=== PATIENT | female | born 1960 | race Caucasian/White ===

== ENCOUNTER 2019-07-16 14:55 | Outpatient (CLI) | payer OTHER, SELFPAY ==
[2019-07-18 17:56] LABS: Intrinsic Factor Blocking Ab Negative (Negative)
[2019-07-19 22:08] LABS: Methylmalonic Acid 240 nmol/L (87-318)
== END 2019-07-16 14:56 | disposition home or self-care (01) ==
LOC: CHSLAB 14:58
PROVIDERS: PCP Internal Medicine; Visit Provider Internal Medicine
DX: R79.0 Abnormal level of blood mineral (principal); E53.8 Deficiency of other specified B group vitamins; E83.10 Disorder of iron metabolism, unspecified; R79.89 Other specified abnormal findings of blood chemistry
CPT/HCPCS: 36415; 81256; 83921; 86340

== ENCOUNTER 2019-08-13 07:58 | Outpatient (CLI) | payer OTHER, SELFPAY ==
--- NOTE | ~2019-08-13 | US_ITS ---
US right upper quadrant INDICATION: Elevated liver enzymes PROCEDURE: Realtime right upper abdominal ultrasound. COMPARISON: No prior studies for comparison. FINDINGS: The pancreas is normal without focal mass or pancreatic ductal dilation. Liver echotexture is increased, consistent with fatty infiltration. There is normal directional flow in the portal ve in. The gallbladder is normal without stones, gallbladder wall thickening or pericholecystic fluid. Comm on bile duct measures 3 mm. No sonographic Johnson's sign. IMPRESSION: 1: Fatty infiltration of the liver. Reviewed, dictated and finalized at location A.
== END 2019-08-13 07:59 | disposition home or self-care (01) ==
PROVIDERS: PCP Internal Medicine; Visit Provider Internal Medicine
DX: R94.5 Abnormal results of liver function studies (principal)
CPT/HCPCS: 76705

== ENCOUNTER 2019-08-29 07:57 | Outpatient (RCR) | payer OTHER, SELFPAY ==
--- NOTE | 2019-08-29 08:49 | PTOPEVAL ---
Thank you for referring Camille Shultz to [facility]. Please review, sign, date and return this plan of care NILO. I agree with and certify that the following plan of care is medically necessary. Referring Physician Date Admitting Provider: Attending Provider: Yancy Guerrero MD Referring Provider: *PT Outpatient Evaluation Start: 08/29/19 08:07 Freq: Status: Active Protocol: Document 08/29/19 08:08 LUCIEN (Rec: 08/29/19 08:43 LUCIEN [id number]) Therapy Assessment Status Assessment Status Assessment Status Evaluation Outpatient Past Medical History Neurological History Hx Neurological Disorders No Significant History Cardiovascular History Hx Hypercholesterolemia Yes Hx Hypertension Yes Respiratory History Hx Other Respiratory Disorders Yes: Recent Flu A Gastrointestinal History Hx Gastrointestinal Disorders No Significant History Genitourinary History Hx Genitourinary Disorders No Significant History Musculoskeletal History Hx Musculoskeletal Disorders No Significant History Hematological History Hx Hematological Disorders No Significant History Psychosocial History Hx Anxiety Yes Pain History History of Any Previous or Ongoing No Significant History Instance of Pain Anesthesia History Hx Anesthesia Reactions No Significant History Evaluation Information Problem Diagnosis cervical radiculopathy Onset 06/17/19 Subjective Information 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 She states that pain is located at the neck and radiates into the left shoulder. She reports turning her head to the left while driving will also increase her pain. she states that she had MRI about 3 years ago which revealed disc bulging and arthritis in the neck. She states that her neck pain will wake her at night, espeically with sleeping on her side. Pt. reports that her goal for therapy is to reduce her neck pain. 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
--- NOTE | 2019-09-03 16:05 | PCPTNOTE ---
09/03/19-pt cancelled today's appointment secondary to sinus headache. -.
--- NOTE | 2019-09-30 10:14 | PTOPEVAL ---
Thank you for referring Camille Shultz to [facility].? The patient is scheduled to be seen for therapy? ____x/week for ___ weeks. Please review, sign, date and return this plan of care NILO. I agree with and certify that the following plan of care is medically necessary. Referring Physician Date Admitting Provider: Attending Provider: Yancy Guerrero MD Referring Provider: *PT Outpatient Evaluation Start: 08/29/19 08:07 Freq: Status: Active Protocol: Document 09/30/19 09:25 LUCIEN (Rec: 09/30/19 10:10 LUCIEN [id number]) Outpatient Past Medical History Neurological History Hx Neurological Disorders No Significant History Cardiovascular History Hx Hypercholesterolemia Yes Hx Hypertension Yes Respiratory History Hx Other Respiratory Disorders Yes: Recent Flu A Gastrointestinal History Hx Gastrointestinal Disorders No Significant History Genitourinary History Hx Genitourinary Disorders No Significant History Musculoskeletal History Hx Musculoskeletal Disorders No Significant History Hematological History Hx Hematological Disorders No Significant History Psychosocial History Hx Anxiety Yes Pain History History of Any Previous or Ongoing No Significant History Instance of Pain Anesthesia History Hx Anesthesia Reactions No Significant History Evaluation Information Problem Diagnosis cervical radiculopathy Onset 06/17/19 Additional Evaluation Detail NDI=12% disability Subjective Information Pt. reports pain is less Query Text:As Reported By Patient/ intense. She reports being Family more concious of her posture at this time Pain Assessment Pain Scale Pain Scale Used Numeric (1 - 10) Self Report Pain Assessment Neck Reported Pain Level 3 Lowest Pain Intensity 0 Greatest Pain Intensity 3 Pain Score Pain Score 3: Self Report Cervical and Lumbar ROM Cervical ROM Cervical Flexion (0-60) 55 Query Text:Active in Degrees Cervical Extension (0-70) 50 Query Text:Active in Degrees Cervical Lateral Flexion Right (0-50) 40 Query Text:Active in Degrees Cervical Lateral Flexion Left (0-50) 35 Query Text:Active in Degrees Cervical Rotation Right (0-90) 75 Query Text:Active in Degrees Cervical Rotation Left (0-90) 55 Query Text:Active in Degrees Upper Extremity Muscle Strength Testing General Upper Extremity Strength Gross Upper Extremity Strength Comments bilateral shoulder flexion 5/5 , right shoulder ER 4+/5, left shoulder ER 5/5, bilateral shoulder abduction 5/5,
== END 2019-09-30 10:48 | disposition home or self-care (01) ==
LOC: CHSPT 07:57
PROVIDERS: PCP Internal Medicine; Visit Provider Internal Medicine
DX: M54.12 Radiculopathy, cervical region (principal)
CPT/HCPCS: 97012; 97014; 97110; 97161; G0283

== ENCOUNTER 2019-10-18 07:02 | Outpatient (CLI) | payer OTHER, SELFPAY ==
[2019-10-18 08:38] LABS: Alanine Aminotransferase 45 U/L (14-59); Alkaline Phosphatase 60 U/L (46-116); Anion Gap 8 mmol/L (8-16); Aspartate Amino Transferase 28 U/L (15-37); Bilirubin,Total 0.6 mg/dL (0.00-1.00); Blood Urea Nitrogen 14 mg/dL (7-18); Calcium 9.5 mg/dL (8.5-10.1); Carbon Dioxide 27 mmol/L (21-32); Chloride 104 mmol/L (98-108); Estimated Glomerular Filt Rate 50; Glucose 141 mg/dL (70-99); Osmolality Calculated 290 mOsm/kg (285-295); Potassium 4.2 mmol/L (3.5-5.1); Sodium 139 mmol/L (136-145); Total Protein 7.4 g/dL (6.4-8.2)
[2019-10-18 17:16] LABS: Basophils Absolute Auto 0.03 K/mm3 (0.00-0.10); Basophils Percent Auto 0.6 % (0.0-1.0); Eosinophils Absolute Auto 0.09 K/mm3 (0.02-0.50); Eosinophils Percent Auto 1.7 % (1.0-6.0); Hematocrit 40.4 % (35.0-49.0); Hemoglobin 12.7 g/dL (12.0-15.0); Immature Granulocyte Absolute 0.02 K/mm3 (0.00-0.00); Immature Granulocyte Percent A 0.4 % (0.0-0.0); Lymphocytes Percent Auto 37.7 % (18.0-42.0); Mean Corpuscular HGB Conc 31.4 g/dL (32.0-36.0); Mean Corpuscular Hemoglobin 32.5 pg (27.0-31.0); Mean Corpuscular Volume 103.3 fL (78.0-102.0); Mean Platelet Volume 10.1 fl (9.2-11.8); Monocytes Absolute Auto 0.66 K/mm3 (0.10-0.90); Monocytes Percent Auto 12.5 % (2.0-11.0); Neutrophils Absolute Auto 2.5 K/mm3 (1.7-7.2); Neutrophils Percent Auto 47.1 % (50.0-70.0); Platelet Count Result 368 K/mm3 (150-420); Red Blood Count 3.91 M/mm3 (4.20-5.40); Red Cell Distribution Width 13.9 % (11.6-14.4); White Blood Count 5.3 K/mm3 (4.8-10.8)
[2019-10-18 17:52] LABS: Vitamin B12 338 pg/mL (193-986)
== END 2019-10-18 07:03 | disposition home or self-care (01) ==
LOC: CHSAUDIO 07:04
PROVIDERS: PCP Internal Medicine; Visit Provider Internal Medicine
DX: R94.5 Abnormal results of liver function studies (principal); D51.9 Vitamin B12 deficiency anemia, unspecified
CPT/HCPCS: 36415; 80053; 82607; 85025

== ENCOUNTER 2020-01-03 12:08 | Outpatient (CLI) | payer OTHER, SELFPAY ==
[2020-01-03 12:25] LABS: Basophils Absolute Auto 0.03 K/mm3 (0.00-0.10); Basophils Percent Auto 0.5 % (0.0-1.0); Eosinophils Absolute Auto 0.07 K/mm3 (0.02-0.50); Eosinophils Percent Auto 1.1 % (1.0-6.0); Hematocrit 39.4 % (35.0-49.0); Immature Granulocyte Absolute 0.01 K/mm3 (0.00-0.00); Immature Granulocyte Percent A 0.2 % (0.0-0.0); Lymphocytes Absolute Auto 2.27 K/mm3 (1.10-4.50); Mean Corpuscular Hemoglobin 32.1 pg (27.0-31.0); Mean Corpuscular Volume 97.3 fL (78.0-102.0); Mean Platelet Volume 9.6 fl (9.2-11.8); Monocytes Absolute Auto 0.48 K/mm3 (0.10-0.90); Monocytes Percent Auto 7.6 % (2.0-11.0); Neutrophils Absolute Auto 3.5 K/mm3 (1.7-7.2); Neutrophils Percent Auto 54.6 % (50.0-70.0); Platelet Count Result 265 K/mm3 (150-420); Red Blood Count 4.05 M/mm3 (4.20-5.40); Red Cell Distribution Width 12.9 % (11.6-14.4); White Blood Count 6.3 K/mm3 (4.8-10.8)
[2020-01-03 12:30] LABS: Add Urine Microscopic? YES; Appearance Urine Sl Cloudy (Clear); Bilirubin Urine Negative (Negative); Blood Urine Negative (Negative); Color Urine Yellow (Yellow); Glucose Urine UA Negative (Negative); Ketones Urine Negative (Negative); Leukocyte Esterase Ur 1+ (Negative); Nitrate Urine Positive (Negative); Protein Urine Negative (Negative); Specific Grav Ur 1.025 (1.010-1.020); Urobilinogen Urine 0.2 mg/dL (0.2-1.0)
[2020-01-03 12:38] LABS: Bacteria Urine 3+ /hpf; RBC Urine 0-2 /hpf (0-2); Squamous Epithelial Cell Urine Occasional /hpf (Few); WBC Urine 21-30 /hpf (0-3)
[2020-01-03 13:55] LABS: Alanine Aminotransferase 35 U/L (14-59); Albumin Level 3.7 g/dL (3.4-5.0); Alkaline Phosphatase 55 U/L (46-116); Anion Gap 7 mmol/L (8-16); Aspartate Amino Transferase 18 U/L (15-37); Bilirubin,Total 0.3 mg/dL (0.00-1.00); Blood Urea Nitrogen 16 mg/dL (7-18); Calcium 9.5 mg/dL (8.5-10.1); Carbon Dioxide 30 mmol/L (21-32); Chloride 106 mmol/L (98-108); Estimated Glomerular Filt Rate > 60; Ferritin 543 ng/mL (8-252); Free T4 Free Thyroxine 0.75 ng/dL (0.76-1.46); Glucose 132 mg/dL (70-99); Iron 72 ug/dL (50-170); Osmolality Calculated 299 mOsm/kg (285-295); Percent Iron Saturation 17 % (12-57); Potassium 4.2 mmol/L (3.5-5.1); Sodium 143 mmol/L (136-145); Thyroid Stimulating Hormone 1.42 uIU/mL (0.36-3.74); Total Protein 6.9 g/dL (6.4-8.2); Vitamin B12 376 pg/mL (193-986)
[2020-01-04 08:45] LABS: Cholesterol 184 mg/dL (0-200); HDL Direct 45 mg/dL (40-60); LDL Cholesterol Calculated 86 mg/dL (<130); Triglycerides 263 mg/dL (0-150)
[2020-01-08 12:24] LABS: Vitamin D 25 Hydroxy 41 ng/mL (30-100)
== END 2020-01-03 12:09 | disposition home or self-care (01) ==
LOC: CHSLAB 12:11
PROVIDERS: PCP Internal Medicine; Visit Provider Internal Medicine
DX: E55.9 Vitamin D deficiency, unspecified (principal); E53.8 Deficiency of other specified B group vitamins; R94.5 Abnormal results of liver function studies; I10 Essential (primary) hypertension; R73.01 Impaired fasting glucose; R79.0 Abnormal level of blood mineral
CPT/HCPCS: 36415; 80053; 80061; 81001; 82306; 82607; 82728; 83036; 83540; 83550; 84439; 84443; 84481; 85025

== ENCOUNTER 2020-02-01 09:19 | Outpatient (CLI) | payer OTHER, SELFPAY ==
[2020-02-01 09:34] LABS: Add Urine Microscopic? NO; Appearance Urine Clear (Clear); Bilirubin Urine Negative (Negative); Blood Urine Negative (Negative); Color Urine Yellow (Yellow); Glucose Urine UA Negative (Negative); Ketones Urine Negative (Negative); Leukocyte Esterase Ur Negative (Negative); Nitrate Urine Negative (Negative); Protein Urine Negative (Negative); Specific Grav Ur >= 1.030 (1.010-1.020); Urobilinogen Urine 0.2 mg/dL (0.2-1.0); pH Urine 5.5 (5.0-8.0)
== END 2020-02-01 09:20 | disposition home or self-care (01) ==
PROVIDERS: PCP Internal Medicine; Visit Provider Internal Medicine
DX: N39.0 Urinary tract infection, site not specified (principal)
CPT/HCPCS: 81003; 87086; 87088

== ENCOUNTER 2020-04-20 15:42 | Outpatient (CLI) | payer OTHER, SELFPAY ==
--- NOTE | ~2020-04-20 | XR_ITS ---
EXAMINATION: XR knee LT min 4V DATE: 04/20/2020 16:04 INDICATION: Left knee pain. TECHNIQUE: 4 views of left knee were obtained. COMPARISON: None. FINDINGS: Bone alignment is normal. No fracture. There is mild tricompartmental osteoarthritis. No kn ee joint effusion. IMPRESSION: 1. Mild left knee osteoarthritis. Reviewed, dictated and finalized at location A. [employer]PER
== END 2020-04-20 15:43 | disposition home or self-care (01) ==
PROVIDERS: PCP Internal Medicine; Visit Provider Internal Medicine
DX: M25.562 Pain in left knee (principal)
CPT/HCPCS: 73564

== ENCOUNTER 2020-05-02 06:56 | Outpatient (CLI) | payer OTHER, SELFPAY ==
--- NOTE | ~2020-05-02 | MR_ITS ---
EXAMINATION: MR knee LT wo con DATE: 05/02/2020 07:42 INDICATION: Left knee pain TECHNIQUE: Magnetic resonance imaging (MRI) of the left knee was performed without intravenous contra st. Sequences included coronal PD-weighted FSE, coronal PD-weighted FS FSE, sagittal T2-weighted FSE , sagittal PD-weighted FS FSE and axial PD weighted fat saturated FSE. COMPARISON: None. FINDINGS: Medial compartment: Complex medial meniscal tear with longitudinal horizontal component extending to the inferior articul ar surface of the posterior body and posterior horn with an secondary segments examined radial tear p live at the posterior horn. Articular cartilage is normal. Lateral compartment: Lateral meniscus is normal. Small region of partial-thickness chondral fissuring at the posterior asmita tral aspect of the lateral tibial plateau. Patellofemoral compartment: Partial-thickness chondral ulceration and deep fissuring involving at least 50% of the cartilage thic kness but without degenerative subchondral changes along the caudal third of the medial patellar face t, apical ridge and inferomedial aspect of the lateral facet. Trochlear cartilage is normal. Ligaments and tendons: Anterior and posterior cruciate ligaments are normal. The medial collateral ligament and fibular jazmin ateral ligament complex are normal. Mild distal quadriceps without discrete tear. Patellar tendon is normal. The visualized medial and lateral hamstring tendons as well as the iliotibial band are normal . Fluid: Small 2 moderate-sized left knee joint effusion. No loose osteochondral bodies identified. Osseous/other: Normal marrow signal. No fracture or pathologic marrow replacing process. IMPRESSION: 1. Complex medial meniscal tear. 2. Mild medial and lateral compartment osteoarthritis with small region of moderate grade chondral ma lacia the lateral tibial plateau and more extensive moderate grade patellar chondromalacia. 3. Mild distal quadriceps tendinopathy. 4. Small to moderate left knee joint effusion. Reviewed, dictated and finalized at location A. IMPRESSION: 1. Complex medial meniscal tear. 2. Mild medial and lateral compartment osteoarthritis with small region of mode rate grade chondral malacia the lateral tibial plateau and more extensive moder ate grade patellar chondromalacia. 3. Mild distal quadriceps tendinopathy. 4. Small to moderate left knee joint effusion.
== END 2020-05-02 06:57 | disposition home or self-care (01) ==
LOC: CHSIMG 06:59
PROVIDERS: PCP Internal Medicine; Visit Provider Internal Medicine
DX: M25.562 Pain in left knee (principal)
CPT/HCPCS: 73721

== ENCOUNTER 2020-05-12 07:58 | Outpatient (RCR) | payer OTHER, SELFPAY ==
--- NOTE | 2020-05-12 09:07 | PTOPEVAL ---
Thank you for referring Camille Shultz to [facility].? The patient is scheduled to be seen for therapy? ____x/week for ___ weeks. Please review, sign, date and return this plan of care NILO. I agree with and certify that the following plan of care is medically necessary. Referring Physician Date Admitting Provider: Attending Provider: Yancy Guerrero MD Referring Provider: *PT Outpatient Evaluation Start: 05/12/20 08:09 Freq: Status: Active Protocol: Document 05/12/20 08:05 Hetal (Rec: 05/12/20 08:55 [facility] [email or web address]) Therapy Assessment Status Assessment Status Assessment Status Evaluation Outpatient Past Medical History Neurological History Hx Neurological Disorders No Significant History Cardiovascular History Hx Hypercholesterolemia Yes Hx Hypertension Yes Respiratory History Hx Other Respiratory Disorders Yes: Recent Flu A Gastrointestinal History Hx Gastrointestinal Disorders No Significant History Genitourinary History Hx Genitourinary Disorders No Significant History Musculoskeletal History Hx Musculoskeletal Disorders No Significant History Hematological History Hx Hematological Disorders No Significant History Psychosocial History Hx Anxiety Yes Pain History History of Any Previous or Ongoing No Significant History Instance of Pain Anesthesia History Hx Anesthesia Reactions No Significant History Evaluation Information Problem Diagnosis L knee pain, meniscus tear, DJD Onset 03/16/20 Additional Evaluation Detail LEFS = 62% functionally declined Subjective Information patient reports she has been Query Text:As Reported By Patient/ having pain in the L knee for Family about 1-2 months. she reports no injury to the L knee. she reports pain is worse with getting up after sitting or lying down for an extended time. she reports it is painful going up and down stairs. she reports increased pain/pressure with standing initially. she reports she also has noticed some clicking in the patella. patient reports she is unable to kneel down the floor to get up. patient reports negative x-ray, but MRI reports DJD, chondromalcia, and a L medial meniscus te
--- NOTE | 2020-06-30 13:31 | PCPTNOTE ---
06/30/20 - patient has not been to skilled PT in over a month. as of this date, she will be DC'd due to poor attendance. all progress towards goals will be taken from her most recent evaluation/note.
== END 2020-05-19 16:21 | disposition home or self-care (01) ==
LOC: CHSPT 07:58
PROVIDERS: PCP Internal Medicine; Visit Provider Internal Medicine
DX: M25.562 Pain in left knee (principal); S83.242A Other tear of medial meniscus, current injury, left knee, initial encounter; M17.12 Unilateral primary osteoarthritis, left knee
CPT/HCPCS: 97110; 97161

== ENCOUNTER 2020-05-27 11:16 | Outpatient (CLI) | payer OTHER, SELFPAY ==
[2020-05-27 12:17] LABS: SARS-CoV-2 RNA PCR Negative (Negative)
== END 2020-05-27 11:17 | disposition home or self-care (01) ==
LOC: CHSLAB 11:19
PROVIDERS: PCP Internal Medicine; Visit Provider Internal Medicine
DX: Z20.822 Contact with and (suspected) exposure to COVID-19 (principal)
CPT/HCPCS: C9803; U0003; U0005

== ENCOUNTER 2020-07-14 11:20 | Outpatient (CLI) | payer OTHER, SELFPAY ==
[2020-07-14 11:32] LABS: Basophils Absolute Auto 0.04 K/mm3 (0.00-0.10); Basophils Percent Auto 0.4 % (0.0-1.0); Eosinophils Absolute Auto 0.14 K/mm3 (0.02-0.50); Eosinophils Percent Auto 1.6 % (1.0-6.0); Hematocrit 41.2 % (35.0-49.0); Hemoglobin 14.1 g/dL (12.0-15.0); Immature Granulocyte Absolute 0.02 K/mm3 (0.00-0.00); Immature Granulocyte Percent A 0.2 % (0.0-0.0); Lymphocytes Absolute Auto 2.91 K/mm3 (1.10-4.50); Lymphocytes Percent Auto 32.6 % (18.0-42.0); Mean Corpuscular HGB Conc 34.2 g/dL (32.0-36.0); Mean Corpuscular Hemoglobin 30.9 pg (27.0-31.0); Mean Corpuscular Volume 90.2 fL (78.0-102.0); Mean Platelet Volume 9.2 fl (9.2-11.8); Monocytes Percent Auto 7.8 % (2.0-11.0); Neutrophils Absolute Auto 5.1 K/mm3 (1.7-7.2); Neutrophils Percent Auto 57.4 % (50.0-70.0); Platelet Count Result 243 K/mm3 (150-420); Red Blood Count 4.57 M/mm3 (4.20-5.40); White Blood Count 8.9 K/mm3 (4.8-10.8)
[2020-07-14 11:35] LABS: Add Urine Microscopic? NO; Appearance Urine Clear (Clear); Bilirubin Urine Negative (Negative); Blood Urine Negative (Negative); Color Urine Yellow (Yellow); Glucose Urine UA Negative (Negative); Ketones Urine Negative (Negative); Leukocyte Esterase Ur Negative LEU/UL (Negative); Nitrate Urine Negative (Negative); Protein Urine Negative (Negative); Specific Grav Ur >= 1.030 (1.010-1.020); Urobilinogen Urine 0.2 mg/dL (0.2-1.0); pH Urine 5.5 (5.0-8.0)
[2020-07-14 11:48] LABS: Hemoglobin A1C 6.6 % (<5.7)
[2020-07-14 11:56] LABS: Creatinine Urine 104.58 mg/dL (40-278); MALB Creatinine Ratio 12.4 mg/g (0-30); Microalbumin Urine Random < 13.0 mg/L
[2020-07-14 12:48] LABS: Alanine Aminotransferase 43 U/L (14-59); Albumin Level 3.9 g/dL (3.4-5.0); Alkaline Phosphatase 101 U/L (46-116); Anion Gap 11 mmol/L (8-16); Aspartate Amino Transferase 24 U/L (15-37); Bilirubin,Total 0.5 mg/dL (0.00-1.00); Blood Urea Nitrogen 29 mg/dL (7-18); Calcium 9.2 mg/dL (8.5-10.1); Carbon Dioxide 27 mmol/L (21-32); Chloride 100 mmol/L (98-108); Cholesterol 160 mg/dL (0-200); Creatine Kinase 108 U/L (26-192); Estimated Glomerular Filt Rate > 60; Glucose 108 mg/dL (70-99); HDL Direct 47 mg/dL (40-60); LDL Cholesterol Calculated 48 mg/dL (<130); Osmolality Calculated 292 mOsm/kg (285-295); Potassium 4.2 mmol/L (3.5-5.1); Sodium 138 mmol/L (136-145); Total Protein 7.3 g/dL (6.4-8.2); Triglycerides 325 mg/dL (0-150); Vitamin B12 625 pg/mL (193-986)
[2020-07-17 11:22] LABS: Vitamin D 25 Hydroxy 40 ng/mL (30-100)
== END 2020-07-14 11:21 | disposition home or self-care (01) ==
LOC: CHSLAB 11:22
PROVIDERS: PCP Internal Medicine; Visit Provider Internal Medicine
DX: R73.01 Impaired fasting glucose (principal); E78.5 Hyperlipidemia, unspecified; I10 Essential (primary) hypertension; E53.8 Deficiency of other specified B group vitamins; E55.9 Vitamin D deficiency, unspecified
CPT/HCPCS: 36415; 80053; 80061; 81003; 82043; 82306; 82550; 82607; 83036; 85025

== ENCOUNTER 2020-09-04 10:01 | Outpatient (RCR) | payer OTHER, SELFPAY ==
--- NOTE | 2020-09-04 10:49 | PTOPEVAL ---
Thank you for referring Camille Shultz to [facility].? The patient is scheduled to be seen for therapy? ____x/week for ___ weeks. Please review, sign, date and return this plan of care NILO. I agree with and certify that the following plan of care is medically necessary. Referring Physician Date Admitting Provider: Attending Provider: Timo Ac, Referring Provider: *PT Outpatient Evaluation Start: 09/04/20 10:09 Freq: Status: Active Protocol: Document 09/04/20 10:10 [facility] (Rec: 09/04/20 10:48 [facility] [email or web address]) Therapy Assessment Status Assessment Status Assessment Status Evaluation Outpatient Past Medical History Neurological History Hx Neurological Disorders No Significant History Cardiovascular History Hx Hypercholesterolemia Yes Hx Hypertension Yes Respiratory History Hx Other Respiratory Disorders Yes: Recent Flu A Gastrointestinal History Hx Gastrointestinal Disorders No Significant History Genitourinary History Hx Genitourinary Disorders No Significant History Musculoskeletal History Hx Musculoskeletal Disorders No Significant History Hematological History Hx Hematological Disorders No Significant History Psychosocial History Hx Anxiety Yes Pain History History of Any Previous or Ongoing No Significant History Instance of Pain Anesthesia History Hx Anesthesia Reactions No Significant History Evaluation Information Problem Diagnosis s/p L knee arthroscopy Onset 09/01/20 Additional Evaluation Detail LEFS = 77% functionally declined Subjective Information patient reports she injured Query Text:As Reported By Patient/ her L knee back in march. Family she reports she just had a L knee scope for a meniscus tear and cartilage damage. she reports she has been instructed to keep her L knee alexander bandage on until tomorrow. she reports she continues to have pain with walking, standing, and increased tightness/pain waking up in the mornings. she has decreased to 1 crutch for ambulation, but uses it under her L shoulder. Prior Level of Function Comments Additional Prior Level of Function prior to surgery, patient was Comments limping on the L LE. she reports prior to march she was ambulating without any
--- NOTE | 2020-09-25 09:11 | PTOPEVAL ---
Thank you for referring Camille Shultz to [facility].? The patient is scheduled to be seen for therapy? ____x/week for ___ weeks. Please review, sign, date and return this plan of care NILO. I agree with and certify that the following plan of care is medically necessary. Referring Physician Date Admitting Provider: Attending Provider: Timo Ac, Referring Provider: *PT Outpatient Evaluation Start: 09/04/20 10:09 Freq: Status: Active Protocol: Document 09/25/20 07:55 ACR (Rec: 09/25/20 09:10 ACR [email or web address]) Therapy Assessment Status Assessment Status Assessment Status Progress Outpatient Past Medical History Neurological History Hx Neurological Disorders No Significant History Cardiovascular History Hx Hypercholesterolemia Yes Hx Hypertension Yes Respiratory History Hx Other Respiratory Disorders Yes: Recent Flu A Gastrointestinal History Hx Gastrointestinal Disorders No Significant History Genitourinary History Hx Genitourinary Disorders No Significant History Musculoskeletal History Hx Musculoskeletal Disorders No Significant History Hematological History Hx Hematological Disorders No Significant History Psychosocial History Hx Anxiety Yes Pain History History of Any Previous or Ongoing No Significant History Instance of Pain Anesthesia History Hx Anesthesia Reactions No Significant History Evaluation Information Problem Diagnosis s/p L arthroscopy Onset 09/01/20 Subjective Information Patient states that she has a Query Text:As Reported By Patient/ lot of difficulty with Family ascending and descending the stairs due to the pain and weakness. She states that she would be unable to walk a mile . Patient states she is unable to get down on the ground and then get back up because bending the knee is so painful . The patient would like to continue to continue to work on her strength and bending the knee. Patient states she Pain Assessment Timing of Pain Assessment Timing of Pain Assessment Assessment Pain Scale Pain Scale Used Numeric (1 - 10) Self Report Pain Assessment Left Knee(s) Reported Pain Level 3 Lowest Pain Intensity 1 Greatest Pain Intensity 5 Pain Score Pain Score 3: Self Report Interventions Used Interventions Used By Clinicians Activity or ADL's,Exercise Lower Extremity Range of Motion Knee Range o
--- NOTE | 2021-02-10 06:58 | PCPTNOTE ---
02/10/21 - patient has not been to skilled PT in several months. as of this date, she will be dc'd from skilled PT services and all progress towards goals will be taken from her most recent evaluation/note. LAURA
== END 2020-11-04 23:59 | disposition home or self-care (01) ==
LOC: CHSPT 10:01
PROVIDERS: Visit Provider Orthopaedic Surgery Adult Reconstructive Orthopaedic Surgery
DX: M25.562 Pain in left knee (principal); G89.29 Other chronic pain
CPT/HCPCS: 97016; 97110; 97163; 97530

== ENCOUNTER 2021-03-21 08:25 | Outpatient (CLI) | payer OTHER, SELFPAY ==
[2021-03-21 08:54] LABS: Hematocrit 44.3 % (35.0-49.0); Hemoglobin 15.2 g/dL (12.0-15.0); Mean Corpuscular HGB Conc 34.3 g/dL (32.0-36.0); Mean Corpuscular Hemoglobin 32.9 pg (27.0-31.0); Mean Corpuscular Volume 95.9 fL (78.0-102.0); Mean Platelet Volume 9.7 fl (9.2-11.8); Platelet Count Result 237 K/mm3 (150-420); Red Blood Count 4.62 M/mm3 (4.20-5.40); Red Cell Distribution Width 12.9 % (11.6-14.4); White Blood Count 5.5 K/mm3 (4.8-10.8)
[2021-03-21 08:56] LABS: Add Urine Microscopic? NO; Appearance Urine Clear (Clear); Bilirubin Urine Negative (Negative); Blood Urine Negative (Negative); Color Urine Light Yellow (Yellow); Glucose Urine UA Negative (Negative); Ketones Urine Negative (Negative); Leukocyte Esterase Ur Negative LEU/UL (Negative); Nitrate Urine Negative (Negative); Protein Urine Negative (Negative); Specific Grav Ur 1.015 (1.010-1.020); Urobilinogen Urine 0.2 mg/dL (0.2-1.0); pH Urine 5.5 (5.0-8.0)
[2021-03-21 09:01] LABS: Creatinine Urine 61.44 mg/dL (40-278); MALB Creatinine Ratio 21.1 mg/g (0-30); Microalbumin Urine Random < 13.0 mg/L
[2021-03-21 09:50] LABS: Alanine Aminotransferase 31 U/L (14-59); Alkaline Phosphatase 77 U/L (46-116); Anion Gap 10 mmol/L (8-16); Aspartate Amino Transferase 19 U/L (15-37); Bilirubin,Total 0.4 mg/dL (0.00-1.00); Blood Urea Nitrogen 20 mg/dL (7-18); Carbon Dioxide 29 mmol/L (21-32); Chloride 102 mmol/L (98-108); Cholesterol 191 mg/dL (0-200); Creatine Kinase 107 U/L (26-192); Estimated Glomerular Filt Rate > 60; Glucose 117 mg/dL (70-99); HDL Direct 53 mg/dL (40-60); LDL Cholesterol Calculated 82 mg/dL (<130); Osmolality Calculated 295 mOsm/kg (285-295); Potassium 3.7 mmol/L (3.5-5.1); Sodium 141 mmol/L (136-145); Total Protein 7.6 g/dL (6.4-8.2); Triglycerides 281 mg/dL (0-150); Vitamin B12 564 pg/mL (193-986)
== END 2021-03-21 08:26 | disposition home or self-care (01) ==
LOC: CHSLAB 08:27
PROVIDERS: PCP Internal Medicine; Visit Provider Internal Medicine
DX: E78.2 Mixed hyperlipidemia (principal); I10 Essential (primary) hypertension; E53.8 Deficiency of other specified B group vitamins; R73.01 Impaired fasting glucose
CPT/HCPCS: 36415; 80053; 80061; 81003; 82043; 82550; 82607; 83036; 85027

== ENCOUNTER 2021-09-13 15:21 | Outpatient (CLI) | payer OTHER, SELFPAY ==
[2021-09-13 15:40] LABS: Basophils Absolute Auto 0.03 K/mm3 (0.00-0.10); Basophils Percent Auto 0.4 % (0.0-1.0); Eosinophils Absolute Auto 0.12 K/mm3 (0.02-0.50); Eosinophils Percent Auto 1.8 % (1.0-6.0); Hematocrit 37.6 % (35.0-49.0); Hemoglobin 12.8 g/dL (12.0-15.0); Immature Granulocyte Absolute 0.03 K/mm3 (0.00-0.00); Immature Granulocyte Percent A 0.4 % (0.0-0.0); Lymphocytes Absolute Auto 2.31 K/mm3 (1.10-4.50); Lymphocytes Percent Auto 33.8 % (18.0-42.0); Mean Corpuscular Hemoglobin 33.6 pg (27.0-31.0); Mean Corpuscular Volume 98.7 fL (78.0-102.0); Mean Platelet Volume 9.4 fl (9.2-11.8); Monocytes Absolute Auto 0.58 K/mm3 (0.10-0.90); Monocytes Percent Auto 8.5 % (2.0-11.0); Neutrophils Absolute Auto 3.8 K/mm3 (1.7-7.2); Neutrophils Percent Auto 55.1 % (50.0-70.0); Platelet Count Result 204 K/mm3 (150-420); Red Blood Count 3.81 M/mm3 (4.20-5.40); Red Cell Distribution Width 12.8 % (11.6-14.4); White Blood Count 6.8 K/mm3 (4.8-10.8)
[2021-09-13 16:45] LABS: Alanine Aminotransferase 29 U/L (14-59); Albumin Level 3.8 g/dL (3.4-5.0); Alkaline Phosphatase 57 U/L (46-116); Anion Gap 9 mmol/L (8-16); Aspartate Amino Transferase 20 U/L (15-37); Bilirubin,Total 0.3 mg/dL (0.00-1.00); Blood Urea Nitrogen 23 mg/dL (7-18); Calcium 9.2 mg/dL (8.5-10.1); Carbon Dioxide 29 mmol/L (21-32); Chloride 104 mmol/L (98-108); Estimated Glomerular Filt Rate 57; Free T3 2.54 pg/mL (2.18-3.98); Free T4 Free Thyroxine 0.77 ng/dL (0.76-1.46); Glucose 121 mg/dL (70-99); Osmolality Calculated 298 mOsm/kg (285-295); Potassium 3.9 mmol/L (3.5-5.1); Sodium 142 mmol/L (136-145); Thyroid Stimulating Hormone 2.26 uIU/mL (0.36-3.74); Vitamin B12 1071 pg/mL (193-986)
[2021-09-13 16:47] LABS: Erythrocyte Sedimentation Rate 14 mm/hr (0-20)
[2021-09-13 16:49] LABS: CRP < 0.2 mg/dL (0.0-0.9)
[2021-09-16 13:09] LABS: Complement C3 171 mg/dL (83-193); Immunoglobulin G 924 mg/dL (600-1640)
[2021-09-20 07:28] LABS: SS-A <1.0; SS-B <1.0
== END 2021-09-13 15:22 | disposition home or self-care (01) ==
LOC: CHSLAB 15:23
PROVIDERS: PCP Internal Medicine; Visit Provider Internal Medicine
DX: G62.9 Polyneuropathy, unspecified (principal)
CPT/HCPCS: 36415; 80053; 82607; 82784; 84439; 84443; 84481; 85025; 85652; 86038; 86140; 86160; 86235

== ENCOUNTER 2021-10-13 12:32 | Outpatient (CLI) | payer OTHER, SELFPAY ==
--- NOTE | ~2021-10-13 | MM_ITS ---
EXAMINATION: MM screening rachael BI w shavon HISTORY: Screening mammogram TECHNIQUE: Craniocaudal and mediolateral oblique 3-D tomosynthesis images were obtained and synthetic 2-D images were generated. CAD analysis was submitted and interpreted. COMPARISON: No prior mammogram is available for comparison at this institution. BREAST PARENCHYMAL COMPOSITION: There are scattered areas of fibroglandular density. FINDINGS: RIGHT BREAST: There is no suspicious mass, calcification, or architectural distortion to suggest kasia gnancy. LEFT BREAST: There is a focal asymmetry in the anterior/middle third of the slightly upper breast bes t appreciated 4 cm from the nipple on the mediolateral oblique view. IMPRESSION: 1. Focal asymmetry of the left breast which may represent the patient's baseline however no compariso n is currently available. 2. Comparison with prior mammograms is necessary. BI-RADS Category 0: Incomplete: Needs comparison with prior mammograms. Reviewed, dictated and finalized at location A. IMPRESSION: 1. Focal asymmetry of the left breast which may represent the patient's baselin e however no comparison is currently available. 2. Comparison with prior mammograms is necessary. BI-RADS Category 0: Incomplete: Needs comparison with prior mammograms.
--- NOTE | ~2021-10-13 | DEXA_ITS ---
Bone Density Report Name: JULI KOO Age: 61 Sex: Female Ethnicity: White Date of : 1960 Indication: postmenopausal; screening for osteoporosis; height loss; prior fracture; hysterectomy; Referring Provider: Yancy Guerrero Study: Bone densitometry was performed. Exam Date: October 13, 2021 Accession number: [id number] Bone Density: Region BMD T-score Z-score Classification AP Spine(L1, L2, L3) 1.291 2.5 3.9 Normal Femoral Neck (Left) 0.880 0.3 1.6 Normal Total Hip (Left) 1.026 0.7 1.6 Normal Femoral Neck (Right) 0.868 0.2 1.5 Normal Total Hip (Right) 1.005 0.5 1.5 Normal Femoral Neck Mean 0.874 0.2 1.5 Normal Total Hip Mean 1.015 0.6 1.6 Normal World Health Organization criteria for BMD impression classify patients as: Normal (T-score at or above -1.0), Osteopenia (T-score between -1.0 and -2.5), or Osteoporosis (T-score at or below -2.5). 10-year Fracture Risk: FRAX not reported because: All T-scores for Spine Total, Hip Total, Femoral Neck at or above -1.0 Clinical Information Provided by Patient: Has had a low trauma fracture Has used the following medications: HRT (i.e. estrogen/hormone therapy), Vitamin D, Calcium Has the following medical conditions: Hysterectomy Patient maximum height was 67 Menopause Age: 55 Onset of menses at age 15 Number of children 2 Impression: The patient has normal bone mass. The patient has risk factors, including: previous fracture. Discussion: BONE DENSITY IS ABOVE THE MINIMUM DESIRABLE LEVEL AT ALL SKELETAL SITES TESTED. This patient?s bone mineral density is above the minimum desirable level (T-score -1.0 or better) at all sites measured. The patient should follow a healthful lifestyle (good nutrition with adequate calcium and vitamin D, and appropriate weight-bearing exercise). Follow-Up: Consider repeating this study in 5 years or sooner if there is some new clinical indication. Reported by: Dr. Antolin Alvares on 10/13/2021 1:11:00 PM. Reviewed, dictated and finalized at location A. [facility]
== END 2021-10-13 12:33 | disposition home or self-care (01) ==
LOC: CHSIMG 12:33
PROVIDERS: PCP Internal Medicine; Visit Provider Internal Medicine
DX: M81.0 Age-related osteoporosis without current pathological fracture (principal); Z12.31 Encounter for screening mammogram for malignant neoplasm of breast
CPT/HCPCS: 77063; 77067; 77080

== ENCOUNTER 2021-10-29 08:59 | Outpatient (CLI) | payer OTHER, SELFPAY ==
--- NOTE | ~2021-10-29 | MMUS_ITS ---
EXAMINATION: MM diagnostic rachael LT w shavon, US breast LT complete HISTORY: Focal asymmetry reported in anterior/middle third of slightly upper left breast on MLO scree gm view of 10/13/2021 TECHNIQUE: Additional 3-D tomosynthesis images of the left breast were performed and synthetic 2-D im ages were generated. CAD analysis was submitted and interpreted. High resolution complete left breast ultrasound including all 4 quadrants and subareolar area was performed. COMPARISON: 03/04/2016 [facility] bilateral screening mammogram 10/13/2021 bilateral screening mammogram FINDINGS: MAMMOGRAPHIC FINDINGS: No suspicious mass or architectural distortion, malignant calcification, skin thickening or retractio n or significant new or developing density is detected. ULTRASOUND: Normal-appearing left axillary lymph node. No suspicious left breast mass or shadowing is detected. IMPRESSION: 1. No mammographic evidence of malignancy 2. Routine annual mammographic screening is recommended. BI-RADS Category 1: Negative Reviewed, dictated and finalized at location A. IMPRESSION: 1. No mammographic evidence of malignancy 2. Routine annual mammographic screening is recommended. BI-RADS Category 1: Negative
== END 2021-10-29 09:00 | disposition home or self-care (01) ==
LOC: CHSIMG 09:00
PROVIDERS: PCP Internal Medicine; Visit Provider Internal Medicine
DX: R92.8 Other abnormal and inconclusive findings on diagnostic imaging of breast (principal)
CPT/HCPCS: 76641; 77061; 77065; G0279

== ENCOUNTER 2021-11-11 08:14 | Outpatient (CLI) | payer OTHER, SELFPAY ==
[2021-11-11 08:31] LABS: Basophils Absolute Auto 0.04 K/mm3 (0.00-0.10); Basophils Percent Auto 0.7 % (0.0-1.0); Eosinophils Absolute Auto 0.09 K/mm3 (0.02-0.50); Eosinophils Percent Auto 1.6 % (1.0-6.0); Hemoglobin 13.1 g/dL (12.0-15.0); Immature Granulocyte Absolute 0.01 K/mm3 (0.00-0.00); Immature Granulocyte Percent A 0.2 % (0.0-0.0); Lymphocytes Percent Auto 31.8 % (18.0-42.0); Mean Corpuscular HGB Conc 33.6 g/dL (32.0-36.0); Mean Corpuscular Hemoglobin 32.7 pg (27.0-31.0); Mean Corpuscular Volume 97.3 fL (78.0-102.0); Mean Platelet Volume 9.5 fl (9.2-11.8); Monocytes Absolute Auto 0.41 K/mm3 (0.10-0.90); Monocytes Percent Auto 7.2 % (2.0-11.0); Neutrophils Absolute Auto 3.3 K/mm3 (1.7-7.2); Neutrophils Percent Auto 58.5 % (50.0-70.0); Platelet Count Result 263 K/mm3 (150-420); Red Blood Count 4.01 M/mm3 (4.20-5.40); Red Cell Distribution Width 13.2 % (11.6-14.4); White Blood Count 5.7 K/mm3 (4.8-10.8)
[2021-11-11 08:32] LABS: Appearance Urine Clear (Clear); Bilirubin Urine Negative (Negative); Blood Urine Negative (Negative); Glucose Urine UA Negative (Negative); Ketones Urine Negative (Negative); Leukocyte Esterase Ur Trace (Negative); Nitrate Urine Positive (Negative); Protein Urine Negative (Negative); Specific Grav Ur 1.025 (1.010-1.020); Urobilinogen Urine 0.2 mg/dL (0.2-1.0)
[2021-11-11 08:38] LABS: Add Urine Microscopic? YES; Bacteria Urine 2+ /hpf; Color Urine Light Yellow (Yellow); RBC Urine None seen /hpf (0-2); Squamous Epithelial Cell Urine Rare /hpf (Few)
[2021-11-11 08:49] LABS: Hemoglobin A1C 5.8 % (<5.7)
[2021-11-11 09:16] LABS: Alanine Aminotransferase 25 U/L (14-59); Albumin Level 3.6 g/dL (3.4-5.0); Alkaline Phosphatase 65 U/L (46-116); Anion Gap 9 mmol/L (8-16); Aspartate Amino Transferase 16 U/L (15-37); Bilirubin,Total 0.6 mg/dL (0.00-1.00); Blood Urea Nitrogen 22 mg/dL (7-18); Calcium 9.4 mg/dL (8.5-10.1); Carbon Dioxide 28 mmol/L (21-32); Chloride 103 mmol/L (98-108); Cholesterol 236 mg/dL (0-200); Creatine Kinase 69 U/L (26-192); Estimated Glomerular Filt Rate > 60; Free T3 2.88 pg/mL (2.18-3.98); Free T4 Free Thyroxine 0.79 ng/dL (0.76-1.46); Glucose 127 mg/dL (70-99); HDL Direct 52 mg/dL (40-60); LDL Cholesterol Calculated 130 mg/dL (<130); Osmolality Calculated 295 mOsm/kg (285-295); Sodium 140 mmol/L (136-145); Thyroid Stimulating Hormone 2.23 uIU/mL (0.36-3.74); Total Protein 7.3 g/dL (6.4-8.2); Triglycerides 268 mg/dL (0-150); Vitamin B12 394 pg/mL (193-986)
[2021-11-13 21:46] LABS: Vitamin D 25 Hydroxy 28 ng/mL (30-100)
== END 2021-11-11 08:15 | disposition home or self-care (01) ==
LOC: CHSLAB 08:15
PROVIDERS: PCP Internal Medicine; Visit Provider Internal Medicine
DX: R73.01 Impaired fasting glucose (principal); E78.2 Mixed hyperlipidemia; G62.9 Polyneuropathy, unspecified; E55.9 Vitamin D deficiency, unspecified; I10 Essential (primary) hypertension; R00.0 Tachycardia, unspecified; E53.8 Deficiency of other specified B group vitamins
CPT/HCPCS: 36415; 80053; 80061; 81001; 82306; 82550; 82607; 83036; 84439; 84443; 84481; 85025

== ENCOUNTER 2022-03-07 09:58 | Outpatient (CLI) | payer OTHER, SELFPAY ==
--- NOTE | 2022-03-07 11:00 | NEURO_ITS ---
Impression: # Complains of difference in sensation of lower extremities. # Normal nerve conduction study. # Normal needle/EMG exam. # Clinical correlation recommended; Possibility of small fiber neuropathy and higher involvement cannot be ruled out. Motor Nerve Conduction Lower Extremities Peroneal Nerve Conduction Velocity (m/sec) Terminal Latency (msec) Response Voltage(mV) Popliteal space-Ankle Ankle Extensor Dig Brevis Popliteal space Ankle Right 43 4.5 2 2 Left 45 4.0 2 3 Tibial Nerve Conduction Velocity (m/sec) Terminal Latency (msec) Response Voltage(mV) Popliteal space-Ankle Ankle-Extensor Dig Brevis Popliteal space Ankle Right 44 4.9 4 6 Left 43 4.3 3 3 F-waves Peroneal Nerve (ms) Tibial Nerve (ms) Right 52.7 52.0 Left 51.9 53.0 Sensory Nerve Conduction Lower Extremities Sural Nerve Stimulation Terminal Latency (msec) Ankle Response Voltage (uV) Ankle Response Velocity (m/sec) Right 4.0 21 40 Left 3.4 8 47 Superficial Peroneal Nerve Stimulation Terminal Latency (msec) Ankle Response Voltage (uV) Ankle Response Velocity (m/sec) Right 3.6 13 44 Left 3.9 10 41 Left Right Muscles Examined Fibrillation Fasciculation Scarcity Voltage Duration Left Right Left Right Left Right Left Right Left Right X X Ant Tibialis X X Gastroc X X Fibularis Long X X Flex Dig Long X X Ext Dig Brev Abd Hallucis Quadriceps MTDD
== END 2022-03-07 09:59 | disposition home or self-care (01) ==
PROVIDERS: PCP Internal Medicine; Visit Provider Internal Medicine
DX: G62.9 Polyneuropathy, unspecified (principal)
CPT/HCPCS: 95886; 95910

== ENCOUNTER 2022-06-08 07:22 | Outpatient (CLI) | payer OTHER, SELFPAY ==
[2022-06-08 07:44] LABS: Appearance Urine Clear (Clear); Basophils Absolute Auto 0.05 K/mm3 (0.00-0.10); Basophils Percent Auto 0.6 % (0.0-1.0); Bilirubin Urine Negative (Negative); Blood Urine Negative (Negative); Color Urine Light Yellow (Yellow); Eosinophils Percent Auto 2.3 % (1.0-6.0); Glucose Urine UA Negative (Negative); Hematocrit 42.1 % (35.0-49.0); Hemoglobin 14.3 g/dL (12.0-15.0); Immature Granulocyte Absolute 0.02 K/mm3 (0.00-0.00); Immature Granulocyte Percent A 0.2 % (0.0-0.0); Ketones Urine Negative (Negative); Leukocyte Esterase Ur Negative LEU/UL (Negative); Lymphocytes Absolute Auto 3.32 K/mm3 (1.10-4.50); Lymphocytes Percent Auto 38.1 % (18.0-42.0); Mean Corpuscular Hemoglobin 32.2 pg (27.0-31.0); Mean Corpuscular Volume 94.8 fL (78.0-102.0); Mean Platelet Volume 9.8 fl (9.2-11.8); Monocytes Absolute Auto 0.65 K/mm3 (0.10-0.90); Monocytes Percent Auto 7.5 % (2.0-11.0); Neutrophils Absolute Auto 4.5 K/mm3 (1.7-7.2); Neutrophils Percent Auto 51.3 % (50.0-70.0); Nitrate Urine Positive (Negative); Platelet Count Result 264 K/mm3 (150-420); Protein Urine Negative (Negative); Red Blood Count 4.44 M/mm3 (4.20-5.40); Red Cell Distribution Width 13.2 % (11.6-14.4); Specific Grav Ur 1.025 (1.010-1.020); Urobilinogen Urine 0.2 mg/dL (0.2-1.0); White Blood Count 8.7 K/mm3 (4.8-10.8)
[2022-06-08 07:52] LABS: Creatinine Urine 88.34 mg/dL (40-278); MALB Creatinine Ratio 14.7 mg/g (0-30); Microalbumin Urine Random < 13.0 mg/L
[2022-06-08 07:54] LABS: Hemoglobin A1C 6.1 % (<5.7)
[2022-06-08 08:03] LABS: Add Urine Microscopic? YES
[2022-06-08 08:04] LABS: Bacteria Urine 4+ /hpf; RBC Urine 0-2 /hpf (0-2); Squamous Epithelial Cell Urine None seen /hpf (Few)
[2022-06-08 08:58] LABS: Alanine Aminotransferase 30 U/L (14-59); Albumin Level 4.1 g/dL (3.4-5.0); Alkaline Phosphatase 70 U/L (46-116); Anion Gap 10 mmol/L (8-16); Aspartate Amino Transferase 21 U/L (15-37); Bilirubin,Total 0.5 mg/dL (0.00-1.00); Blood Urea Nitrogen 22 mg/dL (7-18); Calcium 9.6 mg/dL (8.5-10.1); Carbon Dioxide 25 mmol/L (21-32); Chloride 104 mmol/L (98-108); Cholesterol 164 mg/dL (0-200); Creatine Kinase 78 U/L (26-192); Estimated Glomerular Filt Rate > 60; Glucose 128 mg/dL (70-99); HDL Direct 48 mg/dL (40-60); LDL Cholesterol Calculated 51 mg/dL (<130); Osmolality Calculated 293 mOsm/kg (285-295); Potassium 4.2 mmol/L (3.5-5.1); Sodium 139 mmol/L (136-145); Total Protein 7.7 g/dL (6.4-8.2); Triglycerides 323 mg/dL (0-150); Vitamin B12 484 pg/mL (193-986)
[2022-06-12 19:45] LABS: Vitamin D 25 Hydroxy 24 ng/mL (30-100)
== END 2022-06-08 07:23 | disposition home or self-care (01) ==
LOC: CHSLAB 07:25
PROVIDERS: PCP Internal Medicine; Visit Provider Internal Medicine
DX: R73.01 Impaired fasting glucose (principal); E78.2 Mixed hyperlipidemia; I10 Essential (primary) hypertension; N39.0 Urinary tract infection, site not specified; E55.9 Vitamin D deficiency, unspecified; E53.8 Deficiency of other specified B group vitamins; R82.90 Unspecified abnormal findings in urine
CPT/HCPCS: 36415; 80053; 80061; 81001; 82043; 82306; 82550; 82607; 83036; 85025; 87077; 87086; 87088; 87186

== ENCOUNTER 2022-08-19 13:21 | Outpatient (RCR) | payer OTHER, SELFPAY ==
[2022-08-19 12:05] VITALS: BP_SYST 65
--- NOTE | 2022-08-19 12:52 | PTOPEVAL1 ---
Assessment and note entered by JT File, PT Evaluation Information Assessment Status Evaluation Diagnosis R RTC repair Onset 05/12/22 [id number] Subjective Information patient reports she injured the R shoulder at work in late april/early may. 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 she reports she fell on the R shoulder and tried to catch her fall with the R arm/shoulder. she reports surgery to repair the torn RTC in the R shoulder was performed on 07/26/22. she reports she has a follow up with the surgeon roughly 3 weeks. she is 3 weeks and 3 days out from surgery . Reported Pain Level Pain Score 5: Self Report Assessment PT Clinical Summary mrs. cerna is a 62 yo woman who presents to skilled PT services for evaluation and treatment of R shoulder weakness, pain, decreased rom, and declined functional independence following a R RTC repair. she is a little over 3 weeks out and still restricted to PROM of the R shoulder. she is complicated by her pain levels and lack of consistent pain medication routine over the last few days increasing her mm guarding. she would benefit from continued skilled PT to achieve her objective/functional goals, return to work, and decrease pain. Plan of Care Interventions Electrical Stimulation,Hot Pack/Cold Pack,Manual Therapy,Neuro Re-education,Patient/Caregiver Educati,Therapeutic Activities,Therapeutic Exercise PT Services Indicated Yes Treatment Frequency and 3x weekly for 12 visits Duration These treatments will address the objective and functional deficits as defined above. The patient will be advanced safely and appropriately in order for the patient to progress towards his/her prior level of function. Additional exercises will be introduced and as well as a comprehensive home exercise program upon discharge, if needed, ?to ensure carryover of functional gains achieved in the clinic. This treatment plan has been reviewed and agreement upon by the patient.
--- NOTE | 2022-08-19 12:52 | OPREHPOC ---
Outpatient Therapy Plan of Care This is a Multidisciplinary Plan of Care that may contain components documented by all disciplines (PT, OT, and ST.) PT Problem 1 PT Problem #1 Knowledge Deficit PT Goal 1 Goal 1. independent and compliant with HEP to improve tolerance for continued skilled PT and exercises Target Visit 6 PT Problem 2 PT Problem #2 Impaired Range of Motion PT Goal 1 Goal 1. prom R shoulder flexion greater than 135 degrees 2. prom R shoulder ER greater than 45 degrees in scapular plane 3. patient to begin arom exercises of the R shoulder Target Visit 12 PT Problem 3 PT Problem #3 Pain PT Goal 1 Goal 1. patient to report 5/10 or less pain at worst Target Visit 12 PT Problem 4 PT Problem #4 Impaired Functional Mobil PT Goal 1 Goal 1. DC use of sling 2. sleep though the night in bed Target Visit 12
[2022-09-15 13:03] VITALS: BP_SYST 131
--- NOTE | 2022-09-15 14:42 | OPREHPOC ---
Outpatient Therapy Plan of Care This is a Multidisciplinary Plan of Care that may contain components documented by all disciplines (PT, OT, and ST.) PT Problem 1 PT Problem #1 Knowledge Deficit PT Goal 1 Goal 1. independent and compliant with HEP to improve tolerance for continued skilled PT and exercises Target Visit 6 PT Problem 2 PT Problem #2 Impaired Range of Motion PT Goal 1 Goal 1. prom R shoulder flexion greater than 135 degrees 2. prom R shoulder ER greater than 45 degrees in scapular plane 3. patient to begin arom exercises of the R shoulder Target Visit 12 Comment MET for flexion PT Problem 3 PT Problem #3 Pain PT Goal 1 Goal 1. patient to report 5/10 or less pain at worst Target Visit 12 Comment continue PT Problem 4 PT Problem #4 Impaired Functional Mobil PT Goal 1 Goal 1. DC use of sling 2. sleep though the night in bed Target Visit 12 Comment continue
--- NOTE | 2022-09-15 14:42 | PTOPEVAL1 ---
Assessment and note entered by Liliane Son DPT Evaluation Information Assessment Status Progress Diagnosis R RTC repair Onset 05/12/22 [id number] Subjective Information Patient reports she is still having pain but reports she can tell she is improving. Patient continued to be off work. She returns to MD next week. Reported Pain Level Pain Score 4: Self Report Assessment PT Clinical Summary Patient has been seen for 10 visits of skilled PT. Patient is progressing appropriately per protocol at this time. She has improved PROM and has been able to initiate AAROM as directed. She is currently off work and returns to MD next week. Patient will continue to be progressed per MD recommendations. Plan of Care Interventions Electrical Stimulation,Hot Pack/Cold Pack,Manual Therapy,Neuro Re-education,Patient/Caregiver Educati,Therapeutic Activities,Therapeutic Exercise PT Services Indicated Yes Treatment Frequency and continue with remaining 2 visits Duration These treatments will address the objective and functional deficits as defined above. The patient will be advanced safely and appropriately in order for the patient to progress towards his/her prior level of function. Additional exercises will be introduced and as well as a comprehensive home exercise program upon discharge, if needed, ?to ensure carryover of functional gains achieved in the clinic. This treatment plan has been reviewed and agreement upon by the patient.
[2022-09-19 08:14] VITALS: BP_SYST 131
--- NOTE | 2022-09-19 09:58 | OPREHPOC ---
Outpatient Therapy Plan of Care This is a Multidisciplinary Plan of Care that may contain components documented by all disciplines (PT, OT, and ST.) PT Problem 1 PT Problem #1 Knowledge Deficit PT Goal 1 Goal 1. independent and compliant with HEP to improve tolerance for continued skilled PT and exercises Target Visit 6 Progress Met PT Problem 2 PT Problem #2 Impaired Range of Motion PT Goal 1 Goal 1. AROM of R shooulder to 160 deg 2. prom R shoulder ER greater than 45 degrees in scapular plane 3. patient to begin arom exercises of the R shoulder Target Visit 24 Comment goal upgraded PT Problem 3 PT Problem #3 Pain PT Goal 1 Goal 1. patient to report 5/10 or less pain at worst Target Visit 24 Comment continue PT Problem 4 PT Problem #4 Impaired Functional Mobil PT Goal 1 Goal 1. DC use of sling 2. sleep though the night in bed Target Visit 12 Progress Met Comment continue
--- NOTE | 2022-09-19 09:58 | PTOPREEVAL ---
Assessment and note entered by Liliane Son DPT Evaluation Information Assessment Status Re-evaluation Diagnosis R RTC repair Onset 05/12/22 [id number] Subjective Information Patient reports her shoulder continues to improve. She reports she has been able to sleep in bed but has increased discomfort when she sleeps on the R side. She reports dressing is easier but has to wash her hair with one hand. Patient had to cancel her MD appointment last week due to family emergency and is scheduled for follow up on Reported Pain Level Pain Score 3: Self Report Assessment PT Clinical Summary Patient has been seen for 12 visits of skilled PT. Patient is progressing appropriately per protocol at this time. She has improved PROM and has been able to initiate AAROM as directed. She reports ability to sleep in bed all night and has improved ability to dress. She is currently off work and returns to MD next week. Patient will continue to be progressed per MD recommendations. Plan of Care Interventions Electrical Stimulation,Hot Pack/Cold Pack,Manual Therapy,Neuro Re-education,Patient/Caregiver Educati,Therapeutic Activities,Therapeutic Exercise PT Services Indicated Yes Treatment Frequency and continue 3x weekly for 12 visits as directed by MD Duration These treatments will address the objective and functional deficits as defined above. The patient will be advanced safely and appropriately in order for the patient to progress towards his/her prior level of function. Additional exercises will be introduced and as well as a comprehensive home exercise program upon discharge, if needed, ?to ensure carryover of functional gains achieved in the clinic. This treatment plan has been reviewed and agreement upon by the patient.
[2022-11-15 09:19] VITALS: BP_SYST 115
--- NOTE | 2022-11-15 10:02 | OPREHPOC ---
Outpatient Therapy Plan of Care This is a Multidisciplinary Plan of Care that may contain components documented by all disciplines (PT, OT, and ST.) PT Problem 1 PT Problem #1 Knowledge Deficit PT Goal 1 Goal 1. independent and compliant with HEP to improve tolerance for continued skilled PT and exercises Target Visit 6 Progress Met PT Problem 2 PT Problem #2 Impaired Range of Motion PT Goal 1 Goal 1. AROM of R shooulder flex to 160 degrees 2. AROM R shoulder ER to 80 degrees or better 3. AROM R shoulder IR to 65 degrees or better Target Visit 36 Progress Partially Met Comment goal upgraded PT Problem 3 PT Problem #3 Pain PT Goal 1 Goal 1. patient to report 3/10 or less pain at worst Target Visit 36 Progress Partially Met Comment goal upgraded PT Problem 4 PT Problem #4 Impaired Functional Mobil PT Goal 1 Goal 1. functional IR reach to the bra line 2. patient to safely lift 15lbs from floor to waist x30 reps with good mechanics and no pain 3. patient to safely lift 1lb overhead with the R UE x30 reps with good mechanics and no pain Target Visit 36 Progress Partially Met Comment continue PT Problem 5 PT Problem #5 Impaired Strength PT Goal 1 Goal 1. achieve 4+/5 or better R shoulder flex and abd strength 2. achieve 5/5 R elbow extension strength 3. achieve 4+/5 or better R shoulder ER strength Target Visit 36
--- NOTE | 2022-11-15 10:03 | PTOPREEVAL ---
Assessment and note entered by JT File, PT Evaluation Information Assessment Status Re-evaluation Diagnosis R RTC repair Onset 05/12/22 [id number] Subjective Information new orders limit patient to 15lbs from floor to waist lifting, and 1lb overhead lifting with the R arm. patient reports she is sore today. she reports she tried to complete some cleaning around the home last night and she has been sore since. she reports her MD suggests she continue skilled PT, and has kept her on light duty at work. Reported Pain Level Pain Score 4: Self Report Assessment PT Clinical Summary mrs. cerna presents to skilled PT services for her 24th skilled PT visit today. she has made significant progress in rom and strength of the R shoulder since her initial evaluation and along the way in skilled PT. she continues to display deficits in full R shoulder arom and strength preventing her full return to prior level work duties. she would benefit from continued skilled PT to address these strength and rom deficits to return to full duty work and quality of life. Plan of Care Interventions Electrical Stimulation,Hot Pack/Cold Pack,Manual Therapy,Neuro Re-education,Patient/Caregiver Educati,Therapeutic Activities,Therapeutic Exercise PT Services Indicated Yes Treatment Frequency and continue skilled PT 3x weekly for 12 more visits Duration These treatments will address the objective and functional deficits as defined above. The patient will be advanced safely and appropriately in order for the patient to progress towards his/her prior level of function. Additional exercises will be introduced and as well as a comprehensive home exercise program upon discharge, if needed, ?to ensure carryover of functional gains achieved in the clinic. This treatment plan has been reviewed and agreement upon by the patient.
== END 2022-11-16 18:00 | disposition still patient (30) ==
LOC: CHSPT 13:21
DX: M75.121 Complete rotator cuff tear or rupture of right shoulder, not specified as traumatic (principal)
CPT/HCPCS: 97014; 97110; 97140; 97150; 97161; G0283

== ENCOUNTER 2022-09-26 09:46 | Outpatient (CLI) | payer OTHER, SELFPAY ==
[2022-09-26 10:42] LABS: Hemoglobin A1C 5.9 % (<5.7)
[2022-09-26 12:02] LABS: Anion Gap 13 mmol/L (8-16); Blood Urea Nitrogen 17 mg/dL (7-18); Calcium 9.4 mg/dL (8.5-10.1); Carbon Dioxide 25 mmol/L (21-32); Chloride 100 mmol/L (98-108); Estimated Glomerular Filt Rate > 60; Glucose 146 mg/dL (70-99); Osmolality Calculated 290 mOsm/kg (285-295); Sodium 138 mmol/L (136-145)
== END 2022-09-26 09:47 | disposition home or self-care (01) ==
LOC: CHSLAB 09:47
PROVIDERS: PCP Internal Medicine; Visit Provider Internal Medicine
DX: E11.9 Type 2 diabetes mellitus without complications (principal)
CPT/HCPCS: 36415; 80048; 83036

== ENCOUNTER 2022-09-27 10:26 | Outpatient (CLI) | payer OTHER, SELFPAY ==
[2022-09-27 10:39] LABS: Basophils Absolute Auto 0.03 K/mm3 (0.00-0.10); Basophils Percent Auto 0.4 % (0.0-1.0); Eosinophils Percent Auto 1.3 % (1.0-6.0); Hematocrit 42.1 % (35.0-49.0); Immature Granulocyte Absolute 0.04 K/mm3 (0.00-0.00); Immature Granulocyte Percent A 0.5 % (0.0-0.0); Lymphocytes Absolute Auto 2.25 K/mm3 (1.10-4.50); Lymphocytes Percent Auto 29.8 % (18.0-42.0); Mean Corpuscular HGB Conc 33.3 g/dL (32.0-36.0); Mean Corpuscular Hemoglobin 32.5 pg (27.0-31.0); Mean Corpuscular Volume 97.7 fL (78.0-102.0); Monocytes Absolute Auto 0.72 K/mm3 (0.10-0.90); Monocytes Percent Auto 9.5 % (2.0-11.0); Neutrophils Absolute Auto 4.4 K/mm3 (1.7-7.2); Neutrophils Percent Auto 58.5 % (50.0-70.0); Platelet Count Result 211 K/mm3 (150-420); Red Blood Count 4.31 M/mm3 (4.20-5.40); Red Cell Distribution Width 14.4 % (11.6-14.4); White Blood Count 7.5 K/mm3 (4.8-10.8)
[2022-09-27 12:02] LABS: Free T3 2.52 pg/mL (2.18-3.98); Free T4 Free Thyroxine 0.75 ng/dL (0.76-1.46); Thyroid Stimulating Hormone 2.63 uIU/mL (0.36-3.74)
== END 2022-09-27 10:27 | disposition home or self-care (01) ==
PROVIDERS: PCP Internal Medicine; Visit Provider Internal Medicine
DX: G62.9 Polyneuropathy, unspecified (principal)
CPT/HCPCS: 36415; 84439; 84443; 84481; 85025

== ENCOUNTER 2022-11-15 08:03 | Outpatient (CLI) | payer OTHER, SELFPAY ==
--- NOTE | ~2022-11-15 | MM_ITS ---
EXAMINATION: MM screening rachael BI w shavon HISTORY: Screening mammogram TECHNIQUE: Craniocaudal and mediolateral oblique 3-D tomosynthesis images were obtained and synthetic 2-D images were generated. CAD analysis was submitted and interpreted. COMPARISON: 10/25/2021, 10/20/2021, 10/13/2021 BREAST PARENCHYMAL COMPOSITION: There are scattered areas of fibroglandular density. FINDINGS: There is a stable focal asymmetry of the left breast. No suspicious mass, calcification, or architectural distortion are identified in either breast to suggest malignancy. There has been no perez spicious interval change. IMPRESSION: 1. No mammographic evidence of malignancy. 2. Recommend routine screening mammography in one year. BI-RADS Category 2: Benign finding(s). Reviewed, dictated and finalized at location A.
== END 2022-11-15 08:04 | disposition home or self-care (01) ==
LOC: CHSIMG 08:04
PROVIDERS: PCP Internal Medicine; Visit Provider Internal Medicine
DX: Z12.31 Encounter for screening mammogram for malignant neoplasm of breast (principal)
CPT/HCPCS: 77063; 77067

== ENCOUNTER 2022-11-24 08:49 | Outpatient (RCR) | payer OTHER, SELFPAY ==
[2022-11-24 08:19] VITALS: BP_SYST 115
[2023-01-12 08:50] VITALS: BP_SYST 115
--- NOTE | 2023-01-12 09:48 | OPREHPOC ---
Outpatient Therapy Plan of Care This is a Multidisciplinary Plan of Care that may contain components documented by all disciplines (PT, OT, and ST.) PT Problem 1 PT Problem #1 Knowledge Deficit PT Goal 1 Goal 1. independent and compliant with HEP to improve tolerance for continued skilled PT and exercises Target Visit 6 Progress Met PT Problem 2 PT Problem #2 Impaired Range of Motion PT Goal 1 Goal 1. AROM of R shooulder flex to 160 degrees 2. AROM R shoulder ER to 80 degrees or better 3. AROM R shoulder IR to 65 degrees or better Target Visit 36 Progress Met Comment met PT Problem 3 PT Problem #3 Pain PT Goal 1 Goal 1. patient to report 3/10 or less pain at worst Target Visit 36 Progress Met Comment met PT Problem 4 PT Problem #4 Impaired Functional Mobil PT Goal 1 Goal 1. functional IR reach to the bra line 2. patient to safely lift 15lbs from floor to waist x30 reps with good mechanics and no pain 3. patient to safely lift 1lb overhead with the R UE x30 reps with good mechanics and no pain Target Visit 36 Progress Partially Met Comment goal for IR not met PT Problem 5 PT Problem #5 Impaired Strength PT Goal 1 Goal 1. achieve 4+/5 or better R shoulder flex and abd strength 2. achieve 5/5 R elbow extension strength 3. achieve 4+/5 or better R shoulder ER strength Target Visit 36 Progress Met
--- NOTE | 2023-01-12 09:48 | PTOPDC ---
Assessment and note entered by Liliane Son DPT Evaluation Information Assessment Status Re-evaluation Diagnosis R RTC repair Onset 05/12/22 [id number] Subjective Information Patient reports she returns to the MD on 01/20/23. She reports she is only having pain in the mornings after sleeping on her R side. She reports she believes she will be released at her next appointment. Reported Pain Level Pain Score 0: Self Report Assessment PT Clinical Summary Camille Shultz has been seen for 36 visits of skilled PT since undergoing R RTC repair. She met all goals during POC besides IR ROM. She is currently working light duty but returns to MD on 01/20/23. Today she was able to lift 1# overhead x 30 reps and 15# from floor to waist x 30 reps. She is independent with HEP and is appropriate for DC at this time. Plan of Care PT Services Indicated No
== END 2023-01-12 16:24 | disposition home or self-care (01) ==
LOC: CHSPT 08:49
DX: M75.121 Complete rotator cuff tear or rupture of right shoulder, not specified as traumatic (principal)
CPT/HCPCS: 97014; 97110; 97112; 97530; G0283

== ENCOUNTER 2022-12-14 22:50 | Emergency (ER) | payer OTHER, SELFPAY ==
--- NOTE | 2022-12-14 23:03 | ED.WOUNDLAC ---
HPI - Wound/Laceration General Chief Complaint: Wound/Laceration Stated Complaint: laceration Time Seen by Provider: 12/14/22 23:03 Source: patient Mode of arrival: ambulatory Limitations: no limitations History of Present Illness HPI narrative: 62-year-old female with a history of hypertension, depression status post recent right rotator cuff surgery presents to the ER with -- 2 cm laceration of left hand 1st web space. She accidentally thrust pointed can open into the 1st webspace. Profuse bleeding. No other injuries noted . The patient has intact sensation in the left thumb and the index finger. She is up-to-date on tetanus. Onset (ago): hour(s) ( 1 hour ago) Extremity Location: Left: hand Body four view annotation: 1. 2 cm laceration in the 1st webspace Place: home Patient tetanus UTD: Yes Context: accidental Associated symptoms: pain Related Data Home Medications Medication Instructions Recorded Confirmed citalopram 20 mg tablet (Celexa) 40 mg PO DAILY 02/25/19 12/14/22 atenolol 25 mg tablet (Tenormin) 25 mg PO Q12HR 12/14/22 12/14/22 lorazepam 0.5 mg tablet (Ativan) 0.5 mg PO PRN PRN Anxiety 12/14/22 12/14/22 losartan 25 mg tablet (Cozaar) 25 mg PO BID 12/14/22 12/14/22 Allergies Allergy/AdvReac Type Severity Reaction Status Date / Time No Known Allergies Allergy Verified 12/14/22 23:09 Review of Systems Review of Systems: All systems reviewed & are unremarkable except as noted in HPI and below Constitutional: Constitutional: Reports as per HPI and Reports no additional constitutional complaints Eyes: Eyes: Reports as per HPI and Reports no additional eye complaints ENT: Reports system reviewed and no additional complaints, except as documented and Reports as per HPI Cardiovascular: Cardiovascular: Reports as per HPI and Reports no additional cardiovascular complaints Respiratory: Respiratory: Reports as per HPI and Reports no additional respiratory complaints Gastrointestinal: Gastrointestinal: Reports as per HPI and Reports no additional gastrointestinal complaints Genitourinary: Genitourinary: Reports no additional female genitourinary complaints and Reports as per HPI Musculoskeletal: Musculoskeletal: Reports no additional musculoskeletal complaints and Reports as per HPI Integumentary/Breasts: Comments: 2 cm laceration in the left 1st webspace. Neurologic: Reports system reviewed and no additional complaints, except as documented and Reports as per HPI Comments: Distal neurovascular bundle is intact. Psychiatric: Psychiatric: Reports no additional psychiatric complaints and Reports as per HPI Endocrine: Endocrine: Reports no additional endocrine complaints and Reports as per HPI Hematologic/Lymphatic: Hematologic/Lymphatic: Reports no additional hematologic/lymphatic complaints and Reports as per HPI PMFSH Past Medical History Medical History Anxiety Endometriosis HTN (hypertension) Tachycardia Surgical History Surgical History History of [facility] Family History Family History Father , father at age 62 of mesothelioma Mesothelioma FH: carotid endarterectomy Hyperlipidemia Mother Congestive heart failure Acute myocardial infarction due to [place] Daughter Depression PTSD (post-traumatic stress disorder) Sibling Grand mal seizure S/P CABG x 5 Diabetes mellitus Sibling Hypertension Diabetes mellitus Sibling Diabetes mellitus Social History Social History Smoking status: Never smoker Second hand tobacco smoke exposure: Yes Alcohol intake: current Drinks per week: 1 Substance use: never Substance use type: does not use Gender identity (if verbalized by the patient): Femal
[2022-12-14 23:16] VITALS: BP 103/61; PULSE 69; RESP 18; TEMP 36.6; O2SAT 94
[2022-12-14] MEDS: HYDROcodone/acetaminophen (*CRX) 5-325 MG TABLET 1 TAB PO (23:33)
[2022-12-14] MEDS: LIDOCAINE HCL 1% LOCAL INJ 10 ML VIAL 3 ML INFILTRATE (23:45)
[2022-12-14] MEDS: CEPHALEXIN 500 MG CAPSULE PO (23:46)
== END 2022-12-14 23:52 | disposition home or self-care (01) ==
PROVIDERS: Emergency Provider Internal Medicine Critical Care Medicine; PCP Internal Medicine
DX: S61.412A Laceration without foreign body of left hand, initial encounter (principal); I10 Essential (primary) hypertension; Z79.899 Other long term (current) drug therapy; W26.8XXA Contact with other sharp object(s), not elsewhere classified, initial encounter
CPT/HCPCS: 12001; 99283; A9270

== ENCOUNTER 2023-02-02 08:32 | Outpatient (CLI) | payer OTHER, SELFPAY ==
[2023-02-02 09:11] LABS: Appearance Urine Clear (Clear); Bilirubin Urine Negative (Negative); Blood Urine Negative (Negative); Color Urine Light Yellow (Yellow); Glucose Urine UA Negative (Negative); Ketones Urine Negative (Negative); Leukocyte Esterase Ur Negative (Negative); Nitrate Urine Negative (Negative); Protein Urine Negative (Negative); Specific Grav Ur 1.025 (1.010-1.020); Urobilinogen Urine 0.2 mg/dL (0.2-1.0)
[2023-02-02 09:12] LABS: Basophils Absolute Auto 0.03 K/mm3 (0.00-0.10); Basophils Percent Auto 0.5 % (0.0-1.0); Eosinophils Absolute Auto 0.11 K/mm3 (0.02-0.50); Eosinophils Percent Auto 1.9 % (1.0-6.0); Hematocrit 38.3 % (35.0-49.0); Immature Granulocyte Absolute 0.01 K/mm3 (0.00-0.00); Immature Granulocyte Percent A 0.2 % (0.0-0.0); Lymphocytes Absolute Auto 1.92 K/mm3 (1.10-4.50); Lymphocytes Percent Auto 33.3 % (18.0-42.0); Mean Corpuscular HGB Conc 33.9 g/dL (32.0-36.0); Mean Corpuscular Hemoglobin 33.7 pg (27.0-31.0); Mean Corpuscular Volume 99.2 fL (78.0-102.0); Mean Platelet Volume 9.9 fl (9.2-11.8); Monocytes Absolute Auto 0.56 K/mm3 (0.10-0.90); Monocytes Percent Auto 9.7 % (2.0-11.0); Neutrophils Absolute Auto 3.1 K/mm3 (1.7-7.2); Neutrophils Percent Auto 54.4 % (50.0-70.0); Platelet Count Result 211 K/mm3 (150-420); Red Blood Count 3.86 M/mm3 (4.20-5.40); Red Cell Distribution Width 11.8 % (11.6-14.4); White Blood Count 5.8 K/mm3 (4.8-10.8)
[2023-02-02 09:19] LABS: Creatinine Urine 88.23 mg/dL (40-278); MALB Creatinine Ratio 14.7 mg/g (0-30); Microalbumin Urine Random < 13.0 mg/L
[2023-02-02 09:24] LABS: Hemoglobin A1C 5.8 % (<5.7)
[2023-02-02 09:44] LABS: Add Urine Microscopic? NO
[2023-02-02 10:18] LABS: Alanine Aminotransferase 26 U/L (14-59); Albumin Level 3.8 g/dL (3.4-5.0); Alkaline Phosphatase 59 U/L (46-116); Anion Gap 7 mmol/L (8-16); Aspartate Amino Transferase 17 U/L (15-37); Bilirubin,Total 0.4 mg/dL (0.00-1.00); Blood Urea Nitrogen 23 mg/dL (7-18); Calcium 9.4 mg/dL (8.5-10.1); Carbon Dioxide 30 mmol/L (21-32); Chloride 102 mmol/L (98-108); Cholesterol 175 mg/dL (0-200); Creatine Kinase 146 U/L (26-192); Estimated Glomerular Filt Rate > 60; Free T4 Free Thyroxine 0.81 ng/dL (0.76-1.46); Glucose 122 mg/dL (70-99); HDL Direct 44 mg/dL (40-60); LDL Cholesterol Calculated 62 mg/dL (<130); Osmolality Calculated 292 mOsm/kg (285-295); Potassium 3.7 mmol/L (3.5-5.1); Sodium 139 mmol/L (136-145); Thyroid Stimulating Hormone 1.62 uIU/mL (0.36-3.74); Triglycerides 344 mg/dL (0-150); Vitamin B12 291 pg/mL (193-986)
== END 2023-02-02 08:33 | disposition home or self-care (01) ==
LOC: CHSLAB 08:35
PROVIDERS: PCP Internal Medicine; Visit Provider Internal Medicine
DX: E11.9 Type 2 diabetes mellitus without complications (principal); I10 Essential (primary) hypertension; E78.2 Mixed hyperlipidemia; E53.8 Deficiency of other specified B group vitamins; G62.9 Polyneuropathy, unspecified; R00.0 Tachycardia, unspecified
CPT/HCPCS: 36415; 80053; 80061; 81003; 82043; 82550; 82607; 83036; 84439; 84443; 85025

== ENCOUNTER 2023-02-28 16:20 | Outpatient (CLI) | payer OTHER, SELFPAY ==
--- NOTE | ~2023-02-28 | XR_ITS ---
EXAMINATION: XR chest 2V DATE: 02/28/2023 16:43 INDICATION: Cough and wheezing. TECHNIQUE: Frontal and lateral views of the chest were obtained on 3 radiographs. COMPARISON: Chest 2 views 03/08/2019 FINDINGS: There is chronic mild elevation of left hemidiaphragm. No pneumonia, pleural effusion, or p neumothorax. The heart size is normal. There is an old healed right rib fracture. IMPRESSION: 1. No acute cardiopulmonary disease. Reviewed, dictated and finalized at location E. DEPARTMENT MARINE ENGINEER
[2023-02-28 16:38] LABS: Basophils Absolute Auto 0.03 K/mm3 (0.00-0.10); Basophils Percent Auto 0.5 % (0.0-1.0); Eosinophils Absolute Auto 0.19 K/mm3 (0.02-0.50); Eosinophils Percent Auto 3.1 % (1.0-6.0); Hematocrit 41.7 % (35.0-49.0); Hemoglobin 13.7 g/dL (12.0-15.0); Immature Granulocyte Absolute 0.01 K/mm3 (0.00-0.00); Immature Granulocyte Percent A 0.2 % (0.0-0.0); Lymphocytes Absolute Auto 1.78 K/mm3 (1.10-4.50); Lymphocytes Percent Auto 29.2 % (18.0-42.0); Mean Corpuscular HGB Conc 32.9 g/dL (32.0-36.0); Mean Corpuscular Hemoglobin 32.3 pg (27.0-31.0); Mean Corpuscular Volume 98.3 fL (78.0-102.0); Mean Platelet Volume 9.2 fl (9.2-11.8); Monocytes Absolute Auto 0.76 K/mm3 (0.10-0.90); Monocytes Percent Auto 12.5 % (2.0-11.0); Neutrophils Absolute Auto 3.3 K/mm3 (1.7-7.2); Neutrophils Percent Auto 54.5 % (50.0-70.0); Platelet Count Result 198 K/mm3 (150-420); Red Blood Count 4.24 M/mm3 (4.20-5.40); Red Cell Distribution Width 12.2 % (11.6-14.4); White Blood Count 6.1 K/mm3 (4.8-10.8)
[2023-02-28 16:54] LABS: Alanine Aminotransferase 30 U/L (14-59); Albumin Level 3.8 g/dL (3.4-5.0); Alkaline Phosphatase 69 U/L (46-116); Anion Gap 11 mmol/L (8-16); Aspartate Amino Transferase 20 U/L (15-37); Bilirubin,Total 0.5 mg/dL (0.00-1.00); Blood Urea Nitrogen 21 mg/dL (7-18); Calcium 8.5 mg/dL (8.5-10.1); Carbon Dioxide 26 mmol/L (21-32); Chloride 100 mmol/L (98-108); Estimated Glomerular Filt Rate 50; Glucose 103 mg/dL (70-99); Osmolality Calculated 287 mOsm/kg (285-295); Potassium 3.7 mmol/L (3.5-5.1); Sodium 137 mmol/L (136-145); Total Protein 7.4 g/dL (6.4-8.2)
[2023-02-28 17:13] LABS: Strep Group A RT-PCR NOT DETECTED (Negative)
[2023-02-28 17:14] LABS: Influenza A QL RT-PCR Negative (Negative); Influenza B QL RT-PCR Negative (Negative); RSV RNA, RT-PCR Positive (Negative); SARS-CoV-2 RNA PCR Negative (Negative)
== END 2023-02-28 16:21 | disposition home or self-care (01) ==
LOC: CHSLAB 16:22
PROVIDERS: PCP Internal Medicine; Visit Provider Internal Medicine
DX: R05.9 Cough, unspecified (principal); R06.2 Wheezing
CPT/HCPCS: 36415; 71046; 80053; 85025; 87637; 87651

== ENCOUNTER 2023-03-06 14:22 | Outpatient (CLI) | payer OTHER, SELFPAY ==
--- NOTE | ~2023-03-06 | XR_ITS ---
XR chest 2V 03/06/2023 14:38 Indication: Cough. RSV. Wheezing. Procedure: 2 view chest Comparison: No prior studies for comparison. Findings: Heart size is normal. Elevated left diaphragm. Healed right seventh rib fracture. No acute fracture. No focal air space disease, pulmonary edema, pleural effusion or suspected pneumothorax. Impression: 1: No acute cardiopulmonary disease. Reviewed, dictated and finalized at location B. FERTILITY SPECIALIST Impression: 1: No acute cardiopulmonary disease.
== END 2023-03-06 14:23 | disposition home or self-care (01) ==
LOC: CHSIMG 14:25
PROVIDERS: PCP Internal Medicine; Visit Provider Internal Medicine
DX: R05.9 Cough, unspecified (principal)
CPT/HCPCS: 71046

== ENCOUNTER 2023-03-28 11:42 | Outpatient (CLI) | payer OTHER, SELFPAY ==
[2023-03-28 12:02] LABS: Appearance Urine Clear (Clear); Bilirubin Urine Negative (Negative); Blood Urine Negative (Negative); Color Urine Yellow (Yellow); Glucose Urine UA Negative (Negative); Ketones Urine Negative (Negative); Leukocyte Esterase Ur Negative (Negative); Nitrate Urine Negative (Negative); Protein Urine Negative (Negative); Specific Grav Ur 1.015 (1.010-1.020); Urobilinogen Urine 0.2 mg/dL (0.2-1.0)
[2023-03-28 12:06] LABS: Add Urine Microscopic? NO
[2023-03-28 12:26] LABS: Anion Gap 12 mmol/L (8-16); Blood Urea Nitrogen 17 mg/dL (7-18); Calcium 8.9 mg/dL (8.5-10.1); Carbon Dioxide 26 mmol/L (21-32); Chloride 101 mmol/L (98-108); Estimated Glomerular Filt Rate 48; Glucose 169 mg/dL (70-99); Osmolality Calculated 293 mOsm/kg (285-295); Potassium 3.8 mmol/L (3.5-5.1); Sodium 139 mmol/L (136-145)
[2023-03-29 11:39] LABS: Alanine Aminotransferase 60 U/L (14-59); Albumin Level 3.3 g/dL (3.4-5.0); Alkaline Phosphatase 63 U/L (46-116); Aspartate Amino Transferase 63 U/L (15-37); Bilirubin,Total 1.5 mg/dL (0.00-1.00); Total Protein 6.5 g/dL (6.4-8.2)
== END 2023-03-28 11:43 | disposition home or self-care (01) ==
LOC: CHSLAB 11:44
PROVIDERS: PCP Internal Medicine; Visit Provider Internal Medicine
DX: I10 Essential (primary) hypertension (principal)
CPT/HCPCS: 36415; 80048; 80053; 81003

== ENCOUNTER 2023-04-13 09:15 | Outpatient (CLI) | payer OTHER, SELFPAY ==
[2023-04-13 10:07] LABS: Anion Gap 12 mmol/L (8-16); Blood Urea Nitrogen 22 mg/dL (7-18); Calcium 9.1 mg/dL (8.5-10.1); Carbon Dioxide 24 mmol/L (21-32); Chloride 103 mmol/L (98-108); Estimated Glomerular Filt Rate > 60; Glucose 138 mg/dL (70-99); Osmolality Calculated 293 mOsm/kg (285-295); Potassium 3.9 mmol/L (3.5-5.1); Sodium 139 mmol/L (136-145)
== END 2023-04-13 09:16 | disposition home or self-care (01) ==
PROVIDERS: PCP Internal Medicine; Visit Provider Internal Medicine
DX: I10 Essential (primary) hypertension (principal)
CPT/HCPCS: 36415; 80048

== ENCOUNTER 2023-04-28 08:19 | Outpatient (CLI) | payer OTHER, SELFPAY ==
[2023-04-28 08:54] LABS: Anion Gap 11 mmol/L (8-16); Blood Urea Nitrogen 16 mg/dL (7-18); Calcium 8.6 mg/dL (8.5-10.1); Carbon Dioxide 24 mmol/L (21-32); Chloride 107 mmol/L (98-108); Estimated Glomerular Filt Rate > 60; Glucose 149 mg/dL (70-99); Osmolality Calculated 298 mOsm/kg (285-295); Potassium 3.8 mmol/L (3.5-5.1); Sodium 142 mmol/L (136-145)
== END 2023-04-28 08:20 | disposition home or self-care (01) ==
LOC: CHSLAB 08:22
PROVIDERS: PCP Internal Medicine; Visit Provider Internal Medicine
DX: I10 Essential (primary) hypertension (principal)
CPT/HCPCS: 36415; 80048

== ENCOUNTER 2023-05-29 10:18 | Outpatient (CLI) | payer OTHER, SELFPAY ==
[2023-05-29 11:44] LABS: Anion Gap 14 mmol/L (4-12); Blood Urea Nitrogen 33 mg/dL (7-18); Calcium 7.9 mg/dL (8.5-10.1); Carbon Dioxide 23 mmol/L (21-32); Chloride 98 mmol/L (98-108); Estimated Glomerular Filt Rate 11; Glucose 176 mg/dL (70-99); Osmolality Calculated 291 mOsm/kg (285-295); Potassium 2.9 mmol/L (3.5-5.1); Sodium 135 mmol/L (136-145)
[2023-06-01 10:24] LABS: Vitamin B1 15 nmol/L (8-30)
== END 2023-05-29 10:19 | disposition home or self-care (01) ==
PROVIDERS: PCP Internal Medicine; Visit Provider Internal Medicine
DX: I10 Essential (primary) hypertension (principal); E51.9 Thiamine deficiency, unspecified
CPT/HCPCS: 36415; 80048; 84425

== ENCOUNTER 2023-05-29 15:23 | Emergency (ER) | payer OTHER, SELFPAY ==
[2023-05-29] VITALS (49 sets, daily range): BP systolic 91–133; BP diastolic 30–120; PULSE 67–84; RESP 14–29; TEMP 36.8–36.9; O2SAT 90–99
--- NOTE | ~2023-05-29 | XR_ITS ---
EXAMINATION: XR chest 1V portable DATE: 05/29/2023 16:28 INDICATION: Hypotension. TECHNIQUE: A single frontal view of the chest was obtained. COMPARISON: Chest 2 views 03/06/2023 FINDINGS: There is chronic mild elevation of left hemidiaphragm. There is mild atelectasis at left earnestine ng base. No pleural effusion or pneumothorax. The heart size is normal. There is an old healed right rib fracture. Again seen are changes of distal right clavicle resection. IMPRESSION: 1. Mild atelectasis at left lung base. Reviewed, dictated and finalized at location E.
--- NOTE | ~2023-05-29 | CT_ITS ---
EXAMINATION: CT abdomen pelvis wo con DATE: 05/29/2023 17:27 INDICATION: Acute kidney injury. TECHNIQUE: Computed tomography (CT) of the abdomen and pelvis was performed without intravenous contr ast. Automated exposure control and iterative reconstruction technique were employed. The dose-length product was 729.33 mGy-cm. COMPARISON: None. FINDINGS: The visualized portions of the lung bases demonstrate mild atelectasis. No pleural effusion . There is mild elevation of left hemidiaphragm. The heart size is normal. No pericardial effusion. T here are coronary artery calcifications. There is diffuse hepatic steatosis. The gallbladder is lara l. The spleen, pancreas, adrenal glands, and kidneys are normal. There is no urolithiasis. There is d iverticulosis of the colon without evidence of diverticulitis. There are no dilated loops of bowel. T he appendix is not visualized. Aortic atherosclerosis is noted. There are no pathologically enlarged lymph nodes. There is no free intraperitoneal fluid. There is mild thoracic spondylosis and severe earnestine mbar spondylosis. IMPRESSION: 1. Normal kidneys. 2. Diffuse hepatic steatosis. Reviewed, dictated and finalized at location E.
--- NOTE | ~2023-05-29 | US_ITS ---
Renal-Bladder ultrasound Clinical History: Acute renal insufficiency Technique: Real-time sonographic imaging of the kidneys and urinary bladder was performed. Findings: The right kidney measures 12.9 cm in length and the left kidney measures 13.0 cm. There is no hydronephrosis or renal calculus identified. Renal cortical echogenicity is within normal limits. No renal mass lesion is identified. The urinary bladder is moderately distended at the time of this exam. No intraluminal echoes are iden tified. No abnormal wall thickening is seen. Impression: Unremarkable ultrasound of the kidneys and urinary bladder. Reviewed, dictated and finalized at location M. Impression: Unremarkable ultrasound of the kidneys and urinary bladder.
--- NOTE | 2023-05-29 15:51 | ECG_ITS ---
SEE SCANNED COPY FOR CONFIRMED REPORT MTDD
--- NOTE | 2023-05-29 16:00 | ED.GENADULT ---
HPI - General Adult General Chief complaint: Recheck/Abnormal Lab/Rx <Ubaldo Rendon MD - Last Filed: 05/30/23 06:26> Stated complaint: altered lab values <Ubaldo Rendon MD - Last Filed: 05/30/23 06:26> Time Seen by Provider: 05/29/23 15:29 <Ubaldo Rendon MD - Last Filed: 05/30/23 06:26> History of Present Illness HPI narrative: This is a 62-year-old female sent by her primary care physician for labs. Patient has been having very labile blood pressures ranging from the 180s to 80 systolic. She has been put different blood pressure medication regimens but has just been feeling weak/dizzy for the last several months. Current regimen is Metoprolol 50mg XR and 2.5 mg indapamide in the AM and 100mg Losartan in the pm. Indapamide has been added in the last two weeks. At her regular appointment today with her primary care physician she was found to have blood pressures in the 80/50s. Her creatinine was 4.1 (BL 1.0) and potassium 2.9. patient was sent by her physician to the ED fluid resuscitation and admission. Throughout the interview patient makes multiple statements about how she she feels down. Patient states that she has been under significant stress has increased anxiety and depression lately. Stressors include her her passing away 5 years ago and not being able to work (shoulder injury last year / dizziness since march) She denies SI HI. She is on an SSRI and takes lorazepam as needed. She states that sometimes she does not eat because she feels depressed. <Ubaldo Rendon MD - Last Filed: 05/30/23 06:26> Related Data Home medications: Home Medications Medication Instructions Recorded Confirmed citalopram 20 mg tablet (Celexa) 40 mg PO DAILY 02/25/19 05/29/23 lorazepam 0.5 mg tablet (Ativan) 0.5 mg PO PRN PRN Anxiety 12/14/22 05/29/23 losartan 25 mg tablet (Cozaar) 25 mg PO BID 12/14/22 05/29/23 atorvastatin 40 mg tablet 40 mg PO DAILY 05/29/23 05/29/23 metoprolol succinate 25 mg 50 mg PO DAILY 05/29/23 05/29/23 tablet,extended release 24 hr trazodone 100 mg tablet 100 mg PO HS 05/29/23 05/29/23 <Ubaldo Rendon MD - Last Filed: 05/30/23 06:26> Allergies/adverse reactions: Allergies Allergy/AdvReac Type Severity Reaction Status Date / Time No Known Allergies Allergy Verified 05/29/23 16:32 <Ubaldo Rendon MD - Last Filed: 05/30/23 06:26> [facility] Past Medical History Medical History: Medical History Anxiety Endometriosis HTN (hypertension) Tachycardia <Ubaldo Rendon MD - Last Filed: 05/30/23 06:26> Surgical History Surgical History: Surgical History History of [facility] <Ubaldo Rendon MD - Last Filed: 05/30/23 06:26> Family History Family History: Family History Father , father at age 62 of mesothelioma Mesothelioma FH: carotid endarterectomy Hyperlipidemia Mother Congestive heart failure Acute myocardial infarction due to [place] Daughter Depression PTSD (post-traumatic stress disorder) Sibling Grand mal seizure S/P CABG x 5 Diabetes mellitus Sibling Hypertension Diabetes mellitus Sibling Diabetes mellitus <Ubaldo Rendon MD - Last Filed: 05/30/23 06:26> Social History Social History: Social History Smoking status: Never smoker Second hand tobacco smoke exposure: Yes Alcohol intake: current Drinks per week: 1 Substance use: never Substance use type: does not use Gender identity (if verbalized by the patient): Female Spiritual care concerns: Yes Agree to blood products: Yes <Ubaldo Rendon MD - Last Filed: 05/30/23 06:26> Exam Narrative: APPEARANCE: No apparent distress. Head: atraumatic. EYES: EOMI, NOSE:
[2023-05-29 16:13] LABS: Basophils Absolute Auto 0.02 K/mm3 (0.00-0.10); Basophils Percent Auto 0.4 % (0.0-1.0); Eosinophils Absolute Auto 0.01 K/mm3 (0.02-0.50); Eosinophils Percent Auto 0.2 % (1.0-6.0); Hematocrit 40.4 % (35.0-49.0); Hemoglobin 13.9 g/dL (12.0-15.0); Immature Granulocyte Absolute 0.02 K/mm3 (0.00-0.00); Immature Granulocyte Percent A 0.4 % (0.0-0.0); Lymphocytes Absolute Auto 1.11 K/mm3 (1.10-4.50); Lymphocytes Percent Auto 22.6 % (18.0-42.0); Mean Corpuscular HGB Conc 34.4 g/dL (32-36); Mean Corpuscular Volume 93.1 fL (78.0-102.0); Mean Platelet Volume 9.1 fl (9.2-11.8); Monocytes Absolute Auto 0.23 K/mm3 (0.10-0.90); Monocytes Percent Auto 4.7 % (2.0-11.0); Neutrophils Absolute Auto 3.53 K/mm3 (1.70-7.20); Neutrophils Percent Auto 71.7 % (50.0-70.0); Platelet Count Result 197 K/mm3 (150-420); Red Blood Count 4.34 M/mm3 (4.20-5.40); Red Cell Distribution Width 13.6 % (11.6-14.4); White Blood Count 4.9 K/mm3 (4.8-10.8)
[2023-05-29 16:29] LABS: Alanine Aminotransferase 358 U/L (14-59); Albumin Level 3.3 g/dL (3.4-5.0); Alkaline Phosphatase 124 U/L (46-116); Anion Gap 10 mmol/L (4-12); Aspartate Amino Transferase 432 U/L (15-37); Bilirubin,Total 2.4 mg/dL (0.00-1.00); Blood Urea Nitrogen 31 mg/dL (7-18); Calcium 7.9 mg/dL (8.5-10.1); Carbon Dioxide 30 mmol/L (21-32); Chloride 100 mmol/L (98-108); Estimated Glomerular Filt Rate 9; Glucose 163 mg/dL (70-99); Magnesium 1.3 mg/dL (1.8-2.4); Osmolality Calculated 300 mOsm/kg (285-295); Phosphorus 1.8 mg/dL (2.6-4.7); Potassium 2.8 mmol/L (3.5-5.1); Sodium 140 mmol/L (136-145)
[2023-05-29 16:32] LABS: Lactic Acid Reflex 3.1 mmol/L (0.4-2.0)
[2023-05-29 16:44] LABS: Thyroid Stimulating Hormone Reflex 3.12 u/IU/mL (0.36-3.74)
[2023-05-29 16:51] LABS: SARS-CoV-2 RNA PCR Negative (Negative)
[2023-05-29 16:53] LABS: Influenza A QL RT-PCR Negative (Negative); Influenza B QL RT-PCR Negative (Negative); RSV RNA, RT-PCR Negative (Negative)
[2023-05-29] MEDS: SODIUM CHLORIDE 0.9% IV 2,000 ML 999 ML IV CONT (16:53)
--- NOTE | 2023-05-29 17:07 | PC.NURSE ---
PT IS LYING ON STRETCHER WITH IVF INFUSING WITHOUT DIFFICULTY. PT IS REPORTING A HEADACHE, EPR NOTIFIED AND MEDICATIONS TO BE ADMINISTERED. PT IS AWAITING CT AT THIS TIME. WILL CONTINUE TO MONITOR.
[2023-05-29] MEDS: MAGNESIUM SULF 2 GM/WATER 50ML 2 GM/50 ML BAG IVPB (17:35)
[2023-05-29] MEDS: ACETAMINOPHEN 500 MG TABLET 1000 MG PO (17:37)
[2023-05-29] MEDS: POTASSIUM CHLORIDE 20 MEQ PACKET (FOR LIQUID) 40 MEQ PO (17:38)
[2023-05-29] MEDS: POTASSIUM/PHOSPHORUS/SODIUM 1.5 GM PACKET 1 PACKET PO ×2 (17:39→23:14)
[2023-05-29] MEDS: CALCIUM GLUC 2,000 MG/NS 100ML 2,000 MG/100 ML BAG 100 MG IVPB (17:42)
--- NOTE | 2023-05-29 18:00 | PC.NURSE ---
PT IS SITTING UP ON STRETCHER WITH IVF AND MEDICATIONS INFUSING ORDERED WITHOUT DIFFICULTY. PT IS AWAITING PLACEMENT AT THIS TIME. CALL PLACED TO [facility] ACCESS LINE. WILL CONTINUE TO MONITOR. VSS.
--- NOTE | 2023-05-29 19:13 | PC.NURSE ---
185- PT HAS BEEN ACCEPTED AT [facility] BY DR BOJORQUEZ. TRIAGE INFORMATION GIVEN TO ISAIAS ZAZUETA AT [facility] ACCESS LINE. CARLITA REPORTS BED WILL MOST LIKELY NOT BE AVAILABLE UNTIL TOMORROW. ERP AND PT UPDATED. PT TO BE PLACED ON A HOSPITAL BED FOR COMFORT. VSS PER MONITOR. PT AMBULATED TO RR WITHOUT DIFFICULTY. FOOD PROVIDED TO PT REQUESTED PER ERP. 1909- REPORT TO ISAIAS JACQUES, PT HAS RETURNED TO EXAM ROOM WITHOUT DIFFICULTY. PT IS AWARE OF PLAN OF CARE.
[2023-05-29 19:16] LABS: Reflex Lactic Acid Yes or No Add Lactic
[2023-05-29] MEDS: SODIUM CHLORIDE 0.9% IV 1,000 ML 250 ML IV CONT (19:22)
[2023-05-29 19:35] LABS: Appearance Urine Clear (Clear); Bilirubin Urine 1+ (Negative); Blood Urine Negative (Negative); Color Urine Yellow (Yellow); Glucose Urine UA Negative (Negative); Ketones Urine Trace (Negative); Leukocyte Esterase Ur 1+ LEU/UL (Negative); Nitrate Urine Negative (Negative); Protein Urine Trace (Negative); Urobilinogen Urine 0.2 mg/dL (0.2-1.0)
--- NOTE | 2023-05-29 19:36 | PC.NURSE ---
patient report received from ISAIAS Higgins for continuation of care for shift manager. plan for patient to be boarding all night for bed at accepting facility, [facility]. richie yap, see MAR. patient reports her headache is feeling improved and urine specimen provided by patient and taken to lab by theatre program director, who was in to draw repeat Lactate level. patient given warm turkey sandwich per request and water. patient ate cottage cheese as well as jello and moved to hospital bed in ED 3 for comfort. patient provided with warm blanket and call light within reach. patient aware of plan for transfer to [facility], pending room assignment. aware she will plan to be here likely all night with plan for repeat blood work around 0630 AM. understanding verbalized and patient agreeable.
[2023-05-29 19:41] LABS: Add Urine Microscopic? YES; Bacteria Urine Trace /hpf; RBC Urine 0-2 /hpf (0-2); Squamous Epithelial Cell Urine Rare /hpf (Few)
[2023-05-29 19:51] LABS: Lactic Acid 0.7 mmol/L (0.4-2.0)
--- NOTE | 2023-05-29 20:01 | PC.NURSE ---
patient update provided including provider request for labs to be redrawn at 2200 this evening instead of waiting until 0630 AM tomorrow. patient agreeable and verbalized understanding. NAD. denies further needs. RN monitoring. call light within reach.
--- NOTE | 2023-05-29 21:20 | PC.NURSE ---
patient resting on hospital bed. update provided. patient denies needs. nad. RN monitoring. call light within reach.
--- NOTE | 2023-05-29 22:07 | PC.NURSE ---
electric refrigerator servicer at bedside for lab draw. vss. RN monitoring. patient remains awaiting bed at transfer facility. call light within reach. patient denies further needs.
[2023-05-29 22:13] LABS: Basophils Absolute Auto 0.02 K/mm3 (0.00-0.10); Basophils Percent Auto 0.5 % (0.0-1.0); Eosinophils Absolute Auto 0.03 K/mm3 (0.02-0.50); Eosinophils Percent Auto 0.7 % (1.0-6.0); Hemoglobin 11.5 g/dL (12.0-15.0); Lymphocytes Absolute Auto 1.65 K/mm3 (1.10-4.50); Lymphocytes Percent Auto 38.5 % (18.0-42.0); Mean Corpuscular HGB Conc 33.8 g/dL (32-36); Mean Corpuscular Hemoglobin 32.3 pg (27.0-31.0); Mean Corpuscular Volume 95.5 fL (78.0-102.0); Mean Platelet Volume 9.7 fl (9.2-11.8); Monocytes Absolute Auto 0.42 K/mm3 (0.10-0.90); Monocytes Percent Auto 9.8 % (2.0-11.0); Neutrophils Absolute Auto 2.17 K/mm3 (1.70-7.20); Neutrophils Percent Auto 50.5 % (50.0-70.0); Platelet Count Result 162 K/mm3 (150-420); Red Blood Count 3.56 M/mm3 (4.20-5.40); White Blood Count 4.3 K/mm3 (4.8-10.8)
[2023-05-29 22:31] LABS: Alanine Aminotransferase 263 U/L (14-59); Albumin Level 2.6 g/dL (3.4-5.0); Alkaline Phosphatase 139 U/L (46-116); Anion Gap 9 mmol/L (4-12); Aspartate Amino Transferase 282 U/L (15-37); Bilirubin,Total 1.6 mg/dL (0.00-1.00); Blood Urea Nitrogen 33 mg/dL (7-18); Calcium 7.4 mg/dL (8.5-10.1); Carbon Dioxide 25 mmol/L (21-32); Chloride 106 mmol/L (98-108); Estimated CRCL calculation 13 ml/min; Estimated Glomerular Filt Rate 10; Glucose 164 mg/dL (70-99); Osmolality Calculated 301 mOsm/kg (285-295); Phosphorus 2.2 mg/dL (2.6-4.7); Potassium 3.3 mmol/L (3.5-5.1); Sodium 140 mmol/L (136-145); Total Protein 4.9 g/dL (6.4-8.2)
--- NOTE | 2023-05-29 23:24 | PC.NURSE ---
patient medicated per order, see MAR. patient awake and alert with VSS, requesting her nighttime medications, ERP aware and verbal orders obtained. patient denies further needs, given cottage cheese per windows migration technician. patient updated on lab values and triage information provided to Agnes with [facility] access center for bed placement update. call light within reach.
[2023-05-29] MEDS: traZODone HCL 50 MG TABLET 100 MG PO (23:41)
[2023-05-29] MEDS: LORazepam (*CRX) 0.5 MG TABLET PO (23:42)
--- NOTE | 2023-05-29 23:46 | PC.NURSE ---
patient medicated, see JULISSA. RN monitoring. IVF infusing.
[2023-05-30] VITALS (42 sets, daily range): BP systolic 107–157; BP diastolic 69–95; PULSE 66–105; RESP 11–29; TEMP 36.8–36.9; O2SAT 90–96
--- NOTE | 2023-05-30 00:26 | PC.NURSE ---
PATIENT RESTING ON HOSPITAL BED. RN MONITORING.
--- NOTE | 2023-05-30 01:19 | PC.NURSE ---
PATIENT RESTING ON HOSPITAL BED. VSS. RN MONITORING.
--- NOTE | 2023-05-30 02:42 | PC.NURSE ---
PATIENT ASLEEP. IVF INFUSING. VSS. RN MONITORING. CALL LIGHT WITHIN REACH.
--- NOTE | 2023-05-30 03:22 | PC.NURSE ---
PATIENT ASLEEP ON HOSPITAL BED. RN MONITORING.
--- NOTE | 2023-05-30 04:26 | PC.NURSE ---
PATIENT RESTING. AWAITING BED ASSIGNMENT AT TRANSFER FACILITY. CALL LIGHT WITHIN REACH.
--- NOTE | 2023-05-30 05:19 | PC.NURSE ---
PATIENT RESTING ON STRETCHER. RN MONITORING. VSS.
--- NOTE | 2023-05-30 06:37 | PC.NURSE ---
PATIENT AWAKE AT THIS TIME AND AMBULATORY TO BATHROOM WITHOUT DIFFICULTY. PATIENT DENIES NEEDS. UPDATE PROVIDED. CALL LIGHT WITHIN REACH.
--- NOTE | 2023-05-30 06:56 | PC.NURSE ---
patient reconnected to monitors, vss. Patient denies needs. awake and alert without distress. patient daughter at bedside briefly. patient report given to ISAIAS Higgins for continuation of care for day shift. patient remains awaiting bed at transfer facility.
[2023-05-30 07:33] LABS: Alanine Aminotransferase 237 U/L (14-59); Albumin Level 2.5 g/dL (3.4-5.0); Alkaline Phosphatase 129 U/L (46-116); Anion Gap 10 mmol/L (4-12); Aspartate Amino Transferase 236 U/L (15-37); Bilirubin,Total 0.8 mg/dL (0.00-1.00); Blood Urea Nitrogen 31 mg/dL (7-18); Calcium 7.3 mg/dL (8.5-10.1); Carbon Dioxide 23 mmol/L (21-32); Chloride 108 mmol/L (98-108); Estimated CRCL calculation 16 ml/min; Estimated Glomerular Filt Rate 12; Glucose 151 mg/dL (70-99); Osmolality Calculated 301 mOsm/kg (285-295); Potassium 3.1 mmol/L (3.5-5.1); Sodium 141 mmol/L (136-145); Total Protein 5.5 g/dL (6.4-8.2)
--- NOTE | 2023-05-30 07:34 | PC.NURSE ---
pt is resting on stretcher, awaiting lab results and room assignment at [facility]. Daughter had came this am and has left. pt denies any needs or complaints. will continue to monitor.
--- NOTE | 2023-05-30 08:37 | PC.NURSE ---
pt is sitting up eating breakfast at this time. pt has returned from ultrasound and to without difficulty. pt is more steady today than yesterday. pt reports she is feeling better. vss per monitor. will continue to monitor.
--- NOTE | 2023-05-30 10:04 | PC.NURSE ---
PT IS LYING ON BED WATCHING TV AT THIS TIME. PT CONTINUE TO AWAIT ROOM ASSIGNMENT FOR [facility]. [facility] CALLED FOR STATUS UPDATE AND REPORTS NO BED AVAILABLE AT THIS TIME. PT IS UPDATED ON STATUS, AND PHONE INFORMATICS SPECIALIST PROVIDED. PT HAS JUICE AND WATER AT THIS TIME. PT DENIES ANY NEEDS OR COMPLAINTS. WILL CONTINUE TO MONITOR.
[2023-05-30] MEDS: CITALOPRAM HYDROBROMIDE 20 MG TABLET 40 MG PO (10:26)
[2023-05-30] MEDS: LORazepam (*CRX) 0.5 MG TABLET PO ×2 (10:26→17:13)
[2023-05-30 10:57] LABS: Creatine Kinase 80 U/L (26-192)
[2023-05-30] MEDS: ACETAMINOPHEN 500 MG TABLET 1000 MG PO (13:46)
--- NOTE | 2023-05-30 14:13 | PC.NURSE ---
PT WAS REPORTING A HEADACHE. MEDICATION ADMINISTERED ORDERED WITHOUT DIFFICULTY. PT ALSO REQUESTS ICE CREAM, SOME WAS PROVIDED. PT DENIES ANY OTHER NEEDS OR COMPLAINTS. PT HAS BEEN AMBULATING TO WITH STEADY GAIT AND NO DIFFICULTY NOTED. WILL CONTINUE TO MONITOR.
--- NOTE | 2023-05-30 16:59 | PC.NURSE ---
PT UPDATED ON BED STATUS. PT WAS AMBULATORY DOWN BACK WARD, REPORTS SHE NEEDED TO GET OUT OF HER ROOM. PT HAS STEADY GAIT NOTED, STATES SHE IS FEELING MUCH BETTER. SPOKE WITH NENITA AT [facility], WHO REPORTS SHE IS HOPEFUL THAT PT WILL GET A BED TONIGHT, HOWEVER NONE AVAILABLE AT THIS TIME. VSS PER MONITOR. WILL CONTINUE TO MONITOR.
--- NOTE | 2023-05-30 17:16 | PC.NURSE ---
PER ERP, NO BP MEDS TO BE ADMINISTERED AT THIS TIME DUE TO HYPOTENSION UPON ARRIVAL, AND VSS AT THIS TIME. PT DENIES ANY NEEDS OR COMPLAINTS, PT COMPLETED DINNER TRAY. WILL CONTINUE TO MONITOR.
[2023-05-30 17:50] LABS: Anion Gap 8 mmol/L (4-12); Blood Urea Nitrogen 26 mg/dL (7-18); Calcium 7.9 mg/dL (8.5-10.1); Carbon Dioxide 29 mmol/L (21-32); Chloride 105 mmol/L (98-108); Estimated CRCL calculation 24 ml/min; Estimated Glomerular Filt Rate 21; Glucose 107 mg/dL (70-99); Osmolality Calculated 298 mOsm/kg (285-295); Potassium 3.4 mmol/L (3.5-5.1); Sodium 142 mmol/L (136-145)
--- NOTE | 2023-05-30 18:11 | PC.NURSE ---
ERP HAS SPOKEN WITH PT AND HAVE DECIDED PT IS STABLE TO DC HOME, TO HAVE OUTPT LABS AND FOLLOW WITH PMD TOMORROW. PT IS AWARE SHE MAY RETURN TO ER AT ANYTIME WITH ISSUES. PT IS CURRENTLY DENYING ANY COMPLAINTS. VSS, GAIT STEADY. TO DC PT HOME.
--- NOTE | 2023-06-04 12:34 | PC.NURSE ---
blood culture reviewed, no growth in 5 days.
== END 2023-05-30 18:18 | disposition home or self-care (01) ==
PROVIDERS: Emergency Medicine; Emergency Provider Student in an Organized Health Care Education/Training Program; PCP Internal Medicine
DX: N17.9 Acute kidney failure, unspecified (principal); E83.42 Hypomagnesemia; E87.6 Hypokalemia; E83.51 Hypocalcemia; E83.39 Other disorders of phosphorus metabolism; T50.915A Adverse effect of multiple unspecified drugs, medicaments and biological substances, initial encounter; F41.9 Anxiety disorder, unspecified; I10 Essential (primary) hypertension; Z20.822 Contact with and (suspected) exposure to COVID-19
CPT/HCPCS: 36415; 71045; 74176; 76775; 80048; 80053; 81001; 82550; 83605; 83735; 84100; 84443; 85025; 87040; 87086; 87637; 93005; 96361; 96365; 96367; 96368; 99284; A9270; J0613; J0696; J3475; J7030

== ENCOUNTER 2023-05-31 09:04 | Outpatient (CLI) | payer OTHER, SELFPAY ==
[2023-05-31 09:20] LABS: Basophils Absolute Auto 0.03 K/mm3 (0.00-0.10); Basophils Percent Auto 0.6 % (0.0-1.0); Eosinophils Absolute Auto 0.11 K/mm3 (0.02-0.50); Eosinophils Percent Auto 2.2 % (1.0-6.0); Hemoglobin 12.8 g/dL (12.0-15.0); Immature Granulocyte Absolute 0.01 K/mm3 (0.00-0.00); Immature Granulocyte Percent A 0.2 % (0.0-0.0); Lymphocytes Absolute Auto 2.39 K/mm3 (1.10-4.50); Lymphocytes Percent Auto 47.6 % (18.0-42.0); Mean Corpuscular HGB Conc 33.7 g/dL (32-36); Mean Corpuscular Hemoglobin 32.2 pg (27.0-31.0); Mean Corpuscular Volume 95.5 fL (78.0-102.0); Mean Platelet Volume 9.8 fl (9.2-11.8); Monocytes Absolute Auto 0.46 K/mm3 (0.10-0.90); Monocytes Percent Auto 9.2 % (2.0-11.0); Neutrophils Absolute Auto 2.02 K/mm3 (1.70-7.20); Neutrophils Percent Auto 40.2 % (50.0-70.0); Platelet Count Result 148 K/mm3 (150-420); Red Blood Count 3.98 M/mm3 (4.20-5.40); Red Cell Distribution Width 14.2 % (11.6-14.4)
[2023-05-31 10:08] LABS: Alanine Aminotransferase 199 U/L (14-59); Albumin Level 3.1 g/dL (3.4-5.0); Alkaline Phosphatase 143 U/L (46-116); Anion Gap 11 mmol/L (4-12); Aspartate Amino Transferase 134 U/L (15-37); Bilirubin,Total 0.8 mg/dL (0.00-1.00); Blood Urea Nitrogen 23 mg/dL (7-18); Calcium 8.1 mg/dL (8.5-10.1); Carbon Dioxide 25 mmol/L (21-32); Chloride 106 mmol/L (98-108); Estimated Glomerular Filt Rate 43; Glucose 151 mg/dL (70-99); Osmolality Calculated 300 mOsm/kg (285-295); Potassium 3.5 mmol/L (3.5-5.1); Sodium 142 mmol/L (136-145); Total Protein 5.9 g/dL (6.4-8.2)
== END 2023-05-31 09:05 | disposition home or self-care (01) ==
LOC: CHSLAB 09:06
PROVIDERS: PCP Internal Medicine; Visit Provider Student in an Organized Health Care Education/Training Program
DX: I10 Essential (primary) hypertension (principal)
CPT/HCPCS: 36415; 80053; 85025

== ENCOUNTER 2023-05-31 10:23 | Emergency (ER) | payer OTHER, SELFPAY ==
[2023-05-31] VITALS (26 sets, daily range): BP systolic 112–158; BP diastolic 64–108; PULSE 95–141; RESP 11–29; TEMP 36.9; O2SAT 91–96
--- NOTE | 2023-05-31 10:33 | ECG_ITS ---
SEE SCANNED COPY FOR CONFIRMED REPORT MTDD
--- NOTE | 2023-05-31 11:02 | ED.ARRPALP ---
HPI - Arrhythmia/Palpitations General Chief Complaint: Arrhythmia/Palpitations Stated Complaint: tachycardia Time Seen by Provider: 05/31/23 10:27 Source: patient Mode of arrival: ambulatory Limitations: no limitations History of Present Illness HPI narrative: 62-year-old female, smoker, alcohol use with hypertension, depression, right rotator cuff tendinitis, RSV, has been having labile hypertension requiring frequent blood pressure medication changes. She has had a history of paroxysmal tachycardia and has had Holter monitoring. She had an echo which revealed normal ejection fraction. she has had a negative stress test many years ago. She has had elevated LFTs. She has labile hypertension and has had episodes of hypotension during her blood pressure medication changes. She presented 2 days ago on 05/29/2023 for blood work which revealed acute renal failure with hypokalemia. Patient was also noted elevated LFTs. The patient received IV fluids with resolution of her renal failure. Today the patient developed -- headache -- lightheadedness and dizziness -- Anxiety She went to her primary care physician's office. An EKG done at that time revealed SVT, AFib with rapid ventricular rate. The patient was transferred to the ER for further management. Patient denied any chest pain or shortness breath. MD complaint: rapid heart beat and palpitations Onset (ago): day(s) Duration: intermittent Severity: severe Context: occurred during rest Associated symptoms: denies other symptoms Related Data Home Medications Medication Instructions Recorded Confirmed citalopram 20 mg tablet (Celexa) 40 mg PO DAILY 02/25/19 05/31/23 lorazepam 0.5 mg tablet (Ativan) 0.5 mg PO PRN PRN Anxiety 12/14/22 05/31/23 losartan 25 mg tablet (Cozaar) 25 mg PO BID 12/14/22 05/31/23 atorvastatin 40 mg tablet 40 mg PO DAILY 05/29/23 05/31/23 metoprolol succinate 25 mg 50 mg PO DAILY 05/29/23 05/31/23 tablet,extended release 24 hr trazodone 100 mg tablet 100 mg PO HS 05/29/23 05/31/23 carvedilol 12.5 mg tablet 12.5 mg PO BID 05/31/23 05/31/23 indapamide 1.25 mg tablet 1.25 mg PO DAILY 05/31/23 05/31/23 potassium chloride 10 mEq 10 meq PO DAILY 05/31/23 05/31/23 capsule,extended release Allergies Allergy/AdvReac Type Severity Reaction Status Date / Time No Known Allergies Allergy Verified 05/31/23 11:18 Review of Systems Review of Systems: All systems reviewed & are unremarkable except as noted in HPI and below Constitutional: Constitutional: Reports as per HPI, Reports no additional constitutional complaints, Reports fatigue and Reports weakness Eyes: Eyes: Reports as per HPI and Reports no additional eye complaints ENT: Reports system reviewed and no additional complaints, except as documented and Reports as per HPI Cardiovascular: Cardiovascular: Reports as per HPI and Reports no additional cardiovascular complaints Respiratory: Respiratory: Reports as per HPI and Reports no additional respiratory complaints Gastrointestinal: Gastrointestinal: Reports as per HPI and Reports no additional gastrointestinal complaints Genitourinary: Genitourinary: Reports no additional female genitourinary complaints and Reports as per HPI Musculoskeletal: Musculoskeletal: Reports no additional musculoskeletal complaints and Reports as per HPI Integumentary/Breasts: Skin/Breast: Reports system reviewed and no additional complaints, except as docu and Reports as per HPI Neurologic: Reports system reviewed and no additional complaints, except as documented and Reports as per HPI Psychiatric: Psychiatric: Reports no additional psychiatric complaints, Reports as per HPI, Reports anxiety and Reports depression Endocrine: Endocrine: Reports no additional endocrine complaints and Reports as per HPI Hematologic/Lymphatic: Hematologic/Lymphatic: Reports no additional hematologic/lymphatic complaints PMFSH Past Medical History Medical History (Reviewed 0
[2023-05-31 11:36] LABS: NT Pro B Type Natriuretic Pept 1798 pg/mL (0-125)
[2023-05-31 11:37] LABS: Troponin I 79.2 ng/L (0.00-60.4)
[2023-05-31] MEDS: ACETAMINOPHEN 325 MG TABLET 650 MG PO (11:39)
[2023-05-31] MEDS: LORazepam (*CRX) 0.5 MG TABLET PO (13:05)
[2023-05-31] MEDS: CITALOPRAM HYDROBROMIDE 20 MG TABLET 40 MG PO (13:25)
== END 2023-05-31 18:07 | disposition short-term general hospital (02) ==
PROVIDERS: Emergency Provider Internal Medicine Critical Care Medicine; PCP Internal Medicine
DX: I48.0 Paroxysmal atrial fibrillation (principal); I10 Essential (primary) hypertension; F41.9 Anxiety disorder, unspecified
CPT/HCPCS: 83880; 84484; 93005; 99285; A9270

== ENCOUNTER 2023-06-04 13:20 | Emergency (ER) | payer OTHER, SELFPAY ==
[2023-06-04] VITALS (21 sets, daily range): BP systolic 126–167; BP diastolic 73–109; PULSE 111–144; RESP 14–24; TEMP 37; O2SAT 88–94
--- NOTE | 2023-06-04 13:37 | ED.GENADULT ---
HPI - General Adult General Chief complaint: Unspecified Stated complaint: nosebleed Time Seen by Provider: 06/04/23 13:50 History of Present Illness HPI narrative: The patient is a 62-year-old woman with history of diabetes, hypertension, depression, hyperlipidemia, anxiety. She has a complex recent past medical history. She was seen on 05/29/2023, 6 days ago, due to acute kidney injury with BUN of 33 creatinine 4.6 GFR 10 , potassium 3.3, which was supplemented. Phosphorus was also supplemented since it was 2.2.. She underwent IV hydration and stayed in the ER till the next day when on 05/30/2023, she had improvement of her BUN to 26 and the creatinine to 2.4. She was due to go to [facility] but there was no bed available so she was discharged home with follow-up. She went to her primary care provider the next morning. An EKG in the office revealed new onset atrial fibrillation, paroxysmal, with rapid ventricular response. She was referred back to the ER on 05/31/2023. BUN at that time it improved to 23 and a creatinine of 1.3. Potassium was 3.5. The LFTs were elevated but they had been elevated previously, due to fatty liver. Troponin was elevated 79, high sensitivity, BNP elevated 1798. She was transported to [facility] where she was admitted. She discussed discharged from there yesterday on Xarelto once daily. Last dose taken was yesterday. Of note, in the emergency room, the EKG was sinus tachycardia not atrial fibrillation. For her rhythm control: she is NOT on amiodarone or carvedilol. She is on TOPROL XL 50mg PO QD, but has not taken a dose today as she has not been able to go to the pharmacy to fill the Rx. just prior to discharge yesterday from the hospital, she blew her nose and had some bleeding from the right nostril. She did not think much of it. The bleeding however has persisted since yesterday and has continued today. She is anxious and tearful. She states that she also has a headache and has had tarry stools from swallowing her epistaxis output. She can feel her heart rate beating fast. 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 Related Data Home Medications Medication Instructions Recorded Confirmed citalopram 20 mg tablet (Celexa) 40 mg PO DAILY 02/25/19 05/31/23 lorazepam 0.5 mg tablet (Ativan) 0.5 mg PO PRN PRN Anxiety 12/14/22 05/31/23 losartan 25 mg tablet (Cozaar) 25 mg PO BID 12/14/22 05/31/23 atorvastatin 40 mg tablet 40 mg PO DAILY 05/29/23 05/31/23 metoprolol succinate 25 mg 50 mg PO DAILY 05/29/23 05/31/23 tablet,extended release 24 hr trazodone 100 mg tablet 100 mg PO HS 05/29/23 05/31/23 carvedilol 12.5 mg tablet 12.5 mg PO BID 05/31/23 05/31/23 indapamide 1.25 mg tablet 1.25 mg PO DAILY 05/31/23 05/31/23 potassium chloride 10 mEq 10 meq PO DAILY 05/31/23 05/31/23 capsule,extended release Allergies Allergy/AdvReac Type Severity Reaction Status Date / Time No Known Allergies Allergy Verified 05/31/23 11:18 Review of Systems Review of Systems: All systems reviewed & are unremarkable except as noted in HPI and below Constitutional: Constitutional: Denies chills, Denies excessive sweating, Denies fatigue, Denies fever(s), Reports headache(s) and Denies weakness Eyes: Eyes: Denies change in vision and Denies photophobia ENT: Denies dysphagia, Denies dizziness, Reports headache(s), Denies lip swelling, Denies nasal congestion, Denies sore throat and Denies tongue swelling Comments: epistaxis right nares Cardiovascular: Cardiovascular: Denies chest pain, Denies syncope, Reports rapid heart rate and Denies dyspnea Respiratory: Respiratory: Denies cough, Denies dyspnea and Denies wheezing Gastrointestinal: Gastrointestinal: Denies abdominal pain, Denies constipation, Denies dysphagia, Denies diarrhea, Denies nausea and Denies vomiting Genitourinary: Genitourinary: Denies hematuria, Denies urinary frequency, Denies dysuria and Denies urinary urgency Musculoskel
--- NOTE | 2023-06-04 13:45 | ECG_ITS ---
SEE SCANNED COPY FOR CONFIRMED REPORT MTDD
[2023-06-04] MEDS: SODIUM CHLORIDE 0.9% IV 1,000 ML 999 ML IV CONT (14:35)
[2023-06-04] MEDS: METOPROLOL TARTRATE INJ 5 MG/5 ML VIAL IV PUSH ×3 (14:36→17:34)
[2023-06-04] MEDS: LORazepam INJ (*CRX) 2 MG/ML VIAL 0.5 MG IV PUSH (14:36)
[2023-06-04 15:19] LABS: Basophils Absolute Auto 0.01 K/mm3 (0.00-0.10); Basophils Percent Auto 0.1 % (0.0-1.0); Eosinophils Absolute Auto 0.06 K/mm3 (0.02-0.50); Eosinophils Percent Auto 0.8 % (1.0-6.0); Hematocrit 29.7 % (35.0-49.0); Hemoglobin 9.5 g/dL (12.0-15.0); Immature Granulocyte Absolute 0.04 K/mm3 (0.00-0.00); Immature Granulocyte Percent A 0.5 % (0.0-0.0); Lymphocytes Percent Auto 16.1 % (18.0-42.0); Mean Corpuscular Hemoglobin 32.5 pg (27.0-31.0); Mean Corpuscular Volume 101.7 fL (78.0-102.0); Mean Platelet Volume 10.1 fl (9.2-11.8); Monocytes Absolute Auto 0.77 K/mm3 (0.10-0.90); Monocytes Percent Auto 10.3 % (2.0-11.0); Neutrophils Absolute Auto 5.36 K/mm3 (1.70-7.20); Neutrophils Percent Auto 72.2 % (50.0-70.0); Platelet Count Result 147 K/mm3 (150-420); Red Blood Count 2.92 M/mm3 (4.20-5.40); Red Cell Distribution Width 14.5 % (11.6-14.4); White Blood Count 7.4 K/mm3 (4.8-10.8)
[2023-06-04 15:38] LABS: Alanine Aminotransferase 74 U/L (14-59); Alkaline Phosphatase 63 U/L (46-116); Anion Gap 7 mmol/L (4-12); Aspartate Amino Transferase 26 U/L (15-37); Bilirubin,Total 0.4 mg/dL (0.00-1.00); Blood Urea Nitrogen 17 mg/dL (7-18); Calcium 7.9 mg/dL (8.5-10.1); Carbon Dioxide 31 mmol/L (21-32); Chloride 104 mmol/L (98-108); Estimated CRCL calculation 64 ml/min; Estimated Glomerular Filt Rate > 60; Glucose 271 mg/dL (70-99); NT Pro B Type Natriuretic Pept 213 pg/mL (0-125); Osmolality Calculated 305 mOsm/kg (285-295); Potassium 3.7 mmol/L (3.5-5.1); Sodium 142 mmol/L (136-145); Total Protein 5.8 g/dL (6.4-8.2)
[2023-06-04 15:39] LABS: Lactic Acid Reflex 1.3 mmol/L (0.4-2.0)
--- NOTE | 2023-06-04 17:39 | PC.NURSE ---
pt was able to take a nap. ambulated to bathroom. call araiza in reach.
[2023-06-04] MEDS: METOPROLOL TARTRATE 50 MG TAB PO (17:59)
[2023-06-04] MEDS: OXYMETAZOLINE HCL 0.05% NAS 15 ML BTL (*BKC) 2 SPRAY NASAL (17:59)
== END 2023-06-04 18:10 | disposition home or self-care (01) ==
PROVIDERS: Emergency Provider Emergency Medicine
DX: R04.0 Epistaxis (principal); R00.0 Tachycardia, unspecified; I10 Essential (primary) hypertension; E11.9 Type 2 diabetes mellitus without complications; E78.5 Hyperlipidemia, unspecified
CPT/HCPCS: 30901; 36415; 80053; 83605; 83880; 84484; 85025; 93005; 96361; 96374; 96375; 96376; 99284; A9270; J2060; J7030

== ENCOUNTER 2023-06-26 13:48 | Outpatient (CLI) | payer OTHER, SELFPAY ==
--- NOTE | ~2023-06-26 | XR_ITS ---
EXAM: XR hip LT min 2V DATE: 06/26/2023 14:12 HISTORY: LEFT HIP PAIN FOR PASS 3WKS . COMPARISON: None available. FINDINGS: Normal mineralization. No fracture or dislocation. No lytic or blastic lesion. Mild left h ip joint space narrowing and subchondral sclerosis. Mild scattered enthesopathy. No erosion or perios teal change. Soft tissues within normal limits. IMPRESSION: Mild left hip osteoarthritis. Reviewed, dictated and finalized at location K.
== END 2023-06-26 13:49 | disposition home or self-care (01) ==
LOC: CHSIMG 13:49
PROVIDERS: PCP Internal Medicine; Visit Provider Internal Medicine
DX: M25.552 Pain in left hip (principal); M16.12 Unilateral primary osteoarthritis, left hip
CPT/HCPCS: 73502

== ENCOUNTER 2023-07-17 08:15 | Outpatient (CLI) | payer OTHER, SELFPAY ==
--- NOTE | ~2023-07-17 | MR_ITS ---
MRI of the left hip Clinical history: Pain Technique: Coronal T1-weighted, T2-weighted, and proton-density fat-sat images, and axial T1-weighted and proton-density fat-sat images were acquired through the pelvis. Coronal T2-weighted images and c oronal, axial, and sagittal proton-density fat-sat images were acquired through the left hip. Findings: There is no fracture or avascular necrosis of either hip. Bone marrow signals in the proxim al femora and pelvic bones are unremarkable. There is probable mild to moderate chondromalacia diffus obed involving both hip joints, left worse than right. No significant joint effusion. There is degener ative tearing of the superior to superolateral acetabular labrum on the left side. There is mild edematous change at the insertion of the left gluteus minimus and medius muscles at the greater trochanter, indicative of mild to moderate distal tendinosis. Musculature about the pelvis i s otherwise intact. No muscle atrophy evident. No tendon tear frankly evident. No bursitis or other f luid collection evident. IMPRESSION: Mild to moderate tendinosis of the insertion of the left gluteus minimus and medius muscles. Degenerative tearing of the superior to superolateral left acetabular labrum. Mild to moderate chondromalacia of both hip joints, left worse than right. Reviewed, dictated and finalized at location . IMPRESSION: Mild to moderate tendinosis of the insertion of the left gluteus minimus and me dius muscles. Degenerative tearing of the superior to superolateral left acetabular labrum. Mild to moderate chondromalacia of both hip joints, left worse than right.
== END 2023-07-17 08:16 ==
LOC: GOSHIMG 08:17
PROVIDERS: PCP Internal Medicine; Visit Provider Internal Medicine
DX: M76.02 Gluteal tendinitis, left hip (principal); S43.432A Superior glenoid labrum lesion of left shoulder, initial encounter; M94.252 Chondromalacia, left hip; M94.251 Chondromalacia, right hip; X58.XXXA Exposure to other specified factors, initial encounter
CPT/HCPCS: 73721

== ENCOUNTER 2023-07-19 11:28 | Emergency (ER) | payer OTHER, SELFPAY ==
[2023-07-19] VITALS (27 sets, daily range): BP systolic 131–155; BP diastolic 77–102; PULSE 88–157; RESP 13–27; TEMP 36.8–36.9; O2SAT 90–97
--- NOTE | ~2023-07-19 | XR_ITS ---
EXAMINATION: XR chest 1V portable DATE: 07/19/2023 12:16 INDICATION: Palpitations. TECHNIQUE: A single frontal view of the chest was obtained. COMPARISON: Chest single view 05/29/2023 FINDINGS: There is chronic mild elevation of left hemidiaphragm. No pleural effusion or pneumothorax. The heart size is normal. There is an old healed fracture of right seventh rib. IMPRESSION: 1. No acute cardiopulmonary disease. Reviewed, dictated and finalized at location A.
--- NOTE | 2023-07-19 12:05 | ECG_ITS ---
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 Measurements Intervals [place] Rate: 99 P: 0 RI: 0 QRS: 5 QRSD: 86 T: 68 QT: 377 QTc: 484 Interpretive Statements SINUS RHYTHM WITH PACS LOW QRS VOLTAGE IN PRECORDIAL LEADS [QRS DEFLECTION < 1.0 mV IN CHEST LEADS] No previous ECG available for comparison Electronically Signed On 07-19-2023 13:48:06 CDT by Rajiv Key M.D.
[2023-07-19] MEDS: SODIUM CHLORIDE 0.9% IV 1,000 ML 999 ML IV CONT (12:13)
[2023-07-19] MEDS: METOPROLOL TARTRATE INJ 5 MG/5 ML VIAL IV PUSH ×2 (12:14→13:08)
[2023-07-19] MEDS: diazePAM INJ (*CRX) 10 MG/2 ML SYRINGE 5 MG IV PUSH (12:17)
[2023-07-19 12:18] LABS: Basophils Absolute Auto 0.04 K/mm3 (0.00-0.10); Basophils Percent Auto 0.8 % (0.0-1.0); Eosinophils Absolute Auto 0.01 K/mm3 (0.02-0.50); Eosinophils Percent Auto 0.2 % (1.0-6.0); Hematocrit 39.2 % (35.0-49.0); Hemoglobin 13.5 g/dL (12.0-15.0); Immature Granulocyte Absolute 0.01 K/mm3 (0.00-0.00); Immature Granulocyte Percent A 0.2 % (0.0-0.0); Lymphocytes Absolute Auto 2.03 K/mm3 (1.10-4.50); Lymphocytes Percent Auto 40.4 % (18.0-42.0); Mean Corpuscular HGB Conc 34.4 g/dL (32-36); Mean Corpuscular Hemoglobin 31.5 pg (27.0-31.0); Mean Corpuscular Volume 91.4 fL (78.0-102.0); Mean Platelet Volume 8.9 fl (9.2-11.8); Neutrophils Absolute Auto 2.53 K/mm3 (1.70-7.20); Neutrophils Percent Auto 50.4 % (50.0-70.0); Platelet Count Result 246 K/mm3 (150-420); Red Blood Count 4.29 M/mm3 (4.20-5.40); Red Cell Distribution Width 12.6 % (11.6-14.4)
[2023-07-19 12:41] LABS: Thyroid Stimulating Hormone Reflex 1.96 u/IU/mL (0.36-3.74)
[2023-07-19 12:45] LABS: Alanine Aminotransferase 108 U/L (14-59); Albumin Level 3.6 g/dL (3.4-5.0); Alkaline Phosphatase 66 U/L (46-116); Anion Gap 14 mmol/L (4-12); Aspartate Amino Transferase 95 U/L (15-37); Bilirubin,Total 0.6 mg/dL (0.00-1.00); Blood Urea Nitrogen 22 mg/dL (7-18); Calcium 8.8 mg/dL (8.5-10.1); Carbon Dioxide 25 mmol/L (21-32); Chloride 101 mmol/L (98-108); Estimated CRCL calculation 63 ml/min; Estimated Glomerular Filt Rate > 60; Ethanol 45 mg/dL (0-6); Glucose 119 mg/dL (70-99); Lipase 18 U/L (16-77); Magnesium 1.6 mg/dL (1.8-2.4); NT Pro B Type Natriuretic Pept 138 pg/mL (0-125); Osmolality Calculated 294 mOsm/kg (285-295); Potassium 3.8 mmol/L (3.5-5.1); Sodium 140 mmol/L (136-145); Total Protein 6.8 g/dL (6.4-8.2)
[2023-07-19] MEDS: METOPROLOL SUCCINATE EXT REL 25 MG TABCR PO (13:08)
[2023-07-19 13:35] LABS: Amphetamine Screen Urine Negative (Negative); Barbiturate Screen Urine Negative (Negative); Benzodiazepines Screen Urine Negative (Negative); Cannabinoid Screen Urine Negative (Negative); Cocaine Screen Urine Negative (Negative); Methadone Screen Urine Negative (Negative); Opiate Screen Urine Negative (Negative); Phencyclidine Screen Urine Negative (Negative)
--- NOTE | 2023-07-19 13:38 | ED.GENADULT ---
HPI - General Adult General Chief complaint: Shortness of Breath/Dyspnea Stated complaint: palpitations Time Seen by Provider: 07/19/23 11:45 History of Present Illness HPI narrative: This is a 63-year-old female with history of AFib on Xarelto, alcohol use disorder and anxiety presenting for palpitations. Patient says that she was drinking throughout much the weekend. When she woke up this morning she developed palpitations and felt like her heart skipping a beat. Patient has been seen multiple times in our emergency department over the last several months for similar complaints. Last time she had AFib with [facility]VR she was transferred to [facility] where she was evaluated by Cardiology. That time she was diagnosed with AFib but also has frequent PACs and skipped beats. She has follow-up with them later this month. At the [facility] the patient feels anxious but is denying chest pain or difficulty breathing. She does continue to have palpitations. No abdominal pain nausea vomiting diarrhea or lower extremity edema. Last drink was last night. Related Data Home Medications Medication Instructions Recorded Confirmed citalopram 20 mg tablet (Celexa) 40 mg PO DAILY 02/25/19 07/19/23 lorazepam 0.5 mg tablet (Ativan) 0.5 mg PO PRN PRN Anxiety 12/14/22 07/19/23 trazodone 100 mg tablet 100 mg PO HS 05/29/23 06/12/23 potassium chloride 10 mEq 10 meq PO DAILY 05/31/23 07/19/23 capsule,extended release amlodipine 5 mg tablet 5 mg PO DAILY 06/12/23 07/19/23 atorvastatin 40 mg tablet 80 mg PO DAILY 06/12/23 07/19/23 losartan 25 mg tablet (Cozaar) 50 mg PO DAILY 06/12/23 07/19/23 metoprolol succinate 25 mg 75 mg PO DAILY 06/12/23 07/19/23 tablet,extended release 24 hr Allergies Allergy/AdvReac Type Severity Reaction Status Date / Time No Known Allergies Allergy Verified 07/19/23 11:41 [facility] Past Medical History Medical History Anxiety Endometriosis HTN (hypertension) Tachycardia Surgical History Surgical History History of [facility] Family History Family History Father , father at age 62 of mesothelioma Mesothelioma FH: carotid endarterectomy Hyperlipidemia Diabetes mellitus Hypertension Heart disease Mother Congestive heart failure Acute myocardial infarction due to [place] Hypertension Heart disease Daughter Depression PTSD (post-traumatic stress disorder) Sibling Grand mal seizure S/P CABG x 5 Diabetes mellitus Sibling Hypertension Diabetes mellitus Sibling Diabetes mellitus Social History Social History Smoking status: Current every day smoker Second hand tobacco smoke exposure: Yes Alcohol intake: current Drinks per week: 1 Substance use: never Substance use type: does not use Do You Feel Safe in your Home?: Yes Lack of Transportation: No Lack of Food: Never True Current Housing: I Have Housing Concerned About Future Housing: No Difficulty Paying Gas/Electric Bills: No Difficulty Paying for Meds: No Currently Unemployed: No Education: Associate Degree Difficulty w/ Childcare or Family Care: No Gender identity (if verbalized by the patient): Female Spiritual care concerns: Yes Agree to blood products: Yes Exam Narrative: APPEARANCE: Patient appears anxious and is and intermittently tearful Head: atraumatic. EYES: EOMI, NOSE: Atraumatic NECK: Trachea midline RESPIRATORY: No increased rate of breathing CTAB CARDIOVASCULAR: irregular, no peripheral edema ABDOMINAL: Non-distended soft nontender MUSCULOSKELETAl: No obvious deformities NEURO: Alert. Moving 4/4 extremities SKIN:: Warm, dry. Normal color PSYCHIATRIC: Normal affect Course Vital Signs Vital signs: Vital Sign
[2023-07-19 14:17] LABS: Troponin I 63.6 ng/L (0.00-60.4)
[2023-07-19] MEDS: MAGNESIUM OXIDE 400 MG TABLET PO (14:21)
== END 2023-07-19 14:30 | disposition home or self-care (01) ==
PROVIDERS: Emergency Provider Emergency Medicine; PCP Internal Medicine
DX: I47.9 Paroxysmal tachycardia, unspecified (principal); F10.10 Alcohol abuse, uncomplicated; Y90.2 Blood alcohol level of 40-59 mg/100 ml; F41.9 Anxiety disorder, unspecified; I48.0 Paroxysmal atrial fibrillation; I10 Essential (primary) hypertension; F17.210 Nicotine dependence, cigarettes, uncomplicated; Z79.01 Long term (current) use of anticoagulants; Z79.899 Other long term (current) drug therapy
CPT/HCPCS: 36415; 71045; 80053; 80307; 83690; 83735; 83880; 84100; 84443; 84484; 85025; 93005; 96361; 96374; 96375; 96376; 99284; A9270; J3360; J7030

== ENCOUNTER 2023-08-11 08:22 | Outpatient (CLI) | payer OTHER, SELFPAY ==
[2023-08-11 08:39] LABS: Basophils Absolute Auto 0.04 K/mm3 (0.00-0.10); Basophils Percent Auto 0.4 % (0.0-1.0); Eosinophils Absolute Auto 0.17 K/mm3 (0.02-0.50); Eosinophils Percent Auto 1.5 % (1.0-6.0); Hematocrit 39.4 % (35.0-49.0); Hemoglobin 13.1 g/dL (12.0-15.0); Immature Granulocyte Absolute 0.02 K/mm3 (0.00-0.00); Immature Granulocyte Percent A 0.2 % (0.0-0.0); Lymphocytes Absolute Auto 2.05 K/mm3 (1.10-4.50); Lymphocytes Percent Auto 18.5 % (18.0-42.0); Mean Corpuscular HGB Conc 33.2 g/dL (32-36); Mean Corpuscular Volume 96.3 fL (78.0-102.0); Mean Platelet Volume 9.7 fl (9.2-11.8); Monocytes Absolute Auto 0.81 K/mm3 (0.10-0.90); Monocytes Percent Auto 7.3 % (2.0-11.0); Neutrophils Percent Auto 72.1 % (50.0-70.0); Platelet Count Result 255 K/mm3 (150-420); Red Blood Count 4.09 M/mm3 (4.20-5.40); Red Cell Distribution Width 12.8 % (11.6-14.4); White Blood Count 11.1 K/mm3 (4.8-10.8)
[2023-08-11 08:40] LABS: Appearance Urine Clear (Clear); Bilirubin Urine Negative (Negative); Blood Urine Negative (Negative); Color Urine Light Yellow (Yellow); Glucose Urine UA Negative (Negative); Ketones Urine Negative (Negative); Leukocyte Esterase Ur Negative (Negative); Nitrate Urine Negative (Negative); Protein Urine Negative (Negative); Specific Grav Ur 1.015 (1.010-1.020); Urobilinogen Urine 0.2 mg/dL (0.2-1.0)
[2023-08-11 08:43] LABS: Add Urine Microscopic? NO
[2023-08-11 09:47] LABS: Alanine Aminotransferase 35 U/L (14-59); Albumin Level 3.5 g/dL (3.4-5.0); Alkaline Phosphatase 69 U/L (46-116); Anion Gap 6 mmol/L (4-12); Aspartate Amino Transferase 20 U/L (15-37); Bilirubin,Total 0.3 mg/dL (0.00-1.00); Blood Urea Nitrogen 12 mg/dL (7-18); Calcium 9.1 mg/dL (8.5-10.1); Carbon Dioxide 30 mmol/L (21-32); Chloride 103 mmol/L (98-108); Cholesterol 111 mg/dL (0-200); Creatine Kinase 66 U/L (26-192); Estimated Glomerular Filt Rate > 60; Free T4 Free Thyroxine 0.88 ng/dL (0.76-1.46); Glucose 147 mg/dL (70-99); HDL Direct 45 mg/dL (40-60); LDL Cholesterol Calculated 44 mg/dL (<130); Magnesium 1.9 mg/dL (1.8-2.4); NT Pro B Type Natriuretic Pept 149 pg/mL (0-125); Osmolality Calculated 290 mOsm/kg (285-295); Sodium 139 mmol/L (136-145); Thyroid Stimulating Hormone 1.78 uIU/mL (0.36-3.74); Total Protein 6.8 g/dL (6.4-8.2); Triglycerides 109 mg/dL (0-150); Vitamin B12 337 pg/mL (193-986)
== END 2023-08-11 08:23 | disposition home or self-care (01) ==
LOC: CHSLAB 08:24
PROVIDERS: PCP Internal Medicine; Visit Provider Internal Medicine
DX: I48.0 Paroxysmal atrial fibrillation (principal); G62.9 Polyneuropathy, unspecified; E11.9 Type 2 diabetes mellitus without complications; E78.2 Mixed hyperlipidemia
CPT/HCPCS: 36415; 80053; 80061; 81003; 82550; 82607; 83036; 83735; 83880; 84439; 84443; 85025

== ENCOUNTER 2024-04-22 09:36 | Outpatient (CLI) | payer OTHER, SELFPAY ==
[2024-04-22 10:02] LABS: Add Urine Microscopic? NO; Appearance Urine Clear (Clear); Basophils Absolute Auto 0.02 K/mm3 (0.00-0.10); Basophils Percent Auto 0.4 % (0.0-1.0); Bilirubin Urine Negative (Negative); Blood Urine Negative (Negative); Color Urine Light Yellow (Yellow); Eosinophils Absolute Auto 0.07 K/mm3 (0.02-0.50); Eosinophils Percent Auto 1.4 % (1.0-6.0); Glucose Urine UA Negative (Negative); Hemoglobin 13.9 g/dL (12.0-15.0); Immature Granulocyte Absolute 0.02 K/mm3 (0.00-0.00); Immature Granulocyte Percent A 0.4 % (0.0-0.0); Ketones Urine Negative (Negative); Leukocyte Esterase Ur Negative (Negative); Lymphocytes Absolute Auto 1.53 K/mm3 (1.10-4.50); Mean Corpuscular HGB Conc 33.1 g/dL (32-36); Mean Corpuscular Hemoglobin 31.3 pg (27.0-31.0); Mean Corpuscular Volume 94.6 fL (78.0-102.0); Mean Platelet Volume 9.5 fl (9.2-11.8); Monocytes Absolute Auto 0.47 K/mm3 (0.10-0.90); Monocytes Percent Auto 9.5 % (2.0-11.0); Neutrophils Absolute Auto 2.83 K/mm3 (1.70-7.20); Neutrophils Percent Auto 57.3 % (50.0-70.0); Nitrate Urine Negative (Negative); Platelet Count Result 299 K/mm3 (150-420); Protein Urine Negative (Negative); Red Blood Count 4.44 M/mm3 (4.20-5.40); Red Cell Distribution Width 13.7 % (11.6-14.4); Specific Grav Ur 1.025 (1.010-1.020); Urobilinogen Urine 0.2 mg/dL (0.2-1.0); White Blood Count 4.9 K/mm3 (4.8-10.8)
[2024-04-22 10:11] LABS: Hemoglobin A1C 6.3 % (<5.7)
[2024-04-22 10:37] LABS: Alanine Aminotransferase 51 U/L (14-59); Albumin Level 3.8 g/dL (3.4-5.0); Alkaline Phosphatase 67 U/L (46-116); Anion Gap 11 mmol/L (4-12); Aspartate Amino Transferase 29 U/L (15-37); Bilirubin,Total 0.4 mg/dL (0.00-1.00); Blood Urea Nitrogen 15 mg/dL (7-18); Calcium 9.2 mg/dL (8.5-10.1); Carbon Dioxide 27 mmol/L (21-32); Chloride 106 mmol/L (98-108); Cholesterol 196 mg/dL (0-200); Creatine Kinase 54 U/L (26-192); Estimated Glomerular Filt Rate > 60; Glucose 151 mg/dL (70-99); HDL Direct 53 mg/dL (40-60); LDL Cholesterol Calculated 111 mg/dL (<130); Osmolality Calculated 301 mOsm/kg (285-295); Potassium 3.7 mmol/L (3.5-5.1); Sodium 144 mmol/L (136-145); Thyroid Stimulating Hormone 2.06 uIU/mL (0.36-3.74); Triglycerides 158 mg/dL (0-150)
--- OUTSIDE RECORDS SUMMARY | 2024-04-22 10:53 | XMS_ITS | Encounter Summary ---
Author Organization [facility] Address [address] [place] [address] Phone Care Team Providers Care Supervisory Forester Name Role Phone Yancy Guerrero MD Primary Care Provider + [phone] Lupillo Reyes MD Unavailable [phone] Encounter Details Date Type Department Care Team (Latest Contact Info) Description 04/03/2023 Orders Only [facility] Wendy Choudhary, RN [address] [facility] [address] [place] [address] Social History Tobacco Use Types Packs/Day Years Used Date Smoking Tobacco: Every Day Cigarettes 0.2 2 Smokeless Tobacco: Never Comments:Two packs per week for last 2 years Alcohol Use Standard Drinks/Week Comments Yes 0 (1 standard drink = 0.6 oz pur e alcohol) socially AUDIT-C Answer Date Recorded Q1: How often do you have a drink containing alc ohol? 2-4 times a month 07/21/2022 Q2: How many drinks containi ng alcohol do you have on a typical day when you are drinking? 1 or 2 07/21/2022 Q3: How often do you have si x or more drinks on one occasion? Never 07/21/2022 Personal Safety Answer Date Recorded Have you ever been in or are you currently in a harmful physical or emotional relationship or is someone making you feel afraid or unsafe? 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 Gender Identity Not on file Sexual Orientation Not on file documented as of this encounter Plan of Treatment Not on file documented as of this encounter Procedures Procedure Name Priority Date/Time Associated Diagnosis Comments SCAN - LABS 04/03/2023 documented in this encounter Results * SCAN - LABS (04/03/2023) us Wendy Choudhary RN Final Result documented in this encounter Visit Diagnoses Not on filedocumented in this encounter Care Teams Supervisory Forester Relationship Specialty Start Date End Date Yancy Guerrero MD [address] [place] [address] PCP - General 05/22/16 Lupillo Reyes MD [address] [facility] [address] [place] [address] Consulting Physician Orthopedic Surgery 07/26/22 documented as of this encounter
--- OUTSIDE RECORDS SUMMARY | 2024-04-22 10:53 | XMS_ITS | Encounter Summary ---
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 Gender Identity Not on file Sexual Orientation Not on file documented as of this encounter Plan of Treatment Not on file documented as of this encounter Procedures Procedure Name Priority Date/Time Associated Diagnosis Comments SCAN - LABS 03/28/2023 documented in this encounter Results * SCAN - LABS (03/28/2023) us Wendy Choudhary RN Final Result documented in this encounter Visit Diagnoses Not on filedocumented in this encounter Care Teams Cable Way Operator Relationship Specialty Start Date End Date Yancy Guerrero MD [address] [place] [address] PCP - General 05/22/16 Lupillo Reyes MD [address] [facility] [address] [place] [address] Consulting Physician Orthopedic Surgery 07/26/22 documented as of this encounter
--- OUTSIDE RECORDS SUMMARY | 2024-04-22 10:53 | XMS_ITS | Clinical Summary ---
Author Organization [facility] Address [address] [place] [address] Care Team Providers Care Director Of Community Life Name Role Phone Yancy Guerrero MD Primary Care Provider [phone] Lupillo Reyes MD Unavailable [phone] Allergies No known active allergies Medications citalopram (CeleXA) 10 mg tabletIndications :Anxiety with Depression Take 4 tablets (40 mg total) by mouth every morning Active LORazepam (ATIVAN) 0.5 mg tabletIndications :anxiety Take 1 tablet (0.5 mg total) by mouth 2 (two) times a day 2 8 Active docusate sodium (COLACE) 100 mg capsuleIndication s:constipation Take 1 capsule (100 mg total) by mouth 2 (two) times a day with a glass of water 30 capsule 3 Active traZODone (DESYREL) 100 mg tablet Take 1 tablet (100 mg total) by mouth nightly Active losartan (COZAAR) 25 mg tablet Take 4 tablets (100 mg total) by mouth nightly Active rivaroxaban (XARELTO) 20 mg tabletIndications :atrial fibrillation Take 1 tablet (20 mg total) by mouth daily with dinner 30 tablet 4 Active atorvastatin (LIPITOR) 80 mg tabletIndications :hyperlipidemia Take 1 tablet (80 mg total) by mouth nightly 30 tablet 1 4 06/03/19 25 Active amLODIPine (NORVASC) 5 mg tablet Take 1 tablet (5 mg total) by mouth daily 30 tablet 1 4 06/04/19 25 Active folic acid (FOLVITE) 1 mg tablet Take 1 tablet (1 mg total) by mouth daily 30 tablet 1 4 06/04/19 25 Active thiamine (VITAMIN B1) 100 mg tablet Take 1 tablet (100 mg total) by mouth daily 30 tablet 1 4 06/04/19 25 Active metoprolol tartrate (LOPRESSOR) 50 mg immediate release tablet Take 1 tablet (50 mg total) by mouth 2 (two) times a day 180 tablet 3 4 08/02/19 25 Active Active Problems Problem Noted Date Diagnosed Date A-fib 05/31/2023 Nicotine abuse 05/31/2023 Hypomagnesemia 05/31/2023 Hypokalemia 05/31/2023 Thrombocytopenia 05/31/2023 Alcohol use 05/31/2023 Anxiety 05/31/2023 Chronic anemia 05/31/2023 HTN (hypertension) 03/21/2023 Assessment & Plan (03/23/2023 7:20 AM SWEEP MOLDER): Atenolol resumed with reasonable control Continue to hold Dyazide and losartan until outpatient follow-up HLD (hyperlipidemia) 03/21/2023 Assessment & Plan (03/22/2023 2:05 PM SWEEP MOLDER): Continue atorvastatin Transaminases have normalized. Depression with anxiety 03/21/2023 Assessment & Plan (03/23/2023 7:20 AM SWEEP MOLDER): Cont citalopram 40mg daily and lorazepam 0.5mg BID Resolved Problems Problem Noted Date Diagnosed Date Resolved Date Hypotension 03/21/2023 03/22/2023 Assessment & Plan (03/21/2023 8:09 PM SWEEP MOLDER): - Presenting with BP 80/50s in setting of reduced PO intake and ongoing BP meds - (+)orthostatics on presentation - Hold BP meds, check orthostatics in AM - Restart meds as needed Headache 03/21/2023 03/22/2023 Assessment & Plan (03/21/2023 8:10 PM SWEEP MOLDER): - Tylenol ordered; avoid NSAIDs Weakness 03/21/2023 03/23/2023 Assessment & Plan (03/22/2023 2:06 PM SWEEP MOLDER): TSH and B12 within acceptable limits. Monitor symptoms as blood pressure and renal function recover Nausea 03/21/2023 03/22/2023 Assessment & Plan (03/21/2023 8:10 PM SWEEP MOLDER): - Zofran ordered SUN (acute kidney injury) 03/21/2023 Assessment & Plan (03/23/2023 7:19 AM SWEEP MOLDER): Creatinine improved today Check renal function and electrolytes in outpatient follow-up Continue to hold Dyazide and losartan until outpatient follow-up. Abnormal transaminases 03/21/202303/22 Assessment & Plan (03/21/2023 8:11 PM SWEEP MOLDER): - Elevated in setting of recent viral infection and presumed hypovolemia - Trend in AM - if continues to be elevated consider hepatitis panel/HIV given occupation history Complete rupture of rotator cuff 07/13/2022 03/21/2023 Acute medial meniscus tear of left knee 06/25/2020 03/21/2023 Overview (06/25/2020): Added automatically from request for surgery [id number] Axillary mass, left 12/30/2016 03/21/19 24 Lipoma of forehead 11/23/2015 4 Pain in shoulder 11/12/2014 03/21/2023 Syncope 03/06/2013 03/21/2023 Encounters Date Type Department Care Team Description 04/08/2024 10:20 AM SWEEP MOLDER Office Visit [facility] Orthopaedic Surgery [address] [place] [address] [address]nd [address] [place] [address] Carlos Alberto Ayoub MD Impingement of right shoulder (Primary Dx) 03/14/2024 9:40 AM SWEEP MOLDER Office Visit [facility] Orthopaedic Surgery [address] [place] [address] 2nd [address] [place] [address] Carlos Alberto Ayoub MD Impingement of right shoulder (Primary Dx) 03/08/2024 11:30 AM SWEEP MOLDER - 03/08/2024 11:59 PM SWEEP MOLDER Hospital Encounter [facility] Radiology [address] [place] [address] Acute pain of right shoulder Discharge Disposition: Discharge to home or self care 03/08/2024 11:27 AM SWEEP MOLDER - 03/08/2024 11:59 PM SWEEP MOLDER Hospital Encounter [facility] Radiology [address] [place] [address] Acute pain of right shoulder Discharge Disposition: Discharge to home or self care 02/26/2024 1:45 PM SWEEP MOLDER Ancillary Procedure Radiology - [address] [place] [address] [address] [place] [address] Acute pain of right shoulder 02/26/2024 1:20 PM SWEEP MOLDER Office Visit [facility] Orthopaedic Surgery [address] [place] [address] 2[address] [place] [address] Carlos Alberto Ayoub MD Sprain of right shoulder, unspecified shoulder sprain type, initial encounter (Primary Dx); Acute pain of right shoulder 02/26/[address] [facility] Orthopaedic Surgery [address] [place] [address] Floor [address] [place] [address] Carlos Alberto Ayoub MD from Last 3 Months Immunizations Immunization Administration Dates Next Due Influenza, Unspecified 11/13/2022 Pfizer SARS-CoV-2 Monovalent Vaccination (12+ Yrs) PURPLE 03/13/2020,02/18/2020 Surgical History Surgery Date Site/Laterality Comments TOTAL ABDOMINAL HYSTERECTOMY W/ BILATERAL SALPINGOOPHORECTOMY PELVIC LAPAROSCOPY x2 OOPHERECTOMY ANTERIOR AND POSTERIOR VAGINAL REPAIR BLADDER SUSPENSION TVT ROTATOR CUFF REPAIR Right Medical History Medical History Date Comments Traumatic complete tear of right rotator cuff Anxiety and depression Hypertension Dyslipidemia Atrial fibrillation, controlled (HCC) Family History Medical History Relation Name Comments Arthritis Father Cancer Father Heart disease Father No Known Problems Maternal Grandmother Diabetes Mother Heart disease Mother Seizures Mother No Known Problems Paternal Grandfather No Known Problems Paternal Grandmother No Known Problems Sister Anesthesia problems Neg Hx Relation Name Status Comments Father Maternal Grandmother Mother Paternal Grandfather Paternal Grandmother Sister Social History Tobacco Use Types Packs/Day Years Used Date Smoking Tobacco: Every Day Cigarettes 0.2 2 Smokeless Tobacco: Never Tobacco Cessation:Ready to Q uit: Not Asked; Counseling Given: Not Answered Comments:Two packs per week for last 2 years Alcohol Use Standard Drinks/Week Comments Yes 0 (1 standard drink = 0.6 oz pur e alcohol) socially [employer] Answer Date Recorded In the past 12 months has e [employer], gas, oil, or water [employer] threatened to shut off services in your home? No 06/02/2023 Social Connection and Isolat ion Panel [NHANES] Answer Date Recorded In a typical week, how many times do you talk on the phone with family, friends, or neighbors? More than three times a week 06/02/2023 How often do you get togethe r with friends or relatives? More than three times a week 06/02/2023 How often do you attend [facility] or judaism services? More than 4 times per year 06/02/2023 Do you belong to any clubs o r organizations such as worship groups, unions, fraternal or athletic groups, or school groups? No 06/02/2023 How often do you attend meet ings of the clubs or organizations you belong to? Never 06/02/2023 Are you , , di vorced, , never , or living with a partner? 06/02/2023 AUDIT-C Answer Date Recorded Q1: How often do you have a drink containing alc ohol? 2-3 times a week 05/31/2023 Q2: How many drinks containi ng alcohol do you have on a typical day when you are drinking? 1 or 2 05/31/2023 Q3: How often do you have si x or more drinks on one occasion? Weekly 05/31/2023 Overall Financial Resource Strain (CARDIA) Answe r Date Recorded How hard is it for you to pa y for the very basics like food, housing, medical care, and heating? Not very hard 06/02/2023 Hunger Vital Sign Answer Date Recorded Within the past 12 months, y ou worried that your food would run out before you got the money to buy more. Never true 06/02/19 24 Within the past 12 months, t he food you bought just didn't last and you didn't have money to get more. Never true 06/02/2023 PRAPARE - Transportation Answer Date Re corded In the past 12 months, has l ack of transportation kept you from medical appointments or from getting medications? No 05/14 In the past 12 months, has l ack of transportation kept you from meetings, work, or from getting things needed for daily living? No 06/02/2023 Housing Stability Vital Sign Answer Harshad e Recorded In the last 12 months, was t here a time when you were not able to pay the mortgage or rent on time? No 06/02/2023 In the last 12 months, how many places have you lived? 1 06/02/2023 In the last 12 months, was t here a time when you did not have a steady place to sleep or slept in a senior living (including now)? No 06/02/2023 Personal Safety Answer Date Recorded Have you ever been in or are you currently in a harmful physical or emotional relationship or is someone making you feel afraid or unsafe? Denies 05/31/2023 Comments No Sex and Gender Information Value Date Recorded Sex Assigned at Not on file Legal 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 SWEEP MOLDER Gender Identity Not on file Sexual Orientation Not on file Obstetrics History Last Filed Vital Signs Vital Sign Reading Time Taken Comments Blood Pressure 127/75 08/02/2023 1:12 PM CDT Pulse 81 08/02/2023 1:12 PM CDT Temperature 36.8 C (98.2 F) 08/02/2023 1:12 PM CDT Respiratory Rate 17 06/03/2023 11:10 AM CDT Oxygen Saturation 95% 08/02/2023 1:12 PM CDT Inhaled Oxygen Concentration - - Weight 81.6 kg (180 lb) 04/08/2024 10:29 AM SWEEP MOLDER Height 167.6 cm (5' 6 ) 04/08/2024 10:29 AM SWEEP MOLDER Body Mass Index 29.05 04/08/2024 10:29 AM SWEEP MOLDER Plan of Treatment Health Maintenance Due Date Last Done Comments Depression Screening 1960 Hepatitis C Screening 1960 Hepatitis B Screening 06/22/1979 Regular Well Visit/Exam 18-64 06/22/1979 Breast Cancer Screening-Mammogram 10/30/2020 10/31/2019, 10/31/2019, 10/05/2017, Additional history exists Covid-19 Vaccine (3 - 2023-2 5 season) 2023 03/13/2020, 02/18/2020 Influenza Vaccine (#1) 2023 3, 11/13/2022, 11/18/2021, Additional history exists Pneumococcal vaccine <65 (3 of 3 - PCV20 or PCV21) 05/04/2025 05/04/2020, 01/07/2020 Colon Cancer Screening-Colonoscopy 07/19/2027 07/18/2017, 03/09/2012 DTaP/Tdap/Td Vaccine (2 - Td or Tdap) 11/12/2031 11/11/2021 Colon Cancer Screening-CT Colonography Discontinued 07/18/2017, 03/09/2012 Colon Cancer Screening-DNA Stool Discontinued 07/19/19 18, 03/09/2012 Colon Cancer Screening-FIT Discontinued 07/18/2017, Colon Cancer Screening-Sigmoidoscopy Discontinued 07/18/2017, 03/09/2012 Zoster Vaccine Completed 07/15/2020, 05/04/2020 Medical Devices Implanted Type Area Power Marketer Device Identifier Shelf Expiration Date Model / Serial / Lot [employer] Corkscrew Tigertail 5.5mm 14.7mm Drive Mechanism Vent 2 Square [id number] - [id number] Implanted:Qty: 1 on 07/26/2022 by Lupillo Reyes MD at [facility] Right: Shoulder [employer] 02/13/2024 AR-1927BCF T / / [id number] [employer] Corkscrew Tigertail 5.5mm 14.7[address] Drive Mechanism Vent 2 Square [id number] - [id number] Implanted:Qty: 1 on 07/26/2022 by Lupillo Reyes MD at [facility] Right: Shoulder [employer] 11/12/2024 AR-1927BCF T / / [id number] [employer] Swivelock C 4.75mm 19.1mm Closed Eyelet Vent Matinicus Suture [id number] - [id number] Implanted:Qty: 1 on 07/26/2022 by Lupillo Reyes MD at [facility] Right: Shoulder [employer] 02/12/2026 [id number] / / [id number] Procedures Procedure Name Priority Date/Time Associated Diagnosis Comments [place] ARTHROCENTESIS ASPIR&/INJ MAJOR JT/BURSA W/O US Routine 03/14/2024 9:40 AM SWEEP MOLDER Impingement of right shoulder MRI SHOULDER ARTHROGRAM RIGHT W CONTRAST Schedule Routine, Read Routine (OP Routine) 03/08/2024 1:16 PM SWEEP MOLDER Acute pain of right shoulder INJECTION SHOULDER RIGHT ARTHRO ONLY Schedule Routine, Read Routine (OP Routine) 03/08/2024 12:26 PM SWEEP MOLDER Acute pain of right shoulder XR SHOULDER RIGHT 2 OR MORE VIEWS Schedule Routine, Read Routine (OP Routine) 02/26/2024 1:33 PM SWEEP MOLDER Acute pain of right shoulder COLONOSCOPY 07/18/2017 9:10 AM CDT from Last 3 Months or Most Recently Relevant to Health Maintenance Results * [place] ARTHROCENTESIS ASPIR&/INJ MAJOR JT/BURSA W/O US (03/14/2024 9:40 AM SWEEP MOLDER) Narrative Carlos Alberto Ayoub MD - 03/14/2024 9:40 AM SWEEP MOLDER Carlos Alberto Ayoub MD 03/14/2024 11:03 AM Large Joint Injection: R subacromial bursa Performed by: Carlos Alberto Ayoub MD Authorized by: Carlos Alberto Ayoub MD Procedure Details: Location: Shoulder Site: R subacromial bursa Ultrasound guided: No Fluroscopic guidance: No Medications: 3 mL BUPivacaine HCl 0.5 % (5 mg/mL); 2 mL lidocaine 10 mg/mL (1 %); 12 mg betamethasone 6 mg/mL us Carlos Alberto Ayoub MD IN CLINIC/BEDSIDE ORD ERABLES Final Result * MRI Shoulder Arthrogram Right W Contrast (03/08/2024 1:16 PM SWEEP MOLDER) Anatomical Region Laterality Modality Upper Extremities Right Magnetic Reson ance 03/08/2024 3:30 PM SWEEP MOLDER Impressions 03/08/2024 5:05 PM SWEEP MOLDER Postoperative changes of prior rotator cuff repair without recurrent full-thickness, retracted tear. However, there is a large volume of injected contrast within the subacromial-subdeltoid bursa, but no intrabursal fluid is seen on the pre-MRI fluoroscopic arthrogram image. There is a thin, full-thickness, slitlike defect adjacent to the greater tuberosity tendon anchor with imbibition of injected intra-articular contrast that may serve as a conduit between the intra-articular and intrabursal space and would explain the large volume of intrabursal contrast. This may reflect normal postoperative change or sequela of recent injury. Dictated by: Kranthi Caba D.O. The radiology attending physician has personally reviewed this study, and had reviewed and/or edited this written report and agrees with it. Electronically signed by: Meliza Clemens MD Narrative 03/08/2024 5:05 PM SWEEP MOLDER EXAMINATION: 1. MR right shoulder with contrast HISTORY: History of prior rotator cuff repair in 2022 with repeat injury in December 2023 FINDINGS: Comparison radiographs 02/26/2024, MRI 06/17/2022. Injection arthrogram was performed prior to the MR, which will be dictated separately. MR examination of the right shoulder was performed with a local coil. Transverse, oblique coronal, and oblique sagittal short TR/TE and fast spin-echo images are obtained. Lastly, the arm was placed in the position of abduction and external rotation and oblique short TR/TE images were obtained. There is a type 1 acromion. The coracoacromial ligament is normal. Postoperative changes of subacromial decompression. Normal acromioclavicular joint with postoperative changes of distal clavicle excision. There is a large volume injected contrast within the subacromial-subdeltoid bursa. There is slightly increased mild fatty infiltration of the supraspinatus and infraspinatus muscles. Unchanged severe atrophy of the teres minor muscle. The subscapularis is intact. Postoperative changes of rotator cuff repair without retracted, full thickness defect of the supraspinatus or infraspinatus tendons. Slitlike T1 and T2 hyperintense signal adjacent to the greater tuberosity tendon anchor at the junctional fibers. On this arthrographic evaluation, there are postoperative changes of prior superior glenoid labrum and bicipital anchor debridement with persistent irregularity/fraying. Additionally, there is increased free margin fraying of the posterior glenoid compared to prior without discrete tear. Postoperative changes of long head biceps tenodesis. The labrum below the equator is normal. No loose bodies are identified. The bone marrow signal is normal. Procedure Note Kelley Clemens MD - 03/08/2024 EXAMINATION: 1. MR right shoulder with contrast HISTORY: History of prior rotator cuff repair in 2022 with repeat injury in December 2023 FINDINGS: Comparison radiographs 02/26/2024, MRI 06/17/2022. Injection arthrogram was performed prior to the MR, which will be dictated separately. MR examination of the right shoulder was performed with a local coil. Transverse, oblique coronal, and oblique sagittal short TR/TE and fast spin-echo images are obtained. Lastly, the arm was placed in the position of abduction and external rotation and oblique short TR/TE images were obtained. There is a type 1 acromion. The coracoacromial ligament is normal. Postoperative changes of subacromial decompression. Normal acromioclavicular joint with postoperative changes of distal clavicle excision. There is a large volume injected contrast within the subacromial-subdeltoid bursa. There is slightly increased mild fatty infiltration of the supraspinatus and infraspinatus muscles. Unchanged severe atrophy of the teres minor muscle. The subscapularis is intact. Postoperative changes of rotator cuff repair without retracted, full thickness defect of the supraspinatus or infraspinatus tendons. Slitlike T1 and T2 hyperintense signal adjacent to the greater tuberosity tendon anchor at the junctional fibers. On this arthrographic evaluation, there are postoperative changes of prior superior glenoid labrum and bicipital anchor debridement with persistent irregularity/fraying. Additionally, there is increased free margin fraying of the posterior glenoid compared to prior without discrete tear. Postoperative changes of long head biceps tenodesis. The labrum below the equator is normal. No loose bodies are identified. The bone marrow signal is normal. IMPRESSION: Postoperative changes of prior rotator cuff repair without recurrent full-thickness, retracted tear. However, there is a large volume of injected contrast within the subacromial-subdeltoid bursa, but no intrabursal fluid is seen on the pre-MRI fluoroscopic arthrogram image. There is a thin, full-thickness, slitlike defect adjacent to the greater tuberosity tendon anchor with imbibition of injected intra-articular contrast that may serve as a conduit between the intra-articular and intrabursal space and would explain the large volume of intrabursal contrast. This may reflect normal postoperative change or sequela of recent injury. Dictated by: Kranthi Caab D.O. The radiology attending physician has personally reviewed this study, and had reviewed and/or edited this written report and agrees with it. Electronically signed by: Meliza Clemens MD Carlos Alberto Ayoub MD IMG MRI PROCEDURES Fi nal Result * Injection Shoulder Right Arthro Only (03/08/2024 12:26 PM SWEEP MOLDER) Anatomical Region Laterality Modality Shoulder Right Computed Radiogr aphy 03/08/2024 1:14 PM SWEEP MOLDER Impressions 03/08/2024 1:14 PM SWEEP MOLDER 1. Right glenohumeral joint injection under fluoroscopic for MR arthrography. Electronically signed by: Min Madrigal D.O. Narrative 03/08/2024 1:14 PM SWEEP MOLDER EXAMINATION: 1. Right glenohumeral joint injection 2. Fluoroscopic guidance for needle placement HISTORY: Right shoulder pain, pre MR arthrogram TECHNIQUE: The risks, benefits and alternatives were discussed with the patient. Informed consent was obtained. Prior to beginning the procedure, [place] Protocol was performed to confirm the patient's identity and the planned procedure. The fluoroscopy time has been recorded in the electronic medical record. The patient was placed supine on the procedure table. The right glenohumeral joint was localized with fluoroscopic guidance. The skin was prepped and draped in a standard sterile fashion. Using sterile technique, a 20 mL solution was prepared consisting of 10 mL of a 1:100 dilution of Dotarem gadolinium contrast in sterile saline and 10 mL Omnipaque 300. Local anesthesia was achieved with subcutaneous injection of 1% lidocaine 3 mL. A needle was then introduced into the joint under fluoroscopic guidance. Subsequently, 10 mL of the 1:200 gadolinium contrast was injected with intermittent fluoroscopic visualization. Complication: None The patient was then transferred to the MR suite for MR arthrogram. Dr. Min Madrigal D.O., the attending radiologist, was present from the beginning to the end of the procedure. FINDINGS: Fluoroscopic images confirm intra-articular position of the needle tip with subsequent filling of the joint space. The results of the MR arthrogram are reported separately. Procedure Note Min Madrigal, - 03/08/2024 EXAMINATION: 1. Right glenohumeral joint injection 2. Fluoroscopic guidance for needle placement HISTORY: Right shoulder pain, pre MR arthrogram TECHNIQUE: The risks, benefits and alternatives were discussed with the patient. Informed consent was obtained. Prior to beginning the procedure, [place] Protocol was performed to confirm the patient's identity and the planned procedure. The fluoroscopy time has been recorded in the electronic medical record. The patient was placed supine on the procedure table. The right glenohumeral joint was localized with fluoroscopic guidance. The skin was prepped and draped in a standard sterile fashion. Using sterile technique, a 20 mL solution was prepared consisting of 10 mL of a 1:100 dilution of Dotarem gadolinium contrast in sterile saline and 10 mL Omnipaque 300. Local anesthesia was achieved with subcutaneous injection of 1% lidocaine 3 mL. A needle was then introduced into the joint under fluoroscopic guidance. Subsequently, 10 mL of the 1:200 gadolinium contrast was injected with intermittent fluoroscopic visualization. Complication: None The patient was then transferred to the MR suite for MR arthrogram. Dr. Min Madrigal D.O., the attending radiologist, was present from the beginning to the end of the procedure. FINDINGS: Fluoroscopic images confirm intra-articular position of the needle tip with subsequent filling of the joint space. The results of the MR arthrogram are reported separately. IMPRESSION: 1. Right glenohumeral joint injection under fluoroscopic for MR arthrography. Electronically signed by: Min Madrigal D.O. Carlos Alberto Ayoub MD IMG XR PROCEDURES Fin al Result * XR Shoulder Right 2+ View (02/26/2024 1:33 PM SWEEP MOLDER) Anatomical Region Laterality Modality Upper Extremities, Shoulder Right Comp uted Radiography 02/26/2024 2:28 PM SWEEP MOLDER Impressions 02/26/2024 2:28 PM SWEEP MOLDER Normal right shoulder radiographs. Electronically signed by: Jesse Stone MD Narrative 02/26/2024 2:28 PM SWEEP MOLDER EXAMINATION: XR SHOULDER RIGHT 2 OR MORE VIEWS HISTORY: Right shoulder pain FINDINGS: Comparison dated 06/17/2022. Normal alignment. No fracture or dislocation. The glenohumeral joint is normal. Mild right acromioclavicular joint widening. Procedure Note Jesse Stone MD - 02/26/2024 EXAMINATION: XR SHOULDER RIGHT 2 OR MORE VIEWS HISTORY: Right shoulder pain FINDINGS: Comparison dated 06/17/2022. Normal alignment. No fracture or dislocation. The glenohumeral joint is normal. Mild right acromioclavicular joint widening. IMPRESSION: Normal right shoulder radiographs. Electronically signed by: Jesse Stone MD Carlos Alberto Ayoub MD G XR PROCEDURES Fin al Result * COLONOSCOPY (07/18/2017 9:10 AM CDT) Anatomical Region Laterality Modality Other Narrative Procedure Note Mike Locke MD - 07/18/2017 9:10 AM CDT [facility] Patient Name: Camille Shultz Procedure Date: 07/18/2017 9:10 AM Date of : 1960 Admit Type: Outpatient Age: 57 Gender: Female Attending MD: Mike Locke MD Room: [facility] Note Status: Finalized Patient Profile: 57 WF, no family h/o colon cancer, h/o adenoma polypin 2012. Procedure: Colonoscopy Indications: High risk colon cancer surveillance: Personalhistory of colonic polyps, Last colonoscopy: February 2012 Referring MD: Yancy Guerrero MD Providers: Mike Locke MD Impression: - Diverticulosis in the sigmoid colon. - Internal hemorrhoids. - No specimens collected. Recommendation: - Continue present medications. - Repeat colonoscopy in 5 years for surveillance. Medicines: Monitored Anesthesia Care Complications: No immediate complications. Estimated Blood Loss: Estimated blood loss: none. Procedure: Pre-Anesthesia Assessment: - Prior to the procedure, a History and Physical was performed, and patient medications and allergieswere reviewed. The patient's tolerance of previous anesthesia was also reviewed. The risks and benefitsof the procedure and the sedation options and riskswere discussed with the patient. All questions were answered, and informed consent was obtained. Prior Anticoagulants: The patient has taken no previous anticoagulant or antiplatelet agents. ASA Grade Assessment: II - A patient with mild systemicdisease. After reviewing the risks and benefits, the patientwas deemed in satisfactory condition to undergo the procedure. The benefits, risks and alternatives of theprocedure and sedation were discussed and informed consent was obtained. All questions were answered. Please referto the signed informed consent document in the medical record. The scope was passed under direct vision.The Pediatric Colonoscope PCF-H190L [id number] was introduced through the anus and advanced to the the cecum, identified by appendiceal orifice andileocecal valve. The colonoscopy was performed without difficulty. The patient tolerated the procedurewell. The quality of the bowel preparation was good. Findings: The perianal and digital rectal examinations were normal. The cecum appeared normal. Overall the entire colon was withinnormal. No poylps. A few small-mouthed diverticula were found in the sigmoid colon. Internal hemorrhoids were found during retroflexion. The hemorrhoids were small. Electronically signed by Mike Locke M.D. Mike Locke MD 07/18/2017 9:48:46 AM Number of Addenda: 0 Note Initiated On: 07/18/2017 9:10 AM Procedure Code(s): --- Professional --- 16877, Colonoscopy, flexible; diagnostic, including collection of specimen(s) by brushing or washing, when performed (separateprocedure) Diagnosis Code(s): --- Professional --- Z86.010, Personal history of colonic polyps K64.8, Other hemorrhoids K57.30, Diverticulosis of large intestine without perforation orabscess without bleeding CPT copyright 2017 [employer]. All rights reserved. The codes documented in this report are preliminary and upon medical record coder reviewmay be revised to meet current compliance requirements. Recognized by the [employer] for promoting quality in endoscopy Mike Locke MD ENDOSCOPY PROCEDURES Final Result from Last 3 Months or Most Recently Relevant to Health Maintenance Insurance [facility] [id number] [place] [address] [id number] [place] [address] CMR WORKERS COMPENSATION GENERIC [facility] Advance Directives For more information, please contact: [phone] * Full Code (Latest Code Status on File) Date Activated Date Inactivated Comments 05/31/2023 7:40 PM 06/03/2023 9:50 PM * Full Code Date Activated Date Inactivated Comments 03/21/2023 8:03 PM 03/23/2023 12:55 PM * Full Code Date Activated Date Inactivated Comments 09/01/2020 7:59 AM 09/01/2020 1:49 PM * Full Code Date Activated Date Inactivated Comments 07/18/2017 8:32 AM 07/18/2017 12:39 PM Care Teams Director Of Community Life Relationship Specialty Start Date End Date Yancy Guerrero MD [address] [place] [address] PCP - General 05/22/16 Lupillo Reyes MD [address] [address] Consulting Physician Orthopedic Surgery 07/26/22
--- OUTSIDE RECORDS SUMMARY | 2024-04-22 10:53 | XMS_ITS | Clinical Summary ---
Author Organization [facility] Address [address] [facility] [place] [address] Phone Care Team Providers Care Small Parts Shaper Operator Name Role Phone Yancy Guerrero MD Primary Care Provider + Allergies No known active allergies Medications atenolol (TENORMIN) 25 mg Oral Tab Take 25 mg by mouth 2 times daily. Active cyclobenzaprine (FLEXERIL) 10 mg tablet TAKE 1 TABLET BY MOUTH 3 TIMES A DAY NEEDED 0 12/08/2016 Active LORazepam (ATIVAN) 0.5 mg tablet TAKE ONE-HALF TO ONE TABLET BY MOUTH DAILY NEEDED FOR ANXIETY 2 11/29/2016 Active traZODone (DESYREL) 50 mg tablet TAKE 1 TABLETS BY MOUTH AT BEDTIME 5 11/26/2016 Active citalopram (CeleXA) 10 mg tablet Take 10 mg by mouth daily. Active ESTRADIOL (ESTRADERM TRANSDERMAL) Apply to skin as directed. Active Active Problems Problem Noted Date Diagnosed Date Axillary mass, left 12/30/2016 Family History Medical History Relation Name Comments Hypertension Father Mesothelioma Father Other Father Diabetes Mother Heart Disease Mother Hypertension Mother Breast Cancer Neg Hx Cancer Neg Hx Ovarian Cancer Neg Hx Relation Name Status Comments Father Mother Social History Tobacco Use Types Packs/Day Years Used Date Smoking Tobacco: Never Smokeless Tobacco: Never Alcohol Use Standard Drinks/Week Comments No 0 (1 standard drink = 0.6 oz pur e alcohol) Comments Unknown Sex and Gender Information Value Date Recorded Sex Assigned at Not on file Legal Sex Female 4:27 AM INSURANCE ADMINISTRATOR Gender Identity Not on file Sexual Orientation Not on file Occupation Industry Job Start Date Job End Date Not on file Not on file Not on file Not on file Last Filed Vital Signs Vital Sign Reading Time Taken Comments Blood Pressure 132/89 12/30/2016 11:52 AM INSURANCE ADMINISTRATOR Pulse 92 12/30/2016 11:52 AM INSURANCE ADMINISTRATOR Temperature 36.9 C (98.4 F) 01/29/2009 11:30 AM INSURANCE ADMINISTRATOR Respiratory Rate 16 01/29/2009 11:30 AM INSURANCE ADMINISTRATOR Oxygen Saturation 93% 01/29/2009 11:30 AM INSURANCE ADMINISTRATOR Inhaled Oxygen Concentration - - Weight 76.7 kg (169 lb) 12/30/2016 11:52 AM INSURANCE ADMINISTRATOR Height 167.6 cm (5' 6 ) 12/30/2016 11:52 AM INSURANCE ADMINISTRATOR Body Mass Index 27.28 12/30/2016 11:52 AM INSURANCE ADMINISTRATOR Plan of Treatment Health Maintenance Due Date Last Done Comments DTAP/TDAP/TD VACCINES (1 - Tdap) 1980 CERVICAL CANCER SCREENING 06/22/1991 COLORECTAL SCREENING 2006 Colorectal Cancer Screening 2006 FIT-DNA Q 3 years 2006 FIT/FOBT Q 1 year 2006 Flex Sig/CT Colonography Q 5 years 2006 ZOSTER VACCINE (1 of 2) 06/22/2011 BREAST CANCER SCREENING 10/30/2020 10/31/19, 10/05/2017, 03/04/2016, Additional history exists INFLUENZA VACCINE (#1) 2023 RSV VACCINE (60+ or ) (1 - 1-dose 75+ series) 2036 Medical Devices Implanted Type Area Clinical Research Scientist Device Identifier Shelf Expiration Date Model / Serial / Lot Sling Monarc [id number] Implanted:Qty: 1 on 01/28/2009 at [facility] Sling Pelvis [employer] [id number] / / Procedures Procedure Name Priority Date/Time Associated Diagnosis Comments MAMMO 3D PRO SCREEN BILAT W OR WO CAD Routine 10/31/2019 10:57 AM CDT Breast cancer screening by mammogram from Last 3 Months or Most Recently Relevant to Health Maintenance Results * MAMMO SCRN BILAT 3D PRO W OR WO CAD (10/31/2019 10:57 AM CDT) Anatomical Region Laterality Modality Breast Bilateral Mammography 10/31/2019 10:5 7 AM CDT Impressions 10/31/2019 3:53 PM CDT IMPRESSION: Negative bilateral screening mammogram. Recommend routine followup. OVERALL FINAL ASSESSMENT: BI-RADS CATEGORY 1: Negative DICTATION LOCATION: [facility] Narrative 10/31/2019 3:53 PM CDT BILATERAL SCREENING DIGITAL MAMMOGRAMS WITH 3D TOMOSYNTHESIS AND CAD DATE: 10/31/2019 10:57 AM HISTORY: Annual screening study. COMPARISON: 10/05/2017, 04/10/2013. TECHNIQUE: A bilateral screening mammogram was performed. Low-dose full-field digital breast tomosynthesis examination was performed with 2D and 3D acquisitions. Examination is read in conjunction with computer aided detection. BREAST COMPOSITION: Scattered fibroglandular densities. FINDINGS: No new masses, suspicious calcifications, or areas of asymmetry or distortion are identified. The images were reviewed using the CAD system. Procedure Note Olena Christy MD - 10/31/2019 BILATERAL SCREENING DIGITAL MAMMOGRAMS WITH 3D TOMOSYNTHESIS AND CAD DATE: 10/31/2019 10:57 AM HISTORY: Annual screening study. COMPARISON: 10/05/2017, 04/10/2013. TECHNIQUE: A bilateral screening mammogram was performed. Low-dose full-field digital breast tomosynthesis examination was performed with 2D and 3D acquisitions. Examination is read in conjunction with computer aided detection. BREAST COMPOSITION: Scattered fibroglandular densities. FINDINGS: No new masses, suspicious calcifications, or areas of asymmetry or distortion are identified. The images were reviewed using the CAD system. IMPRESSION: Negative bilateral screening mammogram. Recommend routine followup. OVERALL FINAL ASSESSMENT: BI-RADS CATEGORY 1: Negative DICTATION LOCATION: [facility] Tod Dallas MD MAMMO ORDERABLES Final Result from Last 3 Months or Most Recently Relevant to Health Maintenance Insurance [employer] [id number] [place] Advance Directives For more information, please contact: [phone] * Full Code (Latest Code Status on File) Date Activated Date Inactivated Comments 01/28/2009 9:06 PM 01/29/2009 4:29 PM * Full Code Date Activated Date Inactivated Comments 01/28/2009 7:38 PM 01/28/2009 9:06 PM * Full Code Date Activated Date Inactivated Comments 01/28/2009 2:46 PM 01/28/2009 7:38 PM Care Teams Small Parts Shaper Operator Relationship Specialty Start Date End Date Yancy Guerrero MD [address] [place] [address] PCP - General Internal Medicine 09/22/14
--- OUTSIDE RECORDS SUMMARY | 2024-04-22 10:53 | XMS_ITS | Referral Summary ---
Author Organization [facility] Address [address] [place] [address] Care Team Providers Care Hospital Liaison Name Role Phone Yancy Guerrero MD Primary Care Provider Lupillo Reyes MD Unavailable [phone] Encounters Date Type Department Care Team Description 04/08/2024 10:20 AM EAR NOSE THROAT PHYSICIAN Office Visit [facility] Orthopaedic Surgery [address] [place] [address] 2nd [address] [place] [address] Carlos Alberto Ayoub MD Impingement of right shoulder (Primary Dx) 03/14/2024 9:40 AM EAR NOSE THROAT PHYSICIAN Office Visit [facility] Orthopaedic Surgery [address] [place] [address] 2nd [address] [place] [address] Carlos Alberto Ayoub MD Impingement of right shoulder (Primary Dx) 03/08/2024 11:27 AM EAR NOSE THROAT PHYSICIAN - 03/08/2024 11:59 PM EAR NOSE THROAT PHYSICIAN Hospital Encounter [facility] Radiology [address] [place] [address] Acute pain of right shoulder Discharge Disposition: Discharge to home or self care 03/08/2024 11:30 AM EAR NOSE THROAT PHYSICIAN - 03/08/2024 11:59 PM EAR NOSE THROAT PHYSICIAN Hospital Encounter [facility] Radiology [address] [place] [address] Acute pain of right shoulder Discharge Disposition: Discharge to home or self care 02/26/2024 Telephone [facility] Orthopaedic Surgery [address] [facility] 2nd [address] [place] [address] Carlos Alberto Ayoub MD 02/26/2024 1:45 PM EAR NOSE THROAT PHYSICIAN Ancillary Procedure Radiology - [address] [place] [address] [address] [place] [address] Acute pain of right shoulder 02/26/2024 1:20 PM EAR NOSE THROAT PHYSICIAN Office Visit [facility] Orthopaedic Surgery [address] [facility] 2nd Floor [address] [place] [address] Carlos Alberto Ayoub MD Sprain of right shoulder, unspecified shoulder sprain type, initial encounter (Primary Dx); Acute pain of right shoulder from Last 3 Months Allergies No known active allergies Medications citalopram [...] 03/21/2023 Assessment & Plan (03/23/2023 7:20 AM EAR NOSE THROAT PHYSICIAN): Atenolol resumed with reasonable control Continue to hold Dyazide and losartan until outpatient follow-up HLD (hyperlipidemia) 03/21/2023 Assessment & Plan (03/22/2023 2:05 PM EAR NOSE THROAT PHYSICIAN): Continue atorvastatin Transaminases have normalized. Depression with anxiety 03/21/2023 Assessment & Plan (03/23/2023 7:20 AM EAR NOSE THROAT PHYSICIAN): Cont citalopram 40mg daily and lorazepam 0.5mg BID Resolved Problems Problem Noted Date Diagnosed Date Resolved Date Hypotension 03/21/2023 03/22/2023 Assessment & Plan (03/21/2023 8:09 PM EAR NOSE THROAT PHYSICIAN): - Presenting with BP 80/50s in setting of reduced PO intake and ongoing BP meds - (+)orthostatics on presentation - Hold BP meds, check orthostatics in AM - Restart meds as needed Headache 03/21/2023 03/22/2023 Assessment & Plan (03/21/2023 8:10 PM EAR NOSE THROAT PHYSICIAN): - Tylenol ordered; avoid NSAIDs Weakness 03/21/2023 03/23/2023 Assessment & Plan (03/22/2023 2:06 PM EAR NOSE THROAT PHYSICIAN): TSH and B12 within acceptable limits. Monitor symptoms as blood pressure and renal function recover Nausea 03/21/2023 03/22/2023 Assessment & Plan (03/21/2023 8:10 PM EAR NOSE THROAT PHYSICIAN): - Zofran ordered SUN (acute kidney injury) 03/21/2023 Assessment & Plan (03/23/2023 7:19 AM EAR NOSE THROAT PHYSICIAN): Creatinine improved today Check renal function and electrolytes in outpatient follow-up Continue to hold Dyazide and losartan until outpatient follow-up. Abnormal transaminases 03/21/202303/22 Assessment & Plan (03/21/2023 8:11 PM EAR NOSE THROAT PHYSICIAN): - Elevated in setting of recent viral infection and presumed hypovolemia - Trend in AM - if continues to be elevated consider hepatitis panel/HIV given occupation history Complete rupture of rotator cuff 07/13/2022 03/21/2023 Acute medial meniscus tear of left knee 06/25/2020 03/21/2023 Overview (06/25/2020): Added automatically from request for surgery [id number] Axillary mass, left 12/30/2016 03/21/19 24 Lipoma of forehead 11/23/2015 4 Pain in shoulder 11/12/2014 03/21/2023 Syncope 03/06/2013 03/21/2023 Immunizations Immunization Administration Dates Next Due Influenza, Unspecified 11/13/2022 Pfizer SARS-CoV-2 Monovalent Vaccination (12+ Yrs) PURPLE 03/13/2020,02/18/2020 Social History Tobacco Use Types Packs/Day Years Used Date Smoking Tobacco: Every Day Cigarettes 0.2 2 Smokeless Tobacco: Never Tobacco Cessation:Ready to Q uit: Not Asked; Counseling Given: Not Answered Comments:Two packs per week for last 2 years Alcohol Use Standard Drinks/Week Comments Yes 0 (1 standard drink = 0.6 oz pur e alcohol) socially [facility] Utilities Answer Date Recorded In the past 12 months has [employer], gas, oil, or water [facility] threatened to shut off services in your [...] week 06/02/2023 How often do you attend chur ch or bahai services? More than 4 times per year 06/02/2023 Do you belong to any clubs o r organizations such as nondenominational groups, unions, fraternal or athletic groups, or [...] place to sleep or slept in a snf (including now)? No 06/02/2023 Personal Safety Answer Date Recorded Have you ever been in or are you currently in a harmful physical or emotional relationship or is someone making you feel afraid or unsafe? Denies 05/31/2023 Comments No Sex and Gender Information Value Date Recorded Sex Assigned at Not on file Legal 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 EAR NOSE THROAT PHYSICIAN Gender Identity Not on file Sexual Orientation Not on file Last Filed Vital Signs Vital Sign Reading Time Taken Comments Blood Pressure 127/75 08/02/2023 1:12 PM CDT Pulse 81 08/02/2023 1:12 PM CDT Temperature 36.8 C (98.2 F) 08/02/2023 1:12 PM CDT Respiratory Rate 17 06/03/2023 11:10 AM CDT Oxygen Saturation 95% 08/02/2023 1:12 PM CDT Inhaled Oxygen Concentration - - Weight 81.6 kg (180 lb) 04/08/2024 10:29 AM EAR NOSE THROAT PHYSICIAN Height 167.6 cm (5' 6 ) 04/08/2024 10:29 AM EAR NOSE THROAT PHYSICIAN Body Mass Index 29.05 04/08/2024 10:29 AM EAR NOSE THROAT PHYSICIAN Plan of Treatment Not on file Medical Devices Implanted Type Area Senior Storage Administrator Device Identifier Shelf Expiration Date Model / Serial / Lot [employer] Corkscrew Tigertail 5.5mm 14.7mm Drive Mechanism Vent 2 Square [id number] - [id number] Implanted:Qty: 1 on 07/26/2022 by Lupillo Reyes MD at [facility] Right: Shoulder [employer] 02/13/2024 AR-1927BCF T / / [id number] [employer] Corkscrew Tigertail 5.5mm 14.7[address] Drive Mechanism Vent 2 Square [id number] - [id number] Implanted:Qty: 1 on 07/26/2022 by Lupillo Reyes MD at [facility] Right: Shoulder [employer] 11/12/2024 AR-[id number] T / / [id number] [employer] Swivelock C 4.75mm 19.1mm Closed Eyelet Vent [place] Suture Ar-[id number] - [id number] Implanted:Qty: 1 on 07/26/2022 by Lupillo Reyes MD at [facility] Right: Shoulder [employer] 02/12/2026 [id number] / / [id number] Procedures Procedure Name Priority Date/Time Associated Diagnosis Comments [place] ARTHROCENTESIS ASPIR&/INJ MAJOR JT/BURSA W/O US Routine 03/14/2024 9:40 AM EAR NOSE THROAT PHYSICIAN Impingement of right shoulder MRI SHOULDER ARTHROGRAM RIGHT W CONTRAST Schedule Routine, Read Routine (OP Routine) 03/08/2024 1:16 PM EAR NOSE THROAT PHYSICIAN Acute pain of right shoulder INJECTION SHOULDER RIGHT ARTHRO ONLY Schedule Routine, Read Routine (OP Routine) 03/08/2024 12:26 PM EAR NOSE THROAT PHYSICIAN Acute pain of right shoulder XR SHOULDER RIGHT 2 OR MORE VIEWS Schedule Routine, Read Routine (OP Routine) 02/26/2024 1:33 PM EAR NOSE THROAT PHYSICIAN Acute pain of right shoulder COLONOSCOPY 07/18/2017 9:10 AM CDT from Last 3 Months or Most Recently Relevant to Health Maintenance Results * MN ARTHROCENTESIS ASPIR&/INJ MAJOR JT/BURSA W/O US (03/14/2024 9:40 AM EAR NOSE THROAT PHYSICIAN) Narrative Carlos Alberto Ayoub MD - 03/14/2024 9:40 AM EAR NOSE THROAT PHYSICIAN Carlos Alberto Ayoub MD 03/14/2024 11:03 AM [...] Arthrogram Right W Contrast (03/08/2024 1:16 PM EAR NOSE THROAT PHYSICIAN) Anatomical Region Laterality Modality Upper Extremities Right Magnetic Reson ance 03/08/2024 3:30 PM EAR NOSE THROAT PHYSICIAN Impressions 03/08/2024 5:05 PM EAR NOSE THROAT PHYSICIAN Postoperative changes of prior rotator cuff repair [...] and agrees with it. Electronically signed by: MD Adam Huerta 03/08/2024 5:05 PM EAR NOSE THROAT PHYSICIAN EXAMINATION: 1. MR right shoulder with contrast [...] it. Electronically signed by: Meliza Clemens MD us Carlos Alberto Ayoub MD IMG MRI PROCEDURES Fi nal Result * Injection Shoulder Right Arthro Only (03/08/2024 12:26 PM EAR NOSE THROAT PHYSICIAN) Anatomical Region Laterality Modality Shoulder Right Computed Radiogr aphy 03/08/2024 1:14 PM EAR NOSE THROAT PHYSICIAN Impressions 03/08/2024 1:14 PM EAR NOSE THROAT PHYSICIAN 1. Right glenohumeral joint injection under fluoroscopic for MR arthrography. Electronically signed by: Min Madrigal D.O. Narrative 03/08/2024 1:14 PM EAR NOSE THROAT PHYSICIAN EXAMINATION: 1. Right glenohumeral joint injection 2. Fluoroscopic guidance for needle placement HISTORY: Right shoulder pain, pre MR arthrogram TECHNIQUE: The risks, benefits and alternatives were discussed with the patient. Informed consent was obtained. Prior to beginning the procedure, Wallback Protocol was performed to confirm the patient's [...] arthrogram are reported separately. Procedure Note Min Madrigal Mae, DO - 03/08/2024 EXAMINATION: 1. Right glenohumeral joint injection 2. Fluoroscopic guidance for needle placement HISTORY: Right shoulder pain, pre MR arthrogram TECHNIQUE: The risks, benefits and alternatives were discussed with the patient. Informed consent was obtained. Prior to beginning the procedure, Wallback Protocol was performed to confirm the patient's [...] Min Madrigal D.O. Carlos Alberto Ayoub MD G XR PROCEDURES Fin al Result * XR Shoulder Right 2+ View (02/26/2024 1:33 PM EAR NOSE THROAT PHYSICIAN) Anatomical Region Laterality Modality Upper Extremities, Shoulder Right Comp uted Radiography 02/26/2024 2:28 PM EAR NOSE THROAT PHYSICIAN Impressions 02/26/2024 2:28 PM EAR NOSE THROAT PHYSICIAN Normal right shoulder radiographs. Electronically signed by: Jesse Stone MD Narrative 02/26/2024 2:28 PM EAR NOSE THROAT PHYSICIAN EXAMINATION: XR SHOULDER RIGHT 2 OR MORE [...] Jesse Stone MD Carlos Alberto Ayoub MD [facility] XR PROCEDURES Fin al Result * COLONOSCOPY (07/18/2017 9:10 AM CDT) Anatomical Region Laterality Modality Other Narrative Procedure Note Mike Locke MD - 07/18/2017 9:10 AM CDT [facility] Patient Name: Camille Shultz Procedure Date: 07/18/2017 9:10 AM Date of : 1960 Admit Type: Outpatient Age: 57 Gender: Female Attending MD: Mike Locke MD Room: [facility] Note Status: Finalized Patient Profile: [...] passed under direct vision.The Pediatric Colonoscope PCF-H190L [id number] was introduced through the anus and advanced [...] 9:10 AM Procedure Code(s): --- Professional --- 79803, Colonoscopy, flexible; diagnostic, including collection of specimen(s) by brushing or washing, when performed (separateprocedure) Diagnosis Code(s): --- Professional --- Z86.010, Personal history of colonic polyps K64.8, Other hemorrhoids K57.30, Diverticulosis of large intestine without perforation orabscess without bleeding CPT copyright 2017 [employer]. All rights reserved. The codes documented in this report are preliminary and upon firer powerhouse reviewmay be revised to meet current compliance requirements. Recognized by the [employer] for promoting quality in endoscopy Mike Locke MD ENDOSCOPY PROCEDURES Final Result from Last 3 Months or Most Recently Relevant to Health Maintenance Insurance [facility] WORKERS COMPENSATION [facility]IC [facility] Advance Directives For more information, please contact: [phone] * Full Code (Latest Code Status on File) Date Activated Date Inactivated Comments 05/31/2023 7:40 PM 06/03/2023 9:50 PM * Full Code Date Activated Date Inactivated Comments 03/21/2023 8:03 PM 03/23/2023 12:55 PM * Full Code Date Activated Date Inactivated Comments 09/01/2020 7:59 AM 09/01/2020 1:49 PM * Full Code Date Activated Date Inactivated Comments 07/18/2017 8:32 AM 07/18/2017 12:39 PM Care Teams Hospital Liaison Relationship Specialty Start Date End Date Yancy Guerrero MD [address] [place] [address] PCP - General 05/22/16 Lupillo Reyes MD [address] [place] [id number] Consulting Physician Orthopedic Surgery 07/26/22
--- OUTSIDE RECORDS SUMMARY | 2024-04-22 10:53 | XMS_ITS | Encounter Summary ---
Author Organization [facility] Address [address] [place] [address] Phone Care Team Providers Care Branch Services Manager Name Role Phone Yancy Guerrero MD Primary Care Provider + [phone] Lupillo Reyes MD Unavailable [phone] Encounter Details Date Type Department Care Team (Latest Contact Info) Description 02/28/2023 Orders Only [facility] Wendy Choudhary, RN [address] [facility] [address] [place] [address] Social History Tobacco Use Types [...] more drinks on one occasion? Never 07/21/2022 Comments No Sex and Gender Information Value Date Recorded Sex Assigned at Not on file Legal 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 SHOES HAND SEWER Gender Identity Not on file Sexual Orientation Not on file documented as of this encounter Plan of Treatment Not on file documented as of this encounter Procedures Procedure Name Priority Date/Time Associated Diagnosis Comments SCAN - RADIOLOGY/IMAGING 02/28/2023 documented in this encounter Results * SCAN - RADIOLOGY/IMAGING (02/28/2023) Anatomical Region Laterality Modality Other us Wendy Choudhary RN Final Result documented in this encounter Visit Diagnoses Not on filedocumented in this encounter Care Teams Branch Services Manager Relationship Specialty Start Date End Date Yancy Guerrero MD [address] [place] [address] PCP - General 05/22/16 Lupillo Reyes MD [address] [facility] [place] [address] [place] [address] Consulting Physician Orthopedic Surgery 07/26/22 documented as of this encounter
--- OUTSIDE RECORDS SUMMARY | 2024-04-22 10:53 | XMS_ITS | Encounter Summary ---
Author Organization [facility] Address [address] [place] [address] Phone Care Team Providers Care Record Changer Assembler Name Role Phone Yancy Guerrero MD Primary Care Provider + [phone] Lupillo Reyes MD Unavailable [phone] Encounter Details Date Type Department Care Team (Latest Contact Info) Description 04/13/2023 Orders Only [facility] Wendy Choudhary, RN [address] [facility] [address] [place] [address] Social History Tobacco Use Types [...] on file 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 Gender Identity Not on file Sexual Orientation Not on file documented as of this encounter Plan of Treatment Not on file documented as of this encounter Procedures Procedure Name Priority Date/Time Associated Diagnosis Comments SCAN - LABS 04/13/2023 documented in this encounter Results * SCAN - LABS (04/13/2023) us Wendy Choudhary RN Final Result documented in this encounter Visit Diagnoses Not on filedocumented in this encounter Care Teams Record Changer Assembler Relationship Specialty Start Date End Date Yancy Guerrero MD [address] [place] [address] PCP - General 05/22/16 Lupillo Reyes MD [address] [facility] [address] [place] [address] Consulting Physician Orthopedic Surgery 07/26/22 documented as of this encounter
--- OUTSIDE RECORDS SUMMARY | 2024-04-22 10:53 | XMS_ITS | Encounter Summary ---
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 Gender Identity Not on file Sexual Orientation Not on file documented as of this encounter Plan of Treatment Not on file documented as of this encounter Procedures Procedure Name Priority Date/Time Associated Diagnosis Comments SCAN - RADIOLOGY/IMAGING 03/06/2023 documented in this encounter Results * SCAN - RADIOLOGY/IMAGING (03/06/2023) Anatomical Region Laterality Modality Other us Wendy Choudhary RN Final Result documented in this encounter Visit Diagnoses Not on filedocumented in this encounter Care Teams Landscaping Specialist Relationship Specialty Start Date End Date Yancy Guerrero MD [address] [place] [address] PCP - General 05/22/16 Lupillo Reyes MD [address] [facility] [address] [place] [address] Consulting Physician Orthopedic Surgery 07/26/22 documented as of this encounter
--- OUTSIDE RECORDS SUMMARY | 2024-04-22 10:53 | XMS_ITS | Encounter Summary ---
Author Organization [facility] Address [address] [place] [address] Phone Care Team Providers Care Perl Developer Name Role Phone Yancy Guerrero MD Primary Care Provider + [phone] Lupillo Reyes MD Unavailable [phone] Encounter Details Date Type Department Care Team (Latest Contact Info) Description 04/28/2023 Orders Only [facility] Wendy Choudhary, RN [address] 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 Gender Identity Not on file Sexual Orientation Not on file documented as of this encounter Plan of Treatment Not on file documented as of this encounter Procedures Procedure Name Priority Date/Time Associated Diagnosis Comments SCAN - LABS 04/28/2023 documented in this encounter Results * SCAN - LABS (04/28/2023) us Wendy Choudhary RN Final Result documented in this encounter Visit Diagnoses Not on filedocumented in this encounter Care Teams Perl Developer Relationship Specialty Start Date End Date Yancy Guerrero MD [address] [place] [address] PCP - General 05/22/16 Lupillo Reyes MD [address] [facility] [address] [place] [address] Consulting Physician Orthopedic Surgery 07/26/22 documented as of this encounter
--- OUTSIDE RECORDS SUMMARY | 2024-04-22 10:53 | XMS_ITS ---
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 Every day How many cigarettes a day do you smoke? 5 or les s How soon after you wake up do you smoke your fir st cigarette? 6-30 minutes Are you interested in quitting? Ready to quit AUDIT-C (Standard) Question Answer Notes Did you have a drink contain ing alcohol in the past year? Yes Points 6 How often did you have six o r more drinks on one occasion in the past year? 2 to 4 times a month (2 points) How many drinks did you have on a typical day when you were drinking in the past year? 3 or 4 drinks (1 point) How often did you have a dri nk containing alcohol in the past year? 2 to 3 times a week (3 points) Problems Problem Type SNOMED Code ICD Code Onset Dates Problem Status W/U Status Risk Notes Problem Posttraumatic stress disorder (58036960) PTSD (post-traum atic stress disorder) (F43.10) Active confirmed Encounters Encounter Location Date Provider Diagnosis [email or web address] [address] [facility] [address] [place] [address] 02/28/2024 Arcelia Tripp Major depressive disorder, recurrent severe without psychotic features F33.2 ; Generalized anxiety disorder F41.1 ; Alcohol abuse F10.10 and PTSD (post-traumatic stress disorder) F43.10 Assessments Encounter Date Diagnosis (ICD Code) Assessment Notes Treatment Notes Treatment Clinical Notes Section Notes 02/28/2024 Major depressive disorder, recurrent severe without psychotic features (ICD-10 - F33.2) Depression Continue with weekly therapy sessions to address underlying issues. Utilize a daily shoe lay out planner incorporating affirmations and goals to foster a positive mindset. Engage in social activities and maintain connections with supportive friends and family members. Assess progress regularly and consider the introduction of medication management if deemed necessary. Alcohol Use Disorder Persist in attending AA meetings and collaborating closely with a sponsor. Emphasize the critical importance of sobriety and the avoidance of known triggers. Regularly monitor progress towards maintaining long-term sobriety. Family Conflict Set clear boundaries with brother Gilmar, communicating the need for personal space effectively. Focus on nurturing relationships with supportive family members and friends. Develop and implement healthy communication strategies to address and resolve family conflicts. Grief and Loss Encourage active engagement in the grieving process, including organizing personal belongings and considering memorial options. Find meaningful ways to honor and remember her , such as creating memory pillows. Monitor the patient's journey through grief and the adjustment to life changes post-loss. Shoulder Pain and Possible Tear Proceed with an MRI to evaluate the extent of the potential tear. Consult with an windows server specialist for a comprehensive evaluation and to outline a treatment strategy. Promote engagement in suitable physical activities and explore affordable exercise options like walking or gym memberships. Anxiety Utilize grounding techniques, such as the use of lavender incense, to mitigate stress before anticipated stressful events. Support the development of effective coping strategies for anxiety management. Continuously evaluate anxiety levels and consider the integration of medication management as necessary. Legal Issues (DUI) Attend the scheduled court appointment to address the DUI charge responsibly. Prepare a transportation plan in anticipation of a possible license suspension. Monitor the impact of legal challenges on mental health and overall well-being. Follow-up: Arrange a follow-up appointment for next Monday to review the patient's progress and continue addressing the identified issues. 02/28/2024 Generalized anxiety disorder (ICD-10 - F41.1) Depression Continue with weekly therapy sessions to address underlying issues. Utilize a daily shoe lay out planner incorporating affirmations and goals to foster a positive mindset. Engage in social activities and maintain connections with supportive friends and family members. Assess progress regularly and consider the introduction of medication management if deemed necessary. Alcohol Use Disorder Persist in attending AA meetings and collaborating closely with a sponsor. Emphasize the critical importance of sobriety and the avoidance of known triggers. Regularly monitor progress towards maintaining long-term sobriety. Family Conflict Set clear boundaries with brother Gilmar, communicating the need for personal space effectively. Focus on nurturing relationships with supportive family members and friends. Develop and implement healthy communication strategies to address and resolve family conflicts. Grief and Loss Encourage active engagement in the grieving process, including organizing personal belongings and considering memorial options. Find meaningful ways to honor and remember her , such as creating memory pillows. Monitor the patient's journey through grief and the adjustment to life changes post-loss. Shoulder Pain and Possible Tear Proceed with an MRI to evaluate the extent of the potential tear. Consult with an windows server specialist for a comprehensive evaluation and to outline a treatment strategy. Promote engagement in suitable physical activities and explore affordable exercise options like walking or gym memberships. Anxiety Utilize grounding techniques, such as the use of lavender incense, to mitigate stress before anticipated stressful events. Support the development of effective coping strategies for anxiety management. Continuously evaluate anxiety levels and consider the integration of medication management as necessary. Legal Issues (DUI) Attend the scheduled court appointment to address the DUI charge responsibly. Prepare a transportation plan in anticipation of a possible license suspension. Monitor the impact of legal challenges on mental health and overall well-being. Follow-up: Arrange a follow-up appointment for next Monday to review the patient's progress and continue addressing the identified issues. 02/28/2024 Alcohol abuse (ICD-10 - F10.10) Depression Continue with weekly therapy sessions to address underlying issues. Utilize a daily shoe lay out planner incorporating affirmations and goals to foster a positive mindset. Engage in social activities and maintain connections with supportive friends and family members. Assess progress regularly and consider the introduction of medication management if deemed necessary. Alcohol Use Disorder Persist in attending AA meetings and collaborating closely with a sponsor. Emphasize the critical importance of sobriety and the avoidance of known triggers. Regularly monitor progress towards maintaining long-term sobriety. Family Conflict Set clear boundaries with brothrobbi Schafer, communicating the need for personal space effectively. Focus on nurturing relationships with supportive family members and friends. Develop and implement healthy communication strategies to address and resolve family conflicts. Grief and Loss Encourage active engagement in the grieving process, including organizing personal belongings and considering memorial options. Find meaningful ways to honor and remember her , such as creating memory pillows. Monitor the patient's journey through grief and the adjustment to life changes post-loss. Shoulder Pain and Possible Tear Proceed with an MRI to evaluate the extent of the potential tear. Consult with an windows server specialist for a comprehensive evaluation and to outline a treatment strategy. Promote engagement in suitable physical activities and explore affordable exercise options like walking or gym memberships. Anxiety Utilize grounding techniques, such as the use of lavender incense, to mitigate stress before anticipated stressful events. Support the development of effective coping strategies for anxiety management. Continuously evaluate anxiety levels and consider the integration of medication management as necessary. Legal Issues (DUI) Attend the scheduled court appointment to address the DUI charge responsibly. Prepare a transportation plan in anticipation of a possible license suspension. Monitor the impact of legal challenges on mental health and overall well-being. Follow-up: Arrange a follow-up appointment for next Monday to review the patient's progress and continue addressing the identified issues. 02/28/2024 PTSD (post-traumatic stress disorder) (ICD-10 - F43.10) Depression Continue with weekly therapy sessions to address underlying issues. Utilize a daily shoe lay out planner incorporating affirmations and goals to foster a positive mindset. Engage in social activities and maintain connections with supportive friends and family members. Assess progress regularly and consider the introduction of medication management if deemed necessary. Alcohol Use Disorder Persist in attending AA meetings and collaborating closely with a sponsor. Emphasize the critical importance of sobriety and the avoidance of known triggers. Regularly monitor progress towards maintaining long-term sobriety. Family Conflict Set clear boundaries with brother Gilmar, communicating the need for personal space effectively. Focus on nurturing relationships with supportive family members and friends. Develop and implement healthy communication strategies to address and resolve family conflicts. Grief and Loss Encourage active engagement in the grieving process, including organizing personal belongings and considering memorial options. Find meaningful ways to honor and remember her , such as creating memory pillows. Monitor the patient's journey through grief and the adjustment to life changes post-loss. Shoulder Pain and Possible Tear Proceed with an MRI to evaluate the extent of the potential tear. Consult with an windows server specialist for a comprehensive evaluation and to outline a treatment strategy. Promote engagement in suitable physical activities and explore affordable exercise options like walking or gym memberships. Anxiety Utilize grounding techniques, such as the use of lavender incense, to mitigate stress before anticipated stressful events. Support the development of effective coping strategies for anxiety management. Continuously evaluate anxiety levels and consider the integration of medication management as necessary. Legal Issues (DUI) Attend the scheduled court appointment to address the DUI charge responsibly. Prepare a transportation plan in anticipation of a possible license suspension. Monitor the impact of legal challenges on mental health and overall well-being. Follow-up: Arrange a follow-up appointment for next Monday to review the patient's progress and continue addressing the identified issues. Plan Of Treatment Next Appt Details Follow Up: 1 Week, Reason: Progress Notes * Camille KOODOB: [birth year] (63 yo F)Acc No.[id number]:02/28/2024 Patient: Anabel KAUR Camille Hetal Provider: Ami Tripp :1960 A ge:63 Y S ex:Female Date:02/28/2024 Phone: Address:[address] [place], [place] [id number] Pcp:Yancy Guerrero MD Data: * Time Tracker: * Date Start Time End Time Duration User Type Captured By Mode Notes 02/28/2024 03:09 PM 03:59 PM 00:50:00 Therapist Roman Tripp Timer * Chief Complaints: * 1 . Follow up therapy, depression. 2. Depression screening positive. * HPI: D epression screening: PHQ-9 L ittle interest or pleasure in doing things N early every day, F eeling down, depressed, or hopeless N early every day, T rouble falling or staying asleep, or sleeping too much N early every day, F eeling tired or having little energy N early every day, P oor appetite or overeating M ore than half the days, F eeling bad about yourself or that you are a failure, or have let yourself or your family down N early every day, T rouble concentrating on things, such as reading the newspaper or watching television ever, M oving or speaking so slowly that other people could have noticed; or the opposite, being so fidgety or restless that you have been moving around a lot more than usual?Not at all, T houghts that you would be better off or of hurting yourself in some way Not at all, T otal Score 1 8, I nterpretation M oderately Severe Depression.?Intervention D epression Screening Findings P annie, F ollow-Up for Depression M [facility] treatment assessment, Patient follow-up to return when and if necessary, S uicide Risk Assessment Performed 0 02/29/2024 , A dditional Evaluation for Depression Psychiatric interview and evaluation, N dari of the standardized tool used for adult depression screening: P atient Health Questionnaire (PHQ-9). D epression Screening: LENY-7 (2018 Edition) F eeling nervous, anxious, or on edge?Nearly every day, N ot being able to stop or control worrying N early every day, W orrying too much about different things N early every day, T rouble relaxing N early every day, B eing so restless that it is hard to sit still N early every day, B ecoming easily annoyed or irritable M ore than half the days, F eeling afraid as if something awful might happen N early every day, T otal LENY-7 Score 2 0, I nterpretation of Total ( 15 and over) Severe. F unctional Status: Client presents today for psychotherapy to treat depression. Based on the session, the client appears to be making fair progress. Changes to the treatment plan are not recommended at this time. Client denies wanting to harm self or others at this time. Discussed continued treatment with client. She would like to meet again in one week. The patient reports ongoing struggles with depression, anxiety, and alcohol use. She has been attending AA meetings and has maintained sobriety for a month. She is facing a DUI court hearing tomorrow, which is causing her significant stress. 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 She has been experiencing interpersonal conflicts with her brother, which have contributed to her emotional distress. In response, she has decided to take a break from communicating with him to focus on her own well-being and recovery. The patient has been relying on her daughters and other supportive individuals in her life for emotional support. The patient describes feelings of hopelessness and a loss of interest in activities she once enjoyed. She has been struggling with self-care, including not showering for extended periods and staying in bed for weeks at a time. Her emotional state has been further affected by a history of accidents and health issues, including a potential shoulder tear, RSV, and fluctuating blood pressure. In an effort to improve her situation, the patient is working on setting goals and using a daily shoe lay out planner with affirmations to help regain a sense of control and purpose. She is planning to engage in self-care activities, such as getting a facial, massage, and spending time with her daughter. The patient is also considering returning to the gym and reconnecting with friends to help improve her mental health. * Behavioral History: P ast psychiatric Hospitalization:No. H istory of suicidal attempt?:No. * Family History: F ather: , None. M aternal Aunt: None. M aternal Uncle: None. M other: , None. M aternal Grandfather: None. M aternal Grandmother: None. B kori: Alcohol Abuse. D shannan: alive, Anxiety Disorder,PTSD,Bipolar Disorder. 4 brother(s) . 2 daughter(s) . . One brother is . * Social History: T obacco Use: T obacco Control (Standard) T obacco use: C urrent smoker, H ow often do you smoke cigarettes? E very day, H ow many cigarettes a day do you smoke? 5 or less, H ow soon after you wake up do you smoke your first cigarette? 6 -30 minutes, A re you interested in quitting? R emi to quit. D rug/Alcohol: D rugs H ave you used drugs other than those for medical reasons in the past 12 months??No. A HEIDY-C (Standard) D id you have a drink containing alcohol in the past year? Y es, H ow often did you have six or more drinks on one occasion in the past year? 2 to 4 times a month (2 points), H ow many drinks did you have on a typical day when you were drinking in the past year? 3 or 4 drinks (1 point), H ow often did you have a drink containing alcohol in the past year? 2 to 3 times a week (3 points), P oints 6 . M iscellaneous: S afety issues A re there any firearms in the house? N o. 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 * Examination: G eneral Examination: M ental Status Examination: Patient exhibited signs of depression, characterized by prolonged periods of staying in bed, neglecting personal hygiene (not showering for seven days), and expressing feelings of merely existing rather than living. The patient reported stress due to personal and familial issues but showed resilience by maintaining sobriety for a month and attending Alcoholics Anonymous meetings. Emotional distress was apparent in the patient's recounting of familial conflicts and personal losses. Physical Examination: The patient reported a potential shoulder tear, with a recent doctor's appointment in [place] on Monday, where an MRI was recommended to confirm the diagnosis. Diagnostic Test Results and Labs: An MRI was recommended for a suspected shoulder tear, as discussed during a recent doctor's visit on Monday. The patient has a significant medical history of an episode of sudden atrial fibrillation that led to hospitalization. During this event, the patient was started on Xarelto, associated with a drop in hemoglobin from 13 to 8 within 24 hours. P sychiatry: Appearance: w ell-groomed. Abnormal body movements: n one. Affect / mood: d epressed, crying. Aggression: l ow. Anger control: g ood. Attention: n ormal in conversation. Attitude: c ooperative. Homicidal ideation: n one. Suicidal ideation: n one. Memory status: n o impairment noted. Degree of awareness of surroundings: w ithin normal limits.? Delusions: n o. Hallucinations: n o. Impulse control: g ood. Insight: g ood. Intellectual functioning: n o impairment noted. Judgement: g ood. Orientation: a wake, alert and oriented x 3. Perceptual disorders: n o perceptual disorder noted. Psychomotor activity: w ithin normal range. Speech / language: n ormal rate, volume, and articulation (RVR). Thought content: a ppropriate. Thought process: i ntact. Assessment: * Assessment: 1. M susana depressive disorder, recurrent severe without psychotic features - F33.2 (Primary)? 2. G eneralized anxiety disorder - F41.1 3 . A lcohol abuse - F10.10 4 . P TSD (post-traumatic stress disorder) - F43.10 Depression Continue with weekly therapy sessions to address underlying issues. Utilize a daily shoe lay out planner incorporating affirmations and goals to foster a positive mindset. Engage in social activities and maintain connections with supportive friends and family members. Assess progress regularly and consider the introduction of medication management if deemed necessary. Alcohol Use Disorder Persist in attending AA meetings and collaborating closely with a sponsor. Emphasize the critical importance of sobriety and the avoidance of known triggers. Regularly monitor progress towards maintaining long-term sobriety. Family Conflict Set clear boundaries with brother Gilmar, communicating the need for personal space effectively. Focus on nurturing relationships with supportive family members and friends. Develop and implement healthy communication strategies to address and resolve family conflicts. Grief and Loss Encourage active engagement in the grieving process, including organizing personal belongings and considering memorial options. Find meaningful ways to honor and remember her , such as creating memory pillows. Monitor the patient's journey through grief and the adjustment to life changes post-loss. Shoulder Pain and Possible Tear Proceed with an MRI to evaluate the extent of the potential tear. Consult with an windows server specialist for a comprehensive evaluation and to outline a treatment strategy. Promote engagement in suitable physical activities and explore affordable exercise options like walking or gym memberships. Anxiety Utilize grounding techniques, such as the use of lavender incense, to mitigate stress before anticipated stressful events. Support the development of effective coping strategies for anxiety management. Continuously evaluate anxiety levels and consider the integration of medication management as necessary. Legal Issues (DUI) Attend the scheduled court appointment to address the DUI charge responsibly. Prepare a transportation plan in anticipation of a possible license suspension. Monitor the impact of legal challenges on mental health and overall well-being. Follow-up: Arrange a follow-up appointment for next Monday to review the patient's progress and continue addressing the identified issues. Plan: * Behavioral Health Treatment Plan: I mported Date:02/29/2024 03:29 PM Imported By:Arcelia Tripp Term Therapy ProgramStrengthsRelationships, such as having family or friends who support the patient.Self-awareness of weakness, barrier, and triggersProblem/Goal/Objective/InterventionGroup1: Adult Psychotherapy 5eProblem 1:Unipolar DepressionICDMajor depressive disorder, recurrent severe without psychotic featuresBehavioral DefinitionHistory of chronic or recurrent depression for which the client has taken antidepressant medication, been hospitalized, had outpatient treatment, or had a course of electroconvulsive therapy.Feelings of hopelessness, worthlessness, or inappropriate guilt.Social withdrawal.Lack of energy.Sleeplessness or hypersomnia.Diminished interest in or enjoyment of activities.Decrease or loss of appetite.Depressed or irritable mood.GoalRecognize, accept, and cope with feelings of depression. Progress Start Date Target Date Assigned To Priority Statu s 2% 2024-01-18 2024-04-17 Arcelia Tripp 0 Open Objective* Learn and implement behavioral strategies to overcome depression. Progress Start Date Target Date Assigned To Status 2% 2024-01-18 2024-04-17 Arcelia Tripp Intervention* Conduct Cognitive-Behavioral Therapy (see Cognitive Behavior Therapy by Davis; Overcoming Depressionby Ceasar et al.), beginning with helping the client learn the connection among cognition, depressive feelings, and actions. Start Date Target Date Assigned To Status 2024-01-18 2024-04-17 Arcelia Tripp * Treatment: * Procedure Codes: 9 0834 PSYCHOTHERAPY W/PATIENT 45 MINUTES, 29654 BEHAV ASSMT W/SCORE & DOCD/STAND INSTRUMENT * Follow Up: 1 Week * Billing Information: * Visit Code: * Procedure Codes: 75259 PSYCHOTHERAPY W/PATIENT 45 MINUTES. 76757 BEHAV ASSMT W/SCORE & DOCD/STAND INSTRUMENT. 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
--- OUTSIDE RECORDS SUMMARY | 2024-04-22 10:54 | XMS_ITS | Encounter Summary ---
Author Organization [facility] Address [address] [place] [address] Care Team Providers Care Trainer Name Role Phone Yancy Guerrero MD Primary Care Provider + Encounter Details Date Type Department Care Team (Latest Contact Info) Description 01/24/[address] [facility] Tod Cifuentes MD [address] [facility] [address] [place] [address] Other Screening Mammogram Social History Tobacco Use Types Packs/Day Years Used Date Smoking Tobacco: Never Assessed Comments Unknown Sex and Gender Information Value Date Recorded Sex Assigned at Not on file Legal Sex Female 4:27 AM CONSULTING SALES MANAGER Gender Identity Not on file Sexual Orientation Not on file documented as of this encounter Plan of Treatment Not on file documented as of this encounter Procedures Procedure Name Priority Date/Time Associated Diagnosis Comments MAMMO SCREEN BILAT W OR WO CAD Routine 01/24/2008 9:19 AM CONSULTING SALES MANAGER documented in this encounter Results * MAMMO DIGITAL SCREEN BILAT (01/24/2008 9:19 AM CONSULTING SALES MANAGER) Anatomical Region Laterality Modality Breast Bilateral Other 01/24/2008 9:19 AM CONSULTING SALES MANAGER Narrative 01/25/2008 7:03 PM CONSULTING SALES MANAGER [facility] [address] [place], [place] [address] Admit Date: 01/24/2008 JULI KOO Sex: F Admit Prov: TOD DALLAS Date: 1960 Primary Care Prov: PCP, UNKNOWN CMRN: [id number] [id number] [facility] Ordering Prov: TOD DALLAS Accession Number: [id number] Interpretation BILATERAL SCREENING DIGITAL MAMMOGRAMS WITH COMPUTER ASSISTED DIAGNOSIS 01/24/2008 History: Annual screening study. Comparison is made to 05/02/03. The images were reviewed using the CAD system. The breast parenchyma is heterogeneously dense. No new dominant masses, suspicious calcifications or areas of parenchymal asymmetry or distortion are identified. Impression: Stable screening mammogram Recommend routine followup Overall assessment: BIRADS category 1 - Negative Assessment BIRADS: 1-Negative Recommendation: Normal interval follow-up Dictated by: OLENA CHRISTY Electronically signed by: OLENA CHRISTY 01/25/2008 19:02 Transcribed: 01/24/2008 18:23 AMK Procedure Note Olena Christy - 01/25/2008 [id number] [place], [place] [address] Admit Date: 01/24/2008 HANANEJULI Sex: F Admit Prov: TOD DALLAS Date: 1960 Primary Care Prov: PCP, UNKNOWN CMRN: [id number] [facility] [id number] [facility] Ordering Prov: TOD DALLAS Interpretation BILATERAL SCREENING DIGITAL MAMMOGRAMS WITH COMPUTER ASSISTEDDIAGNOSIS 01/24/2008 History: Annual screening study. Comparison is made to 05/02/03. The images were reviewed using theCAD system. The breast parenchyma is heterogeneously dense. No newdominant masses, suspicious calcifications or areas of parenchymal asymmetryor distortion are identified. Impression: Stable screening mammogram Recommend routine followup Overall assessment: BIRADS category 1 - Negative Assessment BIRADS: 1-Negative Recommendation: Normal interval follow-up Dictated by: OLENA CHRISTY Electronically signed by: OLENA CHRISTY 01/25/2008 19:02 Transcribed: 01/24/2008 18:23 AMK Tod Dallas MD MAMMO ORDERABLES Final Result documented in this encounter Visit Diagnoses Diagnosis Other screening mammogram documented in this encounter Care Teams Trainer Relationship Specialty Start Date End Date Yancy Guerrero MD [address] [place] [address] PCP - General Internal Medicine 09/22/14 documented as of this encounter
--- OUTSIDE RECORDS SUMMARY | 2024-04-22 10:54 | XMS_ITS | Encounter Summary ---
Author Organization [facility] Address [address] [place] [address] Care Team Providers Care Olap Developer Name Role Phone Yancy Guerrero MD Primary Care Provider + Encounter Details Date Type Department Care Team (Latest Contact Info) Description 03/10/2006 Outpatient Historical HIS [facility] SRIDHAR Velázquez, [place] [address] [facility] [address] [place] [address] Lump or Mass in Breast (Primary Dx) Social History Tobacco Use Types Packs/Day Years Used Date Smoking Tobacco: Never Assessed Comments Unknown Sex and Gender Information Value Date Recorded Sex Assigned at Not on file Legal Sex Female 4:27 AM ATTORNEY AT LAW Gender Identity Not on file Sexual Orientation Not on file documented as of this encounter Plan of Treatment Not on file documented as of this encounter Visit Diagnoses Diagnosis Lump or mass in breast- Primary documented in this encounter Care Teams Olap Developer Relationship Specialty Start Date End Date Yancy Guerrero MD [address] [place] [address] PCP - General Internal Medicine 09/22/14 documented as of this encounter
--- OUTSIDE RECORDS SUMMARY | 2024-04-22 10:54 | XMS_ITS | Encounter Summary ---
Author Organization [facility] Address [address] [place] [address] Care Team Providers Care Folder Machine Adjuster Name Role Phone Yancy Guerrero MD Primary Care Provider + Encounter Details Date Type Department Care Team (Latest Contact Info) Description 05/02/2003 Outpatient Historical HIS [facility] Tod Cifuentes MD [address] [facility] [address] [place] [address] SCREENING MAMM-MAILG NEOPL-OTHER (Primary Dx) Social History Tobacco Use Types Packs/Day Years Used Date Smoking Tobacco: Never Assessed Comments Unknown Sex and Gender Information Value Date Recorded Sex Assigned at Not on file Legal Sex Female 4:27 AM RETRIEVAL SPECIALIST Gender Identity Not on file Sexual Orientation Not on file documented as of this encounter Plan of Treatment Not on file documented as of this encounter Visit Diagnoses Diagnosis Other screening mammogram- Primary documented in this encounter Care Teams Folder Machine Adjuster Relationship Specialty Start Date End Date Yancy Guerrero MD [address] [place] [address] PCP - General Internal Medicine 09/22/14 documented as of this encounter
--- OUTSIDE RECORDS SUMMARY | 2024-04-22 10:54 | XMS_ITS | CONTINUITY OF CARE DOCUMENT ---
Author Name emerald corbin Address Unknown Organization [facility] Address [address] [place] [address] [address] [place] [address] Phone [phone] Care Team Providers Care Web Merchant Name Role Phone Prabhu ROSARIO, Tha Unavailable INSURANCE PROVIDERS Payer name Policy type / Coverage type [place] red constitution party ID [facility] [facility] [employer] insurance [employer] [id number]
--- OUTSIDE RECORDS SUMMARY | 2024-04-22 10:54 | XMS_ITS | Encounter Summary ---
Author Organization [facility] Address [address] [place] [address] Care Team Providers Care Energy Manager Name Role Phone Yancy Guerrero MD Primary Care Provider + Encounter Details Date Type Department Care Team (Latest Contact Info) Description 05/10/2004 Outpatient Historical HIS [facility] Tod Cifuentes MD [address] [facility] [address] [place] [address] SCREENING MAMM-MAILG NEOPL-OTHER (Primary Dx) Social History Tobacco Use Types Packs/Day Years Used Date Smoking Tobacco: Never Assessed Comments Unknown Sex and Gender Information Value Date Recorded Sex Assigned at Not on file Legal Sex Female 4:27 AM OIL PUMP STATION OPERATOR 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
--- OUTSIDE RECORDS SUMMARY | 2024-04-22 10:54 | XMS_ITS | Encounter Summary ---
Author Organization [facility] Address [address] [place] [address] Phone Care Team Providers Care Bronc Breaker Name Role Phone Yancy Guerrero MD Primary Care Provider + [phone] Lupillo Reyes MD Unavailable [phone] Encounter Details Date Type Department Care Team (Latest Contact Info) Description 04/10/2013 Orders Only [facility] Wenyd Choudhary RN [address] [facility] [address] [place] [address] Social History Tobacco Use Types Packs/Day Years Used Date Smoking Tobacco: Never Assessed Comments Unknown Sex and Gender Information Value Date Recorded Sex Assigned at Not on file Legal 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 CHILD CARE ASSISTANT Gender Identity Not on file Sexual Orientation Not on file documented as of this encounter Plan of Treatment Not on file documented as of this encounter Procedures Procedure Name Priority Date/Time Associated Diagnosis Comments CARDIOLOGY DOCUMENT SCAN 04/10/2013 documented in this encounter Results * Cardiology Document Scan (04/10/2013) Anatomical Region Laterality Modality Other us Wendy Choudhary RN CV CARDIAC SERVICES P ROCEDURES Final Result documented in this encounter Visit Diagnoses Not on filedocumented in this encounter Additional Health Concerns Infection Onset Date Last Indicated Resolved Time COVID19 05/14/2019 05/14/2019 05/15/2019 11:2 1 AM CDT COVID: Suspected 12/06/2019 12/06/2019 12/20/2019 3:05 AM CHILD CARE ASSISTANT COVID: Suspected 01/14/2021 01/14/2021 01/14/2021 9:43 PM CHILD CARE ASSISTANT COVID: Suspected 01/17/2021 01/17/2021 01/18/2021 5:33 AM CHILD CARE ASSISTANT COVID: Suspected 08/06/2021 08/06/2021 08/07/2021 3:05 AM CDT COVID: Suspected 08/06/2021 08/06/2021 08/07/2021 3:18 AM CDT COVID19 08/06/2021 08/06/2021 08/16/2021 3:05 AM CDT COVID: Recovered Comment:Added based on recent COVID infection. 08/16/2021 08/16/2021 12/14/2021 3:05 AM C DT COVID: Suspected 09/23/2021 09/23/2021 09/23/2021 10:56 PM CDT COVID: Suspected 09/29/2021 09/29/2021 09/29/2021 10:32 PM CDT COVID: Suspected 12/24/2021 12/25/2021 12/25/2021 3:05 AM CHILD CARE ASSISTANT COVID: Suspected 12/25/2021 12/25/2021 12/26/2021 3:05 AM CHILD CARE ASSISTANT COVID: Suspected 12/25/2021 12/25/2021 12/26/2021 3:49 PM CHILD CARE ASSISTANT documented as of this encounter Care Teams Bronc Breaker Relationship Specialty Start Date End Date Yancy Guerrero MD [address] [place] [address] PCP - General 05/22/16 Lupillo Reyes MD [address] [address] Consulting Physician Orthopedic Surgery 07/26/22 documented as of this encounter
--- OUTSIDE RECORDS SUMMARY | 2024-04-22 10:54 | XMS_ITS ---
Author Organization [facility] Address [address] [facility] [address] [place] [address] Care Team Providers Care Template Maker Name Role Phone Cesar ROSARIO, Yancy Primary Care Provider Arcelia Mullins [phone] Social History Sex Assigned At : Social History Observation Description Sex Assigned At Female Encounters Encounter Location Date Provider Diagnosis [facility], [address] [facility] [address] [place] [address] 03/06/2024 Arcelia Tripp Plan Of Treatment No Information Progress Notes * Camille KOODOB: [birth year] (63 yo F)Acc No.[id number]:03/06/2024 Patient: Anabel BARRCamille CROW Provider: Ami Tripp :1960 A ge:63 Y S ex:Female Date:03/06/2024 Phone: Address:[address] [place], [place] [id number] Pcp:Yancy Guerrero MD Data: * Chief Complaints: * Assessment: Plan: * Treatment: * Billing Information: * Visit Code: * Procedure Codes: * Electronic signature of Roman Tripp LCPC on 04/22/2024 at 10:53 AM CDT Sign off status: Pending Signatures: No Ad Hoc Signature Added * Provider: Ami Tripp Date: 0 03/06/2024 Generated for Veronika tovar/Dipika/eTransminderjit on: 0 04/22/2024 10:53 AM CDT
--- OUTSIDE RECORDS SUMMARY | 2024-04-22 10:54 | XMS_ITS ---
Author Organization [facility] Address [address] [place] [address] [address] [facility] [address] [place] [address] Care Team Providers Care Ruffling Machine Operator Name Role Phone Yancy Guerrero MD Primary Care Provider Arcelia Mullins [phone] REASON FOR VISIT Cancel appt Social History Sex Assigned At : Social History Observation Description Sex Assigned At Female Encounters Encounter Location Date Provider Diagnosis [address] [address] 03/06/2024 Arcelia Tripp Plan Of Treatment No Information Progress Notes * Camille KOODOB: [birth year] (63 yo F)Acc No.[id number]:03/06/2024 Patient: Prachi MARTINEZbandar Fong :1960 A ge:63 Y S ex:Female Phone: Address:[address] [place] [address], [address] * true * Date: Generated for Kristoferi guy/Dipika/eTransmitting on: 0 04/22/2024 10:53 AM CDT
--- OUTSIDE RECORDS SUMMARY | 2024-04-22 10:54 | XMS_ITS | Encounter Summary ---
Author Organization [facility] Address [address] [place] [address] Care Team Providers Care Motorboat Mechanic Helper Name Role Phone Yancy Guerrero MD Primary Care Provider + Encounter Details Date Type Department Care Team (Latest Contact Info) Description 05/26/2005 Outpatient Historical HIS [facility] Tod Cifuentes MD [address] [facility] [address] [place] [address] Other Screening Mammogram (Primary Dx) Social History Tobacco Use Types Packs/Day Years Used Date Smoking Tobacco: Never Assessed Comments Unknown Sex and Gender Information Value Date Recorded Sex Assigned at Not on file Legal Sex Female 4:27 AM BUSINESS ATTORNEY Gender Identity Not on file Sexual Orientation Not on file documented as of this encounter Plan of Treatment Not on file documented as of this encounter Visit Diagnoses Diagnosis Other screening mammogram- Primary documented in this encounter Care Teams Motorboat Mechanic Helper Relationship Specialty Start Date End Date Yancy Guerrero MD [address] [place] [address] PCP - General Internal Medicine 09/22/14 documented as of this encounter
--- OUTSIDE RECORDS SUMMARY | 2024-04-22 10:54 | XMS_ITS | Encounter Summary ---
Author Organization [facility] Address [address] [place] [address] Phone Care Team Providers Care Mapping Specialist Name Role Phone Yancy Guerrero MD Primary Care Provider + [phone] Lupillo Reyes MD Unavailable [phone] Encounter Details Date Type Department Care Team (Latest Contact Info) Description 11/25/2010 Orders Only [facility] Wendy Choudhary, ISAIAS [address] [facility] [address] [place] [address] Social History Tobacco Use Types Packs/Day Years Used Date Smoking Tobacco: Never Assessed Comments Unknown Sex and Gender Information Value Date Recorded Sex Assigned at Not on file Legal 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 OCCUPATIONAL HEALTH COORDINATOR Gender Identity Not on file Sexual Orientation Not on file documented as of this encounter Plan of Treatment Not on file documented as of this encounter Procedures Procedure Name Priority Date/Time Associated Diagnosis Comments CARDIOLOGY DOCUMENT SCAN 11/25/2010 documented in this encounter Results * Cardiology Document Scan (11/25/2010) Anatomical Region Laterality Modality Other us Wendy hCoudhary RN CV CARDIAC SERVICES P ROCEDURES Final Result documented in this encounter Visit Diagnoses Not on filedocumented in this encounter Additional Health Concerns Infection Onset Date Last Indicated Resolved Time COVID19 05/14/2019 05/14/2019 05/15/2019 11:2 1 AM CDT COVID: Suspected 12/06/2019 12/06/2019 12/20/2019 3:05 AM OCCUPATIONAL HEALTH COORDINATOR COVID: Suspected 01/14/2021 01/14/2021 01/14/2021 9:43 PM OCCUPATIONAL HEALTH COORDINATOR COVID: Suspected 01/17/2021 01/17/2021 01/18/2021 5:33 AM OCCUPATIONAL HEALTH COORDINATOR COVID: Suspected 08/06/2021 08/06/2021 08/07/2021 3:05 AM CDT COVID: Suspected 08/06/2021 08/06/2021 08/07/2021 3:18 AM CDT COVID19 08/06/2021 08/06/2021 08/16/2021 3:05 AM CDT COVID: Recovered Comment:Added based on recent COVID infection. 08/16/2021 08/16/2021 12/14/2021 3:05 AM C DT COVID: Suspected 09/23/2021 09/23/2021 09/23/2021 10:56 PM CDT COVID: Suspected 09/29/2021 09/29/2021 09/29/2021 10:32 PM CDT COVID: Suspected 12/24/2021 12/25/2021 12/25/2021 3:05 AM OCCUPATIONAL HEALTH COORDINATOR COVID: Suspected 12/25/2021 12/25/2021 12/26/2021 3:05 AM OCCUPATIONAL HEALTH COORDINATOR COVID: Suspected 12/25/2021 12/25/2021 12/26/2021 3:49 PM OCCUPATIONAL HEALTH COORDINATOR documented as of this encounter Care Teams Mapping Specialist Relationship Specialty Start Date End Date Yancy Guerrero MD [address] [place] [address] PCP - General 05/22/16 Lupillo Reyes MD [address] [address] Consulting Physician Orthopedic Surgery 07/26/22 documented as of this encounter
--- OUTSIDE RECORDS SUMMARY | 2024-04-22 10:54 | XMS_ITS | Continuity of Care Document ---
Author Organization [facility] Address [address] [facility] [address] [place] [address] Phone Care Team Providers Care Rooms Director Name Role Phone Lupillo Reyes MD Unavailable [...] Date Provider Providers Copied on Encounter [facility], [address], [id number], [place] [phone] [facility] No Information [address] [address], [place], [place], [id number] , [place]. tel: [phone] [facility], [address], [id number], [place] tel:[phone] [facility] No Information 4 [address]. [address], [id number] , [place]. tel: [phone] Office/outpat ient visit,est, [facility], [address], [id number], [place] [phone] Rt Shoulder (chief complaint) Complete rotatr-cuff tear/ruptr of r shoulder, not trauma 4 [address]. [address], [id number] , [place]. tel: [phone] Office/outpat ient visit,est, [facility], [address], [id number], [place] tel:[phone] Right shoulder (chief complaint) Complete rotatr-cuff tear/ruptr of r shoulder, not trauma 3 [address]. [address] [facility] [address], [place], [place], [id number] , [place]. tel: [phone] Office/outpat ient visit,est, [facility], [address], [id number], [place] tel:[phone] Follow up (chief complaint) Complete rotatr-cuff tear/ruptr of r shoulder, not trauma 3 [address]. [address] [facility], [address] [address], [place], [place], [id number] , [place]. tel: [phone] Office/outpat ient visit,est, [facility], [address] [address], [place], [place], [id number], [place] tel:[phone] [facility] Post op check up (chief complaint) Complete rotatr-cuff tear/ruptr of r shoulder, not trauma 3 [address]. [address] [facility], [address] [address], [place], [place], [id number] , [place]. tel: [phone] [facility], [address] [place] [address], [id number], [place] tel:[phone] [facility] Right shoulder (chief complaint) Complete rotatr-cuff tear/ruptr of r shoulder, not trauma 3 [address]. [address] [facility], [address] [address], [place], [place], [id number] , [place]. tel: [phone] [facility], [address], [id number], [place] tel:[phone] [facility] Right shoulder (chief complaint) Complete rotatr-cuff tear/ruptr of r shoulder, not trauma 3 [address]. [address] [facility], [address], [id number] , [place]. tel: [phone] [facility], [address] [place] [address], [id number], [place] tel:[phone] [facility] No Information 3 [address]. [address] [facility], [address] [address], [place], [place], [id number] , [place]. tel: [phone] [facility], [address] [place] [address], [id number], [place] tel:[phone] [facility] Complete rotatr-cuff tear/ruptr of r shoulder, not trauma 3 [address]. [address] [facility], [place], [place], [id number] , [place]. tel:[phone] Office consultation, moderate [facility], [address] [facility], [place], [place], [id number], [place] tel:[phone] [facility] Right shoulder muscle tear/pain (chief complaint) Complete rotatr-cuff tear/ruptr of r shoulder, not trauma 3 Eric Lupillo. [address] [facility], [address], [place], [place], [id number] , [place]. [phone] Referring Provider: Lupillo Mueller, [address] [facility] [address], [place], [address] . tel:[phone] Family History Family Member Type Diagnosis Age [...] type Covered constitution party ID Authoriza tion(s) [facility] Workers Compensation Adm WC [id number] Social History Type Description Quantity Date [...]
--- OUTSIDE RECORDS SUMMARY | 2024-04-22 10:54 | XMS_ITS | Patient Health Record ---
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 [id number] Camille Hendricks Self - patient is the insured Medical (General) History Medical History History ICD Code Past Psychiatric History: Anxiety Disord er,PTSD,Major Depressive Episode abdominal aortic aneurysm: No atrial fibrillation: Yes chronic fatigue syndrome: No essential tremor: No hyperlipidemia: Yes hypertension: Yes Parkinson's disease: No restless leg syndrome: No stroke: No subdural hematoma: No type 1 diabetes mellitus: No type 2 diabetes mellitus: No vitamin B12 deficiency: No
[2024-04-22 11:17] LABS: Vitamin B12 424 pg/mL (193-986)
[2024-04-23 11:08] LABS: Vitamin D 25 Hydroxy 24 ng/mL (30-100)
[2024-04-25 21:34] LABS: Vitamin B1 15 nmol/L (8-30)
== END 2024-04-22 09:37 | disposition home or self-care (01) ==
LOC: CHSLAB 09:38
PROVIDERS: PCP Internal Medicine; Visit Provider Internal Medicine
DX: E53.8 Deficiency of other specified B group vitamins (principal); E78.2 Mixed hyperlipidemia; I10 Essential (primary) hypertension; I48.0 Paroxysmal atrial fibrillation; G62.9 Polyneuropathy, unspecified; E11.9 Type 2 diabetes mellitus without complications
CPT/HCPCS: 36415; 80053; 80061; 81003; 82306; 82550; 82607; 83036; 84425; 84439; 84443; 85025

== ENCOUNTER 2024-05-16 10:52 | Outpatient (CLI) | payer OTHER, SELFPAY ==
--- NOTE | ~2024-05-16 | XR_ITS ---
CHEST RADIOGRAPH, PA AND LATERAL CLINICAL HISTORY: cough/chills/RLL crept . COMPARISON: 07/19/2023 TECHNIQUE: PA and lateral views of the chest. FINDINGS The cardiomediastinal silhouette is unremarkable. The lungs are clear. Prior fracture deformity within the posterior lateral right ribs, unchanged from prior IMPRESSION: No focal infiltrate or effusion. Reviewed, dictated and finalized at location A.
[2024-05-16 11:06] LABS: Hematocrit 40.2 % (35.0-49.0); Hemoglobin 13.6 g/dL (12.0-15.0); Mean Corpuscular HGB Conc 33.8 g/dL (32-36); Mean Corpuscular Hemoglobin 31.9 pg (27.0-31.0); Mean Corpuscular Volume 94.1 fL (78.0-102.0); Mean Platelet Volume 9.2 fl (9.2-11.8); Platelet Count Result 252 K/mm3 (150-420); Red Blood Count 4.27 M/mm3 (4.20-5.40); Red Cell Distribution Width 14.1 % (11.6-14.4); White Blood Count 4.9 K/mm3 (4.8-10.8)
--- OUTSIDE RECORDS SUMMARY | 2024-05-16 11:48 | XMS_ITS | Encounter Summary ---
Author Organization [facility] Address [address] [place] [address] Phone Care Team Providers Care Wheelchair Van Operator First Responder Name Role Phone Yancy Guerrero MD Primary Care Provider + [phone] Lupillo Reyes MD Unavailable [phone] Encounter Details Date Type Department Care Team (Latest Contact Info) Description 03/28/2023 Orders Only [facility] Wendy Choudhary, RN 6[address] [facility] [address] [place] [address] Social History Tobacco Use Types [...] on file 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
--- OUTSIDE RECORDS SUMMARY | 2024-05-16 11:48 | XMS_ITS | Encounter Summary ---
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
--- OUTSIDE RECORDS SUMMARY | 2024-05-16 11:48 | XMS_ITS | Clinical Summary ---
Author Organization [facility] Address [address] [place] [address] Care Team Providers Care Mobile Mechanic Name Role Phone Yancy Guerrero MD Primary Care Provider + [phone] Lupillo Reyes MD Unavailable [phone] Allergies No known active allergies Medications citalopram [...] 03/21/2023 Assessment & Plan (03/23/2023 7:20 AM CITY TREASURER): Atenolol resumed with reasonable control Continue to hold Dyazide and losartan until outpatient follow-up HLD (hyperlipidemia) 03/21/2023 Assessment & Plan (03/22/2023 2:05 PM CITY TREASURER): Continue atorvastatin Transaminases have normalized. Depression with anxiety 03/21/2023 Assessment & Plan (03/23/2023 7:20 AM CITY TREASURER): Cont citalopram 40mg daily and lorazepam 0.5mg BID Resolved Problems Problem Noted Date Diagnosed Date Resolved Date Hypotension 03/21/2023 03/22/2023 Assessment & Plan (03/21/2023 8:09 PM CITY TREASURER): - Presenting with BP 80/50s in setting of reduced PO intake and ongoing BP meds - (+)orthostatics on presentation - Hold BP meds, check orthostatics in AM - Restart meds as needed Headache 03/21/2023 03/22/2023 Assessment & Plan (03/21/2023 8:10 PM CITY TREASURER): - Tylenol ordered; avoid NSAIDs Weakness 03/21/2023 03/23/2023 Assessment & Plan (03/22/2023 2:06 PM CITY TREASURER): TSH and B12 within acceptable limits. Monitor symptoms as blood pressure and renal function recover Nausea 03/21/2023 03/22/2023 Assessment & Plan (03/21/2023 8:10 PM CITY TREASURER): - Zofran ordered SUN (acute kidney injury) 03/21/2023 Assessment & Plan (03/23/2023 7:19 AM CITY TREASURER): Creatinine improved today Check renal function and electrolytes in outpatient follow-up Continue to hold Dyazide and losartan until outpatient follow-up. Abnormal transaminases 03/21/202303/22 Assessment & Plan (03/21/2023 8:11 PM CITY TREASURER): - Elevated in setting of recent viral infection and presumed hypovolemia - Trend in AM - if continues to be elevated consider hepatitis panel/HIV given occupation history Complete rupture of rotator cuff 07/13/2022 03/21/2023 Acute medial meniscus tear of left knee 06/25/2020 03/21/2023 Overview (06/25/2020): Added automatically from request for surgery [id number] Axillary mass, left 12/30/2016 03/21/19 24 Lipoma of forehead 11/23/2015 4 Pain in shoulder 11/12/2014 03/21/2023 Syncope 03/06/2013 03/21/2023 Encounters Date Type Department Care Team Description 04/08/2024 10:20 AM CITY TREASURER Office Visit [facility] Orthopaedic Surgery [address] [place] [address] [address]nd [address] [place] [address] Carlos Alberto Ayoub MD Impingement of right shoulder (Primary Dx) 03/14/2024 9:40 AM CITY TREASURER Office Visit [facility] Orthopaedic Surgery [address] [place] [address] 2[address] [place] [address] Carlos Alberto Ayoub MD Impingement of right shoulder (Primary Dx) 03/08/2024 11:30 AM CITY TREASURER - 03/08/2024 11:59 PM CITY TREASURER Hospital [facility]counter [facility] [address] [place] [address] Acute pain of right shoulder Discharge Disposition: Discharge to home or self care 03/08/2024 11:27 AM CITY TREASURER - 03/08/2024 11:59 PM CITY TREASURER Hospital Encounter [facility] [address] [place] [address] Acute pain of right shoulder Discharge Disposition: Discharge to home or self care 02/26/2024 1:45 PM CITY TREASURER Ancillary Procedure Radiology - [address] [place] [address] [address] [place] [address] Acute pain of right shoulder 02/26/2024 1:20 PM CITY TREASURER Office Visit [facility] Orthopaedic Surgery [address] [place] [address] 2[address] [place] [address] Carlos Alberto Ayoub MD Sprain of right shoulder, unspecified shoulder sprain type, initial encounter (Primary Dx); Acute pain of right shoulder 02/26/2024 Telephone [facility] Orthopaedic Surgery [address] [place] [address] Floor [address] [place] [address] Carlos Alberto Ayoub MD from Last 3 [...] = 0.6 oz pur e alcohol) socially [employer] Answer Date Recorded In the past 12 months has e [employer], gas, oil, or water [employer] threatened to shut off services in your [...] week 06/02/2023 How often do you attend [facility] or yarsanism services? More than 4 times per year 06/02/2023 Do you belong to any clubs o r organizations such as roman catholic groups, unions, fraternal or athletic groups, or [...] place to sleep or slept in a custodial (including now)? No 06/02/2023 Personal Safety Answer Date Recorded Have you ever been in or are you currently in a harmful physical or emotional relationship or is someone making you feel afraid or unsafe? Denies 05/31/2023 Comments No Sex and Gender Information Value Date Recorded Sex Assigned at Not on file Legal 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 CITY TREASURER Gender Identity Not on file Sexual Orientation [...] 81.6 kg (180 lb) 04/08/2024 10:29 AM CITY TREASURER Height 167.6 cm (5' 6 ) 04/08/2024 10:29 AM CITY TREASURER Body Mass Index 29.05 04/08/2024 10:29 AM CITY TREASURER Plan of Treatment Health Maintenance Due Date [...] 07/15/2020, 05/04/2020 Medical Devices Implanted Type Area Textile Machine Maintenance Mechanic Device Identifier Shelf Expiration Date Model / Serial / Lot [employer] Corkscrew Tigertail 5.5mm 14.[address] Mechanism Vent 2 Square [id number] - [id number] Implanted:Qty: 1 on 07/26/2022 by Lupillo Reyes MD at [facility] Right: Shoulder [employer] 02/13/2024 [id number] T / / [id number] [employer] Corkscrew Tigertail 5.5[address] 14[address] Mechanism Vent 2 Square [id number] - [id number] Implanted:Qty: 1 on 07/26/2022 by Lupillo Reyes MD at [facility] Right: Shoulder [employer] 11/12/2024 [id number] T / / [id number] [employer] Swivelock C 4.75mm 19.1mm Closed Eyelet Vent Plymouth Suture Ar-[id number] - [id number] Implanted:Qty: 1 on 07/26/2022 by Lupillo Reyes MD at [facility] Right: Shoulder [employer] 02/12/2026 [id number] / / [id number] Procedures Procedure Name Priority Date/Time Associated Diagnosis Comments [place] ARTHROCENTESIS ASPIR&/INJ MAJOR JT/BURSA W/O US Routine 03/14/2024 9:40 AM CITY TREASURER Impingement of right shoulder MRI SHOULDER ARTHROGRAM RIGHT W CONTRAST Schedule Routine, Read Routine (OP Routine) 03/08/2024 1:16 PM CITY TREASURER Acute pain of right shoulder INJECTION SHOULDER RIGHT ARTHRO ONLY Schedule Routine, Read Routine (OP Routine) 03/08/2024 12:26 PM CITY TREASURER Acute pain of right shoulder XR SHOULDER RIGHT 2 OR MORE VIEWS Schedule Routine, Read Routine (OP Routine) 02/26/2024 1:33 PM CITY TREASURER Acute pain of right shoulder COLONOSCOPY 07/18/2017 9:10 AM CDT from Last 3 Months or Most Recently Relevant to Health Maintenance Results * [place] ARTHROCENTESIS ASPIR&/INJ MAJOR JT/BURSA W/O US (03/14/2024 9:40 AM CITY TREASURER) Narrative Carlos Alberto Ayoub MD - 03/14/2024 9:40 AM CITY TREASURER Carlos Alberto Ayoub MD 03/14/2024 11:03 AM [...] Arthrogram Right W Contrast (03/08/2024 1:16 PM CITY TREASURER) Anatomical Region Laterality Modality Upper Extremities Right Magnetic Reson ance 03/08/2024 3:30 PM CITY TREASURER Impressions 03/08/2024 5:05 PM CITY TREASURER Postoperative changes of prior rotator cuff repair [...] Meliza Clemens MD Narrative 03/08/2024 5:05 PM CITY TREASURER EXAMINATION: 1. MR right shoulder with contrast [...] Shoulder Right Arthro Only (03/08/2024 12:26 PM CITY TREASURER) Anatomical Region Laterality Modality Shoulder Right Computed Radiogr aphy 03/08/2024 1:14 PM CITY TREASURER Impressions 03/08/2024 1:14 PM CITY TREASURER 1. Right glenohumeral joint injection under fluoroscopic for MR arthrography. Electronically signed by: Min Madrigal D.O. Narrative 03/08/2024 1:14 PM CITY TREASURER EXAMINATION: 1. Right glenohumeral joint injection 2. Fluoroscopic guidance for needle placement HISTORY: Right shoulder pain, pre MR arthrogram TECHNIQUE: The risks, benefits and alternatives were discussed with the patient. Informed consent was obtained. Prior to beginning the procedure, Capron Protocol was performed to confirm the patient's [...] was obtained. Prior to beginning the procedure, Capron Protocol was performed to confirm the patient's [...] Shoulder Right 2+ View (02/26/2024 1:33 PM CITY TREASURER) Anatomical Region Laterality Modality Upper Extremities, Shoulder Right Comp uted Radiography 02/26/2024 2:28 PM CITY TREASURER Impressions 02/26/2024 2:28 PM CITY TREASURER Normal right shoulder radiographs. Electronically signed by: Jesse Stone MD Narrative 02/26/2024 2:28 PM CITY TREASURER EXAMINATION: XR SHOULDER RIGHT 2 OR MORE [...] Locke MD - 07/18/2017 9:10 AM CDT [facility] Patient Name: Camille Shultz Procedure Date: 07/18/2017 9:10 AM Date of : 1960 Admit Type: Outpatient Age: 57 Gender: Female Attending MD: Mike Locke MD Room: [facility] ENDOSCOPY CAPSULE Note Status: Finalized Patient Profile: [...] passed under direct vision.The Pediatric Colonoscope [id number]-[id number] was introduced through the anus and advanced [...] 9:10 AM Procedure Code(s): --- Professional --- 59032, Colonoscopy, flexible; diagnostic, including collection of specimen(s) by brushing or washing, when performed (separateprocedure) Diagnosis Code(s): --- Professional --- Z86.010, Personal history of colonic polyps K64.8, Other hemorrhoids K57.30, Diverticulosis of large intestine without perforation orabscess without bleeding CPT copyright 2017 [employer]. All rights reserved. The codes documented in this report are preliminary and upon global sales executive reviewmay be revised to meet current compliance requirements. Recognized by the [employer] for promoting quality in endoscopy Mike Locke MD ENDOSCOPY PROCEDURES Final Result from Last 3 Months or Most Recently Relevant to Health Maintenance Insurance [facility] [id number] [place] [address] [id number] [place] [address] CMR WORKERS COMPENSATION GENERIC [facility] Advance Directives For more information, please contact: [phone] * Full Code (Latest Code Status on File) Date Activated Date Inactivated Comments 05/31/2023 7:40 PM 06/03/2023 9:50 PM * Full Code Date Activated Date Inactivated Comments 03/21/2023 8:03 PM 03/23/2023 12:55 PM * Full Code Date Activated Date Inactivated Comments 09/01/2020 7:59 AM 09/01/2020 1:49 PM * Full Code Date Activated Date Inactivated Comments 07/18/2017 8:32 AM 07/18/2017 12:39 PM Care Teams Mobile Mechanic Relationship Specialty Start Date End Date Yancy Guerrero MD [address] [place] [address] PCP - General 05/22/16 Lupillo Reyes MD [address] [address] Consulting Physician Orthopedic Surgery 07/26/22
--- OUTSIDE RECORDS SUMMARY | 2024-05-16 11:48 | XMS_ITS | Encounter Summary ---
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
--- OUTSIDE RECORDS SUMMARY | 2024-05-16 11:48 | XMS_ITS | Encounter Summary ---
Author Organization [facility] Address [address] [place] [address] Phone Care Team Providers Care Heat Treat Worker Name Role Phone Yancy Guerrero MD Primary Care Provider + [phone] Lupillo Reyes MD Unavailable [phone] Encounter Details Date Type Department Care Team (Latest Contact Info) Description 04/13/2023 Orders Only [facility] Wendy Choudhary, RN 15[address] [facility] [address] [place] [address] Social History Tobacco Use Types [...] on file 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
--- OUTSIDE RECORDS SUMMARY | 2024-05-16 11:48 | XMS_ITS | Encounter Summary ---
Author Organization 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 100 [place] [address] Consulting Physician Orthopedic Surgery 07/26/22 documented as of this encounter
--- OUTSIDE RECORDS SUMMARY | 2024-05-16 11:48 | XMS_ITS | Encounter Summary ---
Author Organization [facility] Address [address] [place] [address] Phone Care Team Providers Care Bait Packer Name Role Phone Yancy Guerrero MD Primary Care Provider + [phone] Lupillo Reyes MD Unavailable [phone] Encounter Details Date Type Department Care Team (Latest Contact Info) Description 04/03/2023 Orders Only [facility] Wendy Choudhary, RN [address] [facility] [address] [place] [address] Social History Tobacco Use Types [...] on file Legal 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
--- OUTSIDE RECORDS SUMMARY | 2024-05-16 11:49 | XMS_ITS ---
Author Organization [facility] Address [address] [place] [address] [address] Care Team Providers Care Tool Designer Apprentice Name Role Phone Yancy Guerrero MD Primary Care Provider Arcelia Mullins [phone] REASON FOR VISIT Cancel appt Social History Sex Assigned At : Social History Observation Description Sex Assigned At Female Encounters Encounter Location Date Provider Diagnosis [address] [address] 03/06/2024 Arcelia Tripp Plan Of Treatment No Information Progress Notes * Camille KOODOB: [birth year] (63 yo F)Acc No.[id number]:03/06/2024 Patient: Prachi MARTINEZbandar Fong :1960 A ge:63 Y S ex:Female Phone: Address:[address] [place] [address], [address] * true * Date: Generated for Kristoferi guy/Dipika/eTransmitting on: 0 05/16/2024 11:49 AM CDT
--- OUTSIDE RECORDS SUMMARY | 2024-05-16 11:49 | XMS_ITS | Encounter Summary ---
Author Organization [facility] Address 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
--- OUTSIDE RECORDS SUMMARY | 2024-05-16 11:49 | XMS_ITS | Encounter Summary ---
Author Organization [facility] Address [address] [place] [address] Care Team Providers Care Airport Skilled Maintenance Supervisor Name Role Phone Yancy Guerrero MD Primary Care Provider + Encounter Details Date Type Department Care Team (Latest Contact Info) Description 01/24/2008 Outpatient Historical HIS [facility] Tod Cifuentes MD [address] [facility] [address] [place] [address] Other Screening Mammogram Social History Tobacco Use Types Packs/Day Years Used Date Smoking Tobacco: Never Assessed Comments Unknown Sex and Gender Information Value Date Recorded Sex Assigned at Not on file Legal Sex Female 4:27 AM SUPERVISOR GATE SERVICES Gender Identity Not on file Sexual Orientation Not on file documented as of this encounter Plan of Treatment Not on file documented as of this encounter Procedures Procedure Name Priority Date/Time Associated Diagnosis Comments MAMMO SCREEN BILAT W OR WO CAD Routine 01/24/2008 9:19 AM SUPERVISOR GATE SERVICES documented in this encounter Results * MAMMO DIGITAL SCREEN BILAT (01/24/2008 9:19 AM SUPERVISOR GATE SERVICES) Anatomical Region Laterality Modality Breast Bilateral Other 01/24/2008 9:19 AM SUPERVISOR GATE SERVICES Narrative 01/25/2008 7:03 PM SUPERVISOR GATE SERVICES [facility] [address] [place], [place] [address] Admit Date: 01/24/2008 JULI KOO Sex: F Admit Prov: TOD DALLAS Date: 1960 Primary Care Prov: PCP, UNKNOWN CMRN: [id number] [id number] IM[facility] SERVICES Ordering Prov: TOD DALLAS Accession Number: [id number] Interpretation BILATERAL SCREENING DIGITAL MAMMOGRAMS WITH COMPUTER [...] AMK Procedure Note Olena Christy - 01/25/2008 [place] [place], [place] [address] Admit Date: 01/24/2008 HANANEJULI Sex: F Admit Prov: TOD DALLAS Date: 1960 Primary Care Prov: PCP, UNKNOWN CMRN: [id number] [id number] IMAGING SERVICES Ordering Prov: TOD DALLAS Interpretation [...] mammogram documented in this encounter Care Teams Airport Skilled Maintenance Supervisor Relationship Specialty Start Date End Date Yancy Guerrero MD [address] [place] [address] PCP - General Internal Medicine 09/22/14 documented as of this encounter
--- OUTSIDE RECORDS SUMMARY | 2024-05-16 11:49 | XMS_ITS | Referral Summary ---
Author Organization [facility] Address [address] [place] [address] Care Team Providers Care Real Estate Clerk Name Role Phone Yancy Guerrero MD Primary Care Provider [phone] Lupillo Reyes MD Unavailable [phone] Encounters Date Type Department Care Team Description 04/08/2024 10:20 AM CDL BULK DRIVER Office Visit [facility] Orthopaedic Surgery [address] [place] [address] 2nd [address] [place] [address] Carlos Alberto Ayoub MD Impingement of right shoulder (Primary Dx) 03/14/2024 9:40 AM CDL BULK DRIVER Office Visit [facility] Orthopaedic Surgery [address] [place] [address] 2nd Floor [address] [place] [address] Carlos Alberto Ayoub MD Impingement of right shoulder (Primary Dx) 03/08/2024 11:27 AM CDL BULK DRIVER - 03/08/2024 11:59 PM CDL BULK DRIVER Hospital Encounter [facility] Radiology [address] [place] [address] Acute pain of right shoulder Discharge Disposition: Discharge to home or self care 03/08/2024 11:30 AM CDL BULK DRIVER - 03/08/2024 11:59 PM CDL BULK DRIVER Hospital Encounter [facility] Radiology [address] [place] [address] Acute pain of right shoulder Discharge Disposition: Discharge to home or self care 02/26/2024 Telephone [facility] Orthopaedic Surgery [address] [facility] 2nd [address] [place] [address] Carlos Alberto Ayoub MD 02/26/2024 1:45 PM CDL BULK DRIVER Ancillary Procedure Radiology - [address] [place] [address] [address] [place]me[place] [address] Acute pain of right shoulder 02/26/2024 1:20 PM CDL BULK DRIVER Office Visit [facility] Orthopaedic Surgery [address] [facility] 2nd Floor [address] [place] [address] Carlos Alberto Ayoub MD Sprain of right [...] 03/21/2023 Assessment & Plan (03/23/2023 7:20 AM CDL BULK DRIVER): Atenolol resumed with reasonable control Continue to hold Dyazide and losartan until outpatient follow-up HLD (hyperlipidemia) 03/21/2023 Assessment & Plan (03/22/2023 2:05 PM CDL BULK DRIVER): Continue atorvastatin Transaminases have normalized. Depression with anxiety 03/21/2023 Assessment & Plan (03/23/2023 7:20 AM CDL BULK DRIVER): Cont citalopram 40mg daily and lorazepam 0.5mg BID Resolved Problems Problem Noted Date Diagnosed Date Resolved Date Hypotension 03/21/2023 03/22/2023 Assessment & Plan (03/21/2023 8:09 PM CDL BULK DRIVER): - Presenting with BP 80/50s in setting of reduced PO intake and ongoing BP meds - (+)orthostatics on presentation - Hold BP meds, check orthostatics in AM - Restart meds as needed Headache 03/21/2023 03/22/2023 Assessment & Plan (03/21/2023 8:10 PM CDL BULK DRIVER): - Tylenol ordered; avoid NSAIDs Weakness 03/21/2023 03/23/2023 Assessment & Plan (03/22/2023 2:06 PM CDL BULK DRIVER): TSH and B12 within acceptable limits. Monitor symptoms as blood pressure and renal function recover Nausea 03/21/2023 03/22/2023 Assessment & Plan (03/21/2023 8:10 PM CDL BULK DRIVER): - Zofran ordered SUN (acute kidney injury) 03/21/2023 Assessment & Plan (03/23/2023 7:19 AM CDL BULK DRIVER): Creatinine improved today Check renal function and electrolytes in outpatient follow-up Continue to hold Dyazide and losartan until outpatient follow-up. Abnormal transaminases 03/21/202303/22 Assessment & Plan (03/21/2023 8:11 PM CDL BULK DRIVER): - Elevated in setting of recent viral infection and presumed hypovolemia - Trend in AM - if continues to be elevated consider hepatitis panel/HIV given occupation history Complete rupture of rotator cuff 07/13/2022 03/21/2023 Acute medial meniscus tear of left knee 06/25/2020 03/21/2023 Overview (06/25/2020): Added automatically from request for surgery [id number] Axillary mass, left 12/30/2016 03/21/19 24 Lipoma [...] = 0.6 oz pur e alcohol) socially [facility] Utilities Answer Date Recorded In the past 12 months has [employer], gas, oil, or water [employer] threatened to shut off services in your [...] often do you attend chur ch or adventist services? More than 4 times per year 06/02/2023 Do you belong to any clubs o r organizations such as sikh groups, unions, fraternal or athletic groups, or [...] on file Legal 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 CDL BULK DRIVER Gender Identity Not on file Sexual Orientation [...] 81.6 kg (180 lb) 04/08/2024 10:29 AM CDL BULK DRIVER Height 167.6 cm (5' 6 ) 04/08/2024 10:29 AM CDL BULK DRIVER Body Mass Index 29.05 04/08/2024 10:29 AM CDL BULK DRIVER Plan of Treatment Not on file Medical Devices Implanted Type Area Motorboat Operator Device Identifier Shelf Expiration Date Model / Serial / Lot [employer] Corkscrew Tigertail 5.5mm 14.7mm Drive Mechanism Vent 2 Square [id number] - [id number] Implanted:Qty: 1 on 07/26/2022 by Lupillo Reyes MD at [facility] Right: Shoulder [employer] 02/13/2024 AR-1927BCF T / / [id number] [employer] Corkscrew Tigertail 5.5mm 14.7mm Drive Mechanism Vent 2 Square [id number] - [id number] Implanted:Qty: 1 on 07/26/2022 by Lupillo Reyes MD at [facility] Right: Shoulder [employer] 11/12/2024 AR-1927BCF T / / [id number] [employer] Swivelock C 4.75mm 19.1mm Closed Eyelet Vent Loda Suture Ar-2324bcc - [id number] Implanted:Qty: 1 on 07/26/2022 by Lupillo Reyes MD at [facility] Right: Shoulder [employer] 02/12/2026 AR-[id number] / / [id number] Procedures Procedure Name Priority Date/Time Associated Diagnosis Comments AK ARTHROCENTESIS ASPIR&/INJ MAJOR JT/BURSA W/O US Routine 03/14/2024 9:40 AM CDL BULK DRIVER Impingement of right shoulder MRI SHOULDER ARTHROGRAM RIGHT W CONTRAST Schedule Routine, Read Routine (OP Routine) 03/08/2024 1:16 PM CDL BULK DRIVER Acute pain of right shoulder INJECTION SHOULDER RIGHT ARTHRO ONLY Schedule Routine, Read Routine (OP Routine) 03/08/2024 12:26 PM CDL BULK DRIVER Acute pain of right shoulder XR SHOULDER RIGHT 2 OR MORE VIEWS Schedule Routine, Read Routine (OP Routine) 02/26/2024 1:33 PM CDL BULK DRIVER Acute pain of right shoulder COLONOSCOPY 07/18/2017 9:10 AM CDT from Last 3 Months or Most Recently Relevant to Health Maintenance Results * AK ARTHROCENTESIS ASPIR&/INJ MAJOR JT/BURSA W/O US (03/14/2024 9:40 AM CDL BULK DRIVER) Narrative Carlos Alberto Ayoub MD - 03/14/2024 9:40 AM CDL BULK DRIVER Carlos Alberto Ayoub MD 03/14/2024 11:03 AM [...] Arthrogram Right W Contrast (03/08/2024 1:16 PM CDL BULK DRIVER) Anatomical Region Laterality Modality Upper Extremities Right Magnetic Reson ance 03/08/2024 3:30 PM CDL BULK DRIVER Impressions 03/08/2024 5:05 PM CDL BULK DRIVER Postoperative changes of prior rotator cuff repair [...] by: MD Adam Huerta 03/08/2024 5:05 PM CDL BULK DRIVER EXAMINATION: 1. MR right shoulder with contrast [...] Shoulder Right Arthro Only (03/08/2024 12:26 PM CDL BULK DRIVER) Anatomical Region Laterality Modality Shoulder Right Computed Radiogr aphy 03/08/2024 1:14 PM CDL BULK DRIVER Impressions 03/08/2024 1:14 PM CDL BULK DRIVER 1. Right glenohumeral joint injection under fluoroscopic for MR arthrography. Electronically signed by: Min Madrigal D.O. Narrative 03/08/2024 1:14 PM CDL BULK DRIVER EXAMINATION: 1. Right glenohumeral joint injection 2. Fluoroscopic guidance for needle placement HISTORY: Right shoulder pain, pre MR arthrogram TECHNIQUE: The risks, benefits and alternatives were discussed with the patient. Informed consent was obtained. Prior to beginning the procedure, Peyton Protocol was performed to confirm the patient's [...] was obtained. Prior to beginning the procedure, Peyton Protocol was performed to confirm the patient's [...] Shoulder Right 2+ View (02/26/2024 1:33 PM CDL BULK DRIVER) Anatomical Region Laterality Modality Upper Extremities, Shoulder Right Comp uted Radiography 02/26/2024 2:28 PM CDL BULK DRIVER Impressions 02/26/2024 2:28 PM CDL BULK DRIVER Normal right shoulder radiographs. Electronically signed by: Jesse Stone MD Narrative 02/26/2024 2:28 PM CDL BULK DRIVER EXAMINATION: XR SHOULDER RIGHT 2 OR MORE [...] Jesse Stone MD Carlos Alberto Ayoub MD [facility] XR PROCEDURES Fin al Result * COLONOSCOPY (07/18/2017 9:10 AM CDT) Anatomical Region Laterality Modality Other Narrative Procedure Note Mike Locke MD - 07/18/2017 9:[address] [facility] Patient Name: Camille Shultz Procedure Date: 07/18/2017 9:10 AM Date of : 1960 Admit Type: Outpatient Age: 57 Gender: Female Attending MD: Mike Locke MD Room: [facility] ENDOSCOPY CAPSULE Note Status: Finalized Patient Profile: [...] passed under direct vision.The Pediatric Colonoscope PCF-H190L [id number] was introduced through the anus and advanced [...] 9:10 AM Procedure Code(s): --- Professional --- 02378, Colonoscopy, flexible; diagnostic, including collection of specimen(s) by brushing or washing, when performed (separateprocedure) Diagnosis Code(s): --- Professional --- Z86.010, Personal history of colonic polyps K64.8, Other hemorrhoids K57.30, Diverticulosis of large intestine without perforation orabscess without bleeding CPT copyright 2017 [employer]. All rights reserved. The codes documented in this report are preliminary and upon air conditioning specialist reviewmay be revised to meet current compliance requirements. Recognized by the [place] [employer] for promoting quality in endoscopy Mike Locke MD ENDOSCOPY PROCEDURES Final Result from Last 3 Months or Most Recently Relevant to Health Maintenance Insurance [facility] CMR [facility] WORKERS COMPENSATION GENERIC [facility] Advance Directives For more information, please contact: [phone] * Full Code (Latest Code Status on File) Date Activated Date Inactivated Comments 05/31/2023 7:40 PM 06/03/2023 9:50 PM * Full Code Date Activated Date Inactivated Comments 03/21/2023 8:03 PM 03/23/2023 12:55 PM * Full Code Date Activated Date Inactivated Comments 09/01/2020 7:59 AM 09/01/2020 1:49 PM * Full Code Date Activated Date Inactivated Comments 07/18/2017 8:32 AM 07/18/2017 12:39 PM Care Teams Real Estate Clerk Relationship Specialty Start Date End Date Yancy Guerrero MD [address] [place] [address] PCP - General 05/22/16 Lupillo Reyes MD [address] [place] [address] Consulting Physician Orthopedic Surgery 07/26/22
--- OUTSIDE RECORDS SUMMARY | 2024-05-16 11:49 | XMS_ITS | Encounter Summary ---
Author Organization [facility] Address [address] [place] [address] Phone Care Team Providers Care Waterway Traffic Checker Name Role Phone Yancy Guerrero MD Primary Care Provider + [phone] Lupillo Reyes MD Unavailable [phone] Encounter Details Date Type Department Care Team (Latest Contact Info) Description 11/25/2010 Orders Only [facility] Wendy Choudhary, ISAIAS [address] [facility] [address] [place] [address] Social History Tobacco Use Types Packs/Day Years Used Date Smoking Tobacco: Never Assessed Comments Unknown Sex and Gender Information Value Date Recorded Sex Assigned at Not on file Legal 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 SENIOR SALES REPRESENTATIVE Gender Identity Not on file Sexual Orientation [...] COVID: Suspected 12/06/2019 12/06/2019 12/20/2019 3:05 AM SENIOR SALES REPRESENTATIVE COVID: Suspected 01/14/2021 01/14/2021 01/14/2021 9:43 PM SENIOR SALES REPRESENTATIVE COVID: Suspected 01/17/2021 01/17/2021 01/18/2021 5:33 AM SENIOR SALES REPRESENTATIVE COVID: Suspected 08/06/2021 08/06/2021 08/07/2021 3:05 AM CDT COVID: Suspected 08/06/2021 08/06/2021 08/07/2021 3:18 AM CDT COVID19 08/06/2021 08/06/2021 08/16/2021 3:05 AM CDT COVID: Recovered Comment:Added based on recent COVID infection. 08/16/2021 08/16/2021 12/14/2021 3:05 AM C DT COVID: Suspected 09/23/2021 09/23/2021 09/23/2021 10:56 PM CDT COVID: Suspected 09/29/2021 09/29/2021 09/29/2021 10:32 PM CDT COVID: Suspected 12/24/2021 12/25/2021 12/25/2021 3:05 AM SENIOR SALES REPRESENTATIVE COVID: Suspected 12/25/2021 12/25/2021 12/26/2021 3:05 AM SENIOR SALES REPRESENTATIVE COVID: Suspected 12/25/2021 12/25/2021 12/26/2021 3:49 PM SENIOR SALES REPRESENTATIVE documented as of this encounter Care Teams Waterway Traffic Checker Relationship Specialty Start Date End Date Yancy Guerrero MD [address] [place] [address] PCP - General 05/22/16 Lupillo Reyes MD [address] [address] Consulting Physician Orthopedic Surgery 07/26/22 documented as of this encounter
--- OUTSIDE RECORDS SUMMARY | 2024-05-16 11:49 | XMS_ITS | Encounter Summary ---
Author Organization [facility] Address [address] [place] [address] Care Team Providers Care Customer Service Analyst Name Role Phone Yancy Guerrero MD Primary Care Provider + Encounter Details Date Type Department Care Team (Latest Contact Info) Description 05/02/2003 Outpatient Historical [facility] Tod Cifuentes MD [address] [facility] [address] [place] [address] SCREENING MAMM-MAILG NEOPL-OTHER (Primary Dx) Social History Tobacco Use Types Packs/Day Years Used Date Smoking Tobacco: Never Assessed Comments Unknown Sex and Gender Information Value Date Recorded Sex Assigned at Not on file Legal Sex Female 4:27 AM DIRECTOR OF LEADERSHIP DEVELOPMENT Gender Identity Not on file Sexual Orientation Not on file documented as of this encounter Plan of Treatment Not on file documented as of this encounter Visit Diagnoses Diagnosis Other screening mammogram- Primary documented in this encounter Care Teams Customer Service Analyst Relationship Specialty Start Date End Date Yancy Guerrero MD [address] [place] [address] PCP - General Internal Medicine 09/22/14 documented as of this encounter
--- OUTSIDE RECORDS SUMMARY | 2024-05-16 11:49 | XMS_ITS ---
Author Organization [facility] Address [address] [facility] [address] [place] [address] Care Team Providers Care Fry Cook Name Role Phone Yancy Guerrero MD Primary Care Provider Arcelia Mullins [phone] REASON FOR VISIT Follow up therapy, depression, [...] Status Risk Notes Problem Posttraumatic stress disorder (29149006) PTSD (post-traum atic stress disorder) (F43.10) Active confirmed Encounters Encounter Location Date Provider Diagnosis [facility] [address] [facility] [address] [place] [address] 02/28/2024 Arcelia Tripp Major depressive disorder, recurrent [...] to address underlying issues. Utilize a daily neighborhood planner incorporating affirmations and goals to foster [...] of the potential tear. Consult with an plant specialist for a comprehensive evaluation and to [...] to address underlying issues. Utilize a daily neighborhood planner incorporating affirmations and goals to foster [...] of the potential tear. Consult with an plant specialist for a comprehensive evaluation and to [...] to address underlying issues. Utilize a daily neighborhood planner incorporating affirmations and goals to foster [...] of the potential tear. Consult with an plant specialist for a comprehensive evaluation and to [...] to address underlying issues. Utilize a daily neighborhood planner incorporating affirmations and goals to foster [...] of the potential tear. 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 Utilize a daily neighborhood planner incorporating affirmations and goals to foster [...] of the potential tear. Consult with an plant specialist for a comprehensive evaluation and to [...] Codes: 9 0834 PSYCHOTHERAPY W/PATIENT 45 MINUTES, 80058 BEHAV ASSMT W/SCORE & DOCD/STAND INSTRUMENT * Follow Up: 1 Week * Billing Information: * Visit Code: * Procedure Codes: 67313 PSYCHOTHERAPY W/PATIENT 45 MINUTES. 85284 BEHAV ASSMT W/SCORE & DOCD/STAND INSTRUMENT. * CAL RECORD SPECIALIST Sign off status: Completed Signatures: No Ad Hoc Signature Added true * Provider: Ami Tripp Date: 0 02/28/2024 Generated for Veronika tovar/Dipika/Lindsey on: 0 05/16/2024 11:48 AM CDT
--- OUTSIDE RECORDS SUMMARY | 2024-05-16 11:49 | XMS_ITS | Continuity of Care Document ---
Author Organization [facility] Address [address] [place] [address] Phone Care Team Providers Care Safety Security Officer Name Role Phone Lupillo Reyes MD Unavailable [...] Date Provider Providers Copied on Encounter [facility], [address], [id number], [place] [phone] [facility] No Information [address] [place] [address], [place], [place], [id number] , [place]. tel: [phone] [facility], [address], [id number], [place] tel:[phone] [facility] No Information 4 [address]. [address], [id number] , [place]. tel: [phone] Office/outpat ient visit,est, [facility], [address], [id number], [place] [phone] Rt Shoulder (chief complaint) Complete rotatr-cuff tear/ruptr of r shoulder, not trauma 4 [address]. [address], [id number] , [place]. tel: [phone] Office/outpat ient visit,est, [facility], [address], [id number], [place] tel:[phone] Right shoulder (chief complaint) Complete rotatr-cuff tear/ruptr of r shoulder, not trauma 3 [address]. [address] [facility] [place] [address] [address], [place], [place], [id number] , [place]. tel: [phone] Office/outpat ient visit,est, [facility], [address], [id number], [place] tel:[phone] Follow up (chief complaint) Complete rotatr-cuff tear/ruptr of r shoulder, not trauma 3 [address]. [address] [facility], [place] [address] [address], [place], [place], [id number] , [place]. tel: [phone] Office/outpat ient visit,est, [facility], [address] [place] [address], [place], [place], [id number], [place] tel:[phone] [facility] Post op check up (chief complaint) Complete rotatr-cuff tear/ruptr of r shoulder, not trauma 3 [address]. [address] [facility], [place] [address] [address], [place], [place], [id number] , [place]. tel: [phone] [facility], [address] [place] [address], [id number], [place] tel:[phone] [facility] Right shoulder (chief complaint) Complete rotatr-cuff tear/ruptr of r shoulder, not trauma 3 [address]. [address] [facility], [place] [address] [address], [place], [place], [id number] , [place]. tel: [phone] [facility], [address], [id number], [place] tel:[phone] [facility] Right shoulder (chief complaint) Complete rotatr-cuff tear/ruptr of r shoulder, not trauma 3 [address]. [address] [facility], [address], [id number] , [place]. tel: [phone] [facility], [address] [place] [address], [id number], [place] tel:[phone] [facility] No Information [address]. [address] [facility], [place] [address], [place], [place], [id number] , [place]. tel: [phone] [facility], [address] [place] [address], [id number], [place] tel:[phone] [facility] Complete rotatr-cuff tear/ruptr of r shoulder, not trauma 3 [address]. [address] [facility], [address], [place], [place], [id number] , [place]. tel:[phone] Office consultation, moderate MDM [facility], [address] [facility], [place], [place], [id number], [place] tel:[phone] [facility] Right shoulder muscle tear/pain (chief complaint) Complete rotatr-cuff tear/ruptr of r shoulder, not trauma 3 Eric Lupillo. [address] [facility], [address], [place], [place], [id number] , [place]. [phone] Referring Provider: Lupillo Mueller, [address] [facility] [address], [place], [address] . tel:[phone] Family History Family Member Type Diagnosis Age At Onset Father Problem (finding) Hypertension Mother Problem (finding) Hypertension Mother Problem (finding) Diabetes Father Problem (finding) Cancer, unknown Father Problem (finding) Other Immunizations Vaccine Date Status Comments influenza, injectable, quadr ivalent, (3 years or older) administered Source: Other Provid er Pneumo (2 yrs or older)(PPV) administered Source: Other Provider Payers Payer name Insurance type Covered alliance party ID Authoriza tion(s) [facility] Workers Compensation Adm WC [id number] Social History Type Description Quantity Date [...]
--- OUTSIDE RECORDS SUMMARY | 2024-05-16 11:49 | XMS_ITS | Encounter Summary ---
Author Organization [facility] Address [address] [place] [address] Phone Care Team Providers Care Roll Sheeting Cutter Name Role Phone Yancy Guerrero MD Primary Care Provider + [phone] Lupillo Reyes MD Unavailable [phone] Encounter Details Date Type Department Care Team (Latest Contact Info) Description 04/10/2013 Orders Only [facility] Wendy Choudhary RN [address] [facility] [address] [place] [address] Social History Tobacco Use Types Packs/Day Years Used Date Smoking Tobacco: Never Assessed Comments Unknown Sex and Gender Information Value Date Recorded Sex Assigned at Not on file Legal 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 ENTRY LEVEL ADMINISTRATIVE ASSISTANT Gender Identity Not on file Sexual [...] COVID: Suspected 12/06/2019 12/06/2019 12/20/2019 3:05 AM ENTRY LEVEL ADMINISTRATIVE ASSISTANT COVID: Suspected 01/14/2021 01/14/2021 01/14/2021 9:43 PM ENTRY LEVEL ADMINISTRATIVE ASSISTANT COVID: Suspected 01/17/2021 01/17/2021 01/18/2021 5:33 AM ENTRY LEVEL ADMINISTRATIVE ASSISTANT COVID: Suspected 08/06/2021 08/06/2021 08/07/2021 3:05 AM CDT COVID: Suspected 08/06/2021 08/06/2021 08/07/2021 3:18 AM CDT COVID19 08/06/2021 08/06/2021 08/16/2021 3:05 AM CDT COVID: Recovered Comment:Added based on recent COVID infection. 08/16/2021 08/16/2021 12/14/2021 3:05 AM C DT COVID: Suspected 09/23/2021 09/23/2021 09/23/2021 10:56 PM CDT COVID: Suspected 09/29/2021 09/29/2021 09/29/2021 10:32 PM CDT COVID: Suspected 12/24/2021 12/25/2021 12/25/2021 3:05 AM ENTRY LEVEL ADMINISTRATIVE ASSISTANT COVID: Suspected 12/25/2021 12/25/2021 12/26/2021 3:05 AM ENTRY LEVEL ADMINISTRATIVE ASSISTANT COVID: Suspected 12/25/2021 12/25/2021 12/26/2021 3:49 PM ENTRY LEVEL ADMINISTRATIVE ASSISTANT documented as of this encounter Care Teams Roll Sheeting Cutter Relationship Specialty Start Date End Date Yancy Guerrero MD [address] [place] [address] PCP - General 05/22/16 Lupillo Reyes MD [address] [address] Consulting Physician Orthopedic Surgery 07/26/22 documented as of this encounter
--- OUTSIDE RECORDS SUMMARY | 2024-05-16 11:49 | XMS_ITS | Patient Health Record ---
Author Organization [facility] [employer] Address [address] [facility] [address] [place] [address] Care Team Providers Care Data Processing Consultant Name Role Phone Ynacy Guerrero MD Primary Care Provider Arcelia Mullins Unavailable [phone] Reason For Referral No Information Social History [...] Severe recurrent major depression without psychotic features (27199065) Major depressive disorder, recurrent severe without psychotic features (F33.2) Active confirmed Problem Generalized anxiety disorder (95589990) Generalized anxiety disorder (F41.1) Active confirmed Problem Posttraumatic stress disorder (61286501) PTSD (post-traumatic stress disorder) (F43.10) Active confirmed Problem Alcohol abuse (14985264) Alcohol abuse (F10.10) Active confirmed Encounters Encounter Location Date Provider Diagnosis [facility] [address] [place] [address] [place] [address] 01/18/2024 Arcelia Qasim Major depressive disorder, recurrent severe without psychotic features F33.2 ; Generalized anxiety disorder F41.1 and Alcohol abuse F10.10 [facility] [address] [facility] [address] [place] [address] 01/23/2024 Arcelia Tripp Major depressive disorder, recurrent severe without psychotic features F33.2 ; Generalized anxiety disorder F41.1 ; Alcohol abuse F10.10 and PTSD (post-traumatic stress disorder) F43.10 [employer] [facility], Walk[facility] [address] [facility] [address] [place] [address] 02/02/2024 Arcelia Tripp [employer] [facility], [facility] [address] [place] [place] [address] 02/28/2024 Arcelia Tripp Major depressive disorder, recurrent severe without psychotic features F33.2 ; Generalized anxiety disorder F41.1 ; Alcohol abuse F10.10 and PTSD (post-traumatic stress disorder) F43.10 [employer] [facility] [address] [facility] [address] [place] [address] 02/13/2024 Arcelia Tripp [facility] [employer] [facility] [address] [facility] [address] [place] [address] 02/26/2024 Arcelia Tripp [facility] [employer] [facility] [address] [facility] [address] [place] [address] 03/06/2024 Arcelia Tripp Assessments Encounter Date Diagnosis (ICD Code) Assessment Notes Treatment Notes Treatment Clinical Notes Section Notes 01/18/2024 Major depressive disorder, recurrent severe without psychotic features (ICD-10 - F33.2) Marital Status: Living Arrangement: lives alone Children: 2 daughters Support System: daughters Highest Level of Education: completed college 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 History: Denied Legal History: DUI, 04/26/22 Family History of MH/RADHAMES: alcohol, anxiety, PTSD, bipolar Physical Medical Conditions: hypertension, afib, elevated lipids Spiritual Beliefs: Rastafari Suicidal Ideation/Self Harm: Denied Homicidal Ideation: Denied [...] weekly support group meetings, like AA or [employer], to sustain sobriety and develop a support [...] Level of Education: completed college 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 and [employer], for additional support. 2. Family-related Stress - [...] of local support groups, including [employer] and [employer], for additional support. 2. Family-related Stress - [...] to address underlying issues. Utilize a daily meeting planner incorporating affirmations and goals to foster [...] of the potential tear. Consult with an military technology specialist for a comprehensive evaluation and to [...] to address underlying issues. Utilize a daily meeting planner incorporating affirmations and goals to foster [...] of the potential tear. Consult with an military technology specialist for a comprehensive evaluation and to [...] a list of local support groups, including [employer] and [employer], for additional support. 2. Family-related Stress - [...] to address underlying issues. Utilize a daily meeting planner incorporating affirmations and goals to foster [...] of the potential tear. 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 and [employer], for additional support. 2. Family-related Stress - [...] to address underlying issues. Utilize a daily meeting planner incorporating affirmations and goals to foster [...] of the potential tear. Consult with an military technology specialist for a comprehensive evaluation and to [...] Insured Coverage Start Date Coverage End Date [facility] [address] [place] [address] [phone] [id number] Camille Hendricks Self - patient is the [...]
--- OUTSIDE RECORDS SUMMARY | 2024-05-16 11:49 | XMS_ITS | Encounter Summary ---
Author Organization [facility] Address [address] [place] [address] Care Team Providers Care Insurance Checker Name Role Phone Yancy Guerrero MD Primary Care Provider + Encounter Details Date Type Department Care Team (Latest Contact Info) Description 03/10/2006 Outpatient Historical HIS [facility] SRIDHAR Velázquez, [place] [address] [facility] [address] [place] [address] Lump or Mass in Breast (Primary Dx) Social History Tobacco Use Types Packs/Day Years Used Date Smoking Tobacco: Never Assessed Comments Unknown Sex and Gender Information Value Date Recorded Sex Assigned at Not on file 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
--- OUTSIDE RECORDS SUMMARY | 2024-05-16 11:49 | XMS_ITS | Encounter Summary ---
Author Organization [facility] Address [address] [place] [address] Care Team Providers Care News Clerk Name Role Phone Yancy Guerrero MD Primary Care Provider + Encounter Details Date Type Department Care Team (Latest Contact Info) Description 05/26/2005 Outpatient Historical HIS [facility] Tod Cifuentes MD [address] [facility] [address] [place] [address] Other Screening Mammogram (Primary Dx) Social History Tobacco Use Types Packs/Day Years Used Date Smoking Tobacco: Never Assessed Comments Unknown Sex and Gender Information Value Date Recorded Sex Assigned at Not on file Legal 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
--- OUTSIDE RECORDS SUMMARY | 2024-05-16 11:49 | XMS_ITS | Clinical Summary ---
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 Gender Identity Not on file Sexual Orientation Not on file Occupation Industry Job Start Date Job End Date Not on file Not on file Not on file Not on file Last Filed Vital Signs Vital Sign Reading Time Taken Comments Blood Pressure 132/89 12/30/2016 11:52 AM NOXIOUS WEEDS AND PEST INSPECTOR Pulse 92 12/30/2016 11:52 AM NOXIOUS WEEDS AND PEST INSPECTOR Temperature 36.9 C (98.4 F) 01/29/2009 11:30 AM NOXIOUS WEEDS AND PEST INSPECTOR Respiratory Rate 16 01/29/2009 11:30 AM NOXIOUS WEEDS AND PEST INSPECTOR Oxygen Saturation 93% 01/29/2009 11:30 AM NOXIOUS WEEDS AND PEST INSPECTOR Inhaled Oxygen Concentration - - Weight 76.7 kg (169 lb) 12/30/2016 11:52 AM NOXIOUS WEEDS AND PEST INSPECTOR Height 167.6 cm (5' 6 ) 12/30/2016 11:52 AM NOXIOUS WEEDS AND PEST INSPECTOR Body Mass Index 27.28 12/30/2016 11:52 AM NOXIOUS WEEDS AND PEST INSPECTOR Plan of Treatment Health Maintenance Due Date Last Done Comments DTAP/TDAP/TD VACCINES (1 - Tdap) 1980 PAP SMEAR 06/22/1991 COLORECTAL SCREENING 2006 Colorectal Cancer Screening 2006 FIT-DNA Q 3 years 2006 FIT/FOBT Q 1 year 2006 Flex Sig/CT Colonography Q 5 years 2006 ZOSTER VACCINE (1 of 2) 06/22/2011 BREAST CANCER SCREENING 10/30/2020 10/31/19, 10/05/2017, 03/04/2016, Additional history exists INFLUENZA VACCINE (#1) 2023 RSV VACCINE (60+ or ) (1 - 1-dose 75+ series) 2036 Medical Devices Implanted Type Area Interlocking Machine Operator Device Identifier Shelf Expiration Date Model / Serial / Lot Sling [employer]arc [id number] Implanted:Qty: 1 on 01/28/2009 at [facility] Sling Pelvis AMS AM [employer] [id number] / / Procedures Procedure Name Priority Date/Time Associated Diagnosis Comments MAMMO 3D PRO SCREEN BILAT W OR WO CAD Routine 10/31/2019 10:57 AM CDT Breast cancer screening by mammogram from Last 3 Months or Most Recently Relevant to Health Maintenance Results * MAMMO SCRN BILAT 3D POR W OR WO CAD (10/31/2019 10:57 AM CDT) Anatomical Region Laterality Modality Breast Bilateral Mammography 10/31/2019 10:5 7 AM CDT Impressions 10/31/2019 3:53 PM CDT IMPRESSION: Negative bilateral screening mammogram. Recommend routine followup. OVERALL FINAL ASSESSMENT: BI-RADS CATEGORY 1: Negative DICTATION LOCATION: [facility] Narrative 10/31/2019 3:53 PM CDT BILATERAL SCREENING [...] ASSESSMENT: BI-RADS CATEGORY 1: Negative DICTATION LOCATION: [facility] Tod Dallas MD MAMMO ORDERABLES Final Result from Last 3 Months or Most Recently Relevant to Health Maintenance Insurance [employer] [id number] POS II Advance Directives For more information, please contact: [phone] * Full Code (Latest Code Status on File) Date Activated Date Inactivated Comments 01/28/2009 9:06 PM 01/29/2009 4:29 PM * Full Code Date Activated Date Inactivated Comments 01/28/2009 7:38 PM 01/28/2009 9:06 PM * Full Code Date Activated Date Inactivated Comments 01/28/2009 2:46 PM 01/28/2009 7:38 PM Care Teams Mountain Bike Guide Relationship Specialty Start Date End Date Yancy Guerrero MD [address] [place] [address] PCP - General Internal Medicine 09/22/14
--- OUTSIDE RECORDS SUMMARY | 2024-05-16 11:49 | XMS_ITS ---
Author Organization [facility] Address [address] [facility] [address] [place] [address] Care Team Providers Care Residential Sales Name Role Phone Cesar ROSARIO, Yancy Primary Care Provider Arcelia Mullins [phone] Social History Sex Assigned At : Social History Observation Description Sex Assigned At Female Encounters Encounter Location Date Provider Diagnosis [facility], Walk[facility] [address] [facility] [address] [place] [address] 03/06/2024 Arcelia Tripp Plan Of Treatment No Information Progress Notes * Camille KOODOB: [birth year] (63 yo F)Acc No.[id number]:03/06/2024 Patient: Anabel BARRCamille CROW Provider: Ami Tripp :1960 A ge:63 Y S ex:Female Date:03/06/2024 Phone: Address:[address] [place], [place] [address] Pcp:Yancy Guerrero MD Data: * Chief Complaints: * Assessment: Plan: * Treatment: * Billing Information: * Visit Code: * Procedure Codes: * Electronic signature of Roman Tripp LCPC on 05/16/2024 at 11:48 AM CDT Sign off status: Pending Signatures: No Ad Hoc Signature Added * Provider: Ami Tripp Date: 03/06/2024 Generated for Veronika tovar/Dipika/eTransminderjit on: 0 05/16/2024 11:48 AM CDT
--- OUTSIDE RECORDS SUMMARY | 2024-05-16 11:49 | XMS_ITS | CONTINUITY OF CARE DOCUMENT ---
Author Name emerald corbin Address Unknown Organization [facility] Address [address] [place] [address] [address] [place] [address] Phone [phone] Care Team Providers Care Advertising Layout Worker Name Role Phone Prabhu ROSARIO, Tha Unavailable INSURANCE PROVIDERS Payer name Policy type / Coverage type [employer] red alliance party ID [facility] [employer] insurance [id number]
== END 2024-05-16 10:53 | disposition home or self-care (01) ==
LOC: CHSLAB 10:54
PROVIDERS: PCP Internal Medicine; Visit Provider Internal Medicine
DX: R05.9 Cough, unspecified (principal); R68.83 Chills (without fever)
CPT/HCPCS: 36415; 71046; 85027

== ENCOUNTER 2024-06-20 17:06 | Emergency (ER) | payer OTHER, SELFPAY ==
[2024-06-20] VITALS (36 sets, daily range): BP systolic 81–128; BP diastolic 47–79; PULSE 72–116; RESP 16–40; TEMP 36.2–37.3; O2SAT 86–99
--- NOTE | ~2024-06-20 | CT_ITS ---
CLINICAL INDICATION: Bilateral flank pain and hypotension COMPARISON: None. TECHNIQUE: Multiple contiguous axial images of the abdomen and pelvis were performed without the admi nistration of intravenous contrast The dose-length product (DLP) was 507.56 mGy-cm. Automated exposure control and iterative reconstruction technique were employed. FINDINGS/OBSERVATIONS: Visualized lower thorax: Bibasilar atelectasis, left greater than right. The heart is enlarged, without pericardial effusion. Liver: The liver demonstrates homogeneous attenuation and is enlarged measuring 21 cm in longitudinal dimens ion. Gallbladder and biliary system: The gallbladder is only minimally distended, and otherwise unremarkable. Pancreas: Limited evaluation of the pancreas secondary to the lack of intravenous contrast. Spleen: The spleen demonstrates homogeneous attenuation and is not enlarged. Kidneys: Global enlargement of the bilateral kidneys, right greater than left. Right-sided hydroureteronephrosis extending to the proximal/mid right ureter where an 8 mm calculus i s present. No left-sided hydronephrosis or hydroureter. Adrenal glands: Unremarkable. Gastrointestinal tract: Colonic diverticulosis without surrounding inflammatory change. Appendix: The appendix is not definitively visualized. However, no pericecal inflammatory change is identified suggest the presence of acute appendicitis. Vasculature: Calcified atherosclerotic disease. Lymph nodes: Limited evaluation without intravenous contrast. Pelvic structures: The bladder is only minimally distended, and otherwise unremarkable. The uterus is either atrophic or surgically absent. Body wall and musculoskeletal: Small fat-containing umbilical hernia. Age-appropriate degenerative disease within the lumbosacral spine. IMPRESSION: Global enlargement of the bilateral kidneys, right greater than left. Right-sided hydroureteronephrosis secondary to an 8 mm calculus within the mid right ureter Hepatomegaly. Reviewed, dictated and finalized at location A.
--- NOTE | ~2024-06-20 | CT_ITS ---
History: Altered mental status PROCEDURE: CT head without contrast. COMPARISON: None TECHNIQUE: Axial imaging of the head performed from the skull base to the vertex without IV contrast. Sagittal a nd coronal reformations obtained. DLP: 605 mGy-cm FINDINGS: The ventricles are normal in size, shape and position. There is no mass, mass effect or midline shift. There is no abnormal extra-axial fluid collection or intracranial hemorrhage. Visualized paranasal sinuses are clear. The mastoid air cells are well aerated. No acute displaced fractures within the overlying cranium. Impression: No acute intracranial hemorrhage or suspicious mass effect. Reviewed, dictated and finalized at location A. Impression: No acute intracranial hemorrhage or suspicious mass effect.
--- NOTE | ~2024-06-20 | XR_ITS ---
CHEST RADIOGRAPH CLINICAL HISTORY: dyspnea, AMS . COMPARISON: 05/16/2024 TECHNIQUE: Single portable view of the chest. FINDINGS Elevation of the left hemidiaphragm with adjacent compressive atelectasis. The remainder of the cardiomediastinal silhouette is otherwise unremarkable. The remainder of the lungs are clear. IMPRESSION: Elevation of the left hemidiaphragm with adjacent compressive atelectasis. The remainder of the lungs are clear. Reviewed, dictated and finalized at location A.
--- OUTSIDE RECORDS SUMMARY | 2024-06-20 17:08 | XMS_ITS | Encounter Summary ---
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
--- OUTSIDE RECORDS SUMMARY | 2024-06-20 17:08 | XMS_ITS | Encounter Summary ---
Author Organization [facility] Address [address] [place] [address] Phone Care Team Providers Care Review Manager Name Role Phone Yancy Guerrero MD Primary Care Provider + [phone] Lupillo Reyes MD Unavailable [phone] Encounter Details Date Type Department Care Team (Latest Contact Info) Description 03/28/2023 Orders Only [facility] Wendy Choudhary, RN [address] [facility] [address] [place] [address] Social History Tobacco Use Types [...] on file Legal 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 RN OBGYN Gender Identity Not on file Sexual Orientation [...] on filedocumented in this encounter Care Teams Review Manager Relationship Specialty Start Date End Date Yancy Gurerero MD [address] [place] [address] PCP - General 05/22/16 Lupillo Reyes MD [address] [facility] [address] [place] [address] Consulting Physician Orthopedic Surgery 07/26/22 documented as of this encounter
--- OUTSIDE RECORDS SUMMARY | 2024-06-20 17:08 | XMS_ITS | Clinical Summary ---
Author Organization [facility] Address [address] [place] [address] Care Team Providers Care Haulpak Driver Name Role Phone Yancy Guerrero MD Primary Care Provider + [phone] Lupillo Reyes MD Unavailable [phone] Allergies No known active allergies Medications citalopram [...] by mouth nightly 30 tablet 1 4 Active amLODIPine (NORVASC) 5 mg tablet Take 1 tablet (5 mg total) by mouth daily 30 tablet 1 4 Active folic acid (FOLVITE) 1 mg tablet Take 1 tablet (1 mg total) by mouth daily 30 tablet 1 4 Active metoprolol tartrate (LOPRESSOR) 50 mg immediate release tablet Take 1 tablet (50 mg total) by mouth 2 (two) times a day 180 tablet 3 4 08/02/19 25 Active thiamine (VITAMIN B1) 100 mg tablet Take 1 tablet (100 mg total) by mouth daily 30 tablet 1 4 06/04/19 25 Active Problems Problem Noted Date Diagnosed Date A-fib 05/31/2023 Nicotine abuse 05/31/2023 Hypomagnesemia 05/31/2023 Hypokalemia 05/31/2023 Thrombocytopenia 05/31/2023 Alcohol use 05/31/2023 Anxiety 05/31/2023 Chronic anemia 05/31/2023 HTN (hypertension) 03/21/2023 Assessment & Plan (03/23/2023 7:20 AM FENCE MAKING MACHINE OPERATOR): Atenolol resumed with reasonable control Continue to hold Dyazide and losartan until outpatient follow-up HLD (hyperlipidemia) 03/21/2023 Assessment & Plan (03/22/2023 2:05 PM FENCE MAKING MACHINE OPERATOR): Continue atorvastatin Transaminases have normalized. Depression with anxiety 03/21/2023 Assessment & Plan (03/23/2023 7:20 AM FENCE MAKING MACHINE OPERATOR): Cont citalopram 40mg daily and lorazepam 0.5mg BID Resolved Problems Problem Noted Date Diagnosed Date Resolved Date Hypotension 03/21/2023 03/22/2023 Assessment & Plan (03/21/2023 8:09 PM FENCE MAKING MACHINE OPERATOR): - Presenting with BP 80/50s in setting of reduced PO intake and ongoing BP meds - (+)orthostatics on presentation - Hold BP meds, check orthostatics in AM - Restart meds as needed Headache 03/21/2023 03/22/2023 Assessment & Plan (03/21/2023 8:10 PM FENCE MAKING MACHINE OPERATOR): - Tylenol ordered; avoid NSAIDs Weakness 03/21/2023 03/23/2023 Assessment & Plan (03/22/2023 2:06 PM FENCE MAKING MACHINE OPERATOR): TSH and B12 within acceptable limits. Monitor symptoms as blood pressure and renal function recover Nausea 03/21/2023 03/22/2023 Assessment & Plan (03/21/2023 8:10 PM FENCE MAKING MACHINE OPERATOR): - Zofran ordered SUN (acute kidney injury) 03/21/2023 Assessment & Plan (03/23/2023 7:19 AM FENCE MAKING MACHINE OPERATOR): Creatinine improved today Check renal function and electrolytes in outpatient follow-up Continue to hold Dyazide and losartan until outpatient follow-up. Abnormal transaminases 03/21/202303/22 Assessment & Plan (03/21/2023 8:11 PM FENCE MAKING MACHINE OPERATOR): - Elevated in setting of recent viral infection and presumed hypovolemia - Trend in AM - if continues to be elevated consider hepatitis panel/HIV given occupation history Complete rupture of rotator cuff 07/13/2022 03/21/2023 Acute medial meniscus tear of left knee 06/25/2020 03/21/2023 Overview (06/25/2020): Added automatically from request for surgery [id number] Axillary mass, left 12/30/2016 03/21/19 24 Lipoma of forehead 11/23/2015 4 Pain in shoulder 11/12/2014 03/21/2023 Syncope 03/06/2013 03/21/2023 Encounters Date Type Department Care Team Description 06/17/2024 Telephone [facility] Orthopaedic Surgery [address] [place] [address] 2nd Floor [address] [place] [address] Cheryl Trujillo RN WC Intake Form 06/04/2024 Telephone [facility] Orthopaedic Surgery [address] [place] [address] 2nd Floor [address] [place] [address] Cheryl Trujillo RN 04/08/2024 10:20 AM FENCE MAKING MACHINE OPERATOR Office Visit [facility] Orthopaedic Surgery [address] [facility] 2[address] Floor [address] [place] [address] Carlos Alberto Ayoub MD Impingement of right shoulder (Primary Dx) from Last 3 Months Immunizations Immunization Administration [...] = 0.6 oz pur e alcohol) socially [employer] Utilities Answer Date Recorded In the past 12 months has [employer], gas, oil, or water [employer] threatened to shut off services in your [...] 06/02/2023 How often do you attend chur or catholic services? More than 4 times per year 06/02/2023 Do you belong to any clubs o r organizations such as yazidi groups, unions, fraternal or athletic groups, or [...] place to sleep or slept in a prison (including now)? No 06/02/2023 Personal Safety Answer Date Recorded Have you ever been in or are you currently in a harmful physical or emotional relationship or is someone making you feel afraid or unsafe? Denies 05/31/2023 Comments No Sex and Gender Information Value Date Recorded Sex Assigned at Not on file Legal 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 FENCE MAKING MACHINE OPERATOR Gender Identity Not on file Sexual [...] 81.6 kg (180 lb) 04/08/2024 10:29 AM FENCE MAKING MACHINE OPERATOR Height 167.6 cm (5' 6 ) 04/08/2024 10:29 AM FENCE MAKING MACHINE OPERATOR Body Mass Index 29.05 04/08/2024 10:29 AM FENCE MAKING MACHINE OPERATOR Plan of Treatment Health Maintenance Due Date Last Done Comments Depression Screening 1960 Hepatitis C Screening 1960 Hepatitis B Screening 06/22/1979 Regular Well Visit/Exam 18-64 06/22/1979 Breast Cancer Screening-Mammogram 10/30/2020 10/31/2019, 10/31/2019, 10/05/2017, Additional history exists Covid-19 Vaccine (3 - 2023-2 5 season) 2023 03/13/2020, 02/18/2020 Influenza Vaccine (Season Ended) 2024 01/09/2023, 11/13/2022, 11/18/2021, Additional history exists Pneumococcal vaccine [...] 07/15/2020, 05/04/2020 Medical Devices Implanted Type Area Deputy Jailer Device Identifier Shelf Expiration Date Model / Serial / Lot [employer] Corkscrew Tigertail 5.5mm 14.7mm Drive Mechanism Vent 2 Square Ar-1927bcft - [id number] Implanted:Qty: 1 on 07/26/2022 by Lupillo Reyes MD at [facility] Right: Shoulder [employer] 02/13/2024 AR-1927BCF T / / [id number] [employer] Corkscrew Tigertail 5.5mm 14.7[address] Drive Mechanism Vent 2 Square Ar-1927bcft - [id number] Implanted:Qty: 1 on 07/26/2022 by Lupillo Reyes MD at [facility] Right: Shoulder [employer] 11/12/2024 AR-1927BCF T / / [id number] [employer] Swivelock C 4.75mm 19.1mm Closed Eyelet Vent [place] Suture Ar-2324bcc - [id number] Implanted:Qty: 1 on 07/26/2022 by Lupillo Reyes MD at [facility] Right: Shoulder [employer] 02/12/2026 AR-2324BCC / / [id number] Procedures Procedure Name Priority Date/Time Associated Diagnosis Comments COLONOSCOPY 07/18/2017 9:10 AM CDT from Last 3 Months or Most Recently Relevant to Health Maintenance Results * COLONOSCOPY (07/18/2017 9:10 AM CDT) Anatomical Region Laterality Modality Other Narrative Procedure Note Mike Locke MD - 07/18/2017 9:10 AM CDT [facility] Patient Name: Camille Shultz Procedure Date: 07/18/2017 9:10 AM Date of : 1960 Admit Type: Outpatient Age: 57 Gender: Female Attending MD: Mike Locke MD Room: [facility] ENDOSCOPY CAPSULE Note Status: Finalized Patient Profile: [...] passed under direct vision.The Pediatric Colonoscope PCF-H190L [id number] was introduced through the anus and advanced [...] 9:10 AM Procedure Code(s): --- Professional --- 18494, Colonoscopy, flexible; diagnostic, including collection of specimen(s) by brushing or washing, when performed (separateprocedure) Diagnosis Code(s): --- Professional --- Z86.010, Personal history of colonic polyps K64.8, Other hemorrhoids K57.30, Diverticulosis of large intestine without perforation orabscess without bleeding CPT copyright 2017 [employer]. All rights reserved. The codes documented in this report are preliminary and upon labor economics professor reviewmay be revised to meet current compliance requirements. Recognized by the [place] [employer] Gastrointestinal [employer] for promoting quality in endoscopy Mike Locke MD ENDOSCOPY PROCEDURES Final Result from Last 3 Months or Most Recently Relevant to Health Maintenance Insurance [facility] [id number] [place] [address] [facility] WORKERS COMPENSATION GENERIC Member Subscriber Plan / Payer (Ef fective 2022-Present) Name:Camille Shultz Relation to Subscriber:Self Name:Camille Shultz Payer ID:[id number] Group ID:Not on file Type:WORKERS COMPENSATION Address: [place] [id number] [facility] Advance Directives For more information, please contact: [phone] * Full Code (Latest Code Status on File) Date Activated Date Inactivated Comments 05/31/2023 7:40 PM 06/03/2023 9:50 PM * Full Code Date Activated Date Inactivated Comments 03/21/2023 8:03 PM 03/23/2023 12:55 PM * Full Code Date Activated Date Inactivated Comments 09/01/2020 7:59 AM 09/01/2020 1:49 PM * Full Code Date Activated Date Inactivated Comments 07/18/2017 8:32 AM 07/18/2017 12:39 PM Care Teams Haulpak Driver Relationship Specialty Start Date End Date Yancy Guerrero MD [address] [place] [address] PCP - General 05/22/16 Lupillo Reyes MD [address] [address] Consulting Physician Orthopedic Surgery 07/26/22
--- OUTSIDE RECORDS SUMMARY | 2024-06-20 17:08 | XMS_ITS | Encounter Summary ---
Author Organization [facility] Address [address] [place] [address] Phone Care Team Providers Care Coffee Taster Name Role Phone Yancy Guerrero MD Primary Care Provider + [phone] Lupillo Reyes MD Unavailable [phone] Encounter Details Date Type Department Care Team (Latest Contact Info) Description 04/13/2023 Orders Only [facility] Wendy Choudhary, RN [address] [facility] [address] [place] [address] Social History Tobacco Use Types [...] on file Legal 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 WAGON WASHER Gender Identity Not on file Sexual Orientation [...] on filedocumented in this encounter Care Teams Coffee Taster Relationship Specialty Start Date End Date Yancy Guerrero MD [address] [place] [address] PCP - General 05/22/16 Lupillo Reyes MD [address] [facility] [address] [place] [address] Consulting Physician Orthopedic Surgery 07/26/22 documented as of this encounter
--- OUTSIDE RECORDS SUMMARY | 2024-06-20 17:08 | XMS_ITS | Referral Summary ---
Author Organization [facility] Address [address] [place] [address] Care Team Providers Care Assembler Insulator Name Role Phone Yancy Guerrero MD Primary Care Provider [phone] Lupillo Reyes MD Unavailable [phone] Encounters Date Type Department Care Team Description 06/17/[address] [facility] Orthopaedic Surgery [address] [place] [address] Floor [address] [place] [phone] Cheryl Trujillo RN Intake Form 06/04/[address] [facility] Orthopaedic Surgery [address] [place] [address] Floor [address] [place] [phone] Cheryl Trujillo RN 04/08/2024 10:20 AM INVENTORY CONTROLLER Office Visit [facility] Orthopaedic Surgery [address] [place] [address] Floor [address] [place] [phone] Carlos Alberto Ayoub MD Impingement of right shoulder (Primary Dx) from Last 3 Months Allergies No known [...] 03/21/2023 Assessment & Plan (03/23/2023 7:20 AM INVENTORY CONTROLLER): Atenolol resumed with reasonable control Continue to hold Dyazide and losartan until outpatient follow-up HLD (hyperlipidemia) 03/21/2023 Assessment & Plan (03/22/2023 2:05 PM INVENTORY CONTROLLER): Continue atorvastatin Transaminases have normalized. Depression with anxiety 03/21/2023 Assessment & Plan (03/23/2023 7:20 AM INVENTORY CONTROLLER): Cont citalopram 40mg daily and lorazepam 0.5mg BID Resolved Problems Problem Noted Date Diagnosed Date Resolved Date Hypotension 03/21/2023 03/22/2023 Assessment & Plan (03/21/2023 8:09 PM INVENTORY CONTROLLER): - Presenting with BP 80/50s in setting of reduced PO intake and ongoing BP meds - (+)orthostatics on presentation - Hold BP meds, check orthostatics in AM - Restart meds as needed Headache 03/21/2023 03/22/2023 Assessment & Plan (03/21/2023 8:10 PM INVENTORY CONTROLLER): - Tylenol ordered; avoid NSAIDs Weakness 03/21/2023 03/23/2023 Assessment & Plan (03/22/2023 2:06 PM INVENTORY CONTROLLER): TSH and B12 within acceptable limits. Monitor symptoms as blood pressure and renal function recover Nausea 03/21/2023 03/22/2023 Assessment & Plan (03/21/2023 8:10 PM INVENTORY CONTROLLER): - Zofran ordered SUN (acute kidney injury) 03/21/2023 Assessment & Plan (03/23/2023 7:19 AM INVENTORY CONTROLLER): Creatinine improved today Check renal function and electrolytes in outpatient follow-up Continue to hold Dyazide and losartan until outpatient follow-up. Abnormal transaminases 03/21/202303/22 Assessment & Plan (03/21/2023 8:11 PM INVENTORY CONTROLLER): - Elevated in setting of recent viral infection and presumed hypovolemia - Trend in AM - if continues to be elevated consider hepatitis panel/HIV given occupation history Complete rupture of rotator cuff 07/13/2022 03/21/2023 Acute medial meniscus tear of left knee 06/25/2020 03/21/2023 Overview (06/25/2020): Added automatically from request for surgery [id number] Axillary mass, left 12/30/2016 03/21/19 24 Lipoma [...] drink = 0.6 oz pur e alcohol) [employer] Answer Date Recorded In the past 12 months has [employer], gas, oil, or water [employer] threatened to shut off services in your [...] often do you attend chur ch or voodoo services? More than 4 times per year 06/02/2023 Do you belong to any clubs o r organizations such as zoroastrian groups, unions, fraternal or athletic groups, or [...] place to sleep or slept in a care home (including now)? No 06/02/2023 Personal Safety Answer Date Recorded Have you ever been in or are you currently in a harmful physical or emotional relationship or is someone making you feel afraid or unsafe? Denies 05/31/2023 Comments No Sex and Gender Information Value Date Recorded Sex Assigned at Not on file Legal 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 INVENTORY CONTROLLER Gender Identity Not on file Sexual Orientation [...] 81.6 kg (180 lb) 04/08/2024 10:29 AM INVENTORY CONTROLLER Height 167.6 cm (5' 6 ) 04/08/2024 10:29 AM INVENTORY CONTROLLER Body Mass Index 29.05 04/08/2024 10:29 AM INVENTORY CONTROLLER Plan of Treatment Not on file Medical Devices Implanted Type Area Temporary Office Assistant Device Identifier Shelf Expiration Date Model / Serial / Lot [employer] Corkscrew Tigertail 5.5mm 14.[address] Mechanism Vent 2 Square Ar-1927bcft - [id number] Implanted:Qty: 1 on 07/26/2022 by Lupillo Reyes MD at [facility] Right: Shoulder [employer] 02/13/2024 AR-1927BCF T / / [id number] [employer] Corkscrew Tigertail 5.5mm 14.7[address] Drive Mechanism Vent 2 Square Ar-1927bcft - [id number] Implanted:Qty: 1 on 07/26/2022 by Lupillo Reyes MD at [facility] Right: Shoulder [employer] 11/12/2024 AR-1927BCF T / / [id number] [employer] Swivelock C 4.75mm 19.1mm Closed Eyelet Vent [place] Suture Ar-2324bcc - [id number] Implanted:Qty: 1 on 07/26/2022 by Lupillo Reyes MD at [facility] Right: Shoulder [employer] 02/12/2026 AR-2324BCC / / [id number] Procedures Procedure Name Priority Date/Time Associated Diagnosis Comments COLONOSCOPY 07/18/2017 9:10 AM CDT from Last 3 Months or Most Recently Relevant to Health Maintenance Results * COLONOSCOPY (07/18/2017 9:10 AM CDT) Anatomical Region Laterality Modality Other Narrative Procedure Note Mike Locke MD - 07/18/2017 9:10 AM CDT [facility] Patient Name: Camille Shultz Procedure Date: 07/18/2017 9:10 AM Date of : 1960 Admit Type: Outpatient Age: 57 Gender: Female Attending MD: Mike Locke MD Room: [facility] ENDOSCOPY CAPSULE Note Status: Finalized Patient Profile: [...] passed under direct vision.The Pediatric Colonoscope PCF-H190L [id number] was introduced through the anus and advanced [...] 9:10 AM Procedure Code(s): --- Professional --- 25968, Colonoscopy, flexible; diagnostic, including collection of specimen(s) by brushing or washing, when performed (separateprocedure) Diagnosis Code(s): --- Professional --- Z86.010, Personal history of colonic polyps K64.8, Other hemorrhoids K57.30, Diverticulosis of large intestine without perforation orabscess without bleeding CPT copyright 2017 [employer]. All rights reserved. The codes documented in this report are preliminary and upon hand molder reviewmay be revised to meet current compliance requirements. Recognized by the [employer] Gastrointestinal [employer] for promoting quality in endoscopy Mike Locke MD ENDOSCOPY PROCEDURES Final Result from Last 3 Months or Most Recently Relevant to Health Maintenance Insurance [facility] C[facility] WORKERS COMPENSATION GENERIC Member Subscriber Plan / Payer (Ef fective 2022-Present) Name:Camille Shultz Relation to Subscriber:Self Name:Camille Shultz Payer ID:[id number] Group ID:Not on file Type:WORKERS COMPENSATION Address: [place] [id number] [facility] Advance Directives For more information, please contact: [phone] * Full Code (Latest Code Status on File) Date Activated Date Inactivated Comments 05/31/2023 7:40 PM 06/03/2023 9:50 PM * Full Code Date Activated Date Inactivated Comments 03/21/2023 8:03 PM 03/23/2023 12:55 PM * Full Code Date Activated Date Inactivated Comments 09/01/2020 7:59 AM 09/01/2020 1:49 PM * Full Code Date Activated Date Inactivated Comments 07/18/2017 8:32 AM 07/18/2017 12:39 PM Care Teams Assembler Insulator Relationship Specialty Start Date End Date Yancy Guerrero MD [address] [place] [address] PCP - General 05/22/16 Lupillo Reyes MD [address] [address] Consulting Physician Orthopedic Surgery 07/26/22
--- OUTSIDE RECORDS SUMMARY | 2024-06-20 17:08 | XMS_ITS | Encounter Summary ---
Author Organization [facility] Address [address] [place] [address] Phone Care Team Providers Care Spar Cap Beveler Name Role Phone Yancy Guerrero MD Primary Care Provider + [phone] Lupillo Reyes MD Unavailable [phone] Encounter Details Date Type Department Care Team (Latest Contact Info) Description 02/28/2023 Orders Only [facility] Wendy Choudhary, RN [address] [facility] [address] [place] [address] Social History Tobacco Use Types [...] on file Legal 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 PHOTOGRAPHER'S ASSISTANT Gender Identity Not on file Sexual [...] on filedocumented in this encounter Care Teams Spar Cap Beveler Relationship Specialty Start Date End Date Yancy Guerrero MD [address] [place] [address] PCP - General 05/22/16 Lupillo Reyes MD [address] [facility] [address] [place] [address] Consulting Physician Orthopedic Surgery 07/26/22 documented as of this encounter
--- OUTSIDE RECORDS SUMMARY | 2024-06-20 17:08 | XMS_ITS | Encounter Summary ---
Author Organization [facility] Address [address] [place] [address] Phone Care Team Providers Care Flame Cutting Machine Operator Name Role Phone Yancy Guerrero MD Primary Care Provider + [phone] Lupillo Reyes MD Unavailable [phone] Encounter Details Date Type Department Care Team (Latest Contact Info) Description 03/06/2023 Orders Only [facility] Wenyd Choudhary, RN [address] [facility] [address] [place] [address] Social History Tobacco Use Types [...] on file Legal 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 NEWSPAPER PHOTO EDITOR Gender Identity Not on file Sexual Orientation [...] on filedocumented in this encounter Care Teams Flame Cutting Machine Operator Relationship Specialty Start Date End Date Yancy Guerrero MD [address] [place] [address] PCP - General 05/22/16 Lupillo Reyes MD [address] [facility] [address] [place] [address] Consulting Physician Orthopedic Surgery 07/26/22 documented as of this encounter
--- OUTSIDE RECORDS SUMMARY | 2024-06-20 17:08 | XMS_ITS | Encounter Summary ---
Author Organization [facility] Address [address] [place] [address] Phone Care Team Providers Care Sales Support Administrator Name Role Phone Yancy Guerrero MD Primary Care Provider + [phone] Lupillo Reyes MD Unavailable [phone] Encounter Details Date Type Department Care Team (Latest Contact Info) Description 04/28/2023 Orders Only [facility] Wendy Choudhary, RN [address] [facility] [address] [place] [address] Social History Tobacco Use Types [...] on file Legal 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 BLACK ASH WORKER Gender Identity Not on file Sexual Orientation [...] on filedocumented in this encounter Care Teams Sales Support Administrator Relationship Specialty Start Date End Date Yancy Guerrero MD [address] [place] [address] PCP - General 05/22/16 Lupillo Reyes MD [address] [facility] [address] [place] [address] Consulting Physician Orthopedic Surgery 07/26/22 documented as of this encounter
--- OUTSIDE RECORDS SUMMARY | 2024-06-20 17:08 | XMS_ITS | Clinical Summary ---
Author Organization [facility] Address [address] [place] [address] Phone Care Team Providers Care Regional Company Truck Driver Name Role Phone Yancy Guerrero MD [...] on file Legal Sex Female 4:27 AM CHISEL TRIMMER Gender Identity Not on file Sexual Orientation Not on file Occupation Industry Job Start Date Job End Date Not on file Not on file Not on file Not on file Last Filed Vital Signs Vital Sign Reading Time Taken Comments Blood Pressure 132/89 12/30/2016 11:52 AM CHISEL TRIMMER Pulse 92 12/30/2016 11:52 AM CHISEL TRIMMER Temperature 36.9 C (98.4 F) 01/29/2009 11:30 AM CHISEL TRIMMER Respiratory Rate 16 01/29/2009 11:30 AM CHISEL TRIMMER Oxygen Saturation 93% 01/29/2009 11:30 AM CHISEL TRIMMER Inhaled Oxygen Concentration - - Weight 76.7 kg (169 lb) 12/30/2016 11:52 AM CHISEL TRIMMER Height 167.6 cm (5' 6 ) 12/30/2016 11:52 AM CHISEL TRIMMER Body Mass Index 27.28 12/30/2016 11:52 AM CHISEL TRIMMER Plan of Treatment Health Maintenance Due Date Last Done Comments DTAP/TDAP/TD VACCINES (1 - Tdap) 1980 COLORECTAL SCREENING 2006 Colorectal Cancer Screening 2006 FIT-DNA Q 3 years 2006 FIT/FOBT Q 1 year 2006 Flex Sig/CT Colonography Q 5 years 2006 ZOSTER VACCINE (1 of 2) 06/22/2011 BREAST CANCER SCREENING 10/30/2020 10/31/19, 10/05/2017, 03/04/2016, Additional history exists INFLUENZA VACCINE (#1) 2023 RSV VACCINE (60+ or ) (1 - 1-dose 75+ series) 2036 Medical Devices Implanted Type Area Certified Coder Device Identifier Shelf Expiration Date Model / Serial / Lot Sling Monarc [id number] Implanted:Qty: 1 on 01/28/2009 at [facility] Sling Pelvis [facility] [employer] [id number] / / Procedures Procedure Name Priority Date/Time [...] ASSESSMENT: BI-RADS CATEGORY 1: Negative DICTATION LOCATION: [facility] Narrative 10/31/2019 3:53 PM CDT BILATERAL [...] ASSESSMENT: BI-RADS CATEGORY 1: Negative DICTATION LOCATION: [facility] Tod [place] MD MAMMO ORDERABLES Final Result from Last 3 Months or Most Recently Relevant to Health Maintenance [place] [address] [address] [place] [address] POS II Advance Directives For more information, please contact: [phone] * Full Code (Latest Code Status on File) Date Activated Date Inactivated Comments 01/28/2009 9:06 PM 01/29/2009 4:29 PM * Full Code Date Activated Date Inactivated Comments 01/28/2009 7:38 PM 01/28/2009 9:06 PM * Full Code Date Activated Date Inactivated Comments 01/28/2009 2:46 PM 01/28/2009 7:38 PM Care Teams Regional Company Truck Driver Relationship Specialty Start Date End Date Yancy Guerrero MD [address] [place] [phone] PCP - General Internal Medicine 09/22/14
--- OUTSIDE RECORDS SUMMARY | 2024-06-20 17:09 | XMS_ITS | Continuity of Care Document ---
Author Organization [facility] Address [address] [place] [address] Phone Care Team Providers Care Glazier Metal Furniture Name Role Phone Lupillo Reyes MD Unavailable [...] Date Provider Providers Copied on Encounter [facility], [address], [id number], [place] [phone] [facility] No Information 4 Eric Wesley. [address] [address], [place], [place], [id number] , [place]. tel: [phone] [facility], [address], [id number], [place] tel:[phone] [facility] No Information 4 Eric Wesley. [address], [id number] , [place]. tel: [phone] Office/outpat ient visit,est, [facility], [address], [id number], [place] [phone] Rt Shoulder (chief complaint) Complete rotatr-cuff tear/ruptr of r shoulder, not trauma 4 Eric Wesley. [address], [id number] , [place]. tel: [phone] Office/outpat ient visit,est, [facility], [address], [id number], [place] tel:[phone] Right shoulder (chief complaint) Complete rotatr-cuff tear/ruptr of r shoulder, not trauma 3 Eric Wesley. [address] [facility] [address], [place], [place], [id number] , [place]. tel: [phone] Office/outpat ient visit,est, [facility], [address], [id number], [place] tel:[phone] Follow up (chief complaint) Complete rotatr-cuff tear/ruptr of r shoulder, not trauma 3 Eric Wesley. [address] [facility] [address], [place], [place], [id number] , [place]. tel: [phone] Office/outpat ient visit,est, mod [facility], [address] [address], [place], [place], [id number], [place] tel:[phone] [facility] [employer] Post op check up (chief complaint) Complete rotatr-cuff tear/ruptr of r shoulder, not trauma 3 Eric Wesley. [address] [facility] [address], [place], [place], [id number] , [place]. tel: [phone] [facility], [address] [place] [address], [id number], [place] tel:[phone] [facility] [employer] Right shoulder (chief complaint) Complete rotatr-cuff tear/ruptr of r shoulder, not trauma 3 Eric Wesley. [address] [facility] [address], [place], [place], [id number] , [place]. tel: [phone] [facility], [address], [id number], [place] tel:[phone] [facility] [employer] Right shoulder (chief complaint) Complete rotatr-cuff tear/ruptr of r shoulder, not trauma 3 Eric Wesley. [address] [facility], [address], [id number] , [place]. tel: [phone] [facility], [address] [place] [address], [id number], [place] tel:[phone] [facility] No Information 3 Eric Wesley. [address] [facility], [address] [address], [place], [place], [id number] , [place]. tel: [phone] [facility], [address] [place] [address], [id number], [place] tel:[phone] [facility] Complete rotatr-cuff tear/ruptr of r shoulder, not trauma 3 Eric Wesley. [address] [facility], [place], [place], [id number] , [place]. tel:[phone] Office consultation, moderate MDM [facility], [address] [facility] [address], [place], [place], [id number], [place] tel:[phone] [facility] Right shoulder muscle tear/pain (chief complaint) Complete rotatr-cuff tear/ruptr of r shoulder, not trauma 3 Erci Lupillo. [address] [facility], [address], [place], [place], [id number] , [place]. [phone] Referring Provider: Lupillo Mueller, [address] [facility] [address], [place], [address] . tel:[phone] Family History Family Member Type Diagnosis Age At Onset Father Problem (finding) Hypertension Mother Problem (finding) Hypertension Mother Problem (finding) Diabetes Father Problem (finding) Cancer, unknown Father Problem (finding) Other Immunizations Vaccine Date Status Comments influenza, injectable, quadr ivalent, (3 years or older) administered Source: Other Provid er Pneumo (2 yrs or older)(PPV) administered Source: Other Provider Payers Payer name Insurance type Covered republican ID Authoriza tion(s) [facility] Workers Compensation Adm WC [id number] Social History Type Description Quantity Date [...]
--- OUTSIDE RECORDS SUMMARY | 2024-06-20 17:09 | XMS_ITS | Encounter Summary ---
Author Organization [facility] Address [address] [place] [address] Care Team Providers Care Electrical Designer Drafter Name Role Phone Yancy Guerrero MD Primary Care Provider + Encounter Details Date Type Department Care Team (Latest Contact Info) Description 05/10/2004 Outpatient Historical HIS [facility] [place], Tod Lauren MD [address] [facility] [address] [place] [address] SCREENING MAMM-MAILG NEOPL-OTHER (Primary Dx) Social History Tobacco Use Types Packs/Day Years Used Date Smoking Tobacco: Never Assessed Comments Unknown Sex and Gender Information Value Date Recorded Sex Assigned at Not on file Legal Sex Female 4:27 AM RETAIL SALES LEAD Gender Identity Not on file Sexual Orientation Not on file documented as of this encounter Plan of Treatment Not on file documented as of this encounter Visit Diagnoses Diagnosis Other screening mammogram- Primary documented in this encounter Care Teams Electrical Designer Drafter Relationship Specialty Start Date End Date Yancy Guerrero MD [address] [place] [address] PCP - General Internal Medicine 09/22/14 documented as of this encounter
--- OUTSIDE RECORDS SUMMARY | 2024-06-20 17:09 | XMS_ITS | Encounter Summary ---
Author Organization [facility] Address [address] [place] [address] Care Team Providers Care Script Supervisor Name Role Phone Yancy Guerrero MD Primary Care Provider + Encounter Details Date Type Department Care Team (Latest Contact Info) Description 05/26/2005 Outpatient Historical HIS [facility] [place], Tod Lauren MD [address] [facility] [address] [place] [address] Other Screening Mammogram (Primary Dx) Social History Tobacco Use Types Packs/Day Years Used Date Smoking Tobacco: Never Assessed Comments Unknown Sex and Gender Information Value Date Recorded Sex Assigned at Not on file Legal Sex Female 4:27 AM SLAG DUMPER Gender Identity Not on file Sexual Orientation Not on file documented as of this encounter Plan of Treatment Not on file documented as of this encounter Visit Diagnoses Diagnosis Other screening mammogram- Primary documented in this encounter Care Teams Script Supervisor Relationship Specialty Start Date End Date Yancy Guerrero MD [address] [place] [address] PCP - General Internal Medicine 09/22/14 documented as of this encounter
--- OUTSIDE RECORDS SUMMARY | 2024-06-20 17:09 | XMS_ITS | Patient Health Record ---
Author Organization [facility] Address [address] [facility] [address] [place] [address] Care Team Providers Care Pilot Control Operator Helper Name Role Phone Yancy Guerrero MD Primary Care Provider Arcelia Mullins Unavailable [phone] Reason For Referral No Information Social History [...] Severe recurrent major depression without psychotic features (71794703) Major depressive disorder, recurrent severe without psychotic features (F33.2) Active confirmed Problem Generalized anxiety disorder (41956969) Generalized anxiety disorder (F41.1) Active confirmed Problem Posttraumatic stress disorder (80497874) PTSD (post-traumatic stress disorder) (F43.10) Active confirmed Problem Alcohol abuse (82313664) Alcohol abuse (F10.10) Active confirmed Encounters Encounter Location Date Provider Diagnosis [facility] [address] [place] [address] 01/18/2024 Arcelia Qasim Major depressive disorder, recurrent severe without psychotic features F33.2 ; Generalized anxiety disorder F41.1 and Alcohol abuse F10.10 [facility] [address] [facility] [address] [place] [address] 01/23/2024 Arcelia Tripp Major depressive disorder, recurrent severe without psychotic features F33.2 ; Generalized anxiety disorder F41.1 ; Alcohol abuse F10.10 and PTSD (post-traumatic stress disorder) F43.10 [employer] [facility], Walk[facility] [address] [facility] [address] [place] [address] 02/02/2024 Arcelia Tripp [employer] [facility], [facility] [address] [place] [address] 02/28/2024 Arcelia Tripp Major depressive disorder, recurrent severe without psychotic features F33.2 ; Generalized anxiety disorder F41.1 ; Alcohol abuse F10.10 and PTSD (post-traumatic stress disorder) F43.10 [employer] [facility] [address] [facility] [address] [place] [address] 02/13/2024 Arcelia Tripp [facility] [employer] [facility] [address] [facility] [address] [place] [address] 02/26/2024 Arcelia Tripp [facility] [employer] [facility] [address] [facility] [address] [place] [address] 03/06/2024 Arcelia Tripp Assessments Encounter Date Diagnosis (ICD Code) Assessment Notes Treatment Notes Treatment Clinical Notes Section Notes 01/18/2024 Major depressive disorder, recurrent severe without psychotic features (ICD-10 - F33.2) Marital Status: Living Arrangement: lives alone Children: 2 daughters Support System: daughters Highest Level of Education: completed college 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 History: Denied Legal History: DUI, 04/26/22 Family History of MH/RADHAMES: alcohol, anxiety, PTSD, bipolar Physical Medical Conditions: hypertension, afib, elevated lipids Spiritual Beliefs: Catholic Suicidal Ideation/Self Harm: Denied Homicidal Ideation: Denied [...] weekly support group meetings, like AA or [employer], to sustain sobriety and develop a support [...] Level of Education: completed college 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 2. Family-related Stress - [...] of local support groups, including [employer] and [employer], for additional support. 2. Family-related Stress - [...] to address underlying issues. Utilize a daily logistics planner incorporating affirmations and goals to foster [...] of the potential tear. Consult with an shipping and receiving specialist for a comprehensive evaluation and to [...] to address underlying issues. Utilize a daily logistics planner incorporating affirmations and goals to foster [...] of the potential tear. Consult with an shipping and receiving specialist for a comprehensive evaluation and to [...] a list of local support groups, including [employer] and [employer], for additional support. 2. Family-related Stress - [...] to address underlying issues. Utilize a daily logistics planner incorporating affirmations and goals to foster [...] of the potential tear. 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 2. Family-related Stress - [...] to address underlying issues. Utilize a daily logistics planner incorporating affirmations and goals to foster [...] of the potential tear. Consult with an shipping and receiving specialist for a comprehensive evaluation and to [...] Insured Coverage Start Date Coverage End Date [facility] [id number] [place] [address] [phone] [id number] Camille Hendricks Self - patient is the [...]
--- OUTSIDE RECORDS SUMMARY | 2024-06-20 17:09 | XMS_ITS | Encounter Summary ---
Author Organization [facility] Address [address] [place] [address] Phone Care Team Providers Care Skirt Panel Assembler Name Role Phone Yancy Guerrero MD Primary Care Provider + [phone] Lupillo Reyes MD Unavailable [phone] Encounter Details Date Type Department Care Team (Latest Contact Info) Description 04/10/2013 Orders Only [facility] Wendy Choudhary RN [address] [facility] [address] [place] [address] Social History Tobacco Use Types Packs/Day Years Used Date Smoking Tobacco: Never Assessed Comments Unknown Sex and Gender Information Value Date Recorded Sex Assigned at Not on file Legal 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 PILLOWCASE MAKER Gender Identity Not on file Sexual Orientation [...] COVID: Suspected 12/06/2019 12/06/2019 12/20/2019 3:05 AM PILLOWCASE MAKER COVID: Suspected 01/14/2021 01/14/2021 01/14/2021 9:43 PM PILLOWCASE MAKER COVID: Suspected 01/17/2021 01/17/2021 01/18/2021 5:33 AM PILLOWCASE MAKER COVID: Suspected 08/06/2021 08/06/2021 08/07/2021 3:05 AM CDT COVID: Suspected 08/06/2021 08/06/2021 08/07/2021 3:18 AM CDT COVID19 08/06/2021 08/06/2021 08/16/2021 3:05 AM CDT COVID: Recovered Comment:Added based on recent COVID infection. 08/16/2021 08/16/2021 12/14/2021 3:05 AM C DT COVID: Suspected 09/23/2021 09/23/2021 09/23/2021 10:56 PM CDT COVID: Suspected 09/29/2021 09/29/2021 09/29/2021 10:32 PM CDT COVID: Suspected 12/24/2021 12/25/2021 12/25/2021 3:05 AM PILLOWCASE MAKER COVID: Suspected 12/25/2021 12/25/2021 12/26/2021 3:05 AM PILLOWCASE MAKER COVID: Suspected 12/25/2021 12/25/2021 12/26/2021 3:49 PM PILLOWCASE MAKER documented as of this encounter Care Teams Skirt Panel Assembler Relationship Specialty Start Date End Date Yancy Guerrero MD [address] [place] [address] PCP - General 05/22/16 Lupillo Reyes MD [address] [address] Consulting Physician Orthopedic Surgery 07/26/22 documented as of this encounter
--- OUTSIDE RECORDS SUMMARY | 2024-06-20 17:09 | XMS_ITS | Encounter Summary ---
Author Organization [facility] Address [address] [place] [address] Phone Care Team Providers Care Hvac/R Instructor Name Role Phone Yancy Guerrero MD Primary Care Provider + [phone] Lupillo Reyes MD Unavailable [phone] Encounter Details Date Type Department Care Team (Latest Contact Info) Description 11/25/2010 Orders Only [facility] Wendy Choudhary, ISAIAS [address] [facility] [address] [place] [address] Social History Tobacco Use Types Packs/Day Years Used Date Smoking Tobacco: Never Assessed Comments Unknown Sex and Gender Information Value Date Recorded Sex Assigned at Not on file Legal 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 HAY SORTER Gender Identity Not on file Sexual Orientation [...] COVID: Suspected 12/06/2019 12/06/2019 12/20/2019 3:05 AM HAY SORTER COVID: Suspected 01/14/2021 01/14/2021 01/14/2021 9:43 PM HAY SORTER COVID: Suspected 01/17/2021 01/17/2021 01/18/2021 5:33 AM HAY SORTER COVID: Suspected 08/06/2021 08/06/2021 08/07/2021 3:05 AM CDT COVID: Suspected 08/06/2021 08/06/2021 08/07/2021 3:18 AM CDT COVID19 08/06/2021 08/06/2021 08/16/2021 3:05 AM CDT COVID: Recovered Comment:Added based on recent COVID infection. 08/16/2021 08/16/2021 12/14/2021 3:05 AM C DT COVID: Suspected 09/23/2021 09/23/2021 09/23/2021 10:56 PM CDT COVID: Suspected 09/29/2021 09/29/2021 09/29/2021 10:32 PM CDT COVID: Suspected 12/24/2021 12/25/2021 12/25/2021 3:05 AM HAY SORTER COVID: Suspected 12/25/2021 12/25/2021 12/26/2021 3:05 AM HAY SORTER COVID: Suspected 12/25/2021 12/25/2021 12/26/2021 3:49 PM HAY SORTER documented as of this encounter Care Teams Hvac/R Instructor Relationship Specialty Start Date End Date Yancy Guerrero MD [address] [place] [address] PCP - General 05/22/16 Lupillo Reyes MD [address] [address] Consulting Physician Orthopedic Surgery 07/26/22 documented as of this encounter
--- OUTSIDE RECORDS SUMMARY | 2024-06-20 17:09 | XMS_ITS ---
Author Organization [facility] [employer] [facility] Address [address] [facility] [address] [place] [address] Care Team Providers Care Hydroelectric Component Machinist Name Role Phone Cesar ROSARIO, Yancy Primary Care Provider Arcelia Mullins [phone] Social History Sex Assigned At : Social History Observation Description Sex Assigned At Female Encounters Encounter Location Date Provider Diagnosis [facility], Walk[facility] [address] [facility] [address] [place] [address] 03/06/2024 Arcelia Tripp Plan Of Treatment No Information Progress Notes * Camille KOODOB: [birth year] (63 yo F)Acc No.[id number]:03/06/2024 Patient: Anabel BARRCamille CROW Provider: Ami Tripp :1960 A ge:63 Y S ex:Female Date:03/06/2024 Phone: Address:[address] [place], [place] [id number] Pcp:Yancy Guerrero MD Data: * Chief Complaints: * Assessment: Plan: * Treatment: * Billing Information: * Visit Code: * Procedure Codes: * Electronic signature of Roman Tripp LCPC on 06/20/2024 at 05:08 PM CDT Sign off status: Pending Signatures: No Ad Hoc Signature Added * Provider: Ami Tripp Date: 03/06/2024 Generated for Veronika tovar/Dipika/eTlizett on: 0 06/20/2024 05:08 PM CDT
--- OUTSIDE RECORDS SUMMARY | 2024-06-20 17:09 | XMS_ITS | Encounter Summary ---
Author Organization [facility] Address [address] [place] [address] Care Team Providers Care Chief Ophthalmic Technician Name Role Phone Yancy Guerrero MD Primary Care Provider + Encounter Details Date Type Department Care Team (Latest Contact Info) Description 05/02/2003 Outpatient Historical HIS [facility] [place], Tod Lauren MD [address] [facility] [address] [place] [address] SCREENING MAMM-MAILG NEOPL-OTHER (Primary Dx) Social History Tobacco Use Types Packs/Day Years Used Date Smoking Tobacco: Never Assessed Comments Unknown Sex and Gender Information Value Date Recorded Sex Assigned at Not on file Legal Sex Female 4:27 AM COILER OPERATOR Gender Identity Not on file Sexual Orientation Not on file documented as of this encounter Plan of Treatment Not on file documented as of this encounter Visit Diagnoses Diagnosis Other screening mammogram- Primary documented in this encounter Care Teams Chief Ophthalmic Technician Relationship Specialty Start Date End Date Yancy Guerrero MD [address] [place] [address] PCP - General Internal Medicine 09/22/14 documented as of this encounter
--- OUTSIDE RECORDS SUMMARY | 2024-06-20 17:09 | XMS_ITS | Encounter Summary ---
Author Organization [facility] Address [address] [place] [address] Care Team Providers Care Line Haul Truck Driver Name Role Phone Yancy Guerrero MD Primary Care Provider + Encounter Details Date Type Department Care Team (Latest Contact Info) Description 01/24/2008 Outpatient Historical HIS [facility] Tod Cifuentes MD [address] [facility] [address] [place] [address] Other Screening Mammogram Social History Tobacco Use Types Packs/Day Years Used Date Smoking Tobacco: Never Assessed Comments Unknown Sex and Gender Information Value Date Recorded Sex Assigned at Not on file Legal Sex Female 4:27 AM FUEL YARD OPERATOR Gender Identity Not on file Sexual Orientation Not on file documented as of this encounter Plan of Treatment Not on file documented as of this encounter Procedures Procedure Name Priority Date/Time Associated Diagnosis Comments MAMMO SCREEN BILAT W OR WO CAD Routine 01/24/2008 9:19 AM FUEL YARD OPERATOR documented in this encounter Results * MAMMO DIGITAL SCREEN BILAT (01/24/2008 9:19 AM FUEL YARD OPERATOR) Anatomical Region Laterality Modality Breast Bilateral Other 01/24/2008 9:19 AM FUEL YARD OPERATOR Narrative 01/25/2008 7:03 PM FUEL YARD OPERATOR [facility] [address] [place], [place] [address] Admit Date: 01/24/2008 JULI KOO Sex: F Admit Prov: TOD DALLAS Date: 1960 Primary Care Prov: PCP, UNKNOWN CMRN: [id number] Room: MATTEO SSN: [id number] IMAGING SERVICES Ordering Prov: TOD DALLAS Accession Number: [id number] Interpretation BILATERAL SCREENING DIGITAL MAMMOGRAMS WITH COMPUTER [...] AMK Procedure Note Olena Christy - 01/25/2008 [address] [place], [place] [address] Admit Date: 01/24/2008 JULI KOO Sex: F Admit Prov: TOD DALLAS Date: 1960 Primary Care Prov: PCP, UNKNOWN CMRN: [id number] Room: [facility] SSN: [id number] IMAGING SERVICES Ordering Prov: TOD DALLAS Interpretation [...] mammogram documented in this encounter Care Teams Line Haul Truck Driver Relationship Specialty Start Date End Date Yancy Guerrero MD [address] [place] [address] PCP - General Internal Medicine 09/22/14 documented as of this encounter
--- OUTSIDE RECORDS SUMMARY | 2024-06-20 17:09 | XMS_ITS | Encounter Summary ---
Author Organization [facility] Address [address] [place] [address] Care Team Providers Care Director Regulatory Agency Name Role Phone Yancy Guerrero MD Primary Care Provider + Encounter Details Date Type Department Care Team (Latest Contact Info) Description 03/10/2006 Outpatient Historical HIS [facility] SRIDHAR Velázquez, [place] [address] [address] [facility] [address] [place] [address] Lump or Mass in Breast (Primary Dx) Social History Tobacco Use Types Packs/Day Years Used Date Smoking Tobacco: Never Assessed Comments Unknown Sex and Gender Information Value Date Recorded Sex Assigned at Not on file Legal Sex Female 4:27 AM COMPLIANCE PROGRAM MANAGER Gender Identity Not on file Sexual Orientation Not on file documented as of this encounter Plan of Treatment Not on file documented as of this encounter Visit Diagnoses Diagnosis Lump or mass in breast- Primary documented in this encounter Care Teams Director Regulatory Agency Relationship Specialty Start Date End Date Yancy Guerrero MD [address] [place] [phone] PCP - General Internal Medicine 09/22/14 documented as of this encounter
[2024-06-20 17:23] LABS: Glucose Point of Care 177 mg/dl (65-105)
--- NOTE | 2024-06-20 17:31 | ECG_ITS ---
Test Date: 2024-06-20 17:51:45 Measurements Intervals [place] Rate: 103 P: 27 [place]: 158 QRS: -27 QRSD: 86 T: 49 QT: 334 QTc: 438 Interpretive Statements SINUS TACHYCARDIA WITH OCCASIONAL SUPRAVENTRICULAR PREMATURE COMPLEXES BORDERLINE LEFT AXIS DEVIATION [QRS AXIS < -20] VOLTAGE CRITERIA FOR LVH [MEETS CRITERIA IN ONE OF: R(aVL), S(V1), R(V5), R(V5/V6)+S(V1)] NONSPECIFIC T-WAVE ABNORMALITY Compared to ECG 07/19/2023 11:39:14 Left ventricular hypertrophy now present Electronically Signed On 06-21-2024 12:01:34 CDT by Rajiv Key M.D.
[2024-06-20] MEDS: SODIUM CHLORIDE 0.9% IV 1,000 ML 999 ML IV CONT ×4 (17:44→20:50)
--- OUTSIDE RECORDS SUMMARY | 2024-06-20 17:44 | XMS_ITS | Encounter Summary ---
Author Organization [facility] Address [address] [place] [address] Care Team Providers Care Factory Hand Name Role Phone Yancy Guerrero MD Primary Care Provider + Encounter Details Date Type Department Care Team (Latest Contact Info) Description 05/10/2004 Outpatient Historical HIS [facility] SRIDHAR [place], Tod Lauren MD [address] [facility] [address] [place] [address] SCREENING MAMM-MAILG NEOPL-OTHER (Primary Dx) Social History Tobacco Use Types Packs/Day Years Used Date Smoking Tobacco: Never Assessed Comments Unknown Sex and Gender Information Value Date Recorded Sex Assigned at Not on file Legal Sex Female 4:27 AM QA CONSULTANT Gender Identity Not on file Sexual Orientation Not on file documented as of this encounter Plan of Treatment Not on file documented as of this encounter Visit Diagnoses Diagnosis Other screening mammogram- Primary documented in this encounter Care Teams Factory Hand Relationship Specialty Start Date End Date Yancy Guerrero MD [address] [place] [address] PCP - General Internal Medicine 09/22/14 documented as of this encounter
--- OUTSIDE RECORDS SUMMARY | 2024-06-20 17:44 | XMS_ITS | Encounter Summary ---
Author Organization [facility] Address [address] [place] [address] Care Team Providers Care Gas Pumping Station Supervisor Name Role Phone Yancy Guerrero MD Primary Care Provider + Encounter Details Date Type Department Care Team (Latest Contact Info) Description 03/10/2006 Outpatient Historical HIS [facility] SRIDHAR Velázquez, [place] [address] [facility] [address] [place] [address] Lump or Mass in Breast (Primary Dx) Social History Tobacco Use Types Packs/Day Years Used Date Smoking Tobacco: Never Assessed Comments Unknown Sex and Gender Information Value Date Recorded Sex Assigned at Not on file Legal Sex Female 4:27 AM TONGUER Gender Identity Not on file Sexual Orientation Not on file documented as of this encounter Plan of Treatment Not on file documented as of this encounter Visit Diagnoses Diagnosis Lump or mass in breast- Primary documented in this encounter Care Teams Gas Pumping Station Supervisor Relationship Specialty Start Date End Date Yancy Guerrero MD [address] [place] [phone] PCP - General Internal Medicine 09/22/14 documented as of this encounter
--- OUTSIDE RECORDS SUMMARY | 2024-06-20 17:44 | XMS_ITS | Encounter Summary ---
Author Organization [facility] Address [address] [place] [address] Phone Care Team Providers Care Production Support Engineer Name Role Phone Yancy Guerrero MD Primary Care Provider + [phone] Lupillo Reyes MD Unavailable [phone] Encounter Details Date Type Department Care Team (Latest Contact Info) Description 03/28/2023 Orders Only [facility] Wendy Choudhary, RN [address] [facility] [address] [place] [address] Social History Tobacco Use Types [...] on file Legal 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 CUSTOMER SERVICE ADVOCATE Gender Identity Not on file Sexual Orientation [...] on filedocumented in this encounter Care Teams Production Support Engineer Relationship Specialty Start Date End Date Yancy Guerrero MD [address] [place] [address] PCP - General 05/22/16 Lupillo Reyes MD [address] [facility] [address] [place] [address] Consulting Physician Orthopedic Surgery 07/26/22 documented as of this encounter
--- OUTSIDE RECORDS SUMMARY | 2024-06-20 17:44 | XMS_ITS | Encounter Summary ---
Author Organization [facility] Address [address] [place] [address] Care Team Providers Care Dependency Counselor Name Role Phone Yancy Guerrero MD Primary Care Provider + Encounter Details Date Type Department Care Team (Latest Contact Info) Description 01/24/2008 Outpatient Historical HIS [facility] Tod Cifuentes MD [address] [email or web address] [address] [place] [address] Other Screening Mammogram Social History Tobacco Use Types Packs/Day Years Used Date Smoking Tobacco: Never Assessed Comments Unknown Sex and Gender Information Value Date Recorded Sex Assigned at Not on file Legal Sex Female 4:27 AM MEDICAL CASH POSTER Gender Identity Not on file Sexual Orientation Not on file documented as of this encounter Plan of Treatment Not on file documented as of this encounter Procedures Procedure Name Priority Date/Time Associated Diagnosis Comments MAMMO SCREEN BILAT W OR WO CAD Routine 01/24/2008 9:19 AM MEDICAL CASH POSTER documented in this encounter Results * MAMMO DIGITAL SCREEN BILAT (01/24/2008 9:19 AM MEDICAL CASH POSTER) Anatomical Region Laterality Modality Breast Bilateral Other 01/24/2008 9:19 AM MEDICAL CASH POSTER Narrative 01/25/2008 7:03 PM MEDICAL CASH POSTER [facility] [address] [place], [place] [address] Admit Date: 01/24/2008 JULI KOO Sex: F Admit Prov: TOD DALLAS Date: 1960 Primary Care Prov: PCP, UNKNOWN CMRN: [id number] Room: MATTEO SSN: [id number] IMAGING SERVICES Ordering Prov: TOD DALLAS Accession Number: [id number] Interpretation BILATERAL SCREENING DIGITAL MAMMOGRAMS WITH COMPUTER [...] AMK Procedure Note Olena Christy - 01/25/2008 [facility] [address] [place], [place] [address] Admit Date: 01/24/2008 JULI KOO Sex: F Admit Prov: TOD DALLAS Date: 1960 Primary Care Prov: PCP, UNKNOWN CMRN: [id number] [facility] [id number] IMAGING SERVICES Ordering Prov: TOD DALLAS Interpretation [...] mammogram documented in this encounter Care Teams Dependency Counselor Relationship Specialty Start Date End Date Yancy Guerrero MD [address] [place] [address] PCP - General Internal Medicine 09/22/14 documented as of this encounter
--- OUTSIDE RECORDS SUMMARY | 2024-06-20 17:44 | XMS_ITS | Continuity of Care Document ---
Author Organization [facility] Address [address] [facility] [place] [address] Phone Care Team Providers Care Controller Instructor Name Role Phone Lupillo Reyes MD Unavailable [...] Date Provider Providers Copied on Encounter [facility], [address], [id number], [place] [phone] [facility] No Information [address]. [address] [address], [place], [place], [id number] , [place]. tel: [phone] [facility], [address], [id number], [place] tel:[phone] [facility] No Information 4 [address]. [address], [id number] , [place]. tel: [phone] Office/outpat ient visit[place]est, [facility], [address], [id number], [place] [phone] Rt Shoulder (chief complaint) Complete rotatr-cuff tear/ruptr of r shoulder, not trauma 4 [address]. [address], [id number] , [place]. tel: [phone] Office/outpat ient visit,est, [facility], [address], [id number], [place] tel:[phone] Right shoulder (chief complaint) Complete rotatr-cuff tear/ruptr of r shoulder, not trauma 3 [address]. [address] [facility], [address] [address], [place], [place], [id number] , [place]. tel: [phone] Office/outpat ient visit,est, [facility], [address], [id number], [place] tel:[phone] Photos Follow up (chief complaint) Complete rotatr-cuff tear/ruptr of r shoulder, not trauma 3 [address]. [address] [facility], [address] [address], [place], [place], [id number] , [place]. tel: [phone] Office/outpat ient visit,est, mod [facility], [address] [address], [place], [place], [id number], [place] tel:[phone] [facility] [employer] Post op check up (chief complaint) Complete rotatr-cuff tear/ruptr of r shoulder, not trauma 3 [address]. [address] [facility], [address] [address], [place], [place], [id number] , [place]. tel: [phone] [facility], [address] [place] [address], [id number], [place] tel:[phone] [facility] [employer] [facility] [employer] Right shoulder (chief complaint) Complete rotatr-cuff tear/ruptr of r shoulder, not trauma 3 [address]. [address] [facility], [address] [address], [place], [place], [id number] , [place]. tel: [phone] [facility], [address], [id number], [place] tel:[phone] [facility] [employer] Right shoulder (chief complaint) Complete rotatr-cuff tear/ruptr of r shoulder, not trauma 3 [address]. [address] [facility], [address], [id number] , [place]. tel: [phone] [facility], [address] [place] [address], [id number], [place] tel:[phone] [facility] No Information 3 [address]. [address] [facility], [address] [address], [place], [place], [id number] , [place]. tel: [phone] [facility], [address] [place] [address], [id number], [place] tel:[phone] [facility] Complete rotatr-cuff tear/ruptr of r shoulder, not trauma 3 [address]. [address] [facility], [address], [place], [place], [id number] , [place]. tel:[phone] Office consultation, moderate MDM [facility], [address] [facility] [address], [place], [place], [id number], [place] tel:[phone] [facility] Right shoulder muscle tear/pain (chief complaint) Complete rotatr-cuff tear/ruptr of r shoulder, not trauma 3 Eric Lupillo. [address] [facility], [address], [place], [place], [id number] , [place]. [phone] Referring Provider: Lupillo Mueller, [address] [facility] [address], [place], [address] . tel:[phone] Family History Family Member Type Diagnosis Age [...] type Covered constitution party ID Authoriza tion(s) [facility] Workers Compensation Adm WC [id number] Social History Type Description Quantity Date [...]
--- OUTSIDE RECORDS SUMMARY | 2024-06-20 17:44 | XMS_ITS | Encounter Summary ---
Author Organization [facility] Address [address] [place] [address] Phone Care Team Providers Care Flavorings Compounder Name Role Phone Yancy Guerrero MD Primary Care Provider + [phone] Lupillo Reyes MD Unavailable [phone] Encounter Details Date Type Department Care Team (Latest Contact Info) Description 04/13/2023 Orders Only [facility] Wendy Choudhary, RN [address] 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 [address] [place] [address] Consulting Physician Orthopedic Surgery 07/26/22 documented as of this encounter
--- OUTSIDE RECORDS SUMMARY | 2024-06-20 17:44 | XMS_ITS | Encounter Summary ---
Author Organization [facility] Address [address] [place] [address] Care Team Providers Care Squeegee Finisher Name Role Phone Yancy Guerrero MD Primary Care Provider + Encounter Details Date Type Department Care Team (Latest Contact Info) Description 05/26/2005 Outpatient Historical HIS [facility] SRIDHAR [place], Tod Lauren MD [address] [facility] [address] [place] [address] Other Screening Mammogram (Primary Dx) Social History Tobacco Use Types Packs/Day Years Used Date Smoking Tobacco: Never Assessed Comments Unknown Sex and Gender Information Value Date Recorded Sex Assigned at Not on file Legal Sex Female 4:27 AM CLAIMS COORDINATOR Gender Identity Not on file Sexual Orientation Not on file documented as of this encounter Plan of Treatment Not on file documented as of this encounter Visit Diagnoses Diagnosis Other screening mammogram- Primary documented in this encounter Care Teams Squeegee Finisher Relationship Specialty Start Date End Date Yancy Guerrero MD [address] [place] [address] PCP - General Internal Medicine 09/22/14 documented as of this encounter
--- OUTSIDE RECORDS SUMMARY | 2024-06-20 17:44 | XMS_ITS | Clinical Summary ---
Author Organization [facility] Address [address] [place] [address] Care Team Providers Care Repertoire Manager Name Role Phone Yancy Guerrero MD Primary Care Provider + [phone] Lupillo Reyes MD Unavailable [phone] Allergies No known active allergies Medications citalopram [...] 03/21/2023 Assessment & Plan (03/23/2023 7:20 AM POLYMER TESTER): Atenolol resumed with reasonable control Continue to hold Dyazide and losartan until outpatient follow-up HLD (hyperlipidemia) 03/21/2023 Assessment & Plan (03/22/2023 2:05 PM POLYMER TESTER): Continue atorvastatin Transaminases have normalized. Depression with anxiety 03/21/2023 Assessment & Plan (03/23/2023 7:20 AM POLYMER TESTER): Cont citalopram 40mg daily and lorazepam 0.5mg BID Resolved Problems Problem Noted Date Diagnosed Date Resolved Date Hypotension 03/21/2023 03/22/2023 Assessment & Plan (03/21/2023 8:09 PM POLYMER TESTER): - Presenting with BP 80/50s in setting of reduced PO intake and ongoing BP meds - (+)orthostatics on presentation - Hold BP meds, check orthostatics in AM - Restart meds as needed Headache 03/21/2023 03/22/2023 Assessment & Plan (03/21/2023 8:10 PM POLYMER TESTER): - Tylenol ordered; avoid NSAIDs Weakness 03/21/2023 03/23/2023 Assessment & Plan (03/22/2023 2:06 PM POLYMER TESTER): TSH and B12 within acceptable limits. Monitor symptoms as blood pressure and renal function recover Nausea 03/21/2023 03/22/2023 Assessment & Plan (03/21/2023 8:10 PM POLYMER TESTER): - Zofran ordered SUN (acute kidney injury) 03/21/2023 Assessment & Plan (03/23/2023 7:19 AM POLYMER TESTER): Creatinine improved today Check renal function and electrolytes in outpatient follow-up Continue to hold Dyazide and losartan until outpatient follow-up. Abnormal transaminases 03/21/202303/22 Assessment & Plan (03/21/2023 8:11 PM POLYMER TESTER): - Elevated in setting of recent viral infection and presumed hypovolemia - Trend in AM - if continues to be elevated consider hepatitis panel/HIV given occupation history Complete rupture of rotator cuff 07/13/2022 03/21/2023 Acute medial meniscus tear of left knee 06/25/2020 03/21/2023 Overview (06/25/2020): Added automatically from request for surgery [id number] Axillary mass, left 12/30/2016 03/21/19 24 Lipoma of forehead 11/23/2015 4 Pain in shoulder 11/12/2014 03/21/2023 Syncope 03/06/2013 03/21/2023 Encounters Date Type Department Care Team Description 06/17/2024 Telephone [facility] [address] [place] [address] [address] [place] [address] Cheryl Trujillo RN WC Intake Form 06/04/2024 Telephone [facility] [address] [place] [address] [address] [place] [address] Cheryl Trujillo RN 04/08/2024 10:20 AM POLYMER TESTER Office Visit [facility] [address] [facility] 2[address] [place] [address] Carlos Alberto Ayoub MD Impingement [...] = 0.6 oz pur e alcohol) socially [employer] Utilities Answer Date Recorded In the past 12 months has [employer], gas, oil, or water [employer] threatened to shut off services in your [...] How often do you attend chur or nondenominational services? More than 4 times per year 06/02/2023 Do you belong to any clubs o r organizations such as anabaptist groups, unions, fraternal or athletic groups, or [...] place to sleep or slept in a halfway (including now)? No 06/02/2023 Personal Safety Answer Date Recorded Have you ever been in or are you currently in a harmful physical or emotional relationship or is someone making you feel afraid or unsafe? Denies 05/31/2023 Comments No Sex and Gender Information Value Date Recorded Sex Assigned at Not on file Legal 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 POLYMER TESTER Gender Identity Not on file Sexual Orientation [...] 81.6 kg (180 lb) 04/08/2024 10:29 AM POLYMER TESTER Height 167.6 cm (5' 6 ) 04/08/2024 10:29 AM POLYMER TESTER Body Mass Index 29.05 04/08/2024 10:29 AM POLYMER TESTER Plan of Treatment Health Maintenance Due Date [...] 07/15/2020, 05/04/2020 Medical Devices Implanted Type Area Line O Scribe Operator Device Identifier Shelf Expiration Date Model / Serial / Lot [employer] Corkscrew Tigertail 5.5mm 14.[address] Mechanism Vent 2 Square [id number] - [id number] Implanted:Qty: 1 on 07/26/2022 by Lupillo Reyes MD at [facility] Right: Shoulder [employer] 02/13/2024 AR-1927BCF T / / [id number] [employer] Corkscrew Tigertail 5.5mm 14[address] Mechanism Vent 2 Square [id number] - [id number] Implanted:Qty: 1 on 07/26/2022 by Lupillo Reyes MD at [facility] Right: Shoulder [employer] 11/12/2024 AR-1927BCF T / / [id number] [employer] Swivelock C 4.75mm 19.1mm Closed Eyelet Vent [employer] Suture Ar-[id number] - [id number] Implanted:Qty: 1 on 07/26/2022 by Lupillo Reyes MD at [facility] Right: Shoulder [employer] 02/12/2026 [id number] / / [id number] Procedures Procedure Name Priority Date/Time Associated Diagnosis [...] Female Attending MD: Mike Locke MD Room: [facility] ENDOSCOPY CAPSULE Note Status: Finalized Patient [...] passed under direct vision.The Pediatric Colonoscope [id number]-[id number] was introduced through the anus and advanced [...] 9:10 AM Procedure Code(s): --- Professional --- 36128, Colonoscopy, flexible; diagnostic, including collection of specimen(s) by brushing or washing, when performed (separateprocedure) Diagnosis Code(s): --- Professional --- Z86.010, Personal history of colonic polyps K64.8, Other hemorrhoids K57.30, Diverticulosis of large intestine without perforation orabscess without bleeding CPT copyright 2017 [employer]. All rights reserved. The codes documented in this report are preliminary and upon payment rep reviewmay be revised to meet current compliance requirements. Recognized by the [employer] Society for [employer]intestinal [employer] for promoting quality in endoscopy Mike Locke MD ENDOSCOPY PROCEDURES Final Result from Last 3 Months or Most Recently Relevant to Health Maintenance Insurance [facility] [id number] [place] [address] [facility] WORKERS COMPENSATION GENERIC Member Subscriber Plan / Payer (Ef fective 2022-Present) Name:Camille Shultz Relation to Subscriber:Self Name:Camille Shultz Payer ID:[id number] Group ID:Not on file Type:WORKERS COMPENSATION Address: [place] [id number] [facility] Advance Directives For more information, please contact: [phone] * Full Code (Latest Code Status on File) Date Activated Date Inactivated Comments 05/31/2023 7:40 PM 06/03/2023 9:50 PM * Full Code Date Activated Date Inactivated Comments 03/21/2023 8:03 PM 03/23/2023 12:55 PM * Full Code Date Activated Date Inactivated Comments 09/01/2020 7:59 AM 09/01/2020 1:49 PM * Full Code Date Activated Date Inactivated Comments 07/18/2017 8:32 AM 07/18/2017 12:39 PM Care Teams Repertoire Manager Relationship Specialty Start Date End Date Yancy Guerrero MD [address] [place] [address] PCP - General 05/22/16 Lupillo Reyes MD [address] [address] Consulting Physician Orthopedic Surgery 07/26/22
--- OUTSIDE RECORDS SUMMARY | 2024-06-20 17:44 | XMS_ITS | Encounter Summary ---
Author Organization [facility] Address [address] [place] [address] Phone Care Team Providers Care Steam Press Operator Name Role Phone Yancy Guerrero MD Primary Care Provider + [phone] Lupillo Reyes MD Unavailable Encounter Details Date Type Department Care Team (Latest Contact Info) Description 11/25/2010 Orders Only [facility] Wendy Choudhary, ISAIAS [address] [facility] [address] [place] [address] Social History Tobacco Use Types Packs/Day Years Used Date Smoking Tobacco: Never Assessed Comments Unknown Sex and Gender Information Value Date Recorded Sex Assigned at Not on file Legal 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 LINEWORKER Gender Identity Not on file Sexual Orientation [...] COVID: Suspected 12/06/2019 12/06/2019 12/20/2019 3:05 AM LINEWORKER COVID: Suspected 01/14/2021 01/14/2021 01/14/2021 9:43 PM LINEWORKER COVID: Suspected 01/17/2021 01/17/2021 01/18/2021 5:33 AM LINEWORKER COVID: Suspected 08/06/2021 08/06/2021 08/07/2021 3:05 AM CDT COVID: Suspected 08/06/2021 08/06/2021 08/07/2021 3:18 AM CDT COVID19 08/06/2021 08/06/2021 08/16/2021 3:05 AM CDT COVID: Recovered Comment:Added based on recent COVID infection. 08/16/2021 08/16/2021 12/14/2021 3:05 AM C DT COVID: Suspected 09/23/2021 09/23/2021 09/23/2021 10:56 PM CDT COVID: Suspected 09/29/2021 09/29/2021 09/29/2021 10:32 PM CDT COVID: Suspected 12/24/2021 12/25/2021 12/25/2021 3:05 AM LINEWORKER COVID: Suspected 12/25/2021 12/25/2021 12/26/2021 3:05 AM LINEWORKER COVID: Suspected 12/25/2021 12/25/2021 12/26/2021 3:49 PM LINEWORKER documented as of this encounter Care Teams Steam Press Operator Relationship Specialty Start Date End Date Yancy Guerrero MD [address] [place] [address] PCP - General 05/22/16 Lupillo Reyes MD [address] [address] Consulting Physician Orthopedic Surgery 07/26/22 documented as of this encounter
--- OUTSIDE RECORDS SUMMARY | 2024-06-20 17:44 | XMS_ITS | Encounter Summary ---
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
--- OUTSIDE RECORDS SUMMARY | 2024-06-20 17:44 | XMS_ITS | Encounter Summary ---
Author Organization [facility] Address [address] [place] [address] Phone Care Team Providers Care Smoke Control Supervisor Name Role Phone Yancy Guerrero MD Primary Care Provider + [phone] Lupillo Reyes MD Unavailable [phone] Encounter Details Date Type Department Care Team (Latest Contact Info) Description 03/06/2023 Orders Only [facility] Wendy Choudhary, RN [address] [facility] [address] [place] [address] Social History Tobacco Use Types [...] on file Legal 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
--- OUTSIDE RECORDS SUMMARY | 2024-06-20 17:44 | XMS_ITS | CONTINUITY OF CARE DOCUMENT ---
Author Name emerald corbin Address Unknown Organization [facility] Address [address] [place] [address] [address] [place] [address] Phone [phone] Care Team Providers Care Jordan Worker Name Role Phone Prabhu ROSARIO, Tha Unavailable INSURANCE PROVIDERS Payer name Policy type / Coverage type Mcdonald red constitution party ID LES[facility] [employer] insurance [employer] [id number]
--- OUTSIDE RECORDS SUMMARY | 2024-06-20 17:44 | XMS_ITS | Referral Summary ---
Author Organization [facility] Address [address] [place] [address] Care Team Providers Care Supervisor Shearing Name Role Phone Yancy Guerrero MD Primary Care Provider [phone] Lupillo Reyes MD Unavailable [phone] Encounters Date Type Department Care Team Description 06/17/2024 Telephone [facility] Orthopaedic Surgery [address] [place] [address] Floor [address] [place] [address] Cheryl Trujillo RN Intake Form 06/04/2024 Telephone [facility] Orthopaedic Surgery [address] [place] [address] [address] [place] [address] Cheryl Trujillo RN 04/08/2024 10:20 AM HIGH SCHOOL AUTO REPAIR TEACHER Office Visit [facility] Orthopaedic Surgery [address] [place] [address] [address] [place] [phone] Carlos Alberto Ayoub MD Impingement of right [...] 03/21/2023 Assessment & Plan (03/23/2023 7:20 AM HIGH SCHOOL AUTO REPAIR TEACHER): Atenolol resumed with reasonable control Continue to hold Dyazide and losartan until outpatient follow-up HLD (hyperlipidemia) 03/21/2023 Assessment & Plan (03/22/2023 2:05 PM HIGH SCHOOL AUTO REPAIR TEACHER): Continue atorvastatin Transaminases have normalized. Depression with anxiety 03/21/2023 Assessment & Plan (03/23/2023 7:20 AM HIGH SCHOOL AUTO REPAIR TEACHER): Cont citalopram 40mg daily and lorazepam 0.5mg BID Resolved Problems Problem Noted Date Diagnosed Date Resolved Date Hypotension 03/21/2023 03/22/2023 Assessment & Plan (03/21/2023 8:09 PM HIGH SCHOOL AUTO REPAIR TEACHER): - Presenting with BP 80/50s in setting of reduced PO intake and ongoing BP meds - (+)orthostatics on presentation - Hold BP meds, check orthostatics in AM - Restart meds as needed Headache 03/21/2023 03/22/2023 Assessment & Plan (03/21/2023 8:10 PM HIGH SCHOOL AUTO REPAIR TEACHER): - Tylenol ordered; avoid NSAIDs Weakness 03/21/2023 03/23/2023 Assessment & Plan (03/22/2023 2:06 PM HIGH SCHOOL AUTO REPAIR TEACHER): TSH and B12 within acceptable limits. Monitor symptoms as blood pressure and renal function recover Nausea 03/21/2023 03/22/2023 Assessment & Plan (03/21/2023 8:10 PM HIGH SCHOOL AUTO REPAIR TEACHER): - Zofran ordered SUN (acute kidney injury) 03/21/2023 Assessment & Plan (03/23/2023 7:19 AM HIGH SCHOOL AUTO REPAIR TEACHER): Creatinine improved today Check renal function and electrolytes in outpatient follow-up Continue to hold Dyazide and losartan until outpatient follow-up. Abnormal transaminases 03/21/202303/22 Assessment & Plan (03/21/2023 8:11 PM HIGH SCHOOL AUTO REPAIR TEACHER): - Elevated in setting of recent viral infection and presumed hypovolemia - Trend in AM - if continues to be elevated consider hepatitis panel/HIV given occupation history Complete rupture of rotator cuff 07/13/2022 03/21/2023 Acute medial meniscus tear of left knee 06/25/2020 03/21/2023 Overview (06/25/2020): Added automatically from request for surgery [id number] Axillary mass, left 12/30/2016 03/21/19 24 Lipoma [...] drink = 0.6 oz pur e alcohol) [employer] Answer Date Recorded In the past 12 months has [employer], gas, oil, or water [employer] threatened to shut off services in your [...] often do you attend chur ch or quaker services? More than 4 times per year 06/02/2023 Do you belong to any clubs o r organizations such as lutheran groups, unions, fraternal or athletic groups, or [...] place to sleep or slept in a correction (including now)? No 06/02/2023 Personal Safety Answer Date Recorded Have you ever been in or are you currently in a harmful physical or emotional relationship or is someone making you feel afraid or unsafe? Denies 05/31/2023 Comments No Sex and Gender Information Value Date Recorded Sex Assigned at Not on file Legal 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 HIGH SCHOOL AUTO REPAIR TEACHER Gender Identity Not on file Sexual [...] 81.6 kg (180 lb) 04/08/2024 10:29 AM HIGH SCHOOL AUTO REPAIR TEACHER Height 167.6 cm (5' 6 ) 04/08/2024 10:29 AM HIGH SCHOOL AUTO REPAIR TEACHER Body Mass Index 29.05 04/08/2024 10:29 AM HIGH SCHOOL AUTO REPAIR TEACHER Plan of Treatment Not on file Medical Devices Implanted Type Area Vending Machine Servicer Device Identifier Shelf Expiration Date Model / Serial / Lot [employer] Corkscrew Tigertail 5.5mm 14[address] Mechanism Vent 2 Square [id number] - [id number] Implanted:Qty: 1 on 07/26/2022 by Lupillo Reyes MD at [facility] Right: Shoulder [employer] 02/13/2024 [id number] T / / [id number] [employer] Corkscrew Tigertail 5.5mm 14[address] Mechanism Vent 2 Square [id number] - [id number] Implanted:Qty: 1 on 07/26/2022 by Lupillo Reyes MD at [facility] Right: Shoulder [employer] 11/12/2024 AR-[id number] T / / [id number] [employer] Swivelock C 4.75mm 19.1mm Closed Eyelet Vent [place] Suture Ar-[id number] - [id number] Implanted:Qty: 1 on 07/26/2022 by Lupillo Reyes MD at [facility] Right: Shoulder [employer] 02/12/2026 [id number] / / [id number] Procedures Procedure Name Priority Date/Time Associated Diagnosis Comments COLONOSCOPY 07/18/2017 9:10 AM CDT from Last 3 Months or Most Recently Relevant to Health Maintenance Results * COLONOSCOPY (07/18/2017 9:10 AM CDT) Anatomical Region Laterality Modality Other Narrative Procedure Note Mike Locke MD - 07/18/2017 9:[address] [facility] Patient Name: Camille Shultz Procedure Date: 07/18/2017 9:10 AM Date of : 1960 Admit Type: Outpatient Age: 57 Gender: Female Attending MD: Mike Locke MD Room: [facility] ENDOSCOPY CAPSULE Note Status: Finalized Patient [...] passed under direct vision.The Pediatric Colonoscope [id number]-[id number] was introduced through the anus and advanced [...] 9:10 AM Procedure Code(s): --- Professional --- 65515, Colonoscopy, flexible; diagnostic, including collection of specimen(s) by brushing or washing, when performed (separateprocedure) Diagnosis Code(s): --- Professional --- Z86.010, Personal history of colonic polyps K64.8, Other hemorrhoids K57.30, Diverticulosis of large intestine without perforation orabscess without bleeding CPT copyright 2017 [employer]. All rights reserved. The codes documented in this report are preliminary and upon remote coders reviewmay be revised to meet current compliance requirements. Recognized by the [employer] for promoting quality in endoscopy Mike Locke MD ENDOSCOPY PROCEDURES Final Result from Last 3 Months or Most Recently Relevant to Health Maintenance Insurance [facility] CMR [facility] CMR [facility] CMR WORKERS COMPENSATION GENERIC Member Subscriber Plan / Payer (Ef fective 2022-Present) Name:Camille Shultz Relation to Subscriber:Self Name:Camille Shultz Payer ID:[id number] Group ID:Not on file Type:WORKERS COMPENSATION Address: [place] [id number] [facility] Advance Directives For more information, please contact: [phone] * Full Code (Latest Code Status on File) Date Activated Date Inactivated Comments 05/31/2023 7:40 PM 06/03/2023 9:50 PM * Full Code Date Activated Date Inactivated Comments 03/21/2023 8:03 PM 03/23/2023 12:55 PM * Full Code Date Activated Date Inactivated Comments 09/01/2020 7:59 AM 09/01/2020 1:49 PM * Full Code Date Activated Date Inactivated Comments 07/18/2017 8:32 AM 07/18/2017 12:39 PM Care Teams Supervisor Shearing Relationship Specialty Start Date End Date Yancy Guerrero MD [address] [place] [address] PCP - General 05/22/16 Lupillo Reyes MD [address] [address] Consulting Physician Orthopedic Surgery 07/26/22
--- OUTSIDE RECORDS SUMMARY | 2024-06-20 17:44 | XMS_ITS | Clinical Summary ---
Author Organization [facility] Address [address] [place] [address] Phone Care Team Providers Care Senior Chemical Engineer Name Role Phone Yancy Guerrero MD [...] on file Legal Sex Female 4:27 AM BOAT BUFFER PLASTIC Gender Identity Not on file Sexual Orientation Not on file Occupation Industry Job Start Date Job End Date Not on file Not on file Not on file Not on file Last Filed Vital Signs Vital Sign Reading Time Taken Comments Blood Pressure 132/89 12/30/2016 11:52 AM BOAT BUFFER PLASTIC Pulse 92 12/30/2016 11:52 AM BOAT BUFFER PLASTIC Temperature 36.9 C (98.4 F) 01/29/2009 11:30 AM BOAT BUFFER PLASTIC Respiratory Rate 16 01/29/2009 11:30 AM BOAT BUFFER PLASTIC Oxygen Saturation 93% 01/29/2009 11:30 AM BOAT BUFFER PLASTIC Inhaled Oxygen Concentration - - Weight 76.7 kg (169 lb) 12/30/2016 11:52 AM BOAT BUFFER PLASTIC Height 167.6 cm (5' 6 ) 12/30/2016 11:52 AM BOAT BUFFER PLASTIC Body Mass Index 27.28 12/30/2016 11:52 AM BOAT BUFFER PLASTIC Plan of Treatment Health Maintenance Due Date [...] series) 2036 Medical Devices Implanted Type Area Communications Marketing Intern Device Identifier Shelf Expiration Date Model / Serial / Lot Sling Monarc [id number] Implanted:Qty: 1 on 01/28/[address] [facility] Sling Pelvis [facility] [employer] [id number] / / Procedures Procedure Name Priority Date/Time [...] ASSESSMENT: BI-RADS CATEGORY 1: Negative DICTATION LOCATION: [facility] Narrative 10/31/2019 3:53 PM CDT BILATERAL [...] ASSESSMENT: BI-RADS CATEGORY 1: Negative DICTATION LOCATION: [facility] Tod [place] MD MAMMO ORDERABLES Final Result from Last 3 Months or Most Recently Relevant to Health Maintenance [place] [id number] [place] Advance Directives For more information, please contact: [phone] * Full Code (Latest Code Status on File) Date Activated Date Inactivated Comments 01/28/2009 9:06 PM 01/29/2009 4:29 PM * Full Code Date Activated Date Inactivated Comments 01/28/2009 7:38 PM 01/28/2009 9:06 PM * Full Code Date Activated Date Inactivated Comments 01/28/2009 2:46 PM 01/28/2009 7:38 PM Care Teams Senior Chemical Engineer Relationship Specialty Start Date End Date Yancy Guerrero MD [address] [place] [phone] PCP - General Internal Medicine 09/22/14
--- OUTSIDE RECORDS SUMMARY | 2024-06-20 17:44 | XMS_ITS | Encounter Summary ---
Author Organization [facility] Address [address] [place] [address] Phone Care Team Providers Care Private Household Worker Name Role Phone Yancy Guerrero MD Primary Care Provider + [phone] Lupillo Reyes MD Unavailable [phone] Encounter Details Date Type Department Care Team (Latest Contact Info) Description 04/28/2023 Orders Only [facility] Wendy Choudhary, RN [address] [facility] [address] [place] [address] Social History Tobacco Use Types [...] on file Legal 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 DIRECTOR CHECK Gender Identity Not on file Sexual Orientation [...] on filedocumented in this encounter Care Teams Private Household Worker Relationship Specialty Start Date End Date Yancy Guerrero MD [address] [place] [address] PCP - General 05/22/16 Lupillo Reyes MD [address] [facility] [address] [place] [address] Consulting Physician Orthopedic Surgery 07/26/22 documented as of this encounter
--- OUTSIDE RECORDS SUMMARY | 2024-06-20 17:44 | XMS_ITS | Encounter Summary ---
Author Organization [facility] Address [address] [place] [address] Phone Care Team Providers Care Records Specialist Name Role Phone Yancy Guerrero MD Primary Care Provider + [phone] Lupillo Reyes MD Unavailable [phone] Encounter Details Date Type Department Care Team (Latest Contact Info) Description 04/10/2013 Orders Only [facility] Wendy Choudhary RN [address] [facility] [address] [place] [address] Social History Tobacco Use Types Packs/Day Years Used Date Smoking Tobacco: Never Assessed Comments Unknown Sex and Gender Information Value Date Recorded Sex Assigned at Not on file Legal 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 BI CONSULTANT Gender Identity Not on file Sexual Orientation Not on file documented as of this encounter Plan of Treatment Not on file documented as of this encounter Procedures Procedure Name Priority Date/Time Associated Diagnosis Comments CARDIOLOGY DOCUMENT SCAN 04/10/2013 documented in this encounter Results * Cardiology Document Scan (04/10/2013) Anatomical Region Laterality Modality Other us eWndy Choudhary RN CV CARDIAC SERVICES P ROCEDURES Final Result documented in this encounter Visit Diagnoses Not on filedocumented in this encounter Additional Health Concerns Infection Onset Date Last Indicated Resolved Time COVID19 05/14/2019 05/14/2019 05/15/2019 11:2 1 AM CDT COVID: Suspected 12/06/2019 12/06/2019 12/20/2019 3:05 AM BI CONSULTANT COVID: Suspected 01/14/2021 01/14/2021 01/14/2021 9:43 PM BI CONSULTANT COVID: Suspected 01/17/2021 01/17/2021 01/18/2021 5:33 AM BI CONSULTANT COVID: Suspected 08/06/2021 08/06/2021 08/07/2021 3:05 AM CDT COVID: Suspected 08/06/2021 08/06/2021 08/07/2021 3:18 AM CDT COVID19 08/06/2021 08/06/2021 08/16/2021 3:05 AM CDT COVID: Recovered Comment:Added based on recent COVID infection. 08/16/2021 08/16/2021 12/14/2021 3:05 AM C DT COVID: Suspected 09/23/2021 09/23/2021 09/23/2021 10:56 PM CDT COVID: Suspected 09/29/2021 09/29/2021 09/29/2021 10:32 PM CDT COVID: Suspected 12/24/2021 12/25/2021 12/25/2021 3:05 AM BI CONSULTANT COVID: Suspected 12/25/2021 12/25/2021 12/26/2021 3:05 AM BI CONSULTANT COVID: Suspected 12/25/2021 12/25/2021 12/26/2021 3:49 PM BI CONSULTANT documented as of this encounter Care Teams Records Specialist Relationship Specialty Start Date End Date Yancy Guerrero MD [address] [place] [address] PCP - General 05/22/16 Lupillo Reyes MD [address] [address] Consulting Physician Orthopedic Surgery 07/26/22 documented as of this encounter
--- OUTSIDE RECORDS SUMMARY | 2024-06-20 17:44 | XMS_ITS | Encounter Summary ---
Author Organization [facility] Address [address] [place] [address] Phone Care Team Providers Care Marriage Counselor Name Role Phone Yancy Guerrero MD Primary Care Provider + [phone] Lupillo Reyes MD Unavailable [phone] Encounter Details Date Type Department Care Team (Latest Contact Info) Description 04/03/2023 Orders Only [facility] Wendy Choudhary, RN [address] [facility] [address] [place] [address] Social History Tobacco Use Types [...] on file Legal 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 ESTIMATOR PRINTING Gender Identity Not on file Sexual Orientation [...] on filedocumented in this encounter Care Teams Marriage Counselor Relationship Specialty Start Date End Date Yancy Guerrero MD [address] [place] [address] PCP - General 05/22/16 Lupillo Reyes MD [address] [facility] [address] [place] [address] Consulting Physician Orthopedic Surgery 07/26/22 documented as of this encounter
--- OUTSIDE RECORDS SUMMARY | 2024-06-20 17:44 | XMS_ITS | Encounter Summary ---
Author Organization [facility] Address [address] [place] [address] Care Team Providers Care Stoker Installation Mechanic Name Role Phone Yancy Guerrero MD Primary Care Provider + Encounter Details Date Type Department Care Team (Latest Contact Info) Description 05/02/2003 Outpatient Historical HIS [facility] SRID[facility]AR [place], Tod Lauren MD [address] [facility] [address] [place] [phone] SCREENING MAMM-MAILG NEOPL-OTHER (Primary Dx) Social History Tobacco Use Types Packs/Day Years Used Date Smoking Tobacco: Never Assessed Comments Unknown Sex and Gender Information Value Date Recorded Sex Assigned at Not on file Legal Sex Female 4:27 AM ROUSTABOUT HAND Gender Identity Not on file Sexual Orientation Not on file documented as of this encounter Plan of Treatment Not on file documented as of this encounter Visit Diagnoses Diagnosis Other screening mammogram- Primary documented in this encounter Care Teams Stoker Installation Mechanic Relationship Specialty Start Date End Date Yancy Guerrero MD [address] [place] [address] PCP - General Internal Medicine 09/22/14 documented as of this encounter
[2024-06-20 17:51] LABS: Basophils Absolute Auto 0.04 K/mm3 (0.00-0.10); Basophils Percent Auto 0.3 % (0.0-1.0); Eosinophils Absolute Auto 0.03 K/mm3 (0.02-0.50); Eosinophils Percent Auto 0.2 % (1.0-6.0); Hematocrit 38.8 % (35.0-49.0); Immature Granulocyte Absolute 0.09 K/mm3 (0.00-0.00); Immature Granulocyte Percent A 0.7 % (0.0-0.0); Lymphocytes Absolute Auto 1.15 K/mm3 (1.10-4.50); Lymphocytes Percent Auto 9.2 % (18.0-42.0); Mean Corpuscular HGB Conc 33.5 g/dL (32-36); Mean Corpuscular Hemoglobin 31.4 pg (27.0-31.0); Mean Corpuscular Volume 93.7 fL (78.0-102.0); Mean Platelet Volume 9.6 fl (9.2-11.8); Monocytes Absolute Auto 0.83 K/mm3 (0.10-0.90); Monocytes Percent Auto 6.7 % (2.0-11.0); Neutrophils Absolute Auto 10.31 K/mm3 (1.70-7.20); Neutrophils Percent Auto 82.9 % (50.0-70.0); Nucleated Red Blood Cells Absolute Auto 0.03 K/mm3 (0.00-0.00); Nucleated Red Blood Cells Perc 0.2 % (0-0.0); Platelet Count Result 183 K/mm3 (150-420); Red Blood Count 4.14 M/mm3 (4.20-5.40); Red Cell Distribution Width 13.4 % (11.6-14.4); White Blood Count 12.5 K/mm3 (4.8-10.8)
--- NOTE | 2024-06-20 18:01 | PC.NURSE ---
tech placed pt on bedpan for urine specimen. pt unable to urinate at this time
[2024-06-20 18:06] LABS: Partial Thromboplastin Time 34.4 Sec (23.9-30.70); Prothrombin Time 10.6 Seconds (9.50-12.1)
[2024-06-20 18:08] LABS: Alanine Aminotransferase 24 U/L (6-35); Albumin Level 3.7 g/dL (3.5-5.1); Alkaline Phosphatase 70 U/L (38-126); Anion Gap 10 mmol/L (4-12); Aspartate Amino Transferase 36 U/L (14-36); Blood Urea Nitrogen 21 mg/dL (7-17); CRP > 9.0 mg/dL (<1.0); Calcium 8.2 mg/dL (8.4-10.2); Carbon Dioxide 23 mmol/L (22-30); Chloride 100 mmol/L (98-107); Estimated CRCL calculation 29 ml/min; Estimated Glomerular Filt Rate 27; Glucose 148 mg/dL (65-110); Osmolality Calculated 282 mOsm/kg (285-295); Potassium 2.9 mmol/L (3.4-5.0); Sodium 133 mmol/L (137-145); Total Protein 6.8 g/dL (6.3-8.2)
[2024-06-20 18:10] LABS: Lactic Acid Reflex 1.7 mmol/L (0.4-2.0)
[2024-06-20] MEDS: KCL 20 MEQ/SW 100 ML 100 ML 50 MEQ IVPB (18:18)
[2024-06-20 18:20] LABS: Ammonia < 9 umol/L (9-30); Ethanol < 10 mg/dL (<10)
[2024-06-20 18:28] LABS: Influenza A QL RT-PCR Negative (Negative); Influenza B QL RT-PCR Negative (Negative); RSV RNA, RT-PCR Negative (Negative); SARS-CoV-2 RNA PCR Negative (Negative)
[2024-06-20 19:33] LABS: Add Urine Microscopic? YES; Appearance Urine Clear (Clear); Bilirubin Urine 1+ (Negative); Blood Urine 2+ (Negative); Color Urine Yellow (Yellow); Glucose Urine UA Negative (Negative); Ketones Urine 1+ (Negative); Leukocyte Esterase Ur 1+ LEU/UL (Negative); Nitrate Urine Negative (Negative); Protein Urine 3+ (Negative); Specific Grav Ur 1.025 (1.010-1.020); pH Urine 5.5 (5.0-8.0)
[2024-06-20 19:45] LABS: Bacteria Urine 3+ /hpf; RBC Urine >75 /hpf (0-2); Squamous Epithelial Cell Urine None seen /hpf (Few); WBC Urine >75 /hpf (0-3)
[2024-06-20 19:47] LABS: Amphetamine Screen Urine Negative (Negative); Barbiturate Screen Urine Negative (Negative); Benzodiazepines Screen Urine Negative (Negative); Cannabinoid Screen Urine Negative (Negative); Cocaine Screen Urine Negative (Negative); Methadone Screen Urine Negative (Negative); Opiate Screen Urine Negative (Negative); Phencyclidine Screen Urine Negative (Negative)
--- NOTE | 2024-06-20 19:52 | ED_ITS ---
HPI - Altered Mental Status General Chief Complaint: Abdominal Pain Stated Complaint: urogenital female Time Seen by Provider: 06/20/24 17:11 Source: patient and family Mode of arrival: wheelchair Limitations: physical limitation History of Present Illness HPI narrative: this is a 63-year-old female with a history of AFib hypertension alcohol abuse history of depression presents to the ER with 5 day history of dysuria with some fever and chills with no nausea vomiting there is some mild flank pain advised side with no hematuria no chest pain or shortness of breath. MD complaint: altered mental status Onset (ago): day(s) Timing confirmed by: family member Severity: moderate Consistency of symptoms: constant Context: alcohol abuse Associated symptoms: other ( dysuria) Related Data Home Medications ?Medication ?Instructions ?Recorded ?Confirmed ?Last Taken ?Type citalopram 20 mg tablet (Celexa) 40 mg PO DAILY 02/25/19 07/19/23 Unknown History lorazepam 0.5 mg tablet (Ativan) 0.5 mg PO PRN PRN Anxiety 12/14/22 07/19/23 Unknown History trazodone 100 mg tablet 100 mg PO HS 05/29/23 06/12/23 Unknown History potassium chloride 10 mEq 10 meq PO DAILY 05/31/23 07/19/23 Unknown History capsule,extended release amlodipine 5 mg tablet 5 mg PO DAILY 06/12/23 07/19/23 Unknown History atorvastatin 40 mg tablet 80 mg PO DAILY 06/12/23 07/19/23 Unknown History losartan 25 mg tablet (Cozaar) 50 mg PO DAILY 06/12/23 07/19/23 Unknown History metoprolol succinate 25 mg 75 mg PO DAILY 06/12/23 07/19/23 Unknown History tablet,extended release 24 hr Allergies Allergy/AdvReac Type Severity Reaction Status Date / Time No Known Allergies Allergy Verified 06/20/24 17:18 Review of Systems 2 Review of Systems: All systems reviewed & are unremarkable except as noted in HPI and below PMFSH Past Medical History Medical History Endometriosis Anxiety Tachycardia HTN (hypertension) Surgical History Surgical History History of LAVH Family History Family History Father , father at age 62 of mesothelioma Mesothelioma FH: carotid endarterectomy Hyperlipidemia Diabetes mellitus Hypertension Heart disease Mother Congestive heart failure Acute myocardial infarction due to NE Hypertension Heart disease Daughter Depression PTSD (post-traumatic stress disorder) Sibling Grand mal seizure S/P CABG x 5 Diabetes mellitus Sibling Hypertension Diabetes mellitus Sibling Diabetes mellitus Social History Social History Smoking status: Current every day smoker Second hand tobacco smoke exposure: Yes Alcohol intake: current Drinks per week: 1 Substance use: never Substance use type: does not use Do You Feel Safe in your Home?: Yes Lack of Transportation: No Lack of Food: Never True Current Housing: I Have Housing Concerned About Future Housing: No Difficulty Paying Gas/Electric Bills: No Difficulty Paying for Meds: No Currently Unemployed: No Education: Associate Degree Difficulty w/ Childcare or Family Care: No Gender identity (if verbalized by the patient): Female Spiritual care concerns: Yes Agree to blood products: Yes Exam 2 Const: General: healthy appearing and ill appearing Nutritional Appearance: well nourished Limitations: no limitations and altered mental status Eyes: Conjunctivae: conjunctivae normal Neck: Neck: normal visual inspection, no lymphadenopathy and no meningeal signs Chest: Chest palpation & inspection: normal inspection of the chest Resp: Effort & Inspection: normal respiratory effort Auscultation: clear to auscultation bilaterally Cardio: Rate: regular rate Rhythm: regular rhythm GI: GI Palp: Yes Soft to palpation : General: Yes CVA tenderness Urinary Catheter: Urinary Catheter: patent and draining and urine cloudy Back/Spine/Pelvis: Back: CVA tenderness Skin: General skin exam: normal color Neuro: General: patient oriented x3, moves all extremities, no meningeal signs, no focal motor deficits and CN's II-XI intact bilaterally Extrem: General: normal to inspection and no clubbing, cyanosis or edema Psych: Affect: Anxious affect present Course Course Emergency Course: Patient with some dysuria and had a urinalysis performed which was positive for UTI, patient is hypotensive and has received 3L normal saline, white count is 12.3 with a CRP of greater than 9 lactic acid is normal. Patient has a potassium level of 2.9 and replaced with the K rider, with acute renal insufficiency with a creatinine of 1.88. Patient had a CT scan of the abdomen which does show a 8mm mid right ureter stone with hydroureteronephrosis. Patient started on Levaquin IV. Spoke to Urology at [facility] and accepted patient for ER to ER transfer, spoke to Dr. Collins in the emergency department upon his hospital that accepted the patient for transfer. Vital Signs Vital signs: Vital Signs Temperature 36.2 C L 06/20/24 17:10 Pulse Rate 100 06/20/24 17:10 Respiratory Rate 18 06/20/24 17:10 Blood Pressure 95/52 L 06/20/24 17:10 Pulse Oximetry 92 06/20/24 17:10 Oxygen Delivery Room Air 06/20/24 17:10 Temperature 37.2 C 06/20/24 19:01 Pulse Rate 85 06/20/24 19:01 Respiratory Rate 22 H 06/20/24 19:01 Blood Pressure 128/69 06/20/24 19:01 Pulse Oximetry 90 06/20/24 19:01 Oxygen Delivery Nasal Cannula 06/20/24 18:54 Oxygen Flow Rate 2 06/20/24 18:54 MDM - Altered Mental Status Lab Data 06/20/24 17:46 06/20/24 17:46 Labs: Lab Results 06/20/24 06/20/24 06/20/24 Range/Units 17:21 17:40 17:46 WBC 12.5 H (4.8-10.8) K/mm3 RBC 4.14 L (4.20-5.40) M/mm3 Hgb 13.0 (12.0-15.0) g/dL Hct 38.8 (35.0-49.0) % MCV 93.7 (78.0-102.0) fL MCH 31.4 H (27.0-31.0) pg MCHC 33.5 (32-36) g/dL RDW 13.4 (11.6-14.4) % Plt Count 183 (150-420) K/mm3 MPV 9.6 (9.2-11.8) fl Immature Gran % (Auto) 0.7 H (0.0-0.0) % Neut % (Auto) 82.9 H (50.0-70.0) % Lymph % (Auto) 9.2 L (18.0-42.0) % [place] % (Auto) 6.7 (2.0-11.0) % Eos % (Auto) 0.2 L (1.0-6.0) % Baso % (Auto) 0.3 (0.0-1.0) % Lymph # (Auto) 1.15 (1.10-4.50) K/mm3 [place] # (Auto) 0.83 (0.10-0.90) K/mm3 Eos # (Auto) 0.03 (0.02-0.50) K/mm3 Baso # (Auto) 0.04 (0.00-0.10) K/mm3 Abs Immat Gran (auto) 0.09 H (0.00-0.00) K/mm3 Absolute Neuts (auto) 10.31 H (1.70-7.20) K/mm3 Absolute Nucleated RBC 0.03 H (0.00-0.00) K/mm3 Nucleated RBC % 0.2 H (0-0.0) % PT 10.6 (9.50-12.1) Seconds INR 1.0 APTT 34.4 H (23.9-30.70) Sec Sodium 133 L (137-145) mmol/L Potassium 2.9 L (3.4-5.0) mmol/L Chloride 100 (98-107) mmol/L Carbon Dioxide 23 (22-30) mmol/L Anion Gap 10 (4-12) mmol/L BUN 21 H (7-17) mg/dL Creatinine 1.88 H (0.7-1.0) mg/dL Estim Creat Clear Calc 29 ml/min Estimated GFR 27 L (59 - ) Glucose 148 H (65-110) mg/dL POC Capillary Glucose 177 H (65-105) mg/dl Calculated Osmolality 282 L (285-295) mOsm/kg Lactic Acid 1.7 (0.4-2.0) mmol/L Calcium 8.2 L (8.4-10.2) mg/dL Total Bilirubin 1.0 (0.2-1.3) mg/dL AST 36 (14-36) U/L ALT 24 (6-35) U/L Alkaline Phosphatase 70 (38-126) U/L Ammonia < 9 L (9-30) umol/L C-Reactive Protein > 9.0 H (<1.0) mg/dL Total Protein 6.8 (6.3-8.2) g/dL Albumin 3.7 (3.5-5.1) g/dL Urine Color (Yellow) Urine Appearance (Clear) Urine pH (5.0-8.0) Ur Specific [place] (1.010-1.020) Urine Protein (Negative) Urine Glucose (UA) (Negative) Urine Ketones (Negative) Ur Blood (Man) (Negative) Urine Nitrate (Negative) Urine Bilirubin (Negative) Urine Urobilinogen (0.2-1.0) mg/dL Leukocyte Esterase Rfl (Negative) HALEY/UL Urine RBC (0-2) /hpf Urine WBC (0-3) /hpf Ur Squamous Epith Cells (Few) /hpf Urine Bacteria (None) /hpf Urine Opiates Screen Urine Methadone Screen Ur Barbiturates Screen Ur Phencyclidine Scrn Ur Amphetamine Screen U Benzodiazepines Scrn Urine Cocaine Screen U Cannabinoids Screen Ethyl Alcohol < 10 (<10) mg/dL Influenza A (RT-PCR) Negative (Negative) Influenza B (RT-PCR) Negative (Negative) RSV (RT-PCR) Negative (Negative) SARS-CoV-2 RNA (RT-PCR) Negative (Negative) 06/20/24 Range/Units 19:05 WBC (4.8-10.8) K/mm3 RBC (4.20-5.40) M/mm3 Hgb (12.0-15.0) g/dL Hct (35.0-49.0) % MCV (78.0-102.0) fL MCH (27.0-31.0) pg MCHC (32-36) g/dL RDW (11.6-14.4) % Plt Count (150-420) K/mm3 MPV (9.2-11.8) fl Immature Gran % (Auto) (0.0-0.0) % Neut % (Auto) (50.0-70.0) % Lymph % (Auto) (18.0-42.0) % [place] % (Auto) (2.0-11.0) % Eos % (Auto) (1.0-6.0) % Baso % (Auto) (0.0-1.0) % Lymph # (Auto) (1.10-4.50) K/mm3 [place] # (Auto) (0.10-0.90) K/mm3 Eos # (Auto) (0.02-0.50) K/mm3 Baso # (Auto) (0.00-0.10) K/mm3 Abs Immat Gran (auto) (0.00-0.00) K/mm3 Absolute Neuts (auto) (1.70-7.20) K/mm3 Absolute Nucleated RBC (0.00-0.00) K/mm3 Nucleated RBC % (0-0.0) % PT (9.50-12.1) Seconds INR APTT (23.9-30.70) Sec Sodium (137-145) mmol/L Potassium (3.4-5.0) mmol/L Chloride (98-107) mmol/L Carbon Dioxide (22-30) mmol/L Anion Gap (4-12) mmol/L BUN (7-17) mg/dL Creatinine (0.7-1.0) mg/dL Estim Creat Clear Calc ml/min Estimated GFR (59 - ) Glucose (65-110) mg/dL POC Capillary Glucose (65-105) mg/dl Calculated Osmolality (285-295) mOsm/kg Lactic Acid (0.4-2.0) mmol/L Calcium (8.4-10.2) mg/dL Total Bilirubin (0.2-1.3) mg/dL AST (14-36) U/L ALT (6-35) U/L Alkaline Phosphatase (38-126) U/L Ammonia (9-30) umol/L C-Reactive Protein (<1.0) mg/dL Total Protein (6.3-8.2) g/dL Albumin (3.5-5.1) g/dL Urine Color Yellow (Yellow) Urine Appearance Clear (Clear) Urine pH 5.5 (5.0-8.0) Ur Specific [place] 1.025 H (1.010-1.020) Urine Protein 3+ H (Negative) Urine Glucose (UA) Negative (Negative) Urine Ketones 1+ H (Negative) Ur Blood (Man) 2+ H (Negative) Urine Nitrate Negative (Negative) Urine Bilirubin 1+ H (Negative) Urine Urobilinogen 1.0 (0.2-1.0) mg/dL Leukocyte Esterase Rfl 1+ H (Negative) HALEY/UL Urine RBC >75 H (0-2) /hpf Urine WBC >75 H (0-3) /hpf Ur Squamous Epith Cells None seen (Few) /hpf Urine Bacteria 3+ H (None) /hpf Urine Opiates Screen Pending Urine Methadone Screen Pending Ur Barbiturates Screen Pending Ur Phencyclidine Scrn Pending Ur Amphetamine Screen Pending U Benzodiazepines Scrn Pending Urine Cocaine Screen Pending U Cannabinoids Screen Pending Ethyl Alcohol (<10) mg/dL Influenza A (RT-PCR) (Negative) Influenza B (RT-PCR) (Negative) RSV (RT-PCR) (Negative) SARS-CoV-2 RNA (RT-PCR) (Negative) Discharge Plan Discharge Clinical Impression: Right ureteral calculus UTI (urinary tract infection) Qualifiers: Urinary tract infection type: site unspecified Hematuria presence: without hematuria Qualified Code(s): N39.0 - Urinary tract infection, site not specified Sepsis Qualifiers: Sepsis type: sepsis due to unspecified organism Sepsis acute organ dysfunction status: unspecified Qualified Code(s): A41.9 - Sepsis, unspecified organism Patient Disposition: Acute Care Hospital Condition: Stable Patient Language: Gibralt[place] Prescriptions: No Action citalopram [Celexa] 20 mg tablet 40 mg PO DAILY lorazepam [Ativan] 0.5 mg tablet 0.5 mg PO PRN PRN (Reason: Anxiety) losartan [Cozaar] 25 mg tablet 50 mg PO DAILY trazodone 100 mg tablet 100 mg PO HS atorvastatin 40 mg tablet 80 mg PO DAILY metoprolol succinate 25 mg tablet extended release 24 hr 75 mg PO DAILY potassium chloride 10 mEq capsule, extended release 10 meq PO DAILY amlodipine 5 mg tablet 5 mg PO DAILY Follow-up/Referrals: Yancy Guerrero MD [Primary Care Provider] - Time of Disposition: 20:34
[2024-06-20] MEDS: levoFLOXacin 500 MG/D5W 100 ML 500 MG/100 ML BAG 100 MG IVPB (20:06)
--- NOTE | 2024-06-20 20:30 | PC.NURSE ---
Pt given sips of water and assisted to BSC, she reports feeling a little more steady and VSS at this time. Pt has been accepteed at [facility] for nils.
--- NOTE | 2024-06-20 20:39 | PC.NURSE ---
Paperwork signed for transfer. Pt will go to [facility], pt and daughter updated on POC.
[2024-06-20 21:03] LABS: Magnesium 1.4 mg/dL (1.8-2.4)
--- NOTE | 2024-06-23 12:57 | PC.NURSE ---
Culture reprot faxed to [facility], patient is in room [id number]; Fax number [phone]
== END 2024-06-20 21:19 | disposition short-term general hospital (02) ==
PROVIDERS: Emergency Provider Emergency Medicine; PCP Internal Medicine
DX: N20.1 Calculus of ureter (principal); N39.0 Urinary tract infection, site not specified; A41.9 Sepsis, unspecified organism; I48.91 Unspecified atrial fibrillation; I10 Essential (primary) hypertension; F17.200 Nicotine dependence, unspecified, uncomplicated; Z20.822 Contact with and (suspected) exposure to COVID-19; Z79.899 Other long term (current) drug therapy
CPT/HCPCS: 36415; 70450; 71045; 74176; 80053; 80307; 81001; 82077; 82140; 82948; 83605; 83735; 85025; 85610; 85730; 86140; 87040; 87086; 87186; 87637; 93005; 96361; 96365; 96366; 96368; 99285; J1956; J3480; J7030

== ENCOUNTER 2024-06-27 10:21 | Outpatient (NON) | payer OTHER, SELFPAY ==
--- OUTSIDE RECORDS SUMMARY | 2024-06-27 10:28 | XMS_ITS | Clinical Summary ---
Author Organization [facility] Address [address] [place] [address] Care Team Providers Care Meat Pumper Name Role Phone Yancy Guerrero MD Primary Care Provider + [phone] Lupillo Reyes MD Unavailable [phone] Allergies No known active allergies Medications citalopram (CeleXA) 10 mg tabletIndication s:Anxiety with Depression Take 4 tablets (40 mg total) by mouth every morning Active LORazepam (ATIVAN) 0.5 mg tabletIndication s:anxiety Take 1 tablet (0.5 mg total) by mouth 2 (two) times a day 2 05/14/19 18 Active docusate sodium (COLACE) 100 mg capsuleIndicatio ns:constipation Take 1 capsule (100 mg total) by mouth 2 (two) times a day with a glass of water 30 capsule 07/27/19 23 Active traZODone (DESYREL) 100 mg tablet Take 1 tablet (100 mg total) by mouth nightly Active losartan (COZAAR) 25 mg tablet Take 4 tablets (100 mg total) by mouth nightly Active rivaroxaban (XARELTO) 20 mg tabletIndication s:atrial fibrillation Take 1 tablet (20 mg total) by mouth daily with dinner 30 tablet 06/02/19 24 Active atorvastatin (LIPITOR) 80 mg tabletIndication s:hyperlipidemia Take 1 tablet (80 mg total) by mouth nightly 30 tablet 1 06/03/19 24 Active amLODIPine (NORVASC) 5 mg tablet Take 1 tablet (5 mg total) by mouth daily 30 tablet 1 06/04/19 24 Active folic acid (FOLVITE) 1 mg tablet Take 1 tablet (1 mg total) by mouth daily 30 tablet 1 06/04/19 24 Active acetaminophen 500 mg capsule Take 2 capsules (1,000 mg total) by mouth every 6 (six) hours as needed for fever 30 tablet 06/27/19 25 Active oxyCODONE (ROXICODONE) 5 mg immediate release tabletIndication s:Pain Take 1 tablet (5 mg total) by mouth every 4 (four) hours as needed for pain 7 tablet 06/27/19 25 Active polyethylene glycol (MIRALAX) 17 gram/dose bulk powder Take 17 g by mouth daily 510 g 06/27/19 25 025 Active metoprolol XL (TOPROL-XL) 25 mg extended release tablet Take 0.5 tablets (12.5 mg total) by mouth daily 15 tablet 3 06/28/19 25 025 Active ertapenem (INVanz) 1 gram injection Infuse 10 mL (1,000 mg total) IV daily for 5 minutes for 4 days at 120 mL/hr 06/27/19 25 025 Active thiamine (VITAMIN B1) 100 mg tablet Take 1 tablet (100 mg total) by mouth daily 30 tablet 1 06/04/19 24 025 metoprolol tartrate (LOPRESSOR) 50 mg immediate release tablet Take 1 tablet (50 mg total) by mouth 2 (two) times a day 180 tablet 3 08/02/19 24 025 Discontinued(St op Taking at Discharge) ertapenem (INVanz) 1 gram injection Infuse 10 mL (1,000 mg total) IV daily for 5 minutes for 4 days at 120 mL/hr 40 mL 06/27/19 25 025 Discontinued Active Problems Problem Noted Date Diagnosed Date Pyelonephritis of right kidney 06/24/2024 Overview (06/24/2024): 64 y.o. female with pmh anxiety/depression, AF (Xarelto), HTN, HLD [place] [facility] [place]. Had Right ureterolithiasis with right sided pyelonephritis. ID being consulted for antibiotic recommendations. Assessment & Plan (06/24/2024 5:32 PM CDT): Images from the original note were not included. Bcx on 06/20 were positive for E coli in 1/2 sets with the following unusual susceptibility pattern: S/p Cystoscopy, with stone extraction and Right ureteral stent placement on 06/21 , patient is feeling better after that. As per op noted there was significant purulent debris noted coming out from the right ureteral orifice. Urine culture sent from bladder growing < 100, 000 organisms.Called the microlab if they can find the predominant bacteria on the culture. She is doing good despite receiving antibiotics the E coli was non susceptible do. Her blood cultures on 06/20/2024 were negative and source control has been addressed by the urological procedure. Today on Unasyn, which on the susc shows that its senstive but given the resistance pattern we strongly feel that she switched to Ertapenem 1g q24hrs days for a total course of 10 days from the procedure with EOT on 06/30/2024. ID will sign off , please call us for any questions Sepsis without acute organ d ysfunction, due to unspecified organism 2024 Kidney stone 06/20/2024 A-fib 05/31/2023 Nicotine abuse 05/31/2023 Hypomagnesemia 05/31/2023 Hypokalemia 05/31/2023 Thrombocytopenia 05/31/2023 Alcohol use 05/31/2023 Anxiety 05/31/2023 Chronic anemia 05/31/2023 HTN (hypertension) 03/21/2023 Assessment & Plan (03/23/2023 7:20 AM LAMINATING PRESS OPERATOR): Atenolol resumed with reasonable control Continue to hold Dyazide and losartan until outpatient follow-up HLD (hyperlipidemia) 03/21/2023 Assessment & Plan (03/22/2023 2:05 PM LAMINATING PRESS OPERATOR): Continue atorvastatin Transaminases have normalized. Depression with anxiety 03/21/2023 Assessment & Plan (03/23/2023 7:20 AM LAMINATING PRESS OPERATOR): Cont citalopram 40mg daily and lorazepam 0.5mg BID Resolved Problems Problem Noted Date Diagnosed Date Resolved Date Hypotension 03/21/2023 03/22/2023 Assessment & Plan (03/21/2023 8:09 PM LAMINATING PRESS OPERATOR): - Presenting with BP 80/50s in setting of reduced PO intake and ongoing BP meds - (+)orthostatics on presentation - Hold BP meds, check orthostatics in AM - Restart meds as needed Headache 03/21/2023 03/22/2023 Assessment & Plan (03/21/2023 8:10 PM LAMINATING PRESS OPERATOR): - Tylenol ordered; avoid NSAIDs Weakness 03/21/2023 03/23/2023 Assessment & Plan (03/22/2023 2:06 PM LAMINATING PRESS OPERATOR): TSH and B12 within acceptable limits. Monitor symptoms as blood pressure and renal function recover Nausea 03/21/2023 03/22/2023 Assessment & Plan (03/21/2023 8:10 PM LAMINATING PRESS OPERATOR): - Zofran ordered SUN (acute kidney injury) 03/21/2023 Assessment & Plan (03/23/2023 7:19 AM LAMINATING PRESS OPERATOR): Creatinine improved today Check renal function and electrolytes in outpatient follow-up Continue to hold Dyazide and losartan until outpatient follow-up. Abnormal transaminases 03/21/202303/22 Assessment & Plan (03/21/2023 8:11 PM LAMINATING PRESS OPERATOR): - Elevated in setting of recent viral infection and presumed hypovolemia - Trend in AM - if continues to be elevated consider hepatitis panel/HIV given occupation history Complete rupture of rotator cuff 07/13/2022 03/21/2023 Acute medial meniscus tear of left knee 06/25/2020 03/21/2023 Overview (06/25/2020): Added automatically from request for surgery [id number] Axillary mass, left 12/30/2016 03/21/19 24 Lipoma of forehead 11/23/2015 Pain in shoulder 11/12/2014 03/21/2023 Syncope 03/06/2013 03/21/2023 Encounters Date Type Department Care Team Description 06/27/2024 Telephone [facility] Case Management [address] [place] [address] Dulce Maria Benites RN 06/26/[address] [facility] Home Care Services [address] [place] [address] Laurie Tierney, [facility] 06/24/2024 Telephone [facility] Cardiology [address] 8th [place] [address] [place] [address] Pat Calvo 06/24/2024 Documentation [facility] Urology [address] [place] [address] Chelsea Haywood MD 2024 2:38 PM CDT Anesthesia Event [facility] Operating Room [address] [place] [address] Jyothi Roque MD Jablonski, Melody A., NP 2024 2:02 PM CDT - 2024 3:07 PM CDT Surgery [facility] Operating Room [address] [place] [address] Chelsea Haywood MD CYSTOSCOPY PLACEMENT URETERAL STENT 06/20/2024 10:10 PM CDT - 06/26/2024 6:14 PM CDT Hospital Encounter [facility] 1 [place] [address] Carlos Palomares MD Baiocco, Joseph, MD Mendelsohn, Marc, MD Sepsis without acute organ dysfunction, due to unspecified organism (HCC) (Primary Dx); Kidney stone; Bradycardia; Pyelonephritis of right kidney Discharge Disposition: Discharge to home, home health skilled care 06/20/2024 Hospital Encounter [facility] ADMIT [address] [place] [address] 06/17/2024 Telephone [facility] Orthopaedic Surgery [address] 2[address] [place] [address] Cheryl Trujillo RN WC Intake Form 06/04/2024 Telephone [facility] Orthopaedic Surgery [address] [place] [address] 2nd [address] [place] [address] Cheryl Trujillo RN 04/08/2024 10:20 AM LAMINATING PRESS OPERATOR Office Visit [facility] Orthopaedic Surgery [address] [place] [address] Floor [address] [place] [address] Carlos Alberto Ayoub MD Impingement of right [...] = 0.6 oz pur e alcohol) socially [email or web address] Utilities Answer Date Recorded In the past 12 months has [employer], gas, oil, or water [employer] threatened to shut off services in your [...] often do you attend chur ch or sikhism services? More than 4 times per year 06/02/2023 Do you belong to any clubs o r organizations such as mormon groups, unions, fraternal or athletic groups, or [...] place to sleep or slept in a longterm (including now)? No 06/02/2023 Personal Safety Answer Date Recorded Have you ever been in or are you currently in a harmful physical or emotional relationship or is someone making you feel afraid or unsafe? 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 LAMINATING PRESS OPERATOR Gender Identity Not on file Sexual Orientation Not on file Obstetrics History Last Filed Vital Signs Vital Sign Reading Time Taken Comments Blood Pressure 152/78 06/26/2024 4:15 PM CDT Pulse 61 06/26/2024 4:15 PM CDT Temperature 36.6 C (97.9 F) 06/26/2024 4:15 PM CDT Respiratory Rate 16 06/26/2024 4:15 PM CDT Oxygen Saturation 90% 06/26/2024 4:15 PM CDT Inhaled Oxygen Concentration - - Weight 91.4 kg (201 lb 8 oz) 2024 4:30 PM CDT Height 165.1 cm (5' 5 ) 2024 6:00 AM CDT Body Mass Index 33.53 2024 6:00 AM CDT Plan of Treatment Health Maintenance Due Date Last Done Comments Depression Screening 1960 Hepatitis B Screening 06/22/1979 Regular [...] 07/18/2017, 03/09/2012 Zoster Vaccine Completed 07/15/2020, 05/04/2020 Hepatitis C Screening Completed 2024 Medical Devices Implanted Type Area Calender Worker Helper Device Identifier Shelf Expiration Date Model / Serial / Lot [employer] Universa 6fr 24cm Radiopaque Graduate Firm Monofilament Tether [id number] - [id number] Implanted:Qty: 1 on 2024 by Chelsea Haywood MD at [facility] Stent Right: Ureter [employer] [id number] 12/28/2026 [id number] / / [id number] [employer] Corkscrew Tigertail 5.5mm 14.7mm Drive Mechanism Vent 2 Square [id number] - [id number] Implanted:Qty: 1 on 07/26/2022 by Lupillo Reyes MD at [facility] Right: Shoulder [employer] 02/13/2024 AR-1927B CFT / / [id number] [employer] Corkscrew Tigertail 5.5mm 14.7mm Drive Mechanism Vent 2 Square [id number] - [id number] Implanted:Qty: 1 on 07/26/2022 by Lupillo Reyes MD at [facility] Right: Shoulder [employer] 11/12/2024 AR-1927B CFT / / [id number] [employer] Swivelock C 4.75mm 19.1mm Closed Eyelet Vent Abbott Suture Ar-[id number] - [id number] Implanted:Qty: 1 on 07/26/2022 by Lupillo Reyes MD at [facility] Right: Shoulder [employer] 02/12/2026 AR-2324B CC / / [id number] Procedures Procedure Name Priority Date/Time Associated Diagnosis Comments EGFR Timed 06/25/2024 8:45 PM CDT CBC WITHOUT DIFFERENTIAL Timed 06/25/2024 8:45 PM CDT BASIC METABOLIC PANEL Timed 06/25/2024 8:45 PM CDT MAGNESIUM Timed 06/25/2024 8:45 PM CDT PHOSPHORUS Timed 06/25/2024 8:45 PM CDT EGFR Timed 06/24/2024 9:08 PM CDT CBC WITHOUT DIFFERENTIAL Timed 06/24/2024 9:08 PM CDT BASIC METABOLIC PANEL Timed 06/24/2024 9:08 PM CDT MAGNESIUM Timed 06/24/2024 9:08 PM CDT PHOSPHORUS Timed 06/24/2024 9:08 PM CDT TRANSTHORACIC ECHO (TTE) COMPLETE W DOPPLER/CF W CONTRAST Routine 06/24/2024 2:47 PM CDT EGFR Timed 06/23/2024 9:45 PM CDT CBC WITHOUT DIFFERENTIAL Timed 06/23/2024 9:45 PM CDT BASIC METABOLIC PANEL Timed 06/23/2024 9:45 PM CDT MAGNESIUM Timed 06/23/2024 9:45 PM CDT PHOSPHORUS Timed 06/23/2024 9:45 PM CDT CRITICAL CARE Routine 06/23/2024 9:12 AM CDT Kidney stone Bradycardia EGFR Routine 06/22/2024 7:55 PM CDT PHOSPHORUS Routine 06/22/2024 7:55 PM CDT MAGNESIUM Routine 06/22/2024 7:55 PM CDT BASIC METABOLIC PANEL Routine 06/22/2024 7:55 PM CDT CBC WITHOUT DIFFERENTIAL Routine 06/22/2024 7:55 PM CDT CRITICAL CARE Routine 06/22/2024 6:39 PM CDT Sepsis without acute organ dysfunction, due to unspecified organism (HCC) CRITICAL CARE Routine 06/22/2024 9:48 AM CDT Sepsis without acute organ dysfunction, due to unspecified organism (HCC) Kidney stone Bradycardia VANCOMYCIN LEVEL TROUGH Timed 06/22/2024 5:01 AM CDT ECG 12-LEAD STAT 2024 10:48 PM CDT POC BLOOD GAS AND CHEMISTRIES, ARTERIAL Routine 2024 9:59 PM CDT XR ABDOMEN AP 1 VIEW ED Urgent/IP Urgent 2024 6:40 PM CDT XR CHEST 1 VIEW ED Urgent/IP Urgent 2024 5:08 PM CDT RPR Routine 2024 5:02 PM CDT HEPATITIS C ANTIBODY Routine 2024 5:02 PM CDT HEPATITIS B SURFACE ANTIGEN Routine 2024 5:02 PM CDT HIV 1/2 ANTIBODY PLUS P24 ANTIGEN Routine 2024 5:02 PM CDT EGFR STAT 2024 5:00 PM CDT CBC WITHOUT DIFFERENTIAL STAT 2024 5:00 PM CDT BLOOD GAS, ARTERIAL STAT 2024 5 :00 PM CDT LACTATE STAT 2024 5:00 PM CDT CALCIUM, IONIZED STAT 2024 5:00 PM CDT PHOSPHORUS STAT 2024 5:00 PM CDT MAGNESIUM STAT 2024 5:00 PM CDT BASIC METABOLIC PANEL STAT 2024 5:00 PM CDT ECG 12-LEAD STAT 2024 4:29 PM CDT POC BLOOD GAS AND CHEMISTRIES, ARTERIAL Routine 2024 3:47 PM CDT FL FLUOROSCOPY < 1 HOUR IP Routine 2024 3:20 PM CDT URINE CULTURE Routine 2024 3:20 PM CDT PYELOGRAM - RETROGRADE 2024 2:43 PM CDT Kidney stone Case Notes Poc; Elian [phone] CYSTOSCOPY PLACEMENT URETERAL STENT 2024 2:43 PM CDT Kidney stone Case Notes Poc; Elian [phone] EGFR STAT 2024 1:07 PM CDT LACTATE STAT 2024 1:07 PM CDT BASIC METABOLIC PANEL STAT 2024 1:07 PM CDT CBC WITHOUT DIFFERENTIAL STAT 2024 1:07 PM CDT URINE CULTURE STAT 2024 8:45 AM CDT URINALYSIS, MICROSCOPIC ONLY STAT 2024 8:32 AM CDT URINALYSIS AND REFLEX TO MICROSCOPIC STAT 2024 8:32 AM CDT US KIDNEY COMPLETE ED 2024 12 :33 AM CDT B CHECK SAMPLE STAT 06/20/2024 11:13 PM CDT XR CHEST 1 VIEW ED 06/20/2024 11:[address] BODY OUTSIDE CONSULT Routine 06/20/2024 10:[address] OUTSIDE REFERENCE Routine 06/20/2024 10:49 PM CDT ECG 12-LEAD STAT 06/20/2024 10:46 PM CDT SEPSIS LACTATE WITH REFLEX STAT 06/20/2024 10:38 PM CDT POCT GLUCOSE DEVICE Routine 06/20/2024 1 0:27 PM CDT EGFR STAT 06/20/2024 10:24 PM CDT DIFFERENTIAL AUTO STAT 06/20/2024 10: 24 PM CDT TYPE AND SCREEN STAT 06/20/2024 10:24 PM CDT APTT STAT 06/20/2024 10:24 PM CDT PROTIME-INR STAT 06/20/2024 10:24 PM CDT CBC WITH AUTO DIFFERENTIAL STAT 06/20/2024 10:24 PM CDT BASIC METABOLIC PANEL STAT 06/20/2024 10:24 PM CDT RESPIRATORY PATHOGEN PANEL STAT 06/20/2024 10:24 PM CDT BLOOD CULTURE STAT 06/20/2024 10:24 PM CDT BLOOD CULTURE STAT 06/20/2024 10:24 PM CDT COLONOSCOPY 07/18/2017 9:10 AM CDT from Last 3 Months or Most Recently Relevant to Health Maintenance Results * eGFR (06/25/2024 8:45 PM CDT) eGFR >90 >=60 mL/min/1. 73 m2 Comment: Interpretive Data Reference Interval Normal >/= 90 mL/min/1.73m2 Mildly decreased* 60 - 89 mL/min/1.73m2 Mildly to moderately decreased 45 - 59 mL/min/1.73m2 Moderately to severely decreased 30 - 44 mL/min/1.73m2 Severely decreased 15 - 29 mL/min/1.73m2 Kidney Failure < 15 mL/min/1.73m2 *Relative to young adult level Estimated glomerular filtration rate is determined by the 2020 CKD-EPI equation recommended by the National Kidney Foundation (A Unifying Approach to GFR Estimation: Recommendations of the NKF-ASK Task Force on Reassessing the Inclusion of Race in Diagnosing Kidney Disease, JASN 2020). The CKD-EPI equation should not be used for patients with unstable renal function and has not been validated in children and those over 70. Current interpretive data was last reviewed 2020. Blood 06/25/2024 8:45 PM CDT 06/25/2024 9:43 PM CDT us Braeden Alcantar MD LAB BLOOD ORDERABLES Final Res ult [facility] Department of Laboratories [place], [place] [id number] * (ABNORMAL) CBC without differential (06/25/2024 8:45 PM CDT) WBC 7.87 3.80 - 9.90 K/cumm Hgb 11.0(L) 11.9 - 15.5 g/dL [facility] Hct 32.9(L) 35.6 - 45.5 % [facility] Plt 385 150 - 400 K/cumm [facility] MPV 10.6 9.1 - 12.3 fL [facility] RBC 3.50(L) 3.90 - 5.20 M/cumm [facility] MCV 94.0 81.3 - 96.4 fL [facility] MCH 31.4 27.1 - 33.3 pg [facility] MCHC 33.4 32.3 - 35.7 g/dL [facility] RDW CV 14.4 11.1 - 14.9 % [facility] RDW SD 49.4(H) 35.7 - 48.1 fL [facility] NRBC abs 0.00 0.00 - 0.01 K/cumm [facility] Blood 06/25/2024 8:45 PM CDT 06/25/2024 9:59 PM CDT Braeden Alcantar MD LAB BLOOD ORDERABLES Final Res ult [facility] Department [place] [address] * Phosphorus (06/25/2024 8:45 PM CDT) Pathologist [facility] Phosphorus, pl 2.8 2.3 - 4.5 mg/dL Blood 06/25/2024 8:45 PM CDT 06/25/2024 9:43 PM CDT Braeden Alcantar MD LAB BLOOD ORDERABLES Final Res ult [facility] [place] [address] * Magnesium (06/25/2024 8:45 PM CDT) Pathologist [facility] Magnesium 2.0 1.4 - 2.5 mg/dL Blood 06/25/2024 8:45 PM CDT 06/25/2024 9:43 PM CDT Braeden Alcantar MD LAB BLOOD ORDERABLES Final Res ult [facility] Department [place] [address] * Basic metabolic panel (06/25/2024 8:45 PM CDT) Sodium 139 135 - 145 mmol/L Potassium, pl 3.7 3.3 - 4.9 mmol/L [facility] Chloride 101 97 - 110 mmol/L [facility] CO2 30 22 - 32 mmol/L [facility] Anion gap 8 2 - 15 mmol/L [facility] BUN 11 6 - 25 mg/dL [facility] Creatinine 0.73 0.60 - 1.10 mg/dL [facility] Glucose 137 70 - 199 mg/dL [facility] Comment: Interpretive Data Fasting glucose >/= 126 mg/dl is diagnostic for diabetes. Fasting is defined as no caloric intake for at least 8 hours. Fasting glucose between 100 mg/dl to 125 mg/dl is diagnostic of prediabetes. In a lisa [id number]|2024-06-27 10:29:00|2024-06-27 10:28:00|XMS_ITS|GISELLE SCOTT|External Medical Summaries|[id number]|" Referral Summary Created on: June 27, 2024 Camille Shultz : 1960 Sex: Female Author Organization [facility] Address [address] [place] [address] Care Team Providers Care Meat Pumper Name Role Phone Yancy Guerrero MD Primary Care Provider + [phone] Lupillo Reyes MD Unavailable Encounters Date Type Department Care Team Description 06/27/2024 Telephone [facility] Case Management [address] [place] [address] Dulce Maria Benites RN 06/26/[address] [facility] Home Care Services [address] [place] [address] Laurie Tierney, [facility] 06/20/2024 10:10 PM CDT - 06/26/2024 6:14 PM CDT Hospital Encounter [facility] 1 [place] [address] Carlos Palomares MD Baiocco, Joseph, MD Mendelsohn, Marc, MD Sepsis without acute organ dysfunction, due to unspecified organism (HCC) (Primary Dx); Kidney stone; Bradycardia; Pyelonephritis of right kidney Discharge Disposition: Discharge to home, home health skilled care 06/24/2024 Telephone [facility] Cardiology [address] 8th [place] [address] [place] [address] Pat Calvo 06/24/2024 Documentation [facility] Urology [address] [place] [address] Chelsea Haywood MD 2024 2:38 PM CDT Anesthesia Event [facility] Operating Room 1 [place] [phone] Jyothi Roque MD Jablonski, Melody A., NP 2024 2:02 PM CDT - 2024 3:07 PM CDT Surgery [facility] Operating Room 1 [place] [address] Chelsea Haywood MD CYSTOSCOPY PLACEMENT URETERAL STENT 06/20/2024 Hospital Encounter [facility] ADMIT 1 [place] [address] 06/17/2024 Telephone [facility] Orthopaedic Surgery [address] 2nd Floor [address] [place] [address] Cheryl Trujillo RN Intake Form 06/04/2024 Telephone [facility] Orthopaedic Surgery [address] [place] [address] 2nd Floor [address] [place] [address] Cheryl Trujillo RN 04/08/2024 10:20 AM LAMINATING PRESS OPERATOR Office Visit [facility] Orthopaedic Surgery [address] [place] [address] Floor [address] [place] [address] Carlos Alberto Ayoub MD Impingement of right shoulder (Primary Dx) from Last 3 Months Allergies No known active allergies Medications citalopram (CeleXA) 10 mg tabletIndication s:Anxiety with Depression Take 4 tablets (40 mg total) by mouth every morning Active LORazepam (ATIVAN) 0.5 mg tabletIndication s:anxiety Take 1 tablet (0.5 mg total) by mouth 2 (two) times a day 2 05/14/19 18 Active docusate sodium (COLACE) 100 mg capsuleIndicatio ns:constipation Take 1 capsule (100 mg total) by mouth 2 (two) times a day with a glass of water 30 capsule 07/27/19 23 Active traZODone (DESYREL) 100 mg tablet Take 1 tablet (100 mg total) by mouth nightly Active losartan (COZAAR) 25 mg tablet Take 4 tablets (100 mg total) by mouth nightly Active rivaroxaban (XARELTO) 20 mg tabletIndication s:atrial fibrillation Take 1 tablet (20 mg total) by mouth daily with dinner 30 tablet 06/02/19 24 Active atorvastatin (LIPITOR) 80 mg tabletIndication s:hyperlipidemia Take 1 tablet (80 mg total) by mouth nightly 30 tablet 1 06/03/19 24 Active amLODIPine (NORVASC) 5 mg tablet Take 1 tablet (5 mg total) by mouth daily 30 tablet 1 06/04/19 24 Active folic acid (FOLVITE) 1 mg tablet Take 1 tablet (1 mg total) by mouth daily 30 tablet 1 06/04/19 24 Active acetaminophen 500 mg capsule Take 2 capsules (1,000 mg total) by mouth every 6 (six) hours as needed for fever 30 tablet 06/27/19 25 Active oxyCODONE (ROXICODONE) 5 mg immediate release tabletIndication s:Pain Take 1 tablet (5 mg total) by mouth every 4 (four) hours as needed for pain 7 tablet 06/27/19 25 Active polyethylene glycol (MIRALAX) 17 gram/dose bulk powder Take 17 g by mouth daily 510 g 06/27/19 25 025 Active metoprolol XL (TOPROL-XL) 25 mg extended release tablet Take 0.5 tablets (12.5 mg total) by mouth daily 15 tablet 3 06/28/19 25 025 Active ertapenem (INVanz) 1 gram injection Infuse 10 mL (1,000 mg total) IV daily for 5 minutes for 4 days at 120 mL/hr 06/27/19 25 025 Active thiamine (VITAMIN B1) 100 mg tablet Take 1 tablet (100 mg total) by mouth daily 30 tablet 1 06/04/19 24 025 metoprolol tartrate (LOPRESSOR) 50 mg immediate release tablet Take 1 tablet (50 mg total) by mouth 2 (two) times a day 180 tablet 3 08/02/19 24 025 Discontinued(St op Taking at Discharge) ertapenem (INVanz) 1 gram injection Infuse 10 mL (1,000 mg total) IV daily for 5 minutes for 4 days at 120 mL/hr 40 mL 06/27/19 25 025 Discontinued Active Problems Problem Noted Date Diagnosed Date Pyelonephritis of right kidney 06/24/2024 Overview (06/24/2024): 64 y.o. female with pmh anxiety/depression, AF (Xarelto), HTN, HLD [place] [facility] [place]. Had Right ureterolithiasis with right sided pyelonephritis. ID being consulted for antibiotic recommendations. Assessment & Plan (06/24/2024 5:32 PM CDT): Images from the original note were not included. Bcx on 06/20 were positive for E coli in 1/2 sets with the following unusual susceptibility pattern: S/p Cystoscopy, with stone extraction and Right ureteral stent placement on 06/21 , patient is feeling better after that. As per op noted there was significant purulent debris noted coming out from the right ureteral orifice. Urine culture sent from bladder growing < 100, 000 organisms.Called the microlab if they can find the predominant bacteria on the culture. She is doing good despite receiving antibiotics the E coli was non susceptible do. Her blood cultures on 06/20/2024 were negative and source control has been addressed by the urological procedure. Today on Unasyn, which on the susc shows that its senstive but given the resistance pattern we strongly feel that she switched to Ertapenem 1g q24hrs days for a total course of 10 days from the procedure with EOT on 06/30/2024. ID will sign off , please call us for any questions Sepsis without acute organ d ysfunction, due to unspecified organism 2024 Kidney stone 06/20/2024 A-fib 05/31/2023 Nicotine abuse 05/31/2023 Hypomagnesemia 05/31/2023 Hypokalemia 05/31/2023 Thrombocytopenia 05/31/2023 Alcohol use 05/31/2023 Anxiety 05/31/2023 Chronic anemia 05/31/2023 HTN (hypertension) 03/21/2023 Assessment & Plan (03/23/2023 7:20 AM LAMINATING PRESS OPERATOR): Atenolol resumed with reasonable control Continue to hold Dyazide and losartan until outpatient follow-up HLD (hyperlipidemia) 03/21/2023 Assessment & Plan (03/22/2023 2:05 PM LAMINATING PRESS OPERATOR): Continue atorvastatin Transaminases have normalized. Depression with anxiety 03/21/2023 Assessment & Plan (03/23/2023 7:20 AM LAMINATING PRESS OPERATOR): Cont citalopram 40mg daily and lorazepam 0.5mg BID Resolved Problems Problem Noted Date Diagnosed Date Resolved Date Hypotension 03/21/2023 03/22/2023 Assessment & Plan (03/21/2023 8:09 PM LAMINATING PRESS OPERATOR): - Presenting with BP 80/50s in setting of reduced PO intake and ongoing BP meds - (+)orthostatics on presentation - Hold BP meds, check orthostatics in AM - Restart meds as needed Headache 03/21/2023 03/22/2023 Assessment & Plan (03/21/2023 8:10 PM LAMINATING PRESS OPERATOR): - Tylenol ordered; avoid NSAIDs Weakness 03/21/2023 03/23/2023 Assessment & Plan (03/22/2023 2:06 PM LAMINATING PRESS OPERATOR): TSH and B12 within acceptable limits. Monitor symptoms as blood pressure and renal function recover Nausea 03/21/2023 03/22/2023 Assessment & Plan (03/21/2023 8:10 PM LAMINATING PRESS OPERATOR): - Zofran ordered SUN (acute kidney injury) 03/21/2023 Assessment & Plan (03/23/2023 7:19 AM LAMINATING PRESS OPERATOR): Creatinine improved today Check renal function and electrolytes in outpatient follow-up Continue to hold Dyazide and losartan until outpatient follow-up. Abnormal transaminases 03/21/202303/22 Assessment & Plan (03/21/2023 8:11 PM LAMINATING PRESS OPERATOR): - Elevated in setting of recent viral infection and presumed hypovolemia - Trend in AM - if continues to be elevated consider hepatitis panel/HIV given occupation history Complete rupture of rotator cuff 07/13/2022 03/21/2023 Acute medial meniscus tear of left knee 06/25/2020 03/21/2023 Overview (06/25/2020): Added automatically from request for surgery [id number] Axillary mass, left 12/30/2016 03/21/19 24 Lipoma [...] = 0.6 oz pur e alcohol) socially [facility] Utilities Answer Date Recorded In the past 12 months has e electric, gas, oil, or water company threatened to shut off services in your [...] often do you attend chur ch or sikhism services? More than 4 times per year 06/02/2023 Do you belong to any clubs o r organizations such as mormon groups, unions, fraternal or athletic groups, or [...] place to sleep or slept in a longterm (including now)? No 06/02/2023 Personal Safety Answer Date Recorded Have you ever been in or are you currently in a harmful physical or emotional relationship or is someone making you feel afraid or unsafe? 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 LAMINATING PRESS OPERATOR Gender Identity Not on file Sexual Orientation Not on file Last Filed Vital Signs Vital Sign Reading Time Taken Comments Blood Pressure 152/78 06/26/2024 4:15 PM CDT Pulse 61 06/26/2024 4:15 PM CDT Temperature 36.6 C (97.9 F) 06/26/2024 4:15 PM CDT Respiratory Rate 16 06/26/2024 4:15 PM CDT Oxygen Saturation 90% 06/26/2024 4:15 PM CDT Inhaled Oxygen Concentration - - Weight 91.4 kg (201 lb 8 oz) 2024 4:30 PM CDT Height 165.1 cm (5' 5 ) 2024 6:00 AM CDT Body Mass Index 33.53 2024 6:00 AM CDT Plan of Treatment Not on file Medical Devices Implanted Type Area Calender Worker Helper Device Identifier Shelf Expiration Date Model / Serial / Lot [employer] Universa 6fr 24cm Radiopaque Graduate Firm Monofilament Tether [id number] - [id number] Implanted:Qty: 1 on 2024 by Chelsea Haywood MD at [facility] Stent Right: Ureter [employer] [id number] 12/28/2026 [id number] / / [id number] [employer] Corkscrew Tigertail 5.5mm 14.7[address] Drive Mechanism Vent 2 Square [id number] - [id number] Implanted:Qty: 1 on 07/26/2022 by Lupillo Reyes MD at [facility] Right: Shoulder [employer] 02/13/2024 AR-[id number] CFT / / [id number] [employer] Corkscrew Tigertail 5.5mm 14.[address] Mechanism Vent 2 Square [id number] - [id number] Implanted:Qty: 1 on 07/26/2022 by Lupillo Reyes MD at [facility] Right: Shoulder [employer] 11/12/2024 AR-1927B CFT / / [id number] [employer] Swivelock C 4.75mm 19.1mm Closed Eyelet Vent Abbott Suture Ar-[id number] - [id number] Implanted:Qty: 1 on 07/26/2022 by Lupillo Reyes MD at [facility] Right: Shoulder [employer] 02/12/2026 AR-[id number] CC / / [id number] Procedures Procedure Name Priority Date/Time Associated Diagnosis Comments EGFR Timed 06/25/2024 8:45 PM CDT CBC WITHOUT DIFFERENTIAL Timed 06/25/2024 8:45 PM CDT BASIC METABOLIC PANEL Timed 06/25/2024 8:45 PM CDT MAGNESIUM Timed 06/25/2024 8:45 PM CDT PHOSPHORUS Timed 06/25/2024 8:45 PM CDT EGFR Timed 06/24/2024 9:08 PM CDT CBC WITHOUT DIFFERENTIAL Timed 06/24/2024 9:08 PM CDT BASIC METABOLIC PANEL Timed 06/24/2024 9:08 PM CDT MAGNESIUM Timed 06/24/2024 9:08 PM CDT PHOSPHORUS Timed 06/24/2024 9:08 PM CDT TRANSTHORACIC ECHO (TTE) COMPLETE W DOPPLER/CF W CONTRAST Routine 06/24/2024 2:47 PM CDT EGFR Timed 06/23/2024 9:45 PM CDT CBC WITHOUT DIFFERENTIAL Timed 06/23/2024 9:45 PM CDT BASIC METABOLIC PANEL Timed 06/23/2024 9:45 PM CDT MAGNESIUM Timed 06/23/2024 9:45 PM CDT PHOSPHORUS Timed 06/23/2024 9:45 PM CDT CRITICAL CARE Routine 06/23/2024 9:12 AM CDT Kidney stone Bradycardia EGFR Routine 06/22/2024 7:55 PM CDT PHOSPHORUS Routine 06/22/2024 7:55 PM CDT MAGNESIUM Routine 06/22/2024 7:55 PM CDT BASIC METABOLIC PANEL Routine 06/22/2024 7:55 PM CDT CBC WITHOUT DIFFERENTIAL Routine 06/22/2024 7:55 PM CDT CRITICAL CARE Routine 06/22/2024 6:39 PM CDT Sepsis without acute organ dysfunction, due to unspecified organism (HCC) CRITICAL CARE Routine 06/22/2024 9:48 AM CDT Sepsis without acute organ dysfunction, due to unspecified organism (HCC) Kidney stone Bradycardia VANCOMYCIN LEVEL TROUGH Timed 06/22/2024 5:01 AM CDT ECG 12-LEAD STAT 2024 10:48 PM CDT POC BLOOD GAS AND CHEMISTRIES, ARTERIAL Routine 2024 9:59 PM CDT XR ABDOMEN AP 1 VIEW ED Urgent/IP Urgent 2024 6:40 PM CDT XR CHEST 1 VIEW ED Urgent/IP Urgent 2024 5:08 PM CDT RPR Routine 2024 5:02 PM CDT HEPATITIS C ANTIBODY Routine 2024 5:02 PM CDT HEPATITIS B SURFACE ANTIGEN Routine 2024 5:02 PM CDT HIV 1/2 ANTIBODY PLUS P24 ANTIGEN Routine 2024 5:02 PM CDT EGFR STAT 2024 5:00 PM CDT CBC WITHOUT DIFFERENTIAL STAT 2024 5:00 PM CDT BLOOD GAS, ARTERIAL STAT 2024 5 :00 PM CDT LACTATE STAT 2024 5:00 PM CDT CALCIUM, IONIZED STAT 2024 5:00 PM CDT PHOSPHORUS STAT 2024 5:00 PM CDT MAGNESIUM STAT 2024 5:00 PM CDT BASIC METABOLIC PANEL STAT 2024 5:00 PM CDT ECG 12-LEAD STAT 2024 4:29 PM CDT POC BLOOD GAS AND CHEMISTRIES, ARTERIAL Routine 2024 3:47 PM CDT FL FLUOROSCOPY < 1 HOUR IP Routine 2024 3:20 PM CDT URINE CULTURE Routine 2024 3:20 PM CDT PYELOGRAM - RETROGRADE 2024 2:43 PM CDT Kidney stone Case Notes Poc; Elian [phone] CYSTOSCOPY PLACEMENT URETERAL STENT 2024 2:43 PM CDT Kidney stone Case Notes Poc; Elian [phone] EGFR STAT 2024 1:07 PM CDT LACTATE STAT 2024 1:07 PM CDT BASIC METABOLIC PANEL STAT 2024 1:07 PM CDT CBC WITHOUT DIFFERENTIAL STAT 2024 1:07 PM CDT URINE CULTURE STAT 2024 8:45 AM CDT URINALYSIS, MICROSCOPIC ONLY STAT 2024 8:32 AM CDT URINALYSIS AND REFLEX TO MICROSCOPIC STAT 2024 8:32 AM CDT US KIDNEY COMPLETE ED 2024 12 :33 AM CDT B CHECK SAMPLE STAT 06/20/2024 11:13 PM CDT XR CHEST 1 VIEW ED 06/20/2024 11:[address] BODY OUTSIDE CONSULT Routine 06/20/2024 10:[address] OUTSIDE REFERENCE Routine 06/20/2024 10:49 PM CDT ECG 12-LEAD STAT 06/20/2024 10:46 PM CDT SEPSIS LACTATE WITH REFLEX STAT 06/20/2024 10:38 PM CDT POCT GLUCOSE DEVICE Routine 06/20/2024 1 0:27 PM CDT EGFR STAT 06/20/2024 10:24 PM CDT DIFFERENTIAL AUTO STAT 06/20/2024 10: 24 PM CDT TYPE AND SCREEN STAT 06/20/2024 10:24 PM CDT APTT STAT 06/20/2024 10:24 PM CDT PROTIME-INR STAT 06/20/2024 10:24 PM CDT CBC WITH AUTO DIFFERENTIAL STAT 06/20/2024 10:24 PM CDT BASIC METABOLIC PANEL STAT 06/20/2024 10:24 PM CDT RESPIRATORY PATHOGEN PANEL STAT 06/20/2024 10:24 PM CDT BLOOD CULTURE STAT 06/20/2024 10:24 PM CDT BLOOD CULTURE STAT 06/20/2024 10:24 PM CDT COLONOSCOPY 07/18/2017 9:10 AM CDT from Last 3 Months or Most Recently Relevant to Health Maintenance Results * eGFR (06/25/2024 8:45 PM CDT) [facility] eGFR >90 >=60 mL/min/1. 73 m2 Comment: Interpretive Data Reference Interval Normal >/= 90 mL/min/1.73m2 Mildly decreased* 60 - 89 mL/min/1.73m2 Mildly to moderately decreased 45 - 59 mL/min/1.73m2 Moderately to severely decreased 30 - 44 mL/min/1.73m2 Severely decreased 15 - 29 mL/min/1.73m2 Kidney Failure < 15 mL/min/1.73m2 *Relative to young adult level Estimated glomerular filtration rate is determined by the 2020 CKD-EPI equation recommended by the National Kidney Foundation (A Unifying Approach to GFR Estimation: Recommendations of the NKF-ASK Task Force on Reassessing the Inclusion of Race in Diagnosing Kidney Disease, JASN 202). The CKD-EPI equation should not be used for patients with unstable renal function and has not been validated in children and those over 70. Current interpretive data was last reviewed 2020. Blood 06/25/2024 8:45 PM CDT 06/25/2024 9:43 PM CDT us Braeden Alcantar MD LAB BLOOD ORDERABLES Final Res ult [facility] Department [place] [address] * (ABNORMAL) CBC without differential (06/25/2024 8:45 PM CDT) WBC 7.87 3.80 - 9.90 K/cumm Hgb 11.0(L) 11.9 - 15.5 g/dL [facility] Hct 32.9(L) 35.6 - 45.5 % [facility] Plt 385 150 - 400 K/cumm [facility] MPV 10.6 9.1 - 12.3 fL [facility] RBC 3.50(L) 3.90 - 5.20 M/cumm [facility] MCV 94.0 81.3 - 96.4 fL [facility] MCH 31.4 27.1 - 33.3 pg [facility] MCHC 33.4 32.3 - 35.7 g/dL [facility] RDW CV 14.4 11.1 - 14.9 % [facility] RDW SD 49.4(H) 35.7 - 48.1 fL [facility] NRBC abs 0.00 0.00 - 0.01 K/cumm [facility] Blood 06/25/2024 8:45 PM CDT 06/25/2024 9:59 PM CDT Braeden Alcantar MD LAB BLOOD ORDERABLES Final Res ult Performing Organization Address [facility] Co de Phone Number [facility] [place] [address] * Phosphorus (06/25/2024 8:45 PM CDT) Pathologist [facility] Phosphorus, pl 2.8 2.3 - 4.5 mg/dL Blood 06/25/2024 8:45 PM CDT 06/25/2024 9:43 PM CDT Braeden Alcantar MD LAB BLOOD ORDERABLES Final Res ult Performing Organization Address [facility] Co de Phone Number [facility] [place] [address] * Magnesium (06/25/2024 8:45 PM CDT) [facility] Magnesium 2.0 1.4 - 2.5 mg/dL Blood 06/25/2024 8:45 PM CDT 06/25/2024 9:43 PM CDT Braeden Alcantar MD LAB BLOOD ORDERABLES Final Res ult Performing Organization Address [facility] Co de Phone Number [facility] [place] [address] * Basic metabolic panel (06/25/2024 8:45 PM CDT) Pathologist [facility] Sodium 139 135 - 145 mmol/L Potassium, pl 3.7 3.3 - 4.9 mmol/L [facility] Chloride 101 97 - 110 mmol/L [facility] CO2 30 22 - 32 mmol/L [facility] Anion gap 8 2 - 15 mmol/L [facility] BUN 11 6 - 25 mg/dL [facility] Creatinine 0.73 0.60 - 1.10 mg/dL [facility] Glucose 137 70 - 199 mg/dL [facility] Comment: Interpretive Data Fasting glucose >/= 126 mg/dl is diagnostic for diabetes. Fasting is defined as no caloric intake for at least 8 hours. Fasting glucose between 100 mg/dl to 125 mg/dl is diagnostic of prediabetes. In a patient with classic symptoms of hyperglycemia or hyperglycemic crisis, a random glucose >/= 200 mg/dl is diagnostic for diabetes. In the absence of unequivocal hyperglycemia, results should be confirmed by repeat testing. The classification and Diagnosis of Diabetes Diabetes Care 2021; 46: S19-S40. Current interpretive data was last revised 2022. Calcium 9.2 8.5 - 10.3 mg/dL [facility] Blood 06/25/2024 8:45 PM CDT 06/25/2024 9:43 PM CDT us Braeden Alcantar MD LAB BLOOD ORDERABLES Final Res ult [facility] Department [place] [address] * eGFR (06/24/2024 9:08 PM CDT) eGFR >90 >=60 mL/min/1. 73 m2 Comment: Interpretive Data Reference Interval Normal >/= 90 mL/min/1.73m2 Mildly decreased* 60 - 89 mL/min/1.73m2 Mildly to moderately decreased 45 - 59 mL/min/1.73m2 Moderately to severely decreased 30 - 44 mL/min/1.73m2 Severely decreased 15 - 29 mL/min/1.73m2 Kidney Failure < 15 mL/min/1.73m2 *Relative to young adult level Estimated glomerular filtration rate is determined by the 2020 CKD-EPI equation recommended by the National Kidney Foundation (A Unifying Approach to GFR Estimation: Recommendations of the NKF-ASK Task Force on Reassessing the Inclusion of Race in Diagnosing Kidney Disease, JASN 2020). The CKD-EPI equation should not be used for patients with unstable renal function and has not been validated in children and those over 70. Current interpretive data was last reviewed 2020. Blood 06/24/2024 9:08 PM CDT 06/24/2024 9:47 PM CDT us Braeden Alcantar MD LAB BLOOD ORDERABLES Final Res ult [facility] Department [place] [address] * (ABNORMAL) CBC without different
--- OUTSIDE RECORDS SUMMARY | 2024-06-27 10:28 | XMS_ITS | Encounter Summary ---
Author Organization [facility] [employer] [facility] Address [address] [place] [address] Phone Care Team Providers Care Chip Drier Name Role Phone Yancy Guerrero MD Primary Care Provider + [phone] Lupillo Reyes MD Unavailable [phone] Encounter Details Date Type Department Care Team (Latest Contact Info) Description 02/28/2023 Orders Only [facility] Wendy Choudhary, ISAIAS [address] [facility] [address] [place], [place] [id number] Social History Tobacco Use Types Packs/Day Years [...] on file Legal 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 Gender Identity Not on file Sexual Orientation Not on file documented as of this encounter Plan of Treatment Not on file documented as of this encounter Procedures Procedure Name Priority Date/Time Associated Diagnosis Comments SCAN - RADIOLOGY/IMAGING 02/28/2023 documented in this encounter Results * SCAN - RADIOLOGY/IMAGING (02/28/2023) Anatomical Region Laterality Modality Other Wendy Choudhary RN Final Result documented in this encounter Visit Diagnoses Not on filedocumented in this encounter Additional Health Concerns Infection Onset Date Last Indicated Resolved Time 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
--- OUTSIDE RECORDS SUMMARY | 2024-06-27 10:28 | XMS_ITS | Encounter Summary ---
Author Organization [facility] [employer] [facility] Address [address] [place] [address] Phone Care Team Providers Care Life Skills Coordinator Volunteer Name Role Phone Yancy Guerrero MD Primary Care Provider + [phone] Lupillo Reyes MD Unavailable [phone] Encounter Details Date Type Department Care Team (Latest Contact Info) Description 04/13/2023 Orders Only [facility] Wendy Choudhary, ISAIAS [address] [facility] [address] [place], [place] [id number] Social History Tobacco Use Types Packs/Day Years [...] on file 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 Gender Identity Not on file Sexual Orientation Not on file documented as of this encounter Plan of Treatment Not on file documented as of this encounter Procedures Procedure Name Priority Date/Time Associated Diagnosis Comments SCAN - LABS 04/13/2023 documented in this encounter Results * SCAN - LABS (04/13/2023) Wendy Choudhary RN Final Result documented in this encounter Visit Diagnoses Not on filedocumented in this encounter Additional Health Concerns Infection Onset Date Last Indicated Resolved Time 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
--- OUTSIDE RECORDS SUMMARY | 2024-06-27 10:28 | XMS_ITS | Encounter Summary ---
Author Organization [facility] [employer] [facility] Address [address] [place] [address] Phone Care Team Providers Care Parts Counter Sales Person Name Role Phone Yancy Guerrero MD Primary Care Provider + [phone] Lupillo Reyes MD Unavailable [phone] Encounter Details Date Type Department Care Team (Latest Contact Info) Description 03/28/2023 Orders Only [facility] Wendy Choudhary, ISAIAS [address] [facility] [address] [place], [place] [id number] Social History Tobacco Use Types Packs/Day Years [...] on file 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 Gender Identity Not on file Sexual Orientation Not on file documented as of this encounter Plan of Treatment Not on file documented as of this encounter Procedures Procedure Name Priority Date/Time Associated Diagnosis Comments SCAN - LABS 03/28/2023 documented in this encounter Results * SCAN - LABS (03/28/2023) Wendy Choudhary RN Final Result documented in this encounter Visit Diagnoses Not on filedocumented in this encounter Additional Health Concerns Infection Onset Date Last Indicated Resolved Time 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
--- OUTSIDE RECORDS SUMMARY | 2024-06-27 10:28 | XMS_ITS | Encounter Summary ---
Author Organization [facility] [email or web address] [facility] Address [address] [place] [address] Phone Care Team Providers Care Camp Assistant Name Role Phone Yancy Guerrero MD Primary Care Provider + [phone] Lupillo Reyes MD Unavailable [phone] Encounter Details Date Type Department Care Team (Latest Contact Info) Description 04/03/2023 Orders Only [facility] Wendy Choudhary, ISAIAS [address] [facility] [address] [place], [place] [id number] Social History Tobacco Use Types Packs/Day Years [...] on file 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 Gender Identity Not on file Sexual Orientation Not on file documented as of this encounter Plan of Treatment Not on file documented as of this encounter Procedures Procedure Name Priority Date/Time Associated Diagnosis Comments SCAN - LABS 04/03/2023 documented in this encounter Results * SCAN - LABS (04/03/2023) Wendy Choudhary RN Final Result documented in this encounter Visit Diagnoses Not on filedocumented in this encounter Additional Health Concerns Infection Onset Date Last Indicated Resolved Time 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
--- OUTSIDE RECORDS SUMMARY | 2024-06-27 10:28 | XMS_ITS | Encounter Summary ---
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 Gender Identity Not on file Sexual Orientation Not on file documented as of this encounter Plan of Treatment Not on file documented as of this encounter Procedures Procedure Name Priority Date/Time Associated Diagnosis Comments SCAN - RADIOLOGY/IMAGING 03/06/2023 documented in this encounter Results * SCAN - RADIOLOGY/IMAGING (03/06/2023) Anatomical Region Laterality Modality Other Wendy Choudhary RN Final Result documented in this encounter Visit Diagnoses Not on filedocumented in this encounter Additional Health Concerns Infection Onset Date Last Indicated Resolved Time 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
--- OUTSIDE RECORDS SUMMARY | 2024-06-27 10:28 | XMS_ITS | Encounter Summary ---
Author Organization [facility] Address [address] [place] [address] Phone Care Team Providers Care Booking Agent Name Role Phone Yancy Guerrero MD Primary Care Provider + [phone] Lupillo Reyes MD Unavailable [phone] Encounter Details Date Type Department Care Team (Latest Contact Info) Description 04/28/2023 Orders Only [facility] Wendy Choudhary, ISAIAS [address] [facility] [address] [place], [place] [id number] Social History Tobacco Use Types Packs/Day Years [...] on file Legal 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 Gender Identity Not on file Sexual Orientation Not on file documented as of this encounter Plan of Treatment Not on file documented as of this encounter Procedures Procedure Name Priority Date/Time Associated Diagnosis Comments SCAN - LABS 04/28/2023 documented in this encounter Results * SCAN - LABS (04/28/2023) Wendy Choudhary RN Final Result documented in this encounter Visit Diagnoses Not on filedocumented in this encounter Additional Health Concerns Infection Onset Date Last Indicated Resolved Time 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
--- OUTSIDE RECORDS SUMMARY | 2024-06-27 10:29 | XMS_ITS | Encounter Summary ---
Author Organization [facility] [employer] [facility] Address [address] [place] [address] Phone Care Team Providers Care Smooth Stucco Resurfacer Name Role Phone Yancy Guerrero MD Primary Care Provider + [phone] Lupillo Reyes MD Unavailable [phone] Encounter Details Date Type Department Care Team (Late st Contact Info) Description 06/24/[address] [facility] [address] [facility] Medical Office [address] [place] [address] Chelsea Haywood MD [address] [facility] [address] [place], [place] [id number] Social History Tobacco Use Types Packs/Day Years Used Date Smoking Tobacco: Every Day Cigarettes 0.2 2 Smokeless Tobacco: Never Comments:Two packs per week for last 2 years Alcohol Use Standard Drinks/Week Comments Yes 0 (1 standard drink = 0.6 oz pur e alcohol) socially [facility] Utilities Answer Date Recorded In the past 12 months has [employer], gas, oil, or water company threatened [...] often do you attend chur ch or anglican services? 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 Infectious Diseases Infectious Diseases OPAT Sign Off Note General Information OPAT Program: [facility] ID Team: Gen LEON 2 Responsible ID Provider: Nancy Antibiotic Indication: Bloodstream infection (BSI), UTI/ Antibiotics start date: 06/21/24 Antibiotics start date reason: right ureteral Stent placement Firm stop: Yes Antibiotics anticipated stop date: 06/30/24 Pathogens: E coli Recommended Clinic Follow-up: At the end of therapy/Within 1-2 weeks of discharge Antimicrobials Antimicrobials A-L: Ertapenem Antimicrobial Routes Ertapenem Route: Infusion Parenteral Antimicrobials Ertapenem Dose: 1 g Ertapenem Frequency: Every 24 hours Ertapenem Start Date: 06/21/24 Ertapenem End Date: 06/30/24 Labs Labs - Weekly Labs: CBC with diff and platelet, CMP Fax Labs To: [facility] ([phone]) Call For a Change in Clinical Status, Critical/Abnormal Results, or Order Verification: [facility] ([phone]) OPAT Summary of Consult Summary of Consult: 64 y.o. female with pmh anxiety/depression, AF (Xarelto), HTN, HLD transferred from [facility] for higher level of care. Had Right ureterolithiasis with right sided pyelonephritis. ID being consulted for antibiotic recommendations. Bcx on 06/20 were positive for E coli in 1/2 sets with the following unusual susceptibility pattern: Amp-Sul-S, Cefepime-R, Ceftazidime -S, Cipro-R, Sam-S, Imi-S, Pip-tazo-S, Bactrim-R S/p Cystoscopy, with stone extraction and Right ureteral stent placement on 06/21 , patient feeling better after that. As per op [...] has been addressed by the urological procedure. We recommended Ertapenem 1g q24hrs days for a total course of 10 days from the procedure with EOT on 06/30/2024. She will follow up at the ID clinic in 2 weeks. 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
--- OUTSIDE RECORDS SUMMARY | 2024-06-27 10:29 | XMS_ITS | Encounter Summary ---
Author Organization [facility] Healthcare Address [address] [place] [address] Care Team Providers Care Stadium Attendant Name Role Phone Yancy Guerrero MD Primary Care Provider + [phone] Lupillo Reyes MD Unavailable [phone] Encounter Details Date Type Department Care Team (Late st Contact Info) Description 06/26/2024 Orders Only [facility] Home Care Services [address] [facility] [address] [place] [address] Laurie Tierney, [facility]ly [facility] Social History Tobacco Use Types Packs/Day Years Used Date Smoking Tobacco: Every Day Cigarettes 0.2 2 Smokeless Tobacco: Never Comments:Two packs per week for last 2 years Alcohol Use Standard Drinks/Week Comments Yes 0 (1 standard drink = 0.6 oz pur e alcohol) socially [facility] Utilities Answer Date Recorded In the past 12 months has [employer], gas, oil, or water [employer] threatened to shut off services in your [...] week 06/02/2023 How often do you attend [facility] or worship services? More than 4 times per year 06/02/2023 Do you belong to any clubs o r organizations such as sikhism groups, unions, fraternal or athletic groups, or [...] to sleep or slept in a senior care (including now)? No 06/02/2023 Personal Safety Answer Date Recorded Have you ever been in or are you currently in a harmful physical or emotional relationship or is someone making you feel afraid or unsafe? 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 Gender Identity Not on file Sexual Orientation Not on file documented as of this encounter Plan of Treatment Not on file documented as of this encounter Visit Diagnoses Not on filedocumented in this encounter Orders Nursing Count Last Ordered Date First Orde red Date MISCELLENEOUS ORDER 1 06/26/2024 documented in this encounter Additional Health Concerns Infection Onset Date Last Indicated Resolved Time MDR gram neg/ESBL 2024 2024 documented as of this encounter Care Teams Stadium Attendant Relationship Specialty Start Date End Date Yancy Guerrero MD [address] [place] [address] PCP - General 05/22/16 Lupillo Reyes MD [address] [address] Consulting Physician Orthopedic Surgery 07/26/22 documented as of this encounter
--- OUTSIDE RECORDS SUMMARY | 2024-06-27 10:29 | XMS_ITS | Patient Health Record ---
Author Organization [facility] Address [address] [facility] [address] [place] [address] Care Team Providers Care Electrical Panel Builder Name Role Phone Yancy Guerrero MD Primary Care Provider UnavailArcelia Gonzalez Unavailable [phone] Reason For Referral No Information Social History [...] Problem Status W/U Status Risk Notes Problem Major depressive disorder, recurrent severe without psychotic features (F33.2) Active confirmed Problem Generalized anxiety disorder (79184504) Generalized anxiety disorder (F41.1) Active confirmed Problem Posttraumatic stress disorder (26385372) PTSD (post-traumatic stress disorder) (F43.10) Active confirmed Problem Alcohol abuse (25337214) Alcohol abuse (F10.10) Active confirmed Encounters Encounter Location Date Provider Diagnosis [facility] [address] [place] [address] 01/18/2024 Arcelia Tripp Major depressive disorder, recurrent severe without psychotic features F33.2 ; Generalized anxiety disorder F41.1 and Alcohol abuse F10.10 [facility] [address] [place] [address] 01/23/2024 Arcelia Tripp Major depressive disorder, recurrent severe without psychotic features F33.2 ; Generalized anxiety disorder F41.1 ; Alcohol abuse F10.10 and PTSD (post-traumatic stress disorder) F43.10 [facility] [address] [place] [address] 02/02/2024 Arcelia Tripp [place] [facility], Walk[facility] [address] [place] [address] 02/28/2024 Arcelia Tripp Major depressive disorder, recurrent severe without psychotic features F33.2 ; Generalized anxiety disorder F41.1 ; Alcohol abuse F10.10 and PTSD (post-traumatic stress disorder) F43.10 [facility] [address] [place] [address] 02/13/2024 Arcelia Tripp [facility] [address] [place] [address] 02/26/2024 Arcelia Tripp [facility] [email or web address] [facility] [address] [place] [address] 03/06/2024 Arcelia Tripp Assessments Encounter Date Diagnosis (ICD Code) Assessment Notes Treatment Notes Treatment Clinical Notes Section Notes 01/18/2024 Major depressive disorder, recurrent severe without psychotic features (ICD-10 - F33.2) Marital Status: Living Arrangement: lives alone Children: 2 daughters Support System: daughters Highest Level of Education: completed college 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: Denied Legal History: DUI, 04/26/22 Family History of MH/RADHAMES: alcohol, anxiety, PTSD, bipolar Physical Medical Conditions: hypertension, afib, elevated lipids Spiritual Beliefs: Synagogue Suicidal Ideation/Self Harm: Denied Homicidal Ideation: Denied [...] weekly support group meetings, like AA or [employer], to sustain sobriety and develop a support [...] Level of Education: completed college 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 2. Family-related Stress - [...] - Offer information on support groups like Al-Anovirginie and Adult Children of Alcoholics and Dysfunctional [...] of local support groups, including [employer] and [employer], for additional support. 2. Family-related Stress - [...] to address underlying issues. Utilize a daily corporate event planner incorporating affirmations and goals to foster [...] of the potential tear. Consult with an pc support specialist for a comprehensive evaluation and to [...] to address underlying issues. Utilize a daily corporate event planner incorporating affirmations and goals to foster [...] of the potential tear. Consult with an pc support specialist for a comprehensive evaluation and to [...] of local support groups, including [employer] and [employer], for additional support. 2. Family-related Stress - [...] to address underlying issues. Utilize a daily corporate event planner incorporating affirmations and goals to foster [...] of the potential tear. 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 2. Family-related Stress - [...] - Offer information on support groups like JensenAnovirginie and Adult Children of Alcoholics and Dysfunctional [...] to address underlying issues. Utilize a daily corporate event planner incorporating affirmations and goals to foster [...] of the potential tear. Consult with an pc support specialist for a comprehensive evaluation and to [...] Insured Coverage Start Date Coverage End Date [facility] [address] [place] [address] [phone] [id number] Camille Hendricks Self - patient is the [...]
--- OUTSIDE RECORDS SUMMARY | 2024-06-27 10:29 | XMS_ITS ---
Author Organization [facility] Address [address] [facility] [address] [place] [address] Care Team Providers Care Marine Engineering Consultant Name Role Phone Cesar ROSARIO, Yancy Primary Care Provider Arcelia Mullins [phone] Social History Sex Assigned At : Social History Observation Description Sex Assigned At Female Encounters Encounter Location Date Provider Diagnosis [facility], [facility] [address] [facility] [address] [place] [address] 03/06/2024 Arcelia Tripp Plan Of Treatment No Information Progress Notes * Camille KOODOB: [birth year] (64 yo F)Acc No.[id number]:03/06/2024 Patient: Anabel BARRCamille CROW Provider: Ami Tripp :1960 A ge:63 Y S ex:Female Date:03/06/2024 Phone: Address:[address] [place], [place] [id number] Pcp:Yancy Guerrero MD Data: * Chief Complaints: * Assessment: Plan: * Treatment: * Billing Information: * Visit Code: * Procedure Codes: * Electronic signature of Roman Tripp LCPC on 06/27/2024 at 10:28 AM CDT Sign off status: Pending Signatures: No Ad Hoc Signature Added * Provider: Ami Tripp Date: 03/06/2024 Generated for Veronika tovar/Dipika/eTransminderjit on: 0 06/27/2024 10:28 AM CDT
--- OUTSIDE RECORDS SUMMARY | 2024-06-27 10:29 | XMS_ITS | Continuity of Care Document ---
Author Organization [facility] Address [address] [facility] [address] [place] [address] Phone Care Team Providers Care Bible Worker Name Role Phone Lupillo Reyes MD Unavailable [...] Date Provider Providers Copied on Encounter [facility], [address], [id number], [place] [phone] [facility] No Information 4 Eric [address]. [address] [address], [place], [place], [id number] , [place]. tel: [phone] [facility], [address], [id number], [place] tel:[phone] [facility] No Information 4 Eric Wesley. [address], [id number] , [place]. tel: [phone] Office/outpat ient visit,est, [facility], [address], [id number], [place] [phone] Rt Shoulder (chief complaint) Complete rotatr-cuff tear/ruptr of r shoulder, not trauma 4 Eric Wesley. [address], [id number] , [place]. tel: [phone] Office/outpat ient visit,est, [facility] [place] [facility], [address], [id number], [place] tel:[phone] Right shoulder (chief complaint) Complete rotatr-cuff tear/ruptr of r shoulder, not trauma 3 Eric Wesley. [address] [facility], [address] [address], [place], [place], [id number] , [place]. tel: [phone] Office/outpat ient visit,est, [facility] [place] [facility], [address], [id number], [place] tel:[phone] Follow up (chief complaint) Complete rotatr-cuff tear/ruptr of r shoulder, not trauma 3 Eric Wesley. [address] [facility], [place] [address], [place], [place], [id number] , [place]. tel: [phone] Office/outpat ient visit,est, [facility], [address] [address], [place], [place], [id number], [place] tel:[phone] [facility] Post op check up (chief complaint) Complete rotatr-cuff tear/ruptr of r shoulder, not trauma 3 Eric Wesley. [address] [facility], [place] [address], [place], [place], [id number] , [place]. tel: [phone] [facility], [address] [place] [address], [id number], [place] tel:[phone] [facility] Right shoulder (chief complaint) Complete rotatr-cuff tear/ruptr of r shoulder, not trauma 3 Eric Wesley. [address] [facility], [place] [address], [place], [place], [id number] , [place]. tel: [phone] [facility], [address], [id number], [place] tel:[phone] [facility] Right shoulder (chief complaint) Complete rotatr-cuff tear/ruptr of r shoulder, not trauma 3 Eric Wesley. [address] [facility], [address], [id number] , [place]. tel: [phone] [facility], [address] [place] [address], [id number], [place] tel:[phone] [facility] No Information 3 Eric Wesley. [address] [facility], [address] [address], [place], [place], [id number] , [place]. tel: [phone] [facility], [address] [place] [address], [id number], [place] tel:[phone] [facility] Complete rotatr-cuff tear/ruptr of r shoulder, not trauma 3 Eric Wesley. [address] [facility], [address], [place], [place], [id number] , [place]. tel:[phone] Office consultation, moderate MDM [facility], [address] [facility], [place], [place], [id number], [place] tel:[phone] [facility] Right shoulder muscle tear/pain (chief complaint) Complete rotatr-cuff tear/ruptr of r shoulder, not trauma 3 Eric Lupillo. [address] [facility], [address], [place], [place], [id number] , [place]. [phone] Referring Provider: Lupillo Mueller, [address] [facility] [address], [place], [address] . tel:[phone] Family History Family Member Type Diagnosis Age [...] type Covered alliance party ID Authoriza tion(s) [facility] Workers Compensation Adm WC [id number] Social History Type Description Quantity Date [...]
--- OUTSIDE RECORDS SUMMARY | 2024-06-27 10:29 | XMS_ITS | Encounter Summary ---
Author Organization [facility] Address [address] [place] [address] Care Team Providers Care French Polisher Name Role Phone Yancy Guerrero MD Primary Care Provider + [phone] Lupillo Reyes MD Unavailable [phone] Encounter Details Date Type Department Care Team (Late st Contact Info) Description 06/20/2024 Hospital Encounter [facility] [address] [place] [address] Social History Tobacco Use Types Packs/Day Years Used Date Smoking Tobacco: Every Day Cigarettes 0.2 2 Smokeless Tobacco: Never Comments:Two packs per week for last 2 years Alcohol Use Standard Drinks/Week Comments Yes 0 (1 standard drink = 0.6 oz pur e alcohol) socially [facility] Utilities Answer Date Recorded In the past 12 months has [employer], gas, oil, or water company threatened to [...] any clubs o r organizations such as restorationism groups, unions, fraternal or athletic groups, or [...] on file 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 Gender Identity Not on file Sexual Orientation Not on file documented as of this encounter Plan of Treatment Not on file documented as of this encounter Visit Diagnoses Not on filedocumented in this encounter Additional Health Concerns Infection Onset Date Last Indicated Resolved Time MDR gram neg/ESBL 2024 2024 documented as of this encounter Care Teams French Polisher Relationship Specialty Start Date End Date Yancy Guerrero MD [address] [place] [address] PCP - General 05/22/16 Lupillo Reyes MD [address] [place] [address] Consulting Physician Orthopedic Surgery 07/26/22 documented as of this encounter
--- OUTSIDE RECORDS SUMMARY | 2024-06-27 10:29 | XMS_ITS | Encounter Summary ---
Author Organization [facility] Address [address] [place] [address] Care Team Providers Care Deli Associate Name Role Phone Yancy Guerrero MD Primary Care Provider + [phone] Lupillo Reyes MD Unavailable Encounter Details Date Type Department Care Team (Late st Contact Info) Description 06/27/2024 Telephone [facility] [address] [place] [id number] Dulce Maria Benites RN Social History Tobacco Use Types Packs/Day Years Used Date Smoking Tobacco: Every Day Cigarettes 0.2 2 Smokeless Tobacco: Never Comments:Two packs per week for last 2 years Alcohol Use Standard Drinks/Week Comments Yes 0 (1 standard drink = 0.6 oz pur e alcohol) socially [facility] Utilities Answer Date Recorded In the past 12 months has [employer], gas, oil, or water [employer] threatened to shut off services in your [...] How often do you attend chur or synagogue services? More than 4 times per year 06/02/2023 Do you belong to any clubs o r organizations such as sabianism groups, unions, fraternal or athletic groups, or [...] place to sleep or slept in a alf (including now)? No 06/02/2023 Personal Safety Answer Date Recorded Have you ever been in or are you currently in a harmful physical or emotional relationship or is someone making you feel afraid or unsafe? 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 Lucya call to [facility] spoke with Dulce Maria to inquire how they obtained orders since they had not been established as accepting provider to see the patient. Dulce Maria stated their nurse obtained orders from the patient discharge information with nurse visit and they will manage home healthservices. Informed Dulce Maria another agency had already accepted but they will cancel since [facility] in place. 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
--- OUTSIDE RECORDS SUMMARY | 2024-06-27 10:29 | XMS_ITS | Clinical Summary ---
Author Organization [facility] Address [address] [facility] [place] [address] Phone Care Team Providers Care Cosmetic Dentist Name Role Phone Yancy Guerrero MD Primary [...] on file Legal Sex Female 4:27 AM SHEET METAL SHOP SUPERVISOR Gender Identity Not on file Sexual Orientation Not on file Occupation Industry Job Start Date Job End Date Not on file Not on file Not on file Not on file Last Filed Vital Signs Vital Sign Reading Time Taken Comments Blood Pressure 132/89 12/30/2016 11:52 AM SHEET METAL SHOP SUPERVISOR Pulse 92 12/30/2016 11:52 AM SHEET METAL SHOP SUPERVISOR Temperature 36.9 C (98.4 F) 01/29/2009 11:30 AM SHEET METAL SHOP SUPERVISOR Respiratory Rate 16 01/29/2009 11:30 AM SHEET METAL SHOP SUPERVISOR Oxygen Saturation 93% 01/29/2009 11:30 AM SHEET METAL SHOP SUPERVISOR Inhaled Oxygen Concentration - - Weight 76.7 kg (169 lb) 12/30/2016 11:52 AM SHEET METAL SHOP SUPERVISOR Height 167.6 cm (5' 6 ) 12/30/2016 11:52 AM SHEET METAL SHOP SUPERVISOR Body Mass Index 27.28 12/30/2016 11:52 AM SHEET METAL SHOP SUPERVISOR Plan of Treatment Health Maintenance Due Date [...] series) 2036 Medical Devices Implanted Type Area Leadership Development Instructor Device Identifier Shelf Expiration Date Model / Serial / Lot Sling Monarc [id number] Implanted:Qty: 1 on 01/28/2009 at [facility] Sling Pelvis [facility] [employer] [id number] / / Procedures Procedure Name Priority Date/Time [...] ASSESSMENT: BI-RADS CATEGORY 1: Negative DICTATION LOCATION: [facility] Narrative 10/31/2019 3:53 PM CDT BILATERAL SCREENING [...] ASSESSMENT: BI-RADS CATEGORY 1: Negative DICTATION LOCATION: [facility] Tod Dallas MD MAMMO ORDERABLES Final Result from Last 3 Months or Most Recently Relevant to Health Maintenance Insurance [place] [id number] POS II Advance Directives For more information, please contact: [phone] * Full Code (Latest Code Status on File) Date Activated Date Inactivated Comments 01/28/2009 9:06 PM 01/29/2009 4:29 PM * Full Code Date Activated Date Inactivated Comments 01/28/2009 7:38 PM 01/28/2009 9:06 PM * Full Code Date Activated Date Inactivated Comments 01/28/2009 2:46 PM 01/28/2009 7:38 PM Care Teams Cosmetic Dentist Relationship Specialty Start Date End Date Yancy Guerrero MD [address] [place] [phone] PCP - General Internal Medicine 09/22/14
--- OUTSIDE RECORDS SUMMARY | 2024-06-27 10:30 | XMS_ITS | Encounter Summary ---
Author Organization [facility] [employer] [facility] Address [address] [place] [address] Phone Care Team Providers Care Territory Manager General Sales Name Role Phone Yancy Guerrero MD Primary Care Provider + [phone] Lupillo Reyes MD Unavailable [phone] Encounter Details Date Type Department Care Team (Latest Contact Info) Description 04/10/2013 Orders Only [facility] Wendy Choudhary RN [address] 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 08/16/2021 08/16/2021 12/14/2021 3:05 AM C DT COVID: Suspected 09/23/2021 09/23/2021 09/23/2021 10:56 PM CDT COVID: Suspected 09/29/2021 09/29/2021 09/29/2021 10:32 PM CDT COVID: Suspected 12/24/2021 12/25/2021 12/25/2021 3:05 AM DIVERSIFIED CROPS II FARMWORKER COVID: Suspected 12/25/2021 12/25/2021 12/26/2021 3:05 AM DIVERSIFIED CROPS II FARMWORKER COVID: Suspected 12/25/2021 12/25/2021 12/26/2021 3:49 PM DIVERSIFIED CROPS II FARMWORKER MDR gram neg/ESBL 2024 2024 documented as of this encounter Care Teams Territory Manager General Sales Relationship Specialty Start Date End Date Yancy Guerrero MD [address] [place] [address] PCP - General 05/22/16 Lupillo Reyes MD [address] [facility] [address] [place] [address] Consulting Physician Orthopedic Surgery 07/26/22 documented as of this encounter
--- OUTSIDE RECORDS SUMMARY | 2024-06-27 10:30 | XMS_ITS | Encounter Summary ---
Author Organization [facility] [employer] [facility] Address [address] [place] [address] Phone Care Team Providers Care Counselor/Art Therapist Name Role Phone Yancy Guerrero MD Primary Care Provider + [phone] Lupillo Reyes MD Unavailable [phone] Encounter Details Date Type Department Care Team (Latest Contact Info) Description 11/25/2010 Orders Only [facility] Wendy Choudhary, ISAIAS [address] [facility] [address] [place], [place] [id number] Social History Tobacco Use Types Packs/Day Years Used Date Smoking Tobacco: Never Assessed Comments Unknown Sex and Gender Information Value Date Recorded Sex Assigned at Not on file Legal 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 SPINNER FRAME Gender Identity Not on file Sexual Orientation [...] COVID: Suspected 12/06/2019 12/06/2019 12/20/2019 3:05 AM SPINNER FRAME COVID: Suspected 01/14/2021 01/14/2021 01/14/2021 9:43 PM SPINNER FRAME COVID: Suspected 01/17/2021 01/17/2021 01/18/2021 5:33 AM SPINNER FRAME COVID: Suspected 08/06/2021 08/06/2021 08/07/2021 3:05 AM CDT COVID: Suspected 08/06/2021 08/06/2021 08/07/2021 3:18 AM CDT COVID19 08/06/2021 08/06/2021 08/16/2021 3:05 AM CDT COVID: Recovered Comment:Added based on recent COVID infection. 08/16/2021 08/16/2021 12/14/2021 3:05 AM C DT COVID: Suspected 09/23/2021 09/23/2021 09/23/2021 10:56 PM CDT COVID: Suspected 09/29/2021 09/29/2021 09/29/2021 10:32 PM CDT COVID: Suspected 12/24/2021 12/25/2021 12/25/2021 3:05 AM SPINNER FRAME COVID: Suspected 12/25/2021 12/25/2021 12/26/2021 3:05 AM SPINNER FRAME COVID: Suspected 12/25/2021 12/25/2021 12/26/2021 3:49 PM SPINNER FRAME MDR gram neg/ESBL 2024 2024 documented as of this encounter Care Teams Counselor/Art Therapist Relationship Specialty Start Date End Date Yancy Guerrero MD [address] [place] [address] PCP - General 05/22/16 Lupillo Reyes MD [address] [facility] [address] [place] [address] Consulting Physician Orthopedic Surgery 07/26/22 documented as of this encounter
--- OUTSIDE RECORDS SUMMARY | 2024-06-27 10:30 | XMS_ITS | Encounter Summary ---
Author Organization [facility] Address [address] [place] [address] Care Team Providers Care Community Service Manager Name Role Phone Yancy Guerrero MD Primary Care Provider + Encounter Details Date Type Department Care Team (Latest Contact Info) Description 03/10/[address] 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
--- OUTSIDE RECORDS SUMMARY | 2024-06-27 10:30 | XMS_ITS | Clinical Summary ---
Author Organization [facility] Address [facility] [place] [address] Care Team Providers Care Greenskeeper Supervisor Name Role Phone Yancy Guerrero MD Primary Care Provider [phone] Encounters Date Type Department Care Team Description 06/26/2024 Scan [facility] [place] Scheduling [address] [place] [address] Scanned, [facility] from Last 3 Months Social History Tobacco Use Types Packs/Day Years Used Date Smoking Tobacco: Never Assessed Comments Unknown Sex and Gender Information Value Date Recorded Sex Assigned at Female 06/26/2024 10:06 AM CDT Legal Sex Female 6:43 PM CDT Gender Identity Female 06/26/2024 10:06 AM CDT Sexual Orientation Not on file Plan of Treatment Health Maintenance Due Date Last Done Comments Cervical Cancer Screening Pa p Smear (Age 30 to 64) Every 3 Years 1961 Colorectal Cancer Screening Colonoscopy (10 Years) 1961 Annual Physical 1964 Hepatitis C 06/22/1979 DTaP, Tdap and Td Vaccines ( 1 - Tdap) 1980 Cervical Cancer Screening Pa p with HPV Testing (Age 30 to 64) Every 5 Years 06/22/1991 Cervical Cancer Screening with HPV 06/22/1991 Mammogram Screening 2001 Pneumococcal Vaccine: 50+ Ye ars (1 of 1 - PCV) 06/22/2011 Zoster Vaccines (1 of 2) 06/22/2011 COVID-19 Vaccine (2023-2 5 season) 2023 RSV Immunization or 60+ Years (1 - 1-dose 75+ series) 2036 Meningococcal B Vaccine Aged Out No l onger eligible based on patient's age to complete this topic Meningococcal Vaccine Aged Out No laina bud eligible based on patient's age to complete this topic RSV Immunizations Under 20 Months Aged Out No longer eligible based on patient's age to complete this topic Insurance [employer] Care Teams Greenskeeper Supervisor Relationship Specialty Start Date End Date Yancy Guerrero MD [address] [place] [address] PCP - General INTERNAL MEDICINE 06/26/24
--- OUTSIDE RECORDS SUMMARY | 2024-06-27 10:30 | XMS_ITS | Encounter Summary ---
Author Organization [facility] Address [address] [place] [address] Care Team Providers Care Machine Stitcher Name Role Phone Yancy Guerrero MD Primary Care Provider + Encounter Details Date Type Department Care Team (Latest Contact Info) Description 01/24/2008 Outpatient Historical HIS [facility] Tod Cifuentes, [address] [facility] [address] [place] [address] Other Screening Mammogram Social History Tobacco Use Types Packs/Day Years Used Date Smoking Tobacco: Never Assessed Comments Unknown Sex and Gender Information Value Date Recorded Sex Assigned at Not on file Legal Sex Female 4:27 AM INNOVATION ANALYST Gender Identity Not on file Sexual Orientation Not on file documented as of this encounter Plan of Treatment Not on file documented as of this encounter Procedures Procedure Name Priority Date/Time Associated Diagnosis Comments MAMMO SCREEN BILAT W OR WO CAD Routine 01/24/2008 9:19 AM INNOVATION ANALYST documented in this encounter Results * MAMMO DIGITAL SCREEN BILAT (01/24/2008 9:19 AM INNOVATION ANALYST) Anatomical Region Laterality Modality Breast Bilateral Other 01/24/2008 9:19 AM INNOVATION ANALYST Narrative 01/25/2008 7:03 PM INNOVATION ANALYST [facility] [address] [place], [place] [address] Admit Date: 01/24/2008 JULI KOO Sex: F Admit Prov: TOD DALLAS Date: 1960 Primary Care Prov: PCP, UNKNOWN CMRN: [id number] Room: [facility] SSN: [id number] IMAGING SERVICES Ordering Prov: TOD DALLAS Accession Number: [id number] Interpretation BILATERAL SCREENING DIGITAL MAMMOGRAMS WITH COMPUTER [...] [facility] Procedure Note Olena Christy - 01/25/2008 [id number] [place], [place] [address] Admit Date: 01/24/2008 HANANEJULI Sex: F Admit Prov: TOD DALLAS Date: 1960 Primary Care Prov: PCP, UNKNOWN CMRN: [id number] [facility] [id number] IMAGING SERVICES Ordering Prov: TOD DALLAS Interpretation [...] mammogram documented in this encounter Care Teams Machine Stitcher Relationship Specialty Start Date End Date Yancy Guerrero MD [address] [place] [phone] PCP - General Internal Medicine 09/22/14 documented as of this encounter
--- OUTSIDE RECORDS SUMMARY | 2024-06-27 10:30 | XMS_ITS | Encounter Summary ---
Author Organization [facility] Address [address] [place] [address] Phone Care Team Providers Care Cooperative Manager Name Role Phone Yancy Guerrero MD Primary Care Provider + [phone] Lupillo Reyes MD Unavailable [phone] Encounter Details Date Type Department Care Team (Late st Contact Info) Description 06/24/2024 Telephone [facility] [address] [facility] [address] [place] [address] [place] [address] Pat Calvo Social History Tobacco Use Types Packs/Day Years Used Date Smoking Tobacco: Every Day Cigarettes 0.2 2 Smokeless Tobacco: Never Comments:Two packs per week for last 2 years Alcohol Use Standard Drinks/Week Comments Yes 0 (1 standard drink = 0.6 oz pur e alcohol) socially [facility] Utilities Answer Date Recorded In the past 12 months has [employer], gas, oil, or water [employer] threatened to shut off services in your [...] week 06/02/2023 How often do you attend [facility] or religion services? More than 4 times per year 06/02/2023 Do you belong to any clubs o r organizations such as jehovah's witness groups, unions, fraternal or athletic groups, or [...] place to sleep or slept in a detention (including now)? No 06/02/2023 Personal Safety Answer Date Recorded Have you ever been in or are you currently in a harmful physical or emotional relationship or is someone making you feel afraid or unsafe? 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 no TYPE OF CONSULT: general CALLER'S NAME: Rosalinda CALLER'S PAGER: [phone] PATIENT'S NAME: Camille Shultz : 1960 CAMPUS: [place] PATIENT'S LOCATION: [facility] REASON FOR CONSULT: Management of Bradycardia ATTENDING PHYSICIAN: Dr. 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
--- OUTSIDE RECORDS SUMMARY | 2024-06-27 10:30 | XMS_ITS | Encounter Summary ---
Author Organization [facility] Healthcare Address [address] [place] [address] Care Team Providers Care Advisory Application Developer Name Role Phone Yancy Guerrero MD Primary Care Provider + [phone] Lupillo Reyes MD Unavailable [phone] Reason for Referral * Home Health (Routine) - Pending Review Specialty Diagnoses / Procedures Referred By Conttammie t Referred To Contact Home Health Services / Home Health and Hospice Diagnoses Sepsis without acute organ dysfunction, due to unspecified organism (HCC) Braeden Alcantar MD [address] [facility] [address] Phone: tel: fax: [facility] Services [address] [place] [address] [address] [place] [address] Phone: tel: fax: Referral ID Status Reason Start Date Expiration Date Visits Requested Visits Authorized [id number] Pending Review Specialty Services Required 06/24/2024 07/24/2025 1 1 Question Answer AMBREFHHSERV Home Health and Infusion Primary disciplines requested: [facility] IV Catheter Maintenance IV Catheter Types: PICC Line Number of Lumens: 1 IV Catheter Flush Care Instructions: Evaluate and manage the IV catheter to maintain patency IV Catheter Dressing Change Instructions: Evaluate, manage, and change the dressing weekly Infusion Services IV Catheter Maintenance (Infusion), Infusion Therapy Infusion Therapy: Antibiotic Therapy How many antibiotic therapies: 1 ABX Medication 1: ertapenem ABX Dose 1: 1g ABX Route 1: IV ABX Frequency 1: every 24 hours ABX Therapy Duration 1: 10 days, end date on 06/30 Physician to follow patient's care (the person listed here will be responsible for signing ongoing orders): Other Comment: Dr. Alcantar Requested Start of Care Date: 24-48 hours I certify that, based on my findings, the following services are medically necessary skilled home health services: IV Catheter Maintenance I certify that, based on my findings, the following services are medically necessary skilled home infusion services: IV Catheter Maintenance (Infusion) I attest that I or another qualified licensed provider saw the patient 90 days prior to or 30 days post admission and this face to face encounter meets the necessary Home Health requirements. The face to face encounter occurred on (date): 06/24/2024 The encounter with the patient was in whole, or in part, for the following medical condition, which is the primary reason for home health care. (List medical condition): positive blood cultures with pyleonephritis Clinical findings that support the need for home care: Medical condition requiring skilled assessment/education I certify that my clinical findings support patient's homebound status. Homebound criteria met because: Other Comment: infusion * Consultation (Routine) - Pending Review Specialty Diagnoses / Procedures Referred By Cinthia bailey Referred To Contact Infectious Diseases Diagnoses Pyelonephritis of right kidney Braeden Alcantar MD [address] [facility] [place] [address] Phone: tel: fax: [facility] (All Locations) Referral ID Status Reason Start Date Expiration Date Visits Requested Visits Authorized [id number] Pending Review Specialty Services Required SLAUGHTER IP to OP Coverage Verification Completed 5 07/24/2025 1 1 Question Answer Please select the performing region: [facility] (All Locations) [167] # of visits: 1 Reason for Visit * Reason Comments Female Dysuria Fever * Auth/Cert (Routine) Specialty Diagnoses / Procedures Referred By Cinthia bailey Referred To Contact Diagnoses Kidney stone Sepsis without acute organ dysfunction, due to unspecified organism (HCC) uti, kidney stone with hydronephrosis Procedures NA Referral ID Status Reason Start Date Expiration Date Visits Re quested Visits Authorized [id number] 1 1 Encounter Details Date Type Department Care Team (Latest Contact Info) Description 06/20/2024 10:10 PM CDT - 06/26/2024 6:14 PM CDT Hospital Encounter [facility] [place] [address] Carlos Palomares MD [address] [place] [address] Braeden Alcantar MD [address] [facility] [place] [address] Kvng Mendenhall MD [address] [place] [address] Sepsis without acute organ dysfunction, due to unspecified organism (HCC) (Primary Dx); Kidney stone; Bradycardia; Pyelonephritis of right kidney Discharge Disposition: Discharge to home, home health skilled care Social History Tobacco Use Types Packs/Day Years Used Date Smoking Tobacco: Every Day Cigarettes 0.2 2 Smokeless Tobacco: Never Comments:Two packs per week for last 2 years Alcohol Use Standard Drinks/Week Comments Yes 0 (1 standard drink = 0.6 oz pur e alcohol) socially Respectance Utilities Answer Date Recorded In the past 12 months has [employer], [employer], oil, or water [employer] threatened to shut off services in your [...] week 06/02/2023 How often do you attend [facility] or evangelical services? 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 Gender Identity Not on file Sexual Orientation Not on file documented as of this encounter Last Filed Vital Signs Vital Sign Reading [...] Mass Index 33.53 2024 6:00 AM CDT documented in this encounter Discharge Summaries * She Muhammad MD - 06/26/2024 9:39 AM CDT Inpatient Discharge Summary BRIEF OVERVIEW Admitting Provider: Kvng Mendenhall MD Discharge Provider: Braeden Alcantar MD Primary Care Physician at Discharge: Yancy Guerrero MD [phone] Admission Date: 06/20/2024 Discharge Date: 06/26/2024 Admission Location: [facility] Problems/Diagnoses: Principal Problem: Sepsis without acute organ dysfunction, due to unspecified organism (HCC) Active Problems: Kidney stone Pyelonephritis of right kidney Resolved Problems: No resolved hospital problems. Debility, reduced mobility. Per PT or OT. DETAILS OF HOSPITAL STAY Presenting Problem/History of Present Illness: Camille is an 63 y.o. female with PMHx afib on xarelto, HTN,HLD who presented with hypotension, reported fevers, and mild confusion.Reportedly had UTI symptoms 1 week ago (unconfirmed UTI, no UA/UCx obtained at the time), which she took azo for and her symptoms resolved. Then she reported 4 days ago, her dysuria returned and she started feeling sick and slept for 3 days . She was brought to the ED by her daughter, and transferred from OSH, currently requiring 4 L of fluids. OSH CT scan showed a 8mm R ureteral stone, without hydronephrosis bilaterally Denies chills, nausea, vomiting. Denies hematuria, dysuria, and uncontrolled pain. She currently reports no pain at all, including flank pain. Denies any prior nephrolithiasis, and has never required stone surgery in the past. Hospital Course: Camille Shultz presented from OSH with 8 mm R ureteral stone. She underwent a R ureteral stent placement on 06/21/24 by Julius Haywood MD, The hospital course is as follows: 06/20: patient was admitted from the ED. Planned for OR the next day. 06/21: Patient was febrile to 101.5 F. Tachycardic, presenting with rigors. She had increased oxygen requirements as well (O2 sat 89-90 on 2L NC increased to 4L). WBC 7.7, Lactate 0.8. Patient was taken to the operating room for right stent placement. Please refer to the operative note for further details. She became hypotensive immediately postop requiring pressors. Patient was admitted to the SICU intubated/sedated. 06/21: She was extubated overnight and taken off of pressors. 06/22: Patient was bradycardic to the 30s in SICU. Cardiology was consulted due to bradycardia and history of vagal events + afib. ECHO was ordered. Antibiotics were discontinued. 06/23: Patient transferred back to the floor. OSH blood culture was positive for GNB, patient was started back on cefepime. 06/24: OSH blood culture results came back as ecoli resistant to ceftriaxone and cefepime. Cultures were susceptible to unasyn. ID was consulted regarding the positive blood cultures. Patient was transitioned to ertapenem for 10 days (end date 06/30) per ID recommendations. Cards recommended startingback on metoprolol 12.5mg for afib. ECHO was done and resulted with LVEF of 55-60%. Normal L and R ventricular size. Martins was removed and and pt voided without difficulty. 06/25: PICC line was placed for home infusion. 06/26: [facility] home infusion approved. Pain controlled with multimodal agents. Tolerating a regular dietwell. Ambulating at baseline. Pain controlled on oral agents. The patient was deemed to be medically stable for discharge from the hospital on 06/26/24 and was in agreement with the plan to discharge home. Urine culture sent during hospitalization, results are growing ecoli. The patient will followup in 2-3 weeks for definitive stone treatment. The urology office will call the patient to schedule the procedure. Strict return precautions were provided and good understanding was confirmed. Active Issues Requiring Follow-up: Definitive stone treatment Test Results Pending at Discharge: Operative Procedures Performed: Procedure(s): CYSTOSCOPY PLACEMENT URETERAL STENT PYELOGRAM - RETROGRADE Other Procedures: Pertinent Test Results: Discharge Details Physical Exam at Discharge: Discharge Condition: good Pulse: 61 Resp: 16 BP: 148/87 Temp: 36.6 Â°C (97.9 Â°F) Weight: 91.4 kg (201 lb 8 oz) Pertinent Exam Findings at Discharge: PHYSICAL EXAMINATION: VITAL SIGNS: Weight - 91.4 kg (201 lb 8 oz) pounds, Blood pressure - 148/87, Heart rate - 61 bpm, Temperature - 36.6 Â°C (97.9 Â°F) (Oral) Â°F. GENERAL: Alert and oriented x 3 in no apparent distress. HEENT: PERRLA, EOMI. CHEST: Effort normal No respiratory distress. HEART: Regular rate and rhythm. ABDOMEN: Soft, nontender, nondistended No rebound or guarding. EXTREMITIES: Warm and well perfused. SKIN: Skin is warm and dry. Discharge Disposition: Patient will be discharged to:home with home health Code Status at Discharge: full Discharge Instructions: See AVS Other Instructions Ambulatory referral to Home Health Service Line: Home Health and Infusion Primary disciplines requested: [facility]: IV Catheter Maintenance IV Catheter Types: PICC Line Number of Lumens: 1 IV Catheter Flush Care Instructions: Evaluate and manage the IV catheter to maintain patency IV Catheter Dressing Change Instructions: Evaluate, manage, and change the dressing weekly Infusion Services: IV Catheter Maintenance (Infusion) Infusion Therapy Infusion Therapy: Antibiotic Therapy How many antibiotic therapies: 1 ABX Medication 1: ertapenem ABX Dose 1: 1g ABX Route 1: IV ABX Frequency 1: every 24 hours ABX Therapy Duration 1: 10 days Physician to follow patient's care (the person listed here will be responsible for signing ongoing orders): PCP Requested Start of Care Date: 24-48 hours I certify that, based on my findings, the following services are medically necessary skilled home health services: IV Catheter Maintenance I certify that, based on my findings, the following services are medically necessary skilled home infusion services: IV Catheter Maintenance (Infusion) I attest that I or another qualified licensed provider saw the patient 90 days prior to or 30 days post admission and this face to face encounter meets the necessary Home Health requirements. The face to face encounter occurred on (date): 06/24/2024 The encounter with the patient was in whole, or in part, for the following medical condition, whichis the primary reason for home health care. (List medical condition): positive blood cultures with pyleonephritis Clinical findings that support the need for home care: Medical condition requiring skilled assessment/education I certify that my clinical findings support patient's homebound status. Homebound criteria met because: Other Comment: infusion Compiled List of Chemical Dependency Resources: [facility]/Surrounding Areas: General Counseling Agencies: [facility] is able to provide free counseling services to those unable to pay and charges $10-$15 for those who are willing/able to pay. [address] [address]) - Hours: 8:00am-8:00pm Monday through Monday, 9:00am-3:00pm Monday [facility] [place] [address] [place] [address]) (www.[facility] H[facility]ITAL[facility].Xpresso) Hours: 8:00am-5:00pm Monday through Monday [facility] ([facility]) - Warren De Eboni - [facility] ([facility]) - [facility] [place] - [facility] - [facility] - [facility] - [facility] ([facility]) - AWARE (women/domestic violence) - [place] (men/domestic violence) - Care and Counseling - Psych Care Counseling - , option 2 [facility] - Congregational Services - Gnosticism Charities - [facility] Family Services - Detox programs (Medicaid) [facility] [address] [place] [address] Hospital-based, uvmpe-bt-zwrj-day acute withdrawal management, provided at [facility], for adults who are in impending or the early stage of withdrawal from alcohol and/or opioids. For information on how to be admitted and/or to determine bed availability, call the [facility] nurse behavioral health care at [phone]. Medical Detox Stabilization at [facility] [address] [place] [address] M-F 9a-4pm Call to determine availability/eligibility Preferred [facility] [address] [facility] [address] M-F arrive by 8am for walk-in; no guarantee of available bed Inpatient Programs (Medicaid) [facility] - WOMEN ONLY Address: [address] [place] [address] [address]102 Website: [email or web address]/contact Program details: 21-60 day residential treatment, outpatient treatment, halfway plus care to offer housing vouchers, health services and care for children. Day care may be provided for outpatient treatment participants if child is under 5 years old. Information: Intakes are M-F from 9-3, except holidays. You do not need to make an appointment. Women; & Women; CSTAR (Comprehensive Substance Abuse Treatment and Rehabilitation Program) Hours: 8:00am-3:00pm Monday through Monday [facility] - MEN ONLY Address: [address] [place] [address] Hours: 8:00am-6:00pm Monday through Monday [facility] Address: [address] [place] [address] Program details: Offers short term residential treatment, family education, therapy and support, case management services to address housing, medical, employment and other needs, and offers outpatient relapse prevention services. Information: If you are in the hospital, ask your nephrology social worker to complete and fax referral. Otherwise, contact their number to complete assessment. 3-day detox, Up to 30-day inpatient program - 's, Men's & Women's Programs MAT treatment (not Methadone) Hours: 9:00am-5:00pm Monday, Monday and , 10:00am-6:00pm Monday, Monday and Monday [facility] Address: [address] [place] [address]; Program details: 7 day detox, 4 week residential program, outpatient services (4 groups/day for 5 days a week) (3 groups a day for up to 5 days/week), MAT. Only patients under 21 are eligible for their inpatient program. Copayment for residential substance use treatment is $350 up front for two weeks residential treatment, $700 for four weeks. Instructions: Walk in through ED to get assessment, same day admissions. Hours: 05/09 [facility] Address: [address] [place] [address]. [place], [place] Program details: Residential Substance abuse treatment for LGBTQ+. Walk-in or call for availability Information: Residential Substance abuse treatment for LGBTQ+ [facility]) Address: [address] [place] [address] & [address] [place] [address] Program details: Programs in 4 states and offers detox, outpatient, and residential treatment. Theyalso offer preventative services for families in [place] and [place]. Information: If you are in the hospital and wish for a referral, ask your nephrology social worker to completea referral. Otherwise, contact their number to complete assessment. Adult residential, 18 and olderMAT Treatment program, day care on-site. Inpatient Programs (Private Insurance) [facility], various locations; no Medicaid/Medicaid Website: https://www.[employer].Xpresso/ Program details: Various locations that offer detox, residential, partial hospitalization, intensive outpatient, outpatient, virtual, and aftercare programs [facility] Information: 8 treatment facilities Program details: Offers various locations that can be inpatient from 5-90 days. Detox 5-7 days, andinpatient/residential programs that are between 30-90 days. offer a full continuum of care with Detox, Residential, Partial Hospitalization, Intensive Outpatient, Outpatient, and Telehealth. Includesa and couple/family specific programs. Admissions can assist with determining the right level of care. [facility] Information: Detox to after care, 24 hour admissions and 7 day programming and family resources. [place], [place] Website: [facility] annistonSociagram.com Program details: Detox (5-7 days), residential, intensive outpatient, and family wellness program. [facility] Address: [address]. [place], [place] Information: 28 day residential program Program details: Offers detox, partial hospitalization, outpatient, transitional housing, and continuum of care. [facility] Address: [facility] [address], [place] [address] ; Website: FathomDB Program details: detox, intensive outpatient, outpatient, partial hospitalization, virtual, mental health, medication assisted treatment, sober/transitional housing, and family counseling. Website: FathomDB Outpatient Only [facility] (dual-diagnosis): [facility] - Medication-Assisted Treatment (MAT) (case management, Suboxone and Vivitrol without insurance): [facility] (residential assistance): [phone] [facility]: [facility]: [facility]: [facility]: [facility]): [facility]: ([phone] for Suboxone program) [facility] ([facility]) [address] [facility]. [place],?[place]?[address] Primary care, dental care, mental health care, substance use counseling [facility] [email or web address]://[email or web address] lt[facility] [email or web address]/ [facility] [address] [facility] [address] [place] [address] Detox and outpatient treatment [facility] [address] [place] [address] Detox and outpatient treatment [employer]. www.[email or web address].org [address] [place] [address] Adult C-STAR - comprehensive substance use treatment and rehabilitation program [employer] www.[employer] Bk@[place] [employer].Xpresso 12-step principled group counseling to support specific to traumas faced in [facility] www.pine prairiefoundation.org [address] [place] [address] Outpatient treatment [facility] www.[email or web address] [address] [place] [address] Sliding scale fee [facility] [address] [place] [address] Walk-In through [facility] located at above address Monday through Monday: 9am-11am & 1pm-3pm 12 step groups for women on M, W, F from 9am-12pm 12 step groups for men on M, W 9am-12pm [facility] [address] [place] [address] Detox, C-STAR, 's and men's programs [facility] www.[email or web address] [address] [place] [address] Din[facility] [place] Program Website: https://www.Admittedly.net/practice/izolx-prbwginpx-bptfsyrrix-iuykogells-cydusw-knva wood/ [address] [facility] [place] [address] Program Details: Outpatient treatment and aftercare, medication management, codependency counseling, group therapy. [facility] Website: https://www.[facility].org/Medical-Services/Xnwctk-Hmoeom-Vgwvajtbp-Treat ment/Treatment-Programs [address] [place] [address] Program details: Intensive outpatient treatment including psycho education and group therapy. For intake, call [phone]. [facility] Medical Stabilization [facility] [address] [place] [address] Program details: Non-residential; medical stability MAT- Suboxone, Vivitrol, Subutex [facility] (offers detox, residential, virtual intensive outpatient for veterans only) Hernando Crawley (detox) [address] [place] [address] Carlos Eduardo Salas (residential) [address] [place] [address] Contact correspondence specialist Jomar at [phone] to determine service connection, what your benefits cover, & what services might be available to you Methadone Clinics [facility] [address] [place] [address] Hours: 5:00am-3:00pm Monday through Monday, Closed Monday and Monday. [address] [facility] [address] [place] [address] [place] [employer] [address] [place] [address] [facility] (Veterans only) [facility] [place] [address] [facility]. Sober Living/Recovery Houses- it is important to note that Sober Living Houses typically require private payment & insurance does not often cover these services. Feel free to contact any house/location to determine their specific requirements. [facility] [address] [place] [address] Contact Darci Rob at [phone] to determine availability/if their services can meet your needs. [facility] is a 12-step based home, with expectations of shared chores/attending meetings, etc. [facility] requires a $340 security deposit & $175 weekly rent. [facility] [address] [place] [address] Men & women [facility] [phone] www.[facility] behavioral health servicesEachNet Esperanza [place] is an affordable sober community for women wanting to pursue recovery in a supportive living environment. Thu [place] [phone] A supportive environment in which people recovering from drug and/or alcohol addiction can learn tolive responsibly through sponsorship and the principles of recovery. A resident at each house is responsible for collecting rent and making deposits. Minimum requirement: 30 days clean and sober [facility] [phone] [facility] [phone] For males only with at least ten days of sobriety from alcohol & all non- prescribed drugs and/or coming from residential treatment. Must be able to pay rent and processing fee. [facility] program provides safe substance free living for people recovering from alcoholism and/or other drug dependence. Rent varies by house and is paid on weekly, biweekly or monthly basis.The following is the general online link as well as a list of local [facility] in the [facility]. Contact any house individually to determine availability. www.RECCY.org [place] - Men [address] [place] [address] [place] - Men [address] [place] [address] Naveed - Men [address] [place] [address] Viry Brilliante - Men [address] [place] [address] [place] - Men [address] [place] [address] [place] - Men 3542 [place] [address] [place] - Men 2017 [place] [address] [place] - Men 7127 [place] [address] [place] - Women 3633 [place] [address] [facility] - Men 3655 [place] [address] [place] - Women 2715 [place] [address] [place] - Men 8741 [place] [address] [place] - Men 720 [place] [address] [facility] Inpatient Programs (Medicaid) [employer], [employer]. Address: [address] [place] [address] Program details: residential and outpatient. Offers supportive services, case management, vocational support, group/individual counseling. Information: Must call to complete intake. [facility] Address: [address] [place] [address] ext. [phone] Program details: brief interventions available for 4-8 weeks, co-occurring mental health services, outpatient treatment (MAT, Individual, family and co- dependent counseling, group counseling, group education, peer support, person- centered integrated care), and residential treatment. Instructions: You may call the intake line with the hospital nephrology social worker or after you discharge. Walk-ins accepted with proof of identity (i.e. drivers license) and proof of residence. [facility] Address: [address] [place] [address] Program details: Residential treatment, detox, SATOP, crisis stabilization, and outpatient treatment Information: Accepting [place] residents. Complete an intake by calling the line. [facility] Address: [address], [place] [address] Website: Med.ly Program details: Detox, residential, intensive outpatient, outpatient, MAT, family care, and Care. Does NOT take Medicaid. Outpatient Only: [place] [address] [place] [address]; Instructions: Call to schedule an intake appointment. [facility] Intensive [facility] Program [address] [place] [address] [place] [address] Program details: Adolescent & adult outpatient treatment and group therapy for anxiety, depression, non-suicidal behaviors, and co-occurring substance use. [facility]: Inpatient Programs (Medicaid) [facility] [place] (MALE ONLY) [place] (MALE ONLY) Address: [address] [place] [address] Ysabel Hay (FEMALE ONLY) Address: [address], [place] [address] Website: [email or web address] Program details: Residential treatment services, peer support, MAT, CSTAR. Instructions: Call to complete their assessment. [facility] Address: [address] [place] [address] - Has other locations Program details: Outpatient and residential treatment, transitional housing Information: Must call to complete intake and be placed on waiting list [facility] Address: [address] [place] [address] Program details: Residential treatment, outpatient treatment, support groups/counseling interventions Information: There is an online application that needs to be submitted. If you are in the hospital,ask your nephrology social worker to complete this. Otherwise, contact their number to complete assessment. [place]: Inpatient Programs (Medicaid) [facility] Address: [address] [place] [address] (multiple locations) Program details: Detox, outpatient, residential, counseling services, SATOP [facility] Address: [address] [facility], in [place], [place] Program details: Women and Children. Women 18 years of age and older along with their children can receive residential, transitional, and/ or Outpatient services through the facility. Individuals areassessed and a treatment program designed to meet their needs. [facility] Address: [address] [facility] in [place], [place]. Program details: social detoxification, level I residential treatment, level I day treatment, intensive outpatient treatment and outpatient supported recovery treatment services and The Substance Awareness Traffic Offender Program (SATOP). Inpatient Programs (Private Insurance) [facility] (Men only) Address: [address] [place] [address] Website: www.Crystal IS Program details: long-term, residential, samira-based program that ministers to men with drug, alcohol and other addictions, as well as life controlling issues. We are part of a worldwide network of ministries which include about 200 centers around the world. We typically have between 130-140 students or more who are with us for 10 months at a time, completing upwards of 330 men per year. [facility]'s program consists of three main parts: spiritual, academic and vocational. Instructions: Complete the online application available at https://Crystal IS/application/ or call the main line. [facility]: Inpatient Programs (Medicaid) [facility] Adress: [address] [place] [address] Program Detail: Detox, partial hospitalization, intensive outpatient, individual counseling, familysupport, MAT, and continuing care. This facility is in the [facility] Network, offering additional resources and options for treatment if not available at this location. [facility] Address: [address] [place] [address] [place] [facility] Address: [address] [place] [address] [place] Social Setting Detox location (open 05/09): [facility], [address] [place] [address] Program Details: Outpatient, residential, social setting detox, co-occurring disorder support, and individual counseling [facility] ([facility]) Address: [address] [place] [address] Program details: Programs in [facility] and offers detox, outpatient, and residential treatment. Theyals offer preventative services for families in [place] and [place]. Information: If you are in the hospital and wish for a referral, ask your nephrology social worker to completea referral. Otherwise, contact their number to complete assessment. Adult residential, 18 and olderMAT Treatment program, day care on-site. Inpatient Programs (Private Insurance) [facility] Address: [address] [place] [address] [place] [address] & [address], [place] [address] Website: www.La Ruche qui dit Ouiusa.org Program details: Samira based residential housing. Offers GED and transportation. Two women's housesand two men's houses. $360 deposit due at beginning of treatment. After the first week, there is a weekly program fee of $160. Instructions: Complete the application form available on their website. If you wish to compelte this while inpatient, request your nephrology social worker to provide a hard copy. Applications completed while in the hospital may be faxed to [facility] by your nephrology social worker. [facility] Address: [address] [place] [address] Residential Address: [address] [place], [place] www.AmpIdea Program details: detox, inpatient, and residential treatment [facility] - Men's only Address: [address] [place] [address] Website: [email or web address] Program details: Inpatient treatment, 12-step model, MAT, trauma support services, family therapy. Usually 30-90 day stay Instructions: Call the phone number for an intake or complete the online form. Outpatient Only [facility] ([facility]) Program details: Dual diagnosis, Residential, CSTAR, outpatient MAT treatment- Suboxone, Vivtrol, management/education, parenting education. Accepts Medicaid. [place] Address & Phone: [address], [place] [address]. Phone: ; [phone] [place] Address & Phone: [address] [place] [address], [place] Address & Phone: [address] [place] [address], Out of State/[place] Options: [facility] Address: Serves 7 states ([place], [place], [place], [place], [place], [place], [place]). JASON Mackay [address] [place], [place] [address] Program details: Subacute medical detox, 24-hour nursing care, Individual and group counseling, Medication-assisted treatment (MAT), Milieu therapy, Family Care, Undercar Specialist services, 12-step recovery program, Intensive Outpatient Therapy (IOP) (MWF, 6-9PM, six week program), Family Care, Assessments,Continuing care, Group Therapy, one hour per week, [facility] Program details: They can refer you to various inpatient programs, including those out of state. They also provide opportunities for flight school in addition to chemical dependency support. Information: Call and complete assessment. They will refer you to other programs that have availability [facility] [phone]; [phone]) Various locations in [facility] [phone]; [phone] Various locations [facility] [phone] [facility] pul[facility] [address] [place] [address] [facility] [address] [place] [address] Â· [facility] (accepts [place] Medicaid for residential substance abuse treatment) [facility] [address] [place] [address] [facility]- [phone] [address] [place] [address] [facility] Outpatient- [phone]; [address] [address] Online Resources: Due to the need for social distancing to reduce the spread of COVID-19, many people are unable to attend in-person support group meetings. ?For those in recovery, continuing to stay connected to social support groups can be very important. ?Below are resources to connect to online support communities. ?Social distancing does not mean social isolation. ? ? 12Steps.org (https://d.TeliAppstep.org/shc-mfv-udjb/) - Listing of online 12-step meetings (for all different topics) on various platforms Al-Anon Electronic Meetings (al-anon.org/nq-akua-khgrhwmj/electronic-meetings) - Forum and recoverychat room for loved ones that features voice chat, Skype, and text chat meetings connecting people from around the world who have experienced addiction from a loved one Adult Children of Alcoholics (adultchildren.org/quick- search/?audiobt=Click+Here) - Phone and online meetings Alcoholics Anonymous (https://aastl.org/meetings/) - This link will direct to you current AA meetings occurring in the [facility] area, including virtual/online options. Partnership to End Addiction (https://drugfree.org/bplbpojx-brrtmckj-pkgbgj/) Online support community for parents and caregivers Families Anonymous Virtual Meetings (https://Switchfly.org/meetings/meeting-directories/) -Online meetings for parents, grandparents, siblings, spouses, significant others, and other family members and friends of those with a current, suspected, or former drug problem. In the Rooms - [facility] Recovery Community (https://www.Power2SME/livemeetings/list) - 130 weekly online meetings (12- step, non-12-step, wellness, mental health) Life Ring Recovery (lifering.org/online-meetings) -?Listing of online meetings My Recovery (OpenAgent.com.au/online-meeting) -?Online 12-step meetings Narcotics Anonymous (na.org/meetingsearch) - Many online NA meetings Refuge Recovery Online Meetings (https://refugerecoverymeetings.org/meetings?tsml-day=any) - Listing of daily online meetings SMART Recovery (https://meetings.smartrecLailaihuiy.org/meetings/) - Forums, tools, and discussions across many topics, including -specific (non 12-step) SAMHSA Virtual Recovery Resources (https://www.samhsa.gov/find-support) - Resources that can be used to virtually support recovery from mental and/or substance use disorders--also provides resources to help local recovery programs create virtual meetings WEconnect and OneAssist Consumer Solutions Recovery (Vanna's Vanity/memw-genlic-qtncaqw-meetings) -Four daily all-recovery meetings worldwide, open-format and available to anyone in or seeking recovery Hotlines: Alcoholics Anonymous www.aastl.org [address] [place] [address] [facility] AA: [phone] [facility] AA: [phone] Behavioral Health Response www.rstl.org Confidential telephone counseling for mental health crises. Behavioral Health Response (BHR) is a professionally staffed crisis response service. R provides expert behavioral health, crisis response, and outreach services, 24 hours a day, seven days a week to agencies and companies worldwide. Cocaine Anonymous www.Autonomic Technologies.Lendsquare KUTO (Kids Under Twenty-One) Crisis Helpline - 2-257-313-MECHELLE (2618), youth- staffed every day czkhh3mj SUPERVISOR INSPECTION ROOM The DEEDEETO Crisis Helpline is a confidential telephone hotline available to any youth who may be in need of assistance, referral information or crisis services. The PartyWithMeTO Helpline is one of a handful of[facility] staffed exclusively by youth volunteers. Life Crisis Services - 871-624-XXSE (7028) Life Crisis Services is one of the nation's oldest suicide prevention and crisis hotlines. LCS operates 24 hours a day, 7 days a week, 365 days a year. Narcotics Anonymous www.showmerQuadro Dynamicsna.org [facility] NA: 430.341.9744 National Roby on Mental Illness ([facility]) - 822.393.4664 National Bellamy on Alcoholism and Drug Abuse www.ncada-stl.org Al-anon (support for loved ones): 636.273.6874 Recovering Couples Anon: National Suicide Prevention Hotline - 2-829-223-TALK (0326) A free, 24-hour hotline available to anyone in suicidal crisis or emotional distress. Your call will be routed to the nearest crisis center to you. National Hopeline Network - 6-449-WLQHTGP NON-12-Step Support Groups: Self-Management and Recovery Training (SMART; evidence-based therapies): 851.650.3188 and online (www.KloudCatch.org) Recovery Speedy (Shawn & mindfulness focus): Online (www.KloudCatch.org) Substance Abuse and Mental Health Services Administration ([facility]) www.[facility].gov/ 05/09 Treatment referral Helpline: (385) 222-FMTO (3158) [place] substance use treatment facility adoption counselor: http://findtreatment.[facility]era.gov/ [facility] [address] [place] [address] Recovery services, daily AA/NA meetings, free classes, peer specialists, referrals, assistance withdisability, housing and other needs Teen Counseling Hotline - 619-276-ZHVT (0870) Discharge Medications: Current Medications TAKE these medications acetaminophen 500 mg capsule Take 2 capsules (1,000 mg total) by mouth every 6 (six) hours as needed for fever amLODIPine 5 mg tablet Take 1 tablet (5 mg total) by mouth daily Commonly known as: NORVASC atorvastatin 80 mg tablet Take 1 tablet (80 mg total) by mouth nightly For: excessive fat in the blood Commonly known as: LIPITOR citalopram 10 mg tablet Take 4 tablets (40 mg total) by mouth every morning For: anxiousness associated with depression Commonly known as: CeleXA docusate sodium 100 mg capsule Take 1 capsule (100 mg total) by mouth 2 (two) times a day with a glass of water For: constipation Commonly known as: COLACE ertapenem 1 gram injection Infuse 10 mL (1,000 mg total) IV daily for 5 minutes for 4 days at 120 mL/hr Commonly known as: INVanz folic acid 1 mg tablet Take 1 tablet (1 mg total) by mouth daily Commonly known as: FOLVITE LORazepam 0.5 mg tablet Take 1 tablet (0.5 mg total) by mouth 2 (two) times a day For: anxious Commonly known as: ATIVAN losartan 25 mg tablet Take 4 tablets (100 mg total) by mouth nightly Commonly known as: COZAAR metoprolol XL 25 mg extended release tablet Take 0.5 tablets (12.5 mg total) by mouth daily Commonly known as: TOPROL-XL Start taking on: June 27, 2024 oxyCODONE 5 mg immediate release tablet Take 1 tablet (5 mg total) by mouth every 4 (four) hours as needed for pain For: pain Commonly known as: ROXICODONE polyethylene glycol 17 gram/dose bulk powder Take 17 g by mouth daily Commonly known as: MIRALAX rivaroxaban 20 mg tablet Take 1 tablet (20 mg total) by mouth daily with dinner For: atrial fibrillation Commonly known as: XARELTO traZODone 100 mg tablet Take 1 tablet (100 mg total) by mouth nightly Commonly known as: DESYREL Outpatient Follow-Up: Future Appointments Date Time Provider Department Center 07/16/2024 10:00 AM Emely Mora, WINDOW DRAPER ID TABEX [address] Inf Dis Contact Information for Follow-ups [facility] (All Locations) Next Steps: Follow up Questions: Please select the performing region: [facility] (All Locations) # of visits: 1 Referral Status: Pending Authorization [facility] Home Care Services Specialty: Home Health and Hospice [address] [place] [phone] Next Steps: Follow up Questions: Service Line: Home Health and Infusion Primary disciplines requested: Retirement Home Health Services: IV Catheter Maintenance IV Catheter Types: PICC Line Number of Lumens: 1 IV Catheter Flush Care Instructions: Evaluate and manage the IV catheter to maintain patency IV Catheter Dressing Change Instructions: Evaluate, manage, and change the dressing weekly Infusion Services: IV Catheter Maintenance (Infusion) Infusion Therapy Infusion Therapy: Antibiotic Therapy How many antibiotic therapies: 1 ABX Medication 1: ertapenem ABX Dose 1: 1g ABX Route 1: IV ABX Frequency 1: every 24 hours ABX Therapy Duration 1: 10 days Physician to follow patient's care (the person listed here will be responsible for signing ongoing orders): PCP Requested Start of Care Date: 24-48 hours I certify that, based on my findings, the following services are medically necessary skilled home health services: IV Catheter Maintenance I certify that, based on my findings, the following services are medically necessary skilled home infusion services: IV Catheter Maintenance (Infusion) I attest that I or another qualified licensed provider saw the patient 90 days prior to or 30 days post admission and this face to face encounter meets the necessary Home Health requirements. The face to face encounter occurred on (date): 06/24/2024 The encounter with the patient was in whole, or in part, for the following medical condition, whichis the primary reason for home health care. (List medical condition): positive blood cultures with pyleonephritis Clinical findings that support the need for home care: Medical condition requiring skilled assessment/education I certify that my clinical findings support patient's homebound status. Homebound criteria met because: Other Comment: infusion Referral Status: Pending Authorization Cosigned by Angélica Key MD at 06/26/2024 6:02 PM CDT Associated attestation - Angélica Key MD - 06/26/2024 6:02 PM CDT I have seen and examined the patient on 06/26/24. I agree with the findings and plan of care as documented in the resident's/fellow's note. Home with ertapenem. Angélica Key MD documented in this encounter Discharge Instructions * Discharge Instructions* She Muhammad MD - 2024 9:23 AM CDT Images from the original note were not included. DISCHARGE INSTRUCTIONS FOR URETERAL STENT PLACEMENT General Postsurgical Instructions: You may feel mildly dizzy, weak, and drowsy for as long as 24 hours after receiving anesthesia. This can be expected. If you've had manipulation of your urinary tract (kidney, ureter, bladder, prostate, or urethra), some blood in the urine is expected and should improve over the next few days. DO NOT (for the first 24 hours after surgery or while on narcotic pain medicines): DO NOT drive a car, ride a bicycle, or take public transportation. DO NOT participate in physical activities, operate machinery, or make legal decisions. DO NOT drink alcohol or take tranquilizers. DO NOT sign important papers or make important decisions. Activity: DO NOT lift more than 10 pounds (4.5 kilograms) or perform activities like pushing and pulling for 4 weeks. DO NOT engage in activities that may risk injury to your surgical site. Remember heavy strenuous lifting may cause some blood in your urine, this should stop within 24 hours. Call if you see clots in your urine or are unable to urinate DO NOT drive or operate machinery if you are taking narcotic pain medicine. You may take showers or baths. Wound Care: Apply ice packs on incision to relieve discomfort and pain as needed. DO NOT change bandages/dressings for 1 day. Wash hands well before changing your bandage. DO NOT take bath, swimming or submerge your surgical site under water for 2 weeks. May shower 1 day after surgery. Remove your bandages during or just before shower. Cleanse your incision thoroughly but gently with mild soap and water. Pat dry with a clean, dry cloth. Keep your incision clean and dry. No additional bandages are needed on your incision after 3 days unless you are having drainage or for comfort. You have quick dry glue applied as dressing, it will flake-off usually in 7-10 days. DO NOT smoke. It impairs wound healing and is overall bad for your health. You had a ureteral stent placed today during your procedure. It is NOT permanent. It must be removed or exchanged within 3 months. Medications: You may take hxqo-gbc-cuygznv stool softener to prevent constipation. Take all medications as directed. Please see discharge medication reconciliation form for specific instructions regarding blood-thinning medications [e.g., aspirin, warfarin (Coumadin), clopidogrel (Plavix)] if applicable. Sometimes ureteral stents may cause your bladder to spasm, this may feel painful, or like a constant urge to urinate or you may leak urine. You will be sent home with a medications to help prevent bladder spasms in case any of these symptoms develop. Diet: Resume your diet prior to surgery. Seek immediate medical care or contact your caregiver if: You experience a severe headache, persistent dizziness, light-headedness, or visual disturbances. Your surgical site pain is unrelieved by medications. Your incision opens, separates, drains pus or foul smelling discharge, or excessively bleeds. There is redness, swelling, worsening pain, or signs of infection around your surgical site. You have a fever of 101Â° F (38.5Â° C) or above. You experience persistent numbness, tingling, weakness. You experience a rash, hives, or other allergic reaction. You experience difficulty breathing. You develop a cough with sputum production. You experience chest pain. You experience persistent nausea or vomiting. You are unnable to tolerate food or drink. You experience severe constipation that is not relieved by adjusting diet or increasing fluid intake. In an emergency, call 911 or go to an Emergency Department at a nearby hospital. It is important to bring a complete, current list of your medications to any medical appointments or hospitalizations. Make sure you understand these instructions and that you will get help right away if you are not doing well or your condition worsens. Please follow up in 2-3 weeks for stone treatment. The urology office will call you to schedule your appointment. If you do not hear from them in 2-3 business days, please call to schedule your appointm [id number]|2024-06-27 10:30:00|2024-06-27 10:29:00|XMS_ITS|GISELLE DHILLONJACQUELYN|External Medical Summaries|[id number]|" Encounter Summary Created on: June 27, 2024 Camille Shultz : 1960 Sex: Female Author Organization [facility] Address Community [facility] [place] [address] Care Team Providers Care Advisory Application Developer Name Role Phone Yancy Guerrero MD Primary Care Provider [phone] Encounter Details Date Type Department Care Team (Late st Contact Info) Description 06/26/2024 Scan [facility] Home Care/Hospice [facility] [address] [facility] [address] [place] [id number] Scanned, [facility] Social History Tobacco Use Types Packs/Day Years Used Date Smoking Tobacco: Never Assessed Comments Unknown Sex and Gender Information Value Date Recorded Sex Assigned at Female 06/26/2024 10:06 AM CDT Legal Sex Female 6:43 PM CDT Gender Identity Female 06/26/2024 10:06 AM CDT Sexual Orientation Not on file documented as of this encounter Plan of Treatment Not on file documented as of this encounter Visit Diagnoses Not on filedocumented in this encounter Care Teams Advisory Application Developer Relationship Specialty Start Date End Date Yancy Guerrero MD [address] [place] [address] PCP - General INTERNAL MEDICINE 06/26/24 documented as of this encounter "
[2024-06-27 10:31] LABS: Basophils Absolute Auto 0.03 K/mm3 (0.00-0.10); Basophils Percent Auto 0.4 % (0.0-1.0); Eosinophils Absolute Auto 0.14 K/mm3 (0.02-0.50); Eosinophils Percent Auto 1.9 % (1.0-6.0); Hematocrit 37.1 % (35.0-49.0); Immature Granulocyte Absolute 0.09 K/mm3 (0.00-0.00); Immature Granulocyte Percent A 1.2 % (0.0-0.0); Lymphocytes Absolute Auto 2.32 K/mm3 (1.10-4.50); Lymphocytes Percent Auto 31.9 % (18.0-42.0); Mean Corpuscular HGB Conc 32.3 g/dL (32-36); Mean Corpuscular Hemoglobin 31.3 pg (27.0-31.0); Mean Corpuscular Volume 96.6 fL (78.0-102.0); Mean Platelet Volume 9.9 fl (9.2-11.8); Monocytes Absolute Auto 0.76 K/mm3 (0.10-0.90); Monocytes Percent Auto 10.5 % (2.0-11.0); Neutrophils Absolute Auto 3.93 K/mm3 (1.70-7.20); Neutrophils Percent Auto 54.1 % (50.0-70.0); Platelet Count Result 478 K/mm3 (150-420); Red Blood Count 3.84 M/mm3 (4.20-5.40); Red Cell Distribution Width 14.5 % (11.6-14.4); White Blood Count 7.3 K/mm3 (4.8-10.8)
--- OUTSIDE RECORDS SUMMARY | 2024-06-27 10:31 | XMS_ITS | Encounter Summary ---
Author Organization [facility] Address [address] [place] [address] Care Team Providers Care Ibm Bpm Architect Name Role Phone Yancy Guerrero MD Primary Care Provider + Encounter Details Date Type Department Care Team (Latest Contact Info) Description 05/02/2003 Outpatient Historical HIS [facility] Tod Cifuentes MD [address] [facility] [address] [place] [address] SCREENING MAMM-MAILG NEOPL-OTHER (Primary Dx) Social History Tobacco Use Types Packs/Day Years Used Date Smoking Tobacco: Never Assessed Comments Unknown Sex and Gender Information Value Date Recorded Sex Assigned at Not on file Legal Sex Female 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
--- OUTSIDE RECORDS SUMMARY | 2024-06-27 10:31 | XMS_ITS | Encounter Summary ---
Author Organization [facility] Address [address] [place] [address] Care Team Providers Care Environmental Monitoring Specialist Name Role Phone Yancy Guerrero MD Primary Care Provider + Encounter Details Date Type Department Care Team (Latest Contact Info) Description 05/26/2005 Outpatient Historical HIS [facility] Tod Cifuentes MD [address] 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
--- OUTSIDE RECORDS SUMMARY | 2024-06-27 10:31 | XMS_ITS | Encounter Summary ---
Author Organization [facility] Address 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
[2024-06-27 10:46] LABS: Alanine Aminotransferase 32 U/L (6-35); Albumin Level 3.7 g/dL (3.5-5.1); Alkaline Phosphatase 70 U/L (38-126); Anion Gap 5 mmol/L (4-12); Aspartate Amino Transferase 47 U/L (14-36); Bilirubin,Total 0.4 mg/dL (0.2-1.3); Blood Urea Nitrogen 11 mg/dL (7-17); Calcium 9.2 mg/dL (8.4-10.2); Carbon Dioxide 32 mmol/L (22-30); Chloride 103 mmol/L (98-107); Estimated Glomerular Filt Rate > 60; Glucose 126 mg/dL (65-110); Osmolality Calculated 291 mOsm/kg (285-295); Sodium 140 mmol/L (137-145); Total Protein 6.9 g/dL (6.3-8.2)
== END 2024-06-27 10:22 | disposition home or self-care (01) ==
LOC: CHSLAB 10:23
PROVIDERS: PCP Internal Medicine; Visit Provider Internal Medicine
DX: A41.9 Sepsis, unspecified organism (principal)
CPT/HCPCS: 36415; 80053; 85025

== ENCOUNTER 2024-07-01 10:03 | Outpatient (NON) | payer OTHER, SELFPAY ==
[2024-07-01 10:11] LABS: Basophils Absolute Auto 0.03 K/mm3 (0.00-0.10); Basophils Percent Auto 0.5 % (0.0-1.0); Eosinophils Absolute Auto 0.07 K/mm3 (0.02-0.50); Eosinophils Percent Auto 1.1 % (1.0-6.0); Hematocrit 40.7 % (35.0-49.0); Hemoglobin 13.3 g/dL (12.0-15.0); Immature Granulocyte Absolute 0.02 K/mm3 (0.00-0.00); Immature Granulocyte Percent A 0.3 % (0.0-0.0); Lymphocytes Absolute Auto 2.04 K/mm3 (1.10-4.50); Lymphocytes Percent Auto 32.5 % (18.0-42.0); Mean Corpuscular HGB Conc 32.7 g/dL (32-36); Mean Corpuscular Hemoglobin 31.2 pg (27.0-31.0); Mean Corpuscular Volume 95.5 fL (78.0-102.0); Mean Platelet Volume 9.4 fl (9.2-11.8); Monocytes Absolute Auto 0.47 K/mm3 (0.10-0.90); Monocytes Percent Auto 7.5 % (2.0-11.0); Neutrophils Absolute Auto 3.65 K/mm3 (1.70-7.20); Neutrophils Percent Auto 58.1 % (50.0-70.0); Platelet Count Result 460 K/mm3 (150-420); Red Blood Count 4.26 M/mm3 (4.20-5.40); White Blood Count 6.3 K/mm3 (4.8-10.8)
--- OUTSIDE RECORDS SUMMARY | 2024-07-01 10:39 | XMS_ITS | Encounter Summary ---
Author Organization [facility] [employer] [facility] Address [address] [place] [address] Phone Care Team Providers Care Lane Attendant Name Role Phone Yancy Guerrero MD Primary Care Provider + [phone] Lupillo Reyes MD Unavailable [phone] Encounter Details Date Type Department Care Team (Latest Contact Info) Description 03/28/2023 Orders Only [facility] Wendy Choudhary, ISAIAS [address] [facility] [address] [place], [place] [id number] Social History Tobacco Use Types Packs/Day Years [...] on file 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
--- OUTSIDE RECORDS SUMMARY | 2024-07-01 10:39 | XMS_ITS | Encounter Summary ---
Author Organization [facility] Address [address] [place] [address] Phone Care Team Providers Care Representative Personal Service Name Role Phone Yancy Guerrero MD Primary Care Provider + [phone] Lupillo Reyes MD Unavailable [phone] Encounter Details Date Type Department Care Team (Late st Contact Info) Description 07/01/2024 Orders Only [facility] Urology [address] [facility] [address] [place] [address] Chelsea Haywood MD [address] [facility] [address] [place], [place] [id number] Urinary tract infection without hematuria, site unspecified (Primary Dx) Social History Tobacco Use Types Packs/Day Years Used Date Smoking Tobacco: Every Day Cigarettes 0.2 2 Smokeless Tobacco: Never Comments:Two packs per week for last 2 years Alcohol Use Standard Drinks/Week Comments Yes 0 (1 standard drink = 0.6 oz pur e alcohol) socially [facility] Utilities Answer Date Recorded In the past 12 months has [employer], gas, oil, or water [employer] threatened to shut off services in your [...] often do you attend chur ch or faith services? More than 4 times per year 06/02/2023 Do you belong to any clubs o r organizations such as scientologist groups, unions, fraternal or athletic groups, or [...] place to sleep or slept in a residential (including now)? No 06/02/2023 Personal Safety Answer Date Recorded Have you ever been in or are you currently in a harmful physical or emotional relationship or is someone making you feel afraid or unsafe? 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 Gender Identity Not on file Sexual Orientation Not on file documented as of this encounter Ordered Prescriptions Prescription Sig Dispense Quantity Refills Last Filled Start Date End Date nitrofurantoin monohydrate (MACROBID) 100 mg capsuleIndications :Urinary tract infection without hematuria, site unspecified Take 1 capsule (100 mg total) by mouth 2 (two) times a day for 5 days 10 capsule 07/01/2024 documented in this encounter Plan of Treatment Not on file documented as of this encounter Visit Diagnoses Diagnosis Urinary tract infection without hematuria, site unspecified- Primary documented in this encounter Additional Health Concerns Infection Onset Date Last Indicated Resolved Time 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
--- OUTSIDE RECORDS SUMMARY | 2024-07-01 10:39 | XMS_ITS | Encounter Summary ---
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
--- OUTSIDE RECORDS SUMMARY | 2024-07-01 10:39 | XMS_ITS | Encounter Summary ---
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
--- OUTSIDE RECORDS SUMMARY | 2024-07-01 10:39 | XMS_ITS | Encounter Summary ---
Author Organization [facility] [employer] 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
--- OUTSIDE RECORDS SUMMARY | 2024-07-01 10:39 | XMS_ITS | Encounter Summary ---
Author Organization [facility] [employer] [facility] Address [address] [place] [address] Phone Care Team Providers Care Matching Machine Operator Name Role Phone Yancy Guerrero MD Primary Care Provider + [phone] Lupillo Reyes MD Unavailable [phone] Encounter Details Date Type Department Care Team (Late st Contact Info) Description 06/28/2024 Results Follow-[facility] ([facility] - [facility] Urology [address] [facility] 11th [place] [address] [place] [address] Chelsea Haywood MD [address] [facility] [address] [place] [address] Urine culture Urine, bladder Social History Tobacco Use Types Packs/Day Years Used Date Smoking Tobacco: Every Day Cigarettes 0.2 2 Smokeless Tobacco: Never Comments:Two packs per week for last 2 years Alcohol Use Standard Drinks/Week Comments Yes 0 (1 standard drink = 0.6 oz pur e alcohol) socially AHC Utilities Answer Date Recorded In the past 12 months has [employer], gas, oil, or water [employer] threatened to shut off services in your [...] often do you attend chur ch or church services? More than 4 times per year 06/02/2023 Do you belong to any clubs o r organizations such as zoroastrianism groups, unions, fraternal or athletic groups, or [...] place to sleep or slept in a long-term (including now)? No 06/02/2023 Personal Safety Answer Date Recorded Have you ever been in or are you currently in a harmful physical or emotional relationship or is someone making you feel afraid or unsafe? 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
--- OUTSIDE RECORDS SUMMARY | 2024-07-01 10:39 | XMS_ITS | Encounter Summary ---
Author Organization [facility] of [facility] Address [address] [place] [address] Phone Care Team Providers Care Lehr Stripper Name Role Phone Yancy Guerrero MD Primary Care Provider + [phone] Lupillo Reyes MD Unavailable [phone] Encounter Details Date Type Department Care Team (Latest Contact Info) Description 04/28/2023 Orders Only [facility] Wendy Choudhary, ISAIAS [address] [facility] [address] [place], [place] [phone] Social History Tobacco Use Types Packs/Day Years [...] file 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
--- OUTSIDE RECORDS SUMMARY | 2024-07-01 10:39 | XMS_ITS | Encounter Summary ---
Author Organization 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
--- OUTSIDE RECORDS SUMMARY | 2024-07-01 10:40 | XMS_ITS | Clinical Summary ---
Author Organization [facility] Address Critical access hospital[address] [place] [address] Care Team Providers Care Insurance Underwriter Name Role Phone Yancy Guerrero MD Primary Care Provider [phone] Encounters Date Type Department Care Team Description 06/26/2024 Scan [facility] Home Care/Hospice [place] Scheduling [address] [place] [address] Scanned, [facility] Hospital from Last 3 Months Social [...] complete this topic Insurance [employer] Care Teams Insurance Underwriter Relationship Specialty Start Date End Date Yancy Guerrero MD [address] [place] [address] PCP - General INTERNAL MEDICINE 06/26/24
--- OUTSIDE RECORDS SUMMARY | 2024-07-01 10:40 | XMS_ITS | Encounter Summary ---
Author Organization [facility] [employer] [facility] Address [address] [place] [address] Phone Care Team Providers Care Hospitality Services Manager Name Role Phone Yancy Guerrero MD Primary Care Provider + [phone] Lupillo Reyes MD Unavailable [phone] Encounter Details Date Type Department Care Team (Latest Contact Info) Description 04/10/2013 Orders Only [facility] Wendy Choudhary RN [address] [facility] [address] [place], [place] [phone] Social History Tobacco Use Types Packs/Day Years Used Date Smoking Tobacco: Never Assessed Comments Unknown Sex and Gender Information Value Date Recorded Sex Assigned at Not on file 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 08/16/2021 08/16/2021 12/14/2021 3:05 AM C DT COVID: Suspected 09/23/2021 09/23/2021 09/23/2021 10:56 PM CDT COVID: Suspected 09/29/2021 09/29/2021 09/29/2021 10:32 PM CDT COVID: Suspected 12/24/2021 12/25/2021 12/25/2021 3:05 AM NOXIOUS WEEDS AND PEST INSPECTOR COVID: Suspected 12/25/2021 12/25/2021 12/26/2021 3:05 AM NOXIOUS WEEDS AND PEST INSPECTOR COVID: Suspected 12/25/2021 12/25/2021 12/26/2021 3:49 PM NOXIOUS WEEDS AND PEST INSPECTOR MDR gram neg/ESBL 2024 2024 documented as of this encounter Care Teams Hospitality Services Manager Relationship Specialty Start Date End Date Yancy Guerrero MD [address] [place] [address] PCP - General 05/22/16 Lupillo Reyes MD [address] [facility] [address] [place] [address] Consulting Physician Orthopedic Surgery 07/26/22 documented as of this encounter
--- OUTSIDE RECORDS SUMMARY | 2024-07-01 10:40 | XMS_ITS | Encounter Summary ---
Author Organization [facility] Address [address] [place] [address] Care Team Providers Care Test And Research Reactor Operator Name Role Phone Yancy Guerrero MD Primary Care Provider + Encounter Details Date Type Department Care Team (Latest Contact Info) Description 03/10/2006 Outpatient Historical HIS [facility] SRIDHAR Velázquez, [place] [address] [facility] [address] [place] [address] Lump or Mass in Breast (Primary Dx) Social History Tobacco Use Types Packs/Day Years Used Date Smoking Tobacco: Never Assessed Comments Unknown Sex and Gender Information Value Date Recorded Sex Assigned at Not on file 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
--- OUTSIDE RECORDS SUMMARY | 2024-07-01 10:40 | XMS_ITS | Patient Health Record ---
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 confirmed Problem Generalized anxiety disorder (94380637) Generalized anxiety disorder (F41.1) Active confirmed Problem Posttraumatic stress disorder (19948554) PTSD (post-traumatic stress disorder) (F43.10) Active confirmed Problem Alcohol abuse (90365789) Alcohol abuse (F10.10) Active confirmed Encounters Encounter Location Date Provider Diagnosis [facility] [address] [place] [address] 01/18/2024 Arcelia Qasim Major depressive disorder, recurrent severe without psychotic features F33.2 ; Generalized anxiety disorder F41.1 and Alcohol abuse F10.10 [facility] [address] [facility] [address] [place] [address] 01/23/2024 Arcelia Tripp Major depressive disorder, recurrent severe without psychotic features F33.2 ; Generalized anxiety disorder F41.1 ; Alcohol abuse F10.10 and PTSD (post-traumatic stress disorder) F43.[address] [facility], Walkin [address] [facility] [address] [place] [address] 02/02/[address] [facility], Walkin [address] [place] [address] 02/28/2024 Arcelia Tripp Major depressive disorder, recurrent severe without psychotic features F33.2 ; Generalized anxiety disorder F41.1 ; Alcohol abuse F10.10 and PTSD (post-traumatic stress disorder) F43.[address] [facility] [address] [facility] [address] [place] [address] 02/13/2024 Arcelia Tripp [facility] [employer] [facility] [address] [facility] [address] [place] [address] 02/26/2024 Arcelia Tripp [facility] [employer] 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 Legal History: DUI, 04/26/22 Family History of MH/RADHAMES: alcohol, anxiety, PTSD, bipolar Physical Medical Conditions: hypertension, afib, elevated lipids Spiritual Beliefs: Latter-Day Suicidal Ideation/Self Harm: Denied Homicidal Ideation: Denied [...] weekly support group meetings, like AA or [employer], to sustain sobriety and develop a support [...] Level of Education: completed college 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 2. Family-related Stress - [...] of local support groups, including [employer] and [employer], for additional support. 2. Family-related Stress - [...] to address underlying issues. Utilize a daily materials planner incorporating affirmations and goals to foster [...] of the potential tear. Consult with an corrosion control specialist for a comprehensive evaluation and to [...] to address underlying issues. Utilize a daily materials planner incorporating affirmations and goals to foster [...] of the potential tear. Consult with an corrosion control specialist for a comprehensive evaluation and to [...] a list of local support groups, including [employer] and [employer], for additional support. 2. Family-related Stress - [...] to address underlying issues. Utilize a daily materials planner incorporating affirmations and goals to foster [...] of the potential tear. 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 2. Family-related Stress - [...] to address underlying issues. Utilize a daily materials planner incorporating affirmations and goals to foster [...] of the potential tear. Consult with an corrosion control specialist for a comprehensive evaluation and to [...] Insured Coverage Start Date Coverage End Date [employer] [id number] [place] [address] [phone] [id number] Camille Hendricks Self - patient is the [...]
--- OUTSIDE RECORDS SUMMARY | 2024-07-01 10:40 | XMS_ITS | Encounter Summary ---
Author Organization [facility] Address [address] [place] [address] Care Team Providers Care Training Consultant Name Role Phone Yancy Guerrero MD Primary Care Provider + [phone] Lupillo Reyes MD Unavailable [phone] Encounter Details Date Type Department Care Team (Late st Contact Info) Description 06/20/2024 Hospital Encounter [facility] ADMIT [address] [place] [address] Social History Tobacco Use Types Packs/Day Years Used Date Smoking Tobacco: Every Day Cigarettes 0.2 2 Smokeless Tobacco: Never Comments:Two packs per week for last 2 years Alcohol Use Standard Drinks/Week Comments Yes 0 (1 standard drink = 0.6 oz pur e alcohol) socially [facility] Utilities Answer Date Recorded In the past 12 months has [employer], gas, oil, or water company threatened to [...] often do you attend chur ch or mosque services? 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
--- OUTSIDE RECORDS SUMMARY | 2024-07-01 10:40 | XMS_ITS | Encounter Summary ---
Author Organization [facility] Address [address] [place] [address] Phone Care Team Providers Care Slurry Man Name Role Phone Yancy Guerrero MD Primary Care Provider + [phone] Lupillo Reyes MD Unavailable [phone] Encounter Details Date Type Department Care Team (Late st Contact Info) Description 06/24/2024 Documentation [facility] Urology [address] [facility] [address] [place] [address] Chelsea Haywood MD [address] [place], [place] [id number] Social History Tobacco Use Types Packs/Day Years Used Date Smoking Tobacco: Every Day Cigarettes 0.2 2 Smokeless Tobacco: Never Comments:Two packs per week for last 2 years Alcohol Use Standard Drinks/Week Comments Yes 0 (1 standard drink = 0.6 oz pur e alcohol) socially [facility] Utilities Answer Date Recorded In the past 12 months has [employer] electric, gas, oil, or water company threatened [...] often do you attend chur ch or scientology services? More than 4 times per year 06/02/2023 Do you belong to any clubs o r organizations such as spiritism groups, unions, fraternal or athletic groups, or [...] place to sleep or slept in a half-way (including now)? No 06/02/2023 Personal Safety Answer Date Recorded Have you ever been in or are you currently in a harmful physical or emotional relationship or is someone making you feel afraid or unsafe? 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 female with pmh anxiety/depression, AF (Xarelto), HTN, HLD transferred from [facility] for higher level of care. Had Right [...] documented as of this encounter Care Teams Slurry Man Relationship Specialty Start Date End Date Yancy Guerrero MD [address] [place] [address] PCP - General 05/22/16 Lupillo Reyes MD [address] [facility] [address] [place] [address] Consulting Physician Orthopedic Surgery 07/26/22 documented as of this encounter
--- OUTSIDE RECORDS SUMMARY | 2024-07-01 10:40 | XMS_ITS | Continuity of Care Document ---
Author Organization [facility] Address [address] [facility] [facility] [address] [place] [address] Phone Care Team Providers Care Housekeeping Assistant Name Role Phone Lupillo Reyes MD Unavailable [...] Date Provider Providers Copied on Encounter [facility], [address], [id number], [place] [phone] [facility] No Information 4 Eric Wesley. [address] [address], [place], [place], [id number] , [place]. tel: [phone] [facility], [address], [id number], [place] tel:[phone] [facility] No Information 4 Eric Wesley. [address], [id number] , [place]. tel: [phone] Office/outpat ient visit,est, [facility], [address], [id number], [place] [phone] Rt Shoulder (chief complaint) Complete rotatr-cuff tear/ruptr of r shoulder, not trauma 4 Eric Wesley. [address], [id number] , [place]. tel: [phone] Office/outpat ient visit,est, [facility], [address], [id number], [place] tel:[phone] Right shoulder (chief complaint) Complete rotatr-cuff tear/ruptr of r shoulder, not trauma 3 Eric Wesley. [address] [facility] [address], [place], [place], [id number] , [place]. tel: [phone] Office/outpat ient visit,est, [facility], [address], [id number], [place] tel:[phone] Follow up (chief complaint) Complete rotatr-cuff tear/ruptr of r shoulder, not trauma 3 Eric Wesley. [address] [facility], [address] [address], [place], [place], [id number] , [place]. tel: [phone] Office/outpat ient visit,est, [facility], [address] [address], [place], [place], [id number], [place] tel:[phone] [facility] Post op check up (chief complaint) Complete rotatr-cuff tear/ruptr of r shoulder, not trauma 3 Eric Wesley. [address] [facility], [address] [address], [place], [place], [id number] , [place]. tel: [phone] [facility], [address] [place] [address], [id number], [place] tel:[phone] [facility] Right shoulder (chief complaint) Complete rotatr-cuff tear/ruptr of r shoulder, not trauma 3 Eric Wesley. [address] [facility], [address] [address], [place], [place], [id number] , [place]. tel: [phone] [facility], [address], [id number], [place] tel:[phone] [facility] Right shoulder (chief complaint) Complete rotatr-cuff tear/ruptr of r shoulder, not trauma 3 Eric Wesley. [address] [facility], [address], [id number] , [place]. tel: [phone] [facility], [address] [place] [address], [id number], [place] tel:[phone] [facility] No Information 3 Eric Wesley. [address] [facility], [address] [address], [place], [place], [id number] , [place]. tel: [phone] [facility], [address] [place] [address], [id number], [place] tel:[phone] [facility] Complete rotatr-cuff tear/ruptr of r shoulder, not trauma 3 Eric Wesley. [address] [facility], [place], [place], [id number] , [place]. tel:[phone] Office consultation, moderate MDM [facility], [address], [place], [place], [id number], [place] tel:[phone] [facility] Right shoulder muscle tear/pain (chief complaint) Complete rotatr-cuff tear/ruptr of r shoulder, not trauma 3 Eric Lupillo. [address] [facility], [address], [place], [place], [id number] , [place]. [phone] Referring Provider: Lupillo Mueller, [address] [facility] [address], [place], [address] . tel:[phone] Family History Family Member Type Diagnosis Age At Onset Father Problem (finding) Hypertension Mother Problem (finding) Hypertension Mother Problem (finding) Diabetes Father Problem (finding) Cancer, unknown Father Problem (finding) Other Immunizations Vaccine Date Status Comments influenza, injectable, quadr ivalent, (3 years or older) administered Source: Other Provid er Pneumo (2 yrs or older)(PPV) administered Source: Other Provider Payers Payer name Insurance type Covered libertarian ID Authoriza tion(s) [facility] Workers Compensation Adm WC [id number] Social History Type Description Quantity Date [...]
--- OUTSIDE RECORDS SUMMARY | 2024-07-01 10:40 | XMS_ITS ---
Author Organization [facility] [employer] [facility] Address [address] [facility] [address] [place] [address] Care Team Providers Care It Programmer Analyst Name Role Phone Cesar ROSARIO, Yancy Primary Care Provider Arcelia Mullins [phone] Social History Sex Assigned At : Social History Observation Description Sex Assigned At Female Encounters Encounter Location Date Provider Diagnosis [facility], Walkin [address] [facility] [address] [place] [address] 03/06/2024 Arcelia Tripp Plan Of Treatment No Information Progress Notes * Camille KOODOB: [birth year] (64 yo F)Acc No.[id number]:03/06/2024 Patient: Anabel BARRCamille CROW Provider: Ami Tripp :1960 A ge:63 Y S ex:Female Date:03/06/2024 Phone: Address:[address] [place], [place] [address] Pcp:Yancy Guerrero MD Data: * Chief Complaints: * Assessment: Plan: * Treatment: * Billing Information: * Visit Code: * Procedure Codes: * Electronic signature of Roman Tripp LCPC on 07/01/2024 at 10:39 AM CDT Sign off status: Pending Signatures: No Ad Hoc Signature Added * Provider: Ami Tripp Date: 03/06/2024 Generated for Veronika tovar/Dipika/eTransminderjit on: 0 07/01/2024 10:39 AM CDT
--- OUTSIDE RECORDS SUMMARY | 2024-07-01 10:40 | XMS_ITS | Clinical Summary ---
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 Gender Identity Not on file Sexual Orientation Not on file Occupation Industry Job Start Date Job End Date Not on file Not on file Not on file Not on file Last Filed Vital Signs Vital Sign Reading Time Taken Comments Blood Pressure 132/89 12/30/2016 11:52 AM STITCH BONDER MACHINE OPERATOR HELPER Pulse 92 12/30/2016 11:52 AM STITCH BONDER MACHINE OPERATOR HELPER Temperature 36.9 C (98.4 F) 01/29/2009 11:30 AM STITCH BONDER MACHINE OPERATOR HELPER Respiratory Rate 16 01/29/2009 11:30 AM STITCH BONDER MACHINE OPERATOR HELPER Oxygen Saturation 93% 01/29/2009 11:30 AM STITCH BONDER MACHINE OPERATOR HELPER Inhaled Oxygen Concentration - - Weight 76.7 kg (169 lb) 12/30/2016 11:52 AM STITCH BONDER MACHINE OPERATOR HELPER Height 167.6 cm (5' 6 ) 12/30/2016 11:52 AM STITCH BONDER MACHINE OPERATOR HELPER Body Mass Index 27.28 12/30/2016 11:52 AM STITCH BONDER MACHINE OPERATOR HELPER Plan of Treatment Health Maintenance Due Date [...] series) 2036 Medical Devices Implanted Type Area Medical Office Receptionist Assistant Device Identifier Shelf Expiration Date Model / Serial / Lot Sling Monarc [id number] Implanted:Qty: 1 on 01/28/2009 at [facility] Sling Pelvis [facility] [employer] [id number] / / Procedures Procedure Name Priority Date/Time [...] ASSESSMENT: BI-RADS CATEGORY 1: Negative DICTATION LOCATION: [facility] Narrative 10/31/2019 3:53 PM CDT BILATERAL [...] ASSESSMENT: BI-RADS CATEGORY 1: Negative DICTATION LOCATION: [facility] Tod Dallas MD MAMMO ORDERABLES Final Result from Last 3 Months or Most Recently Relevant to Health Maintenance Insurance [employer] [id number] POS II Advance Directives For more information, please contact: [phone] * Full Code (Latest Code Status on File) Date Activated Date Inactivated Comments 01/28/2009 9:06 PM 01/29/2009 4:29 PM * Full Code Date Activated Date Inactivated Comments 01/28/2009 7:38 PM 01/28/2009 9:06 PM * Full Code Date Activated Date Inactivated Comments 01/28/2009 2:46 PM 01/28/2009 7:38 PM Care Teams Goodwill Representative Relationship Specialty Start Date End Date Yancy Guerrero MD [address] [place] [phone] PCP - General Internal Medicine 09/22/14
--- OUTSIDE RECORDS SUMMARY | 2024-07-01 10:40 | XMS_ITS | Encounter Summary ---
Author Organization [facility] Address [address] [place] [address] Care Team Providers Care Pool Table Operator Name Role Phone Yancy Guerrero MD Primary Care Provider + Encounter Details Date Type Department Care Team (Latest Contact Info) Description 05/26/2005 Outpatient Historical [facility] Tod Cifuentes MD [address] [facility] [address] [place] [address] Other Screening Mammogram (Primary Dx) Social History Tobacco Use Types Packs/Day Years Used Date Smoking Tobacco: Never Assessed Comments Unknown Sex and Gender Information Value Date Recorded Sex Assigned at Not on file Legal Sex Female 4:27 AM GRAPHICS INTERN Gender Identity Not on file Sexual Orientation Not on file documented as of this encounter Plan of Treatment Not on file documented as of this encounter Visit Diagnoses Diagnosis Other screening mammogram- Primary documented in this encounter Care Teams Pool Table Operator Relationship Specialty Start Date End Date Yancy Guerrero MD [address] [place] [address] PCP - General Internal Medicine 09/22/14 documented as of this encounter
--- OUTSIDE RECORDS SUMMARY | 2024-07-01 10:40 | XMS_ITS | Encounter Summary ---
Author Organization [facility] Address [facility] [place] [address] Care Team Providers Care Manager Poker Name Role Phone Yancy Guerrero MD Primary Care Provider [phone] Encounter Details Date Type Department Care Team (Late st Contact Info) Description 06/26/2024 Scan [facility] [place] Scheduling [address], [facility] [address] [place] [id number] Scanned, [facility] Social History Tobacco Use [...] on filedocumented in this encounter Care Teams Manager Poker Relationship Specialty Start Date End Date Yancy Guerrero MD [address] [place] [address] PCP - General INTERNAL MEDICINE 06/26/24 documented as of this encounter
--- OUTSIDE RECORDS SUMMARY | 2024-07-01 10:40 | XMS_ITS | Encounter Summary ---
Author Organization [facility] Address [address] [place] [address] Phone Care Team Providers Care Siderographist Name Role Phone Yancy Guerrero MD Primary Care Provider + [phone] Lupillo Reyes MD Unavailable Encounter Details Date Type Department Care Team (Latest Contact Info) Description 11/25/2010 Orders Only [facility] Wendy Choudhary, ISAIAS [address] [facility] [address] [place], [place] [id number] Social History Tobacco Use Types Packs/Day Years Used Date Smoking Tobacco: Never Assessed Comments Unknown Sex and Gender Information Value Date Recorded Sex Assigned at Not on file Legal 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 BROADLOOM WEAVER Gender Identity Not on file Sexual Orientation [...] COVID: Suspected 12/06/2019 12/06/2019 12/20/2019 3:05 AM BROADLOOM WEAVER COVID: Suspected 01/14/2021 01/14/2021 01/14/2021 9:43 PM BROADLOOM WEAVER COVID: Suspected 01/17/2021 01/17/2021 01/18/2021 5:33 AM BROADLOOM WEAVER COVID: Suspected 08/06/2021 08/06/2021 08/07/2021 3:05 AM CDT COVID: Suspected 08/06/2021 08/06/2021 08/07/2021 3:18 AM CDT COVID19 08/06/2021 08/06/2021 08/16/2021 3:05 AM CDT COVID: Recovered Comment:Added based on recent COVID infection. 08/16/2021 08/16/2021 12/14/2021 3:05 AM C DT COVID: Suspected 09/23/2021 09/23/2021 09/23/2021 10:56 PM CDT COVID: Suspected 09/29/2021 09/29/2021 09/29/2021 10:32 PM CDT COVID: Suspected 12/24/2021 12/25/2021 12/25/2021 3:05 AM BROADLOOM WEAVER COVID: Suspected 12/25/2021 12/25/2021 12/26/2021 3:05 AM BROADLOOM WEAVER COVID: Suspected 12/25/2021 12/25/2021 12/26/2021 3:49 PM BROADLOOM WEAVER MDR gram neg/ESBL 2024 2024 documented as of this encounter Care Teams Siderographist Relationship Specialty Start Date End Date Yancy Guerrero MD [address] [place] [address] PCP - General 05/22/16 Lupillo Reyes MD [address] [facility] [address] [place] [address] Consulting Physician Orthopedic Surgery 07/26/22 documented as of this encounter
--- OUTSIDE RECORDS SUMMARY | 2024-07-01 10:40 | XMS_ITS | Referral Summary ---
Author Organization [facility] Address [address] [place] [address] Care Team Providers Care Sonography Technician Name Role Phone Yancy Guerrero MD Primary Care Provider [phone] Lupillo Reyes MD Unavailable [phone] Encounters Date Type Department Care Team Description 07/01/2024 Orders Only [facility] Urology [address] [facility] [address] [facility] Office Building [address] [place] [address] Chelsea Haywood MD Urinary tract infection without hematuria, site unspecified (Primary Dx) 06/28/2024 Results Follow-Up [facility] Urology [address] [facility] 11th [place] [address] [place] [address] Chelsea Haywood MD Urine culture Urine, bladder 06/28/2024 [facility]phone [facility] - [facility] Urology [address] [facility] 11th [place] [address] [place] [address] Erica Moore B.A. 06/27/2024 Telephone [facility] Case Management 1 [place] [address] Dulce Maria Benites RN 06/26/2024 Orders Only [facility] Home Care Services [address] [place] [address] [address] [place] [address] Laurie Tierney Chizuko, [facility] 06/20/2024 10:10 PM CDT - 06/26/2024 6:14 PM CDT Hospital Encounter [facility] [address] [place] [address] Carlos Palomares MD Baiocco, Joseph, MD Mendelsohn, Marc, MD Sepsis without acute organ dysfunction, due to unspecified organism (HCC) (Primary Dx); Kidney stone; Bradycardia; Pyelonephritis of right kidney Discharge Disposition: Discharge to home, home health skilled care 06/24/2024 Telephone [facility] Cardiology [facility] Advanced Medicine 8th [place] [address] [place] [address] Pat Calvo 06/24/2024 Documentation [facility] Urology [address] [facility] Medical Office Building 4 [address] [place] [address] Chelsea Haywood MD 2024 2:38 PM CDT Anesthesia Event [facility] Operating Room 1 [place] [address] Jyothi Roque MD Jablonski, Melody A., NP 2024 2:02 PM CDT - 2024 3:07 PM CDT Surgery [facility] Operating Room 1 [place] [address] Chelsea Haywood MD CYSTOSCOPY PLACEMENT URETERAL STENT 06/20/2024 Hospital Encounter [facility] ADMIT [address] [place] [address] 06/17/2024 Telephone [facility] Orthopaedic Surgery [address] [place] [address] 2nd Floor [address] [place] [address] Cheryl Trujillo RN WC Intake Form 06/04/2024 Telephone [facility] Orthopaedic Surgery [address] [place] [address] 2nd Floor [address] [place] [address] Cheryl Trujillo RN 04/08/2024 10:20 AM CONSTRUCTION INSPECTOR Office Visit [facility] Orthopaedic Surgery [address] [place] [address] Floor [address] [place] [address] Carlos Alberto Ayoub MD Impingement of right [...] 15 tablet 3 06/28/19 25 025 Active nitrofurantoin monohydrate (MACROBID) 100 mg capsuleIndicatio ns:Urinary tract infection without hematuria, site unspecified Take 1 capsule (100 mg total) by mouth 2 (two) times a day for 5 days 10 capsule 07/02/19 25 025 Active thiamine (VITAMIN B1) 100 [...] mL/hr 40 mL 06/27/19 25 025 Discontinued ertapenem (INVanz) 1 gram injection Infuse 10 mL (1,000 mg total) IV daily for 5 minutes for 4 days at 120 mL/hr 06/27/19 25 025 Active Problems Problem Noted Date Diagnosed Date Pyelonephritis of right kidney 06/24/2024 Overview (06/24/2024): 64 y.o. female with pmh anxiety/depression, AF (Xarelto), HTN, HLD transferred from [facility] for higher level of care. Had Right [...] 03/21/2023 Assessment & Plan (03/23/2023 7:20 AM CONSTRUCTION INSPECTOR): Atenolol resumed with reasonable control Continue to hold Dyazide and losartan until outpatient follow-up HLD (hyperlipidemia) 03/21/2023 Assessment & Plan (03/22/2023 2:05 PM CONSTRUCTION INSPECTOR): Continue atorvastatin Transaminases have normalized. Depression with anxiety 03/21/2023 Assessment & Plan (03/23/2023 7:20 AM CONSTRUCTION INSPECTOR): Cont citalopram 40mg daily and lorazepam 0.5mg BID Resolved Problems Problem Noted Date Diagnosed Date Resolved Date Hypotension 03/21/2023 03/22/2023 Assessment & Plan (03/21/2023 8:09 PM CONSTRUCTION INSPECTOR): - Presenting with BP 80/50s in setting of reduced PO intake and ongoing BP meds - (+)orthostatics on presentation - Hold BP meds, check orthostatics in AM - Restart meds as needed Headache 03/21/2023 03/22/2023 Assessment & Plan (03/21/2023 8:10 PM CONSTRUCTION INSPECTOR): - Tylenol ordered; avoid NSAIDs Weakness 03/21/2023 03/23/2023 Assessment & Plan (03/22/2023 2:06 PM CONSTRUCTION INSPECTOR): TSH and B12 within acceptable limits. Monitor symptoms as blood pressure and renal function recover Nausea 03/21/2023 03/22/2023 Assessment & Plan (03/21/2023 8:10 PM CONSTRUCTION INSPECTOR): - Zofran ordered SUN (acute kidney injury) 03/21/2023 Assessment & Plan (03/23/2023 7:19 AM CONSTRUCTION INSPECTOR): Creatinine improved today Check renal function and electrolytes in outpatient follow-up Continue to hold Dyazide and losartan until outpatient follow-up. Abnormal transaminases 03/21/202303/22 Assessment & Plan (03/21/2023 8:11 PM CONSTRUCTION INSPECTOR): - Elevated in setting of recent viral infection and presumed hypovolemia - Trend in AM - if continues to be elevated consider hepatitis panel/HIV given occupation history Complete rupture of rotator cuff 07/13/2022 03/21/2023 Acute medial meniscus tear of left knee 06/25/2020 03/21/2023 Overview (06/25/2020): Added automatically from request for surgery [id number] Axillary mass, left 12/30/2016 03/21/19 24 Lipoma [...] Recorded In the past 12 months has th e electric, gas, oil, or water company [...] often do you attend chur ch or protestant services? More than 4 times per year 06/02/2023 Do you belong to any clubs o r organizations such as christian groups, unions, fraternal or athletic groups, or [...] on file Legal 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 CONSTRUCTION INSPECTOR Gender Identity Not on file Sexual [...] on file Medical Devices Implanted Type Area Pet Care Attendant Device Identifier Shelf Expiration Date Model / Serial / Lot [employer] Universa 6fr 24cm Radiopaque Graduate Firm Monofilament Tether [id number] - [id number] Implanted:Qty: 1 on 2024 by Chelsea Haywood MD at [facility] Stent Right: Ureter [employer] [id number] 12/28/2026 [id number] / / [id number] [employer] Corkscrew Tigertail 5.5mm 14.7mm Drive Mechanism Vent 2 Square [id number] - [id number] Implanted:Qty: 1 on 07/26/2022 by Lupillo Reyes MD at [facility] Right: Shoulder [employer] 02/13/2024 AR-1927B CFT / / [id number] [employer] Corkscrew Tigertail 5.5mm 14.7[address] Drive Mechanism Vent 2 Square [id number] - [id number] Implanted:Qty: 1 on 07/26/2022 by Lupillo Reyes MD at [facility] Right: Shoulder [employer] 11/12/2024 AR-1927B CFT / / [id number] [employer] Swivelock C 4.75mm 19.1mm Closed Eyelet Vent [place] Suture Ar-2324bcc - [id number] Implanted:Qty: 1 on 07/26/2022 by Lupillo Reyes MD at [facility] Right: Shoulder [employer] 02/12/2026 AR-2324B CC / / [id number] Procedures Procedure Name Priority Date/Time Associated Diagnosis [...] CDT Kidney stone Case Notes Poc; Elian [phone] CYSTOSCOPY PLACEMENT URETERAL STENT 2024 2:43 PM CDT Kidney stone Case Notes Poc; Elian [phone] EGFR STAT 2024 1:07 PM CDT LACTATE [...] MD LAB BLOOD ORDERABLES Final Res ult [facility] One [facility] Department [place] [address] * (ABNORMAL) CBC without differential (06/25/2024 8:45 PM CDT) WBC 7.87 3.80 - 9.90 K/cumm Hgb 11.0(L) 11.9 - 15.5 g/dL [facility] Hct 32.9(L) 35.6 - 45.5 % [facility] Plt 385 150 - 400 K/cumm [facility] MPV 10.6 9.1 - 12.3 fL [facility] RBC 3.50(L) 3.90 - 5.20 M/cumm [facility] MCV 94.0 81.3 - 96.4 fL [facility] MCH 31.4 27.1 - 33.3 pg [facility] MCHC 33.4 32.3 - 35.7 g/dL [facility] RDW CV 14.4 11.1 - 14.9 % [facility] RDW SD 49.4(H) 35.7 - 48.1 fL [facility] NRBC abs 0.00 0.00 - 0.01 K/cumm [facility] Blood 06/25/2024 8:45 PM CDT 06/25/2024 9:59 PM CDT Braeden Alcantar MD LAB BLOOD ORDERABLES Final Res ult Performing Organization Address City/[facility]/ZIP Co de Phone Number [facility] [place] [address] * Phosphorus (06/25/2024 8:45 PM CDT) Pathologist [facility] Phosphorus, pl 2.8 2.3 - 4.5 mg/dL Blood 06/25/2024 8:45 PM CDT 06/25/2024 9:43 PM CDT Braeden Alcantar MD LAB BLOOD ORDERABLES Final Res ult Performing Organization Address [facility] Co de Phone Number [facility] [place] [address] * Magnesium (06/25/2024 8:45 PM CDT) [facility] Magnesium 2.0 1.4 - 2.5 mg/dL Blood 06/25/2024 8:45 PM CDT 06/25/2024 9:43 PM CDT Braeden Alcantar MD LAB BLOOD ORDERABLES Final Res ult Performing Organization Address City/[facility] Co de Phone Number [facility] [place] [address] * Basic metabolic panel (06/25/2024 8:45 PM CDT) Pathologist [facility] Sodium 139 135 - 145 mmol/L Potassium, pl 3.7 3.3 - 4.9 mmol/L [facility] Chloride 101 97 - 110 mmol/L [facility] CO2 30 22 - 32 mmol/L [facility] Anion gap 8 2 - 15 mmol/L [facility] BUN 11 6 - 25 mg/dL [facility] Creatinine 0.73 0.60 - 1.10 mg/dL [facility] Glucose 137 70 - 199 mg/dL [facility] Comment: Interpretive Data Fasting glucose >/= 126 [...] classification and Diagnosis of Diabetes Diabetes Care 202; 46: S19-S40. Current interpretive data was last revised 2022. Calcium 9.2 8.5 - 10.3 mg/dL [facility] Blood 06/25/2024 8:45 PM CDT 06/25/2024 9:43 PM CDT us Braeden Alcantar MD LAB BLOOD ORDERABLES Final Res ult [facility] One [facility] Department [place] [address] * eGFR (06/24/2024 9:08 PM CDT) eGFR [...] 9:08 PM CDT 06/24/2024 9:47 PM CDT Braeden Alcantar MD LAB BLOOD ORDERABLES Final Res ult [facility] Department [place] [address] * (ABNORMAL) CBC without differential (06/24/2024 9:08 PM CDT) WBC 8.12 3.80 - 9.90 K/cumm Hgb 10.9(L) 11.9 - 15.5 g/dL [facility] Hct 31.5(L) 35.6 - 45.5 % [facility] Plt 291 150 - 400 K/cumm [facility] MPV 11.0 9.1 - 12.3 fL [facility] RBC 3.43(L) 3.90 - 5.20 M/cumm [facility] MCV 91.8 81.3 - 96.4 fL [facility] MCH 31.8 27.1 - 33.3 pg [facility] MCHC 34.6 32.3 - 35.7 g/dL [facility] RDW CV 14.1 11.1 - 14.9 % [facility] RDW SD 47.6 35.7 - 48.1 fL [facility] NRBC abs 0.00 0.00 - 0.01 K/cumm [facility] Blood 06/24/2024 9:08 PM CDT 06/24/2024 10:07 PM CDT Braeden Alcantar MD LAB BLOOD ORDERABLES Final Res ult [facility] Department [place] [address] * Phosphorus (06/24/2024 9:08 PM CDT) Phosphorus, pl 2.9 2.3 - 4.5 mg/dL Blood 06/24/2024 9:08 PM CDT 06/24/2024 9:47 PM CDT Braeden Alcantar MD LAB BLOOD ORDERABLES Final Res ult Performing Organization Address City/State/[facility] Co de Phone Number [facility] [place] [address] * Magnesium (06/24/2024 9:08 PM CDT) Pathologist [facility] Magnesium 1.8 1.4 - 2.5 mg/dL Blood 06/24/2024 9:08 PM CDT 06/24/2024 9:47 PM CDT Braeden Alcantar MD LAB BLOOD ORDERABLES Final Res ult Performing Organization Address [facility] de Phone Number [facility] [place] [address] * Basic metabolic panel (06/24/2024 9:08 PM CDT) [facility] Sodium 141 135 - 145 mmol/L Potassium, pl 3.6 3.3 - 4.9 mmol/L [facility] Chloride 103 97 - 110 mmol/L [facility] CO2 30 22 - 32 mmol/L [facility] Anion gap 8 2 - 15 mmol/L [facility] BUN 8 6 - 25 mg/dL [facility] Creatinine 0.67 0.60 - 1.10 mg/dL [facility] Glucose 155 70 - 199 mg/dL [facility] Comment: Interpretive Data Fasting glucose >/= 126 [...] classification and Diagnosis of Diabetes Diabetes Care 202; 46: S19-S40. Current interpretive data was last revised 2022. Calcium 8.8 8.5 - 10.3 mg/dL [facility] Blood 06/24/2024 9:08 PM CDT 06/24/2024 9:47 PM CDT us Braeden Alcantar MD LAB BLOOD ORDERABLES Final Res ult [facility] Department [place] [address] * TRANSTHORACIC ECHO (TTE) COMPLETE W DOPPLER/CF W CONTRAST (06/24/2024 2:47 PM CDT) Estimated EF 55-60 % CONS SCIMAGE EF Mod BP 68 % CONS SCIMAGE Anatomical Region Laterality Modality Ultrasound 06/24/2024 1:39 PM CDT Narrative 06/24/2024 3:12 PM CDT [facility] [place] [address] Transthoracic Echocardiographic Report Patient Name: JULI KOO J : 1960 (64y ) Gender: F Study Date: 06/24/2024 01:39:40 PM Ht(Inch): 65 Wt(Lb): 201.06 BSA: 2.05 Vice President Global Advertising Sales: Renita Rosado RDCS Location: [id number] Order Provider: DONNY CARRANZA BMI: 33.45 BP: 123 / 58 Ref Provider: DONNY CARRANZA - PROCEDURES: Echocardiographic Report: Transthoracic complete echo with strain imaging and contrast, 2D, spectral and tissue Doppler, color flow Doppler, M-mode. Contrast: Contrast Enhancement was Employed: Due to suboptimal image quality with inadequate visualization of at least 2 of 16 LV wall segments in any view after initial imaging. Perflutren contrast was administered using the volume necessary to obtain adequate images. 0.6 ml Optison Administered, (2.4 ml wasted). Technically difficult study due to: Poor acoustic windows. INDICATIONS: compare wall motion to prior study, Atrial fibrillation, Atrial flutter, and new onset Bradycardia. CONCLUSIONS: 1. Normal left ventricular size based on volume index. Normal left ventricular systolic function. The Ejection Fraction is visually estimated to be 55-60 %. The average global longitudinal strain is abnormal. 2. Normal right ventricular size. Normal right ventricular systolic function. 3. Mildly dilated left atrium. 4. Mild mitral annular calcification. Mild mitral valve regurgitation. 5. No aortic valve stenosis. 6. Mild tricuspid regurgitation. The Estimated RVSP is : 30-35 mmHg. 7. Small pericardial effusion. 8. Normal aortic root size at sinuses of Valsalva. Normal aortic root size when indexed. ATTESTATION: I have personally reviewed and interpreted this study without fellow or resident. - DISCLAIMER: The study images and the final report will be retained in the patient chart by the Echo Laboratory for the legally required time period. This chart constitutes the legal record of any testing performed. FINDINGS: Left Ventricle: Normal left ventricular size based on volume index. Concentric LV hypertrophy. Normal left ventricular systolic function. The Ejection Fraction is visually estimated to be 55-60 %. The average global longitudinal strain is abnormal. The LV global strain is: -14.6 %. Right Ventricle: Normal right ventricular size. Normal right ventricular systolic function. Left Atrium: Mildly dilated left atrium. Right Atrium: The right atrium is normal in size. Mitral Valve: Mild mitral annular calcification. Mild mitral valve regurgitation. Aortic Valve: Mildly thickened aortic valve leaflets. No aortic valve stenosis. The mean transaortic gradient is 3 mmHg. The aortic valve area by the continuity equation (using VTI) is 2.87 cm2. Aortic valve dimensionless index is 0.91. Tricuspid Valve: Mildly thickened tricuspid valve. Mild tricuspid regurgitation. The Estimated RVSP is : 30-35 mmHg. Pulmonic Valve: Mild pulmonic regurgitation. Pericardium: Small pericardial effusion. Aorta: Normal aortic root size at sinuses of Valsalva. Normal aortic root size when indexed. MEASUREMENTS: 2D/MM Value Range Doppler Value Range LVIDd 2D 4.81 cm [ 3.80 - 5.20 ] AV Peak Shaheen 1.2 m/s [ 1.0 - 1.7 ] LVIDs 2D 3.18 cm [ 2.20 - 3.50 ] AV Peak PG 5.76 mmHg IVSd 2D 1.18 cm [ 0.60 - 0.90 ] AV Mean PG 3 mmHg LVPWd 2D 1.16 cm [ 0.60 - 0.90 ] AV VTI 28.0 cm LV Thickness Ratio 1.0 LVOT Peak Shaheen 1.1 m/s [ 0.7 - 1.1 ] LV FS 2D 33.96 % [ 27.00 - 45.00 ] LVOT Peak PG 4.84 mmHg LV Mass 2D 215.69 g LVOT Mean PG 2 mmHg LV Mass Index 2D 105.21 g/m2 LVOT VTI 25.6 cm RWT 0.48 LVOT Diam 2.00 cm EDV Mod BP 104.48 ml [ 46.00 - 106.00 ] TAHIR VTI 2.87 cm2 LV EDV Index 50.97 ml/m2 LVOT/AV VTI 0.91 - Dimensionless index (DVI) ESV Mod BP 32.96 ml [ 14.00 - 42.00 ] MV E Peak Shaheen 1.0 m/s [ 0.6 - 1.3 ] EF Mod BP 68 % [ 54 - 74 ] MV A Peak Shaheen 0.8 m/s [ 1.0 - 1.2 ] Visually Estimated EF 55-60 % MV E/A 1.2 ratio [ 0.8 - 1.5 ] LV GLS -14.6 % [ -25.0 - -18.0 ] MV Decel Time 194.80 msec [ 104.00 - 258.00 ] LA Length 4C 5.71 cm Med E` Shaheen 9.8 cm/sec [ 8.0 - 25.0 ] LA Length 2C 6.10 cm Lat E` Shaheen 8.8 cm/sec [ 10.0 - 25.0 ] LA Volume BP 56.57 ml Average E/E` 10.75 LA Volume Index 27.60 ml/m2 [ 16.00 - 34.00 ] TR Peak Shaheen 2.4 m/s [ 1.0 - 2.8 ] TAPSE 2.84 cm [ 1.71 - 5.00 ] TR Peak PG 23.0 mmHg AoR Diam 2D 3.18 cm [ 2.70 - 3.70 ] PV Peak Shaheen 1.0 m/s [ 0.4 - 0.8 ] Ao Root Index 1.55 cm/m2 [ 1.00 - 2.00 ] PV Peak PG 4.00 mmHg Electronically Signed By: Slava Carrion M.D. 06/24/2024 3:11:26 PM CDT Procedure Note Slava Carrion MD PhD - 06/24/2024 [facility] Cardiac [place] [address] Transthoracic Echocardiographic Report Patient Name: JULI KOO J : 1960 (64y ) Gender: F Study Date: 06/24/2024 01:39:40 PM Ht(Inch): 65 Wt(Lb): 201.06 BSA: 2.05 Vice President Global Advertising Sales: Renita Rosado RDCS Location: [id number] Order Provider:DONNY CARRANZA BMI: 33.45 BP: 123 / 58 Ref Provider: DONNY CARRANZA - PROCEDURES: Echocardiographic Report: Transthoracic complete echo with strain imagingand contrast, 2D, spectral and tissue Doppler, color flow Doppler, M-mode. Contrast: Contrast Enhancement was Employed: Due to suboptimal imagequality with inadequate visualization of at least 2 of 16 LV wall segments in any viewafter initial imaging. Perflutren contrast was administered using the volume necessaryto obtain adequate images. 0.6 ml Optison Administered, (2.4 ml wasted). Technically difficult study due to: Poor acoustic windows. INDICATIONS: compare wall motion to prior study, Atrial fibrillation, Atrial flutter,and new onset Bradycardia. CONCLUSIONS: 1. Normal left ventricular size based on volume index. Normal leftventricular systolic function. The Ejection Fraction is visually estimated to be 55-60 %. Theaverage global longitudinal strain is abnormal. 2. Normal right ventricular size. Normal right ventricular systolicfunction. 3. Mildly dilated left atrium. 4. Mild mitral annular calcification. Mild mitral valve regurgitation. 5. No aortic valve stenosis. 6. Mild tricuspid regurgitation. The Estimated RVSP is : 30-35 mmHg. 7. Small pericardial effusion. 8. Normal aortic root size at sinuses of Valsalva. Normal aortic root sizewhen indexed. ATTESTATION: I have personally reviewed and interpreted this study without fellow orresident. - DISCLAIMER: The study images and the final report will be retained in the patientchart by the Echo Laboratory for the legally required time period. This chart constitutesthe legal record of any testing performed. FINDINGS: Left Ventricle: Normal left ventricular size based on volume index.Concentric LV hypertrophy. Normal left ventricular systolic function. The EjectionFraction is visually estimated to be 55-60 %. The average global longitudinal strain isabnormal. The LV global strain is: -14.6 %. Right Ventricle: Normal right ventricular size. Normal right ventricularsystolic function. Left Atrium: Mildly dilated left atrium. Right Atrium: The right atrium is normal in size. Mitral Valve: Mild mitral annular calcification. Mild mitral valveregurgitation. Aortic Valve: Mildly thickened aortic valve leaflets. No aortic valvestenosis. The mean transaortic gradient is 3 mmHg. The aortic valve area by the continuityequation (using VTI) is 2.87 cm2. Aortic valve dimensionless index is 0.91. Tricuspid Valve: Mildly thickened tricuspid valve. Mild tricuspidregurgitation. The Estimated RVSP is : 30-35 mmHg. Pulmonic Valve: Mild pulmonic regurgitation. Pericardium: Small pericardial effusion. Aorta: Normal aortic root size at sinuses of Valsalva. Normal aortic rootsize when indexed. MEASUREMENTS: 2D/MM Value Range DopplerValue Range LVIDd 2D 4.81 cm [ 3.80 - 5.20 ] AV Peak Vel1.2 m/s [ 1.0 - 1.7 ] LVIDs 2D 3.18 cm [ 2.20 - 3.50 ] AV Peak PG5.76 mmHg IVSd 2D 1.18 cm [ 0.60 - 0.90 ] AV Mean PG3 mmHg LVPWd 2D 1.16 cm [ 0.60 - 0.90 ] AV VTI28.0 cm LV Thickness Ratio 1.0 LVOT PeakVel 1.1 m/s [ 0.7 - 1.1 ] LV FS 2D 33.96 % [ 27.00 - 45.00 ] LVOT Peak PG4.84 mmHg LV Mass 2D 215.69 g LVOT Mean PG2 mmHg LV Mass Index 2D 105.21 g/m2 LVOT VTI25.6 cm RWT 0.48 LVOT Diam2.00 cm EDV Mod BP 104.48 ml [ 46.00 - 106.00 ] TAHIR VTI2.87 cm2 LV EDV Index 50.97 ml/m2 LVOT/AV VTI0.91 - Dimensionless index (DVI) ESV Mod BP 32.96 ml [ 14.00 - 42.00 ] MV E PeakVel 1.0 m/s [ 0.6 - 1.3 ] EF Mod BP 68 % [ 54 - 74 ] MV A PeakVel 0.8 m/s [ 1.0 - 1.2 ] Visually Estimated EF 55-60 % MV E/A1.2 ratio [ 0.8 - 1.5 ] LV GLS -14.6 % [ -25.0 - -18.0 ] MV DecelTime 194.80 msec [ 104.00 - 258.00 ] LA Length 4C 5.71 cm Med E` Vel9.8 cm/sec [ 8.0 - 25.0 ] LA Length 2C 6.10 cm Lat E` Vel8.8 cm/sec [ 10.0 - 25.0 ] LA Volume BP 56.57 ml Average E/E`10.75 LA Volume Index 27.60 ml/m2 [ 16.00 - 34.00 ] TR Peak Vel2.4 m/s [ 1.0 - 2.8 ] TAPSE 2.84 cm [ 1.71 - 5.00 ] TR Peak PG23.0 mmHg AoR Diam 2D 3.18 cm [ 2.70 - 3.70 ] PV Peak Vel1.0 m/s [ 0.4 - 0.8 ] Ao Root Index 1.55 cm/m2 [ 1.00 - 2.00 ] PV Peak PG4.00 mmHg Electronically Signed By: Slava Carrion M.D. 06/24/2024 3:11:26 PM CDT us Donny Carranza NP CV ECHO PROCEDURES Fin al Result * eGFR (06/23/2024 9:45 PM CDT) eGFR 80 >=60 mL/min/1. 73 m2 Comment: Interpretive Data [...] interpretive data was last reviewed 2020. Blood 06/23/2024 9:45 PM CDT 06/23/2024 10:22 PM CDT us Braeden Alcantar MD LAB BLOOD ORDERABLES Final Res ult [facility] Department [place] [address] * (ABNORMAL) CBC without differential (06/23/2024 9:45 PM CDT) [facility] WBC 7.48 3.80 - 9.90 K/cumm Hgb 10.6(L) 11.9 - 15.5 g/dL [facility] Hct 30.7(L) 35.6 - 45.5 % [facility] Plt 223 150 - 400 K/cumm [facility] MPV 10.9 9.1 - 12.3 fL [facility] RBC 3.32(L) 3.90 - 5.20 M/cumm [facility] MCV 92.5 81.3 - 96.4 fL [facility] MCH 31.9 27.1 - 33.3 pg [facility] MCHC 34.5 32.3 - 35.7 g/dL [facility] RDW CV 14.1 11.1 - 14.9 % [facility] RDW SD 47.7 35.7 - 48.1 fL [facility] NRBC abs 0.00 0.00 - 0.01 K/cumm [facility] Blood 06/23/2024 9:45 PM CDT 06/23/2024 10:21 PM CDT Braeden Alcantar MD LAB BLOOD ORDERABLES Final Res ult Performing Organization Address City/[facility]/ZIP Co de Phone Number [facility] [place] [address] * Phosphorus (06/23/2024 9:45 PM CDT) [facility] Phosphorus, pl 2.9 2.3 - 4.5 mg/dL Blood 06/23/2024 9:45 PM CDT 06/23/2024 10:22 PM CDT Braeden Alcantar MD LAB BLOOD ORDERABLES Final Res ult [facility] [place] [address] * Magnesium (06/23/2024 9:45 PM CDT) Pathologist [facility] Magnesium 1.5 1.4 - 2.5 mg/dL Blood 06/23/2024 9:45 PM CDT 06/23/2024 10:22 PM CDT Braeden Alcantar MD LAB BLOOD ORDERABLES Final Res ult Performing Organization Address City/[facility] Co de Phone Number [facility] Department [place] [address] * (ABNORMAL) Basic metabolic panel (06/23/2024 9:45 PM CDT) [facility] Sodium 138 135 - 145 mmol/L Potassium, pl 2.8(L) 3.3 - 4.9 mmol/L [facility] Chloride 105 97 - 110 mmol/L [facility] CO2 25 22 - 32 mmol/L [facility] Anion gap 8 2 - 15 mmol/L [facility] BUN 8 6 - 25 mg/dL [facility] Creatinine 0.82 0.60 - 1.10 mg/dL [facility] Glucose 91 70 - 199 mg/dL [facility] Comment: Interpretive Data Fasting glucose >/= 126 [...] interpretive data was last revised 2022. Calcium 8.4(L) 8.5 - 10.3 mg/dL [facility] Blood 06/23/2024 9:45 PM CDT 06/23/2024 10:22 PM CDT Braeden Alcantar MD LAB BLOOD ORDERABLES Final Res ult [facility] [place] [address] * Critical Care (06/23/2024 9:12 AM CDT) Narrative Kecia Troy MD - 06/23/2024 9:12 AM CDT Kecia Troy MD 06/23/2024 4:13 PM Critical Care Performed by: Donny Carranza NP Authorized by: Donny Carranza NP CRITICAL CARE: Team: [place] Shift: AM Level of Billing: Subsequent Hospital Visit Level 3 My time spent with this patient was 55 minutes: Critical Provider Statement: I have seen and examined the patient on this day of service. I have reviewed and confirmed the history, physical exam, laboratory, and radiographic data as documented in the ICU note. I have reviewed and discussed my treatment plan with the patient's team and other medical/inside solar sales consultant staff. This time was in addition to and separate from care provided by other practitioners on this day of service. I spent time reviewing and interpreting data from bedside monitors, laboratory results, and imaging, I spent time discussing the management of this critically ill patient with consultants and the medical staff and I spent time documenting in the medical record us Donny Carranza FIELD OPERATIONS COORDINATOR IN CLINIC/BEDSIDE JOSE MARR Final Result * eGFR (06/22/2024 7:55 PM CDT) eGFR 80 >=60 mL/min/1. 73 m2 Comment: Interpretive Data [...] interpretive data was last reviewed 2020. Blood 06/22/2024 7:55 PM CDT 06/22/2024 8:52 PM CDT Braeden Alcantar MD LAB BLOOD ORDERABLES Final Res ult [facility] [place] [address] * (ABNORMAL) CBC without differential (06/22/2024 7:55 PM CDT) WBC 7.81 3.80 - 9.90 K/cumm Hgb 11.1(L) 11.9 - 15.5 g/dL [facility] Hct 33.1(L) 35.6 - 45.5 % [facility] Plt 180 150 - 400 K/cumm [facility] MPV 11.1 9.1 - 12.3 fL [facility] RBC 3.51(L) 3.90 - 5.20 M/cumm [facility] MCV 94.3 81.3 - 96.4 fL [facility] MCH 31.6 27.1 - 33.3 pg [facility] MCHC 33.5 32.3 - 35.7 g/dL [facility] RDW CV 14.3 11.1 - 14.9 % [facility] RDW SD 48.6(H) 35.7 - 48.1 fL [facility] NRBC abs 0.00 0.00 - 0.01 K/cumm [facility] Blood 06/22/2024 7:55 PM CDT 06/22/2024 9:23 PM CDT Braeden Alcantar MD LAB BLOOD ORDERABLES Final Res ult [facility] Department [place] [address] * (ABNORMAL) Phosphorus (06/22/2024 7:55 PM CDT) Pathologist [facility] Phosphorus, pl 2.2(L) 2.3 - 4.5 mg/dL Blood 06/22/2024 7:55 PM CDT 06/22/2024 8:52 PM CDT Braeden Alcantar MD LAB BLOOD ORDERABLES Final Res ult Performing Organization Address [facility] Co de Phone Number [facility] Department [place] [address] * Magnesium (06/22/2024 7:55 PM CDT) [facility] Magnesium 2.1 1.4 - 2.5 mg/dL Blood 06/22/2024 7:55 PM CDT 06/22/2024 8:52 PM CDT Braeden Alcantar MD LAB BLOOD ORDERABLES Final Res ult Performing Organization Address City/[facility] Co de Phone Number [facility] [place] [address] * (ABNORMAL) Basic metabolic panel (06/22/2024 7:55 PM CDT) [facility] Sodium 136 135 - 145 mmol/L Potassium, pl 4.1 3.3 - 4.9 mmol/L [facility] Chloride 106 97 - 110 mmol/L [facility] CO2 20(L) 22 - 32 mmol/L [facility] Anion gap 10 2 - 15 mmol/L [facility] BUN 15 6 - 25 mg/dL [facility] Creatinine 0.82 0.60 - 1.10 mg/dL [facility] Glucose 146 70 - 199 mg/dL [facility] Comment: Interpretive Data Fasting glucose >/= 126 [...] interpretive data was last revised 2022. Calcium 8.7 8.5 - 10.3 mg/dL [facility] Blood 06/22/2024 7:55 PM CDT 06/22/2024 8:52 PM CDT us Braeden Alcantar MD LAB BLOOD ORDERABLES Final Res ult [facility] [place] [address] * Critical Care (06/22/2024 6:39 PM CDT) Narrative Benjy Godinez MD PhD - 06/22/2024 6:39 PM CDT Benjy Godinez MD PhD 06/23/2024 9:03 PM Critical Care Performed by: Asmita Sarabia NP Authorized by: Asmita Sarabia NP CRITICAL CARE: Team: NORTH Shift: PM Level of Billing: Subsequent Hospital Visit Level 3 My time spent with this patient was 75 minutes: Critical Provider Statement: I have seen and examined the patient on this day of service. I have reviewed and confirmed the history, physical exam, laboratory, and radiographic data as documented in the ICU note. I have reviewed and discussed my treatment plan with the patient's team and other medical/inside solar sales consultant staff. This time was in addition to and separate from care provided by other practitioners on this day of service. I spent time reviewing and interpreting data from bedside monitors, laboratory results, and imaging and I spent time documenting in the medical record us Asmita Sarabia FIELD OPERATIONS COORDINATOR IN CLINIC/BEDSIDE O RDERABLES Final Result * Critical Care (06/22/2024 9:48 AM CDT) Narrative Kecia Troy MD - 06/22/2024 9:48 AM CDT Kecia Troy MD 06/23/2024 4:13 PM Critical Care Performed by: Donny Carranza NP Authorized by: Donny Carranza NP CRITICAL CARE: Team: KEN Shift: AM Level of Billing: Subsequent Hospital Visit Level 3 My time spent with this patient was 65 minutes: Critical Provider Statement: I have seen and examined the patient on this day of service. I have reviewed and confirmed the history, physical exam, laboratory, and radiographic data as documented in the ICU note. I have reviewed and discussed my treatment plan with the patient's team and other medical/inside solar sales consultant staff. This time was in addition to and separate from care provided by other practitioners on this day of service. I spent time reviewing and interpreting data from bedside monitors, laboratory results, and imaging, I spent time discussing the management of this critically ill patient with consultants and the medical staff and I spent time documenting in the medical record us Donny Carranza FIELD OPERATIONS COORDINATOR IN CLINIC/BEDSIDE JOSE MARR Final Result * (ABNORMAL) Vancomycin level trough Draw prior to giving vancomycin dose (06/22/2024 5:01 AM CDT) [facility] Vancomycin trough 6.8(L) 10.0 - 20.0 mcg/mL Blood 06/22/2024 5:01 AM CDT 06/22/2024 5:14 AM CDT Narrative [facility] - 06/22/2024 6:29 AM CDT Draw prior to giving vancomycin dose us Lyla Jenkins FIELD OPERATIONS COORDINATOR LAB BLOOD ORDERABLES Final Res ult [facility] Department [place] [address] * ECG 12 lead (2024 10:48 PM CDT) [facility] Ventricular Rate EKG/Min 56 BPM [facility] Atrial Rate 56 BPM [facility] OR-Interval (MSEC) 148 ms [facility] QRS-Interval (MSEC) 84 ms [facility] QT-Interval (MSEC) 530 ms [facility] QTc 511 ms [facility] P [place] 42 degrees [facility] R [place] -13 degrees [facility] T [place] 23 degrees [facility] Diagnosis Sinus bradycardia Prolonged QT Abnormal ECG Confirmed by Trenton ROSARIO, [facility] ([id number]) on 06/24/2024 6:54:15 PM [facility] 2024 10:4 8 PM CDT 06/24/2024 6:54 PM CDT us Braeden Alcantar MD ECG ORDERABLES Final Result [facility] * (ABNORMAL) POC Blood Gas and Chemistries, Arterial - (2024 9:59 PM CDT) pH, Art POC 7.34(L) 7.35 - 7.45 pCO2, Art POC 33(L) 35 - 45 mmHg [facility] pO2, Art POC 83 83 - 108 mmHg [facility] Na, POC 135 135 - 145 mmol/L [facility] K POC 3.7 3.3 - 4.9 mmol/L [facility] Comment: Interpretive Data Not all point of care methods assess for hemolysis. Confirm with instrument and retest K+ if not consistent with clinical signs and symptoms. Current Interpretive Data was last revised on 2023. Cl, POC 109 97 - 110 mmol/L [facility] Ionized Ca, POC 5.02 4.50 - 5.10 mg/dL [facility] Glucose, POC 155 70 - 199 mg/dL [facility] Lactate, POC 0.6(L) 0.7 - 2.0 mmol/L [facility] SO2 (chay) arterial 98(H) 90 - 95 % [facility] Base excess, POC -7.1 mmol/L [facility] HCO3, Art POC 18(L) 20 - 30 mmol/L [facility] Hct, POC 32.0(L) 36.3 - 45.3 % [facility] Total Hb, POC 10.6(L) 11.9 - 15.5 g/dL [facility] Blood 2024 9:59 PM CDT 2024 9:59 PM CDT Braeden Alcantar MD LAB POCT ORDERABLES - DEVICE F inal Result [facility] [place] [address] * XR Abdomen Ap 1 Vw (2024 6:40 PM CDT) Anatomical Region Laterality Modality Body, Abdomen N/A Computed Radiogr aphy 06/22/2024 9:27 AM CDT Impressions 06/22/2024 12:17 PM CDT Gastric tube tip and side-port projects over the gastric body with atypical appearance likely due to elevation of the left hemidiaphragm better seen on prior CT. Partially imaged right ureteral stent. Dictated by: Gray Woodall M.D. The radiology attending physician has personally reviewed this study, and had reviewed and/or edited this written report and agrees with it. Electronically signed by: Kevyn Herrera M.D. Narrative 06/22/2024 12:17 PM CDT EXAMINATION: Abdomen, one view. HISTORY: Check tube placement. COMPARISON: CT abdomen pelvis dated 06/20/2024 Procedure Note Kevyn Herrera MD - 06/22/2024 EXAMINATION: Abdomen, one view. HISTORY: Check tube placement. COMPARISON: CT abdomen pelvis dated 06/20/2024 IMPRESSION: Gastric tube tip and side-port projects over the gastric body with atypical appearance likely due to elevation of the left hemidiaphragm better seen on prior CT. Partially imaged right ureteral stent. Dictated by: Gray Woodall M.D. The radiology attending physician has personally reviewed this study, and had reviewed and/or edited this written report and agrees with it. Electronically signed by: Kevyn Herrera M.D. [facility] IMG XR PROCEDURES Final Result * X-ray chest 1 view (Portable) (2024 5:08 PM CDT) Anatomical Region Laterality Modality Body, Chest N/A Computed Radiogr aphy 2024 5:51 PM CDT Impressions 2024 5:51 PM CDT The current study is compared with the prior radiograph dated 06/20/2024. An endotracheal tube is approximately 3 centimeters above the giuliano. The heart and mediastinal contours are stable.. There is a small left effusion and probably a small right effusion There is no pneumothorax.. There is new left lower lobe consolidation and volume loss likely on the basis of mucous plugging. Mild. Infrahilar interstitial opacity seen compatible with edema. There are numerous old right rib fracture. Electronically signed by: Rose Stephen M.D. Narrative 2024 5:51 PM CDT EXAMINATION: 1 view chest radiograph Procedure Note Rose Stephen MD - 2024 EXAMINATION: 1 view chest radiograph IMPRESSION: The current study is compared with the prior radiograph dated 06/20/2024. An endotracheal tube is approximately 3 centimeters above the giuliano. The heart and mediastinal contours are stable.. There is a small left effusion and probably a small right effusion There is no pneumothorax.. There is new left lower lobe consolidation and volume loss likely on the basis of mucous plugging. Mild. Infrahilar interstitial opacity seen compatible with edema. There are numerous old right rib fracture. Electronically signed by: Rose Stephen M.D. Braeden Alcantar MD IMG XR PROCEDURES Final Result * HIV 1/2 Antibody plus p24 Antigen Blood (2024 5:02 PM CDT) HIV 1/2 ab + p24 ag Nonreactive Nonreactive Comment:Nonreactive for HIV- 1 antigen and HIV-1/HIV-2 antibodies. No laboratory evidence of HIV infection. If acute HIV infection is suspected, consider testing for HIV-1 RNA. Current interpretive data was last revised on 21. Blood 2024 5:02 PM CDT 2024 5:30 PM CDT us [facility] LAB MICROBIOLOGY - GENER AL ORDERABLES Final Result Performing Organization Address [facility] de Phone Number [facility] [address] * Hepatitis C antibody Blood (2024 5:02 PM CDT) Hep C Ab Nonreactive Nonreactive Comment:Antibodies to HCV no t detected. Does NOT exclude the possibility of recent exposure to HCV. Current interpretive data was last revised on 21 Blood 2024 5:02 PM CDT 2024 5:30 PM CDT us [facility] LAB MICROBIOLOGY - GENER AL ORDERABLES Final Result Performing Organization Address [facility] [place] [address] * RPR Blood (2024 5:02 PM CDT) RPR Nonreactive Nonreactive Blood 2024 5:02 PM CDT 2024 5:30 PM CDT us [facility] LAB MICROBIOLOGY - GENER AL ORDERABLES Final Result Performing Organization Address [facility] de Phone Number [facility] [place] [address] * Hepatitis B Surface Antigen Blood (2024 5:02 PM CDT) HepBsAg Nonreactive Nonreactive Blood 2024 5:02 PM CDT 2024 5:30 PM CDT [facility] LAB MICROBIOLOGY - GENER AL ORDERABLES Final Result Performing Organization Address [facility] de Phone Number [facility] [place] [address] * Lactate (2024 5:00 PM CDT) Lactate 0.7 0.7 - 2.0 mmol/L Blood 2024 5:00 PM CDT 2024 5:31 PM CDT Braeden Alcantar MD LAB BLOOD ORDERABLES [place] [address] * (ABNORMAL) eGFR (2024 5:00 PM CDT) eGFR 55(L) >=60 mL/min/1. 73 m2 Comment: Interpretive Data [...] interpretive data was last reviewed 2020. Blood 2024 5:00 PM CDT 2024 5:37 PM CDT Braeden Alcantar MD LAB BLOOD ORDERABLES Final Res ult [facility] Department [place] [address] * (ABNORMAL) Calcium, ionized (2024 5:00 PM CDT) [facility] Calcium, Ionized 4.43(L) 4.50 - 5.10 mg/dL Blood 2024 5:00 PM CDT 2024 5:37 PM CDT Braeden Alcantar MD LAB BLOOD ORDERABLES Final Res ult [facility] One [facility] [place] [address] * (ABNORMAL) CBC without differential (2024 5:00 PM CDT) [facility] WBC 7.37 3.80 - 9.90 K/cumm Hgb 10.2(L) 11.9 - 15.5 g/dL [facility] Hct 29.8(L) 35.6 - 45.5 % [facility] Plt 152 150 - 400 K/cumm [facility] MPV 10.9 9.1 - 12.3 fL [facility] RBC 3.20(L) 3.90 - 5.20 M/cumm [facility] MCV 93.1 81.3 - 96.4 fL [facility] MCH 31.9 27.1 - 33.3 pg [facility] MCHC 34.2 32.3 - 35.7 g/dL [facility] RDW CV 14.2 11.1 - 14.9 % [facility] RDW SD 49.1(H) 35.7 - 48.1 fL [facility] NRBC abs 0.00 0.00 - 0.01 K/cumm [facility] Blood 2024 5:00 PM CDT 2024 5:30 PM CDT rBaeden Alcantar MD LAB BLOOD ORDERABLES Final Res ult [facility] [place] [address] * Phosphorus (2024 5:00 PM CDT) Pathologist [facility] Phosphorus, pl 2.6 2.3 - 4.5 mg/dL Blood 2024 5:00 PM CDT 2024 5:37 PM CDT Braeden Alcantar MD LAB BLOOD ORDERABLES Final Res ult Performing Organization Address [facility] Co de Phone Number [facility] [place] [address] * Magnesium (2024 5:00 PM CDT) [facility] Magnesium 1.7 1.4 - 2.5 mg/dL Blood 2024 5:00 PM CDT 2024 5:37 PM CDT Braeden Alcantar MD LAB BLOOD ORDERABLES Final Res ult Performing Organization Address [facility] Co de Phone Number [facility] [place] [address] * (ABNORMAL) Blood gas, arterial (2024 5:00 PM CDT) [facility] pH, Art 7.36 7.35 - 7.45 PCO2, Arterial 34(L) 35 - 45 mmHg [facility] PO2, Arterial 125(H) 83 - 108 mmHg [facility] HCO3 Art (Calculated) 20 20 - 30 mmol/L [facility] BE, art -6 mmol/L [facility] Comment: Interpretive Data No Reference Range Established Current Interpretive Data was last revised on 2017 O2 Sat Art (Measured) 98(H) 90 - 95 % [facility] Blood 2024 5:00 PM CDT 2024 5:22 PM CDT Braeden Alcantar MD LAB BLOOD ORDERABLES Final Res ult [facility] Department [place] [address] * (ABNORMAL) Basic metabolic panel (2024 5:00 PM CDT) Pathologist [facility] Sodium 142 135 - 145 mmol/L Potassium, pl 3.1(L) 3.3 - 4.9 mmol/L [facility] Chloride 107 97 - 110 mmol/L [facility] CO2 23 22 - 32 mmol/L [facility] Anion gap 12 2 - 15 mmol/L [facility] BUN 15 6 - 25 mg/dL [facility] Creatinine 1.12(H) 0.60 - 1.10 mg/dL [facility] Glucose 126 70 - 199 mg/dL [facility] Comment: Interpretive Data Fasting glucose >/= 126 [...] classification and Diagnosis of Diabetes Diabetes Care 202; 46: S19-S40. Current interpretive data was last revised 2022. Calcium 8.1(L) 8.5 - 10.3 mg/dL [facility] Blood 2024 5:00 PM CDT 2024 5:37 PM CDT Braeden Alcantar MD LAB BLOOD ORDERABLES Final Res ult Performing Organization Address City/[facility]/ZIP Co de Phone Number [facility] [place] [address] * ECG 12 lead (2024 4:29 PM CDT) Pathologist [facility] Ventricular Rate EKG/Min 63 BPM [facility] Atrial Rate 63 BPM [facility] OR-Interval (MSEC) 144 ms [facility] QRS-Interval (MSEC) 86 ms [facility] QT-Interval (MSEC) 498 ms [facility] QTc 509 ms [facility] P [place] 17 degrees [facility] R [place] -22 degrees [facility] T [place] 12 degrees [facility] Diagnosis Normal sinus rhythm Minimal voltage criteria for LVH, may be normal variant Prolonged QT Abnormal ECG Confirmed by [facility] ROSARIO [facility] ([id number]) on 06/24/2024 6:57:56 PM [facility] 2024 4:29 PM CDT 06/24/2024 6:57 PM CDT us Braeden Alcantar MD ECG ORDERABLES Final Result [facility] * (ABNORMAL) POC Blood Gas and Chemistries, Arterial - (2024 3:47 PM CDT) [facility] pH, Art POC 7.42 7.35 - 7.45 pCO2, Art POC 31(L) 35 - 45 mmHg [facility] pO2, Art POC 158(H) 83 - 108 mmHg [facility] Na, POC 139 135 - 145 mmol/L [facility] K POC 2.9(L) 3.3 - 4.9 mmol/L [facility] Comment: Interpretive Data Not all point of care methods assess for hemolysis. Confirm with instrument and retest K+ if not consistent with clinical signs and symptoms. Current Interpretive Data was last revised on 2023. Cl, POC 112(H) 97 - 110 mmol/L [facility] Ionized Ca, POC 4.44(L) 4.50 - 5.10 mg/dL [facility] Glucose, POC 116 70 - 199 mg/dL [facility] Lactate, POC 1.2 0.7 - 2.0 mmol/L [facility] SO2 (chay) arterial 100(H) 90 - 95 % [facility] Base excess, POC -3.6 mmol/L [facility] HCO3, Art POC 20 20 - 30 mmol/L [facility] Hct, POC 31.0(L) 36.3 - 45.3 % [facility] Total Hb, POC 10.3(L) 11.9 - 15.5 g/dL [facility] Blood 2024 3:47 PM CDT 2024 3:47 PM CDT Braeden Alcantar MD LAB POCT ORDERABLES - DEVICE F inal Result Performing Organization Address City/[facility]/ZIP Co de Phone Number [facility] One [facility] [place] [address] * [place] Fluoroscopy < 1 Hour (2024 3:20 PM CDT) Narrative [facility] - 2024 3:20 PM CDT The images from this study are not interpreted by Radiology. Please refer to the physician's procedure / OR operative note. Chelsea Haywood MD IMG FLUOROSCOPY PROCEDURES Fin al Result Performing Organization Address [facility] Co de Phone Number [email or web address] * (ABNORMAL) Urine culture Urine, bladder (2024 3:20 PM CDT) Report Amended Report - Complete: Less than 100,000 colonies/mL Escherichia coli[1] The susceptibility pattern of this Escherichia coli indicates the possible production of an extended spectrum beta lactamase (ESBL). Patients infected with ESBL-producing organisms require contact isolation precautions. For therapeutic options for this organism, please contact infectious diseases. (1) Gram Negative Bacilli was initially reported as (clinically insignificant growth. (.) Organism ESCHERICHIA COLI [facility] Urine, bladder 2024 3: 20 PM CDT 2024 5:31 PM CDT Narrative [facility] - 06/27/2024 10:28 AM CDT URINE CULTURE Indications for Culture:->Urology patient Testing performed by [facility] Microbiology Laboratory ([phone]) Organism Antibiotic Method Susceptibility Escherichia coli Ampicillin INTERPRETATION Resistant Escherichia coli Cefazolin INTERPRETATION Resistant Escherichia coli Nitrofurantoin INTERPRETATION Susceptible Escherichia coli Gentamicin INTERPRETATION Susceptible Escherichia coli Trimethoprim with Sulfamethoxazole INTERPRETATION Resistant Escherichia coli Meropenem INTERPRETATION Susceptible Escherichia coli Cefepime INTERPRETATION Susceptible Dose-dependent Escherichia coli Ciprofloxacin INTERPRETATION Resistant Escherichia coli Ceftazidime INTERPRETATION Susceptible Escherichia coli Ceftriaxone INTERPRETATION Resistant Escherichia coli Cephalexin INTERPRETATION Resistant Escherichia coli Cefuroxime-axetil INTERPRETATION Resistant Escherichia coli Cefdinir INTERPRETATION Resistant Escherichia coli Amikacin INTERPRETATION Susceptible Escherichia coli Aztreonam INTERPRETATION Susceptible Escherichia coli Imipenem INTERPRETATION Susceptible Escherichia coli Ertapenem INTERPRETATION Susceptible Escherichia coli Minocycline INTERPRETATION Susceptible Escherichia coli Tobramycin INTERPRETATION Susceptible Escherichia coli Levofloxacin INTERPRETATION Resistant Escherichia coli Doxycycline INTERPRETATION Resistant Escherichia coli Fosfomycin INTERPRETATION Susceptible Chelsea Haywood MD LAB MICROBIOLOGY - GENERAL ORD ERABLES Edited Result - Final Performing Organization Address [facility]/ZIP Co de Phone Number [facility] Department [place] [address] * Lactate (2024 1:07 PM CDT) Pathologist [facility] Lactate 0.8 0.7 - 2.0 mmol/L Blood 2024 1:07 PM CDT 2024 1:40 PM CDT us Lyla Jenkins NP LAB BLOOD ORDERABLES Final Res ult Performing Organization Address [facility] de Phone Number [facility] Department [place] [address] * (ABNORMAL) eGFR (2024 1:07 PM CDT) Pathologist [facility] eGFR 50(L) >=60 mL/min/1. 73 m2 Comment: Interpretive Data [...] interpretive data was last reviewed 2020. Blood 2024 1:07 PM CDT 2024 2:06 PM CDT us Lyla Jenkins NP LAB BLOOD ORDERABLES Final Res ult [facility] Department [place] [address] * (ABNORMAL) CBC without differential (2024 1:07 PM CDT) WBC 7.70 3.80 - 9.90 K/cumm Hgb 10.6(L) 11.9 - 15.5 g/dL [facility] Hct 30.6(L) 35.6 - 45.5 % [facility] Plt 161 150 - 400 K/cumm [facility] MPV 11.0 9.1 - 12.3 fL [facility] RBC 3.31(L) 3.90 - 5.20 M/cumm [facility] MCV 92.4 81.3 - 96.4 fL [facility] MCH 32.0 27.1 - 33.3 pg [facility] MCHC 34.6 32.3 - 35.7 g/dL [facility] RDW CV 14.3 11.1 - 14.9 % [facility] RDW SD 49.0(H) 35.7 - 48.1 fL [facility] NRBC abs 0.00 0.00 - 0.01 K/cumm [facility] Blood 2024 1:07 PM CDT 2024 2:06 PM CDT us Lyla Jenkins NP LAB BLOOD ORDERABLES Final Res ult [facility] [place] [address] * (ABNORMAL) Basic metabolic panel (2024 1:07 PM CDT) Sodium 139 135 - 145 mmol/L Potassium, pl 3.3 3.3 - 4.9 mmol/L [facility] Chloride 108 97 - 110 mmol/L [facility] CO2 21(L) 22 - 32 mmol/L [facility] Anion gap 10 2 - 15 mmol/L [facility] BUN 16 6 - 25 mg/dL [facility] Creatinine 1.21(H) 0.60 - 1.10 mg/dL [facility] Glucose 100 70 - 199 mg/dL [facility] Comment: Interpretive Data Fasting glucose >/= 126 [...] interpretive data was last revised 2022. Calcium 7.8(L) 8.5 - 10.3 mg/dL [facility] Blood 2024 1:07 PM CDT 2024 2:06 PM CDT us Lyla Jenkins FIELD OPERATIONS COORDINATOR LAB BLOOD ORDERABLES Final Res ult [facility] Department [place] [address] * Urine culture Urine, clean voided (2024 8:45 AM CDT) Report Final Report: Less than 100,000 colonies/mL (clinically insignificant growth based on current clinical standards) Organism (CLINICALLY INSIGNIFICANT GROWTH [facility] Urine, clean voided 2024 8:45 AM CDT 2024 9:43 AM CDT Narrative [facility] - 06/22/2024 12:09 PM CDT Indications for Culture:->Recent positive UA Testing performed by [facility] Microbiology Laboratory ([phone]) us Braeden Alcantar MD LAB MICROBIOLOGY - GENERAL ORD ERABLES Final Result [facility] Department [place] [address] * (ABNORMAL) Urinalysis reflex to microscopic (2024 8:32 AM CDT) Color, ur Yellow Yellow Clarity, ur Turbid(A) Clear [facility] Specific gravity, ur 1.017 1.003 - 1.030 [facility] pH, urine 6.0 [facility] Comment: Interpretive Data U rine pH is affected by diet, medications, systemic acid-base disturbances, and renal tubular function. pH may affect urinary stone formation. For example, urine pH below 6.0 may help reduce the tendency for calcium phosphate stones and pH greater than 6.0 may reduce the tendency for uric acid stone formation. Source: [facility] Current Interpretive Data was last revised on 2017 Protein, ur ql 2+(A) Negative [facility] Glucose, ur ql Negative Negative [facility] Ketones, ur 1+(A) Negative [facility] Bilirubin, ur Negative Negative [facility] Blood, ur 1+(A) Negative [facility] Urobilinogen, ur <2.0 <2.0 mg/dL [facility] Nitrite, ur Positive(A) Negative [facility] Leukocyte esterase, ur 3+(A) Negative [facility] UA reflex comment Reflex to microscopic UA will be performed. [facility] Urine 2024 8:32 AM CDT 2024 9:19 AM CDT Braeden Alcantar MD LAB URINE ORDERABLES Final Res ult Performing Organization Address [facility] Co de Phone Number [facility] [place] [address] * (ABNORMAL) Urinalysis, microscopic only (2024 8:32 AM CDT) WBC, ur >50(A) 0 - 5 /HPF RBC, ur 6-10(A) 0 - 2 /HPF [facility] Epithelial cells, squamous, ur 1-5 0 - 5 /HPF [facility] Bacteria, ur 4+(A) [facility] Urine 2024 8:32 AM CDT 2024 9:19 AM CDT Braeden Alcantar MD LAB URINE ORDERABLES Final Res ult Performing Organization Address [facility] de Phone Number [facility] [place] [address] * US Kidney Complete (2024 12:33 AM CDT) Anatomical Region Laterality Modality Kidney N/A Ultrasound 2024 1:11 AM CDT Impressions 2024 6:17 AM CDT Area of concern on prior CT is obscured by bowel gas. Normal kidneys without evidence of renal stones and no hydronephrosis. Dictated by: Bhupinder Pearl MD The radiology attending physician has personally reviewed this study, and had reviewed and/or edited this written report and agrees with it. Electronically signed by: Yojana Perez M.D. Narrative 2024 6:17 AM CDT EXAMINATION: COMPLETE RENAL SONOGRAM HISTORY: Evaluate hydronephrosis COMPARISON: Same day CT FINDINGS: Kidneys: The echogenicity of both kidneys is normal. The kidneys are normal in size. The right kidney measures 12.4 cm in length, and the left, 12.6 cm in length. There is no hydronephrosis in either kidney. There are no renal calculi visualized. Bladder: The urinary bladder is normal. Bilateral ureteral jets are visualized. Evaluation of the area of concern on prior CT is limited by bowel gas. No distended ureter visualized. Procedure Note Yojana Perez MD - 2024 EXAMINATION: COMPLETE RENAL SONOGRAM HISTORY: Evaluate hydronephrosis COMPARISON: Same day CT FINDINGS: Kidneys: The echogenicity of both kidneys is normal. The kidneys are normal in size. The right kidney measures 12.4 cm in length, and the left, 12.6 cm in length. There is no hydronephrosis in either kidney. There are no renal calculi visualized. Bladder: The urinary bladder is normal. Bilateral ureteral jets are visualized. Evaluation of the area of concern on prior CT is limited by bowel gas. No distended ureter visualized. IMPRESSION: Area of concern on prior CT is obscured by bowel gas. Normal kidneys without evidence of renal stones and no hydronephrosis. Dictated by: Bhupinder Pearl MD The radiology attending physician has personally reviewed this study, and had reviewed and/or edited this written report and agrees with it. Electronically signed by: Yojana Perez M.D. Miko Edwards MD IMG US PROCEDURES Final Result * Check Sample (06/20/2024 11:13 PM CDT) ABO Rh A Negative [facility] OTHER 06/20/2024 11:1 3 PM CDT 06/20/2024 11:45 PM CDT us Carlos Palomares MD LAB BLOOD ORDERABLES Shanell l Result [facility] Department [place] [address] [facility] * XR Chest 1 Vw Portable (06/20/2024 11:07 PM CDT) Anatomical Region Laterality Modality Body, Chest N/A Computed Radiogr aphy 06/20/2024 11:5 0 PM CDT Impressions 2024 8:[address] dated 06/20/2024. Mild pulmonary edema. Small lung volume with atelectasis. Left the lower lobe partial lung collapse. No pleural effusion or pneumothorax. No consolidation. Apparent widening of mediastinum likely represent a combination of rotation and vascular crowding. CT can be obtained if there is a clinical concern for aortic pathology. Otherwise stable cardiomediastinal silhouette. Dictated by: Bhupinder Pearl MD The radiology attending physician has personally reviewed this study, and had reviewed and/or edited this written report and agrees with it. Electronically signed by: Braeden Lyle M.D. Narrative 2024 8:52 AM CDT EXAMINATION: 1 view chest radiograph Procedure Note Braeden Lyle MD PhD - 2024 EXAMINATION: 1 view chest radiograph IMPRESSION: Comparison CT dated 06/20/2024. Mild pulmonary edema. Small lung volume with atelectasis. Left the lower lobe partial lung collapse. No pleural effusion or pneumothorax. No consolidation. Apparent widening of mediastinum likely represent a combination of rotation and vascular crowding. CT can be obtained if there is a clinical concern for aortic pathology. Otherwise stable cardiomediastinal silhouette. Dictated by: Bhupinder Pearl MD The radiology attending physician has personally reviewed this study, and had reviewed and/or edited this written report and agrees with it. Electronically signed by: Braeden Lyle M.D. Miko Edwards MD IMG XR PROCEDURES Final Result * CT Body Outside Consult (06/20/2024 10:51 PM CDT) Anatomical Region Laterality Modality Body N/A Computed Tomogra phy 2024 12:5 6 AM CDT Impressions 2024 8:52 AM CDT 1. No hydronephrosis. The ureters appear nondistended and therefore difficult to track. 2. Soft tissue density with calcification along the tract of the right ureter and the gonadal vein in the absence of proximal dilation could represent infected nonobstructive stone in the appropriate clinical context. 3. Nonspecific findings of enlarged right kidney with mild surrounding stranding. Correlate with urinalysis and physical exam for pyelonephritis. The findings, conclusions and recommendations within this report do not replace the initial findings, conclusions and recommendations made at the facility where the study was performed based upon the imaging and clinical condition at that time. Comparison with the prior report and clinical history is necessary. The provided images may or may not represent the [place] source data set and thus may contain changes that may lower the accuracy of this second-opinion interpretation. Dictated by: Bhupinder Pearl MD The radiology attending physician has personally reviewed this study, and had reviewed and/or edited this written report and agrees with it. Electronically signed by: Braeden Lyle M.D. Narrative 2024 8:52 AM CDT EXAMINATION: RADIOLOGY CONSULTATION ON OUTSIDE IMAGING STUDY STUDY INITIALLY PERFORMED: 06/20/2024 at [facility]. TYPE OF STUDY: Multiple CT images of the abdomen and pelvis without contrast are provided at the time of this interpretation. CONTRAST ROUTE: No contrast was administered. The protocol was adequate to address the clinical question. The outside final report was not available at the time of this second opinion interpretation. TYPE OF CONSULTATION: Consult on outside imaging study with images submitted through Outside Image Sharing [facility] DATE OF CONSULTATION: 2024 12:29 AM HISTORY: Evaluate kidney stone. COMPARISON: None available. FINDINGS: Bibasilar atelectasis. Borderline heart size. No pericardial effusion. No abnormality within the liver, spleen, pancreas, adrenal glands. Gallbladder within normal limit. The right kidney appears mildly larger than the left kidney. There are bilateral perirenal stranding which is nonspecific. No hydronephrosis. The ureters appear non-dilated and has a result difficult to track due to peristalsis. Urinary bladder is nondistended. There is area of soft tissue density with hyperdense focus in the medial right lower quadrant along the course of right ureter and gonadal vein. Urinary bladder is nondistended. No pelvic lymphadenopathy. Uterus is absent. No suspicious adnexal mass. Aorta is normal in course with atherosclerosis. No retroperitoneal lymphadenopathy. Scattered reactive lymph nodes. No bowel obstruction. No pneumoperitoneum, free fluid or drainable fluid collection. Diverticulosis without diverticulitis. No right lower quadrant stranding. Symmetrical muscle bulk. No acute or suspicious osseous lesion. Procedure Note Braeden Lyle MD PhD - 2024 EXAMINATION: RADIOLOGY CONSULTATION ON OUTSIDE IMAGING STUDY STUDY INITIALLY PERFORMED: 06/20/2024 at [facility]. TYPE OF STUDY: Multiple CT images of the abdomen and pelvis without contrast are provided at the time of this interpretation. CONTRAST ROUTE: No contrast was administered. The protocol was adequate to address the clinical question. The outside final report was not available at the time of this second opinion interpretation. TYPE OF CONSULTATION: Consult on outside imaging study with images submitted through Outside Image [facility]aring [facility] DATE OF CONSULTATION: 2024 12:29 AM HISTORY: Evaluate kidney stone. COMPARISON: None available. FINDINGS: Bibasilar atelectasis. Borderline heart size. No pericardial effusion. No abnormality within the liver, spleen, pancreas, adrenal glands. Gallbladder within normal limit. The right kidney appears mildly larger than the left kidney. There are bilateral perirenal stranding which is nonspecific. No hydronephrosis. The ureters appear non-dilated and has a result difficult to track due to peristalsis. Urinary bladder is nondistended. There is area of soft tissue density with hyperdense focus in the medial right lower quadrant along the course of right ureter and gonadal vein. Urinary bladder is nondistended. No pelvic lymphadenopathy. Uterus is absent. No suspicious adnexal mass. Aorta is normal in course with atherosclerosis. No retroperitoneal lymphadenopathy. Scattered reactive lymph nodes. No bowel obstruction. No pneumoperitoneum, free fluid or drainable fluid collection. Diverticulosis without diverticulitis. No right lower quadrant stranding. Symmetrical muscle bulk. No acute or suspicious osseous lesion. IMPRESSION: 1. No hydronephrosis. The ureters appear nondistended and therefore difficult to track. 2. Soft tissue density with calcification along the tract of the right ureter and the gonadal vein in the absence of proximal dilation could represent infected nonobstructive stone in the appropriate clinical context. 3. Nonspecific findings of enlarged right kidney with mild surrounding stranding. Correlate with urinalysis and physical exam for pyelonephritis. The findings, conclusions and recommendations within this report do not replace the initial findings, conclusions and recommendations made at the facility where the study was performed based upon the imaging and clinical condition at that time. Comparison with the prior report and clinical history is necessary. The provided images may or may not represent the [place] source data set and thus may contain changes that may lower the accuracy of this second-opinion interpretation. Dictated by: Bhupinder Pearl MD The radiology attending physician has personally reviewed this study, and had reviewed and/or edited this written report and agrees with it. Electronically signed by: Braeden Lyle M.D. Marc Grijalva MD IMG CT PROCEDURES Final Result * Neuro CT Outside Reference (06/20/2024 10:49 PM CDT) Impressions [facility] - 06/20/2024 10:49 PM CDT These images are for Reference purposes only and have not been reviewed by [facility] Radiology. There will be no report generated by a [facility] Radiologist. Narrative RAD_PACS_[facility] - 06/20/2024 10:49 PM CDT EXAMINATION: Images For Reference Purposes Only Marc Grijalva MD IMG CT PROCEDURES Final Result [facility] * ECG 12-LEAD (06/20/2024 10:46 PM CDT) Narrative [facility] - 06/20/2024 10:46 PM CDT Carlos Palomares MD 06/20/2024 10:47 PM ECG 12 lead Date/Time: 06/20/2024 10:46 PM Performed by: Carlos Palomares MD Authorized by: Miko Edwards MD Comments: Normal sinus rhythm, rate of 72, normal axis, prolonged QT interval, inferior Q-waves old as of 08/02/2023, no convincing evidence of acute ischemia. Procedure Note Carlos Palomares MD - 06/20/2024 10:46 PM CDT Procedure ECG 12 lead Date/Time: 06/20/2024 10:46 PM Performed by: Carlos Palomares MD Authorized by: Miko Edwards MD Comments: Normal sinus rhythm, rate of 72, normal axis, prolonged QT interval,inferior Q- waves old as of 08/02/2023, no convincing evidence of acuteischemia. Carlos Palomares MD 06/20/24 [id number] Miko Edwards MD ECG ORDERABLES Final R esult Performing Organization Address [facility] Co de Phone Number [facility] * Sepsis Lactate w/ Reflex (06/20/2024 10:38 PM CDT) [facility] Sepsis Lactate 1.1 0.7 - 2.0 mmol/L Blood 06/20/2024 10:3 8 PM CDT 06/20/2024 10:42 PM CDT Carlos Palomares MD LAB BLOOD ORDERABLES Shanell l Result Performing Organization Address [facility] de Phone Number [facility] [place] [address] * POCT glucose (06/20/2024 10:27 PM CDT) [facility] Glucose, POC 162 70 - 199 mg/dL Blood 06/20/2024 10:2 7 PM CDT 06/20/2024 10:27 PM CDT Carlos Palomares MD LAB POCT ORDERABLES - DEV ICE Final Result Performing Organization Address [facility] de Phone Number [facility] [place] [address] * (ABNORMAL) eGFR (06/20/2024 10:24 PM CDT) [facility] eGFR 37(L) >=60 mL/min/1. 73 m2 Comment: Interpretive Data [...] interpretive data was last reviewed 2020. Blood 06/20/2024 10:2 4 PM CDT 06/20/2024 10:35 PM CDT Miko Edwards MD LAB BLOOD ORDERABLES nal Result [facility] One [facility] [place] [address] * (ABNORMAL) Differential, auto (06/20/2024 10:24 PM CDT) Neutrophil abs 8.00(H) 1.50 - 6.50 K/cumm Imm gran abs 0.12(H) 0.00 - 0.10 K/cumm [facility] Lymphocyte abs 1.11 0.80 - 3.30 K/cumm [facility] Monocyte abs 1.06(H) 0.20 - 0.80 K/cumm [facility] Eosinophil abs 0.00 0.00 - 0.50 K/cumm [facility] Basophil abs 0.04 0.00 - 0.10 K/cumm [facility] Neutrophil pct 77.4 % [facility] Comment: Interpretive Data Percent cell count reference ranges are not reported, since discordance with absolute values may lead to misinterpretation of CBC data. Current Interpretive Data was last revised on 2017. Imm gran pct 1.2 % [facility] Comment: Interpretive Data Percent cell count reference ranges are not reported, since discordance with absolute values may lead to misinterpretation of CBC data. Current Interpretive Data was last revised on 2017. Lymphocyte pct 10.7 % [facility] Comment: Interpretive Data Percent cell count reference ranges are not reported, since discordance with absolute values may lead to misinterpretation of CBC data. Current Interpretive Data was last revised on 2017. Monocyte pct 10.3 % [facility] Comment: Interpretive Data Percent cell count reference ranges are not reported, since discordance with absolute values may lead to misinterpretation of CBC data. Current Interpretive Data was last revised on 2017. Eosinophil pct 0.0 % [facility] Comment: Interpretive Data Percent cell count reference ranges are not reported, since discordance with absolute values may lead to misinterpretation of CBC data. Current Interpretive Data was last revised on 2017. Basophil pct 0.4 % [facility] Comment: Interpretive Data Percent cell count reference ranges are not reported, since discordance with absolute values may lead to misinterpretation of CBC data. Current Interpretive Data was last revised on 2017. Blood 06/20/2024 10:2 4 PM CDT 06/20/2024 10:35 PM CDT Miko Edwards MD LAB BLOOD ORDERABLES Fi nal Result [facility] [place] [address] * Respiratory pathogen panel Nasopharyngeal (06/20/2024 10:24 PM CDT) Pathologist [facility] Influenza A RNA Not Detected Not Detected Influenza B RNA Not Detected Not Detected [facility] RSV RNA Not Detected Not Detected [facility] COVID-19 RNA Not Detected Not Detected [facility] Coronavirus 229E RNA Not Detected Not Detected [facility] Coronavirus HKU1 RNA Not Detected Not Detected [facility] Coronavirus NL63 RNA Not Detected Not Detected [facility] Coronavirus OC43 RNA Not Detected Not Detected [facility] Adenovirus DNA Not Detected Not Detected [facility] Metapneumovirus RNA Not Detected Not Detected [facility] Rhinovirus/Enterov irus RNA Not Detected Not Detected [facility] Parainfluenza 1 RNA Not Detected Not Detected [facility] Parainfluenza 2 RNA Not Detected Not Detected [facility] Parainfluenza 3 RNA Not Detected Not Detected [facility] Parainfluenza 4 RNA Not Detected Not Detected [facility] B. pertussis DNA Not Detected Not Detected [facility] B. parapertussis DNA Not Detected Not Detected [facility] C. pneumoniae DNA Not Detected Not Detected [facility] M. pneumoniae DNA Not Detected Not Detected [facility] Nasopharyngeal 06/20/2024 10 :24 PM CDT 06/20/2024 10:40 PM CDT Narrative [facility] - 06/20/2024 11:35 PM CDT Is the Patient experiencing symptoms consistent with COVID?->No Surveillance testing for transplant patient?->No Interpretive Data The [employer] FilmArray Respiratory Panel (RP2.1) assay is a multiplexed real-time PCR based nucleic acid test capable of simultaneous qualitative detection and identification of multiple respiratory viral and bacterial nucleic acids, including SARS Coronavirus 2 (the causative agent of COVID-19). The following bacteria, viruses and virus subtypes can be identified using the [employer]Array RP2.1 assay: Bordetella pertussis, Bordetella parapertussis, Chlamydia pneumoniae, Mycoplasma pneumoniae, Adenovirus, SARS Coronavirus 2, seasonal coronaviruses (Coronavirus HKU1, Coronavirus NL63, Coronavirus 229E, and Coronavirus OC43), Influenza A, Influenza A subtype H1, Influenza A subtype H3, Influenza A subtype 2009 H1, Influenza B, Metapneumovirus, Parainfluenza 1, Parainfluenza 2, Parainfluenza 3, Parainfluenza 4, RSV, Rhinovirus/Enterovirus. Due to the genetic similarity between human Rhinovirus and Enterovirus, the FilmArray RP2.1 assay cannot reliably differentiate them. Coronavirus OC43 may cross-react with some isolates of Coronavirus HKU1. A dual positive result may be due to cross-reactivity or may indicate a co- infection. The detection and identification of specific viral and bacterial nucleic acids from individuals exhibiting signs and symptoms of a respiratory infection aids in the diagnosis of respiratory infection if used in conjunction with other clinical and epidemiological information. The results of this test should not be used as the sole basis for diagnosis, treatment, or other management decisions. Negative results in the setting of a respiratory illness may be due to infection with pathogens that are not detected by this test. Positive results do not rule out infection/co-infection with other organisms. The agent(s) detected by the FilmArray RP2.1 may not be the definite cause of disease. Additional testing (lab, imaging, etc.) may be necessary when evaluating a patient with possible respiratory tract infection. The FilmArray RP2.1 assay has FDA clearance for testing of FIELD OPERATIONS COORDINATOR swabs. The performance of additional specimen types has been assessed by the performing laboratory. The performance characteristics of this assay have been determined by [facility] Molecular Infectious Disease Laboratory. Current interpretive data was last revised on 21. Miko Edwards MD LAB MICROBIOLOGY - [facility] ORDERABLES Final Result [facility] One [facility] Department [place] [address] * (ABNORMAL) CBC with auto differential (06/20/2024 10:24 PM CDT) WBC 10.33(H) 3.80 - 9.90 K/cumm Hgb 10.6(L) 11.9 - 15.5 g/dL [facility] Hct 31.6(L) 35.6 - 45.5 % [facility] Plt 167 150 - 400 K/cumm [facility] MPV 10.3 9.1 - 12.3 fL [facility] RBC 3.37(L) 3.90 - 5.20 M/cumm [facility] MCV 93.8 81.3 - 96.4 fL [facility] MCH 31.5 27.1 - 33.3 pg [facility] MCHC 33.5 32.3 - 35.7 g/dL [facility] RDW CV 14.0 11.1 - 14.9 % [facility] RDW SD 47.5 35.7 - 48.1 fL [facility] NRBC abs 0.02(H) 0.00 - 0.01 K/cumm [facility] Blood 06/20/2024 10:2 4 PM CDT 06/20/2024 10:35 PM CDT Miko Edwards MD LAB BLOOD ORDERABLES Fi nal Result [facility] [place] [address] * Blood culture Blood Peripheral (06/20/2024 10:24 PM CDT) Report Final Report: No growth Blood (Peripheral) 06/20/2024 10:24 PM CDT 06/20/2024 10:37 PM CDT Narrative [facility] - 06/25/2024 7:01 AM CDT From a different site than #1. Draw Blood cultures before administration of Antibiotics Collection->Peripheral 1. Blood cultures are incubated for 4 days on a continuously monitored blood culture system. The first report of a negative culture is issued within 24 hours of receipt of the specimen in the laboratory. 2. Positive culture results are reported as soon as they are detected. 3. The most important factor for detection of microbes in the setting of bloodstream infection is the volume of blood submitted for culture. Failure to collect an optimal blood volume can result in false negative blood cultures. 4. For pediatric patients, the recommended blood volume to collect follows a weight based strategy. See the electronic test catalog for collection instructions. 5. For positive blood cultures, a rapid molecular test may be performed for organism identification using the seun ePlex blood culture identification panel for gram positive (BCID-GP) and gram negative (BCID-GN) organisms. This nucleic acid amplification test detects microbial DNA in positive blood culture broth. This assay has been cleared by the [place] Food and Drug Administration and its performance characteristics have been verified by the [facility] Microbiology Laboratory. For questions about this culture, contact the Microbiology Laboratory at [phone]. Interpretive data was last revised on 23. Miko Edwards MD LAB MICROBIOLOGY - [facility] ORDERABLES Final Result [facility] Eileen [facility] [place] [address] * Blood culture Blood Peripheral (06/20/2024 10:24 PM CDT) Report Final Report: No growth Blood (Peripheral) 06/20/2024 10:24 PM CDT 06/20/2024 10:38 PM CDT Adam [facility] - 06/25/2024 7:01 AM CDT Draw Blood cultures before administration of Antibiotics Collection->Peripheral 1. Blood cultures are incubated for 4 days on a continuously monitored blood culture system. The first report of a negative culture is issued within 24 hours of receipt of the specimen in the laboratory. 2. Positive culture results are reported as soon as they are detected. 3. The most important factor for detection of microbes in the setting of bloodstream infection is the volume of blood submitted for culture. Failure to collect an optimal blood volume can result in false negative blood cultures. 4. For pediatric patients, the recommended blood volume to collect follows a weight based strategy. See the electronic test catalog for collection instructions. 5. For positive blood cultures, a rapid molecular test may be performed for organism identification using the seun ePlex blood culture identification panel for gram positive (BCID-GP) and gram negative (BCID-GN) organisms. This nucleic acid amplification test detects microbial DNA in positive blood culture broth. This assay has been cleared by the [place] Food and Drug Administration and its performance characteristics have been verified by the [facility] Microbiology Laboratory. For questions about this culture, contact the Microbiology Laboratory at [phone]. Interpretive data was last revised on 23. Miko Edwards MD LAB MICROBIOLOGY - GENE [facility] ORDERABLES Final Result [facility] Eileen [facility] Department [place] [address] * aPTT (06/20/2024 10:24 PM CDT) aPTT 28 28 - 38 sec Comment: Interpretive Data Heparin therapeutic range: 66.0 - 100.0 seconds. Range based on correlation with therapeutic heparin activity range of 0.3 - 0.7 Units/mL. Current interpretive data was last revised on 2022. Blood 06/20/2024 10:2 4 PM CDT 06/20/2024 10:38 PM CDT Miko Edwards MD LAB BLOOD ORDERABLES Fi nal Result Performing Organization Address [facility] Co de Phone Number [facility] [place] [address] * (ABNORMAL) Protime-INR (06/20/2024 10:24 PM CDT) PT 13.5(H) 9.7 - 13.0 sec INR 1.24(H) 0.90 - 1.20 [facility] Comment: Interpretive data Oral anticoagulant therapeutic ranges: Venous thromboembolism prophylaxis or treatment: 2.0-3.0 CARDIOLOGY Standard range: 2.0-3.0 High-intensity range: 2.5-3.5 Refer to indication-specific guidelines for appropriate target ranges for prosthetic heart valve replacement. Current interpretive data was last revised on 2019. Blood 06/20/2024 10:2 4 PM CDT 06/20/2024 10:38 PM CDT Miko Edwards MD LAB BLOOD ORDERABLES Fi nal Result Performing Organization Address [facility] Co de Phone Number [facility] [place] [address] * Type and screen (06/20/2024 10:24 PM CDT) ABO Rh A Negative Jeanette, indirect Negative [facility] Blood 06/20/2024 10:2 4 PM CDT 06/20/2024 10:42 PM CDT Narrative [facility] - 06/20/2024 11:43 PM CDT Has the patient had Daratumumab or Isatuximab in the past 6 months?->Unknown Miko Edwards MD LAB BLOOD BANK TEST ORD ERABLES Final Result Performing Organization Address City/[facility]/ZIP Co de Phone Number [facility] Department [place] [address] * (ABNORMAL) Basic metabolic panel (06/20/2024 10:24 PM CDT) [facility] Sodium 138 135 - 145 mmol/L Potassium, pl 3.3 3.3 - 4.9 mmol/L [facility] Chloride 106 97 - 110 mmol/L [facility] CO2 22 22 - 32 mmol/L [facility] Anion gap 10 2 - 15 mmol/L [facility] BUN 19 6 - 25 mg/dL [facility] Creatinine 1.56(H) 0.60 - 1.10 mg/dL [facility] Glucose 134 70 - 199 mg/dL [facility] Comment: Interpretive Data Fasting glucose >/= 126 [...] interpretive data was last revised 2022. Calcium 7.2(L) 8.5 - 10.3 mg/dL [facility] Blood 06/20/2024 10:2 4 PM CDT 06/20/2024 10:35 PM CDT Miko Edwards MD LAB BLOOD ORDERABLES Fi nal Result Performing Organization Address [facility]/ZIP Co de Phone Number [facility] [place] [address] * COLONOSCOPY (07/18/2017 9:10 AM CDT) Anatomical Region Laterality Modality Other Narrative Procedure Note Mike Locke MD - 07/18/2017 9:10 AM CDT [facility] Patient Name: Juli Koo Procedure Date: 07/18/2017 9:10 AM Date of : 1960 Admit Type: Outpatient Age: 57 Gender: Female Attending MD: Mike Locke MD Room: [facility] CAPSULE Note Status: Finalized Patient [...] passed under direct vision.The Pediatric Colonoscope [id number] was introduced through the anus and advanced [...] 9:10 AM Procedure Code(s): --- Professional --- 83533, Colonoscopy, flexible; diagnostic, including collection of specimen(s) by brushing or washing, when performed (separateprocedure) Diagnosis Code(s): --- Professional --- Z86.010, Personal history of colonic polyps K64.8, Other hemorrhoids K57.30, Diverticulosis of large intestine without perforation orabscess without bleeding CPT copyright 2017 [employer]. All rights reserved. The codes documented in this report are preliminary and upon remittance clerk reviewmay be revised to meet current compliance requirements. 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 Insurance [facility] Advance Directives For more information, please contact: [phone] * Full Code (Latest Code Status on File) Date Activated Date Inactivated Comments 2024 3:43 AM 06/26/2024 10:15 PM * Full Code Date Activated Date Inactivated Comments 05/31/2023 7:40 PM 06/03/2023 9:50 PM * Full Code Date Activated Date Inactivated Comments 03/21/2023 8:03 PM 03/23/2023 12:55 PM * Full Code Date Activated Date Inactivated Comments 09/01/2020 7:59 AM 09/01/2020 1:49 PM * Full Code Date Activated Date Inactivated Comments 07/18/2017 8:32 AM 07/18/2017 12:39 PM Care Teams Sonography Technician Relationship Specialty Start Date End Date Yancy Guerrero MD [address] [place] [address] PCP - General 05/22/16 Lupillo Reyes MD [address] [address] Consulting Physician Orthopedic Surgery 07/26/22
--- OUTSIDE RECORDS SUMMARY | 2024-07-01 10:40 | XMS_ITS | Encounter Summary ---
Author Organization [facility] Address [address] [place] [address] Care Team Providers Care Medical Office Coordinator Name Role Phone Yancy Guerrero MD Primary Care Provider + Encounter Details Date Type Department Care Team (Latest Contact Info) Description 01/24/2008 Outpatient Historical HIS [facility] Tod Cifuentes, [address] [facility] [address] [place] [address] Other Screening Mammogram Social History Tobacco Use Types Packs/Day Years Used Date Smoking Tobacco: Never Assessed Comments Unknown Sex and Gender Information Value Date Recorded Sex Assigned at Not on file Legal Sex Female 4:27 AM MEDICARE SPECIALIST Gender Identity Not on file Sexual Orientation Not on file documented as of this encounter Plan of Treatment Not on file documented as of this encounter Procedures Procedure Name Priority Date/Time Associated Diagnosis Comments MAMMO SCREEN BILAT W OR WO CAD Routine 01/24/2008 9:19 AM MEDICARE SPECIALIST documented in this encounter Results * MAMMO DIGITAL SCREEN BILAT (01/24/2008 9:19 AM MEDICARE SPECIALIST) Anatomical Region Laterality Modality Breast Bilateral Other 01/24/2008 9:19 AM MEDICARE SPECIALIST Narrative 01/25/2008 7:03 PM MEDICARE SPECIALIST [facility] [address] [place], [place] [address] Admit Date: 01/24/2008 JULI KOO Sex: F Admit Prov: TOD DALLAS Date: 1960 Primary Care Prov: PCP, UNKNOWN CMRN: [id number] Room: [facility] SSN: [id number] IMAGING SERVICES Ordering Prov: TOD DALLAS Accession Number: [id number] Interpretation BILATERAL SCREENING DIGITAL MAMMOGRAMS WITH COMPUTER [...] [facility]K Procedure Note Olena Christy - 01/25/2008 [address] [place], [place] [address] Admit Date: 01/24/2008 HANANEJULI Sex: F Admit Prov: TOD DALLAS Date: 1960 Primary Care Prov: PCP, UNKNOWN CMRN: [id number] [id number] Ordering Prov: TOD DALLAS Interpretation [...] mammogram documented in this encounter Care Teams Medical Office Coordinator Relationship Specialty Start Date End Date Yancy Guerrero MD [address] [place] [phone] PCP - General Internal Medicine 09/22/14 documented as of this encounter
--- OUTSIDE RECORDS SUMMARY | 2024-07-01 10:40 | XMS_ITS | Encounter Summary ---
Author Organization [facility] Address [address] [place] [address] Care Team Providers Care Architecture Instructor Name Role Phone Yancy Guerrero MD Primary Care Provider + Encounter Details Date Type Department Care Team (Latest Contact Info) Description 05/02/2003 Outpatient Historical HIS [facility] Tod Cifuentes MD [address] 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
--- OUTSIDE RECORDS SUMMARY | 2024-07-01 10:40 | XMS_ITS | Clinical Summary ---
Author Organization [facility] Address [address] [place] [address] Care Team Providers Care Mandate Retail Service Merchandiser Name Role Phone Yancy Guerrero MD Primary Care Provider + [phone] Lupillo Reyes MD Unavailable [phone] Allergies No known active allergies Medications citalopram [...] anxiety/depression, AF (Xarelto), HTN, HLD transferred from [facility] for higher level of care. Had Right [...] 03/21/2023 Assessment & Plan (03/23/2023 7:20 AM MERCHANDISE MANAGER): Atenolol resumed with reasonable control Continue to hold Dyazide and losartan until outpatient follow-up HLD (hyperlipidemia) 03/21/2023 Assessment & Plan (03/22/2023 2:05 PM MERCHANDISE MANAGER): Continue atorvastatin Transaminases have normalized. Depression with anxiety 03/21/2023 Assessment & Plan (03/23/2023 7:20 AM MERCHANDISE MANAGER): Cont citalopram 40mg daily and lorazepam 0.5mg BID Resolved Problems Problem Noted Date Diagnosed Date Resolved Date Hypotension 03/21/2023 03/22/2023 Assessment & Plan (03/21/2023 8:09 PM MERCHANDISE MANAGER): - Presenting with BP 80/50s in setting of reduced PO intake and ongoing BP meds - (+)orthostatics on presentation - Hold BP meds, check orthostatics in AM - Restart meds as needed Headache 03/21/2023 03/22/2023 Assessment & Plan (03/21/2023 8:10 PM MERCHANDISE MANAGER): - Tylenol ordered; avoid NSAIDs Weakness 03/21/2023 03/23/2023 Assessment & Plan (03/22/2023 2:06 PM MERCHANDISE MANAGER): TSH and B12 within acceptable limits. Monitor symptoms as blood pressure and renal function recover Nausea 03/21/2023 03/22/2023 Assessment & Plan (03/21/2023 8:10 PM MERCHANDISE MANAGER): - Zofran ordered SUN (acute kidney injury) 03/21/2023 Assessment & Plan (03/23/2023 7:19 AM MERCHANDISE MANAGER): Creatinine improved today Check renal function and electrolytes in outpatient follow-up Continue to hold Dyazide and losartan until outpatient follow-up. Abnormal transaminases 03/21/202303/22 Assessment & Plan (03/21/2023 8:11 PM MERCHANDISE MANAGER): - Elevated in setting of recent viral infection and presumed hypovolemia - Trend in AM - if continues to be elevated consider hepatitis panel/HIV given occupation history Complete rupture of rotator cuff 07/13/2022 03/21/2023 Acute medial meniscus tear of left knee 06/25/2020 03/21/2023 Overview (06/25/2020): Added automatically from request for surgery [id number] Axillary mass, left 12/30/2016 03/21/19 24 Lipoma of forehead 11/23/2015 Pain in shoulder 11/12/2014 03/21/2023 Syncope 03/06/2013 03/21/2023 Encounters Date Type Department Care Team Description 07/01/2024 Orders Only [facility] Urology [address] [place] [phone] Chelsea Haywood MD Urinary tract infection without hematuria, site unspecified (Primary Dx) 06/28/2024 Results Follow-Up [facility] Urology [address] [place] [address] [place] [address] Chelsea Haywood MD Urine culture Urine, bladder 06/28/2024 Telephone [facility] Urology [address] [place] [address] [place] [address] Erica Moore B.A. 06/27/2024 Telephone [facility] Case Management [address] [place] [address] Dulce Maria Benites RN 06/26/2024 Orders Only [facility] Home Care Services [address] [place] [address] Laurie Tierney [facility] 06/24/2024 Telephone [facility] Cardiology [address] 8th [place] [address] [place] [address] Pat Calvo 06/24/2024 Documentation [facility] Urology [address] [place] [phone] Chelsea Haywood MD 2024 2:38 PM CDT Anesthesia Event [facility] Operating Room [address] [place] [address] Jyothi Roque MD Jablonski, Melody A., NP 2024 2:02 PM CDT - 2024 3:07 PM CDT Surgery [facility] Operating Room [address] [place] [address] Chelsea Haywood MD CYSTOSCOPY PLACEMENT URETERAL STENT 06/20/2024 10:10 PM CDT - 06/26/2024 6:14 PM CDT Hospital Encounter [facility] [address] [place] [phone] Carlos Palomares MD Baiocco, Joseph, MD Mendelsohn, Marc, MD Sepsis without acute organ dysfunction, due to unspecified organism (HCC) (Primary Dx); Kidney stone; Bradycardia; Pyelonephritis of right kidney Discharge Disposition: Discharge to home, home health skilled care 06/20/2024 Hospital Encounter [facility] ADMIT [address] [place] [address] 06/17/2024 Telephone [facility] Orthopaedic Surgery [address] [place] [address] Floor [address] [place] [phone] Cheryl Trujillo RN Intake Form 06/04/[address] [place] [phone] Cheryl Trujillo RN 04/08/2024 10:20 AM MERCHANDISE MANAGER Office Visit [facility] Orthopaedic Surgery [address] [place] [address] Floor [address] [place] [phone] Carlos Alberto Ayoub MD Impingement of right [...] drink = 0.6 oz pur e alcohol) [employer] Answer Date Recorded In the past 12 [...] week 06/02/2023 How often do you attend [facility] ch or amish services? More than 4 times per year 06/02/2023 Do you belong to any clubs o r organizations such as jainism groups, unions, fraternal or athletic groups, or [...] on file Legal 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 MERCHANDISE MANAGER Gender Identity Not on file Sexual [...] Completed 2024 Medical Devices Implanted Type Area Student Life Coordinator Device Identifier Shelf Expiration Date Model / Serial / Lot [employer] Universa 6fr 24cm Radiopaque Graduate Firm Monofilament Tether [id number] - [id number] Implanted:Qty: 1 on 2024 by Chelsea Haywood MD at [facility] Stent Right: Ureter [employer] [id number] 12/28/2026 [id number] / / [id number] [employer] Corkscrew Tigertail 5.5mm 14[address] Mechanism Vent 2 Square [id number] - [id number] Implanted:Qty: 1 on 07/26/2022 by Lupillo Reyes MD at [facility] Right: Shoulder [employer] 02/13/2024 AR-[id number] CFT / / [id number] [employer] Corkscrew Tigertail 5.5mm 14.7[address] Mechanism Vent 2 Square [id number] - [id number] Implanted:Qty: 1 on 07/26/2022 by Lupillo Reyes MD at [facility] Right: Shoulder [employer] 11/12/2024 AR-1927B CFT / / [id number] [employer] Swivelock C 4.75mm 19.1mm Closed Eyelet Vent Stover Suture Ar-[id number] - [id number] Implanted:Qty: 1 on 07/26/2022 by Lupillo Reyes MD at [facility] Right: Shoulder [employer] 02/12/2026 AR-[id number] CC / / [id number] Procedures Procedure Name Priority Date/Time Associated Diagnosis [...] CDT Kidney stone Case Notes Poc; Elian [phone] CYSTOSCOPY PLACEMENT URETERAL STENT 2024 2:43 PM CDT Kidney stone Case Notes Poc; Elian [phone] EGFR STAT 2024 1:07 PM CDT LACTATE [...] BLOOD ORDERABLES Final Res ult [facility] [place] [address] * (ABNORMAL) CBC without differential (06/25/2024 8:45 PM CDT) WBC 7.87 3.80 - 9.90 K/cumm Hgb 11.0(L) 11.9 - 15.5 g/dL [facility] Hct 32.9(L) 35.6 - 45.5 % [facility] Plt 385 150 - 400 K/cumm [facility] MPV 10.6 9.1 - 12.3 fL [facility] RBC 3.50(L) 3.90 - 5.20 M/cumm [facility] MCV 94.0 81.3 - 96.4 fL [facility] MCH 31.4 27.1 - 33.3 pg [facility] MCHC 33.4 32.3 - 35.7 g/dL [facility] RDW CV 14.4 11.1 - 14.9 % [facility] RDW SD 49.4(H) 35.7 - 48.1 fL [facility] NRBC abs 0.00 0.00 - 0.01 K/cumm [facility] Blood 06/25/2024 8:45 PM CDT 06/25/2024 9:59 PM CDT us Braeden Alcantar MD LAB BLOOD ORDERABLES Final Res ult [facility] [place] [address] * Phosphorus (06/25/2024 8:45 PM CDT) [facility] Phosphorus, pl 2.8 2.3 - 4.5 mg/dL Blood 06/25/2024 8:45 PM CDT 06/25/2024 9:43 PM CDT Braeden Alcantar MD LAB BLOOD ORDERABLES Final Res ult Performing Organization Address [facility] Co de Phone Number [facility] [place] [address] * Magnesium (06/25/2024 8:45 PM CDT) [facility] Magnesium 2.0 1.4 - 2.5 mg/dL Blood 06/25/2024 8:45 PM CDT 06/25/2024 9:43 PM CDT Braeden Alcantar MD LAB BLOOD ORDERABLES Final Res ult Performing Organization Address [facility] Co de Phone Number [facility] [place] [address] * Basic metabolic panel (06/25/2024 8:45 PM CDT) [facility] Sodium 139 135 - 145 mmol/L Potassium, pl 3.7 3.3 - 4.9 mmol/L [facility] Chloride 101 97 - 110 mmol/L [facility] CO2 30 22 - 32 mmol/L [facility] Anion gap 8 2 - 15 mmol/L [facility] BUN 11 6 - 25 mg/dL [facility] Creatinine 0.73 0.60 - 1.10 mg/dL [facility] Glucose 137 70 - 199 mg/dL [facility] Comment: Interpretive Data Fasting glucose >/= 126 [...] 2022. Calcium 9.2 8.5 - 10.3 mg/dL [facility] Blood 06/25/2024 8:45 PM CDT 06/25/2024 9:43 PM CDT us Braeden Alcantar MD LAB BLOOD ORDERABLES Final Res ult [facility] Department [place] [address] * eGFR (06/24/2024 9:08 PM CDT) eGFR [...] ORDERABLES Final Res ult Performing Organization Address [facility] de Phone Number [facility] Department [place] [address] * (ABNORMAL) CBC without differential (06/24/2024 9:08 PM CDT) WBC 8.12 3.80 - 9.90 K/cumm Hgb 10.9(L) 11.9 - 15.5 g/dL [facility] Hct 31.5(L) 35.6 - 45.5 % [facility] Plt 291 150 - 400 K/cumm [facility] MPV 11.0 9.1 - 12.3 fL [facility] RBC 3.43(L) 3.90 - 5.20 M/cumm [facility] MCV 91.8 81.3 - 96.4 fL [facility] MCH 31.8 27.1 - 33.3 pg [facility] MCHC 34.6 32.3 - 35.7 g/dL [facility] RDW CV 14.1 11.1 - 14.9 % [facility] RDW SD 47.6 35.7 - 48.1 fL [facility] NRBC abs 0.00 0.00 - 0.01 K/cumm [facility] Blood 06/24/2024 9:08 PM CDT 06/24/2024 10:07 PM CDT us Braeden Alcantar MD LAB BLOOD ORDERABLES Final Res ult Performing Organization Address City/[facility] Co de Phone Number [facility] Department [place] [address] * Phosphorus (06/24/2024 9:08 PM CDT) Pathologist [facility] Phosphorus, pl 2.9 2.3 - 4.5 mg/dL Blood 06/24/2024 9:08 PM CDT 06/24/2024 9:47 PM CDT Braeden Alcantar MD LAB BLOOD ORDERABLES Final Res ult [facility] One [facility] Department [place] [address] * Magnesium (06/24/2024 9:08 PM CDT) Pathologist [facility] Magnesium 1.8 1.4 - 2.5 mg/dL Blood 06/24/2024 9:08 PM CDT 06/24/2024 9:47 PM CDT Braeden Alcantar MD LAB BLOOD ORDERABLES Final Res ult Performing Organization Address [facility] Co de Phone Number [facility] Department [place] [address] * Basic metabolic panel (06/24/2024 9:08 PM CDT) [facility] Sodium 141 135 - 145 mmol/L Potassium, pl 3.6 3.3 - 4.9 mmol/L [facility] Chloride 103 97 - 110 mmol/L [facility] CO2 30 22 - 32 mmol/L [facility] Anion gap 8 2 - 15 mmol/L [facility] BUN 8 6 - 25 mg/dL [facility] Creatinine 0.67 0.60 - 1.10 mg/dL [facility] Glucose 155 70 - 199 mg/dL [facility] Comment: Interpretive Data Fasting glucose >/= 126 [...] 2022. Calcium 8.8 8.5 - 10.3 mg/dL [facility] Blood 06/24/2024 9:08 PM CDT 06/24/2024 9:47 PM CDT us Braeden Alcantar MD LAB BLOOD ORDERABLES Final Res ult [facility] One [facility] [place] [address] * TRANSTHORACIC ECHO (TTE) COMPLETE W DOPPLER/CF W CONTRAST (06/24/2024 2:47 PM CDT) Estimated EF 55-60 % CONS SCIMAGE EF Mod BP 68 % CONS SCIMAGE Anatomical Region Laterality Modality Ultrasound 06/24/2024 1:39 PM CDT Narrative 06/24/2024 3:12 PM CDT [facility] [place] [address] Transthoracic Echocardiographic Report Patient Name: JULI KOO J : 1960 (64y ) Gender: F Study Date: 06/24/2024 01:39:40 PM Ht(Inch): 65 Wt(Lb): 201.06 BSA: 2.05 Employment Coordinator: Renita Rosado JABARI Location: [id number] Order Provider: DONNY CARRANZA BMI: 33.45 BP: [...] Note Slava Carrion MD PhD - 06/24/2024 [facility] [place] [address] Transthoracic Echocardiographic Report Patient Name: JULI KOO J : 1960 (64y ) Gender: F Study Date: 06/24/2024 01:39:40 PM Ht(Inch): 65 Wt(Lb): 201.06 BSA: 2.05 Employment Coordinator: Renita Rosado RDCS Location: [id number] Order Provider:DONNY CARRANZA BMI: 33.45 BP: 123 [...] LAB BLOOD ORDERABLES Final Res ult [facility] One [facility] Department [place] [address] * (ABNORMAL) CBC without differential (06/23/2024 9:45 PM CDT) WBC 7.48 3.80 - 9.90 K/cumm Hgb 10.6(L) 11.9 - 15.5 g/dL [facility] Hct 30.7(L) 35.6 - 45.5 % [facility] Plt 223 150 - 400 K/cumm [facility] MPV 10.9 9.1 - 12.3 fL [facility] RBC 3.32(L) 3.90 - 5.20 M/cumm [facility] MCV 92.5 81.3 - 96.4 fL [facility] MCH 31.9 27.1 - 33.3 pg [facility] MCHC 34.5 32.3 - 35.7 g/dL [facility] RDW CV 14.1 11.1 - 14.9 % [facility] RDW SD 47.7 35.7 - 48.1 fL [facility] NRBC abs 0.00 0.00 - 0.01 K/cumm [facility] Blood 06/23/2024 9:45 PM CDT 06/23/2024 10:21 PM CDT Braeden Alcantar MD LAB BLOOD ORDERABLES Final Res ult [facility] [place] [address] * Phosphorus (06/23/2024 9:45 PM CDT) Phosphorus, pl 2.9 2.3 - 4.5 mg/dL Blood 06/23/2024 9:45 PM CDT 06/23/2024 10:22 PM CDT Braeden Alcantar MD LAB BLOOD ORDERABLES Final Res ult [facility] [place] [address] * Magnesium (06/23/2024 9:45 PM CDT) Magnesium 1.5 1.4 - 2.5 mg/dL Blood 06/23/2024 9:45 PM CDT 06/23/2024 10:22 PM CDT Braeden Alcantar MD LAB BLOOD ORDERABLES Final Res ult [facility] Department [place] [address] * (ABNORMAL) Basic metabolic panel (06/23/2024 9:45 PM CDT) [facility] Sodium 138 135 - 145 mmol/L Potassium, pl 2.8(L) 3.3 - 4.9 mmol/L [facility] Chloride 105 97 - 110 mmol/L [facility] CO2 25 22 - 32 mmol/L [facility] Anion gap 8 2 - 15 mmol/L [facility] BUN 8 6 - 25 mg/dL [facility] Creatinine 0.82 0.60 - 1.10 mg/dL [facility] Glucose 91 70 - 199 mg/dL [facility] Comment: Interpretive Data Fasting glucose >/= 126 [...] 2022. Calcium 8.4(L) 8.5 - 10.3 mg/dL [facility] Blood 06/23/2024 9:45 PM CDT 06/23/2024 10:22 PM CDT Braeden Alcantar MD LAB BLOOD ORDERABLES Final Res ult Performing Organization Address [facility]/ZIP Co de Phone Number [facility] [place] [address] * Critical Care (06/23/2024 9:12 AM CDT) Narrative Kecia Troy MD - 06/23/2024 9:12 AM CDT Kecia Troy MD 06/23/2024 4:13 PM Critical Care Performed by: Donny Carranza NP Authorized by: Donny Carranza NP CRITICAL CARE: Team: ALVARADO Shift: AM Level of Billing: Subsequent Hospital [...] plan with the patient's team and other medical/agricultural consultant staff. This time was in addition to and separate from care provided by other practitioners on this day of service. I spent time reviewing and interpreting data from bedside monitors, laboratory results, and imaging, I spent time discussing the management of this critically ill patient with consultants and the medical staff and I spent time documenting in the medical record Donny Carranza NP IN CLINIC/BEDSIDE JOSE MARR Final Result * [...] ORDERABLES Final Res ult Performing Organization Address [facility]/ZIP Co de Phone Number [facility] [place] [address] * (ABNORMAL) CBC without differential (06/22/2024 7:55 PM CDT) WBC 7.81 3.80 - 9.90 K/cumm Hgb 11.1(L) 11.9 - 15.5 g/dL [facility] Hct 33.1(L) 35.6 - 45.5 % [facility] Plt 180 150 - 400 K/cumm [facility] MPV 11.1 9.1 - 12.3 fL [facility] RBC 3.51(L) 3.90 - 5.20 M/cumm [facility] MCV 94.3 81.3 - 96.4 fL [facility] MCH 31.6 27.1 - 33.3 pg [facility] MCHC 33.5 32.3 - 35.7 g/dL [facility] RDW CV 14.3 11.1 - 14.9 % [facility] RDW SD 48.6(H) 35.7 - 48.1 fL [facility] NRBC abs 0.00 0.00 - 0.01 K/cumm [facility] Blood 06/22/2024 7:55 PM CDT 06/22/2024 9:23 PM CDT us Braeden Alcantar MD LAB BLOOD ORDERABLES Final Res ult Performing Organization Address City/[facility]/ZIP Co de Phone Number [facility] [place] [address] * (ABNORMAL) Phosphorus (06/22/2024 7:55 PM CDT) Phosphorus, pl 2.2(L) 2.3 - 4.5 mg/dL Blood 06/22/2024 7:55 PM CDT 06/22/2024 8:52 PM CDT us Braeden Alcantar MD LAB BLOOD ORDERABLES Final Res ult Performing Organization Address [facility] Co de Phone Number [facility] [place] [address] * Magnesium (06/22/2024 7:55 PM CDT) Pathologist [facility] Magnesium 2.1 1.4 - 2.5 mg/dL Blood 06/22/2024 7:55 PM CDT 06/22/2024 8:52 PM CDT Braeden Alcantar MD LAB BLOOD ORDERABLES Final Res ult Performing Organization Address [facility] de Phone Number [facility] [address] * (ABNORMAL) Basic metabolic panel (06/22/2024 7:55 PM CDT) Pathologist [facility] Sodium 136 135 - 145 mmol/L Potassium, pl 4.1 3.3 - 4.9 mmol/L [facility] Chloride 106 97 - 110 mmol/L [facility] CO2 20(L) 22 - 32 mmol/L [facility] Anion gap 10 2 - 15 mmol/L [facility] BUN 15 6 - 25 mg/dL [facility] Creatinine 0.82 0.60 - 1.10 mg/dL [facility] Glucose 146 70 - 199 mg/dL [facility] Comment: Interpretive Data Fasting glucose >/= 126 [...] 2022. Calcium 8.7 8.5 - 10.3 mg/dL [facility] Blood 06/22/2024 7:55 PM CDT 06/22/2024 8:52 PM CDT us Braeden Alcantar MD LAB BLOOD ORDERABLES Final Res ult [facility] [place] [address] * Critical Care (06/22/2024 6:39 PM CDT) [...] plan with the patient's team and other medical/agricultural consultant staff. This time was in addition to and separate from care provided by other practitioners on this day of service. I spent time reviewing and interpreting data from bedside monitors, laboratory results, and imaging and I spent time documenting in the medical record us Asmita Sarabia CRANE FOLLOWER IN CLINIC/BEDSIDE O RDERABLES Final Result * Critical Care (06/22/2024 9:48 AM CDT) Narrative Kecia Troy MD - 06/22/2024 9:48 AM CDT Kecia Troy MD 06/23/2024 4:13 PM Critical Care Performed by: Donny Carranza NP Authorized by: Donny Carranza NP CRITICAL CARE: Team: NORTH Shift: AM Level of Billing: Subsequent Hospital [...] plan with the patient's team and other medical/agricultural consultant staff. This time was in addition [...] in the medical record us Donny Carranza CRANE FOLLOWER IN CLINIC/BEDSIDE JOSE MARR Final Result * (ABNORMAL) Vancomycin level trough Draw prior to giving vancomycin dose (06/22/2024 5:01 AM CDT) [facility] Vancomycin trough 6.8(L) 10.0 - 20.0 mcg/mL Blood 06/22/2024 5:01 AM CDT 06/22/2024 5:14 AM CDT Narrative [facility] - 06/22/2024 6:29 AM CDT Draw prior to giving vancomycin dose us Lyla Jenkins CRANE [employer]LLOWER LAB BLOOD ORDERABLES Final Res ult [facility] One [facility] [place] [address] * ECG 12 lead (2024 10:48 PM CDT) Pathologist [facility] Ventricular Rate EKG/Min 56 BPM [facility] Atrial Rate 56 BPM [facility] AL-Interval (MSEC) 148 ms [facility] QRS-Interval (MSEC) 84 ms [facility] QT-Interval (MSEC) 530 ms [facility] QTc 511 ms [facility] P Lorton 42 degrees [facility] R Lorton -13 degrees [facility] T Lorton 23 degrees [facility] Diagnosis Sinus bradycardia Prolonged QT Abnormal ECG Confirmed by Abdelrahman Chowdhury MD ([id number]) on 06/24/2024 6:54:15 PM [facility] 2024 10:4 8 PM CDT 06/24/2024 6:54 PM CDT Braeden Alcantar MD ECG ORDERABLES Final Result Performing Organization Address City/[facility]/ZIP Co de Phone Number [facility] * (ABNORMAL) POC Blood Gas and Chemistries, Arterial - (2024 9:59 PM CDT) pH, Art POC 7.34(L) 7.35 - 7.45 pCO2, Art POC 33(L) 35 - 45 mmHg [facility] pO2, Art POC 83 83 - 108 mmHg [facility] Na, POC 135 135 - 145 mmol/L [facility] K POC 3.7 3.3 - 4.9 mmol/L [facility] Comment: Interpretive Data Not all point of care methods assess for hemolysis. Confirm with instrument and retest K+ if not consistent with clinical signs and symptoms. Current Interpretive Data was last revised on 2023. Cl, POC 109 97 - 110 mmol/L [facility] Ionized Ca, POC 5.02 4.50 - 5.10 mg/dL [facility] Glucose, POC 155 70 - 199 mg/dL [facility] Lactate, POC 0.6(L) 0.7 - 2.0 mmol/L [facility] SO2 (chay) arterial 98(H) 90 - 95 % [facility] Base excess, POC -7.1 mmol/L [facility] HCO3, Art POC 18(L) 20 - 30 mmol/L [facility] Hct, POC 32.0(L) 36.3 - 45.3 % [facility] Total Hb, POC 10.6(L) 11.9 - 15.5 g/dL [facility] Blood 2024 9:59 PM CDT 2024 9:59 PM CDT Braeden Alcantar MD LAB POCT ORDERABLES - DEVICE F inal Result [facility] One [facility] [place] [address] * XR Abdomen Ap 1 Vw (2024 [...] it. Electronically signed by: Kevyn Herrera M.D. us [facility] XR PROCEDURES Final Result * X-ray chest [...] PM CDT [facility] [place] [place] [facility] AL ORDERABLES Final Result [facility] [place] [address] * Hepatitis C antibody Blood (2024 5:02 PM CDT) Pathologist [facility] [place] Hep C Ab Nonreactive Nonreactive Comment:Antibodies to HCV no t detected. Does NOT exclude the possibility of recent exposure to HCV. Current interpretive data was last revised on 21 Blood 2024 5:02 PM CDT 2024 5:30 PM CDT Devon CENTENO LAB MICROBIOLOGY - GENER [place] [address] * RPR Blood (2024 5:02 PM CDT) [facility] RPR Nonreactive Nonreactive Blood 2024 5:02 PM CDT 2024 5:30 PM CDT us Devon CENT[facility] LAB MICROBIOLOGY - GENER AL ORDERABLES Final Result Performing Organization Address City/[facility]/ZIP Co de Phone Number [facility] [place] [address] * Hepatitis B Surface Antigen Blood (2024 5:02 PM CDT) Pathologist [facility] [place] HepBsAg Nonreactive Nonreactive Blood 2024 5:02 PM CDT 2024 5:30 PM CDT Devon [facility] LAB MICROBIOLOGY - GENER AL ORDERABLES Final Result Performing Organization Address City/[facility] Co de Phone Number [facility] [place] [address] * Lactate (2024 5:00 PM CDT) Lactate 0.7 0.7 - 2.0 mmol/L Blood 2024 5:00 PM CDT 2024 5:31 PM CDT Braeden Alcantar MD LAB BLOOD ORDERABLES Final Res ult Performing Organization Address City/[facility]/ZIP Co de Phone Number [facility] Department [place] [address] * (ABNORMAL) eGFR (2024 5:00 PM CDT) [...] LAB BLOOD ORDERABLES Final Res ult [facility] Department [place] [address] * (ABNORMAL) Calcium, ionized (2024 5:00 PM CDT) Calcium, Ionized 4.43(L) 4.50 - 5.10 mg/dL Blood 2024 5:00 PM CDT 2024 5:37 PM CDT Braeden Alcantar MD LAB BLOOD ORDERABLES Final Res ult Performing Organization Address City/[facility]/ZIP Co de Phone Number [facility] [place] [address] * (ABNORMAL) CBC without differential (2024 5:00 PM CDT) [facility] WBC 7.37 3.80 - 9.90 K/cumm Hgb 10.2(L) 11.9 - 15.5 g/dL [facility] Hct 29.8(L) 35.6 - 45.5 % [facility] Plt 152 150 - 400 K/cumm [facility] MPV 10.9 9.1 - 12.3 fL [facility] RBC 3.20(L) 3.90 - 5.20 M/cumm [facility] MCV 93.1 81.3 - 96.4 fL [facility] MCH 31.9 27.1 - 33.3 pg [facility] MCHC 34.2 32.3 - 35.7 g/dL [facility] RDW CV 14.2 11.1 - 14.9 % [facility] RDW SD 49.1(H) 35.7 - 48.1 fL [facility] NRBC abs 0.00 0.00 - 0.01 K/cumm [facility] Blood 2024 5:00 PM CDT 2024 5:30 PM CDT Braeden Alcantar MD LAB BLOOD ORDERABLES Final Res ult [facility] [place] [address] * Phosphorus (2024 5:00 PM CDT) Phosphorus, pl 2.6 2.3 - 4.5 mg/dL Blood 2024 5:00 PM CDT 2024 5:37 PM CDT Braeden Alcantar MD LAB BLOOD ORDERABLES Final Res ult Performing Organization Address [facility] de Phone Number [facility] Department [place] [address] * Magnesium (2024 5:00 PM CDT) Pathologist [facility] [place] Magnesium 1.7 1.4 - 2.5 mg/dL Blood 2024 5:00 PM CDT 2024 5:37 PM CDT Braeden Alcantar MD LAB BLOOD ORDERABLES Final Res ult Performing Organization Address [facility] Phone Number [facility] [place] [address] * (ABNORMAL) Blood gas, arterial (2024 5:00 PM CDT) Pathologist [facility] [place] pH, Art 7.36 7.35 - 7.45 PCO2, Arterial 34(L) 35 - 45 mmHg [facility] PO2, Arterial 125(H) 83 - 108 mmHg [facility] HCO3 Art (Calculated) 20 20 - 30 mmol/L [facility] BE, art -6 mmol/L [facility] Comment: Interpretive Data No Reference Range Established Current Interpretive Data was last revised on 2017 O2 Sat Art (Measured) 98(H) 90 - 95 % [facility] Blood 2024 5:00 PM CDT 2024 5:22 PM CDT Braeden Alcantar MD LAB BLOOD ORDERABLES Final Res ult Performing Organization Address [facility]/ZIP Co de Phone Number [facility] Department [place] [address] * (ABNORMAL) Basic metabolic panel (2024 5:00 PM CDT) [facility] Sodium 142 135 - 145 mmol/L Potassium, pl 3.1(L) 3.3 - 4.9 mmol/L [facility] Chloride 107 97 - 110 mmol/L [facility] CO2 23 22 - 32 mmol/L [facility] Anion gap 12 2 - 15 mmol/L [facility] BUN 15 6 - 25 mg/dL [facility] Creatinine 1.12(H) 0.60 - 1.10 mg/dL [facility] Glucose 126 70 - 199 mg/dL [facility] Comment: Interpretive Data Fasting glucose >/= 126 [...] 2022. Calcium 8.1(L) 8.5 - 10.3 mg/dL [facility] Blood 2024 5:00 PM CDT 2024 5:37 PM CDT us Braeden Alcantar MD LAB BLOOD ORDERABLES Final Res ult [facility] Department [place] [address] * ECG 12 lead (2024 4:29 PM CDT) [facility] Signature Ventricular Rate EKG/Min 63 BPM [facility] Atrial Rate 63 BPM [facility] AL-Interval (MSEC) 144 ms [facility] QRS-Interval (MSEC) 86 ms [facility] QT-Interval (MSEC) 498 ms [facility] QTc 509 ms [facility] P Lorton 17 degrees [facility] R [place] -22 degrees [facility] T Lorton 12 degrees [facility] Diagnosis Normal sinus rhythm Minimal voltage criteria for LVH, may be normal variant Prolonged QT Abnormal ECG Confirmed by Trenton ROSARIO [facility] ([id number]) on 06/24/2024 6:57:56 PM [facility] 2024 4:29 PM CDT 06/24/2024 6:57 PM CDT us Braeden Alcantar MD ECG ORDERABLES Final Result [facility] * (ABNORMAL) POC Blood Gas and Chemistries, Arterial - (2024 3:47 PM CDT) pH, Art POC 7.42 7.35 - 7.45 pCO2, Art POC 31(L) 35 - 45 mmHg [facility] pO2, Art POC 158(H) 83 - 108 mmHg [facility] Na, POC 139 135 - 145 mmol/L [facility] K POC 2.9(L) 3.3 - 4.9 mmol/L [facility] Comment: Interpretive Data Not all point of care methods assess for hemolysis. Confirm with instrument and retest K+ if not consistent with clinical signs and symptoms. Current Interpretive Data was last revised on 2023. Cl, POC 112(H) 97 - 110 mmol/L [facility] Ionized Ca, POC 4.44(L) 4.50 - 5.10 mg/dL [facility] Glucose, POC 116 70 - 199 mg/dL [facility] Lactate, POC 1.2 0.7 - 2.0 mmol/L [facility] SO2 (chay) arterial 100(H) 90 - 95 % [facility] Base excess, POC -3.6 mmol/L [facility] HCO3, Art POC 20 20 - 30 mmol/L [facility] Hct, POC 31.0(L) 36.3 - 45.3 % [facility] Total Hb, POC 10.3(L) 11.9 - 15.5 g/dL [facility] Blood 2024 3:47 PM CDT 2024 3:47 PM CDT Braeden Alcantar MD LAB POCT ORDERABLES - DEVICE F inal Result [facility] Department [place] [address] * FL Fluoroscopy < 1 Hour (2024 3:20 PM CDT) Narrative [facility] - 2024 3:20 PM CDT The images from this study are not interpreted by Radiology. Please refer to the physician's procedure / OR operative note. Chelsea Haywood MD IMG FLUOROSCOPY PROCEDURES Fin al Result Performing Organization Address [facility] Co de Phone Number [facility] * (ABNORMAL) Urine culture Urine, bladder (2024 [...] (clinically insignificant growth. (.) Organism ESCHERICHIA COLI [facility] Urine, bladder 2024 3: 20 PM CDT 2024 5:31 PM CDT Narrative [facility] - 06/27/2024 10:28 AM CDT URINE CULTURE Indications for Culture:->Urology patient Testing performed by [facility] ([phone]) Organism Antibiotic Method Susceptibility Escherichia coli Ampicillin [...] INTERPRETATION Resistant Escherichia coli Fosfomycin INTERPRETATION Susceptible us Chelsea Haywood MD LAB MICROBIOLOGY - GENERAL ORD ERABLES Edited Result - Final [facility] Department [place] [address] * Lactate (2024 1:07 PM CDT) Lactate 0.8 0.7 - 2.0 mmol/L Blood 2024 1:07 PM CDT 2024 1:40 PM CDT us Lyla Jenkins NP LAB BLOOD ORDERABLES Final Res ult Performing Organization Address [facility] Co de Phone Number [facility] [place] [address] * (ABNORMAL) eGFR (2024 1:07 PM CDT) eGFR 50(L) >=60 mL/min/1. 73 m2 Comment: [...] 1:07 PM CDT 2024 2:06 PM CDT Lyla Jenkins CRANE [facility]LLOWER LAB BLOOD ORDERABLES Final Res ult Performing Organization Address City/[facility]/ZIP Co de Phone Number [facility] Department [place] [address] * (ABNORMAL) CBC without differential (2024 1:07 PM CDT) WBC 7.70 3.80 - 9.90 K/cumm Hgb 10.6(L) 11.9 - 15.5 g/dL [facility] Hct 30.6(L) 35.6 - 45.5 % [facility] Plt 161 150 - 400 K/cumm [facility] MPV 11.0 9.1 - 12.3 fL [facility] RBC 3.31(L) 3.90 - 5.20 M/cumm [facility] MCV 92.4 81.3 - 96.4 fL [facility] MCH 32.0 27.1 - 33.3 pg [facility] MCHC 34.6 32.3 - 35.7 g/dL [facility] RDW CV 14.3 11.1 - 14.9 % [facility] RDW SD 49.0(H) 35.7 - 48.1 fL [facility] NRBC abs 0.00 0.00 - 0.01 K/cumm [facility] Blood 2024 1:07 PM CDT 2024 2:06 PM CDT Lyla Jenkins NP LAB BLOOD ORDERABLES Final Res ult Performing Organization Address City/[facility]/ZIP Co de Phone Number [facility] Department [place] [address] * (ABNORMAL) Basic metabolic panel (2024 1:07 PM CDT) Sodium 139 135 - 145 mmol/L Potassium, pl 3.3 3.3 - 4.9 mmol/L [facility] Chloride 108 97 - 110 mmol/L [facility] CO2 21(L) 22 - 32 mmol/L [facility] Anion gap 10 2 - 15 mmol/L [facility] BUN 16 6 - 25 mg/dL [facility] Creatinine 1.21(H) 0.60 - 1.10 mg/dL [facility] Glucose 100 70 - 199 mg/dL [facility] Comment: Interpretive Data Fasting glucose >/= 126 [...] 2022. Calcium 7.8(L) 8.5 - 10.3 mg/dL [facility] Blood 2024 1:07 PM CDT 2024 2:06 PM CDT us Lyla Jenkins [facility] LAB BLOOD ORDERABLES Final Res ult [facility] Department [place] [address] * Urine culture Urine, clean voided (2024 8:45 AM CDT) Report Final Report: Less than 100,000 colonies/mL (clinically insignificant growth based on current clinical standards) Organism (CLINICALLY INSIGNIFICANT GROWTH [facility] Urine, clean voided 2024 8:45 AM CDT 2024 9:43 AM CDT Narrative [facility] - 06/22/2024 12:09 PM CDT Indications for Culture:->Recent positive UA Testing performed by [facility] ([phone]) Braeden Alcantar MD LAB MICROBIOLOGY - GENERAL ORD ERABLES Final Result Performing Organization Address [facility] Co de Phone Number [facility] One [facility] Department [place] [address] * (ABNORMAL) Urinalysis reflex to microscopic (2024 8:32 AM CDT) Color, ur Yellow Yellow Clarity, ur Turbid(A) Clear [facility] Specific gravity, ur 1.017 1.003 - 1.030 [facility] pH, urine 6.0 [facility] Comment: Interpretive Data U rine pH is affected by diet, medications, systemic acid-base disturbances, and renal tubular function. pH may affect urinary stone formation. For example, urine pH below 6.0 may help reduce the tendency for calcium phosphate stones and pH greater than 6.0 may reduce the tendency for uric acid stone formation. Source: [facility] Current Interpretive Data was last revised on 2017 Protein, ur ql 2+(A) Negative [facility] Glucose, ur ql Negative Negative [facility] Ketones, ur 1+(A) Negative [facility] Bilirubin, ur Negative Negative [facility] Blood, ur 1+(A) Negative [facility] Urobilinogen, ur <2.0 <2.0 mg/dL [facility] Nitrite, ur Positive(A) Negative [facility] Leukocyte esterase, ur 3+(A) Negative [facility] UA reflex comment Reflex to microscopic UA will be performed. [facility] Urine 2024 8:32 AM CDT 2024 9:19 AM CDT Braeden Alcantar MD LAB URINE ORDERABLES Final Res ult Performing Organization Address [facility]/State/ZIP Co de Phone Number [facility] Department [place] [address] * (ABNORMAL) Urinalysis, microscopic only (2024 8:32 AM CDT) WBC, ur >50(A) 0 - 5 /HPF RBC, ur 6-10(A) 0 - 2 /HPF [facility] Epithelial cells, squamous, ur 1-5 0 - 5 /HPF [facility] Bacteria, ur 4+(A) [facility] Urine 2024 8:32 AM CDT 2024 9:19 AM CDT us Braeden Alcantar MD LAB URINE ORDERABLES Final Res ult Performing Organization Address City/State/[facility] Co de Phone Number [facility] [place] [address] * US Kidney Complete (2024 12:33 AM [...] it. Electronically signed by: Yojana Perez M.D. us Miko Edwards MD IMG US PROCEDURES Final Result * Check Sample (06/20/2024 11:13 PM CDT) ABO Rh A Negative [facility] HCLL OTHER 06/20/2024 11:1 3 PM CDT 06/20/2024 11:45 PM CDT us Carlos Palomares MD LAB BLOOD ORDERABLES Shanell l Result [facility] [place] [address] [facility] * XR Chest 1 Vw Portable (06/20/2024 [...] images may or may not represent the [place] source data set and thus may contain [...] IMAGING STUDY STUDY INITIALLY PERFORMED: 06/20/2024 at [facility]. TYPE OF STUDY: Multiple CT images of [...] IMAGING STUDY STUDY INITIALLY PERFORMED: 06/20/2024 at [facility]. TYPE OF STUDY: Multiple CT images of [...] images may or may not represent the [place] source data set and thus may contain [...] Outside Reference (06/20/2024 10:49 PM CDT) Impressions [facility] - 06/20/2024 10:49 PM CDT These images are for Reference purposes only and have not been reviewed by [facility] Radiology. There will be no report generated by a [facility] Radiologist. Narrative [facility] - 06/20/2024 10:49 PM CDT EXAMINATION: Images [...] evidence of acuteischemia. Carlos Palomares MD 06/20/24 2248 Miko Edwards MD ECG ORDERABLES Final R esult Performing Organization Address City/[facility]/ZIP Co de Phone Number [facility] * Sepsis Lactate w/ Reflex (06/20/2024 10:38 PM CDT) [facility] Sepsis Lactate 1.1 0.7 - 2.0 mmol/L Blood 06/20/2024 10:3 8 PM CDT 06/20/2024 10:42 PM CDT Carlos Palomares MD LAB BLOOD ORDERABLES Shanell l Result Performing Organization Address [facility] de Phone Number [facility] Department [place] [address] * POCT glucose (06/20/2024 10:27 PM CDT) [facility] Glucose, POC 162 70 - 199 mg/dL Blood 06/20/2024 10:2 7 PM CDT 06/20/2024 10:27 PM CDT Carlos Palomares MD LAB POCT ORDERABLES - DEV ICE Final Result Performing Organization Address [facility] de Phone Number [facility] Department [place] [address] * (ABNORMAL) eGFR (06/20/2024 10:24 PM CDT) [facility] eGFR 37(L) >=60 mL/min/1. 73 m2 Comment: [...] MD LAB BLOOD ORDERABLES Fi nal Result [facility] One [facility] Department [place] [address] * (ABNORMAL) Differential, auto (06/20/2024 10:24 PM CDT) Neutrophil abs 8.00(H) 1.50 - 6.50 K/cumm Imm gran abs 0.12(H) 0.00 - 0.10 K/cumm [facility] Lymphocyte abs 1.11 0.80 - 3.30 K/cumm [facility] Monocyte abs 1.06(H) 0.20 - 0.80 K/cumm [facility] Eosinophil abs 0.00 0.00 - 0.50 K/cumm [facility] Basophil abs 0.04 0.00 - 0.10 K/cumm [facility] Neutrophil pct 77.4 % [facility] Comment: Interpretive Data Percent cell count reference ranges are not reported, since discordance with absolute values may lead to misinterpretation of CBC data. Current Interpretive Data was last revised on 2017. Imm gran pct 1.2 % [facility] Comment: Interpretive Data Percent cell count reference ranges are not reported, since discordance with absolute values may lead to misinterpretation of CBC data. Current Interpretive Data was last revised on 2017. Lymphocyte pct 10.7 % [facility] Comment: Interpretive Data Percent cell count reference ranges are not reported, since discordance with absolute values may lead to misinterpretation of CBC data. Current Interpretive Data was last revised on 2017. Monocyte pct 10.3 % [facility] Comment: Interpretive Data Percent cell count reference ranges are not reported, since discordance with absolute values may lead to misinterpretation of CBC data. Current Interpretive Data was last revised on 2017. Eosinophil pct 0.0 % [facility] Comment: Interpretive Data Percent cell count reference ranges are not reported, since discordance with absolute values may lead to misinterpretation of CBC data. Current Interpretive Data was last revised on 2017. Basophil pct 0.4 % [facility] Comment: Interpretive Data Percent cell count reference ranges are not reported, since discordance with absolute values may lead to misinterpretation of CBC data. Current Interpretive Data was last revised on 2017. Blood 06/20/2024 10:2 4 PM CDT 06/20/2024 10:35 PM CDT Miko Edwards MD LAB BLOOD ORDERABLES Fi nal Result [facility] One [facility] Department [place] [address] * Respiratory pathogen panel Nasopharyngeal (06/20/2024 10:24 PM CDT) Pathologist [facility] [place] Influenza A RNA Not Detected Not Detected Influenza B RNA Not Detected Not Detected [facility] RSV RNA Not Detected Not Detected [facility] COVID-19 RNA Not Detected Not Detected [facility] Coronavirus 229E RNA Not Detected Not Detected [facility] Coronavirus HKU1 RNA Not Detected Not Detected [facility] Coronavirus NL63 RNA Not Detected Not Detected [facility] Coronavirus OC43 RNA Not Detected Not Detected [facility] Adenovirus DNA Not Detected Not Detected [facility] Metapneumovirus RNA Not Detected Not Detected [facility] Rhinovirus/Enterov irus RNA Not Detected Not Detected [facility] Parainfluenza 1 RNA Not Detected Not Detected [facility] Parainfluenza 2 RNA Not Detected Not Detected [facility] Parainfluenza 3 RNA Not Detected Not Detected [facility] Parainfluenza 4 RNA Not Detected Not Detected [facility] B. pertussis DNA Not Detected Not Detected [facility] B. parapertussis DNA Not Detected Not Detected [facility] C. pneumoniae DNA Not Detected Not Detected [facility] M. pneumoniae DNA Not Detected Not Detected [facility] Nasopharyngeal 06/20/2024 10 :24 PM CDT 06/20/2024 10:40 PM CDT Narrative [facility] - 06/20/2024 11:35 PM CDT Is the Patient experiencing symptoms consistent with COVID?->No Surveillance testing for transplant patient?->No Interpretive Data The [employer] FilmArray Respiratory Panel (RP2.1) assay is a [...] assay has FDA clearance for testing of CRANE FOLLOWER swabs. The performance of additional specimen types has been assessed by the performing laboratory. The performance characteristics of this assay have been determined by [facility] Infectious Disease [facility]. Current interpretive data was last revised on 21. Miko Edwards MD LAB MICROBIOLOGY - [facility] ORDERABLES Final Result [facility] One [facility] Department [place] [address] * (ABNORMAL) CBC with auto differential (06/20/2024 10:24 PM CDT) Pathologist [facility] [place] WBC 10.33(H) 3.80 - 9.90 K/cumm Hgb 10.6(L) 11.9 - 15.5 g/dL [facility] Hct 31.6(L) 35.6 - 45.5 % [facility] Plt 167 150 - 400 K/cumm [facility] MPV 10.3 9.1 - 12.3 fL [facility] RBC 3.37(L) 3.90 - 5.20 M/cumm [facility] MCV 93.8 81.3 - 96.4 fL [facility] MCH 31.5 27.1 - 33.3 pg [facility] MCHC 33.5 32.3 - 35.7 g/dL [facility] RDW CV 14.0 11.1 - 14.9 % [facility] RDW SD 47.5 35.7 - 48.1 fL [facility] NRBC abs 0.02(H) 0.00 - 0.01 K/cumm [facility] Blood 06/20/2024 10:2 4 PM CDT 06/20/2024 10:35 PM CDT Miko Edwards MD LAB BLOOD ORDERABLES Fi nal Result [facility] [place] [address] * Blood culture Blood Peripheral (06/20/2024 10:24 PM CDT) Report Final Report: No growth Blood (Peripheral) 06/20/2024 10:24 PM CDT 06/20/2024 10:37 PM CDT Narrative [facility] - 06/25/2024 7:01 AM CDT From a [...] performance characteristics have been verified by the [facility]biology [facility]. For questions about this culture, contact the Microbiology Laboratory at [phone]. Interpretive data was last revised on 23. Miko Edwards MD LAB MICROBIOLOGY - GENE RAL ORDERABLES Final Result Performing Organization Address City/[facility]/ZIP Co de Phone Number [facility] Eileen [facility] [place] [address] * Blood culture Blood Peripheral (06/20/2024 10:24 PM CDT) Report Final Report: No growth Blood (Peripheral) 06/20/2024 10:24 PM CDT 06/20/2024 10:38 PM CDT Narrative [facility] - 06/25/2024 7:01 AM CDT Draw Blood [...] performance characteristics have been verified by the [facility] Microbiology Laboratory. For questions about this culture, contact the Microbiology Laboratory at [phone]. Interpretive data was last revised on 23. Miko Edwards MD LAB MICROBIOLOGY - [facility] ORDERABLES Final Result ALMA ARVIZU [facility] [place] [address] * aPTT (06/20/2024 10:24 PM CDT) aPTT 28 28 - 38 sec Comment: Interpretive Data Heparin therapeutic range: 66.0 - 100.0 seconds. Range based on correlation with therapeutic heparin activity range of 0.3 - 0.7 Units/mL. Current interpretive data was last revised on 2022. Blood 06/20/2024 10:2 4 PM CDT 06/20/2024 10:38 PM CDT Result [facility] Miko Edwards MD LAB BLOOD ORDERABLES Fi nal Result Performing Organization Address [facility] de Phone Number [facility] [place] [address] * (ABNORMAL) Protime-INR (06/20/2024 10:24 PM CDT) PT 13.5(H) 9.7 - 13.0 sec INR 1.24(H) 0.90 - 1.20 [facility] Comment: Interpretive data Oral anticoagulant therapeutic ranges: Venous thromboembolism prophylaxis or treatment: 2.0-3.0 CARDIOLOGY Standard range: 2.0-3.0 High-intensity range: 2.5-3.5 Refer to indication-specific guidelines for appropriate target ranges for prosthetic heart valve replacement. Current interpretive data was last revised on 2019. Blood 06/20/2024 10:2 4 PM CDT 06/20/2024 10:38 PM CDT Result [facility] Miko Edwards MD LAB BLOOD ORDERABLES Fi nal Result Performing Organization Address [facility] de Phone Number [facility] Department [place] [address] * Type and screen (06/20/2024 10:24 PM CDT) ABO Rh A Negative Jeanette, indirect Negative [facility] Blood 06/20/2024 10:2 4 PM CDT 06/20/2024 10:42 PM CDT Narrative [facility] - 06/20/2024 11:43 PM CDT Has the patient had Daratumumab or Isatuximab in the past 6 months?->Unknown Miko Edwards MD LAB BLOOD BANK TEST ORD ERABLES Final Result [facility] [place] [address] * (ABNORMAL) Basic metabolic panel (06/20/2024 10:24 PM CDT) Sodium 138 135 - 145 mmol/L Potassium, pl 3.3 3.3 - 4.9 mmol/L [facility] Chloride 106 97 - 110 mmol/L [facility] CO2 22 22 - 32 mmol/L [facility] Anion gap 10 2 - 15 mmol/L [facility] BUN 19 6 - 25 mg/dL [facility] Creatinine 1.56(H) 0.60 - 1.10 mg/dL [facility] Glucose 134 70 - 199 mg/dL [facility] Comment: Interpretive Data Fasting glucose >/= 126 [...] 2022. Calcium 7.2(L) 8.5 - 10.3 mg/dL [facility] Blood 06/20/2024 10:2 4 PM CDT 06/20/2024 10:35 PM CDT Miko Edwards MD LAB BLOOD ORDERABLES Fi nal Result [facility] [place] [address] * COLONOSCOPY (07/18/2017 9:10 AM CDT) Anatomical Region Laterality Modality Other Narrative Procedure Note Mike Locke MD - 07/18/2017 9:10 AM CDT [facility] Patient Name: Juli Koo Procedure Date: 07/18/2017 9:10 AM Date of : 1960 Admit Type: Outpatient Age: 57 Gender: Female Attending MD: Mike Locke MD Room: [facility] ENDOSCOPY CAPSULE Note Status: Finalized Patient Profile: [...] passed under direct vision.The Pediatric Colonoscope PCF-H190L [id number] was introduced through the anus and advanced [...] 9:10 AM Procedure Code(s): --- Professional --- 27008, Colonoscopy, flexible; diagnostic, including collection of specimen(s) by brushing or washing, when performed (separateprocedure) Diagnosis Code(s): --- Professional --- Z86.010, Personal history of colonic polyps K64.8, Other hemorrhoids K57.30, Diverticulosis of large intestine without perforation orabscess without bleeding CPT copyright 2017 [employer]. All rights reserved. The codes documented in this report are preliminary and upon field clinical engineer reviewmay be revised to meet current compliance requirements. 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 Insurance [facility] WORKERS COMPENSATION [facility] Advance Directives For more information, please contact: [phone] * Full Code (Latest Code Status on [...] 8:32 AM 07/18/2017 12:39 PM Care Teams Mandate Retail Service Merchandiser Relationship Specialty Start Date End Date Yancy Guerrero MD [address] [place], [place] [id number] PCP - General 05/22/16 Lupillo Reyes MD [address] [facility] [address] [place] [address] Consulting Physician Orthopedic Surgery 07/26/22
--- OUTSIDE RECORDS SUMMARY | 2024-07-01 10:40 | XMS_ITS | Encounter Summary ---
Author Organization [facility] Address [address] [place] [address] Care Team Providers Care Caddie Supervisor Name Role Phone Yancy Guerrero MD Primary Care Provider + Encounter Details Date Type Department Care Team (Latest Contact Info) Description 05/10/2004 Outpatient Historical HIS 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
--- OUTSIDE RECORDS SUMMARY | 2024-07-01 10:40 | XMS_ITS | Encounter Summary ---
Author Organization [facility] Address [address] [place] [address] Phone Care Team Providers Care Skills Auditor Name Role Phone Yancy Guerrero MD Primary Care Provider + [phone] Lupillo Reyes MD Unavailable [phone] Encounter Details Date Type Department Care Team (Late st Contact Info) Description 06/24/2024 Telephone [facility] Cardiology [address] [facility] Advanced Medicine 8th [place] [address] [place] [address] Pat Calvo Social History Tobacco Use Types Packs/Day Years Used Date Smoking Tobacco: Every Day Cigarettes 0.2 2 Smokeless Tobacco: Never Comments:Two packs per week for last 2 years Alcohol Use Standard Drinks/Week Comments Yes 0 (1 standard drink = 0.6 oz pur e alcohol) socially [facility] Utilities Answer Date Recorded In the past 12 months has [employer], gas, oil, or water [employer] threatened to shut off services in your [...] week 06/02/2023 How often do you attend [facility] or jewish services? 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
[2024-07-01 11:06] LABS: Alanine Aminotransferase 41 U/L (14-59); Albumin Level 3.2 g/dL (3.4-5.0); Alkaline Phosphatase 77 U/L (46-116); Anion Gap 12 mmol/L (4-12); Aspartate Amino Transferase 41 U/L (15-37); Bilirubin,Total 0.4 mg/dL (0.00-1.00); Blood Urea Nitrogen 4 mg/dL (7-18); Calcium 10.1 mg/dL (8.5-10.1); Carbon Dioxide 28 mmol/L (21-32); Chloride 101 mmol/L (98-108); Estimated Glomerular Filt Rate > 60; Glucose 134 mg/dL (70-99); Osmolality Calculated 290 mOsm/kg (285-295); Potassium 3.7 mmol/L (3.5-5.1); Sodium 141 mmol/L (136-145); Total Protein 7.6 g/dL (6.4-8.2)
== END 2024-07-01 10:04 | disposition home or self-care (01) ==
LOC: CHSLAB 10:05
PROVIDERS: PCP Internal Medicine; Visit Provider Internal Medicine
DX: A41.9 Sepsis, unspecified organism (principal); Z79.899 Other long term (current) drug therapy
CPT/HCPCS: 36415; 80053; 85025

== ENCOUNTER 2024-07-12 20:52 | Observation (INO) | payer OTHER, SELFPAY ==
[2024-07-12] VITALS (12 sets, daily range): BP systolic 89–105; BP diastolic 46–72; PULSE 74–86; RESP 18–20; TEMP 36.8; O2SAT 87–93; BMI 27.5
--- NOTE | ~2024-07-12 | XR_ITS ---
XR chest 1V portable Ordering provider: Charles Ramirez MD History: 64 years Female with . sepsis . Comparison: June 20, 2024 FINDINGS: MEDIASTINUM: The cardiac silhouette is not enlarged. LUNGS: No infiltrates, effusions or pneumothorax. Elevation of the left hemidiaphragm. OTHER: No free air under the diaphragm. Degenerative changes of the spine. IMPRESSION: No acute cardiopulmonary pathology. Reviewed, dictated and finalized at location A.
--- NOTE | ~2024-07-12 | CT_ITS ---
CT brain wo con Ordering provider: Charles Ramirez MD History: 64 years Female with . ams,LETHARGIC,ETOH,CONFUSION,?SEPSIS . Comparison: June 21, 2019 5V Technique: CT of the head without contrast. Radiation reduction technique utilized. The dose-length p roduct was 605.33 mGy-cm. FINDINGS: BRAIN PARENCHYMA AND CSF SPACES: Mild leukoaraiosis and diffuse cortical atrophy. Mild atheromatous d isease. No midline shift, mass effect or hemorrhage. The brain parenchyma and CSF spaces are otherwi se normal. VISUALIZED PARANASAL SINUSES: Well aerated. MASTOIDS: Well aerated. BONES: The bones appear intact. SOFT TISSUES: Visualized nasopharynx is normal. Superficial soft tissues are normal. IMPRESSION: No acute intracranial findings. Reviewed, dictated and finalized at location A.
--- OUTSIDE RECORDS SUMMARY | 2024-07-12 20:54 | XMS_ITS | Encounter Summary ---
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 Gender Identity Not on file Sexual Orientation Not on file documented as of this encounter Plan of Treatment Upcoming Encounters Date Type Department Care Team (Late st Contact Info) Description 07/19/2024 12:00 PM CDT Hospital Encounter [facility] Operating Room [address] [place] [address] Rob Kline MD [address] [place] [address] 07/19/2024 12:00 PM CDT Anesthesia Event [facility] Operating Room [address] [place] [address] Nabila Martinez NP [address] [place] [address] [place] [address] 07/19/2024 12:00 PM CDT - 07/19/2024 1:00 PM CDT Surgery [facility] Operating Room [address] [place] [address] Rob Kline MD [address] [facility] [place] [address] URETEROSCOPY Scheduled Procedures Name Priority Associated Diagnoses Date/Ti me URETEROSCOPY Right kidney stone 07/19/2024 12:00 PM CDT CYSTOSCOPY PLACEMENT URETERA L STENT Right kidney stone 07/19/2024 12:00 PM CDT REMOVAL URETERAL STONE Right kidney stone 07/19/2024 12:00 PM CDT documented as of this encounter Procedures Procedure [...] documented as of this encounter Care Teams Welt Insole Channeler Relationship Specialty Start Date End Date Yancy Guerrero MD [address] [place] [address] PCP - General 05/22/16 Lupillo Reyes MD [address] [address] Consulting Physician Orthopedic Surgery 07/26/22 documented as of this encounter
--- OUTSIDE RECORDS SUMMARY | 2024-07-12 20:54 | XMS_ITS | Encounter Summary ---
Author Organization [facility] [employer] [facility] Address [address] [place] [address] Phone Care Team Providers Care Acid Plant Helper Name Role Phone Yancy Guerrero MD Primary Care Provider + [phone] Lupillo Reyes MD Unavailable [phone] Encounter Details Date Type Department Care Team (Late st Contact Info) Description 06/28/2024 Results Follow-Up [facility] ([facility] - [facility] Urology [address] [facility] Advanced Medicine 11th [place] [address] [place] [address] Chelsea Haywood MD [address] [facility] [address] [place] [address] Urine culture Urine, bladder Social History Tobacco Use Types Packs/Day Years Used Date Smoking Tobacco: Every Day Cigarettes 0.2 2 Smokeless Tobacco: Never Comments:Two packs per week for last 2 years Alcohol Use Standard Drinks/Week Comments Yes 0 (1 standard drink = 0.6 oz pur e alcohol) socially [facility] Utilities Answer Date Recorded In the past 12 months has [employer], gas, oil, or water [employer] threatened to shut off services in your [...] often do you attend chur ch or yarsanism services? More than 4 times per year 06/02/2023 Do you belong to any clubs o r organizations such as religion groups, unions, fraternal or athletic groups, or [...] place to sleep or slept in a [place] [facility] [place] facility (including now)? No 06/02/2023 Personal Safety Answer Date Recorded Have you ever been in or are you currently in a harmful physical or emotional relationship or is someone making you feel afraid or unsafe? 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 Gender Identity Not on file Sexual Orientation Not on file documented as of this encounter Plan of Treatment Upcoming Encounters Date Type Department Care Team (Late st Contact Info) Description 07/19/2024 12:00 PM CDT Hospital Encounter [facility] Operating Room [address] [place] [address] Rob Kline MD [address] [facility] [place] [address] 07/19/2024 12:00 PM CDT Anesthesia Event [facility] Operating Room [address] [place] [address] Nabila Martinez, YENI [address] [place] [address] [place] [address] 07/19/2024 12:00 PM CDT - 07/19/2024 1:00 PM CDT Surgery [facility] Operating Room [address] [place] [address] Rob Kline MD [address] [facility] [place] [address] URETEROSCOPY Scheduled Procedures Name Priority Associated Diagnoses Date/Ti me URETEROSCOPY Right kidney stone 07/19/2024 12:00 PM CDT CYSTOSCOPY PLACEMENT URETERA L STENT Right kidney stone 07/19/2024 12:00 PM CDT REMOVAL URETERAL STONE Right kidney stone 07/19/2024 12:00 PM CDT documented as of this encounter Visit Diagnoses Not on filedocumented in this encounter Additional Health Concerns Infection Onset Date Last Indicated Resolved Time MDR gram neg/ESBL 2024 2024 documented as of this encounter Care Teams Acid Plant Helper Relationship Specialty Start Date End Date Yancy Guerrero MD [address] [place] [address] PCP - General 05/22/16 Lupillo Reyes MD [address] [address] Consulting Physician Orthopedic Surgery 07/26/22 documented as of this encounter
--- OUTSIDE RECORDS SUMMARY | 2024-07-12 20:54 | XMS_ITS | Encounter Summary ---
Author Organization [facility] [employer] [facility] Address [address] [place] [address] Phone Care Team Providers Care Catalyst Operator Name Role Phone Yancy Guerrero MD Primary Care Provider + [phone] Lupillo Reyes MD Unavailable [phone] Encounter Details Date Type Department Care Team (Latest Contact Info) Description 04/13/2023 Orders Only [facility] Wendy Choudhary, ISAIAS [address] 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 Gender Identity Not on file Sexual Orientation Not on file documented as of this encounter Plan of Treatment Upcoming Encounters Date Type Department Care Team (Late st Contact Info) Description 07/19/2024 12:00 PM CDT Hospital Encounter [facility] Operating Room [address] [place] [address] Rbo Kline MD [address] [place] [address] 07/19/2024 12:00 PM CDT Anesthesia Event [facility] Operating Room [address] [place] [address] Nabila Martinez NP [address] [place] [address] [place] [address] 07/19/2024 12:00 PM CDT - 07/19/2024 1:00 PM CDT Surgery [facility] Operating Room [address] [place] [address] Rob Kline MD [address] [facility] [place] [place] [address] URETEROSCOPY Scheduled Procedures Name Priority Associated Diagnoses [...] documented as of this encounter Care Teams Catalyst Operator Relationship Specialty Start Date End Date Yancy Guerrero MD [address] [place] [address] PCP - General 05/22/16 Lupillo Reyes MD [address] [address] Consulting Physician Orthopedic Surgery 07/26/22 documented as of this encounter
--- OUTSIDE RECORDS SUMMARY | 2024-07-12 20:54 | XMS_ITS | Encounter Summary ---
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 Gender Identity Not on file Sexual Orientation Not on file documented as of this encounter Plan of Treatment Upcoming Encounters Date Type Department Care Team (Late st Contact Info) Description 07/19/2024 12:00 PM CDT Hospital Encounter [facility] Operating Room [address] [place] [address] Rob Kline MD [address] [place] [address] 07/19/2024 12:00 PM CDT Anesthesia Event [facility] Operating Room [address] [place] [address] Nabila Martinez NP [address] [place] [address] [place] [address] 07/19/2024 12:00 PM CDT - 07/19/2024 1:00 PM CDT Surgery [facility] Operating Room [address] [place] [address] Rob Kline MD [address] [facility] [place] [address] URETEROSCOPY Scheduled Procedures Name Priority Associated Diagnoses [...] documented as of this encounter Care Teams Supervisor Press Room Relationship Specialty Start Date End Date Yancy Guerrero MD [address] [place] [address] PCP - General 05/22/16 Lupillo Reyes MD [address] [address] Consulting Physician Orthopedic Surgery 07/26/22 documented as of this encounter
--- OUTSIDE RECORDS SUMMARY | 2024-07-12 20:54 | XMS_ITS | Encounter Summary ---
Author Organization [facility] [employer] [facility] Address [address] [place] [address] Phone Care Team Providers Care Senior Php Software Developer Name Role Phone Yancy Guerrero MD Primary Care Provider + [phone] Lupillo Reyes MD Unavailable [phone] Encounter Details Date Type Department Care Team (Latest Contact Info) Description 03/06/2023 Orders Only [facility] Wendy Choudhary, ISAIAS [address] [facility] [address] [place], [place] [phone] Social History Tobacco Use Types Packs/Day Years [...] on file Legal 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 REGISTERED MIDWIFE Gender Identity Not on file Sexual Orientation Not on file documented as of this encounter Plan of Treatment Upcoming Encounters Date Type Department Care Team (Late st Contact Info) Description 07/19/2024 12:00 PM CDT Hospital Encounter [facility] Operating Room [address] [place] [address] Rob Kline MD [address] [place] [address] 07/19/2024 12:00 PM CDT Anesthesia Event [facility] Operating Room [address] [place] [address] Nabila Martinez, YENI [address] [place] [address] [place] [address] 07/19/2024 12:00 PM CDT - 07/19/2024 1:00 PM CDT Surgery [facility] Operating Room [address] [place] [address] Rob Kline MD [address] [facility] [place] [address] URETEROSCOPY Scheduled Procedures Name Priority Associated Diagnoses [...] documented as of this encounter Care Teams Senior Php Software Developer Relationship Specialty Start Date End Date Yancy Guerrero MD [address] [place] [address] PCP - General 05/22/16 Lupillo Reyes MD [address] [address] Consulting Physician Orthopedic Surgery 07/26/22 documented as of this encounter
--- OUTSIDE RECORDS SUMMARY | 2024-07-12 20:54 | XMS_ITS | Encounter Summary ---
Author Organization 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 Gender Identity Not on file Sexual Orientation Not on file documented as of this encounter Plan of Treatment Upcoming Encounters Date Type Department Care Team (Late st Contact Info) Description 07/19/2024 12:00 PM CDT Hospital Encounter [facility] Operating Room [address] [place] [address] Rob Kline MD [address] [place] [address] 07/19/2024 12:00 PM CDT Anesthesia Event [facility] Operating Room [address] [place] [address] Nabila Martinez, YENI [address] [place] [address] [place] [address] 07/19/2024 12:00 PM CDT - 07/19/2024 1:00 PM CDT Surgery [facility] Operating Room [address] [place] [address] Rob Kline MD [address] [facility] [place] [address] URETEROSCOPY Scheduled Procedures Name Priority Associated Diagnoses [...] documented as of this encounter Care Teams Prosthetics Lab Technician Relationship Specialty Start Date End Date Yancy Guerrero MD [address] [place] [address] PCP - General 05/22/16 Lupillo Reyes MD [address] [address] Consulting Physician Orthopedic Surgery 07/26/22 documented as of this encounter
--- OUTSIDE RECORDS SUMMARY | 2024-07-12 20:54 | XMS_ITS | Encounter Summary ---
Author Organization [facility] [employer] of [facility] Address [address] [place] [address] Phone Care Team Providers Care Chainstitch Felled Seam Operator Name Role Phone Yancy Guerrero MD Primary Care Provider + [phone] Lupillo Reyes MD Unavailable [phone] Encounter Details Date Type Department Care Team (Latest Contact Info) Description 04/28/2023 Orders Only [facility] Wendy Choudhary, ISAIAS [address] [facility] [address] [place], [place] [id number] Social History Tobacco Use Types Packs/Day Years [...] on file Legal 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 Gender Identity Not on file Sexual Orientation Not on file documented as of this encounter Plan of Treatment Upcoming Encounters Date Type Department Care Team (Late st Contact Info) Description 07/19/2024 12:00 PM CDT Hospital Encounter [facility] Operating Room [address] [place] [address] Rob Kline MD [address] [place] [address] 07/19/2024 12:00 PM CDT Anesthesia Event [facility] Operating Room [address] [place] [address] Nabila Martinez NP [address] [place] [address] [place] [address] 07/19/2024 12:00 PM CDT - 07/19/2024 1:00 PM CDT Surgery [facility] Operating Room [address] [place] [address] Rob Kline MD [address] [facility] [place] [address] URETEROSCOPY Scheduled Procedures Name Priority Associated Diagnoses [...] documented as of this encounter Care Teams Chainstitch Felled Seam Operator Relationship Specialty Start Date End Date Yancy Guerrero MD [address] [place] [address] PCP - General 05/22/16 Lupillo Reyes MD [address] [address] Consulting Physician Orthopedic Surgery 07/26/22 documented as of this encounter
--- OUTSIDE RECORDS SUMMARY | 2024-07-12 20:55 | XMS_ITS | CONTINUITY OF CARE DOCUMENT ---
Author Name emerald corbin Address Unknown Organization [facility] Office Address [address] [place] [address] [address] [place] [address] Phone [phone] Care Team Providers Care Supervisor Crack Off Name Role Phone Prabhu ROSARIO, Tha Unavailable INSURANCE PROVIDERS Payer name Policy type / Coverage type [place] red libertarian ID [facility] [employer] insurance [id number]
--- OUTSIDE RECORDS SUMMARY | 2024-07-12 20:55 | XMS_ITS | Patient Health Record ---
Author Organization 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 confirmed Problem Generalized anxiety disorder (38306449) Generalized anxiety disorder (F41.1) Active confirmed Problem Posttraumatic stress disorder (27526096) PTSD (post-traumatic stress disorder) (F43.10) Active confirmed Problem Alcohol abuse (20466085) Alcohol abuse (F10.10) Active confirmed Encounters Encounter Location Date Provider Diagnosis [facility], [facility] [address] [place] [address] 01/18/2024 Arcelia Qasim Major depressive disorder, recurrent severe without psychotic features F33.2 ; Generalized anxiety disorder F41.1 and Alcohol abuse F10.10 [facility], [facility] [address] [facility] [address] [place] [address] 01/23/2024 Arcelia Tripp Major depressive disorder, recurrent severe without psychotic features F33.2 ; Generalized anxiety disorder F41.1 ; Alcohol abuse F10.10 and PTSD (post-traumatic stress disorder) F43.[address] [facility], Walkin [address] [facility] [address] [place] [address] 02/02/[address] [facility], [facility] [address] [place] [address] 02/28/2024 Arcelia Tripp Major depressive disorder, recurrent severe without psychotic features F33.2 ; Generalized anxiety disorder F41.1 ; Alcohol abuse F10.10 and PTSD (post-traumatic stress disorder) F43.[address] [facility] [address] [facility] [address] [place] [address] 02/13/[address] [facility] [employer] [facility] [address] [facility] [address] [place] [address] 02/26/[address] [facility] [employer] 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 History: Denied Legal History: DUI, 04/26/22 Family History of MH/RADHAMES: alcohol, anxiety, PTSD, bipolar Physical Medical Conditions: hypertension, afib, elevated lipids Spiritual Beliefs: Presybeterian Suicidal Ideation/Self Harm: Denied Homicidal Ideation: Denied [...] weekly support group meetings, like AA or [employer], to sustain sobriety and develop a support [...] Level of Education: completed college 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 2. Family-related Stress - [...] of local support groups, including [employer] and [employer], for additional support. 2. Family-related Stress - [...] to address underlying issues. Utilize a daily master planner incorporating affirmations and goals to foster [...] of the potential tear. Consult with an environmental services specialist for a comprehensive evaluation and to [...] to address underlying issues. Utilize a daily master planner incorporating affirmations and goals to foster [...] of the potential tear. Consult with an environmental services specialist for a comprehensive evaluation and to [...] a list of local support groups, including [employer] and [employer], for additional support. 2. Family-related Stress - [...] to address underlying issues. Utilize a daily master planner incorporating affirmations and goals to foster [...] of the potential tear. 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 2. Family-related Stress - [...] to address underlying issues. Utilize a daily master planner incorporating affirmations and goals to foster [...] of the potential tear. Consult with an environmental services specialist for a comprehensive evaluation and to [...] Insured Coverage Start Date Coverage End Date [facility] [address] [place] [address] [phone] [id number] Camille Hendricks Self - patient is the [...]
--- OUTSIDE RECORDS SUMMARY | 2024-07-12 20:55 | XMS_ITS | Encounter Summary ---
Author Organization [facility] [employer] of [facility] Address [address] [facility] [address] [place] [address] Phone Care Team Providers Care Sand Car Worker Name Role Phone Yancy Guerrero MD Primary Care Provider + [phone] Lupillo Reyes MD Unavailable [phone] Encounter Details Date Type Department Care Team (Latest Contact Info) Description 11/25/2010 Orders Only [facility] Wendy Choudhary, ISAIAS [address] [facility] [address] [place], [place] [id number] Social History Tobacco Use Types Packs/Day Years Used Date Smoking Tobacco: Never Assessed Comments Unknown Sex and Gender Information Value Date Recorded Sex Assigned at Not on file Legal 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 EYEGLASS INSPECTOR Gender Identity Not on file Sexual Orientation Not on file documented as of this encounter Plan of Treatment Upcoming Encounters Date Type Department Care Team (Late st Contact Info) Description 07/19/2024 12:00 PM CDT Hospital Encounter [facility] Operating Room [address] [place] [address] Rob Kline MD [address] [facility] [place] [address] 07/19/2024 12:00 PM CDT Anesthesia Event [facility] Operating Room [address] [place] [address] Nabila Martinez NP [address] [place] [address] [place] [address] 07/19/2024 12:00 PM CDT - 07/19/2024 1:00 PM CDT Surgery [facility] Operating Room [address] [place] [address] Rob Kline MD [address] [place] [address] URETEROSCOPY Scheduled Procedures Name Priority Associated Diagnoses [...] Scan (11/25/2010) Anatomical Region Laterality Modality Other Wendy Choudhary RN [facility] CARDIAC SERVICES P ROCEDURES Final Result documented in this encounter Visit Diagnoses Not on filedocumented in this encounter Additional Health Concerns Infection Onset Date Last Indicated Resolved Time COVID19 05/14/2019 05/14/2019 05/15/2019 11:2 1 AM CDT COVID: Suspected 12/06/2019 12/06/2019 12/20/2019 3:05 AM EYEGLASS INSPECTOR COVID: Suspected 01/14/2021 01/14/2021 01/14/2021 9:43 PM EYEGLASS INSPECTOR COVID: Suspected 01/17/2021 01/17/2021 01/18/2021 5:33 AM EYEGLASS INSPECTOR COVID: Suspected 08/06/2021 08/06/2021 08/07/2021 3:05 AM CDT COVID: Suspected 08/06/2021 08/06/2021 08/07/2021 3:18 AM CDT COVID19 08/06/2021 08/06/2021 08/16/2021 3:05 AM CDT COVID: Recovered Comment:Added based on recent COVID infection. 08/16/2021 08/16/2021 12/14/2021 3:05 AM C DT COVID: Suspected 09/23/2021 09/23/2021 09/23/2021 10:56 PM CDT COVID: Suspected 09/29/2021 09/29/2021 09/29/2021 10:32 PM CDT COVID: Suspected 12/24/2021 12/25/2021 12/25/2021 3:05 AM EYEGLASS INSPECTOR COVID: Suspected 12/25/2021 12/25/2021 12/26/2021 3:05 AM EYEGLASS INSPECTOR COVID: Suspected 12/25/2021 12/25/2021 12/26/2021 3:49 PM EYEGLASS INSPECTOR MDR gram neg/ESBL 2024 2024 documented as of this encounter Care Teams Sand Car Worker Relationship Specialty Start Date End Date Yancy Guerrero MD [address] [place] [address] PCP - General 05/22/16 Lupillo Reyes MD [address] [address] Consulting Physician Orthopedic Surgery 07/26/22 documented as of this encounter
--- OUTSIDE RECORDS SUMMARY | 2024-07-12 20:55 | XMS_ITS | Encounter Summary ---
Author Organization [facility] Address [address] [place] [address] Care Team Providers Care Flat Bed Knitter Name Role Phone Yancy Guerrero MD Primary Care Provider + Encounter Details Date Type Department Care Team (Latest Contact Info) Description 01/24/2008 Outpatient Historical [facility] Tod Cifuentes, [address] [facility] [address] [place] [address] Other Screening Mammogram Social History Tobacco Use Types Packs/Day Years Used Date Smoking Tobacco: Never Assessed Comments Unknown Sex and Gender Information Value Date Recorded Sex Assigned at Not on file Legal Sex Female 4:27 AM APPLICATIONS SYSTEMS ENGINEER Gender Identity Not on file Sexual Orientation Not on file documented as of this encounter Plan of Treatment Not on file documented as of this encounter Procedures Procedure Name Priority Date/Time Associated Diagnosis Comments MAMMO SCREEN BILAT W OR WO CAD Routine 01/24/2008 9:19 AM APPLICATIONS SYSTEMS ENGINEER documented in this encounter Results * MAMMO DIGITAL SCREEN BILAT (01/24/2008 9:19 AM APPLICATIONS SYSTEMS ENGINEER) Anatomical Region Laterality Modality Breast Bilateral Other 01/24/2008 9:19 AM APPLICATIONS SYSTEMS ENGINEER Narrative 01/25/2008 7:03 PM APPLICATIONS SYSTEMS ENGINEER [facility] [address] [place], [place] [address] Admit Date: 01/24/2008 JULI KOO Sex: F Admit Prov: TOD DALLAS Date: 1960 Primary Care Prov: PCP, UNKNOWN CMRN: [id number] Room: [facility] SSN: [id number] IMAGING SERVICES Ordering Prov: TOD DALLAS Accession Number: [id number] Interpretation BILATERAL SCREENING DIGITAL MAMMOGRAMS WITH COMPUTER [...] AMK Procedure Note Olena Christy - 01/25/2008 [id number] [place], [place] [address] Admit Date: 01/24/2008 HANANEJULI Sex: F Admit Prov: TOD DALLAS Date: 1960 Primary Care Prov: PCP, UNKNOWN CMRN: [id number] [id number] Ordering Prov: TOD DALLAS Interpretation [...] mammogram documented in this encounter Care Teams Flat Bed Knitter Relationship Specialty Start Date End Date Yancy Guerrero MD [address] [place] [address] PCP - General Internal Medicine 09/22/14 documented as of this encounter
--- OUTSIDE RECORDS SUMMARY | 2024-07-12 20:55 | XMS_ITS | Referral Summary ---
Author Organization [facility] Address [address] [place] [address] Care Team Providers Care Skidder Name Role Phone Yancy Guerrero MD Primary Care Provider + [phone] Lupillo Reyes MD Unavailable [phone] Encounters Date Type Department Care Team Description 07/11/2024 Telephone [facility] Surgery [address] [place] [address] Cassie Bee EMT 07/09/2024 Telephone [facility] Urology [address] [place] [address] Office Building [address] [place] [address] Glenis Degroot LPN 07/09/2024 Telephone [facility] Surgery [address] [place] [address] Armida Hughes CMA 07/09/2024 2:00 PM CDT Pre-Admission Testing [facility] Pre Anesthesia Testing [address] [facility] [address], [address] [place] [address] 07/01/2024 Orders Only [facility] Urology [address] [place] [address] Office Building [address] [place] [address] Chelsea Haywood MD Urinary tract infection without hematuria, site unspecified (Primary Dx) 06/28/2024 Results Follow-Up [facility] Advanced [facility] Urology [address] [place] [address] 11th [place] [address] [place] [address] Chelsea Haywood MD Urine culture Urine, bladder 06/28/2024 Telephone [facility] Urology [address] [facility] 11th Floor [address] [place] [phone] Erica Moore B.A. 06/27/2024 Telephone [facility] Case Management [address] [place] [address] Dulce Maria Benites RN 06/26/2024 Orders Only [facility] Home Care Services [address] [place] [address] Laurie Tierney, [facility] 06/20/2024 10:10 PM CDT - 06/26/2024 6:14 PM CDT Hospital Encounter [address] [phone] Carlos Palomares MD Baiocco, Joseph, MD Mendelsohn, Marc, MD Sepsis without acute organ dysfunction, due to unspecified organism (HCC) (Primary Dx); Kidney stone; Bradycardia; Pyelonephritis of right kidney Discharge Disposition: Discharge to home, home health skilled care 06/24/2024 Telephone [facility] Cardiology [address] [facility] 8th Floor [address] [place] [phone] Pat Calvo 06/24/2024 Documentation [facility] Urology [address] [facility] Medical Office Building [address] [place] [phone] Chelsea Haywood MD 2024 2:38 PM CDT Anesthesia Event [facility] Operating Room [address] [place] [phone] Jyothi Roque MD Jablonski, Melody A., NP 2024 2:02 PM CDT - 2024 3:07 PM CDT Surgery [facility] Operating Room [address] [place] [address] Chelsea Haywood MD CYSTOSCOPY PLACEMENT URETERAL STENT 06/20/2024 Hospital Encounter [facility] [address] [place] [address] 06/17/2024 Telephone [facility] Orthopaedic Surgery [address] [facility] 2nd Floor [address] [place] [address] Cheryl Trujillo RN WC Intake Form 06/04/2024 Telephone [facility] Orthopaedic Surgery [address] [facility] 2nd Floor [address] [place] [address] Cheryl Trujillo RN from Last 3 Months Allergies No known [...] 15 tablet 3 06/28/19 25 025 Active multivitamin tabletIndication s:Vitamin Deficiency Prevention Take 1 tablet by mouth Active turmeric root extract 500 mg capsule Take by mouth Active metoprolol tartrate (LOPRESSOR) 50 mg immediate [...] days at 120 mL/hr 06/27/19 25 025 nitrofurantoin monohydrate (MACROBID) 100 mg capsuleIndicatio ns:Urinary tract infection without hematuria, site unspecified Take 1 capsule (100 mg total) by mouth 2 (two) times a day for 5 days 10 capsule 07/02/19 25 025 Active Problems Problem Noted Date Diagnosed Date Right kidney stone 07/05/2024 Pyelonephritis of right kidney 06/24/2024 Overview (06/24/2024): 64 y.o. female with pmh anxiety/depression, AF (Xarelto), HTN, HLD transferred [facility] level of care. Had Right [...] 03/21/2023 Assessment & Plan (03/23/2023 7:20 AM DIRECTOR OF CASINO MARKETING): Atenolol resumed with reasonable control Continue to hold Dyazide and losartan until outpatient follow-up HLD (hyperlipidemia) 03/21/2023 Assessment & Plan (03/22/2023 2:05 PM DIRECTOR OF CASINO MARKETING): Continue atorvastatin Transaminases have normalized. Depression with anxiety 03/21/2023 Assessment & Plan (03/23/2023 7:20 AM DIRECTOR OF [employer] MARKETING): Cont citalopram 40mg daily and lorazepam 0.5mg BID Resolved Problems Problem Noted Date Diagnosed Date Resolved Date Hypotension 03/21/2023 03/22/2023 Assessment & Plan (03/21/2023 8:09 PM DIRECTOR OF [employer]INO MARK[employer]): - Presenting with BP 80/50s in setting of reduced PO intake and ongoing BP meds - (+)orthostatics on presentation - Hold BP meds, check orthostatics in AM - Restart meds as needed Headache 03/21/2023 03/22/2023 Assessment & Plan (03/21/2023 8:10 PM DIRECTOR OF [employer]): - Tylenol ordered; avoid NSAIDs Weakness 03/21/2023 03/23/2023 Assessment & Plan (03/22/2023 2:06 PM DIRECTOR OF [employer] MARKETING): TSH and B12 within acceptable limits. Monitor symptoms as blood pressure and renal function recover Nausea 03/21/2023 03/22/2023 Assessment & Plan (03/21/2023 8:10 PM DIRECTOR OF [employer]INO MARKETING): - Zofran ordered SUN (acute kidney injury) 03/21/2023 Assessment & Plan (03/23/2023 7:19 AM DIRECTOR OF [employer]INO MARKET[employer]): Creatinine improved today Check renal function and electrolytes in outpatient follow-up Continue to hold Dyazide and losartan until outpatient follow-up. Abnormal transaminases 03/21/202303/22 Assessment & Plan (03/21/2023 8:11 PM DIRECTOR OF CASINO MARKETING): - Elevated in setting of recent viral infection and presumed hypovolemia - Trend in AM - if continues to be elevated consider hepatitis panel/HIV given occupation history Complete rupture of rotator cuff 07/13/2022 03/21/2023 Acute medial meniscus tear of left knee 06/25/2020 03/21/2023 Overview (06/25/2020): Added automatically from request for surgery [id number] Axillary mass, left 12/30/2016 03/21/19 24 Lipoma [...] = 0.6 oz pur e alcohol) socially [employer]oy [employer] Answer Date Recorded In the past 12 months has e [employer], gas, oil, or water [employer] threatened to shut off services in your [...] often do you attend chur ch or spiritism services? More than 4 times per year 06/02/2023 Do you belong to any clubs o r organizations such as muslim groups, unions, fraternal or athletic groups, or school groups? No 06/02/2023 How often do you attend meet ings of the clubs or organizations you belong to? Never 06/02/2023 Are you , , di vorced, , never , or living with a partner? 06/02/2023 AUDIT-C Answer Date Recorded Q1: How often do you have a drink containing alc ohol? Monthly or less 07/05/2024 Q2: How many drinks containi ng alcohol do you have on a typical day when you are drinking? 1 or 2 07/05/2024 Q3: How often do you have si x or more drinks on one occasion? Less than monthly 07/05/2024 Overall Financial Resource Strain (CARDIA) Answe r [...] place to sleep or slept in a usp (including now)? No 06/02/2023 Personal Safety Answer Date Recorded Have you ever been in or are you currently in a harmful physical or emotional relationship or is someone making you feel afraid or unsafe? 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 DIRECTOR OF CASINO MARKETING Gender Identity Not on file Sexual Orientation Not on file Last Filed Vital Signs Vital Sign Reading Time Taken Comments Blood Pressure 152/78 06/26/2024 4:15 PM CDT Pulse 61 06/26/2024 4:15 PM CDT Temperature 36.6 C (97.9 F) 06/26/2024 4:15 PM CDT Respiratory Rate 16 06/26/2024 4:15 PM CDT Oxygen Saturation 90% 06/26/2024 4:15 PM CDT Inhaled Oxygen Concentration - - Weight 78.5 kg (173 lb) 07/05/2024 12:06 PM CDT Height 167.6 cm (5' 6) 07/05/2024 12:06 PM CDT Body Mass Index 27.92 07/05/2024 12:06 PM CDT Plan of Treatment Upcoming Encounters Date Type Department Care Team (Late st Contact Info) Description 07/19/2024 12:00 PM CDT Hospital Encounter [facility] Operating Room [address] [place] [address] Rob Kline MD [address] [facility] [place] [address] 07/19/2024 12:00 PM CDT Anesthesia Event [facility] Operating Room [address] [place] [address] Nabila Mratinez NP [address] [place] [address] [place] [address] 07/19/2024 12:00 PM CDT - 07/19/2024 1:00 PM CDT Surgery [facility] Operating Room [address] [place] [address] Rob Kline MD [address] [facility] [place] [address] URETEROSCOPY Scheduled Procedures Name Priority Associated Diagnoses Date/Ti me URETEROSCOPY Right kidney stone 07/19/2024 12:00 PM CDT CYSTOSCOPY PLACEMENT URETERA L STENT Right kidney stone 07/19/2024 12:00 PM CDT REMOVAL URETERAL STONE Right kidney stone 07/19/2024 12:00 PM CDT Medical Devices Implanted Type Area Community Director Device Identifier Shelf Expiration Date Model / Serial / Lot [employer] Universa 6fr 24cm Radiopaque Graduate Firm Monofilament Tether [id number] - [id number] Implanted:Qty: 1 on 2024 by Chelsea Haywood MD at [facility] Stent Right: Ureter [employer] [id number] 12/28/2026 [id number] / / [id number] [employer] Corkscrew Tigertail 5.5mm 14[address] Mechanism Vent 2 Square Ar-[id number] - [id number] Implanted:Qty: 1 on 07/26/2022 by Lupillo Reyes MD at [facility] Right: Shoulder [employer] 02/13/2024 AR-1927B CFT / / [id number] [employer] Corkscrew Tigertail 5.5mm 14.7[address] Drive Mechanism Vent 2 Square Ar-[id number] - [id number] Implanted:Qty: 1 on 07/26/2022 by Lupillo Reyes MD at [facility] Right: Shoulder [employer] 11/12/2024 AR-1927B CFT / / [id number] [employer] Swivelock C 4.75mm 19.1mm Closed Eyelet Vent [place] Suture Ar-2324bcc - [id number] Implanted:Qty: 1 on 07/26/2022 by Lupillo Reyes MD at [facility] Right: Shoulder [employer] 02/12/2026 AR-2324B CC / / [id number] Procedures Procedure Name Priority Date/Time Associated Diagnosis [...] CDT Kidney stone Case Notes Poc; Elian [phone] CYSTOSCOPY PLACEMENT URETERAL STENT 2024 2:43 PM CDT Kidney stone Case Notes Poc; Elian [phone] EGFR STAT 2024 1:07 PM CDT LACTATE [...] MD LAB BLOOD ORDERABLES Final Res ult [facility] Department [place] [address] * (ABNORMAL) CBC without differential (06/25/2024 8:45 PM CDT) WBC 7.87 3.80 - 9.90 K/cumm Hgb 11.0(L) 11.9 - 15.5 g/dL [facility] Hct 32.9(L) 35.6 - 45.5 % [facility] Plt 385 150 - 400 K/cumm [facility] MPV 10.6 9.1 - 12.3 fL [facility] RBC 3.50(L) 3.90 - 5.20 M/cumm [facility] MCV 94.0 81.3 - 96.4 fL [facility] MCH 31.4 27.1 - 33.3 pg [facility] MCHC 33.4 32.3 - 35.7 g/dL [facility] RDW CV 14.4 11.1 - 14.9 % [facility] RDW SD 49.4(H) 35.7 - 48.1 fL [facility] NRBC abs 0.00 0.00 - 0.01 K/cumm [facility] Blood 06/25/2024 8:45 PM CDT 06/25/2024 9:59 PM CDT us Braeden Alcantar MD LAB BLOOD ORDERABLES Final Res ult Performing Organization Address City/[facility]/ZIP Co de Phone Number [facility] [place] [address] * Phosphorus (06/25/2024 8:45 PM CDT) [facility] Phosphorus, pl 2.8 2.3 - 4.5 mg/dL Blood 06/25/2024 8:45 PM CDT 06/25/2024 9:43 PM CDT Braeden Alcantar MD LAB BLOOD ORDERABLES Final Res ult Performing Organization Address [facility] Co de Phone Number [facility] Department [place] [address] * Magnesium (06/25/2024 8:45 PM CDT) [facility] Magnesium 2.0 1.4 - 2.5 mg/dL Blood 06/25/2024 8:45 PM CDT 06/25/2024 9:43 PM CDT Braeden Alcantar MD LAB BLOOD ORDERABLES Final Res ult Performing Organization Address [facility] Co de Phone Number [facility] Department [place] [address] * Basic metabolic panel (06/25/2024 8:45 PM CDT) [facility] Sodium 139 135 - 145 mmol/L Potassium, pl 3.7 3.3 - 4.9 mmol/L [facility] Chloride 101 97 - 110 mmol/L [facility] CO2 30 22 - 32 mmol/L [facility] Anion gap 8 2 - 15 mmol/L [facility] BUN 11 6 - 25 mg/dL [facility] Creatinine 0.73 0.60 - 1.10 mg/dL [facility] Glucose 137 70 - 199 mg/dL [facility] Comment: Interpretive Data Fasting glucose >/= [...] Calcium 9.2 8.5 - 10.3 mg/dL [facility] Blood 06/25/2024 8:45 PM CDT 06/25/2024 9:43 PM CDT us Braeden Alcantar MD LAB BLOOD ORDERABLES Final Res [facility] Department [place] [address] * eGFR (06/24/2024 9:08 PM CDT) eGFR [...] MD LAB BLOOD ORDERABLES Final Res ult [facility] Department [place] [address] * (ABNORMAL) CBC without differential (06/24/2024 9:08 PM CDT) Pathologist [facility] WBC 8.12 3.80 - 9.90 K/cumm Hgb 10.9(L) 11.9 - 15.5 g/dL [facility] Hct 31.5(L) 35.6 - 45.5 % [facility] Plt 291 150 - 400 K/cumm [facility] MPV 11.0 9.1 - 12.3 fL [facility] RBC 3.43(L) 3.90 - 5.20 M/cumm [facility] MCV 91.8 81.3 - 96.4 fL [facility] MCH 31.8 27.1 - 33.3 pg [facility] MCHC 34.6 32.3 - 35.7 g/dL [facility] RDW CV 14.1 11.1 - 14.9 % [facility] RDW SD 47.6 35.7 - 48.1 fL [facility] NRBC abs 0.00 0.00 - 0.01 K/cumm [facility] Blood 06/24/2024 9:08 PM CDT 06/24/2024 10:07 PM CDT Braeden Alcantar MD LAB BLOOD ORDERABLES Final Res ult [facility] Department [place] [address] * Phosphorus (06/24/2024 9:08 PM CDT) Pathologist [facility] Phosphorus, pl 2.9 2.3 - 4.5 mg/dL Blood 06/24/2024 9:08 PM CDT 06/24/2024 9:47 PM CDT Braeden Alcantar MD LAB BLOOD ORDERABLES Final Res ult [facility] Department [place] [address] * Magnesium (06/24/2024 9:08 PM CDT) Pathologist [facility] Magnesium 1.8 1.4 - 2.5 mg/dL Blood 06/24/2024 9:08 PM CDT 06/24/2024 9:47 PM CDT Braeden Alcantar MD LAB BLOOD ORDERABLES Final Res ult Performing Organization Address [facility] Co de Phone Number [facility] Department [place] [address] * Basic metabolic panel (06/24/2024 9:08 PM CDT) [facility] Sodium 141 135 - 145 mmol/L Potassium, pl 3.6 3.3 - 4.9 mmol/L [facility] Chloride 103 97 - 110 mmol/L [facility] CO2 30 22 - 32 mmol/L [facility] Anion gap 8 2 - 15 mmol/L [facility] BUN 8 6 - 25 mg/dL [facility] Creatinine 0.67 0.60 - 1.10 mg/dL [facility] Glucose 155 70 - 199 mg/dL [facility] Comment: Interpretive Data Fasting glucose >/= [...] 2022. Calcium 8.8 8.5 - 10.3 mg/dL [facility] Blood 06/24/2024 9:08 PM CDT 06/24/2024 9:47 PM CDT us Braeden Alcantar MD LAB BLOOD ORDERABLES Final Res ult [facility] Department [place] [address] * TRANSTHORACIC ECHO (TTE) COMPLETE W DOPPLER/CF W CONTRAST (06/24/2024 2:47 PM CDT) Estimated EF 55-60 % CONS SCIMAGE EF Mod BP 68 % CONS SCIMAGE Anatomical Region Laterality Modality Ultrasound 06/24/2024 1:39 PM CDT Narrative 06/24/2024 3:12 PM CDT [facility] [place] [address] Transthoracic Echocardiographic Report Patient Name: JULI KOO J : 1960 (64y ) Gender: F Study Date: 06/24/2024 01:39:40 PM Ht(Inch): 65 Wt(Lb): 201.06 BSA: 2.05 Ice Maker: Renita Rosado RDCS Location: [id number] Order Provider: DONNY CARRANZA BMI: 33.45 BP: [...] Note Slava Carrion MD PhD - 06/24/2024 [facility] [place] [address] Transthoracic Echocardiographic Report Patient Name: JULI KOO J : 1960 (64y ) Gender: F Study Date: 06/24/2024 01:39:40 PM Ht(Inch): 65 Wt(Lb): 201.06 BSA: 2.05 Ice Maker: Renita Rosado RDCS Location: [id number] Order Provider:DONNY CARRANZA BMI: 33.45 BP: 123 [...] LAB BLOOD ORDERABLES Final Res ult [facility] Department [place] [address] * (ABNORMAL) CBC without differential (06/23/2024 9:45 PM CDT) WBC 7.48 3.80 - 9.90 K/cumm Hgb 10.6(L) 11.9 - 15.5 g/dL [facility] Hct 30.7(L) 35.6 - 45.5 % [facility] Plt 223 150 - 400 K/cumm [facility] MPV 10.9 9.1 - 12.3 fL [facility] RBC 3.32(L) 3.90 - 5.20 M/cumm [facility] MCV 92.5 81.3 - 96.4 fL [facility] MCH 31.9 27.1 - 33.3 pg [facility] MCHC 34.5 32.3 - 35.7 g/dL [facility] RDW CV 14.1 11.1 - 14.9 % [facility] RDW SD 47.7 35.7 - 48.1 fL [facility] NRBC abs 0.00 0.00 - 0.01 K/cumm [facility] Blood 06/23/2024 9:45 PM CDT 06/23/2024 10:21 PM CDT Braeden Alcantar MD LAB BLOOD ORDERABLES Final Res ult Performing Organization Address City/[facility]/ZIP Co de Phone Number [facility] [place] [address] * Phosphorus (06/23/2024 9:45 PM CDT) [facility] Phosphorus, pl 2.9 2.3 - 4.5 mg/dL Blood 06/23/2024 9:45 PM CDT 06/23/2024 10:22 PM CDT Braeden Alcantar MD LAB BLOOD ORDERABLES Final Res ult [facility] [place] [address] * Magnesium (06/23/2024 9:45 PM CDT) [facility] Magnesium 1.5 1.4 - 2.5 mg/dL Blood 06/23/2024 9:45 PM CDT 06/23/2024 10:22 PM CDT Braeden Alcantar MD LAB BLOOD ORDERABLES Final Res ult Performing Organization Address City/[facility]/ZIP Co de Phone Number [facility] Department [place] [address] * (ABNORMAL) Basic metabolic panel (06/23/2024 9:45 PM CDT) Pathologist [facility] Sodium 138 135 - 145 mmol/L Potassium, pl 2.8(L) 3.3 - 4.9 mmol/L [facility] Chloride 105 97 - 110 mmol/L [facility] CO2 25 22 - 32 mmol/L [facility] Anion gap 8 2 - 15 mmol/L [facility] BUN 8 6 - 25 mg/dL [facility] Creatinine 0.82 0.60 - 1.10 mg/dL [facility] Glucose 91 70 - 199 mg/dL [facility] Comment: Interpretive Data Fasting glucose >/= [...] 2022. Calcium 8.4(L) 8.5 - 10.3 mg/dL [facility] Blood 06/23/2024 9:45 PM CDT 06/23/2024 10:22 PM CDT Braeden Alcantar MD LAB BLOOD ORDERABLES Final Res ult Performing Organization Address [facility]/ZIP Co de Phone Number [facility] Department [place] [address] * Critical Care (06/23/2024 9:12 AM CDT) Narrative Kecia Troy MD - 06/23/2024 9:12 AM CDT Kecia Troy MD 06/23/2024 4:13 PM Critical Care Performed by: Donny Carranza NP Authorized by: Donny Carranza NP CRITICAL CARE: Team: [place] Shift: AM Level of Billing: Subsequent Hospital [...] plan with the patient's team and other medical/clinical science consultant staff. This time was in addition to and separate from care provided by other practitioners on this day of service. I spent time reviewing and interpreting data from bedside monitors, laboratory results, and imaging, I spent time discussing the management of this critically ill patient with consultants and the medical staff and I spent time documenting in the medical record Donny Carranza LEGAL SECRETARY IN CLINIC/BEDSIDE JOSE MARR Final Result * eGFR (06/22/2024 7:55 PM CDT) Pathologist [facility] eGFR 80 >=60 mL/min/1. 73 m2 Comment: [...] LAB BLOOD ORDERABLES Final Res ult [facility] [place] [address] * (ABNORMAL) CBC without differential (06/22/2024 7:55 PM CDT) WBC 7.81 3.80 - 9.90 K/cumm Hgb 11.1(L) 11.9 - 15.5 g/dL [facility] Hct 33.1(L) 35.6 - 45.5 % [facility] Plt 180 150 - 400 K/cumm [facility] MPV 11.1 9.1 - 12.3 fL [facility] RBC 3.51(L) 3.90 - 5.20 M/cumm [facility] MCV 94.3 81.3 - 96.4 fL [facility] MCH 31.6 27.1 - 33.3 pg [facility] MCHC 33.5 32.3 - 35.7 g/dL [facility] RDW CV 14.3 11.1 - 14.9 % [facility] RDW SD 48.6(H) 35.7 - 48.1 fL [facility] NRBC abs 0.00 0.00 - 0.01 K/cumm [facility] Blood 06/22/2024 7:55 PM CDT 06/22/2024 9:23 PM CDT Braeden Alcantar MD LAB BLOOD ORDERABLES Final Res ult [facility] [place] [address] * (ABNORMAL) Phosphorus (06/22/2024 7:55 PM CDT) Pathologist [facility] Phosphorus, pl 2.2(L) 2.3 - 4.5 mg/dL Blood 06/22/2024 7:55 PM CDT 06/22/2024 8:52 PM CDT Braeden Alcantar MD LAB BLOOD ORDERABLES Final Res ult Performing Organization Address [facility] Co de Phone Number [facility] Department [place] [address] * Magnesium (06/22/2024 7:55 PM CDT) [facility] Magnesium 2.1 1.4 - 2.5 mg/dL Blood 06/22/2024 7:55 PM CDT 06/22/2024 8:52 PM CDT Braeden Alcantar MD LAB BLOOD ORDERABLES Final Res ult Performing Organization Address [facility] de Phone Number [facility] [place] [address] * (ABNORMAL) Basic metabolic panel (06/22/2024 7:55 PM CDT) [facility] Sodium 136 135 - 145 mmol/L Potassium, pl 4.1 3.3 - 4.9 mmol/L [facility] Chloride 106 97 - 110 mmol/L [facility] CO2 20(L) 22 - 32 mmol/L [facility] Anion gap 10 2 - 15 mmol/L [facility] BUN 15 6 - 25 mg/dL [facility] Creatinine 0.82 0.60 - 1.10 mg/dL [facility] Glucose 146 70 - 199 mg/dL [facility] Comment: Interpretive Data Fasting glucose >/= [...] 2022. Calcium 8.7 8.5 - 10.3 mg/dL [facility] Blood 06/22/2024 7:55 PM CDT 06/22/2024 8:52 PM CDT us Braeden Alcantar MD LAB BLOOD ORDERABLES Final Res ult [facility] Department [place] [address] * Critical Care (06/22/2024 6:39 PM CDT) Narrative Benjy Godinez MD PhD - 06/22/2024 6:39 PM CDT Benjy Godinez MD PhD 06/23/2024 9:03 PM Critical Care Performed by: Asmita Sarabia NP Authorized by: Asmita Sarabia NP CRITICAL CARE: Team: [place] Shift: PM Level of Billing: Subsequent Hospital [...] plan with the patient's team and other medical/clinical science consultant staff. This time was in addition to and separate from care provided by other practitioners on this day of service. I spent time reviewing and interpreting data from bedside monitors, laboratory results, and imaging and I spent time documenting in the medical record us Asmita Sarabia LEGAL SECRETARY IN CLINIC/BEDSIDE O RDERABLES Final Result * [...] plan with the patient's team and other medical/clinical science consultant staff. This time was in addition [...] in the medical record us Donny Carranza LEGAL SECRETARY IN CLINIC/BEDSIDE JOSE MARR Final Result * (ABNORMAL) Vancomycin level trough Draw prior to giving vancomycin dose (06/22/2024 5:01 AM CDT) Pathologist [facility] Vancomycin trough 6.8(L) 10.0 - 20.0 mcg/mL Blood 06/22/2024 5:01 AM CDT 06/22/2024 5:14 AM CDT [facility]ative [facility] - 06/22/2024 6:29 AM CDT Draw prior to giving vancomycin dose us Lyla Jenkins NP LAB BLOOD ORDERABLES Final Res ult [facility] Department [place] [address] * ECG 12 lead (2024 10:48 PM CDT) Ventricular Rate EKG/Min 56 BPM [facility] Atrial Rate 56 BPM [facility] MT-Interval (MSEC) 148 ms [facility] QRS-Interval (MSEC) 84 ms [facility] QT-Interval (MSEC) 530 ms [facility] QTc 511 ms [facility] P [place] 42 degrees [facility] R [place] -13 degrees [facility] T [place] 23 degrees [facility] Diagnosis Sinus bradycardia Prolonged QT Abnormal ECG Confirmed by Abdelrahman Chowdhury MD ([id number]) on 06/24/2024 6:54:15 PM [facility] 2024 10:4 8 PM CDT 06/24/2024 6:54 PM CDT Braeden Alcantar MD ECG ORDERABLES Final Result Performing Organization Address [facility] Co de Phone Number [facility] * (ABNORMAL) POC Blood Gas and Chemistries, Arterial - (2024 9:59 PM CDT) pH, Art POC 7.34(L) 7.35 - 7.45 pCO2, Art POC 33(L) 35 - 45 mmHg [facility] pO2, Art POC 83 83 - 108 mmHg [facility] Na, POC 135 135 - 145 mmol/L [facility] K POC 3.7 3.3 - 4.9 mmol/L [facility] Comment: Interpretive Data Not all point of care methods assess for hemolysis. Confirm with instrument and retest K+ if not consistent with clinical signs and symptoms. Current Interpretive Data was last revised on 2023. Cl, POC 109 97 - 110 mmol/L [facility] Ionized Ca, POC 5.02 4.50 - 5.10 mg/dL [facility] Glucose, POC 155 70 - 199 mg/dL [facility] Lactate POC 0.6(L) 0.7 - 2.0 mmol/L [facility] SO2 (chay) arterial 98(H) 90 - 95 % [facility] Base excess, POC -7.1 mmol/L [facility] HCO3, Art POC 18(L) 20 - 30 mmol/L [facility] Hct, POC 32.0(L) 36.3 - 45.3 % [facility] Total Hb, POC 10.6(L) 11.9 - 15.5 g/dL [facility] Blood 2024 9:59 PM CDT 2024 9:59 PM CDT Braeden Alcantar MD LAB POCT ORDERABLES - DEVICE F inal Result Performing Organization Address City/[facility]/ZIP Co de Phone Number [facility] Department [place] [address] * XR Abdomen Ap 1 Vw (2024 [...] signed by: Kevyn Herrera M.D. Devon [facility] IM XR PROCEDURES Final Result * X-ray chest [...] PM CDT Devon [facility] LAB MICROBIOLOGY - [facility] [place] [address] * Hepatitis C antibody Blood (2024 5:02 PM CDT) Pathologist [facility] Hep C Ab Nonreactive Nonreactive Comment:Antibodies to HCV no t detected. Does NOT exclude the possibility of recent exposure to HCV. Current interpretive data was last revised on 21 Blood 2024 5:02 PM CDT 2024 5:30 PM CDT us Devon [facility] LAB MICROBIOLOGY - GENER AL ORDERABLES Final Result Performing Organization Address [facility] [place] [address] * RPR Blood (2024 5:02 PM CDT) [facility] RPR Nonreactive Nonreactive Blood 2024 5:02 PM CDT 2024 5:30 PM CDT us Devon CENTENO LAB MICROBIOLOGY - GENER AL ORDERABLES Final Result Performing Organization Address [facility] Co de Phone Number [facility] [place] [address] * Hepatitis B Surface Antigen Blood (2024 5:02 PM CDT) [facility] HepBsAg Nonreactive Nonreactive Blood 2024 5:0 2 PM CDT 2024 5:30 PM CDT us Devon CENTENO LAB MICROBIOLOGY - GENER AL ORDERABLES Final Result Performing Organization Address [facility] Co de Phone Number [facility] [place] [address] * Lactate (2024 5:00 PM CDT) Lactate 0.7 0.7 - 2.0 mmol/L Blood 2024 5:00 PM CDT 2024 5:31 PM CDT Braeden Alcantar MD LAB BLOOD ORDERABLES Final Res ult Performing Organization Address City/[facility]/ZIP Co de Phone Number [facility] [place] [address] * (ABNORMAL) eGFR (2024 5:00 PM CDT) [...] ORDERABLES Final Res ult Performing Organization Address City/[facility]/ZIP Co de Phone Number [facility] [place] [address] * (ABNORMAL) Calcium, ionized (2024 5:00 PM CDT) [facility] Calcium, Ionized 4.43(L) 4.50 - 5.10 mg/dL Blood 2024 5:00 PM CDT 2024 5:37 PM CDT Braeden Alcantar MD LAB BLOOD ORDERABLES Final Res ult [facility] [place] [address] * (ABNORMAL) CBC without differential (2024 5:00 PM CDT) [facility] WBC 7.37 3.80 - 9.90 K/cumm Hgb 10.2(L) 11.9 - 15.5 g/dL [facility] Hct 29.8(L) 35.6 - 45.5 % [facility] Plt 152 150 - 400 K/cumm [facility] MPV 10.9 9.1 - 12.3 fL [facility] RBC 3.20(L) 3.90 - 5.20 M/cumm [facility] MCV 93.1 81.3 - 96.4 fL [facility] MCH 31.9 27.1 - 33.3 pg [facility] MCHC 34.2 32.3 - 35.7 g/dL [facility] RDW CV 14.2 11.1 - 14.9 % [facility] RDW SD 49.1(H) 35.7 - 48.1 fL [facility] NRBC abs 0.00 0.00 - 0.01 K/cumm [facility] Blood 2024 5:00 PM CDT 2024 5:30 PM CDT Braeden Alcantar MD LAB BLOOD ORDERABLES Final Res ult [facility] [place] [address] * Phosphorus (2024 5:00 PM CDT) Pathologist [facility] Phosphorus, pl 2.6 2.3 - 4.5 mg/dL Blood 2024 5:00 PM CDT 2024 5:37 PM CDT Braeden Alcantar MD LAB BLOOD ORDERABLES Final Res ult Performing Organization Address City/[facility] Co de Phone Number [facility] Department [place] [address] * Magnesium (2024 5:00 PM CDT) [facility] Magnesium 1.7 1.4 - 2.5 mg/dL Blood 2024 5:00 PM CDT 2024 5:37 PM CDT Braeden Alcantar MD LAB BLOOD ORDERABLES Final Res ult Performing Organization Address [facility] de Phone Number [facility] [place] [address] * (ABNORMAL) Blood gas, arterial (2024 5:00 PM CDT) Pathologist [facility] pH, Art 7.36 7.35 - 7.45 PCO2, Arterial 34(L) 35 - 45 mmHg [facility] PO2, Arterial 125(H) 83 - 108 mmHg [facility] HCO3 Art (Calculated) 20 20 - 30 mmol/L [facility] BE, art -6 mmol/L [facility] Comment: Interpretive Data No Reference Range Established Current Interpretive Data was last revised on 2017 O2 Sat Art (Measured) 98(H) 90 - 95 % [facility] Blood 2024 5:00 PM CDT 2024 5:22 PM CDT Braeden Alcantar MD LAB BLOOD ORDERABLES Final Res ult [facility] Department [place] [address] * (ABNORMAL) Basic metabolic panel (2024 5:00 PM CDT) Pathologist [facility] Sodium 142 135 - 145 mmol/L Potassium, pl 3.1(L) 3.3 - 4.9 mmol/L [facility] Chloride 107 97 - 110 mmol/L [facility] CO2 23 22 - 32 mmol/L [facility] Anion gap 12 2 - 15 mmol/L [facility] BUN 15 6 - 25 mg/dL [facility] Creatinine 1.12(H) 0.60 - 1.10 mg/dL [facility] Glucose 126 70 - 199 mg/dL [facility] Comment: Interpretive Data Fasting glucose >/= [...] 2022. Calcium 8.1(L) 8.5 - 10.3 mg/dL [facility] Blood 2024 5:00 PM CDT 2024 5:37 PM CDT us Braeden Alcantar MD LAB BLOOD ORDERABLES Final Res ult Performing Organization Address City/[facility]/ZIP Co de Phone Number [facility] Department [place] [address] * ECG 12 lead (2024 4:29 PM CDT) Ventricular Rate EKG/Min 63 BPM [facility] Atrial Rate 63 BPM [facility] MT-Interval (MSEC) 144 ms [facility] QRS-Interval (MSEC) 86 ms [facility] QT-Interval (MSEC) 498 ms [facility] QTc 509 ms [facility] P [place] 17 degrees [facility] R [place] -22 degrees [facility] T [place] 12 degrees [facility] Diagnosis Normal sinus rhythm Minimal voltage criteria for LVH, may be normal variant Prolonged QT Abnormal ECG Confirmed by Abdelrahman Chowdhury MD ([id number]) on 06/24/2024 6:57:56 PM [facility] 2024 4:29 PM CDT 06/24/2024 6:57 PM CDT us Braeden Alcantar MD ECG ORDERABLES Final Result [facility] * (ABNORMAL) POC Blood Gas and Chemistries, Arterial - (2024 3:47 PM CDT) pH, Art POC 7.42 7.35 - 7.45 pCO2, Art POC 31(L) 35 - 45 mmHg [facility] pO2, Art POC 158(H) 83 - 108 mmHg [facility] Na, POC 139 135 - 145 mmol/L [facility] K POC 2.9(L) 3.3 - 4.9 mmol/L [facility] Comment: Interpretive Data Not all point of care methods assess for hemolysis. Confirm with instrument and retest K+ if not consistent with clinical signs and symptoms. Current Interpretive Data was last revised on 2023. Cl, POC 112(H) 97 - 110 mmol/L [facility] Ionized Ca, POC 4.44(L) 4.50 - 5.10 mg/dL [facility] Glucose, POC 116 70 - 199 mg/dL [facility] Lactate POC 1.2 0.7 - 2.0 mmol/L [facility] SO2 (chay) arterial 100(H) 90 - 95 % [facility] Base excess, POC -3.6 mmol/L [facility] HCO3, Art POC 20 20 - 30 mmol/L [facility] Hct, POC 31.0(L) 36.3 - 45.3 % [facility] Total Hb, POC 10.3(L) 11.9 - 15.5 g/dL [facility] Blood 2024 3:47 PM CDT 2024 3:47 PM CDT Braeden Alcantar MD LAB POCT ORDERABLES - DEVICE F inal Result Performing Organization Address City/[facility]/ZIP Co de Phone Number [facility] Department [place] [address] * FL Fluoroscopy < 1 Hour (2024 3:20 PM CDT) Narrative [facility] - 2024 3:20 PM CDT The images from this study are not interpreted by Radiology. Please refer to the physician's procedure / OR operative note. Chelsea Haywood MD IMG FLUOROSCOPY PROCEDURES Fin al Result Performing Organization Address [facility] Co de Phone Number [facility] * (ABNORMAL) Urine culture Urine, bladder (2024 [...] (clinically insignificant growth. (.) Organism ESCHERICHIA COLI [facility] Urine, bladder 2024 3: 20 PM CDT 2024 5:31 PM CDT Narrative [facility] - 06/27/2024 10:28 AM CDT URINE CULTURE Indications for Culture:->Urology patient Testing performed by [facility] ([phone]) Organism Antibiotic Method Susceptibility Escherichia coli Ampicillin [...] Edited Result - Final Performing Organization Address City/[facility]/ZIP Co de Phone Number [facility] [place] [address] * Lactate (2024 1:07 PM CDT) Pathologist [facility] Lactate 0.8 0.7 - 2.0 mmol/L Blood 2024 1:07 PM CDT 2024 1:40 PM CDT us Lyla Jenkins NP LAB BLOOD ORDERABLES Final Res ult Performing Organization Address [facility] Co de Phone Number [facility] [place] [address] * (ABNORMAL) eGFR (2024 1:07 PM CDT) [...] CDT 2024 2:06 PM CDT Lyla Jenkins LEGAL SECRETARY LAB BLOOD ORDERABLES Final Res ult Performing Organization Address City/[facility]/ZIP Co de Phone Number [facility] [place] [address] * (ABNORMAL) CBC without differential (2024 1:07 PM CDT) WBC 7.70 3.80 - 9.90 K/cumm Hgb 10.6(L) 11.9 - 15.5 g/dL [facility] Hct 30.6(L) 35.6 - 45.5 % [facility] Plt 161 150 - 400 K/cumm [facility] MPV 11.0 9.1 - 12.3 fL [facility] RBC 3.31(L) 3.90 - 5.20 M/cumm [facility] MCV 92.4 81.3 - 96.4 fL [facility] MCH 32.0 27.1 - 33.3 pg [facility] MCHC 34.6 32.3 - 35.7 g/dL [facility] RDW CV 14.3 11.1 - 14.9 % [facility] RDW SD 49.0(H) 35.7 - 48.1 fL [facility] NRBC abs 0.00 0.00 - 0.01 K/cumm [facility] Blood 2024 1:07 PM CDT 2024 2:06 PM CDT Lyla Jenkins NP LAB BLOOD ORDERABLES Final Res ult [facility] Department [place] [address] * (ABNORMAL) Basic metabolic panel (2024 1:07 PM CDT) Sodium 139 135 - 145 mmol/L Potassium, pl 3.3 3.3 - 4.9 mmol/L [facility] Chloride 108 97 - 110 mmol/L [facility] CO2 21(L) 22 - 32 mmol/L [facility] Anion gap 10 2 - 15 mmol/L [facility] BUN 16 6 - 25 mg/dL [facility] Creatinine 1.21(H) 0.60 - 1.10 mg/dL [facility] Glucose 100 70 - 199 mg/dL [facility] Comment: Interpretive Data Fasting glucose >/= [...] 2022. Calcium 7.8(L) 8.5 - 10.3 mg/dL [facility] Blood 2024 1:07 PM CDT 2024 2:06 PM CDT us Lyla Jenkins NP LAB BLOOD ORDERABLES Final Res ult [facility] [place] [address] * Urine culture Urine, clean voided (2024 8:45 AM CDT) Report Final Report: Less than 100,000 colonies/mL (clinically insignificant growth based on current clinical standards) Organism (CLINICALLY INSIGNIFICANT GROWTH [facility] Urine, clean voided 2024 8:45 AM CDT 2024 9:43 AM CDT Narrative [facility] - 06/22/2024 12:09 PM CDT Indications for Culture:->Recent positive UA Testing performed by [facility] Microbiology Laboratory ([phone]) Braeden Alcantar MD LAB MICROBIOLOGY - GENERAL ORD ERABLES Final Result [facility] Department [place] [address] * (ABNORMAL) Urinalysis reflex to microscopic (2024 8:32 AM CDT) Color, ur Yellow Yellow Clarity, ur Turbid(A) Clear [facility] Specific gravity, ur 1.017 1.003 - 1.030 [facility] pH, urine 6.0 [facility] Comment: Interpretive Data U rine pH is affected by diet, medications, systemic acid-base disturbances, and renal tubular function. pH may affect urinary stone formation. For example, urine pH below 6.0 may help reduce the tendency for calcium phosphate stones and pH greater than 6.0 may reduce the tendency for uric acid stone formation. Source: [facility] Current Interpretive Data was last revised on 2017 Protein, ur ql 2+(A) Negative [facility] Glucose, ur ql Negative Negative [facility] Ketones, ur 1+(A) Negative [facility] Bilirubin, ur Negative Negative [facility] Blood, ur 1+(A) Negative [facility] Urobilinogen, ur <2.0 <2.0 mg/dL [facility] Nitrite, ur Positive(A) Negative [facility] Leukocyte esterase, ur 3+(A) Negative [facility] UA reflex comment Reflex to microscopic UA will be performed. [facility] Urine 2024 8:32 AM CDT 2024 9:19 AM CDT Braeden Alcantar MD LAB URINE ORDERABLES Final Res ult Performing Organization Address City/[facility]/ZIP Co de Phone Number [facility] [place] [address] * (ABNORMAL) Urinalysis, microscopic only (2024 8:32 AM CDT) WBC, ur >50(A) 0 - 5 /HPF RBC, ur 6-10(A) 0 - 2 /HPF [facility] Epithelial cells, squamous, ur 1-5 0 - 5 /HPF [facility] Bacteria, ur 4+(A) [facility] Urine 2024 8:32 AM CDT 2024 9:19 AM CDT Braeden Alcantar MD LAB URINE ORDERABLES Final Res ult Performing Organization Address [facility] de Phone Number [facility] [place] [address] * [place] Kidney Complete (2024 12:33 AM [...] by: Yojana Perez M.D. Miko Edwards MD [facility] [place]ED[place] Final Result * Check Sample (06/20/2024 11:13 PM CDT) ABO Rh A Negative [facility] OTHER 06/20/2024 11:1 3 PM CDT 06/20/2024 11:45 PM CDT us Carlos Palomares MD LAB BLOOD ORDERABLES Shanell l Result [facility] [place] [address] [facility] * XR Chest 1 Vw Portable (06/20/2024 [...] images may or may not represent the [place] source data set and thus may contain [...] IMAGING STUDY STUDY INITIALLY PERFORMED: 06/20/2024 at [facility] [place] [facility]. TYPE OF STUDY: Multiple CT images of [...] IMAGING STUDY STUDY INITIALLY PERFORMED: 06/20/2024 at [facility] [place] [facility] [place]. TYPE OF STUDY: Multiple CT images of [...] images may or may not represent the [place]ne[place] source data set and thus may contain changes that may lower the accuracy of this second-opinion interpretation. Dictated by: Bhupinder Pearl MD The radiology attending physician has personally reviewed this study, and had reviewed and/or edited this written report and agrees with it. Electronically signed by: Braeden Lyle M.D. Marc Grijalva MD IM CT PROCEDURES Final Result * Neuro CT Outside Reference (06/20/2024 10:49 PM CDT) Impressions [facility] - 06/20/2024 10:49 PM CDT These images are for Reference purposes only and have not been reviewed by [facility] Radiology. There will be no report generated by a [facility] Radiologist. Narrative [facility] - 06/20/2024 10:49 PM CDT EXAMINATION: Images For Reference Purposes Only Marc Grijalva MD IMG CT PROCEDURES Final Result [facility] * ECG 12-LEAD (06/20/2024 10:46 PM CDT) Narrative [facility] - 06/20/2024 10:46 PM CDT Carlos Palomares MD 06/20/2024 10:47 PM ECG 12 lead Date/Time: 06/20/2024 10:46 PM Performed by: Carlos Palomares MD Authorized by: Miko Edwarsd MD Comments: Normal sinus rhythm, rate of [...] evidence of acuteischemia. Carlos Palomares MD 06/20/24 [id number] Miko Edwards MD ECG ORDERABLES Final R esult Performing Organization Address [facility]/ZIP Co de Phone Number [facility] * Sepsis Lactate w/ Reflex (06/20/2024 10:38 PM CDT) [facility] Sepsis Lactate 1.1 0.7 - 2.0 mmol/L Blood 06/20/2024 10:3 8 PM CDT 06/20/2024 10:42 PM CDT Carlos Palmoares MD LAB BLOOD ORDERABLES Shanell l Result Performing Organization Address [facility] Co de Phone Number [facility] [place] [address] * POCT glucose (06/20/2024 10:27 PM CDT) [facility] Glucose, POC 162 70 - 199 mg/dL Blood 06/20/2024 10:2 7 PM CDT 06/20/2024 10:27 PM CDT Carlos Palomares MD LAB POCT ORDERABLES - DEV ICE Final Result Performing Organization Address [facility] de Phone Number [facility] Department [place] [address] * (ABNORMAL) eGFR (06/20/2024 10:24 PM CDT) [facility] eGFR 37(L) >=60 mL/min/1. 73 m2 Comment: [...] MD LAB BLOOD ORDERABLES Fi nal Result [facility] [place] [address] * (ABNORMAL) Differential, auto (06/20/2024 10:24 PM CDT) Neutrophil abs 8.00(H) 1.50 - 6.50 K/cumm Imm gran abs 0.12(H) 0.00 - 0.10 K/cumm [facility] Lymphocyte abs 1.11 0.80 - 3.30 K/cumm [facility] Monocyte abs 1.06(H) 0.20 - 0.80 K/cumm [facility] Eosinophil abs 0.00 0.00 - 0.50 K/cumm [facility] Basophil abs 0.04 0.00 - 0.10 K/cumm [facility] Neutrophil pct 77.4 % [facility] Comment: Interpretive Data Percent cell count reference ranges are not reported, since discordance with absolute values may lead to misinterpretation of CBC data. Current Interpretive Data was last revised on 2017. Imm gran pct 1.2 % [facility] Comment: Interpretive Data Percent cell count reference ranges are not reported, since discordance with absolute values may lead to misinterpretation of CBC data. Current Interpretive Data was last revised on 2017. Lymphocyte pct 10.7 % [facility] Comment: Interpretive Data Percent cell count reference ranges are not reported, since discordance with absolute values may lead to misinterpretation of CBC data. Current Interpretive Data was last revised on 2017. Monocyte pct 10.3 % [facility] Comment: Interpretive Data Percent cell count reference ranges are not reported, since discordance with absolute values may lead to misinterpretation of CBC data. Current Interpretive Data was last revised on 2017. Eosinophil pct 0.0 % [facility] Comment: Interpretive Data Percent cell count reference ranges are not reported, since discordance with absolute values may lead to misinterpretation of CBC data. Current Interpretive Data was last revised on 2017. Basophil pct 0.4 % [facility] Comment: Interpretive Data Percent cell count reference ranges are not reported, since discordance with absolute values may lead to misinterpretation of CBC data. Current Interpretive Data was last revised on 2017. Blood 06/20/2024 10:2 4 PM CDT 06/20/2024 10:35 PM CDT Miko Edwards MD LAB BLOOD ORDERABLES nal Result [facility] [place] [address] * Respiratory pathogen panel Nasopharyngeal (06/20/2024 10:24 PM CDT) Pathologist [facility] Influenza A RNA Not Detected Not Detected Influenza B RNA Not Detected Not Detected [facility] RSV RNA Not Detected Not Detected [facility] COVID-19 RNA Not Detected Not Detected [facility] Coronavirus 229E RNA Not Detected Not Detected [facility] Coronavirus HKU1 RNA Not Detected Not Detected [facility] Coronavirus NL63 RNA Not Detected Not Detected [facility] Coronavirus OC43 RNA Not Detected Not Detected [facility] Adenovirus DNA Not Detected Not Detected [facility] Metapneumovirus RNA Not Detected Not Detected [facility] Rhinovirus/Enterov irus RNA Not Detected Not Detected [facility] Parainfluenza 1 RNA Not Detected Not Detected [facility] Parainfluenza 2 RNA Not Detected Not Detected [facility] Parainfluenza 3 RNA Not Detected Not Detected [facility] Parainfluenza 4 RNA Not Detected Not Detected [facility] B. pertussis DNA Not Detected Not Detected [facility] B. parapertussis DNA Not Detected Not Detected [facility] C. pneumoniae DNA Not Detected Not Detected [facility] M. pneumoniae DNA Not Detected Not Detected [facility] Nasopharyngeal 06/20/2024 10 :24 PM CDT 06/20/2024 10:40 PM CDT Narrative [facility] - 06/20/2024 11:35 PM CDT Is the Patient experiencing symptoms consistent with COVID?->No Surveillance testing for transplant patient?->No Interpretive Data The [employer] FilmArray Respiratory Panel (RP2.1) assay is a [...] assay has FDA clearance for testing of LEGAL SECRETARY swabs. The performance of additional specimen types has been assessed by the performing laboratory. The performance characteristics of this assay have been determined by [facility] Molecular Infectious Disease Laboratory. Current interpretive data was last revised on 21. Miko Edwards MD LAB MICROBIOLOGY - [facility] ORDERABLES Final Result [facility] [place] [address] * (ABNORMAL) CBC with auto differential (06/20/2024 10:24 PM CDT) WBC 10.33(H) 3.80 - 9.90 K/cumm Hgb 10.6(L) 11.9 - 15.5 g/dL [facility] Hct 31.6(L) 35.6 - 45.5 % [facility] Plt 167 150 - 400 K/cumm [facility] MPV 10.3 9.1 - 12.3 fL [facility] RBC 3.37(L) 3.90 - 5.20 M/cumm [facility] MCV 93.8 81.3 - 96.4 fL [facility] MCH 31.5 27.1 - 33.3 pg [facility] MCHC 33.5 32.3 - 35.7 g/dL [facility] RDW CV 14.0 11.1 - 14.9 % [facility] RDW SD 47.5 35.7 - 48.1 fL [facility] NRBC abs 0.02(H) 0.00 - 0.01 K/cumm [facility] Blood 06/20/2024 10:2 4 PM CDT 06/20/2024 10:35 PM CDT Miko Edwards MD LAB BLOOD ORDERABLES Fi nal Result Performing Organization Address [facility]/ZIP Co de Phone Number [facility] Department [place] [address] * Blood culture Blood Peripheral (06/20/2024 10:24 PM CDT) Report Final Report: No growth Blood (Peripheral) 06/20/2024 10:24 PM CDT 06/20/2024 10:37 PM CDT Narrative [facility] - 06/25/2024 7:01 AM CDT From a [...] performance characteristics have been verified by the [facility] Microbiology Laboratory. For questions about this culture, contact the Microbiology Laboratory at [phone]. Interpretive data was last revised on 23. Miko Edwards MD LAB MICROBIOLOGY - GENE RAL ORDERABLES Final Result Performing Organization Address City/[facility] Co de Phone Number [facility] Department [place] [address] * Blood culture Blood Peripheral (06/20/2024 10:24 [...] performance characteristics have been verified by the [facility] Microbiology Laboratory. For questions about this culture, contact the Microbiology Laboratory at [phone]. Interpretive data was last revised on 23. us Miko Edwards MD LAB MICROBIOLOGY - GENE [facility] ORDERABLES Final Result [facility] Department [place] [address] * aPTT (06/20/2024 10:24 PM CDT) aPTT [...] ORDERABLES Fi nal Result Performing Organization Address [facility] de Phone Number [facility] Department [place] [address] * (ABNORMAL) Protime-INR (06/20/2024 10:24 PM CDT) PT 13.5(H) 9.7 - 13.0 sec INR 1.24(H) 0.90 - 1.20 [facility] Comment: Interpretive data Oral anticoagulant therapeutic ranges: Venous thromboembolism prophylaxis or treatment: 2.0-3.0 CARDIOLOGY Standard range: 2.0-3.0 High-intensity range: 2.5-3.5 Refer to indication-specific guidelines for appropriate target ranges for prosthetic heart valve replacement. Current interpretive data was last revised on 2019. Blood 06/20/2024 10:2 4 PM CDT 06/20/2024 10:[address] [facility] Miko Edwards MD LAB BLOOD ORDERABLES Fi nal Result Performing Organization Address [facility] Co de Phone Number [facility] Department [place] [address] * Type and screen (06/20/2024 10:24 PM CDT) ABO Rh A Negative Jeanette, indirect Negative [facility] Blood 06/20/2024 10:2 4 PM CDT 06/20/2024 10:42 PM CDT N[facility]ative [facility] - 06/20/2024 11:43 PM CDT Has the patient had Daratumumab or Isatuximab in the past 6 months?->Unknown Miko Edwards MD LAB BLOOD BANK TEST ORD ERABLES Final Result [facility] [place] [address] * (ABNORMAL) Basic metabolic panel (06/20/2024 10:24 PM CDT) [facility] Sodium 138 135 - 145 mmol/L Potassium, pl 3.3 3.3 - 4.9 mmol/L [facility] Chloride 106 97 - 110 mmol/L [facility] CO2 22 22 - 32 mmol/L [facility] Anion gap 10 2 - 15 mmol/L [facility] BUN 19 6 - 25 mg/dL [facility] Creatinine 1.56(H) 0.60 - 1.10 mg/dL [facility] Glucose 134 70 - 199 mg/dL [facility] Comment: Interpretive Data Fasting glucose >/= [...] 2022. Calcium 7.2(L) 8.5 - 10.3 mg/dL [facility] Blood 06/20/2024 10:2 4 PM CDT 06/20/2024 10:35 PM CDT Miko Edwards MD LAB BLOOD ORDERABLES Fi nal Result [facility] [place] [address] * COLONOSCOPY (07/18/2017 9:10 AM CDT) Anatomical Region Laterality Modality Other Narrative Procedure Note Mike Locke MD - 07/18/2017 9:10 AM CDT [facility] Patient Name: Jlui Koo Procedure Date: 07/18/2017 9:10 AM Date of : 1960 Admit Type: Outpatient Age: 57 Gender: Female Attending MD: Mike Locke MD Room: [facility] ENDOSCOPY CAPSULE Note Status: Finalized Patient [...] passed under direct vision.The Pediatric Colonoscope PCF-H190L [id number] was introduced through the anus and advanced [...] 9:10 AM Procedure Code(s): --- Professional --- 19611, Colonoscopy, flexible; diagnostic, including collection of specimen(s) by brushing or washing, when performed (separateprocedure) Diagnosis Code(s): --- Professional --- Z86.010, Personal history of colonic polyps K64.8, Other hemorrhoids K57.30, Diverticulosis of large intestine without perforation orabscess without bleeding CPT copyright 2017 [employer]. All rights reserved. The codes documented in this report are preliminary and upon information coder reviewmay be revised to meet current compliance requirements. 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 [id number] [place] [address] [facility] WORKERS COMPENSATION GENERIC Member Subscriber Plan / Payer (Ef fective 2022-Present) Name:Juli Koo Relation to Subscriber:Self Name:Juli Koo Payer ID:[id number] Group ID:Not on file Type:WORKERS COMPENSATION Address: [place] [id number] [facility] Advance Directives For more information, please contact: [phone] * Full Code (Latest Code Status on [...] 8:32 AM 07/18/2017 12:39 PM Care Teams Skidder Relationship Specialty Start Date End Date Yancy Guerrero MD [address] [place] [address] PCP - General 05/22/16 Lupillo Reyes MD [address] [address] Consulting Physician Orthopedic Surgery 07/26/22
--- OUTSIDE RECORDS SUMMARY | 2024-07-12 20:55 | XMS_ITS | Encounter Summary ---
Author Organization [facility] Address [address] [place] [address] Care Team Providers Care Gift Manager Name Role Phone Yancy Guerrero MD Primary Care Provider + Encounter Details Date Type Department Care Team (Latest Contact Info) Description 05/02/2003 Outpatient Historical [facility] Tod Cifuentes MD [address] [facility] [address] [place] [address] SCREENING MAMM-MAILG NEOPL-OTHER (Primary Dx) Social History Tobacco Use Types Packs/Day Years Used Date Smoking Tobacco: Never Assessed Comments Unknown Sex and Gender Information Value Date Recorded Sex Assigned at Not on file Legal Sex Female 4:27 AM NAIL TECH Gender Identity Not on file Sexual Orientation Not on file documented as of this encounter Plan of Treatment Not on file documented as of this encounter Visit Diagnoses Diagnosis Other screening mammogram- Primary documented in this encounter Care Teams Gift Manager Relationship Specialty Start Date End Date Yancy Guerrero MD [address] [place] [address] PCP - General Internal Medicine 09/22/14 documented as of this encounter
--- OUTSIDE RECORDS SUMMARY | 2024-07-12 20:55 | XMS_ITS ---
Author Organization [facility] As [facility] Address [address] [facility] [address] [place] [address] Care Team Providers Care Sculpture Instructor Name Role Phone Cesar ROSARIO, Yancy Primary Care Provider Arcelia Mullins [phone] Social History Sex Assigned At : Social History Observation Description Sex Assigned At Female Encounters Encounter Location Date Provider Diagnosis [facility] [address] [facility] [address] [place] [address] 03/06/2024 Arcelia Tripp Plan Of Treatment No Information Progress Notes * Camille KOODOB: [birth year] (64 yo F)Acc No.[id number]:03/06/2024 Patient: Anabel WILHELMCamille MAHMOOD Provider: Ami Tripp :1960 A ge:63 Y S ex:Female Date:03/06/2024 Phone: Address:[address] [place], [place] [id number] Pcp:Yancy Guerrero MD Data: * Chief Complaints: * Assessment: Plan: * Treatment: * Billing Information: * Visit Code: * Procedure Codes: * Electronic signature of Roman Tripp LCPC on 07/12/2024 at 08:54 PM CDT Sign off status: Pending Signatures: No Ad Hoc Signature Added * Provider: Ami Tripp Date: 03/06/2024 Generated for Kristoferi guy/Dipika/eTransminderjit on: 0 07/12/2024 08:54 PM CDT
--- OUTSIDE RECORDS SUMMARY | 2024-07-12 20:55 | XMS_ITS | Encounter Summary ---
Author Organization [facility] Address [address] [place] [address] Care Team Providers Care Business Solutions Consultant Name Role Phone Yancy Guerrero MD Primary Care Provider + Encounter Details Date Type Department Care Team (Latest Contact Info) Description 03/10/2006 Outpatient Historical HIS [facility] SRIDHAR Velázquez, [place] [address] [facility] [address] [place] [address] Lump or Mass in Breast (Primary Dx) Social History Tobacco Use Types Packs/Day Years Used Date Smoking Tobacco: Never Assessed Comments Unknown Sex and Gender Information Value Date Recorded Sex Assigned at Not on file Legal 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
--- OUTSIDE RECORDS SUMMARY | 2024-07-12 20:55 | XMS_ITS | Clinical Summary ---
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 Gender Identity Not on file Sexual Orientation Not on file Occupation Industry Job Start Date Job End Date Not on file Not on file Not on file Not on file Last Filed Vital Signs Vital Sign Reading Time Taken Comments Blood Pressure 132/89 12/30/2016 11:52 AM GEOTHERMAL INSTALLER Pulse 92 12/30/2016 11:52 AM GEOTHERMAL INSTALLER Temperature 36.9 C (98.4 F) 01/29/2009 11:30 AM GEOTHERMAL INSTALLER Respiratory Rate 16 01/29/2009 11:30 AM GEOTHERMAL INSTALLER Oxygen Saturation 93% 01/29/2009 11:30 AM GEOTHERMAL INSTALLER Inhaled Oxygen Concentration - - Weight 76.7 kg (169 lb) 12/30/2016 11:52 AM GEOTHERMAL INSTALLER Height 167.6 cm (5' 6) 12/30/2016 11:52 AM GEOTHERMAL INSTALLER Body Mass Index 27.28 12/30/2016 11:52 AM GEOTHERMAL INSTALLER Plan of Treatment Health Maintenance Due Date [...] series) 2036 Medical Devices Implanted Type Area Sound Person Device Identifier Shelf Expiration Date Model / Serial / Lot Sling Monarc [id number] Implanted:Qty: 1 on 01/28/2009 at [facility] Sling Pelvis [facility] [employer] [id number] / / Procedures Procedure Name Priority Date/Time [...] BI-RADS CATEGORY 1: Negative DICTATION LOCATION: [facility] Narrative 10/31/2019 3:53 PM CDT BILATERAL SCREENING [...] BI-RADS CATEGORY 1: Negative DICTATION LOCATION: [facility] Tod Dallas MD MAMMO ORDERABLES Final Result from Last 3 Months or Most Recently Relevant to Health Maintenance Insurance [employer] [id number] [place] Advance Directives For more information, please contact: [phone] * Full Code (Latest Code Status on File) Date Activated Date Inactivated Comments 01/28/2009 9:06 PM 01/29/2009 4:29 PM * Full Code Date Activated Date Inactivated Comments 01/28/2009 7:38 PM 01/28/2009 9:06 PM * Full Code Date Activated Date Inactivated Comments 01/28/2009 2:46 PM 01/28/2009 7:38 PM Care Teams Lead Software Qa Engineer Relationship Specialty Start Date End Date Yancy Guerrero MD [address] [place] [phone] PCP - General Internal Medicine 09/22/14
--- OUTSIDE RECORDS SUMMARY | 2024-07-12 20:55 | XMS_ITS | Clinical Summary ---
Author Organization [facility] Address [address] [place] [address] Care Team Providers Care Silk Trimmer Name Role Phone Yancy Guerrero MD Primary Care Provider + [phone] Lupillo Reyes MD Unavailable [phone] Allergies No known active allergies Medications citalopram [...] anxiety/depression, AF (Xarelto), HTN, HLD transferred from [facility] for higher level of care. Had Right [...] 03/21/2023 Assessment & Plan (03/23/2023 7:20 AM LATHE MACHINIST): Atenolol resumed with reasonable control Continue to hold Dyazide and losartan until outpatient follow-up HLD (hyperlipidemia) 03/21/2023 Assessment & Plan (03/22/2023 2:05 PM LATHE MACHINIST): Continue atorvastatin Transaminases have normalized. Depression with anxiety 03/21/2023 Assessment & Plan (03/23/2023 7:20 AM LATHE MACHINIST): Cont citalopram 40mg daily and lorazepam 0.5mg BID Resolved Problems Problem Noted Date Diagnosed Date Resolved Date Hypotension 03/21/2023 03/22/2023 Assessment & Plan (03/21/2023 8:09 PM LATHE MACHINIST): - Presenting with BP 80/50s in setting of reduced PO intake and ongoing BP meds - (+)orthostatics on presentation - Hold BP meds, check orthostatics in AM - Restart meds as needed Headache 03/21/2023 03/22/2023 Assessment & Plan (03/21/2023 8:10 PM LATHE MACHINIST): - Tylenol ordered; avoid NSAIDs Weakness 03/21/2023 03/23/2023 Assessment & Plan (03/22/2023 2:06 PM LATHE MACHINIST): TSH and B12 within acceptable limits. Monitor symptoms as blood pressure and renal function recover Nausea 03/21/2023 03/22/2023 Assessment & Plan (03/21/2023 8:10 PM LATHE MACHINIST): - Zofran ordered SUN (acute kidney injury) 03/21/2023 Assessment & Plan (03/23/2023 7:19 AM LATHE MACHINIST): Creatinine improved today Check renal function and electrolytes in outpatient follow-up Continue to hold Dyazide and losartan until outpatient follow-up. Abnormal transaminases 03/21/202303/22 Assessment & Plan (03/21/2023 8:11 PM LATHE MACHINIST): - Elevated in setting of recent viral infection and presumed hypovolemia - Trend in AM - if continues to be elevated consider hepatitis panel/HIV given occupation history Complete rupture of rotator cuff 07/13/2022 03/21/2023 Acute medial meniscus tear of left knee 06/25/2020 03/21/2023 Overview (06/25/2020): Added automatically from request for surgery [id number] Axillary mass, left 12/30/2016 03/21/19 24 Lipoma of forehead 11/23/2015 Pain in shoulder 11/12/2014 03/21/2023 Syncope 03/06/2013 03/21/2023 Encounters Date Type Department Care Team Description 07/11/2024 Telephone [facility] Surgery [address] [place] [address] Cassie Bee EMT 07/09/2024 2:00 PM CDT Pre-Admission Testing [facility] Pre Anesthesia Testing 6 [facility] M[address], [address] [place] [address] 07/09/2024 Telephone [facility] Urology [address] [place] [address] Office Building [address] [place] [phone] Glenis Degroot LPN 07/09/2024 Telephone [facility] Surgery [address] [place] [id number] Armida Hughes, PURNIMA 07/01/2024 Orders Only [facility] Urology [address] [place] [address] Office Building [address] [place] [phone] Chelsea Haywood MD Urinary tract infection without hematuria, site unspecified (Primary Dx) 06/28/2024 Results Follow-Up [facility] Urology [address] [place] [address] 11th [place] [address] [place] [phone] Chelsea Haywood MD Urine culture Urine, bladder 06/28/2024 Telephone [facility]) [facility] Urology [address] [place] [address] 11th [place] [address] [place] [phone] Erica Moore B.A. 06/27/2024 Telephone [facility] Case Management [address] [place] [phone] Dulce Maria Benites RN 06/26/2024 Orders Only [facility] [address] [place] [phone] Laurie Tierney, Formerly [facility] 06/24/2024 Telephone [facility] Cardiology [address] [facility] 8th [place] [address] [place] [address] aPt Calvo 06/24/2024 Documentation [facility] Urology [address] [facility] Medical Office Building [address] [place] [phone] Chelsea Haywood MD 2024 2:38 PM CDT Anesthesia Event [facility] Operating Room [address] [place] [phone] Jyothi Roque MD Jablonski, Melody A., NP 2024 2:02 PM CDT - 2024 3:07 PM CDT Surgery [facility] Operating Room [address] [place] [phone] Chelsea Haywood MD CYSTOSCOPY PLACEMENT URETERAL STENT 06/20/2024 10:10 PM CDT - 06/26/2024 6:14 PM CDT Hospital Encounter [facility] [address] [place] [address] Carlos Palomares MD Baiocco, Joseph, MD Mendelsohn, Marc, MD Sepsis without acute organ dysfunction, due to unspecified organism (HCC) (Primary Dx); Kidney stone; Bradycardia; Pyelonephritis of right kidney Discharge Disposition: Discharge to home, home health skilled care 06/20/2024 Hospital Encounter [facility] ADMIT [address] [place] [address] 06/17/2024 Telephone [facility] Orthopaedic Surgery [address] [place] [address] 2nd Floor [address] [place] [phone] Cheryl Trujillo RN WC Intake Form 06/04/2024 Telephone [facility] Orthopaedic Surgery [address] [facility] 2nd Floor [address] [place] [address] Cheryl Trujillo RN from Last 3 Months Immunizations Immunization Administration Dates Next Due Influenza, Unspecified 11/13/2022 Pfizer SARS-CoV-2 Monovalent Vaccination (12+ Yrs) PURPLE 03/13/2020,02/18/2020 Surgical History Surgery Date Site/Laterality Comments TOTAL ABDOMINAL HYSTERECTOMY W/ BILATERAL SALPINGOOPHORECTOMY 02/13/2007 - 02/13/2008 PELVIC LAPAROSCOPY x2 ANTERIOR AND POSTERIOR VAGINAL REPAIR BLADDER SUSPENSION TVT ROTATOR CUFF REPAIR Right OOPHORECTOMY 02/14/1980 - 02/12/1981 URETERAL STENT PLACEMENT 06/13/2024 - 07/13/2024 Medical History Medical History Date Comments Traumatic complete tear of right rotator cuff Anxiety and depression Hypertension Dyslipidemia Atrial fibrillation, controlled (HCC) Kidney stone Thrombocytopenia Family History Medical History Relation Name Comments [...] = 0.6 oz pur e alcohol) socially [employer] Answer Date Recorded In the past 12 months has [employer], gas, oil, or water [employer] threatened to shut off services in your [...] How often do you attend chur or worship services? More than 4 times per year 06/02/2023 Do you belong to any clubs o r organizations such as rastafari groups, unions, fraternal or athletic groups, or [...] place to sleep or slept in a jail (including now)? No 06/02/2023 Personal Safety Answer Date Recorded Have you ever been in or are you currently in a harmful physical or emotional relationship or is someone making you feel afraid or unsafe? 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 LATHE MACHINIST Gender Identity Not on file Sexual Orientation [...] Description 07/19/2024 12:00 PM CDT Hospital Encounter [facility] Operating Room [address] [place] [address] Rob Kline MD [address] [facility] [place] [address] 07/19/2024 12:00 PM CDT Anesthesia Event [facility] Operating Room [address] [place] [address] Nabila Martinez, YENI [address] [place] [address] [place] [address] 07/19/2024 12:00 PM CDT - 07/19/2024 1:00 PM CDT Surgery [facility] Operating Room [address] [place] [address] Rob Kline MD [address] [facility] [place] [address] URETEROSCOPY Scheduled Procedures Name Priority Associated Diagnoses Date/Ti me URETEROSCOPY Right kidney stone 07/19/2024 12:00 PM CDT CYSTOSCOPY PLACEMENT URETERA L STENT Right kidney stone 07/19/2024 12:00 PM CDT REMOVAL URETERAL STONE Right kidney stone 07/19/2024 12:00 PM CDT Health Maintenance Due Date Last Done Comments [...] Completed 2024 Medical Devices Implanted Type Area Drafting Supervisor Device Identifier Shelf Expiration Date Model / Serial / Lot [employer] Universa 6fr 24cm Radiopaque Graduate Firm Monofilament Tether [id number] - [id number] Implanted:Qty: 1 on 2024 by Chelsea Haywood MD at [facility] Stent Right: Ureter [employer] [id number] 12/28/2026 [id number] / / [id number] [employer] Corkscrew Tigertail 5.5mm 14[address] Mechanism Vent 2 Square Ar-[id number] - [id number] Implanted:Qty: 1 on 07/26/2022 by Lupillo Reyes MD at [facility] Right: Shoulder [employer] 02/13/2024 AR-1927B CFT / / [id number] [employer] Corkscrew Tigertail 5.5mm 14.7[address] Drive Mechanism Vent 2 Square Ar-1927bcft - [id number] Implanted:Qty: 1 on 07/26/2022 by Lupillo Reyes MD at [facility] Right: Shoulder [employer] 11/12/2024 AR-1927B CFT / / [id number] [employer] Swivelock C 4.75mm 19.1mm Closed Eyelet Vent [place] Suture Ar-2324bcc - [id number] Implanted:Qty: 1 on 07/26/2022 by Lupillo Reyes MD at [facility] Right: Shoulder [employer] 02/12/2026 AR-2324B CC / / [id number] Procedures Procedure Name Priority Date/Time Associated Diagnosis [...] CDT Kidney stone Case Notes Poc; Elian [phone] CYSTOSCOPY PLACEMENT URETERAL STENT 2024 2:43 PM CDT Kidney stone Case Notes Poc; Elian [phone] EGFR STAT 2024 1:07 PM CDT LACTATE [...] MD LAB BLOOD ORDERABLES Final Res ult [facility] Department [place] [address] * (ABNORMAL) CBC without differential (06/25/2024 8:45 PM CDT) WBC 7.87 3.80 - 9.90 K/cumm Hgb 11.0(L) 11.9 - 15.5 g/dL [facility] Hct 32.9(L) 35.6 - 45.5 % [facility] Plt 385 150 - 400 K/cumm [facility] MPV 10.6 9.1 - 12.3 fL [facility] RBC 3.50(L) 3.90 - 5.20 M/cumm [facility] MCV 94.0 81.3 - 96.4 fL [facility] MCH 31.4 27.1 - 33.3 pg [facility] MCHC 33.4 32.3 - 35.7 g/dL [facility] RDW CV 14.4 11.1 - 14.9 % [facility] RDW SD 49.4(H) 35.7 - 48.1 fL [facility] NRBC abs 0.00 0.00 - 0.01 K/cumm [facility] Blood 06/25/2024 8:45 PM CDT 06/25/2024 9:59 PM CDT Braeden Alcantar MD LAB BLOOD ORDERABLES Final Res ult Performing Organization Address City/[facility]/ZIP Co de Phone Number [facility] [place] [address] * Phosphorus (06/25/2024 8:45 PM CDT) [facility] Phosphorus, pl 2.8 2.3 - 4.5 mg/dL Blood 06/25/2024 8:45 PM CDT 06/25/2024 9:43 PM CDT Braeden Alcantar MD LAB BLOOD ORDERABLES Final Res ult Performing Organization Address City/[facility] Co de Phone Number [facility] [place] [address] * Magnesium (06/25/2024 8:45 PM CDT) [facility] Magnesium 2.0 1.4 - 2.5 mg/dL Blood 06/25/2024 8:45 PM CDT 06/25/2024 9:43 PM CDT Braeden Alcantar MD LAB BLOOD ORDERABLES Final Res ult Performing Organization Address [facility] Co de Phone Number [facility] Department [place] [address] * Basic metabolic panel (06/25/2024 8:45 PM CDT) [facility] Sodium 139 135 - 145 mmol/L Potassium, pl 3.7 3.3 - 4.9 mmol/L [facility] Chloride 101 97 - 110 mmol/L [facility] CO2 30 22 - 32 mmol/L [facility] Anion gap 8 2 - 15 mmol/L [facility] BUN 11 6 - 25 mg/dL [facility] Creatinine 0.73 0.60 - 1.10 mg/dL [facility] Glucose 137 70 - 199 mg/dL [facility] Comment: Interpretive Data Fasting glucose >/= 126 [...] Calcium 9.2 8.5 - 10.3 mg/dL [facility] Blood 06/25/2024 8:45 PM CDT 06/25/2024 9:43 PM CDT us Braeden Alcantar MD LAB BLOOD ORDERABLES Final Res ult [facility] Department [place] [address] * eGFR (06/24/2024 9:08 PM CDT) eGFR [...] MD LAB BLOOD ORDERABLES Final Res ult [facility] [place] [address] * (ABNORMAL) CBC without differential (06/24/2024 9:08 PM CDT) Pathologist [facility] WBC 8.12 3.80 - 9.90 K/cumm Hgb 10.9(L) 11.9 - 15.5 g/dL [facility] Hct 31.5(L) 35.6 - 45.5 % [facility] Plt 291 150 - 400 K/cumm [facility] MPV 11.0 9.1 - 12.3 fL [facility] RBC 3.43(L) 3.90 - 5.20 M/cumm [facility] MCV 91.8 81.3 - 96.4 fL [facility] MCH 31.8 27.1 - 33.3 pg [facility] MCHC 34.6 32.3 - 35.7 g/dL [facility] RDW CV 14.1 11.1 - 14.9 % [facility] RDW SD 47.6 35.7 - 48.1 fL [facility] NRBC abs 0.00 0.00 - 0.01 K/cumm [facility] Blood 06/24/2024 9:08 PM CDT 06/24/2024 10:07 PM CDT us Braeden Alcantar MD LAB BLOOD ORDERABLES Final Res ult [facility] [place] [address] * Phosphorus (06/24/2024 9:08 PM CDT) Pathologist [facility] Phosphorus, pl 2.9 2.3 - 4.5 mg/dL Blood 06/24/2024 9:08 PM CDT 06/24/2024 9:47 PM CDT Braeden Alcantar MD LAB BLOOD ORDERABLES Final Res ult [facility] [place] [address] * Magnesium (06/24/2024 9:08 PM CDT) Pathologist [facility] Magnesium 1.8 1.4 - 2.5 mg/dL Blood 06/24/2024 9:08 PM CDT 06/24/2024 9:47 PM CDT Braeden Alcantar MD LAB BLOOD ORDERABLES Final Res ult Performing Organization Address [facility] Co de Phone Number [facility] [place] [address] * Basic metabolic panel (06/24/2024 9:08 PM CDT) [facility] Sodium 141 135 - 145 mmol/L Potassium, pl 3.6 3.3 - 4.9 mmol/L [facility] Chloride 103 97 - 110 mmol/L [facility] CO2 30 22 - 32 mmol/L [facility] Anion gap 8 2 - 15 mmol/L [facility] BUN 8 6 - 25 mg/dL [facility] Creatinine 0.67 0.60 - 1.10 mg/dL [facility] Glucose 155 70 - 199 mg/dL [facility] Comment: Interpretive Data Fasting glucose >/= 126 [...] 2022. Calcium 8.8 8.5 - 10.3 mg/dL [facility] Blood 06/24/2024 9:08 PM CDT 06/24/2024 9:47 PM CDT us Braeden Alcantar MD LAB BLOOD ORDERABLES Final Res ult [facility] [place] [address] * TRANSTHORACIC ECHO (TTE) COMPLETE W DOPPLER/CF W CONTRAST (06/24/2024 2:47 PM CDT) Estimated EF 55-60 % CONS SCIMAGE EF Mod BP 68 % CONS SCIMAGE Anatomical Region Laterality Modality Ultrasound 06/24/2024 1:39 PM CDT Narrative 06/24/2024 3:12 PM CDT [facility] [place] [address] Transthoracic Echocardiographic Report Patient Name: JULI KOO J : 1960 (64y ) Gender: F Study Date: 06/24/2024 01:39:40 PM Ht(Inch): 65 Wt(Lb): 201.06 BSA: 2.05 Credit Portfolio Manager: Renita Rosado RDCS Location: [id number] Order Provider: DONNY CARRANZA BMI: 33.45 BP: [...] Note Slava Carrion MD PhD - 06/24/2024 [facility] [place] [address] Transthoracic Echocardiographic Report Patient Name: JULI KOO J : 1960 (64y ) Gender: F Study Date: 06/24/2024 01:39:40 PM Ht(Inch): 65 Wt(Lb): 201.06 BSA: 2.05 Credit Portfolio Manager: Renita Rosado RDCS Location: [id number] Order Provider:DONNY CARRANZA BMI: 33.45 BP: 123 [...] LAB BLOOD ORDERABLES Final Res ult [facility] Department [place] [address] * (ABNORMAL) CBC without differential (06/23/2024 9:45 PM CDT) WBC 7.48 3.80 - 9.90 K/cumm Hgb 10.6(L) 11.9 - 15.5 g/dL [facility] Hct 30.7(L) 35.6 - 45.5 % [facility] Plt 223 150 - 400 K/cumm [facility] MPV 10.9 9.1 - 12.3 fL [facility] RBC 3.32(L) 3.90 - 5.20 M/cumm [facility] MCV 92.5 81.3 - 96.4 fL [facility] MCH 31.9 27.1 - 33.3 pg [facility] MCHC 34.5 32.3 - 35.7 g/dL [facility] RDW CV 14.1 11.1 - 14.9 % [facility] RDW SD 47.7 35.7 - 48.1 fL [facility] NRBC abs 0.00 0.00 - 0.01 K/cumm [facility] Blood 06/23/2024 9:45 PM CDT 06/23/2024 10:21 PM CDT Braeden Alcantar MD LAB BLOOD ORDERABLES Final Res ult Performing Organization Address City/[facility]/ZIP Co de Phone Number [facility] Department [place] [place] [address] * Phosphorus (06/23/2024 9:45 PM CDT) [facility] Phosphorus, pl 2.9 2.3 - 4.5 mg/dL Blood 06/23/2024 9:45 PM CDT 06/23/2024 10:22 PM CDT Braeden Alcantar MD LAB BLOOD ORDERABLES Final Res ult [facility] [place] [address] * Magnesium (06/23/2024 9:45 PM CDT) [facility] Magnesium 1.5 1.4 - 2.5 mg/dL Blood 06/23/2024 9:45 PM CDT 06/23/2024 10:22 PM CDT Braeden Alcantar MD LAB BLOOD ORDERABLES Final Res ult Performing Organization Address City/[facility] Co de Phone Number [facility] Department [place] [place] [address] * (ABNORMAL) Basic metabolic panel (06/23/2024 9:45 PM CDT) Pathologist [facility] Sodium 138 135 - 145 mmol/L Potassium, pl 2.8(L) 3.3 - 4.9 mmol/L [facility] Chloride 105 97 - 110 mmol/L [facility] CO2 25 22 - 32 mmol/L [facility] Anion gap 8 2 - 15 mmol/L [facility] BUN 8 6 - 25 mg/dL [facility] Creatinine 0.82 0.60 - 1.10 mg/dL [facility] Glucose 91 70 - 199 mg/dL [facility] Comment: Interpretive Data Fasting glucose >/= 126 [...] 2022. Calcium 8.4(L) 8.5 - 10.3 mg/dL [facility] Blood 06/23/2024 9:45 PM CDT 06/23/2024 10:22 PM CDT Braeden Alcantar MD LAB BLOOD ORDERABLES Final Res ult Performing Organization Address [facility] Co de Phone Number [facility] Department [place] [address] * Critical Care (06/23/2024 9:12 AM CDT) Narrative Kecia Troy MD - 06/23/2024 9:12 AM CDT Kecia Troy MD 06/23/2024 4:13 PM Critical Care Performed by: Donny Carranza NP Authorized by: Donny Carranza NP CRITICAL CARE: Team: PALATKA Shift: AM Level of Billing: Subsequent Hospital [...] plan with the patient's team and other medical/jury consultant staff. This time was in addition to and separate from care provided by other practitioners on this day of service. I spent time reviewing and interpreting data from bedside monitors, laboratory results, and imaging, I spent time discussing the management of this critically ill patient with consultants and the medical staff and I spent time documenting in the medical record Donny Carranza MECHANICAL SERVICE REPRESENTATIVE IN CLINIC/BEDSIDE JOSE MARR Final Result * [...] MD LAB BLOOD ORDERABLES Final Res ult [facility] [place] [place] [address] * (ABNORMAL) CBC without differential (06/22/2024 7:55 PM CDT) WBC 7.81 3.80 - 9.90 K/cumm Hgb 11.1(L) 11.9 - 15.5 g/dL [facility] Hct 33.1(L) 35.6 - 45.5 % [facility] Plt 180 150 - 400 K/cumm [facility] MPV 11.1 9.1 - 12.3 fL [facility] RBC 3.51(L) 3.90 - 5.20 M/cumm [facility] MCV 94.3 81.3 - 96.4 fL [facility] MCH 31.6 27.1 - 33.3 pg [facility] MCHC 33.5 32.3 - 35.7 g/dL [facility] RDW CV 14.3 11.1 - 14.9 % [facility] RDW SD 48.6(H) 35.7 - 48.1 fL [facility] NRBC abs 0.00 0.00 - 0.01 K/cumm [facility] Blood 06/22/2024 7:55 PM CDT 06/22/2024 9:23 PM CDT Braeden Alcantar MD LAB BLOOD ORDERABLES Final Res ult [facility] [place] [place] [address] * (ABNORMAL) Phosphorus (06/22/2024 7:55 PM CDT) [facility] Phosphorus, pl 2.2(L) 2.3 - 4.5 mg/dL Blood 06/22/2024 7:55 PM CDT 06/22/2024 8:52 PM CDT Braeden Alcantar MD LAB BLOOD ORDERABLES Final Res ult Performing Organization Address [facility] Co de Phone Number [facility] Department [place] [address] * Magnesium (06/22/2024 7:55 PM CDT) [facility] Magnesium 2.1 1.4 - 2.5 mg/dL Blood 06/22/2024 7:55 PM CDT 06/22/2024 8:52 PM CDT Braeden Alcantar MD LAB BLOOD ORDERABLES Final Res ult Performing Organization Address [facility] de Phone Number [facility] Department [place] [address] * (ABNORMAL) Basic metabolic panel (06/22/2024 7:55 PM CDT) [facility] Sodium 136 135 - 145 mmol/L Potassium, pl 4.1 3.3 - 4.9 mmol/L [facility] Chloride 106 97 - 110 mmol/L [facility] CO2 20(L) 22 - 32 mmol/L [facility] Anion gap 10 2 - 15 mmol/L [facility] BUN 15 6 - 25 mg/dL [facility] Creatinine 0.82 0.60 - 1.10 mg/dL [facility] Glucose 146 70 - 199 mg/dL [facility] Comment: Interpretive Data Fasting glucose >/= 126 [...] 2022. Calcium 8.7 8.5 - 10.3 mg/dL [facility] Blood 06/22/2024 7:55 PM CDT 06/22/2024 8:52 PM CDT us Braeden Alcantar MD LAB BLOOD ORDERABLES Final Res ult [facility] [place] [address] * Critical Care (06/22/2024 6:39 PM CDT) Narrative Benjy Godinez MD PhD - 06/22/2024 6:39 PM CDT Benjy Godinez MD PhD 06/23/2024 9:03 PM Critical Care Performed by: Asmita Sarabia NP Authorized by: Asmita Sarabia NP CRITICAL CARE: Team: PALATKA Shift: PM Level of Billing: Subsequent Hospital [...] plan with the patient's team and other medical/jury consultant staff. This time was in addition to and separate from care provided by other practitioners on this day of service. I spent time reviewing and interpreting data from bedside monitors, laboratory results, and imaging and I spent time documenting in the medical record us Asmita Sarabia MECHANICAL SERVICE REPRESENTATIVE IN CLINIC/BEDSIDE O RDERABLES Final Result * [...] plan with the patient's team and other medical/jury consultant staff. This time was in addition [...] in the medical record us Donny Carranza MECHANICAL SERVICE REPRESENTATIVE IN CLINIC/BEDSIDE JOSE MARR Final Result * (ABNORMAL) Vancomycin level trough Draw prior to giving vancomycin dose (06/22/2024 5:01 AM CDT) Pathologist [facility] Vancomycin trough 6.8(L) 10.0 - 20.0 mcg/mL Blood 06/22/2024 5:01 AM CDT 06/22/2024 5:14 AM CDT Narrative [facility] - 06/22/2024 6:29 AM CDT Draw prior to giving vancomycin dose us Lyla Jenkins NP LAB BLOOD ORDERABLES Final Res ult [facility] [place] [address] * ECG 12 lead (2024 10:48 PM CDT) Ventricular Rate EKG/Min 56 BPM [facility] Atrial Rate 56 BPM [facility] NJ-Interval (MSEC) 148 ms [facility] QRS-Interval (MSEC) 84 ms [facility] QT-Interval (MSEC) 530 ms [facility] QTc 511 ms [facility] P [place] 42 degrees [facility] R [place] -13 degrees [facility] T [place] 23 degrees [facility] Diagnosis Sinus bradycardia Prolonged QT Abnormal ECG Confirmed by Abdelrahman Chowdhury MD ([id number]) on 06/24/2024 6:54:15 PM [facility] 2024 10:4 8 PM CDT 06/24/2024 6:54 PM CDT Braeden Alcantar MD ECG ORDERABLES Final Result Performing Organization Address City/State/[facility] Co de Phone Number [facility] * (ABNORMAL) POC Blood Gas and Chemistries, Arterial - (2024 9:59 PM CDT) pH, Art POC 7.34(L) 7.35 - 7.45 pCO2, Art POC 33(L) 35 - 45 mmHg [facility] pO2, Art POC 83 83 - 108 mmHg [facility] Na, POC 135 135 - 145 mmol/L [facility] K POC 3.7 3.3 - 4.9 mmol/L [facility] Comment: Interpretive Data Not all point of care methods assess for hemolysis. Confirm with instrument and retest K+ if not consistent with clinical signs and symptoms. Current Interpretive Data was last revised on 2023. Cl, POC 109 97 - 110 mmol/L [facility] Ionized Ca, POC 5.02 4.50 - 5.10 mg/dL [facility] Glucose, POC 155 70 - 199 mg/dL [facility] Lactate POC 0.6(L) 0.7 - 2.0 mmol/L [facility] SO2 (chay) arterial 98(H) 90 - 95 % [facility] Base excess, POC -7.1 mmol/L [facility] HCO3, Art POC 18(L) 20 - 30 mmol/L [facility] Hct, POC 32.0(L) 36.3 - 45.3 % [facility] Total Hb, POC 10.6(L) 11.9 - 15.5 g/dL [facility] Blood 2024 9:59 PM CDT 2024 9:59 PM CDT Braeden Alcantar MD LAB POCT ORDERABLES - DEVICE F inal Result [facility] [place] [address] * XR Abdomen Ap 1 Vw (2024 [...] PM CDT Devon [facility] MICROBIOLOGY - [facility] [place] [address] * Hepatitis C antibody Blood (2024 5:02 PM CDT) Pathologist [facility] Hep C Ab Nonreactive Nonreactive Comment:Antibodies to HCV no t detected. Does NOT exclude the possibility of recent exposure to HCV. Current interpretive data was last revised on 21 Blood 2024 5:02 PM CDT 2024 5:30 PM CDT us Devon [facility] LAB MICROBIOLOGY - GENER AL ORDERABLES Final Result Performing Organization Address [facility] [place] [address] * RPR Blood (2024 5:02 PM CDT) [facility] RPR Nonreactive Nonreactive Blood 2024 5:02 PM CDT 2024 5:30 PM CDT us Devon [facility] LAB MICROBIOLOGY - GENER AL ORDERABLES Final Result Performing Organization Address City/[facility] Co de Phone Number [facility] [place] [address] * Hepatitis B Surface Antigen Blood (2024 5:02 PM CDT) [facility] HepBsAg Nonreactive Nonreactive Blood 2024 5:02 PM CDT 2024 5:30 PM CDT us Devon [facility] LAB MICROBIOLOGY - GENER AL ORDERABLES Final Result Performing Organization Address City/[facility] Co de Phone Number [facility] [place] [address] * Lactate (2024 5:00 PM CDT) Lactate 0.7 0.7 - 2.0 mmol/L Blood 2024 5:00 PM CDT 2024 5:31 PM CDT Braeden Alcantar MD LAB BLOOD ORDERABLES Final Res ult Performing Organization Address City/[facility]/ZIP Co de Phone Number [facility] [place] [address] * (ABNORMAL) eGFR (2024 5:00 PM CDT) [...] ORDERABLES Final Res ult Performing Organization Address City/[facility]/ZIP Co de Phone Number [facility] Department [place] [place] [address] * (ABNORMAL) Calcium, ionized (2024 5:00 PM CDT) [facility] Calcium, Ionized 4.43(L) 4.50 - 5.10 mg/dL Blood 2024 5:00 PM CDT 2024 5:37 PM CDT Braeden Alcantar MD LAB BLOOD ORDERABLES Final Res ult Performing Organization Address City/[facility]/ZIP Co de Phone Number [facility] [place] [address] * (ABNORMAL) CBC without differential (2024 5:00 PM CDT) [facility] WBC 7.37 3.80 - 9.90 K/cumm Hgb 10.2(L) 11.9 - 15.5 g/dL [facility] Hct 29.8(L) 35.6 - 45.5 % [facility] Plt 152 150 - 400 K/cumm [facility] MPV 10.9 9.1 - 12.3 fL [facility] RBC 3.20(L) 3.90 - 5.20 M/cumm [facility] MCV 93.1 81.3 - 96.4 fL [facility] MCH 31.9 27.1 - 33.3 pg [facility] MCHC 34.2 32.3 - 35.7 g/dL [facility] RDW CV 14.2 11.1 - 14.9 % [facility] RDW SD 49.1(H) 35.7 - 48.1 fL [facility] NRBC abs 0.00 0.00 - 0.01 K/cumm [facility] Blood 2024 5:00 PM CDT 2024 5:30 PM CDT Braeden Alcantar MD LAB BLOOD ORDERABLES Final Res ult [facility] [place] [address] * Phosphorus (2024 5:00 PM CDT) Pathologist [facility] Phosphorus, pl 2.6 2.3 - 4.5 mg/dL Blood 2024 5:00 PM CDT 2024 5:37 PM CDT Braeden Alcantar MD LAB BLOOD ORDERABLES Final Res ult Performing Organization Address [facility] de Phone Number [facility] [place] [address] * Magnesium (2024 5:00 PM CDT) [facility] Magnesium 1.7 1.4 - 2.5 mg/dL Blood 2024 5:00 PM CDT 2024 5:37 PM CDT Braeden Alcantar MD LAB BLOOD ORDERABLES Final Res ult Performing Organization Address [facility] de Phone Number [facility] [place] [place] [address] * (ABNORMAL) Blood gas, arterial (2024 5:00 PM CDT) Pathologist [facility] pH, Art 7.36 7.35 - 7.45 PCO2, Arterial 34(L) 35 - 45 mmHg [facility] PO2, Arterial 125(H) 83 - 108 mmHg [facility] HCO3 Art (Calculated) 20 20 - 30 mmol/L [facility] BE, art -6 mmol/L [facility] Comment: Interpretive Data No Reference Range Established Current Interpretive Data was last revised on 2017 O2 Sat Art (Measured) 98(H) 90 - 95 % [facility] Blood 2024 5:00 PM CDT 2024 5:22 PM CDT Braeden Alcantar MD LAB BLOOD ORDERABLES Final Res ult [facility] [place] [address] * (ABNORMAL) Basic metabolic panel (2024 5:00 PM CDT) Pathologist [facility] Sodium 142 135 - 145 mmol/L Potassium, pl 3.1(L) 3.3 - 4.9 mmol/L [facility] Chloride 107 97 - 110 mmol/L [facility] CO2 23 22 - 32 mmol/L [facility] Anion gap 12 2 - 15 mmol/L [facility] BUN 15 6 - 25 mg/dL [facility] Creatinine 1.12(H) 0.60 - 1.10 mg/dL [facility] Glucose 126 70 - 199 mg/dL [facility] Comment: Interpretive Data Fasting glucose >/= 126 [...] 2022. Calcium 8.1(L) 8.5 - 10.3 mg/dL [facility] Blood 2024 5:00 PM CDT 2024 5:37 PM CDT us Braeden Alcantar MD LAB BLOOD ORDERABLES Final Res ult [facility] [place] [address] * ECG 12 lead (2024 4:29 PM CDT) Ventricular Rate EKG/Min 63 BPM [facility] Atrial Rate 63 BPM [facility] NJ-Interval (MSEC) 144 ms [facility] QRS-Interval (MSEC) 86 ms [facility] QT-Interval (MSEC) 498 ms [facility] QTc 509 ms [facility] P [place] 17 degrees [facility] R [place] -22 degrees [facility] T [place] 12 degrees [facility] Diagnosis Normal sinus rhythm Minimal voltage criteria for LVH, may be normal variant Prolonged QT Abnormal ECG Confirmed by Abdelrahman Chowdhury MD ([id number]) on 06/24/2024 6:57:56 PM [facility] 2024 4:29 PM CDT 06/24/2024 6:57 PM CDT us Braeden Alcantar MD ECG ORDERABLES Final Result [facility] * (ABNORMAL) POC Blood Gas and Chemistries, Arterial - (2024 3:47 PM CDT) pH, Art POC 7.42 7.35 - 7.45 pCO2, Art POC 31(L) 35 - 45 mmHg [facility] pO2, Art POC 158(H) 83 - 108 mmHg [facility] Na, POC 139 135 - 145 mmol/L [facility] K POC 2.9(L) 3.3 - 4.9 mmol/L [facility] Comment: Interpretive Data Not all point of care methods assess for hemolysis. Confirm with instrument and retest K+ if not consistent with clinical signs and symptoms. Current Interpretive Data was last revised on 2023. Cl, POC 112(H) 97 - 110 mmol/L [facility] Ionized Ca, POC 4.44(L) 4.50 - 5.10 mg/dL [facility] Glucose, POC 116 70 - 199 mg/dL [facility] Lactate POC 1.2 0.7 - 2.0 mmol/L [facility] SO2 (chya) arterial 100(H) 90 - 95 % [facility] Base excess, POC -3.6 mmol/L [facility] HCO3, Art POC 20 20 - 30 mmol/L [facility] Hct, POC 31.0(L) 36.3 - 45.3 % [facility] Total Hb, POC 10.3(L) 11.9 - 15.5 g/dL [facility] Blood 2024 3:47 PM CDT 2024 3:47 PM CDT Braeden Alcantar MD LAB POCT ORDERABLES - DEVICE F inal Result Performing Organization Address City/[facility]/ZIP Co de Phone Number [facility] [place] [address] * FL Fluoroscopy < 1 Hour (2024 3:20 PM CDT) Narrative [facility] - 2024 3:20 PM CDT The images from this study are not interpreted by Radiology. Please refer to the physician's procedure / OR operative note. Chelsea Haywood MD IMG FLUOROSCOPY PROCEDURES Fin al Result Performing Organization Address [facility] Co de Phone Number [facility] * (ABNORMAL) Urine culture Urine, bladder (2024 [...] (clinically insignificant growth. (.) Organism ESCHERICHIA COLI [facility] Urine, bladder 2024 3: 20 PM CDT 2024 5:31 PM CDT Narrative [facility] - 06/27/2024 10:28 AM CDT URINE CULTURE Indications for Culture:->Urology patient Testing performed by [facility] ([phone]) Organism Antibiotic Method Susceptibility Escherichia coli Ampicillin [...] Edited Result - Final Performing Organization Address City/[facility]/ZIP Co de Phone Number [facility] [place] [address] * Lactate (2024 1:07 PM CDT) Pathologist [facility] Lactate 0.8 0.7 - 2.0 mmol/L Blood 2024 1:07 PM CDT 2024 1:40 PM CDT us Lyla Jenkins NP LAB BLOOD ORDERABLES Final Res ult Performing Organization Address [facility] Co de Phone Number [facility] Department [place] [place] [address] * (ABNORMAL) eGFR (2024 1:07 PM CDT) [...] 2024 2:06 PM CDT us Lyla Jenkins MECHANICAL SERVICE REPRESENTATIVE LAB BLOOD ORDERABLES Final Res ult Performing Organization Address City/[facility]/ZIP Co de Phone Number [facility] [place] [address] * (ABNORMAL) CBC without differential (2024 1:07 PM CDT) WBC 7.70 3.80 - 9.90 K/cumm Hgb 10.6(L) 11.9 - 15.5 g/dL [facility] Hct 30.6(L) 35.6 - 45.5 % [facility] Plt 161 150 - 400 K/cumm [facility] MPV 11.0 9.1 - 12.3 fL [facility] RBC 3.31(L) 3.90 - 5.20 M/cumm [facility] MCV 92.4 81.3 - 96.4 fL [facility] MCH 32.0 27.1 - 33.3 pg [facility] MCHC 34.6 32.3 - 35.7 g/dL [facility] RDW CV 14.3 11.1 - 14.9 % [facility] RDW SD 49.0(H) 35.7 - 48.1 fL [facility] NRBC abs 0.00 0.00 - 0.01 K/cumm [facility] Blood 2024 1:07 PM CDT 2024 2:06 PM CDT us Lyla Jenkins NP LAB BLOOD ORDERABLES Final Res ult Performing Organization Address City/[facility]/ZIP Co de Phone Number [facility] [place] [address] * (ABNORMAL) Basic metabolic panel (2024 1:07 PM CDT) Sodium 139 135 - 145 mmol/L Potassium, pl 3.3 3.3 - 4.9 mmol/L [facility] Chloride 108 97 - 110 mmol/L [facility] CO2 21(L) 22 - 32 mmol/L [facility] Anion gap 10 2 - 15 mmol/L [facility] BUN 16 6 - 25 mg/dL [facility] Creatinine 1.21(H) 0.60 - 1.10 mg/dL [facility] Glucose 100 70 - 199 mg/dL [facility] Comment: Interpretive Data Fasting glucose >/= 126 [...] 2022. Calcium 7.8(L) 8.5 - 10.3 mg/dL [facility] Blood 2024 1:07 PM CDT 2024 2:06 PM CDT us Lyla Jenkins NP LAB BLOOD ORDERABLES Final Res ult [facility] [place] [address] * Urine culture Urine, clean voided (2024 8:45 AM CDT) Pathologist [facility] Report Final Report: Less than 100,000 colonies/mL (clinically insignificant growth based on current clinical standards) Organism (CLINICALLY INSIGNIFICANT GROWTH [facility] Urine, clean voided 2024 8:45 AM CDT 2024 9:43 AM CDT Narrative [facility] - 06/22/2024 12:09 PM CDT Indications for Culture:->Recent positive UA Testing performed by [facility] ([phone]) Braeden Alcantar MD LAB MICROBIOLOGY - GENERAL ORD ERABLES Final Result [facility] [place] [address] * (ABNORMAL) Urinalysis reflex to microscopic (2024 8:32 AM CDT) Color, ur Yellow Yellow Clarity, ur Turbid(A) Clear [facility] Specific gravity, ur 1.017 1.003 - 1.030 [facility] pH, urine 6.0 [facility] Comment: Interpretive Data U rine pH is affected by diet, medications, systemic acid-base disturbances, and renal tubular function. pH may affect urinary stone formation. For example, urine pH below 6.0 may help reduce the tendency for calcium phosphate stones and pH greater than 6.0 may reduce the tendency for uric acid stone formation. Source: [facility] Current Interpretive Data was last revised on 2017 Protein, ur ql 2+(A) Negative [facility] Glucose, ur ql Negative Negative [facility] Ketones, ur 1+(A) Negative [facility] Bilirubin, ur Negative Negative [facility] Blood, ur 1+(A) Negative [facility] Urobilinogen, ur <2.0 <2.0 mg/dL [facility] Nitrite, ur Positive(A) Negative [facility] Leukocyte esterase, ur 3+(A) Negative [facility] UA reflex comment Reflex to microscopic UA will be performed. [facility] Urine 2024 8:32 AM CDT 2024 9:19 AM CDT Braeden Alcantar MD LAB URINE ORDERABLES Final Res ult Performing Organization Address City/[facility]/ZIP Co de Phone Number [facility] [place] [address] * (ABNORMAL) Urinalysis, microscopic only (2024 8:32 AM CDT) WBC, ur >50(A) 0 - 5 /HPF RBC, ur 6-10(A) 0 - 2 /HPF [facility] Epithelial cells, squamous, ur 1-5 0 - 5 /HPF [facility] Bacteria, ur 4+(A) [facility] Urine 2024 8:32 AM CDT 2024 9:19 AM CDT Braeden Alcantar MD LAB URINE ORDERABLES Final Res ult Performing Organization Address [facility] Co de Phone Number [facility] [place] [address] * [place] Kidney Complete (2024 12:33 AM [...] by: Yojana Perez M.D. Miko Edwards MD [facility] US PROCEDURES Final Result * Check Sample (06/20/2024 11:13 PM CDT) ABO Rh A Negative [facility] OTHER 06/20/2024 11:1 3 PM CDT 06/20/2024 11:45 PM CDT us Carlos Palomares MD LAB BLOOD ORDERABLES Shanell l Result [facility] Department [place] [address] [facility] * XR Chest 1 Vw Portable (06/20/2024 [...] images may or may not represent the [place] source data set and thus may contain [...] IMAGING STUDY STUDY INITIALLY PERFORMED: 06/20/2024 at [facility]. TYPE OF STUDY: Multiple CT images of [...] IMAGING STUDY STUDY INITIALLY PERFORMED: 06/20/2024 at [facility]. TYPE OF STUDY: Multiple CT images of [...] images may or may not represent the [place] source data set and thus may contain [...] only and have not been reviewed by [facility]. There will be no report generated by a [facility] Radiologist. Narrative [facility] - 06/20/2024 10:49 PM CDT EXAMINATION: Images For Reference Purposes Only Marc Grijalva MD IM CT PROCEDURES Final Result [facility] * ECG 12-LEAD (06/20/2024 10:46 PM CDT) Narrative [facility] - 06/20/2024 10:46 PM CDT Carlos Palomares [...] evidence of acuteischemia. Carlos Palomares MD 06/20/24 1030 Miko Edwards MD ECG ORDERABLES Final R esult Performing Organization Address City/[facility]/ZIP Co de Phone Number [facility] * Sepsis Lactate w/ Reflex (06/20/2024 10:38 PM CDT) [facility] Sepsis Lactate 1.1 0.7 - 2.0 mmol/L Blood 06/20/2024 10:3 8 PM CDT 06/20/2024 10:42 PM CDT Carlos Palomares MD LAB BLOOD ORDERABLES Shanell l Result Performing Organization Address [facility] Co de Phone Number [facility] [place] [address] * POCT glucose (06/20/2024 10:27 PM CDT) [facility] Glucose, POC 162 70 - 199 mg/dL Blood 06/20/2024 10:2 7 PM CDT 06/20/2024 10:27 PM CDT Carlos Palomares MD LAB POCT ORDERABLES - DEV ICE Final Result Performing Organization Address [facility] de Phone Number [facility] Department [place] [address] * (ABNORMAL) eGFR (06/20/2024 10:24 PM CDT) [facility] eGFR 37(L) >=60 mL/min/1. 73 m2 [...] 4 PM CDT 06/20/2024 10:35 PM CDT us Miko Edwards MD LAB BLOOD ORDERABLES Fi nal Result [facility] [place] [address] * (ABNORMAL) Differential, auto (06/20/2024 10:24 PM CDT) Neutrophil abs 8.00(H) 1.50 - 6.50 K/cumm Imm gran abs 0.12(H) 0.00 - 0.10 K/cumm [facility] Lymphocyte abs 1.11 0.80 - 3.30 K/cumm [facility] Monocyte abs 1.06(H) 0.20 - 0.80 K/cumm [facility] Eosinophil abs 0.00 0.00 - 0.50 K/cumm [facility] Basophil abs 0.04 0.00 - 0.10 K/cumm [facility] Neutrophil pct 77.4 % [facility] Comment: Interpretive Data Percent cell count reference ranges are not reported, since discordance with absolute values may lead to misinterpretation of CBC data. Current Interpretive Data was last revised on 2017. Imm gran pct 1.2 % [facility] Comment: Interpretive Data Percent cell count reference ranges are not reported, since discordance with absolute values may lead to misinterpretation of CBC data. Current Interpretive Data was last revised on 2017. Lymphocyte pct 10.7 % [facility] Comment: Interpretive Data Percent cell count reference ranges are not reported, since discordance with absolute values may lead to misinterpretation of CBC data. Current Interpretive Data was last revised on 2017. Monocyte pct 10.3 % [facility] Comment: Interpretive Data Percent cell count reference ranges are not reported, since discordance with absolute values may lead to misinterpretation of CBC data. Current Interpretive Data was last revised on 2017. Eosinophil pct 0.0 % [facility] Comment: Interpretive Data Percent cell count reference ranges are not reported, since discordance with absolute values may lead to misinterpretation of CBC data. Current Interpretive Data was last revised on 2017. Basophil pct 0.4 % [facility] Comment: Interpretive Data Percent cell count reference ranges are not reported, since discordance with absolute values may lead to misinterpretation of CBC data. Current Interpretive Data was last revised on 2017. Blood 06/20/2024 10:2 4 PM CDT 06/20/2024 10:35 PM CDT Miko Edwards MD LAB BLOOD ORDERABLES nal Result [facility] [place] [address] * Respiratory pathogen panel Nasopharyngeal (06/20/2024 10:24 PM CDT) Pathologist [facility] Influenza A RNA Not Detected Not Detected Influenza B RNA Not Detected Not Detected [facility] RSV RNA Not Detected Not Detected [facility] COVID-19 RNA Not Detected Not Detected [facility] Coronavirus 229E RNA Not Detected Not Detected [facility] Coronavirus HKU1 RNA Not Detected Not Detected [facility] Coronavirus NL63 RNA Not Detected Not Detected [facility] Coronavirus OC43 RNA Not Detected Not Detected [facility] Adenovirus DNA Not Detected Not Detected [facility] Metapneumovirus RNA Not Detected Not Detected [facility] Rhinovirus/Enterov irus RNA Not Detected Not Detected [facility] Parainfluenza 1 RNA Not Detected Not Detected [facility] Parainfluenza 2 RNA Not Detected Not Detected [facility] Parainfluenza 3 RNA Not Detected Not Detected [facility] Parainfluenza 4 RNA Not Detected Not Detected [facility] B. pertussis DNA Not Detected Not Detected [facility] B. parapertussis DNA Not Detected Not Detected [facility] C. pneumoniae DNA Not Detected Not Detected [facility] M. pneumoniae DNA Not Detected Not Detected [facility] Nasopharyngeal 06/20/2024 10 :24 PM CDT 06/20/2024 10:40 PM CDT Narrative CERNER BJ - 06/20/2024 11:35 PM CDT Is the Patient experiencing symptoms consistent with COVID?->No Surveillance testing for transplant patient?->No Interpretive Data The Niko Niko FilmArray Respiratory Panel (RP2.1) assay is a [...] assay has FDA clearance for testing of MECHANICAL SERVICE REPRESENTATIVE swabs. The performance of additional specimen types has been assessed by the performing laboratory. The performance characteristics of this assay have been determined by [facility] Molecular Infectious Disease Laboratory. Current interpretive data was last revised on 21. Miko Edwards MD LAB MICROBIOLOGY - [facility] ORDERABLES Final Result [facility] [place] [address] * (ABNORMAL) CBC with auto differential (06/20/2024 10:24 PM CDT) WBC 10.33(H) 3.80 - 9.90 K/cumm Hgb 10.6(L) 11.9 - 15.5 g/dL [facility] Hct 31.6(L) 35.6 - 45.5 % [facility] Plt 167 150 - 400 K/cumm [facility] MPV 10.3 9.1 - 12.3 fL [facility] RBC 3.37(L) 3.90 - 5.20 M/cumm [facility] MCV 93.8 81.3 - 96.4 fL [facility] MCH 31.5 27.1 - 33.3 pg [facility] MCHC 33.5 32.3 - 35.7 g/dL [facility] RDW CV 14.0 11.1 - 14.9 % [facility] RDW SD 47.5 35.7 - 48.1 fL [facility] NRBC abs 0.02(H) 0.00 - 0.01 K/cumm [facility] Blood 06/20/2024 10:2 4 PM CDT 06/20/2024 10:35 PM CDT Miko Edwards MD LAB BLOOD ORDERABLES Fi nal Result Performing Organization Address [facility]/ZIP Co de Phone Number [facility] [place] [address] * Blood culture Blood Peripheral (06/20/2024 10:24 PM CDT) Report Final Report: No growth Blood (Peripheral) 06/20/2024 10:24 PM CDT 06/20/2024 10:37 PM CDT Narrative [facility] - 06/25/2024 7:01 AM CDT From a [...] performance characteristics have been verified by the [facility]biology [facility]. For questions about this culture, contact the Microbiology Laboratory at [phone]. Interpretive data was last revised on 23. Miko Edwards MD LAB MICROBIOLOGY - [facility] ORDERABLES Final Result Performing Organization Address City/[facility]/ZIP Co de Phone Number [facility] Department [place] [address] * Blood culture Blood Peripheral (06/20/2024 10:24 PM CDT) Report Final Report: No growth Blood (Peripheral) 06/20/2024 10:24 PM CDT 06/20/2024 10:38 PM CDT Narrative [facility] - 06/25/2024 7:01 AM CDT Draw Blood [...] performance characteristics have been verified by the [facility]. For questions about this culture, contact the Microbiology Laboratory at [phone]. Interpretive data was last revised on 23. Miko Edwards MD LAB MICROBIOLOGY - [facility] ORDERABLES Final Result [facility] Department [place] [address] * aPTT (06/20/2024 10:24 PM CDT) aPTT [...] nal Result Performing Organization Address [facility] de Phone Number [facility] [place] [address] * (ABNORMAL) Protime-INR (06/20/2024 10:24 PM CDT) PT 13.5(H) 9.7 - 13.0 sec INR 1.24(H) 0.90 - 1.20 [facility] Comment: Interpretive data Oral anticoagulant therapeutic ranges: [...] nal Result Performing Organization Address [facility] de Phone Number [facility] [place] [address] * Type and screen (06/20/2024 10:24 PM CDT) ABO Rh A Negative Jeanette, indirect Negative [facility] Blood 06/20/2024 10:2 4 PM CDT 06/20/2024 10:42 PM CDT Narrative [facility] - 06/20/2024 11:43 PM CDT Has the patient had Daratumumab or Isatuximab in the past 6 months?->Unknown Miko Edwards MD LAB BLOOD BANK TEST ORD ERABLES Final Result [facility] [place] [address] * (ABNORMAL) Basic metabolic panel (06/20/2024 10:24 PM CDT) Pathologist [facility] Sodium 138 135 - 145 mmol/L Potassium, pl 3.3 3.3 - 4.9 mmol/L [facility] Chloride 106 97 - 110 mmol/L [facility] CO2 22 22 - 32 mmol/L [facility] Anion gap 10 2 - 15 mmol/L [facility] BUN 19 6 - 25 mg/dL [facility] Creatinine 1.56(H) 0.60 - 1.10 mg/dL [facility] Glucose 134 70 - 199 mg/dL [facility] Comment: Interpretive Data Fasting glucose >/= 126 [...] 2022. Calcium 7.2(L) 8.5 - 10.3 mg/dL [facility] Blood 06/20/2024 10:2 4 PM CDT 06/20/2024 10:35 PM CDT Miko Edwards MD LAB BLOOD ORDERABLES Fi nal Result Performing Organization Address [facility]/ZIP Co de Phone Number [facility] [place] [address] * COLONOSCOPY (07/18/2017 9:10 AM CDT) Anatomical Region Laterality Modality Other Narrative Procedure Note Mike Locke MD - 07/18/2017 9:10 AM CDT [facility] Patient Name: Juli Koo Procedure Date: 07/18/2017 9:10 AM Date of : 1960 Admit Type: Outpatient Age: 57 Gender: Female Attending MD: Mike Locke MD Room: [facility] ENDOSCOPY CAPSULE Note Status: Finalized Patient [...] passed under direct vision.The Pediatric Colonoscope PCF-H190L [id number] was introduced through the anus and advanced [...] 9:10 AM Procedure Code(s): --- Professional --- 99583, Colonoscopy, flexible; diagnostic, including collection of specimen(s) by brushing or washing, when performed (separateprocedure) Diagnosis Code(s): --- Professional --- Z86.010, Personal history of colonic polyps K64.8, Other hemorrhoids K57.30, Diverticulosis of large intestine without perforation orabscess without bleeding CPT copyright 2017 [employer]. All rights reserved. The codes documented in this report are preliminary and upon health information coder reviewmay be revised to meet current compliance requirements. Recognized by the [employer] for promoting quality in endoscopy Mike Locke MD ENDOSCOPY PROCEDURES Final Result from Last 3 Months or Most Recently Relevant to Health Maintenance Additional Health Concerns Infection Onset Date Last Indicated MDR gram neg/ESBL 2024 20[id number] [place] [address] [facility] [employer] [facility] Advance Directives For more information, please contact: [phone] * Full Code (Latest Code Status on [...] 8:32 AM 07/18/2017 12:39 PM Care Teams Silk Trimmer Relationship Specialty Start Date End Date Yancy Guerrero MD [address] [place] [address] PCP - General 05/22/16 Lupillo Reyes MD [address] [address] Consulting Physician Orthopedic Surgery 07/26/22
--- OUTSIDE RECORDS SUMMARY | 2024-07-12 20:55 | XMS_ITS | Encounter Summary ---
Author Organization [facility] Healthcare Address [address] [place] [address] Care Team Providers Care Candy Forming Machine Operator Name Role Phone Yancy Guerrero MD Primary Care Provider + [phone] Lupillo Reyes MD Unavailable [phone] Encounter Details Date Type Department Care Team (Late st Contact Info) Description 06/20/2024 Hospital Encounter [facility] ADMIT [address] [place] [address] Social History Tobacco Use Types Packs/Day Years Used Date Smoking Tobacco: Every Day Cigarettes 0.2 2 Smokeless Tobacco: Never Comments:Two packs per week for last 2 years Alcohol Use Standard Drinks/Week Comments Yes 0 (1 standard drink = 0.6 oz pur e alcohol) socially [facility] Utilities Answer Date Recorded In the past 12 months has [employer], gas, oil, or water company threatened to [...] often do you attend chur ch or synagogue services? 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 Monthly or less 07/05/2024 12:06 PM BRIENT Alea Craig RN Q2: How many drinks containing alcohol do you have on a typical day when you are drinking? 1 or 2 07/05/2024 12:06 PM CDT Alea Craig RN Q3: How often do you have six or more drinks on one occasion? Less than monthly 07/05/2024 12:06 PM CDT Alea Craig RN documented as of this encounter Plan of Treatment Upcoming Encounters Date Type Department Care Team (Late st Contact Info) Description 07/19/2024 12:00 PM CDT Hospital Encounter [facility] Operating Room [address] [place] [address] Rob Kline MD [address] [facility] [address] 07/19/2024 12:00 PM CDT Anesthesia Event [facility] Operating Room [address] [place] [address] Nabila Martinez, YENI [address] [place] [address] [place] [address] 07/19/2024 12:00 PM CDT - 07/19/2024 1:00 PM CDT Surgery [facility] Operating Room [address] [place] [address] Rob Kline MD [address] [facility] [place] [address] URETEROSCOPY Scheduled Procedures Name Priority Associated Diagnoses Date/Ti mo URETEROSCOPY Right kidney stone 07/19/2024 12:00 PM [...] documented as of this encounter Care Teams Candy Forming Machine Operator Relationship Specialty Start Date End Date Yancy Guerrero MD [address] [place] [address] PCP - General 05/22/16 Lupillo Reyes MD [address] [address] Consulting Physician Orthopedic Surgery 07/26/22 documented as of this encounter
--- OUTSIDE RECORDS SUMMARY | 2024-07-12 20:55 | XMS_ITS | Encounter Summary ---
Author Organization [facility] Address [address] [place] [address] Phone Care Team Providers Care Delivery Analyst Name Role Phone Yancy Guerrero MD Primary Care Provider + [phone] Lupillo Reyes MD Unavailable [phone] Encounter Details Date Type Department Care Team (Late st Contact Info) Description 06/24/2024 Telephone [facility] Cardiology [address] [facility] Advanced Medicine 8th [place] [address] [place] [address] Pat Calvo Social History Tobacco Use Types Packs/Day Years Used Date Smoking Tobacco: Every Day Cigarettes 0.2 2 Smokeless Tobacco: Never Comments:Two packs per week for last 2 years Alcohol Use Standard Drinks/Week Comments Yes 0 (1 standard drink = 0.6 oz pur e alcohol) socially [facility] Utilities Answer Date Recorded In the past 12 months has [employer], gas, oil, or water [employer] threatened to shut off services in your [...] week 06/02/2023 How often do you attend [facility] or islam services? More than 4 times per year [...] on file Legal 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 SCALLOP RAKER Gender Identity Not on file Sexual Orientation [...] CONSULT: general CALLER'S NAME: Rosalinda CALLER'S PAGER: [phone] PATIENT'S NAME: Camille Shultz : 1960 CAMPUS: [place] PATIENT'S LOCATION: [facility] REASON FOR CONSULT: Management of Bradycardia ATTENDING PHYSICIAN: Dr. Steinberg documented in this encounter Plan of Treatment Upcoming Encounters Date Type Department Care Team (Late st Contact Info) Description 07/19/2024 12:00 PM CDT Hospital Encounter [facility] Operating Room [address] [place] [address] Rob Kline MD [address] [place] [address] 07/19/2024 12:00 PM CDT Anesthesia Event [facility] Operating Room [address] [place] [address] Nabila Martinez NP [address] [place] [address] [place] [address] 07/19/2024 12:00 PM CDT - 07/19/2024 1:00 PM CDT Surgery [facility] Operating Room [address] [place] [address] Rob Kline MD [address] [facility] [place] [address] URETEROSCOPY Scheduled Procedures Name Priority Associated Diagnoses [...] documented as of this encounter Care Teams Delivery Analyst Relationship Specialty Start Date End Date Yancy Guerrero MD [address] [place], [place] [id number] PCP - General 05/22/16 Lupillo Reyes MD [address] [facility] [address] [place] [address] Consulting Physician Orthopedic Surgery 07/26/22 documented as of this encounter
--- OUTSIDE RECORDS SUMMARY | 2024-07-12 20:55 | XMS_ITS | Encounter Summary ---
Author Organization [facility] Address [address] [place] [address] Care Team Providers Care Photo Editor Name Role Phone Yancy Guerrero MD Primary Care Provider + Encounter Details Date Type Department Care Team (Latest Contact Info) Description 05/26/2005 Outpatient Historical HIS [facility] Tod Cifuentes MD [address] [facility] [address] [place] [address] Other Screening Mammogram (Primary Dx) Social History Tobacco Use Types Packs/Day Years Used Date Smoking Tobacco: Never Assessed Comments Unknown Sex and Gender Information Value Date Recorded Sex Assigned at Not on file Legal Sex Female 4:27 AM ENVIRONMENT COORDINATOR Gender Identity Not on file Sexual Orientation Not on file documented as of this encounter Plan of Treatment Not on file documented as of this encounter Visit Diagnoses Diagnosis Other screening mammogram- Primary documented in this encounter Care Teams Photo Editor Relationship Specialty Start Date End Date Yancy Guerrero MD [address] [place] [address] PCP - General Internal Medicine 09/22/14 documented as of this encounter
--- OUTSIDE RECORDS SUMMARY | 2024-07-12 20:55 | XMS_ITS | Encounter Summary ---
Author Organization [facility] Address [address] [place] [address] Phone Care Team Providers Care Gas Welder Apprentice Name Role Phone Yancy Guerrero MD Primary Care Provider + [phone] Lupillo Reyes MD Unavailable [phone] Encounter Details Date Type Department Care Team (Late st Contact Info) Description 06/24/2024 Documentation [facility] Urology [address] [facility] [address] [place] [address] Chelsea Haywood MD [address] [facility] [address] [place], [place] [id number] Social History Tobacco Use Types Packs/Day Years Used Date Smoking Tobacco: Every Day Cigarettes 0.2 2 Smokeless Tobacco: Never Comments:Two packs per week for last 2 years Alcohol Use Standard Drinks/Week Comments Yes 0 (1 standard drink = 0.6 oz pur e alcohol) socially [facility] Utilities Answer Date Recorded In the past 12 months has [employer] electric, gas, oil, or water company threatened [...] often do you attend chur ch or advent services? More than 4 times per year 06/02/2023 Do you belong to any clubs o r organizations such as shinto groups, unions, fraternal or athletic groups, or [...] place to sleep or slept in a mcc (including now)? No 06/02/2023 Personal Safety Answer Date Recorded Have you ever been in or are you currently in a harmful physical or emotional relationship or is someone making you feel afraid or unsafe? 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 BUYERS' AGENT Gender Identity Not on file Sexual Orientation [...] diff and platelet, CMP Fax Labs To: [facility] ([phone]) Call For a Change in Clinical Status, Critical/Abnormal Results, or Order Verification: [facility] ([phone]) OPAT Summary of Consult Summary of Consult: 64 y.o. female with pmh anxiety/depression, AF (Xarelto), HTN, HLD transferred from [facility] for higher level of care. Had Right [...] Description 07/19/2024 12:00 PM CDT Hospital Encounter [facility] Operating Room [address] [place] [address] Rob Kline MD [address] [facility] [place] [address] 07/19/2024 12:00 PM CDT Anesthesia Event [facility] Operating Room [address] [place] [address] Nabila Martinez NP [address] [place] [address] [place] [address] 07/19/2024 12:00 PM CDT - 07/19/2024 1:00 PM CDT Surgery [facility] Operating Room [address] [place] [address] Rob Kline MD [address] [facility] [place] [address] URETEROSCOPY Scheduled Procedures Name Priority Associated Diagnoses [...] documented as of this encounter Care Teams Gas Welder Apprentice Relationship Specialty Start Date End Date Yancy Guerrero MD [address] [place] [address] PCP - General 05/22/16 Lupillo Reyes MD [address] [facility] [address] [place] [address] Consulting Physician Orthopedic Surgery 07/26/22 documented as of this encounter
--- OUTSIDE RECORDS SUMMARY | 2024-07-12 20:55 | XMS_ITS | Encounter Summary ---
Author Organization [facility] Address [address] [place] [address] Care Team Providers Care Solid Waste Manager Name Role Phone Yancy Guerrero MD Primary Care Provider + Encounter Details Date Type Department Care Team (Latest Contact Info) Description 05/10/2004 Outpatient Historical HIS [facility] Tod Cifuentes MD [address] [facility] [address] [place] [address] SCREENING MAMM-MAILG NEOPL-OTHER (Primary Dx) Social History Tobacco Use Types Packs/Day Years Used Date Smoking Tobacco: Never Assessed Comments Unknown Sex and Gender Information Value Date Recorded Sex Assigned at Not on file Legal Sex Female 4:27 AM REGIONAL EHS MANAGER Gender Identity Not on file Sexual Orientation Not on file documented as of this encounter Plan of Treatment Not on file documented as of this encounter Visit Diagnoses Diagnosis Other screening mammogram- Primary documented in this encounter Care Teams Solid Waste Manager Relationship Specialty Start Date End Date Yancy Guerrero MD [address] [place] [address] PCP - General Internal Medicine 09/22/14 documented as of this encounter
--- OUTSIDE RECORDS SUMMARY | 2024-07-12 20:55 | XMS_ITS | Continuity of Care Document ---
Author Organization [facility] Address [address] [facility] [address] [place] [address] Phone Care Team Providers Care Army Senior Officer Name Role Phone Lupillo Reyes MD [...] Date Provider Providers Copied on Encounter [facility], [address], [id number], [place] [phone] [facility] No Information 4 Eric Wesley. [address] [address], [place], [place], [id number] , [place]. tel: [phone] [facility], [address], [id number], [place] tel:[phone] [facility] No Information 4 Eric Wesley. [address], [id number] , [place]. tel: [phone] Office/outpat ient visit,est, [facility], [address], [id number], [place] [phone] Rt Shoulder (chief complaint) Complete rotatr-cuff tear/ruptr of r shoulder, not trauma 4 Eric Wesley. [address], [id number] , [place]. tel: [phone] Office/outpat ient visit,est, [facility], [address], [id number], [place] tel:[phone] Right shoulder (chief complaint) Complete rotatr-cuff tear/ruptr of r shoulder, not trauma 3 Eric Wesley. [address] [facility] [address] [place] [address], [place], [place], [id number] , [place]. tel: [phone] Office/outpat ient visit,est, [facility], [address], [id number], [place] tel:[phone] Follow up (chief complaint) Complete rotatr-cuff tear/ruptr of r shoulder, not trauma 3 Eric Wesley. [address] [facility], [address] [place] [address], [place], [place], [id number] , [place]. tel: [phone] Office/outpat ient visit,est, mod [facility], [address] [address], [place], [place], [id number], [place] tel:[phone] Orthopedic myTips Post op check up (chief complaint) Complete rotatr-cuff tear/ruptr of r shoulder, not trauma 3 Eric Wesley. [address] [facility], [address] [place] [address], [place], [place], [id number] , [place]. tel: [phone] [facility], [address] [place] [address], [id number], [place] tel:[phone] [facility] Right shoulder (chief complaint) Complete rotatr-cuff tear/ruptr of r shoulder, not trauma 3 Eric Wesley. [address] [facility], [address] [place] [address], [place], [place], [id number] , [place]. tel: [phone] [facility], [address], [id number], [place] tel:[phone] [facility]ips Right shoulder (chief complaint) Complete rotatr-cuff tear/ruptr of r shoulder, not trauma 3 Eric Wesley. [address] [facility], [address], [id number] , [place]. tel: [phone] [facility], [address] [place] [address], [id number], [place] tel:[phone] [facility] No Information 3 rEic Wesley. [address] [facility], [address] [place] [address], [place], [place], [id number] , [place]. tel: [phone] [facility], [address] [place] [address], [id number], [place] tel:[phone] [facility] Complete rotatr-cuff tear/ruptr of r shoulder, not trauma 3 Eric Wesley. [address] [facility], [address], [place], [place], [id number] , [place]. tel:[phone] Office consultation, moderate [facility], [address] [facility], [place], [place], [id number], [place] tel:[phone] [facility] Right shoulder muscle tear/pain (chief complaint) Complete rotatr-cuff tear/ruptr of r shoulder, not trauma 3 Eric Lupillo. [address] [facility], [address], [place], [place], [id number] , [place]. [phone] Referring Provider: Lupillo Mueller, [address] [facility] [address], [place], [address] . tel:[phone] Family History Family Member Type Diagnosis Age [...] type Covered constitution party ID Authoriza tion(s) [facility] Workers Compensation Adm WC [id number] Social History Type Description Quantity Date [...]
--- OUTSIDE RECORDS SUMMARY | 2024-07-12 20:55 | XMS_ITS | Encounter Summary ---
Author Organization [facility] Address [address] [facility] [address] [place] [address] Phone Care Team Providers Care Stenographer Secretary Name Role Phone Yancy Guerrero MD Primary Care Provider + [phone] Lupillo Reyes MD Unavailable [phone] Encounter Details Date Type Department Care Team (Latest Contact Info) Description 04/10/2013 Orders Only [facility] Wendy Choudhary, ISAIAS [address] [facility] [address] [place], [place] [id number] Social History Tobacco Use Types Packs/Day Years Used Date Smoking Tobacco: Never Assessed Comments Unknown Sex and Gender Information Value Date Recorded Sex Assigned at Not on file Legal 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 PHOTO JOURNALIST Gender Identity Not on file Sexual Orientation Not on file documented as of this encounter Plan of Treatment Upcoming Encounters Date Type Department Care Team (Late st Contact Info) Description 07/19/2024 12:00 PM CDT Hospital Encounter [facility] Operating Room [address] [place] [address] Rob Kline MD [address] [facility] [place] [address] 07/19/2024 12:00 PM CDT Anesthesia Event [facility] Operating Room [address] [place] [address] Nabila Martinez NP [address] [place] [address] [place] [address] 07/19/2024 12:00 PM CDT - 07/19/2024 1:00 PM CDT Surgery [facility] Operating Room [address] [place] [address] Rob Kline MD [address] [place] [address] URETEROSCOPY Scheduled Procedures Name Priority Associated Diagnoses [...] Scan (04/10/2013) Anatomical Region Laterality Modality Other Wendy Choudhary RN CV CARDIAC SERVICES P ROCEDURES Final Result documented in this encounter Visit Diagnoses Not on filedocumented in this encounter Additional Health Concerns Infection Onset Date Last Indicated Resolved Time COVID19 05/14/2019 05/14/2019 05/15/2019 11:2 1 AM CDT COVID: Suspected 12/06/2019 12/06/2019 12/20/2019 3:05 AM PHOTO JOURNALIST COVID: Suspected 01/14/2021 01/14/2021 01/14/2021 9:43 PM PHOTO JOURNALIST COVID: Suspected 01/17/2021 01/17/2021 01/18/2021 5:33 AM PHOTO JOURNALIST COVID: Suspected 08/06/2021 08/06/2021 08/07/2021 3:05 AM CDT COVID: Suspected 08/06/2021 08/06/2021 08/07/2021 3:18 AM CDT COVID19 08/06/2021 08/06/2021 08/16/2021 3:05 AM CDT COVID: Recovered Comment:Added based on recent COVID infection. 08/16/2021 08/16/2021 12/14/2021 3:05 AM C DT COVID: Suspected 09/23/2021 09/23/2021 09/23/2021 10:56 PM CDT COVID: Suspected 09/29/2021 09/29/2021 09/29/2021 10:32 PM CDT COVID: Suspected 12/24/2021 12/25/2021 12/25/2021 3:05 AM PHOTO JOURNALIST COVID: Suspected 12/25/2021 12/25/2021 12/26/2021 3:05 AM PHOTO JOURNALIST COVID: Suspected 12/25/2021 12/25/2021 12/26/2021 3:49 PM PHOTO JOURNALIST MDR gram neg/ESBL 2024 2024 documented as of this encounter Care Teams Stenographer Secretary Relationship Specialty Start Date End Date Yancy Guerrero MD [address] [place] [address] PCP - General 05/22/16 Lupillo Reyes MD [address] [address] Consulting Physician Orthopedic Surgery 07/26/22 documented as of this encounter
--- OUTSIDE RECORDS SUMMARY | 2024-07-12 20:55 | XMS_ITS | Encounter Summary ---
Author Organization [facility] Address [address] [place] [address] Phone Care Team Providers Care Corporate Auditor Name Role Phone Yancy Guerrero MD Primary Care Provider + [phone] Lupillo Reyes MD Unavailable [phone] Encounter Details Date Type Department Care Team (Late st Contact Info) Description 07/11/2024 Telephone [facility] Surgery [address] [place] [address] Cassie Bee, EMT Social History Tobacco Use Types Packs/Day Years Used Date Smoking Tobacco: Every Day Cigarettes 0.2 2 Smokeless Tobacco: Never Comments:Two packs per week for last 2 years Alcohol Use Standard Drinks/Week Comments Yes 0 (1 standard drink = 0.6 oz pur e alcohol) socially [facility] Utilities Answer Date Recorded In the past 12 months has [employer], [employer], oil, or water [employer] threatened to shut off services in your [...] How often do you attend chur or islam services? More than 4 times per year 06/02/2023 Do you belong to any clubs o r organizations such as judaism groups, unions, fraternal or athletic groups, or [...] place to sleep or slept in a group home (including now)? No 06/02/2023 Personal Safety Answer Date Recorded Have you ever been in or are you currently in a harmful physical or emotional relationship or is someone making you feel afraid or unsafe? 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 CAR COOPER Gender Identity Not on file Sexual Orientation Not on file documented as of this encounter Miscellaneous Notes * Telephone Encounter - Kimmy Urbina CMA - 07/11/2024 2:49 PM CDT Date:07/11/24 Reason for call: right side pain Patient provider: Eliud Outcome/Plan: Right stent pain, continue hydration. Spoke with patient. * Telephone Encounter - Cassie Bee EMT - 07/11/2024 11:49 AM CDT Date: 07/11/2024 Reason for Call: Patient requesting a call back. States she has severe right sided pain that extra strength Tylenol is not helping to alleviate. Patient Provider: Eliud Medical/Surgical Information: Outcome/Plan: documented in this encounter Plan of Treatment Upcoming Encounters Date Type Department Care Team (Late st Contact Info) Description 07/19/2024 12:00 PM CDT Hospital Encounter [facility] Operating Room [address] [place] [address] Rob Kline MD [address] [place] [address] 07/19/2024 12:00 PM CDT Anesthesia Event [facility] Operating Room [address] [place] [address] Nabila Martinez NP [address] [place] [address] [place] [address] 07/19/2024 12:00 PM CDT - 07/19/2024 1:00 PM CDT Surgery [facility] Operating Room [address] [place] [address] Rob Kline MD [address] [place] [address] URETEROSCOPY Scheduled Procedures Name Priority Associated Diagnoses Date/Ti ct URETEROSCOPY Right kidney stone 07/19/2024 12:00 PM [...] documented as of this encounter Care Teams Corporate Auditor Relationship Specialty Start Date End Date Yancy Guerrero MD [address] [place] [address] PCP - General 05/22/16 Lupillo Reyes MD [address] [facility] [address] [place] [address] Consulting Physician Orthopedic Surgery 07/26/22 documented as of this encounter
--- NOTE | 2024-07-12 21:01 | ED_ITS ---
HPI - General Adult General Chief complaint: Urogenital-Female Stated complaint: etoh, slurred speech Source: patient and EMS Mode of arrival: EMS Limitations: intoxication ( alcohol) History of Present Illness HPI narrative: patient is a 64-year-old female with a recent hospitalization transferred from this facility due to DTs/ alcoholism and UTI sepsis. PICC line is out at this time. She is on Macrobid. Family was talking to her on the phone while she is highly intoxicated with alcohol at this time and had sent her to the emergency for further evaluation and concerns of sepsis returning at this time. Patient had a negative stroke scale with the EMS. Her presenting symptoms were not stroke. There was some slight slurring of speech due to alcohol intoxication. EMS brought patient to the ER. Police were on the scene before EMS according to the patient. Onset (ago): week(s) ( Two) Location: pelvis ( UTI sepsis) Radiation: other ( none) Severity: mild Severity scale (1-10): 1 Quality: other ( none) Pain Consistency: other ( none) Relieving factors: none Exacerbating factors: none Associated symptoms: denies other symptoms Treatments prior to arrival: other ( patient is on Macrobid) Related Data Home Medications ?Medication ?Instructions ?Recorded ?Confirmed ?Last Taken ?Type citalopram 20 mg tablet (Celexa) 40 mg PO DAILY 02/25/19 07/19/23 Unknown History lorazepam 0.5 mg tablet (Ativan) 0.5 mg PO PRN PRN Anxiety 12/14/22 07/19/23 Unknown History trazodone 100 mg tablet 100 mg PO HS 05/29/23 06/12/23 Unknown History potassium chloride 10 mEq 10 meq PO DAILY 05/31/23 07/19/23 Unknown History capsule,extended release amlodipine 5 mg tablet 5 mg PO DAILY 06/12/23 07/19/23 Unknown History atorvastatin 40 mg tablet 80 mg PO DAILY 06/12/23 07/19/23 Unknown History losartan 25 mg tablet (Cozaar) 50 mg PO DAILY 06/12/23 07/19/23 Unknown History metoprolol succinate 25 mg 75 mg PO DAILY 06/12/23 07/19/23 Unknown History tablet,extended release 24 hr Allergies Allergy/AdvReac Type Severity Reaction Status Date / Time No Known Allergies Allergy Verified 06/20/24 17:18 Review of Systems 2 Review of Systems: All systems reviewed & are unremarkable except as noted in HPI and below Constitutional: Constitutional: Reports no additional constitutional complaints Eyes: Eyes: Reports no additional eye complaints ENT: Reports system reviewed and no additional complaints, except as documented Cardiovascular: Cardiovascular: Reports no additional cardiovascular complaints Respiratory: Respiratory: Reports no additional respiratory complaints Gastrointestinal: Gastrointestinal: Reports no additional gastrointestinal complaints Genitourinary: Genitourinary: Reports no additional female genitourinary complaints Musculoskeletal: Musculoskeletal: Reports no additional musculoskeletal complaints Integumentary/Breasts: Skin/Breast: Reports system reviewed and no additional complaints, except as docu Neurologic: Reports system reviewed and no additional complaints, except as documented Psychiatric: Psychiatric: Reports no additional psychiatric complaints Endocrine: Endocrine: Reports no additional endocrine complaints Hematologic/Lymphatic: Hematologic/Lymphatic: Reports no additional hematologic/lymphatic complaints Allergic/Immunologic: Allergic/Immunologic: Reports no additional allergic/immunologic complaints PMFSH Past Medical History Medical History Endometriosis Anxiety Tachycardia HTN (hypertension) Surgical History Surgical History History of LAVH Family History Family History Father , father at age 62 of mesothelioma Mesothelioma FH: carotid endarterectomy Hyperlipidemia Diabetes mellitus Hypertension Heart disease Mother Congestive heart failure Acute myocardial infarction due to [place] Hypertension Heart disease Daughter Depression PTSD (post-traumatic stress disorder) Sibling Grand mal seizure S/P CABG x 5 Diabetes mellitus Sibling Hypertension Diabetes mellitus Sibling Diabetes mellitus Social History Social History Smoking status: Current every day smoker Second hand tobacco smoke exposure: Yes Alcohol intake: current Drinks per week: 1 Substance use: never Substance use type: does not use Do You Feel Safe in your Home?: Yes Lack of Transportation: No Lack of Food: Never True Current Housing: I Have Housing Concerned About Future Housing: No Difficulty Paying Gas/Electric Bills: No Difficulty Paying for Meds: No Currently Unemployed: No Education: Associate Degree Difficulty w/ Childcare or Family Care: No Gender identity (if verbalized by the patient): Female Spiritual care concerns: Yes Agree to blood products: Yes Exam 2 Const: General: healthy appearing Nutritional Appearance: well nourished Orientation/consciousness: patient oriented x3 Limitations: other limitations ( Alcohol intoxication) HENMT: Head: normal to inspection Ears: external ears normal F alexander/Nose/Sinus: Normal external nose present Eyes: Conjunctivae: conjunctivae normal Pupils: Equal, round and reactive pupils present EOM: EOMs intact bilaterally Neck: Neck: normal visual inspection Chest: Chest palpation & inspection: normal inspection of the chest Resp: Effort & Inspection: normal respiratory effort and not labored A uscultation: clear to auscultation bilaterally and no crackles Cardio: Rate: regular rate Rhythm: regular rhythm Heart sounds: no murmurs GI: Inspection: non-distended GI Palp: Yes Soft to palpation and No Tenderness to palpation present (GI) Auscultation: normal bowel sounds : General: Yes bladder normal to palpation Back/Spine/Pelvis: Back: no CVA tenderness Skin: General skin exam: normal color Rashes: no rashes Wounds: no wounds Neuro: General: patient oriented x3, moves all extremities, no meningeal signs, no focal motor deficits and CN's II-XI intact bilaterally Cranial nerves: Yes Nystagmus not present Speech: No normal speech and Abnormal speech present ( slightly slurred due to intoxication of alcohol) Other: fast exam negative, NIH score 0, GCS is 15 Extrem: General: normal to inspection Psych: Mental Status: mental status grossly normal Affect: normal affect Attitude: cooperative Course Vital Signs Vital signs: Vital Signs Temperature 36.8 C 07/12/24 21:00 Pulse Rate 86 07/12/24 21:00 Respiratory Rate 20 07/12/24 21:00 Blood Pressure 105/72 07/12/24 21:00 Pulse Oximetry 93 07/12/24 21:00 Oxygen Delivery Room Air 07/12/24 21:00 Temperature 36.8 C 07/12/24 21:00 Pulse Rate 81 07/12/24 21:57 Respiratory Rate 20 07/12/24 21:57 Blood Pressure 104/64 07/12/24 22:30 Pulse Oximetry 92 07/12/24 22:31 Oxygen Delivery Room Air 07/12/24 22:16 Medical Decision Making MDM Narrative Medical decision making narrative: patient is a 64-year-old female with alcohol intoxication here for concerns of UTI sepsis returning and some slurred speech with her alcoholic situation tonight. We will do a workup at this time. Both neurological monitoring and sepsis evaluation. Vital Signs Vital Signs: Vital Signs Temperature 36.8 C 07/12/24 21:00 Pulse Rate 86 07/12/24 21:00 Respiratory Rate 20 07/12/24 21:00 Blood Pressure 105/72 07/12/24 21:00 Pulse Oximetry 93 07/12/24 21:00 Oxygen Delivery Room Air 07/12/24 21:00 Temperature 36.8 C 07/12/24 21:00 Pulse Rate 81 07/12/24 21:57 Respiratory Rate 20 07/12/24 21:57 Blood Pressure 104/64 07/12/24 22:30 Pulse Oximetry 92 07/12/24 22:31 Oxygen Delivery Room Air 07/12/24 22:16 Lab Data Lab results reviewed: Yes I reviewed the patient's lab results. 07/12/24 21:31 07/12/24 21:31 Labs: Lab Results 07/12/24 07/12/24 Range/Units 21:10 21:31 WBC 6.7 (4.8-10.8) K/mm3 RBC 3.86 L (4.20-5.40) M/mm3 Hgb 12.0 (12.0-15.0) g/dL Hct 36.4 (35.0-49.0) % MCV 94.3 (78.0-102.0) fL MCH 31.1 H (27.0-31.0) pg MCHC 33.0 (32-36) g/dL RDW 13.2 (11.6-14.4) % Plt Count 265 (150-420) K/mm3 MPV 9.8 (9.2-11.8) fl Immature Gran % (Auto) 0.3 H (0.0-0.0) % Neut % (Auto) 46.8 L (50.0-70.0) % Lymph % (Auto) 38.5 (18.0-42.0) % [place] % (Auto) 12.3 H (2.0-11.0) % Eos % (Auto) 1.8 (1.0-6.0) % Baso % (Auto) 0.3 (0.0-1.0) % Lymph # (Auto) 2.59 (1.10-4.50) K/mm3 [place] # (Auto) 0.83 (0.10-0.90) K/mm3 Eos # (Auto) 0.12 (0.02-0.50) K/mm3 Baso # (Auto) 0.02 (0.00-0.10) K/mm3 Abs Immat Gran (auto) 0.02 H (0.00-0.00) K/mm3 Absolute Neuts (auto) 3.15 (1.70-7.20) K/mm3 Absolute Nucleated RBC 0.00 (0.00-0.00) K/mm3 Nucleated RBC % 0.0 (0-0.0) % Sodium 141 (137-145) mmol/L Potassium 3.1 L (3.4-5.0) mmol/L Chloride 107 (98-107) mmol/L Carbon Dioxide 21 L (22-30) mmol/L Anion Gap 13 H (4-12) mmol/L BUN 11 (7-17) mg/dL Creatinine 0.77 (0.7-1.0) mg/dL Estim Creat Clear Calc 70 ml/min Estimated GFR > 60 (59 - ) Glucose 109 (65-110) mg/dL Calculated Osmolality 292 (285-295) mOsm/kg Lactic Acid 2.8 H (0.4-2.0) mmol/L Calcium 8.8 (8.4-10.2) mg/dL Total Bilirubin 0.3 (0.2-1.3) mg/dL AST 25 (14-36) U/L ALT 15 (6-35) U/L Alkaline Phosphatase 81 (38-126) U/L Troponin I < 0.012 (0.000-0.034) ng/mL Total Protein 7.0 (6.3-8.2) g/dL Albumin 3.7 (3.5-5.1) g/dL Urine Color Light yellow (Yellow) Urine Appearance Clear (Clear) Urine pH 6.5 (5.0-8.0) Ur Specific [place] <= 1.005 L (1.010-1.020) Urine Protein Negative (Negative) Urine Glucose (UA) Negative (Negative) Urine Ketones Negative (Negative) Ur Blood (Man) Trace-intact H (Negative) Urine Nitrate Negative (Negative) Urine Bilirubin Negative (Negative) Urine Urobilinogen 0.2 (0.2-1.0) mg/dL Leukocyte Esterase Rfl 1+ H (Negative) HALEY/UL Urine RBC 0-2 (0-2) /hpf Urine WBC 4-6 H (0-3) /hpf Ur Squamous Epith Cells Few (Few) /hpf Urine Bacteria Trace (None) /hpf Ethyl Alcohol 221 (<10) mg/dL Imaging Data Attestation: I personally reviewed and interpreted this imaging study as follows: Radiologist's impression: CT scan of the head is negative for acute process ECG Data EKG #1: Attestation: I personally reviewed and interpreted this ECG as follows: ECG completion date: 07/12/24 ECG completion time: 21:57 EKG Interpretation: normal rate, sinus rhythm, no ectopy, no ST changes, normal QRS, normal QT and left axis Discharge Plan Discharge Clinical Impression: Acute dehydration, Alcoholism, Increased anion gap metabolic acidosis, Hypokalemia UTI (urinary tract infection) Qualifiers: Urinary tract infection type: acute cystitis Hematuria presence: with hematuria Qualified Code(s): N30.01 - Acute cystitis with hematuria Patient Disposition: Acute Care Hospital [facility] Condition: Stable Patient Language: Lithuanian Prescriptions: No Action citalopram [Celexa] 20 mg tablet 40 mg PO DAILY lorazepam [Ativan] 0.5 mg tablet 0.5 mg PO PRN PRN (Reason: Anxiety) losartan [Cozaar] 25 mg tablet 50 mg PO DAILY trazodone 100 mg tablet 100 mg PO HS atorvastatin 40 mg tablet 80 mg PO DAILY metoprolol succinate 25 mg tablet extended release 24 hr 75 mg PO DAILY potassium chloride 10 mEq capsule, extended release 10 meq PO DAILY amlodipine 5 mg tablet 5 mg PO DAILY Follow-up/Referrals: Yancy Guerrero MD [Primary Care Provider] - Time of Disposition: 22:59
--- NOTE | 2024-07-12 21:06 | ECG_ITS ---
Test Date: 2024-07-12 21:39:43 Measurements Intervals [place] Rate: 82 P: 54 [place]: 159 QRS: -9 QRSD: 90 T: 48 QT: 424 QTc: 495 Interpretive Statements SINUS RHYTHM MINIMAL VOLTAGE CRITERIA FOR LVH, CONSIDER NORMAL VARIANT [MEETS CRITERIA IN ONE OF: R(aVL), S(V1), R(V5), R(V5/V6)+S(V1)] BORDERLINE ECG Compared to ECG 06/20/2024 17:51:45 NO SIGNIFICANT CHANGE Electronically Signed On 07-13-2024 07:49:01 CDT by Kranthi Giles M.D.
[2024-07-12 21:17] LABS: Add Urine Microscopic? YES; Appearance Urine Clear (Clear); Bilirubin Urine Negative (Negative); Blood Urine Trace-intact (Negative); Color Urine Light Yellow (Yellow); Glucose Urine UA Negative (Negative); Ketones Urine Negative (Negative); Leukocyte Esterase Ur 1+ LEU/UL (Negative); Nitrate Urine Negative (Negative); Protein Urine Negative (Negative); Specific Grav Ur <= 1.005 (1.010-1.020); Urobilinogen Urine 0.2 mg/dL (0.2-1.0); pH Urine 6.5 (5.0-8.0)
[2024-07-12 21:22] LABS: Bacteria Urine Trace /hpf; RBC Urine 0-2 /hpf (0-2); Squamous Epithelial Cell Urine Few /hpf (Few)
--- OUTSIDE RECORDS SUMMARY | 2024-07-12 21:23 | XMS_ITS | Encounter Summary ---
Author Organization [facility] Address [address] [place] [address] Phone Care Team Providers Care Finishing Range Operator Name Role Phone Yancy Guerrero MD Primary Care Provider + [phone] Lupillo Reyes MD Unavailable [phone] Encounter Details Date Type Department Care Team (Latest Contact Info) Description 03/28/2023 Orders Only [facility] Wendy Choudhary, ISAIAS [address] [facility] [address] [place], [place] [id number] Social History Tobacco Use Types Packs/Day Years [...] on file 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 Gender Identity Not on file Sexual Orientation Not on file documented as of this encounter Plan of Treatment Upcoming Encounters Date Type Department Care Team (Late st Contact Info) Description 07/19/2024 12:00 PM CDT Hospital Encounter [facility] Operating Room [address] [place] [address] Rob Kline MD [address] [place] [address] 07/19/2024 12:00 PM CDT Anesthesia Event [facility] Operating Room [address] [place] [address] Nabila Martinez NP [address] [place] [address] [place] [address] 07/19/2024 12:00 PM CDT - 07/19/2024 1:00 PM CDT Surgery [facility] Operating Room [address] [place] [address] Rob Kline MD [address] [facility] [place] [address] URETEROSCOPY Scheduled Procedures Name Priority Associated Diagnoses [...] documented as of this encounter Care Teams Finishing Range Operator Relationship Specialty Start Date End Date Yancy Guerrero MD [address] [place] [address] PCP - General 05/22/16 Lupillo Reyes MD [address] [address] Consulting Physician Orthopedic Surgery 07/26/22 documented as of this encounter
--- OUTSIDE RECORDS SUMMARY | 2024-07-12 21:23 | XMS_ITS | Encounter Summary ---
Author Organization [facility] Address [address] [place] [address] Phone Care Team Providers Care Drying Rack Changer Name Role Phone Yancy Guerrero MD Primary Care Provider + [phone] Lupillo Reyes MD Unavailable [phone] Encounter Details Date Type Department Care Team (Latest Contact Info) Description 04/03/2023 Orders Only [facility] Wendy Choudhary, ISAIAS [address] [facility] [address] [place], [place] [id number] Social History Tobacco Use Types Packs/Day Years [...] on file 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 Gender Identity Not on file Sexual Orientation Not on file documented as of this encounter Plan of Treatment Upcoming Encounters Date Type Department Care Team (Late st Contact Info) Description 07/19/2024 12:00 PM CDT Hospital Encounter [facility] Operating Room [address] [place] [address] Rob Kline MD [address] [place] [address] 07/19/2024 12:00 PM CDT Anesthesia Event [facility] Operating Room [address] [place] [address] Nabila Martinez NP [address] [place] [address] [place] [address] 07/19/2024 12:00 PM CDT - 07/19/2024 1:00 PM CDT Surgery [facility] Operating Room [address] [place] [address] Rob Kline MD [address] [facility] [place] [address] URETEROSCOPY Scheduled Procedures Name Priority Associated Diagnoses [...] documented as of this encounter Care Teams Drying Rack Changer Relationship Specialty Start Date End Date Yancy Guerrero MD [address] [place] [address] PCP - General 05/22/16 Lupillo Reyes MD [address] [address] Consulting Physician Orthopedic Surgery 07/26/22 documented as of this encounter
--- OUTSIDE RECORDS SUMMARY | 2024-07-12 21:23 | XMS_ITS | Clinical Summary ---
Author Organization [facility] Address [address] [place] [address] Care Team Providers Care Manager Style Name Role Phone Yancy Guerrero MD Primary Care Provider + [phone] Lupillo Reyes MD Unavailable [phone] Allergies No known active allergies Medications citalopram [...] anxiety/depression, AF (Xarelto), HTN, HLD transferred from [facility] [place] [place] for higher level of care. Had Right [...] 03/21/2023 Assessment & Plan (03/23/2023 7:20 AM FLOWER CUTTER): Atenolol resumed with reasonable control Continue to hold Dyazide and losartan until outpatient follow-up HLD (hyperlipidemia) 03/21/2023 Assessment & Plan (03/22/2023 2:05 PM FLOWER CUTTER): Continue atorvastatin Transaminases have normalized. Depression with anxiety 03/21/2023 Assessment & Plan (03/23/2023 7:20 AM FLOWER CUTTER): Cont citalopram 40mg daily and lorazepam 0.5mg BID Resolved Problems Problem Noted Date Diagnosed Date Resolved Date Hypotension 03/21/2023 03/22/2023 Assessment & Plan (03/21/2023 8:09 PM FLOWER CUTTER): - Presenting with BP 80/50s in setting of reduced PO intake and ongoing BP meds - (+)orthostatics on presentation - Hold BP meds, check orthostatics in AM - Restart meds as needed Headache 03/21/2023 03/22/2023 Assessment & Plan (03/21/2023 8:10 PM FLOWER CUTTER): - Tylenol ordered; avoid NSAIDs Weakness 03/21/2023 03/23/2023 Assessment & Plan (03/22/2023 2:06 PM FLOWER CUTTER): TSH and B12 within acceptable limits. Monitor symptoms as blood pressure and renal function recover Nausea 03/21/2023 03/22/2023 Assessment & Plan (03/21/2023 8:10 PM FLOWER CUTTER): - Zofran ordered SUN (acute kidney injury) 03/21/2023 Assessment & Plan (03/23/2023 7:19 AM FLOWER CUTTER): Creatinine improved today Check renal function and electrolytes in outpatient follow-up Continue to hold Dyazide and losartan until outpatient follow-up. Abnormal transaminases 03/21/202303/22 Assessment & Plan (03/21/2023 8:11 PM FLOWER CUTTER): - Elevated in setting of recent viral infection and presumed hypovolemia - Trend in AM - if continues to be elevated consider hepatitis panel/HIV given occupation history Complete rupture of rotator cuff 07/13/2022 03/21/2023 Acute medial meniscus tear of left knee 06/25/2020 03/21/2023 Overview (06/25/2020): Added automatically from request for surgery [id number] Axillary mass, left 12/30/2016 03/21/19 24 Lipoma of forehead 11/23/2015 Pain in shoulder 11/12/2014 03/21/2023 Syncope 03/06/2013 03/21/2023 Encounters Date Type Department Care Team Description 07/11/[address] [facility] Surgery [address] [place] [address] Cassie Bee EMT 07/09/2024 2:00 PM CDT Pre-Admission Testing [facility] Pre Anesthesia Testing 6 [facility] MOB [address], [address] [place] [address] 07/09/2024 Telephone [facility] Urology [address] [place] [address] Office Building [address] [place] [phone] Glenis Degroot LPN 07/09/[address] [facility] Surgery [address] [place] [id number] Armida Hughes, PURNIMA 07/01/2024 Orders Only [facility] Urology [address] [place] [address] Office Building [address] [place] [phone] Chelsea Haywood MD Urinary tract infection without hematuria, site unspecified (Primary Dx) 06/28/2024 Results Follow-Up [facility] Urology [address] [place] [address] 11th [place] [address] [place] [phone] Chelsea Haywood MD Urine culture Urine, bladder 06/28/2024 Telephone [facility]) [facility] Urology [address] [place] [address] 11th [place] [address] [place] [phone] Erica Moore B.A. 06/27/2024 Telephone [facility] Case Management [address] [place] [phone] Dulce Maria Benites RN 06/26/2024 Orders Only [facility] Home Care Services [address] [place] [phone] Laurie Tierney, [facility] 06/24/[address] [facility] Cardiology [address] [facility] 8th [place] [address] [place] [address] Pat Calvo 06/24/2024 Documentation [facility] Urology [address] [facility] Medical Office Building [address] [place] [phone] Chelsea Haywood MD 2024 2:38 PM CDT Anesthesia Event [facility] Operating Room [address] [place] [phone] Jyothi Roque MD Jablonski, Melody A., NP 2024 2:02 PM CDT - 2024 3:07 PM CDT Surgery [facility] Operating Room [address] [place] [phone] Chelsea Haywood MD CYSTOSCOPY PLACEMENT URETERAL STENT 06/20/2024 10:10 PM CDT - 06/26/2024 6:14 PM CDT Hospital Encounter [facility] [address] [place] [address] Carlos Palomares MD Baiocco, Joseph, MD Mendelsohn, Marc, MD Sepsis without acute organ dysfunction, due to unspecified organism (HCC) (Primary Dx); Kidney stone; Bradycardia; Pyelonephritis of right kidney Discharge Disposition: Discharge to home, home health skilled care 06/20/2024 Hospital Encounter [facility] ADMIT [address] [place] [address] 06/17/[address] [facility] Orthopaedic Surgery [address] [place] [address] 2nd Floor [address] [place] [phone] Cheryl Trujillo RN WC Intake Form 06/04/[address] [facility] Orthopaedic Surgery [address] [facility] 2nd Floor [address] [place] [address] Cheryl Trujillo RN from Last [...] = 0.6 oz pur e alcohol) socially [employer] Answer Date Recorded In the past 12 months has [employer], gas, oil, or water [employer] threatened to shut off services in your [...] How often do you attend chur or scientologist services? More than 4 times per year 06/02/2023 Do you belong to any clubs o r organizations such as congregation groups, unions, fraternal or athletic groups, or [...] on file Legal 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 FLOWER CUTTER Gender Identity Not on file Sexual Orientation [...] CDT Hospital Encounter [facility] Operating Room [address] [place] [address] Rob Kline MD [address] [facility] [place] [address] 07/19/2024 12:00 PM CDT Anesthesia Event [facility] Operating Room [address] [place] [address] Nabila Martinez, YENI [address] [place] [address] [place] [address] 07/19/2024 12:00 PM CDT - 07/19/2024 1:00 PM CDT Surgery [facility] Operating Room [address] [place] [address] Rob Kline MD [address] [facility] [place] [address] URETEROSCOPY Scheduled Procedures Name Priority Associated Diagnoses [...] Completed 2024 Medical Devices Implanted Type Area Technical Sales Associate Device Identifier Shelf Expiration Date Model / Serial / Lot [employer] Universa 6fr 24cm Radiopaque Graduate Firm Monofilament Tether [id number] - [id number] Implanted:Qty: 1 on 2024 by Chelsea Haywood MD at [facility] Stent Right: Ureter [employer] [id number] 12/28/2026 [id number] / / [id number] [employer] Corkscrew Tigertail 5.5mm 14[address] Mechanism Vent 2 Square Ar-[id number] - [id number] Implanted:Qty: 1 on 07/26/2022 by Lupillo Reyes MD at [facility] Right: Shoulder [employer] 02/13/2024 AR-1927B CFT / / [id number] [employer] Corkscrew Tigertail 5.5mm 14[address] Mechanism Vent 2 Square Ar-[id number] - [id number] Implanted:Qty: 1 on 07/26/2022 by Lupillo Reyes MD at [facility] Right: Shoulder [employer] 11/12/2024 AR-1927B CFT / / [id number] [employer] Swivelock C 4.75mm 19.1mm Closed Eyelet Vent Hayes Suture Ar-2324bcc - [id number] Implanted:Qty: 1 on 07/26/2022 by Lupillo Reyes MD at [facility] Right: Shoulder [employer] 02/12/2026 AR-2324B CC / / [id number] Procedures Procedure Name Priority Date/Time Associated Diagnosis [...] CDT Kidney stone Case Notes Poc; Elian [phone] CYSTOSCOPY PLACEMENT URETERAL STENT 2024 2:43 PM CDT Kidney stone Case Notes Poc; Elian [phone] EGFR STAT 2024 1:07 PM CDT LACTATE [...] Final Res ult [facility] Department [place] [address] * (ABNORMAL) CBC without differential (06/25/2024 8:45 [...] ORDERABLES Final Res ult Performing Organization Address City/[facility]/ZIP Co de Phone Number [facility] Department [place] [address] * Phosphorus (06/25/2024 8:45 PM CDT) [facility] Phosphorus, pl 2.8 2.3 - 4.5 mg/dL Blood 06/25/2024 8:45 PM CDT 06/25/2024 9:43 PM CDT Braeden Alcantar MD LAB BLOOD ORDERABLES Final Res ult Performing Organization Address City/[facility] Co de Phone Number [facility] Department [place] [address] * Magnesium (06/25/2024 8:45 PM CDT) [facility] Magnesium 2.0 1.4 - 2.5 mg/dL Blood 06/25/2024 8:45 PM CDT 06/25/2024 9:43 PM CDT Braeden Alcantar MD LAB BLOOD ORDERABLES Final Res ult Performing Organization Address [facility] Co de Phone Number [facility] Department [place] [address] * Basic metabolic panel (06/25/2024 8:45 PM CDT) [facility] Sodium 139 135 - 145 mmol/L [...] Calcium 9.2 8.5 - 10.3 mg/dL [facility] Blood 06/25/2024 8:45 PM CDT 06/25/2024 9:43 PM CDT us Braeden Alcantar MD LAB BLOOD ORDERABLES Final Res ult [facility] Department [place] [address] * eGFR (06/24/2024 9:08 PM CDT) eGFR [...] MD LAB BLOOD ORDERABLES Final Res ult [facility] [place] [address] * (ABNORMAL) CBC without differential (06/24/2024 9:08 PM CDT) Pathologist [facility] WBC 8.12 3.80 - 9.90 K/cumm Hgb [...] MD LAB BLOOD ORDERABLES Final Res ult [facility] [place] [address] * Phosphorus (06/24/2024 9:08 PM CDT) Pathologist [facility] Phosphorus, pl 2.9 2.3 - 4.5 mg/dL Blood 06/24/2024 9:08 PM CDT 06/24/2024 9:47 PM CDT Braeden Alcantar MD LAB BLOOD ORDERABLES Final Res ult [facility] [place] [address] * Magnesium (06/24/2024 9:08 PM CDT) Pathologist [facility] Magnesium 1.8 1.4 - 2.5 mg/dL Blood 06/24/2024 9:08 PM CDT 06/24/2024 9:47 PM CDT Braeden Alcantar MD LAB BLOOD ORDERABLES Final Res ult Performing Organization Address [facility] Co de Phone Number [facility] [place] [address] * Basic metabolic panel (06/24/2024 9:08 PM CDT) [facility] Sodium 141 135 - 145 mmol/L [...] 2022. Calcium 8.8 8.5 - 10.3 mg/dL [facility] Blood 06/24/2024 9:08 PM CDT 06/24/2024 9:47 PM CDT us Braeden Alcantar MD LAB BLOOD ORDERABLES Final Res ult [facility] Department [place] [address] * TRANSTHORACIC ECHO (TTE) COMPLETE W DOPPLER/CF W CONTRAST (06/24/2024 2:47 PM CDT) Estimated EF 55-60 % CONS SCIMAGE EF Mod BP 68 % CONS SCIMAGE Anatomical Region Laterality Modality Ultrasound 06/24/2024 1:39 PM CDT Narrative 06/24/2024 3:12 PM CDT [facility] [place] [address] Transthoracic Echocardiographic Report Patient Name: JULI KOO J : 1960 (64y ) Gender: F Study Date: 06/24/2024 01:39:40 PM Ht(Inch): 65 Wt(Lb): 201.06 BSA: 2.05 Director Semiconductor: Renita Rosado RDCS Location: [id number] Order Provider: DONNY CARRANZA BMI: 33.45 BP: [...] Note Slava Carrion MD PhD - 06/24/2024 [facility] [place] [address] Transthoracic Echocardiographic Report Patient Name: JULI KOO J : 1960 (64y ) Gender: F Study Date: 06/24/2024 01:39:40 PM Ht(Inch): 65 Wt(Lb): 201.06 BSA: 2.05 Director Semiconductor: Renita Rosado RDCS Location: [id number] Order Provider:DONNY CARRANZA BMI: 33.45 BP: 123 [...] LAB BLOOD ORDERABLES Final Res ult [facility] [place] [address] * (ABNORMAL) CBC without differential (06/23/2024 9:45 [...] ORDERABLES Final Res ult Performing Organization Address City/[facility]/ZIP Co de Phone Number [facility] [place] [address] * Phosphorus (06/23/2024 9:45 PM CDT) [facility] Phosphorus, pl 2.9 2.3 - 4.5 mg/dL Blood 06/23/2024 9:45 PM CDT 06/23/2024 10:22 PM CDT Braeden Alcantar MD LAB BLOOD ORDERABLES Final Res ult [facility] [place] [address] * Magnesium (06/23/2024 9:45 PM CDT) [facility] Magnesium 1.5 1.4 - 2.5 mg/dL Blood 06/23/2024 9:45 PM CDT 06/23/2024 10:22 PM CDT Braeden Alcantar MD LAB BLOOD ORDERABLES Final Res ult Performing Organization Address City/[facility] Co de Phone Number [facility] [place] [address] * (ABNORMAL) Basic metabolic panel (06/23/2024 9:45 PM CDT) Pathologist [facility] Sodium 138 135 - 145 mmol/L Potassium, [...] ORDERABLES Final Res ult Performing Organization Address [facility] Co de Phone Number [facility] Department [place] [address] * Critical Care (06/23/2024 9:12 AM CDT) Narrative Kecia Troy MD - 06/23/2024 9:12 AM CDT Kecia Troy MD 06/23/2024 4:13 PM Critical Care Performed by: Donny Carranza NP Authorized by: Donny Carranza NP CRITICAL CARE: Team: [place] Shift: AM Level of Billing: Subsequent Hospital [...] plan with the patient's team and other medical/reimbursement consultant staff. This time was in addition to and separate from care provided by other practitioners on this day of service. I spent time reviewing and interpreting data from bedside monitors, laboratory results, and imaging, I spent time discussing the management of this critically ill patient with consultants and the medical staff and I spent time documenting in the medical record Donny Carranza MANAGER SALT IN CLINIC/BEDSIDE JOSE MARR Final Result * [...] MD LAB BLOOD ORDERABLES Final Res ult [facility] [place] [address] * (ABNORMAL) CBC without differential (06/22/2024 7:55 [...] MD LAB BLOOD ORDERABLES Final Res ult [facility] [place] [address] * (ABNORMAL) Phosphorus (06/22/2024 7:55 PM CDT) [facility] Phosphorus, pl 2.2(L) 2.3 - 4.5 mg/dL Blood 06/22/2024 7:55 PM CDT 06/22/2024 8:52 PM CDT Braeden Alcantar MD LAB BLOOD ORDERABLES Final Res ult Performing Organization Address [facility] Co de Phone Number [facility] Department [place] [address] * Magnesium (06/22/2024 7:55 PM CDT) [facility] Magnesium 2.1 1.4 - 2.5 mg/dL Blood 06/22/2024 7:55 PM CDT 06/22/2024 8:52 PM CDT Braeden Alcantar MD LAB BLOOD ORDERABLES Final Res ult Performing Organization Address [facility] de Phone Number [facility] Department [place] [address] * (ABNORMAL) Basic metabolic panel (06/22/2024 7:55 PM CDT) [facility] Sodium 136 135 - 145 mmol/L [...] 2022. Calcium 8.7 8.5 - 10.3 mg/dL [facility] Blood 06/22/2024 7:55 PM CDT 06/22/2024 8:52 PM CDT us Braeden Alcantar MD LAB BLOOD ORDERABLES Final Res ult [facility] Department [place] [address] * Critical Care (06/22/2024 6:39 PM CDT) Narrative Benjy Godinez MD PhD - 06/22/2024 6:39 PM CDT Benjy Godinez MD PhD 06/23/2024 9:03 PM Critical Care Performed by: Asmita Sarabia NP Authorized by: Asmita Sarabia NP CRITICAL CARE: Team: [place] Shift: PM Level of Billing: Subsequent Hospital [...] plan with the patient's team and other medical/reimbursement consultant staff. This time was in addition to and separate from care provided by other practitioners on this day of service. I spent time reviewing and interpreting data from bedside monitors, laboratory results, and imaging and I spent time documenting in the medical record us Asmita Sarabia MANAGER SALT IN CLINIC/BEDSIDE O RDERABLES Final Result * [...] plan with the patient's team and other medical/reimbursement consultant staff. This time was in addition [...] in the medical record us Donny Carranza MANAGER SALT IN CLINIC/BEDSIDE JOSE MARR Final Result * (ABNORMAL) Vancomycin level trough Draw prior to giving vancomycin dose (06/22/2024 5:01 AM CDT) Pathologist [facility] Vancomycin trough 6.8(L) 10.0 - 20.0 mcg/mL Blood 06/22/2024 5:01 AM CDT 06/22/2024 5:14 AM CDT Narrative [facility] - 06/22/2024 6:29 AM CDT Draw prior to giving vancomycin dose us Lyla Jenkins NP LAB BLOOD ORDERABLES Final Res ult [facility] Department [place] [address] * ECG 12 lead (2024 10:48 PM CDT) Ventricular Rate EKG/Min 56 BPM [facility] Atrial Rate 56 BPM [facility] MS-Interval (MSEC) 148 ms [facility] QRS-Interval (MSEC) 84 ms [facility] QT-Interval (MSEC) 530 ms [facility] QTc 511 ms [facility] P [place] 42 degrees [facility] R [place] -13 degrees [facility] T [place] 23 degrees [facility] Diagnosis Sinus bradycardia Prolonged QT Abnormal ECG Confirmed by Abdelrahman Chowdhury MD ([id number]) on 06/24/2024 6:54:15 PM [facility] 2024 10:4 8 PM CDT 06/24/2024 6:54 PM CDT Braeden Alcantar MD ECG ORDERABLES Final Result Performing Organization Address City/State/[facility] Co de Phone Number [facility] * (ABNORMAL) POC Blood Gas and Chemistries, Arterial - (2024 9:59 PM CDT) pH, Art POC 7.34(L) 7.35 - 7.45 pCO2, Art POC 33(L) 35 - 45 mmHg [facility] pO2, Art POC 83 83 - 108 mmHg [facility] Na, POC 135 135 - 145 mmol/L [facility] K POC 3.7 3.3 - 4.9 mmol/L [facility] Comment: Interpretive Data Not all point of care methods assess for hemolysis. Confirm with instrument and retest K+ if not consistent with clinical signs and symptoms. Current Interpretive Data was last revised on 2023. Cl, POC 109 97 - 110 mmol/L [facility] Ionized Ca, POC 5.02 4.50 - 5.10 mg/dL [facility] Glucose, POC 155 70 - 199 mg/dL [facility] Lactate POC 0.6(L) 0.7 - 2.0 mmol/L [facility] SO2 (chay) arterial 98(H) 90 - 95 % [facility] Base excess, POC -7.1 mmol/L [facility] HCO3, Art POC 18(L) 20 - 30 mmol/L [facility] Hct, POC 32.0(L) 36.3 - 45.3 % [facility] Total Hb, POC 10.6(L) 11.9 - 15.5 g/dL [facility] Blood 2024 9:59 PM CDT 2024 9:59 PM CDT Braeden Alcantar MD LAB POCT ORDERABLES - DEVICE F inal Result [facility] Department [place] [address] * XR Abdomen Ap 1 Vw (2024 [...] PM CDT [facility] [place] [address] * Hepatitis C antibody Blood (2024 5:02 PM CDT) Pathologist [facility] Hep C Ab Nonreactive Nonreactive Comment:Antibodies to HCV no t detected. Does NOT exclude the possibility of recent exposure to HCV. Current interpretive data was last revised on 21 Blood 2024 5:02 PM CDT 2024 5:30 PM CDT us Devon [facility]CRO[facility] - GENER AL ORDERABLES Final Result Performing Organization Address [facility] [place] [address] * RPR Blood (2024 5:02 PM CDT) [facility] RPR Nonreactive Nonreactive Blood 2024 5:02 PM CDT 2024 5:30 PM CDT us Devon [facility]CRO[facility] - GENER AL ORDERABLES Final Result Performing Organization Address City/[facility] Co de Phone Number [facility] [place] [address] * Hepatitis B Surface Antigen Blood (2024 5:02 PM CDT) [facility] HepBsAg Nonreactive Nonreactive Blood 2024 5:02 PM CDT 2024 5:30 PM CDT us Devon [facility] MICROBIOLOGY - GENER AL ORDERABLES Final Result Performing Organization Address City/[facility] Co de Phone Number [facility] [place] [address] * Lactate (2024 5:00 PM CDT) Lactate 0.7 0.7 - 2.0 mmol/L Blood 2024 5:00 PM CDT 2024 5:31 PM CDT Braeden Alcantar MD LAB BLOOD ORDERABLES Final Res ult Performing Organization Address City/[facility]/ZIP Co de Phone Number [facility] [place] [address] * (ABNORMAL) eGFR (2024 5:00 PM CDT) [...] ORDERABLES Final Res ult Performing Organization Address City/[facility]/ZIP Co de Phone Number [facility] [place] [address] * (ABNORMAL) Calcium, ionized (2024 5:00 PM CDT) [facility] Calcium, Ionized 4.43(L) 4.50 - 5.10 mg/dL Blood 2024 5:00 PM CDT 2024 5:37 PM CDT Braeden Alcantar MD LAB BLOOD ORDERABLES Final Res ult Performing Organization Address City/[facility]/ZIP Co de Phone Number [facility] [place] [place] [address] * (ABNORMAL) CBC without differential (2024 5:00 PM CDT) [facility] WBC 7.37 3.80 - 9.90 K/cumm [...] MD LAB BLOOD ORDERABLES Final Res ult [facility] [place] [place] [place] [address] * Phosphorus (2024 5:00 PM CDT) Pathologist [facility] Phosphorus, pl 2.6 2.3 - 4.5 mg/dL Blood 2024 5:00 PM CDT 2024 5:37 PM CDT Braeden Alcantar MD LAB BLOOD ORDERABLES Final Res ult Performing Organization Address [facility] de Phone Number [facility] Department [place] [address] * Magnesium (2024 5:00 PM CDT) [facility] Magnesium 1.7 1.4 - 2.5 mg/dL Blood 2024 5:00 PM CDT 2024 5:37 PM CDT Braeden Alcantar MD LAB BLOOD ORDERABLES Final Res ult Performing Organization Address [facility] de Phone Number [facility] [place] [address] * (ABNORMAL) Blood gas, arterial (2024 5:00 PM CDT) Pathologist [facility] pH, Art 7.36 7.35 - 7.45 PCO2, [...] LAB BLOOD ORDERABLES Final Res ult [facility] Department [place] [address] * (ABNORMAL) Basic metabolic panel (2024 5:00 PM CDT) Pathologist [facility] Sodium 142 135 - 145 mmol/L Potassium, [...] LAB BLOOD ORDERABLES Final Res ult [facility] Department [place] [address] * ECG 12 lead (2024 4:29 PM CDT) Ventricular Rate EKG/Min 63 BPM [facility] Atrial Rate 63 BPM [facility] MS-Interval (MSEC) 144 ms [facility] QRS-Interval (MSEC) 86 ms [facility] QT-Interval (MSEC) 498 ms [facility] QTc 509 ms [facility] P [place] 17 degrees [facility] R [place] -22 degrees [facility] T [place] 12 degrees [facility] Diagnosis Normal sinus rhythm Minimal voltage criteria for LVH, may be normal variant Prolonged QT Abnormal ECG Confirmed by Abdelrahman Chowdhury MD ([id number]) on 06/24/2024 6:57:56 PM [facility] 2024 4:29 PM CDT 06/24/2024 6:57 PM CDT us Braeden Alcantar MD ECG ORDERABLES Final Result [facility] * (ABNORMAL) POC Blood Gas [...] 70 - 199 mg/dL [facility] Lactate POC 1.2 0.7 - 2.0 mmol/L [facility] [...] DEVICE F inal Result Performing Organization Address City/[facility]/ZIP Co de Phone Number [facility] Department [place] [address] * [place] Fluoroscopy < 1 Hour (2024 3:20 PM CDT) Narrative [facility] - 2024 3:20 PM CDT The images from this study are not interpreted by Radiology. Please refer to the physician's procedure / OR operative note. Chelsea Haywood MD IMG FLUOROSCOPY PROCEDURES Fin al Result Performing Organization Address [facility] Co de Phone Number [facility] * (ABNORMAL) Urine culture Urine, bladder (2024 [...] Indications for Culture:->Urology patient Testing performed by [facility] Microbiology Laboratory ([phone]) Organism Antibiotic Method Susceptibility Escherichia coli Ampicillin [...] Edited Result - Final Performing Organization Address City/[facility]/ZIP Co de Phone Number [facility] [place] [address] * Lactate (2024 1:07 PM CDT) Pathologist [facility] Lactate 0.8 0.7 - 2.0 mmol/L Blood 2024 1:07 PM CDT 2024 1:40 PM CDT us Lyla Jenkins NP LAB BLOOD ORDERABLES Final Res ult Performing Organization Address [facility] Co de Phone Number [facility] [place] [address] * (ABNORMAL) eGFR (2024 1:07 PM CDT) [...] 2024 2:06 PM CDT us Lyla Jenkins MANAGER SALT LAB BLOOD ORDERABLES Final Res ult Performing Organization Address City/[facility]/ZIP Co de Phone Number [facility] Department [place] [address] * (ABNORMAL) CBC without differential (2024 1:07 [...] ORDERABLES Final Res ult Performing Organization Address City/[facility]/ZIP Co de Phone Number [facility] [place] [address] * (ABNORMAL) Basic metabolic panel (2024 1:07 [...] LAB BLOOD ORDERABLES Final Res ult [facility] Eileen [facility] Department [place] [address] * Urine culture Urine, clean voided (2024 8:45 AM CDT) Pathologist [facility] Report Final Report: Less than 100,000 colonies/mL (clinically insignificant growth based on current clinical standards) Organism (CLINICALLY INSIGNIFICANT GROWTH [facility] Urine, clean voided 2024 8:45 AM CDT 2024 9:43 AM CDT Narrative [facility] - 06/22/2024 12:09 PM CDT Indications for Culture:->Recent positive UA Testing performed by [facility] Microbiology Laboratory ([phone]) Braeden Alcantar MD LAB MICROBIOLOGY - GENERAL ORD ERABLES Final Result [facility] Department [place] [address] * (ABNORMAL) Urinalysis reflex to microscopic (2024 [...] tendency for uric acid stone formation. Source: [facility] Current Interpretive Data was last revised on 2017 Protein, ur ql 2+(A) Negative [facility] Glucose, ur ql Negative Negative [facility] Ketones, ur 1+(A) Negative [facility] Bilirubin, ur Negative Negative [facility] Blood, ur 1+(A) Negative [facility] Urobilinogen, ur <2.0 <2.0 mg/dL [facility] Nitrite, ur Positive(A) Negative [facility] Leukocyte esterase, ur 3+(A) Negative [facility] UA reflex comment Reflex to microscopic UA will be performed. [facility] Urine 2024 8:32 AM CDT 2024 9:19 AM CDT Braeden Alcantar MD LAB URINE ORDERABLES Final Res ult Performing Organization Address City/[facility]/ZIP Co de Phone Number [facility] [place] [address] * (ABNORMAL) Urinalysis, microscopic only (2024 8:32 [...] ORDERABLES Final Res ult Performing Organization Address [facility] Co de Phone Number [facility] [place] [address] * [place] Kidney Complete (2024 12:33 AM [...] it. Electronically signed by: Yojana Perez M.D. Miok Edwards MD [facility] US PROCEDURES Final Result * Check Sample (06/20/2024 11:13 PM CDT) ABO Rh A Negative [facility] OTHER 06/20/2024 11:1 3 PM CDT 06/20/2024 11:45 PM CDT us Carlos Palomares MD LAB BLOOD ORDERABLES Shanell l Result [facility] [place] [address] [facility] * XR Chest 1 Vw Portable [...] images may or may not represent the asa'carsarmiut source data set and thus may contain [...] IMAGING STUDY STUDY INITIALLY PERFORMED: 06/20/2024 at [facility]. TYPE OF STUDY: Multiple CT images of [...] IMAGING STUDY STUDY INITIALLY PERFORMED: 06/20/2024 at [facility]. TYPE OF STUDY: Multiple CT images of [...] images may or may not represent the asa'cars[place]iut source data set and thus may contain [...] only and have not been reviewed by [facility] Radiology. There will be no report generated by a [facility] Radiologist. Narrative [facility] - 06/20/2024 10:49 PM CDT EXAMINATION: Images For Reference Purposes Only Marc Grijalva MD IM CT PROCEDURES Final Result [facility] * ECG 12-LEAD (06/20/2024 10:46 PM CDT) Narrative [facility] - 06/20/2024 10:46 PM CDT Carlos Palomares [...] evidence of acuteischemia. Carlos Palomares MD 06/20/24 6064 Miko Edwards MD ECG ORDERABLES Final R esult Performing Organization Address City/[facility]/ZIP Co de Phone Number [facility] * Sepsis Lactate w/ Reflex (06/20/2024 10:38 PM CDT) [facility] Sepsis Lactate 1.1 0.7 - 2.0 mmol/L Blood 06/20/2024 10:3 8 PM CDT 06/20/2024 10:42 PM CDT Carlos Palomares MD LAB BLOOD ORDERABLES Shanell l Result Performing Organization Address [facility] Co de Phone Number [facility] Department [place] [address] * POCT glucose (06/20/2024 10:27 PM CDT) [facility] Glucose, POC 162 70 - 199 mg/dL Blood 06/20/2024 10:2 7 PM CDT 06/20/2024 10:27 PM CDT Carlos Palomares MD LAB POCT ORDERABLES - DEV ICE Final Result Performing Organization Address [facility] de Phone Number [facility] Department [place] [address] * (ABNORMAL) eGFR (06/20/2024 10:24 PM CDT) [facility] eGFR 37(L) >=60 mL/min/1. 73 m2 [...] Fi nal Result [facility] Department [place] [address] * (ABNORMAL) Differential, auto (06/20/2024 10:24 PM CDT) Neutrophil abs 8.00(H) 1.50 - 6.50 K/cumm Imm gran abs 0.12(H) 0.00 - 0.10 K/cumm [facility] Lymphocyte abs 1.11 0.80 - 3.30 [...] ORDERABLES nal Result [facility] Department [place] [address] * Respiratory pathogen panel Nasopharyngeal (06/20/2024 10:24 PM CDT) Pathologist [facility] Influenza A RNA Not Detected Not Detected [...] testing for transplant patient?->No Interpretive Data The [employer] Alg FilmArray Respiratory Panel (RP2.1) assay is a [...] assay has FDA clearance for testing of MANAGER SALT swabs. The performance of additional specimen types has been assessed by the performing laboratory. The performance characteristics of this assay have been determined by [facility] Molecular Infectious Disease Laboratory. Current interpretive data was last revised on 21. Miko Edwards MD LAB MICROBIOLOGY - [facility] ORDERABLES Final Result [facility] Department [place] [address] * (ABNORMAL) CBC with auto differential (06/20/2024 [...] ORDERABLES Fi nal Result Performing Organization Address [facility]/ZIP Co de Phone Number [facility] Department [place] [address] * Blood culture Blood Peripheral (06/20/2024 10:24 PM CDT) Report Final Report: No growth Blood (Peripheral) 06/20/2024 10:24 PM CDT 06/20/2024 10:37 PM CDT Narrative [facility] - 06/25/2024 7:01 AM CDT From [...] performance characteristics have been verified by the [facility] Microbiology Laboratory. For questions about this culture, contact the Microbiology Laboratory at [phone]. Interpretive data was last revised on 23. Miko Edwards MD LAB MICROBIOLOGY - [facility] ORDERABLES Final Result Performing Organization Address City/[facility]/ZIP Co de Phone Number [facility] Department [place] [address] * Blood culture Blood Peripheral (06/20/2024 10:24 PM CDT) Report Final Report: No growth Blood (Peripheral) 06/20/2024 10:24 PM CDT 06/20/2024 10:38 PM CDT Narrative [facility] - 06/25/2024 7:01 AM CDT Draw [...] performance characteristics have been verified by the [facility] Microbiology Laboratory. For questions about this culture, contact the Microbiology Laboratory at [phone]. Interpretive data was last revised on 23. Miko Edwards MD LAB MICROBIOLOGY - [facility] ORDERABLES Final Result [facility] Department [place] [address] * aPTT (06/20/2024 10:24 PM CDT) aPTT [...] ORDERABLES Fi nal Result Performing Organization Address [facility] de Phone Number [facility] Department [place] [address] * (ABNORMAL) Protime-INR (06/20/2024 10:24 PM CDT) PT 13.5(H) 9.7 - 13.0 sec INR 1.24(H) 0.90 - 1.20 [facility] Comment: Interpretive data Oral anticoagulant therapeutic [...] ORDERABLES Fi nal Result Performing Organization Address [facility] de Phone Number [facility] Department [place] [address] * Type and screen (06/20/2024 10:24 PM CDT) ABO Rh A Negative Jeanette, indirect Negative [facility] Blood 06/20/2024 10:2 4 PM CDT 06/20/2024 10:42 PM CDT Narrative [facility] - 06/20/2024 11:43 PM CDT Has the patient had Daratumumab or Isatuximab in the past 6 months?->Unknown Miko Edwards MD LAB BLOOD BANK TEST ORD ERABLES Final Result [facility] Department [place] [address] * (ABNORMAL) Basic metabolic panel (06/20/2024 10:24 PM CDT) Pathologist [facility] Sodium 138 135 - 145 mmol/L Potassium, [...] ORDERABLES Fi nal Result Performing Organization Address [facility]/ZIP Co de Phone Number [facility] Department [place] [address] * COLONOSCOPY (07/18/2017 9:10 AM CDT) Anatomical Region Laterality Modality Other Narrative Procedure Note Mike Locke MD - 07/18/2017 9:10 AM CDT [facility] Patient Name: Juli Koo Procedure Date: 07/18/2017 9:10 AM Date of : 1960 Admit Type: Outpatient Age: 57 Gender: Female Attending MD: Mike Locke MD Room: REPLACED BY [facility] ENDOSCOPY CAPSULE Note Status: Finalized Patient Profile: [...] passed under direct vision.The Pediatric Colonoscope PCF-H190L [id number] was introduced through the anus and advanced [...] 9:10 AM Procedure Code(s): --- Professional --- 81543, Colonoscopy, flexible; diagnostic, including collection of specimen(s) by brushing or washing, when performed (separateprocedure) Diagnosis Code(s): --- Professional --- Z86.010, Personal history of colonic polyps K64.8, Other hemorrhoids K57.30, Diverticulosis of large intestine without perforation orabscess without bleeding CPT copyright 2017 [employer]. All rights reserved. The codes documented in this report are preliminary and upon computer language coder reviewmay be revised to meet current compliance requirements. 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
--- OUTSIDE RECORDS SUMMARY | 2024-07-12 21:23 | XMS_ITS | Encounter Summary ---
Author Organization [facility] [employer] [facility] Address [address] [place] [address] Phone Care Team Providers Care Philosophy Specialist Name Role Phone Yancy Guerrero MD Primary Care Provider + [phone] Lupillo Reyes MD Unavailable [phone] Encounter Details Date Type Department Care Team (Latest Contact Info) Description 03/06/2023 Orders Only [facility] Wendy Choudhary, ISAIAS [address] [facility] [address] [place], [place] [id number] Social History Tobacco Use Types Packs/Day Years [...] on file Legal 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 Gender Identity Not on file Sexual Orientation Not on file documented as of this encounter Plan of Treatment Upcoming Encounters Date Type Department Care Team (Late st Contact Info) Description 07/19/2024 12:00 PM CDT Hospital Encounter [facility] Operating Room [address] [place] [address] Rob Kline MD [address] [place] [address] 07/19/2024 12:00 PM CDT Anesthesia Event [facility] Operating Room [address] [place] [address] Nabila Martinez, YENI [address] [place] [address] [place] [address] 07/19/2024 12:00 PM CDT - 07/19/2024 1:00 PM CDT Surgery [facility] Operating Room [address] [place] [address] Rob Kline MD [address] [facility] [place] [address] URETEROSCOPY Scheduled Procedures Name Priority Associated Diagnoses [...] documented as of this encounter Care Teams Philosophy Specialist Relationship Specialty Start Date End Date Yancy Guerrero MD [address] [place] [address] PCP - General 05/22/16 Lupillo Reyes MD [address] [address] Consulting Physician Orthopedic Surgery 07/26/22 documented as of this encounter
--- OUTSIDE RECORDS SUMMARY | 2024-07-12 21:23 | XMS_ITS | Encounter Summary ---
Author Organization [facility] Dining Secretary of [facility] Address [address] [place] [address] Phone Care Team Providers Care Solar Energy Engineer Name Role Phone Yancy Guerrero MD Primary Care Provider + [phone] Lupillo Reyes MD Unavailable [phone] Encounter Details Date Type Department Care Team (Latest Contact Info) Description 02/28/2023 Orders Only [facility] Wendy Choudhary, ISAIAS [address] [facility] [address] [place], [place] [id number] Social History Tobacco Use Types Packs/Day Years [...] on file Legal 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 Gender Identity Not on file Sexual Orientation Not on file documented as of this encounter Plan of Treatment Upcoming Encounters Date Type Department Care Team (Late st Contact Info) Description 07/19/2024 12:00 PM CDT Hospital Encounter [facility] Operating Room [address] [place] [address] Rob Kline MD [address] [place] [address] 07/19/2024 12:00 PM CDT Anesthesia Event [facility] Operating Room [address] [place] [address] Nabila Martinez, YENI [address] [place] [address] [place] [address] 07/19/2024 12:00 PM CDT - 07/19/2024 1:00 PM CDT Surgery [facility] Operating Room [address] [place] [address] Rob Kline MD [address] [facility] [place] [address] URETEROSCOPY Scheduled Procedures Name Priority Associated Diagnoses [...] documented as of this encounter Care Teams Solar Energy Engineer Relationship Specialty Start Date End Date Yancy Guerrero MD [address] [place] [address] PCP - General 05/22/16 Lupillo Reeys MD [address] [address] Consulting Physician Orthopedic Surgery 07/26/22 documented as of this encounter
--- OUTSIDE RECORDS SUMMARY | 2024-07-12 21:23 | XMS_ITS | Encounter Summary ---
Author Organization [facility] Address [address] [place] [address] Phone Care Team Providers Care Cherry Grower Name Role Phone Yancy Guerrero MD Primary Care Provider + [phone] Lupillo Reyes MD Unavailable [phone] Encounter Details Date Type Department Care Team (Latest Contact Info) Description 04/28/2023 Orders Only [facility] Wendy Choudhary, ISAIAS [address] [facility] [address] [place], [place] [id number] Social History Tobacco Use Types Packs/Day Years [...] on file Legal 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 STRADDLE BUG Gender Identity Not on file Sexual Orientation Not on file documented as of this encounter Plan of Treatment Upcoming Encounters Date Type Department Care Team (Late st Contact Info) Description 07/19/2024 12:00 PM CDT Hospital Encounter [facility] Operating Room [address] [place] [address] Rob Kline MD [address] [place] [address] 07/19/2024 12:00 PM CDT Anesthesia Event [facility] Operating Room [address] [place] [address] Nabila Martinez NP [address] [place] [address] [place] [address] 07/19/2024 12:00 PM CDT - 07/19/2024 1:00 PM CDT Surgery [facility] Operating Room [address] [place] [address] Rob Kline MD [address] [facility] [place] [address] URETEROSCOPY Scheduled Procedures Name Priority Associated Diagnoses [...] documented as of this encounter Care Teams Cherry Grower Relationship Specialty Start Date End Date Yancy Guerrero MD [address] [place] [address] PCP - General 05/22/16 Lupillo Reyes MD [address] [address] Consulting Physician Orthopedic Surgery 07/26/22 documented as of this encounter
--- OUTSIDE RECORDS SUMMARY | 2024-07-12 21:23 | XMS_ITS | Encounter Summary ---
Author Organization [facility] [employer] [facility] Address [address] [place] [address] Phone Care Team Providers Care Manager Operating Name Role Phone Yancy Guerrero MD Primary Care Provider + [phone] Lupillo Reyes MD Unavailable [phone] Encounter Details Date Type Department Care Team (Late st Contact Info) Description 06/28/2024 Results Follow-Up [facility] - [facility] Urology [address] [facility] Advanced Medicine 11th [place] [address] [place] [address] Chelsea Haywood MD [address] [facility] [address] [place] [address] Urine culture Urine, bladder Social History Tobacco Use Types Packs/Day Years Used Date Smoking Tobacco: Every Day Cigarettes 0.2 2 Smokeless Tobacco: Never Comments:Two packs per week for last 2 years Alcohol Use Standard Drinks/Week Comments Yes 0 (1 standard drink = 0.6 oz pur e alcohol) socially [facility] Utilities Answer Date Recorded In the past 12 months has [employer], gas, oil, or water [employer] threatened to shut off services in your [...] often do you attend chur ch or mormonism services? More than 4 times per year 06/02/2023 Do you belong to any clubs o r organizations such as mandaeism groups, unions, fraternal or athletic groups, or [...] on file Legal 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 PEARL HAND Gender Identity Not on file Sexual Orientation Not on file documented as of this encounter Plan of Treatment Upcoming Encounters Date Type Department Care Team (Late st Contact Info) Description 07/19/2024 12:00 PM CDT Hospital Encounter [facility] Operating Room [address] [place] [address] Rob Kline MD [address] [facility] [place] [address] 07/19/2024 12:00 PM CDT Anesthesia Event [facility] Operating Room [address] [place] [address] Nabila Martinez, YENI [address] [place] [address] [place] [address] 07/19/2024 12:00 PM CDT - 07/19/2024 1:00 PM CDT Surgery [facility] Operating Room [address] [place] [address] Rob Kline MD [address] [facility] [place] [address] URETEROSCOPY Scheduled Procedures Name Priority Associated Diagnoses [...] documented as of this encounter Care Teams Manager Operating Relationship Specialty Start Date End Date Yancy Guerrero MD [address] [place] [address] PCP - General 05/22/16 Lupillo Reyes MD [address] [address] Consulting Physician Orthopedic Surgery 07/26/22 documented as of this encounter
--- OUTSIDE RECORDS SUMMARY | 2024-07-12 21:23 | XMS_ITS | Encounter Summary ---
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 Gender Identity Not on file Sexual Orientation Not on file documented as of this encounter Plan of Treatment Upcoming Encounters Date Type Department Care Team (Late st Contact Info) Description 07/19/2024 12:00 PM CDT Hospital Encounter [facility] Operating Room [address] [place] [address] Rob Kline MD [address] [place] [address] 07/19/2024 12:00 PM CDT Anesthesia Event [facility] Operating Room [address] [place] [address] Nabila Martinez NP [address] [place] [address] [place] [address] 07/19/2024 12:00 PM CDT - 07/19/2024 1:00 PM CDT Surgery [facility] Operating Room [address] [place] [address] Rob Kline MD [address] [facility] [place] [address] URETEROSCOPY Scheduled Procedures Name Priority Associated Diagnoses [...] documented as of this encounter Care Teams Bowling Or Skating Front Desk Clerk Relationship Specialty Start Date End Date Yancy Guerrero MD [address] [place] [address] PCP - General 05/22/16 Lupillo Reyes MD [address] [address] Consulting Physician Orthopedic Surgery 07/26/22 documented as of this encounter
--- OUTSIDE RECORDS SUMMARY | 2024-07-12 21:24 | XMS_ITS | Encounter Summary ---
Author Organization [facility] Address [address] [place] [address] Phone Care Team Providers Care Vc++ Developer Name Role Phone Yancy Guerrero MD Primary Care Provider + [phone] Lupillo Reyes MD Unavailable [phone] Encounter Details Date Type Department Care Team (Late st Contact Info) Description 06/24/2024 Documentation [facility] Urology [address] [facility] Medical Office Building [address] [place] [address] Chelsea Haywood MD [address] [facility] [address] [place], [place] [id number] Social History Tobacco Use Types Packs/Day Years Used Date Smoking Tobacco: Every Day Cigarettes 0.2 2 Smokeless Tobacco: Never Comments:Two packs per week for last 2 years Alcohol Use Standard Drinks/Week Comments Yes 0 (1 standard drink = 0.6 oz pur e alcohol) socially [facility] Utilities Answer Date Recorded In the past 12 months has [employer] electric, gas, oil, or water company threatened [...] often do you attend chur ch or mu-ism services? More than 4 times per year 06/02/2023 Do you belong to any clubs o r organizations such as anglican groups, unions, fraternal or athletic groups, or [...] place to sleep or slept in a fdc (including now)? No 06/02/2023 Personal Safety Answer Date Recorded Have you ever been in or are you currently in a harmful physical or emotional relationship or is someone making you feel afraid or unsafe? 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 female with pmh anxiety/depression, AF (Xarelto), HTN, HLD transferred from [facility] for higher level of care. Had [...] 07/19/2024 12:00 PM CDT Hospital Encounter [facility] Operating Room [address] [place] [address] Rob Kline MD [address] [facility] [place] [address] 07/19/2024 12:00 PM CDT Anesthesia Event [facility] Operating Room [address] [place] [address] Nabila Martinez NP [address] [place] [address] [place] [address] 07/19/2024 12:00 PM CDT - 07/19/2024 1:00 PM CDT Surgery [facility] Operating Room [address] [place] [address] Rob Kline MD [address] [facility] [place] [address] URETEROSCOPY Scheduled Procedures Name Priority Associated Diagnoses [...] documented as of this encounter Care Teams Vc++ Developer Relationship Specialty Start Date End Date Yancy Guerrero MD [address] [place] [address] PCP - General 05/22/16 Lupillo Reyes MD 1050 [facility] [address] [place] [address] Consulting Physician Orthopedic Surgery 07/26/22 documented as of this encounter
--- OUTSIDE RECORDS SUMMARY | 2024-07-12 21:24 | XMS_ITS | Clinical Summary ---
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 SPECIALIST Gender Identity Not on file Sexual Orientation Not on file Occupation Industry Job Start Date Job End Date Not on file Not on file Not on file Not on file Last Filed Vital Signs Vital Sign Reading Time Taken Comments Blood Pressure 132/89 12/30/2016 11:52 AM CRYPTOGRAPHIC CENTER SPECIALIST Pulse 92 12/30/2016 11:52 AM CRYPTOGRAPHIC CENTER SPECIALIST Temperature 36.9 C (98.4 F) 01/29/2009 11:30 AM CRYPTOGRAPHIC CENTER SPECIALIST Respiratory Rate 16 01/29/2009 11:30 AM CRYPTOGRAPHIC CENTER SPECIALIST Oxygen Saturation 93% 01/29/2009 11:30 AM CRYPTOGRAPHIC CENTER SPECIALIST Inhaled Oxygen Concentration - - Weight 76.7 kg (169 lb) 12/30/2016 11:52 AM CRYPTOGRAPHIC CENTER SPECIALIST Height 167.6 cm (5' 6) 12/30/2016 11:52 AM CRYPTOGRAPHIC CENTER SPECIALIST Body Mass Index 27.28 12/30/2016 11:52 AM CRYPTOGRAPHIC CENTER SPECIALIST Plan of Treatment Health Maintenance Due Date [...] series) 2036 Medical Devices Implanted Type Area Cabin Cleaning Supervisor Device Identifier Shelf Expiration Date Model / Serial / Lot Sling Monarc [id number] Implanted:Qty: 1 on 01/28/2009 at [facility] Sling Pelvis [facility] [employer] [id number] / / Procedures Procedure Name Priority Date/Time [...] ASSESSMENT: BI-RADS CATEGORY 1: Negative DICTATION LOCATION: [facility] Narrative 10/31/2019 3:53 PM CDT BILATERAL [...] ASSESSMENT: BI-RADS CATEGORY 1: Negative DICTATION LOCATION: [facility] Tod Dallas MD MAMMO ORDERABLES Final Result from Last 3 Months or Most Recently Relevant to Health Maintenance Insurance [employer] [id number] POS II Advance Directives For more information, please contact: [phone] * Full Code (Latest Code Status on File) Date Activated Date Inactivated Comments 01/28/2009 9:06 PM 01/29/2009 4:29 PM * Full Code Date Activated Date Inactivated Comments 01/28/2009 7:38 PM 01/28/2009 9:06 PM * Full Code Date Activated Date Inactivated Comments 01/28/2009 2:46 PM 01/28/2009 7:38 PM Care Teams Internet Researcher Relationship Specialty Start Date End Date Yancy Guerrero MD [address] [place] [phone] PCP - General Internal Medicine 09/22/14
--- OUTSIDE RECORDS SUMMARY | 2024-07-12 21:24 | XMS_ITS | CONTINUITY OF CARE DOCUMENT ---
Author Name emerald corbin Address Unknown Organization [facility] Address [address] [place] [address] [address] [place] [address] Phone [phone] Care Team Providers Care Drilling Rig Operator Name Role Phone Prabhu ROSARIO, Tha Unavailable INSURANCE PROVIDERS Payer name Policy type / Coverage type Dora red libertarian ID [facility] I-Works insurance Inter[employer]ights [id number]
--- OUTSIDE RECORDS SUMMARY | 2024-07-12 21:24 | XMS_ITS | Encounter Summary ---
Author Organization [facility] Address 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
--- OUTSIDE RECORDS SUMMARY | 2024-07-12 21:24 | XMS_ITS | Encounter Summary ---
Author Organization [facility] Address [address] [place] [address] Phone Care Team Providers Care Steel Erector Apprentice Name Role Phone Ynacy Guerrero MD Primary Care Provider + [phone] Lupillo Reyes MD Unavailable [phone] Encounter Details Date Type Department Care Team (Late st Contact Info) Description 07/11/2024 Telephone [facility] [address] [place] [address] Cassie Bee, EMT Social History Tobacco Use Types Packs/Day Years Used Date Smoking Tobacco: Every Day Cigarettes 0.2 2 Smokeless Tobacco: Never Comments:Two packs per week for last 2 years Alcohol Use Standard Drinks/Week Comments Yes 0 (1 standard drink = 0.6 oz pur e alcohol) socially [facility] Utilities Answer Date Recorded In the past 12 months has [employer], oil, or water [employer] threatened to shut off services in your [...] on file 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 Gender Identity Not on file Sexual [...] Description 07/19/2024 12:00 PM CDT Hospital Encounter [facility] Operating Room [address] [place] [address] Rob Kline MD [address] [place] [address] 07/19/2024 12:00 PM CDT Anesthesia Event [facility] Operating Room [address] [place] [address] Nabila Martinez NP [address] [place] [address] [place] [address] 07/19/2024 12:00 PM CDT - 07/19/2024 1:00 PM CDT Surgery [facility] Operating Room [address] [place] [address] Rob Kline MD [address] [place] [address] URETEROSCOPY Scheduled Procedures Name Priority Associated Diagnoses Date/Ti dc URETEROSCOPY Right kidney stone 07/19/2024 12:00 PM [...] documented as of this encounter Care Teams Steel Erector Apprentice Relationship Specialty Start Date End Date Yancy Guerrero MD [address] [place] [address] PCP - General 05/22/16 Lupillo Reyes MD [address] [facility] [address] [place] [address] Consulting Physician Orthopedic Surgery 07/26/22 documented as of this encounter
--- OUTSIDE RECORDS SUMMARY | 2024-07-12 21:24 | XMS_ITS | Encounter Summary ---
Author Organization [facility] Address [address] [place] [address] Care Team Providers Care Monumental Stonemason Name Role Phone Yancy Guerrero MD Primary Care Provider + Encounter Details Date Type Department Care Team (Latest Contact Info) Description 05/02/2003 Outpatient Historical HIS [facility] Tod Cifuentes MD [address] [facility] [address] [place] [address] SCREENING MAMM-MAILG NEOPL-OTHER (Primary Dx) Social History Tobacco Use Types Packs/Day Years Used Date Smoking Tobacco: Never Assessed Comments Unknown Sex and Gender Information Value Date Recorded Sex Assigned at Not on file 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
--- OUTSIDE RECORDS SUMMARY | 2024-07-12 21:24 | XMS_ITS | Encounter Summary ---
Author Organization [facility] Address [address] [place] [address] Phone Care Team Providers Care Boilermaker Pipe Fitter Name Role Phone Yancy Guerrero MD Primary Care Provider + [phone] Lupillo Reyes MD Unavailable [phone] Encounter Details Date Type Department Care Team (Late st Contact Info) Description 06/24/2024 Telephone [facility] Cardiology [address] [facility] Advanced Medicine 8th [place] [address] [place] [address] Pat Calvo Social History Tobacco Use Types Packs/Day Years Used Date Smoking Tobacco: Every Day Cigarettes 0.2 2 Smokeless Tobacco: Never Comments:Two packs per week for last 2 years Alcohol Use Standard Drinks/Week Comments Yes 0 (1 standard drink = 0.6 oz pur e alcohol) socially [facility]HC Utilities Answer Date Recorded In the past 12 months has [employer], gas, oil, or water [employer] threatened to shut off services in your [...] often do you attend [facility] or sabianism services? 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 REASON FOR CONSULT: Management of Bradycardia ATTENDING PHYSICIAN: Dr. Steinberg documented in this encounter Plan of Treatment Upcoming Encounters Date Type Department Care Team (Late st Contact Info) Description 07/19/2024 12:00 PM CDT Hospital Encounter [facility] Operating Room [address] [place] [address] Rob Kline MD [address] [place] [address] 07/19/2024 12:00 PM CDT Anesthesia Event [facility] Operating Room [address] [place] [address] Nabila Martinez NP [address] [place] [address] [place] [address] 07/19/2024 12:00 PM CDT - 07/19/2024 1:00 PM CDT Surgery [facility] Operating Room [address] [place] [address] Rob Kline MD [address] [facility] [place] [address] URETEROSCOPY Scheduled Procedures Name Priority Associated Diagnoses [...] documented as of this encounter Care Teams Boilermaker Pipe Fitter Relationship Specialty Start Date End Date Yancy Guerrero MD [address] [place], [place] [id number] PCP - General 05/22/16 Lupillo Reyes MD [address] [facility] [address] [place] [address] Consulting Physician Orthopedic Surgery 07/26/22 documented as of this encounter
--- OUTSIDE RECORDS SUMMARY | 2024-07-12 21:24 | XMS_ITS | Continuity of Care Document ---
Author Organization [facility] Address [address] [facility] [address] [place] [address] Phone Care Team Providers Care Music Teacher Name Role Phone Lupillo Reyes MD Unavailable [...] Date Provider Providers Copied on Encounter [facility], [address], [id number], [place] [phone] [facility] No Information 4 Eric Wesley. [address] [address], [place], [place], [id number] , [place]. tel: [phone] [facility], [address], [id number], [place] tel:[phone] [facility] No Information 4 Eric Wesley. [address], [id number] , [place]. tel: [phone] Office/outpat ient visit,est, [facility], [address], [id number], [place] [phone] Rt Shoulder (chief complaint) Complete rotatr-cuff tear/ruptr of r shoulder, not trauma 4 Eric Wesley. [address], [id number] , [place]. tel: [phone] Office/outpat ient visit,est, [facility], [address], [id number], [place] tel:[phone] Right shoulder (chief complaint) Complete rotatr-cuff tear/ruptr of r shoulder, not trauma [address] [facility] [address], [place], [place], [id number] , [place]. tel: [phone] Office/outpat ient visit,est, [facility], [address], [id number], [place] tel:[phone] Follow up (chief complaint) Complete rotatr-cuff tear/ruptr of r shoulder, not trauma [address] [facility], [address] [place] [address], [place], [place], [id number] , [place]. tel: [phone] Office/outpat ient visit,est, [facility], [address] [address], [place], [place], [id number], [place] tel:[phone] [facility] Reviewed Post op check up (chief complaint) Complete rotatr-cuff tear/ruptr of r shoulder, not trauma [address] [facility], [address] [place] [address], [place], [place], [id number] , [place]. tel: [phone] [facility], [address] [place] [address], [id number], [place] tel:[phone] [facility] Reviewed Right shoulder (chief complaint) Complete rotatr-cuff tear/ruptr of r shoulder, not trauma [address] [facility], [place] [address], [place], [place], [id number] , [place]. tel: [phone] [facility], [address], [id number], [place] tel:[phone] [facility] Reviewed Right shoulder (chief complaint) Complete rotatr-cuff tear/ruptr of r shoulder, not trauma [address] [facility], [address], [id number] , [place]. tel: [phone] [facility], [address] [place] [address], [id number], [place] tel:[phone] [facility] No Information [address] [facility], [address] [place] [address], [place], [place], [id number] , [place]. tel: [phone] [facility], [address] [place] [address], [id number], [place] tel:[phone] [facility] Complete rotatr-cuff tear/ruptr of r shoulder, not trauma 3 Eric Wesley. [address] [facility], [address], [place], [place], [id number] , [place]. tel:[phone] Office consultation, moderate [facility], [address] [facility], [place], [place], [id number], [place] tel:[phone] [facility] Right shoulder muscle tear/pain (chief complaint) Complete rotatr-cuff tear/ruptr of r shoulder, not trauma 3 Eric Lupillo. [address] [facility], [address], [place], [place], [id number] , [place]. [phone] Referring Provider: Lupillo Mueller, [address] [facility] [address], [place], [address] . tel:[phone] Family History Family Member Type Diagnosis Age [...] type Covered constitution party ID Authoriza tion(s) [facility] Workers Compensation Adm WC [id number] Social History Type Description Quantity Date [...]
--- OUTSIDE RECORDS SUMMARY | 2024-07-12 21:24 | XMS_ITS | Encounter Summary ---
Author Organization [facility] Address [address] [place] [address] Care Team Providers Care Auricular Acupuncturist Name Role Phone Yancy Guerrero MD Primary Care Provider + Encounter Details Date Type Department Care Team (Latest Contact Info) Description 05/10/2004 Outpatient Historical HIS [facility] Tod Cifuentes MD [address] [facility] [address] [place] [address] SCREENING MAMM-MAILG NEOPL-OTHER (Primary Dx) Social History Tobacco Use Types Packs/Day Years Used Date Smoking Tobacco: Never Assessed Comments Unknown Sex and Gender Information Value Date Recorded Sex Assigned at Not on file 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
--- OUTSIDE RECORDS SUMMARY | 2024-07-12 21:24 | XMS_ITS | Encounter Summary ---
Author Organization [facility] Address [address] [facility] [address] [place] [address] Phone Care Team Providers Care Calibrator Barometers Name Role Phone Yancy Guerrero MD Primary Care Provider + [phone] Lupillo Reyes MD Unavailable [phone] Encounter Details Date Type Department Care Team (Latest Contact Info) Description 04/10/2013 Orders Only [facility] Wendy Choudhary, ISAIAS [address] [facility] [address] [place], [place] [id number] Social History Tobacco Use Types Packs/Day Years Used Date Smoking Tobacco: Never Assessed Comments Unknown Sex and Gender Information Value Date Recorded Sex Assigned at Not on file Legal 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 Gender Identity Not on file Sexual Orientation Not on file documented as of this encounter Plan of Treatment Upcoming Encounters Date Type Department Care Team (Late st Contact Info) Description 07/19/2024 12:00 PM CDT Hospital Encounter [facility] Operating Room [address] [place] [address] Rob Kline MD [address] [facility] [place] [address] 07/19/2024 12:00 PM CDT Anesthesia Event [facility] Operating Room [address] [place] [address] Nabila Martinez NP [address] [place] [address] [place] [address] 07/19/2024 12:00 PM CDT - 07/19/2024 1:00 PM CDT Surgery [facility] Operating Room [address] [place] [address] Rob Kline MD [address] [place] [address] URETEROSCOPY Scheduled Procedures Name Priority Associated Diagnoses [...] COVID: Suspected 12/06/2019 12/06/2019 12/20/2019 3:05 AM CYBER SECURITY CONSULTANT COVID: Suspected 01/14/2021 01/14/2021 01/14/2021 9:43 PM CYBER SECURITY CONSULTANT COVID: Suspected 01/17/2021 01/17/2021 01/18/2021 5:33 AM CYBER SECURITY CONSULTANT COVID: Suspected 08/06/2021 08/06/2021 08/07/2021 3:05 AM CDT COVID: Suspected 08/06/2021 08/06/2021 08/07/2021 3:18 AM CDT COVID19 08/06/2021 08/06/2021 08/16/2021 3:05 AM CDT COVID: Recovered Comment:Added based on recent COVID infection. 08/16/2021 08/16/2021 12/14/2021 3:05 AM C DT COVID: Suspected 09/23/2021 09/23/2021 09/23/2021 10:56 PM CDT COVID: Suspected 09/29/2021 09/29/2021 09/29/2021 10:32 PM CDT COVID: Suspected 12/24/2021 12/25/2021 12/25/2021 3:05 AM CYBER SECURITY CONSULTANT COVID: Suspected 12/25/2021 12/25/2021 12/26/2021 3:05 AM CYBER SECURITY CONSULTANT COVID: Suspected 12/25/2021 12/25/2021 12/26/2021 3:49 PM CYBER SECURITY CONSULTANT MDR gram neg/ESBL 2024 2024 documented as of this encounter Care Teams Calibrator Barometers Relationship Specialty Start Date End Date Yancy Guerrero MD [address] [place] [address] PCP - General 05/22/16 Lupillo Reyes MD [address] [address] Consulting Physician Orthopedic Surgery 07/26/22 documented as of this encounter
--- OUTSIDE RECORDS SUMMARY | 2024-07-12 21:24 | XMS_ITS | Encounter Summary ---
Author Organization [facility] Address [address] [facility] [address] [place] [address] Phone Care Team Providers Care Job Forwarder Name Role Phone Yancy Guerrero MD Primary Care Provider + [phone] Lupillo Reyes MD Unavailable [phone] Encounter Details Date Type Department Care Team (Latest Contact Info) Description 11/25/2010 Orders Only [facility] Wendy Choudhary, ISAIAS [address] [facility] [address] [place], [place] [id number] Social History Tobacco Use Types Packs/Day Years Used Date Smoking Tobacco: Never Assessed Comments Unknown Sex and Gender Information Value Date Recorded Sex Assigned at Not on file 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 Gender Identity Not on file Sexual Orientation Not on file documented as of this encounter Plan of Treatment Upcoming Encounters Date Type Department Care Team (Late st Contact Info) Description 07/19/2024 12:00 PM CDT Hospital Encounter [facility] Operating Room [address] [place] [address] Rob Kline MD [address] [facility] [place] [address] 07/19/2024 12:00 PM CDT Anesthesia Event [facility] Operating Room [address] [place] [address] Nabila Martinez NP [address] [place] [address] [place] [address] 07/19/2024 12:00 PM CDT - 07/19/2024 1:00 PM CDT Surgery [facility] Operating Room [address] [place] [address] Rob Kline MD [address] [place] [address] URETEROSCOPY Scheduled Procedures Name Priority Associated Diagnoses [...] COVID: Suspected 12/06/2019 12/06/2019 12/20/2019 3:05 AM AIR CARGO GROUND OPERATIONS SUPERVISOR COVID: Suspected 01/14/2021 01/14/2021 01/14/2021 9:43 PM AIR CARGO GROUND OPERATIONS SUPERVISOR COVID: Suspected 01/17/2021 01/17/2021 01/18/2021 5:33 AM AIR CARGO GROUND OPERATIONS SUPERVISOR COVID: Suspected 08/06/2021 08/06/2021 08/07/2021 3:05 AM CDT COVID: Suspected 08/06/2021 08/06/2021 08/07/2021 3:18 AM CDT COVID19 08/06/2021 08/06/2021 08/16/2021 3:05 AM CDT COVID: Recovered Comment:Added based on recent COVID infection. 08/16/2021 08/16/2021 12/14/2021 3:05 AM C DT COVID: Suspected 09/23/2021 09/23/2021 09/23/2021 10:56 PM CDT COVID: Suspected 09/29/2021 09/29/2021 09/29/2021 10:32 PM CDT COVID: Suspected 12/24/2021 12/25/2021 12/25/2021 3:05 AM AIR CARGO GROUND OPERATIONS SUPERVISOR COVID: Suspected 12/25/2021 12/25/2021 12/26/2021 3:05 AM AIR CARGO GROUND OPERATIONS SUPERVISOR COVID: Suspected 12/25/2021 12/25/2021 12/26/2021 3:49 PM AIR CARGO GROUND OPERATIONS SUPERVISOR MDR gram neg/ESBL 2024 2024 documented as of this encounter Care Teams Job Forwarder Relationship Specialty Start Date End Date Yancy Guerrero MD [address] [place] [address] PCP - General 05/22/16 Lupillo Reyes MD [address] [address] Consulting Physician Orthopedic Surgery 07/26/22 documented as of this encounter
--- OUTSIDE RECORDS SUMMARY | 2024-07-12 21:24 | XMS_ITS | Encounter Summary ---
Author Organization [facility] Address [address] [place] [address] Care Team Providers Care Experienced Truck Driver Name Role Phone Yancy Guerrero MD Primary Care Provider + [phone] Lupillo Reyes MD Unavailable [phone] Encounter Details Date Type Department Care Team (Late st Contact Info) Description 06/20/2024 Hospital Encounter [facility] ADMIT [address] [place] [address] Social History Tobacco Use Types Packs/Day Years Used Date Smoking Tobacco: Every Day Cigarettes 0.2 2 Smokeless Tobacco: Never Comments:Two packs per week for last 2 years Alcohol Use Standard Drinks/Week Comments Yes 0 (1 standard drink = 0.6 oz pur e alcohol) socially [facility] Utilities Answer Date Recorded In the past 12 months has [employer], gas, oil, or water company threatened to [...] often do you attend chur ch or latter day services? 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 Gender Identity Not on file Sexual Orientation [...] Description 07/19/2024 12:00 PM CDT Hospital Encounter [facility] Operating Room [address] [place] [address] Rob Kline MD [address] [facility] [place] [address] 07/19/2024 12:00 PM CDT Anesthesia Event [facility] Operating Room [address] [place] [address] Nabila Martinez, YENI [address] [place] [address] [place] [address] 07/19/2024 12:00 PM CDT - 07/19/2024 1:00 PM CDT Surgery [facility] Operating Room [address] [place] [address] Rob Kline MD [address] [facility] [place] [address] URETEROSCOPY Scheduled Procedures Name Priority Associated Diagnoses Date/Ti ga URETEROSCOPY Right kidney stone 07/19/2024 12:00 PM [...] documented as of this encounter Care Teams Experienced Truck Driver Relationship Specialty Start Date End Date Yancy Guerrero MD [address] [place] [address] PCP - General 05/22/16 Lupillo Reyes MD [address] [address] Consulting Physician Orthopedic Surgery 07/26/22 documented as of this encounter
--- OUTSIDE RECORDS SUMMARY | 2024-07-12 21:24 | XMS_ITS | Encounter Summary ---
Author Organization [facility] Address [address] [place] [address] Care Team Providers Care Hopper Filler Name Role Phone Yancy Guerrero MD Primary Care Provider + Encounter Details Date Type Department Care Team (Latest Contact Info) Description 03/10/2006 Outpatient Historical [facility] SRIDHAR Velázquez, [place] [address] [facility] [address] [place] [address] Lump or Mass in Breast (Primary Dx) Social History Tobacco Use Types Packs/Day Years Used Date Smoking Tobacco: Never Assessed Comments Unknown Sex and Gender Information Value Date Recorded Sex Assigned at Not on file Legal Sex Female 4:27 AM 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
--- OUTSIDE RECORDS SUMMARY | 2024-07-12 21:24 | XMS_ITS | Encounter Summary ---
Author Organization [facility] Address [address] [place] [address] Care Team Providers Care Cardiovascular Surgical Tech Name Role Phone Yancy Guerrero MD Primary Care Provider + Encounter Details Date Type Department Care Team (Latest Contact Info) Description 01/24/2008 Outpatient Historical HIS [facility] Tod Cifuentes, [address] [facility] [address] [place] [address] Other Screening Mammogram Social History Tobacco Use Types Packs/Day Years Used Date Smoking Tobacco: Never Assessed Comments Unknown Sex and Gender Information Value Date Recorded Sex Assigned at Not on file Legal Sex Female 4:27 AM DIGITAL MEDIA SPECIALIST Gender Identity Not on file Sexual Orientation Not on file documented as of this encounter Plan of Treatment Not on file documented as of this encounter Procedures Procedure Name Priority Date/Time Associated Diagnosis Comments MAMMO SCREEN BILAT W OR WO CAD Routine 01/24/2008 9:19 AM DIGITAL MEDIA SPECIALIST documented in this encounter Results * MAMMO DIGITAL SCREEN BILAT (01/24/2008 9:19 AM DIGITAL MEDIA SPECIALIST) Anatomical Region Laterality Modality Breast Bilateral Other 01/24/2008 9:19 AM DIGITAL MEDIA SPECIALIST Narrative 01/25/2008 7:03 PM DIGITAL MEDIA SPECIALIST [facility] [address] [place], [place] [address] Admit Date: 01/24/2008 JULI KOO Sex: F Admit Prov: TOD DALLAS Date: 1960 Primary Care Prov: PCP, UNKNOWN CMRN: [id number] Room: [facility] SSN: [id number] IMAGING SERVICES Ordering Prov: TOD DALLAS Accession Number: [id number] Interpretation BILATERAL SCREENING DIGITAL MAMMOGRAMS WITH COMPUTER [...] [facility] Procedure Note Olena Christy - 01/25/2008 [id number] [place], [place] [address] Admit Date: 01/24/2008 HANANEJULI Sex: F Admit Prov: TOD DALLAS Date: 1960 Primary Care Prov: PCP, UNKNOWN CMRN: [id number] [id number] Ordering Prov: TOD DALLAS Interpretation [...] mammogram documented in this encounter Care Teams Cardiovascular Surgical Tech Relationship Specialty Start Date End Date Yancy Guerrero MD [address] [place] [phone] PCP - General Internal Medicine 09/22/14 documented as of this encounter
--- OUTSIDE RECORDS SUMMARY | 2024-07-12 21:24 | XMS_ITS | Referral Summary ---
Author Organization [facility] Address [address] [place] [address] Care Team Providers Care Blindstitch Lapel Padder Name Role Phone Yancy Guerrero MD Primary Care Provider + [phone] Lupillo Reyes MD Unavailable [phone] Encounters Date Type Department Care Team Description 07/11/2024 Telephone [facility] Surgery [address] [place] [address] Cassie Bee EMT 07/09/2024 Telephone [facility] [address] [place] [address] Office Building [address] [place] [address] Glenis Degroot LPN 07/09/2024 Telephone [facility] Surgery [address] [place] [address] Armida Hughes CMA 07/09/2024 2:00 PM CDT Pre-Admission Testing [facility] Pre Anesthesia Testing [address] [facility] MOB [address], [address] [place] [address] 07/01/2024 Orders Only [facility] [address] [place] [address] Office Building [address] [place] [address] Chelsea Haywood MD Urinary tract infection without hematuria, site unspecified (Primary Dx) 06/28/2024 Results Follow-Up [facility] Urology [address] [place] [address] 11th [place] [address] [place] [address] Chelsea Haywood MD Urine culture Urine, bladder 06/28/2024 Telephone [facility] Urology [address] [facility] 11th Floor [address] [place] [phone] Erica Moore B.A. 06/27/2024 Telephone [facility] [address] [place] [address] Dulce Maria Benites RN 06/26/2024 Orders Only [facility] Home Care Services [address] [place] [phone] Laurie Tierney, [facility] 06/20/2024 10:10 PM CDT - 06/26/2024 6:14 PM CDT Hospital Encounter [address] [phone] Carlos Palomares MD Baiocco, Joseph, MD Mendelsohn, Marc, MD Sepsis without acute organ dysfunction, due to unspecified organism (HCC) (Primary Dx); Kidney stone; Bradycardia; Pyelonephritis of right kidney Discharge Disposition: Discharge to home, home health skilled care 06/24/2024 Telephone [facility] Cardiology [address] [facility] 8th Floor [address] [place] [phone] Pat Calvo 06/24/2024 Documentation [facility] [address] [facility] Medical Office Building [address] [place] [phone] Chelsea Haywood MD 2024 2:38 PM CDT Anesthesia Event [facility] [address] [place] [phone] Jyothi Roque MD Jablonski, Melody A., NP 2024 2:02 PM CDT - 2024 3:07 PM CDT Surgery [facility] [address] [place] [address] Chelsea Haywood MD CYSTOSCOPY PLACEMENT URETERAL STENT 06/20/2024 Hospital Encounter [facility] [address] [facility] [place] [address] 06/17/2024 Telephone [facility] Orthopaedic Surgery [address] [facility] 2nd Floor [address] [place] [address] Cheryl Trujillo RN WC Intake Form 06/04/2024 Telephone [facility] Orthopaedic Surgery [address] [facility] 2nd Floor [address] [place] [address] Cheryl Trujillo RN from Last [...] anxiety/depression, AF (Xarelto), HTN, HLD transferred from [facility] for higher level of care. [...] 03/21/2023 Assessment & Plan (03/23/2023 7:20 AM COLLEGE TEACHER): Atenolol resumed with reasonable control Continue to hold Dyazide and losartan until outpatient follow-up HLD (hyperlipidemia) 03/21/2023 Assessment & Plan (03/22/2023 2:05 PM COLLEGE TEACHER): Continue atorvastatin Transaminases have normalized. Depression with anxiety 03/21/2023 Assessment & Plan (03/23/2023 7:20 AM COLLEGE TEACHER): Cont citalopram 40mg daily and lorazepam 0.5mg BID Resolved Problems Problem Noted Date Diagnosed Date Resolved Date Hypotension 03/21/2023 03/22/2023 Assessment & Plan (03/21/2023 8:09 PM COLLEGE TEACHER): - Presenting with BP 80/50s in setting of reduced PO intake and ongoing BP meds - (+)orthostatics on presentation - Hold BP meds, check orthostatics in AM - Restart meds as needed Headache 03/21/2023 03/22/2023 Assessment & Plan (03/21/2023 8:10 PM COLLEGE TEACHER): - Tylenol ordered; avoid NSAIDs Weakness 03/21/2023 03/23/2023 Assessment & Plan (03/22/2023 2:06 PM COLLEGE TEACHER): TSH and B12 within acceptable limits. Monitor symptoms as blood pressure and renal function recover Nausea 03/21/2023 03/22/2023 Assessment & Plan (03/21/2023 8:10 PM COLLEGE TEACHER): - Zofran ordered SUN (acute kidney injury) 03/21/2023 Assessment & Plan (03/23/2023 7:19 AM COLLEGE TEACHER): Creatinine improved today Check renal function and electrolytes in outpatient follow-up Continue to hold Dyazide and losartan until outpatient follow-up. Abnormal transaminases 03/21/202303/22 Assessment & Plan (03/21/2023 8:11 PM COLLEGE TEACHER): - Elevated in setting of recent viral infection and presumed hypovolemia - Trend in AM - if continues to be elevated consider hepatitis panel/HIV given occupation history Complete rupture of rotator cuff 07/13/2022 03/21/2023 Acute medial meniscus tear of left knee 06/25/2020 03/21/2023 Overview (06/25/2020): Added automatically from request for surgery [id number] Axillary mass, left 12/30/2016 03/21/19 24 Lipoma [...] = 0.6 oz pur e alcohol) socially CSS99ities Answer Date Recorded In the past 12 months has e CLARED, gas, oil, or water [employer] threatened to shut off services in your [...] on file Legal 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 COLLEGE TEACHER Gender Identity Not on file Sexual [...] Description 07/19/2024 12:00 PM CDT Hospital Encounter [facility] Operating Room [address] [place] [address] Rob Kline MD [address] [facility] [place] [address] 07/19/2024 12:00 PM CDT Anesthesia Event [facility] Operating Room [address] [place] [address] Nabila Martinez NP [address] [place] [address] [place] [address] 07/19/2024 12:00 PM CDT - 07/19/2024 1:00 PM CDT Surgery [facility] Operating Room [address] [place] [address] Rob Kline MD [address] [facility] [place] [address] URETEROSCOPY Scheduled Procedures Name Priority Associated Diagnoses Date/Ti me URETEROSCOPY Right kidney stone 07/19/2024 12:00 PM CDT CYSTOSCOPY PLACEMENT URETERA L STENT Right kidney stone 07/19/2024 12:00 PM CDT REMOVAL URETERAL STONE Right kidney stone 07/19/2024 12:00 PM CDT Medical Devices Implanted Type Area Lead Javascript Developer Device Identifier Shelf Expiration Date Model / Serial / Lot [employer] Universa 6fr 24cm Radiopaque Graduate Firm Monofilament Tether [id number] - [id number] Implanted:Qty: 1 on 2024 by Chelsea Haywood MD at [facility] Stent Right: Ureter [employer] [id number] 12/28/2026 [id number] / / [id number] [employer] Corkscrew Tigertail 5.5mm 14[address] Mechanism Vent 2 Square [id number] - [id number] Implanted:Qty: 1 on 07/26/2022 by Lupillo Reyes MD at [facility] Right: Shoulder [employer] 02/13/2024 AR-1927B CFT / / [id number] [employer] Corkscrew Tigertail 5.5mm 14.7[address] Drive Mechanism Vent 2 Square [id number] - [id number] Implanted:Qty: 1 on 07/26/2022 by Lupillo Reyes MD at [facility] Right: Shoulder [employer] 11/12/2024 AR-1927B CFT / / [id number] [employer] Swivelock C 4.75mm 19.1mm Closed Eyelet Vent Halbur Suture Ar-2324bcc - [id number] Implanted:Qty: 1 on 07/26/2022 by Lupillo Reyes MD at [facility] Right: Shoulder [employer] 02/12/2026 AR-2324B CC / / [id number] Procedures Procedure Name Priority Date/Time Associated Diagnosis [...] CDT Kidney stone Case Notes Poc; Elian [phone] CYSTOSCOPY PLACEMENT URETERAL STENT 2024 2:43 PM CDT Kidney stone Case Notes Poc; Elian [phone] EGFR STAT 2024 1:07 PM CDT LACTATE [...] MD LAB BLOOD ORDERABLES Final Res ult [facility] [place] [address] * (ABNORMAL) CBC without differential (06/25/2024 8:45 PM CDT) WBC 7.87 3.80 - 9.90 K/cumm Hgb 11.0(L) 11.9 - 15.5 g/dL [facility] Hct 32.9(L) 35.6 - 45.5 % [facility] Plt 385 150 - 400 K/cumm [facility] MPV 10.6 9.1 - 12.3 fL [facility] RBC 3.50(L) 3.90 - 5.20 M/cumm [facility] MCV 94.0 81.3 - 96.4 fL [facility] MCH 31.4 27.1 - 33.3 pg [facility] MCHC 33.4 32.3 - 35.7 g/dL [facility] RDW CV 14.4 11.1 - 14.9 % [facility] RDW SD 49.4(H) 35.7 - 48.1 fL [facility] NRBC abs 0.00 0.00 - 0.01 K/cumm [facility] Blood 06/25/2024 8:45 PM CDT 06/25/2024 9:59 PM CDT us Braeden Alcantar MD LAB BLOOD ORDERABLES Final Res ult Performing Organization Address City/[facility]/ZIP Co de Phone Number [facility] [place] [address] * Phosphorus (06/25/2024 8:45 PM CDT) [facility] Phosphorus, pl 2.8 2.3 - 4.5 mg/dL Blood 06/25/2024 8:45 PM CDT 06/25/2024 9:43 PM CDT Braeden Alcantar MD LAB BLOOD ORDERABLES Final Res ult Performing Organization Address [facility] Co de Phone Number [facility] Department [place] [address] * Magnesium (06/25/2024 8:45 PM CDT) [facility] Magnesium 2.0 1.4 - 2.5 mg/dL Blood 06/25/2024 8:45 PM CDT 06/25/2024 9:43 PM CDT Braeden Alcantar MD LAB BLOOD ORDERABLES Final Res ult Performing Organization Address [facility] Co de Phone Number [facility] Department [place] [address] * Basic metabolic panel (06/25/2024 8:45 PM CDT) [facility] Sodium 139 135 - 145 mmol/L Potassium, pl 3.7 3.3 - 4.9 mmol/L [facility] Chloride 101 97 - 110 mmol/L [facility] CO2 30 22 - 32 mmol/L [facility] Anion gap 8 2 - 15 mmol/L [facility] BUN 11 6 - 25 mg/dL [facility] Creatinine 0.73 0.60 - 1.10 mg/dL [facility] Glucose 137 70 - 199 mg/dL [facility] Comment: Interpretive Data Fasting glucose [...] MD LAB BLOOD ORDERABLES Final Res ult [facility] [place] [address] * eGFR (06/24/2024 9:08 PM CDT) eGFR [...] MD LAB BLOOD ORDERABLES Final Res ult [facility] Department [place] [address] * (ABNORMAL) CBC without differential (06/24/2024 9:08 PM CDT) Pathologist [facility] WBC 8.12 3.80 - 9.90 K/cumm Hgb 10.9(L) 11.9 - 15.5 g/dL [facility] Hct 31.5(L) 35.6 - 45.5 % [facility] Plt 291 150 - 400 K/cumm [facility] MPV 11.0 9.1 - 12.3 fL [facility] RBC 3.43(L) 3.90 - 5.20 M/cumm [facility] MCV 91.8 81.3 - 96.4 fL [facility] MCH 31.8 27.1 - 33.3 pg [facility] MCHC 34.6 32.3 - 35.7 g/dL [facility] RDW CV 14.1 11.1 - 14.9 % [facility] RDW SD 47.6 35.7 - 48.1 fL [facility] NRBC abs 0.00 0.00 - 0.01 K/cumm [facility] Blood 06/24/2024 9:08 PM CDT 06/24/2024 10:07 PM CDT Braeden Alcantar MD LAB BLOOD ORDERABLES Final Res ult [facility] Department [place] [address] * Phosphorus (06/24/2024 9:08 PM CDT) Pathologist [facility] Phosphorus, pl 2.9 2.3 - 4.5 mg/dL Blood 06/24/2024 9:08 PM CDT 06/24/2024 9:47 PM CDT Braeden Alcantar MD LAB BLOOD ORDERABLES Final Res ult [facility] Department [place] [address] * Magnesium (06/24/2024 9:08 PM CDT) Pathologist [facility] Magnesium 1.8 1.4 - 2.5 mg/dL Blood 06/24/2024 9:08 PM CDT 06/24/2024 9:47 PM CDT Braeden Alcantar MD LAB BLOOD ORDERABLES Final Res ult Performing Organization Address [facility] Co de Phone Number [facility] Department [place] [address] * Basic metabolic panel (06/24/2024 9:08 PM CDT) [facility] Sodium 141 135 - 145 mmol/L Potassium, pl 3.6 3.3 - 4.9 mmol/L [facility] Chloride 103 97 - 110 mmol/L [facility] CO2 30 22 - 32 mmol/L [facility] Anion gap 8 2 - 15 mmol/L [facility] BUN 8 6 - 25 mg/dL [facility] Creatinine 0.67 0.60 - 1.10 mg/dL [facility] Glucose 155 70 - 199 mg/dL [facility] Comment: Interpretive Data Fasting glucose [...] 2022. Calcium 8.8 8.5 - 10.3 mg/dL [facility] Blood 06/24/2024 9:08 PM CDT 06/24/2024 9:47 PM CDT us Braeden Alcantar MD LAB BLOOD ORDERABLES Final Res ult [facility] [place] [address] * TRANSTHORACIC ECHO (TTE) COMPLETE W DOPPLER/CF W CONTRAST (06/24/2024 2:47 PM CDT) Estimated EF 55-60 % CONS SCIMAGE EF Mod BP 68 % CONS SCIMAGE Anatomical Region Laterality Modality Ultrasound 06/24/2024 1:39 PM CDT Narrative 06/24/2024 3:12 PM CDT [facility] [place] [address] Transthoracic Echocardiographic Report Patient Name: JULI KOO J : 1960 (64y ) Gender: F Study Date: 06/24/2024 01:39:40 PM Ht(Inch): 65 Wt(Lb): 201.06 BSA: 2.05 Glove Stitcher: Renita Rosado RDCS Location: [id number] Order Provider: DONNY CARRANZA BMI: 33.45 BP: [...] - 06/24/2024 [facility] [place] [address] Transthoracic Echocardiographic Report Patient Name: JULI KOO J : 1960 (64y ) Gender: F Study Date: 06/24/2024 01:39:40 PM Ht(Inch): 65 Wt(Lb): 201.06 BSA: 2.05 Glove Stitcher: Renita Rosado RDCS Location: [id number] Order Provider:DONNY CARRANAZ BMI: 33.45 BP: 123 / 58 Ref [...] Final Res ult [facility] [place] [address] * (ABNORMAL) CBC without differential (06/23/2024 9:45 PM CDT) WBC 7.48 3.80 - 9.90 K/cumm Hgb 10.6(L) 11.9 - 15.5 g/dL [facility] Hct 30.7(L) 35.6 - 45.5 % [facility] Plt 223 150 - 400 K/cumm [facility] MPV 10.9 9.1 - 12.3 fL [facility] RBC 3.32(L) 3.90 - 5.20 M/cumm [facility] MCV 92.5 81.3 - 96.4 fL [facility] MCH 31.9 27.1 - 33.3 pg [facility] MCHC 34.5 32.3 - 35.7 g/dL [facility] RDW CV 14.1 11.1 - 14.9 % [facility] RDW SD 47.7 35.7 - 48.1 fL [facility] NRBC abs 0.00 0.00 - 0.01 K/cumm [facility] Blood 06/23/2024 9:45 PM CDT 06/23/2024 10:21 PM CDT Braeden Alcantar MD LAB BLOOD ORDERABLES Final Res ult Performing Organization Address City/[facility]/ZIP Co de Phone Number [facility] Department of [employer] [place] [address] * Phosphorus (06/23/2024 9:45 PM CDT) [facility] Phosphorus, pl 2.9 2.3 - 4.5 mg/dL Blood 06/23/2024 9:45 PM CDT 06/23/2024 10:22 PM CDT Braeden Alcantar MD LAB BLOOD ORDERABLES Final Res ult [facility] [place] [address] * Magnesium (06/23/2024 9:45 PM CDT) [facility] Magnesium 1.5 1.4 - 2.5 mg/dL Blood 06/23/2024 9:45 PM CDT 06/23/2024 10:22 PM CDT Braeden Alcantar MD LAB BLOOD ORDERABLES Final Res ult Performing Organization Address City/[facility]/ZIP Co de Phone Number [facility] Department [place] [address] * (ABNORMAL) Basic metabolic panel (06/23/2024 9:45 PM CDT) Pathologist [facility] Sodium 138 135 - 145 mmol/L Potassium, pl 2.8(L) 3.3 - 4.9 mmol/L [facility] Chloride 105 97 - 110 mmol/L [facility] CO2 25 22 - 32 mmol/L [facility] Anion gap 8 2 - 15 mmol/L [facility] BUN 8 6 - 25 mg/dL [facility] Creatinine 0.82 0.60 - 1.10 mg/dL [facility] Glucose 91 70 - 199 mg/dL [facility] Comment: Interpretive Data Fasting glucose [...] 2022. Calcium 8.4(L) 8.5 - 10.3 mg/dL [facility] Blood 06/23/2024 9:45 PM CDT 06/23/2024 10:22 PM CDT Braeden Alcantar MD LAB BLOOD ORDERABLES Final Res ult Performing Organization Address [facility]/ZIP Co de Phone Number [facility] Department [place] [address] * Critical Care (06/23/2024 9:12 AM CDT) Narrative Kecia Troy MD - 06/23/2024 9:12 AM CDT Kecia Troy MD 06/23/2024 4:13 PM Critical Care Performed by: Donny Carranza NP Authorized by: Donny Carranza NP CRITICAL CARE: Team: LATONIA Shift: AM Level of Billing: Subsequent Hospital [...] plan with the patient's team and other medical/solutions consultant staff. This time was in addition to and separate from care provided by other practitioners on this day of service. I spent time reviewing and interpreting data from bedside monitors, laboratory results, and imaging, I spent time discussing the management of this critically ill patient with consultants and the medical staff and I spent time documenting in the medical record Donny Carranza SEARCH OPTIMIZATION ANALYST IN CLINIC/BEDSIDE JOSE MARR Final Result * eGFR (06/22/2024 7:55 PM CDT) Pathologist [facility] eGFR 80 >=60 mL/min/1. 73 m2 Comment: [...] MD LAB BLOOD ORDERABLES Final Res ult [facility] of [employer] [place] [address] * (ABNORMAL) CBC without differential (06/22/2024 7:55 PM CDT) WBC 7.81 3.80 - 9.90 K/cumm Hgb 11.1(L) 11.9 - 15.5 g/dL [facility] Hct 33.1(L) 35.6 - 45.5 % [facility] Plt 180 150 - 400 K/cumm [facility] MPV 11.1 9.1 - 12.3 fL [facility] RBC 3.51(L) 3.90 - 5.20 M/cumm [facility] MCV 94.3 81.3 - 96.4 fL [facility] MCH 31.6 27.1 - 33.3 pg [facility] MCHC 33.5 32.3 - 35.7 g/dL [facility] RDW CV 14.3 11.1 - 14.9 % [facility] RDW SD 48.6(H) 35.7 - 48.1 fL [facility] NRBC abs 0.00 0.00 - 0.01 K/cumm [facility] Blood 06/22/2024 7:55 PM CDT 06/22/2024 9:23 PM CDT Braeden Alcantar MD LAB BLOOD ORDERABLES Final Res ult [facility] [employer] [place] [address] * (ABNORMAL) Phosphorus (06/22/2024 7:55 PM CDT) Pathologist [facility] Phosphorus, pl 2.2(L) 2.3 - 4.5 mg/dL Blood 06/22/2024 7:55 PM CDT 06/22/2024 8:52 PM CDT Braeden Alcantar MD LAB BLOOD ORDERABLES Final Res ult Performing Organization Address [facility] Co de Phone Number [facility] Department [place] [address] * Magnesium (06/22/2024 7:55 PM CDT) [facility] Magnesium 2.1 1.4 - 2.5 mg/dL Blood 06/22/2024 7:55 PM CDT 06/22/2024 8:52 PM CDT Braeden Alcantar MD LAB BLOOD ORDERABLES Final Res ult Performing Organization Address [facility] de Phone Number [facility] [place] [address] * (ABNORMAL) Basic metabolic panel (06/22/2024 7:55 PM CDT) [facility] Sodium 136 135 - 145 mmol/L Potassium, pl 4.1 3.3 - 4.9 mmol/L [facility] Chloride 106 97 - 110 mmol/L [facility] CO2 20(L) 22 - 32 mmol/L [facility] Anion gap 10 2 - 15 mmol/L [facility] BUN 15 6 - 25 mg/dL [facility] Creatinine 0.82 0.60 - 1.10 mg/dL [facility] Glucose 146 70 - 199 mg/dL [facility] Comment: Interpretive Data Fasting glucose [...] 2022. Calcium 8.7 8.5 - 10.3 mg/dL [facility] Blood 06/22/2024 7:55 PM CDT 06/22/2024 8:52 PM CDT us Braeden Alcantar MD LAB BLOOD ORDERABLES Final Res ult [facility] [place] [address] * Critical Care (06/22/2024 6:39 PM CDT) Narrative Benjy Godinez MD PhD - 06/22/2024 6:39 PM CDT Benjy Godinez MD PhD 06/23/2024 9:03 PM Critical Care Performed by: Asmita Sarabia NP Authorized by: Asmita Sarabia NP CRITICAL CARE: Team: LATONIA Shift: PM Level of Billing: Subsequent Hospital [...] plan with the patient's team and other medical/solutions consultant staff. This time was in addition to and separate from care provided by other practitioners on this day of service. I spent time reviewing and interpreting data from bedside monitors, laboratory results, and imaging and I spent time documenting in the medical record us Asmita Sarabia SEARCH OPTIMIZATION ANALYST IN CLINIC/BEDSIDE O RDERABLES Final Result * [...] plan with the patient's team and other medical/solutions consultant staff. This time was in addition [...] in the medical record us Donny Carranza SEARCH OPTIMIZATION ANALYST IN CLINIC/BEDSIDE JOSE MARR Final Result * (ABNORMAL) Vancomycin level trough Draw prior to giving vancomycin dose (06/22/2024 5:01 AM CDT) Pathologist [facility] Vancomycin trough 6.8(L) 10.0 - 20.0 mcg/mL Blood 06/22/2024 5:01 AM CDT 06/22/2024 5:14 AM CDT Narrative [facility] - 06/22/2024 6:29 AM CDT Draw prior to giving vancomycin dose us Lyla Jenkins NP LAB BLOOD ORDERABLES Final Res ult [facility] [place] [address] * ECG 12 lead (2024 10:48 PM CDT) Ventricular Rate EKG/Min 56 BPM [facility] Atrial Rate 56 BPM [facility] AL-Interval (MSEC) 148 ms [facility] QRS-Interval (MSEC) 84 ms [facility] QT-Interval (MSEC) 530 ms [facility] QTc 511 ms [facility] P [place] 42 degrees [facility] R [place] -13 degrees [facility] T [place] 23 degrees [facility] Diagnosis Sinus bradycardia Prolonged QT Abnormal ECG Confirmed by Abdelrahman Chowdhury MD ([id number]) on 06/24/2024 6:54:15 PM [facility] 2024 10:4 8 PM CDT 06/24/2024 6:54 PM CDT Braeden Alcantar MD ECG ORDERABLES Final Result Performing Organization Address [facility] Co de Phone Number [facility] * (ABNORMAL) POC Blood Gas and Chemistries, Arterial - (2024 9:59 PM CDT) pH, Art POC 7.34(L) 7.35 - 7.45 pCO2, Art POC 33(L) 35 - 45 mmHg [facility] pO2, Art POC 83 83 - 108 mmHg [facility] Na, POC 135 135 - 145 mmol/L [facility] K POC 3.7 3.3 - 4.9 mmol/L [facility] Comment: Interpretive Data Not all point of care methods assess for hemolysis. Confirm with instrument and retest K+ if not consistent with clinical signs and symptoms. Current Interpretive Data was last revised on 2023. Cl, POC 109 97 - 110 mmol/L [facility] Ionized Ca, POC 5.02 4.50 - 5.10 mg/dL [facility] Glucose, POC 155 70 - 199 mg/dL [facility] Lactate POC 0.6(L) 0.7 - 2.0 mmol/L [facility] SO2 (chay) arterial 98(H) 90 - 95 % [facility] Base excess, POC -7.1 mmol/L [facility] HCO3, Art POC 18(L) 20 - 30 mmol/L [facility] Hct, POC 32.0(L) 36.3 - 45.3 % [facility] Total Hb, POC 10.6(L) 11.9 - 15.5 g/dL [facility] Blood 2024 9:59 PM CDT 2024 9:59 PM CDT Braeden Alcantar MD LAB POCT ORDERABLES - DEVICE F inal Result Performing Organization Address City/[facility]/ZIP Co de Phone Number [facility] [place] [address] * XR Abdomen Ap 1 Vw (2024 [...] PM CDT Devon [facility] LAB MICROBIOLOGY - [facility] [place] [address] * Hepatitis C antibody Blood (2024 5:02 PM CDT) Pathologist [facility] Hep C Ab Nonreactive Nonreactive Comment:Antibodies to HCV no t detected. Does NOT exclude the possibility of recent exposure to HCV. Current interpretive data was last revised on 21 Blood 2024 5:02 PM CDT 2024 5:30 PM CDT us Devon [facility] LAB MICROBIOLOGY - GENER AL ORDERABLES Final Result Performing Organization Address [facility] [place] [address] * RPR Blood (2024 5:02 PM CDT) [facility] RPR Nonreactive Nonreactive Blood 2024 5:02 PM CDT 2024 5:30 PM CDT us Devon CENT[facility] LAB MICROBIOLOGY - GENER AL ORDERABLES Final Result Performing Organization Address [facility] Co de Phone Number [facility] [employer] [place] [address] * Hepatitis B Surface Antigen Blood (2024 5:02 PM CDT) [facility] HepBsAg Nonreactive Nonreactive Blood 2024 5:0 2 PM CDT 2024 5:30 PM CDT us Devon [facility] LAB MICROBIOLOGY - GENER AL ORDERABLES Final Result Performing Organization Address [facility] Co de Phone Number [facility] [employer] [place] [address] * Lactate (2024 5:00 PM CDT) Lactate 0.7 0.7 - 2.0 mmol/L Blood 2024 5:00 PM CDT 2024 5:31 PM CDT Braeden Alcantar MD LAB BLOOD ORDERABLES Final Res ult Performing Organization Address City/[facility]/ZIP Co de Phone Number AL[facility] [employer] [place] [address] * (ABNORMAL) eGFR (2024 5:00 PM CDT) [...] ORDERABLES Final Res ult Performing Organization Address City/[facility]/ZIP Co de Phone Number [facility] Department of [employer] [place] [address] * (ABNORMAL) Calcium, ionized (2024 5:00 PM CDT) [facility] Calcium, Ionized 4.43(L) 4.50 - 5.10 mg/dL Blood 2024 5:00 PM CDT 2024 5:37 PM CDT Braeden Alcantar MD LAB BLOOD ORDERABLES Final Res ult [facility] [place] [address] * (ABNORMAL) CBC without differential (2024 5:00 PM CDT) [facility] WBC 7.37 3.80 - 9.90 K/cumm Hgb 10.2(L) 11.9 - 15.5 g/dL [facility] Hct 29.8(L) 35.6 - 45.5 % [facility] Plt 152 150 - 400 K/cumm [facility] MPV 10.9 9.1 - 12.3 fL [facility] RBC 3.20(L) 3.90 - 5.20 M/cumm [facility] MCV 93.1 81.3 - 96.4 fL [facility] MCH 31.9 27.1 - 33.3 pg [facility] MCHC 34.2 32.3 - 35.7 g/dL [facility] RDW CV 14.2 11.1 - 14.9 % [facility] RDW SD 49.1(H) 35.7 - 48.1 fL [facility] NRBC abs 0.00 0.00 - 0.01 K/cumm [facility] Blood 2024 5:00 PM CDT 2024 5:30 PM CDT Braeden Alcantar MD LAB BLOOD ORDERABLES Final Res ult [facility] [place] [address] * Phosphorus (2024 5:00 PM CDT) Pathologist [facility] Phosphorus, pl 2.6 2.3 - 4.5 mg/dL Blood 2024 5:00 PM CDT 2024 5:37 PM CDT Braeden Alcantar MD LAB BLOOD ORDERABLES Final Res ult Performing Organization Address City/[facility] Co de Phone Number [facility] Department [place] [address] * Magnesium (2024 5:00 PM CDT) [facility] Magnesium 1.7 1.4 - 2.5 mg/dL Blood 2024 5:00 PM CDT 2024 5:37 PM CDT Braeden Alcantar MD LAB BLOOD ORDERABLES Final Res ult Performing Organization Address [facility] de Phone Number [facility] [place] [address] * (ABNORMAL) Blood gas, arterial (2024 5:00 PM CDT) Pathologist [facility] pH, Art 7.36 7.35 - 7.45 PCO2, Arterial 34(L) 35 - 45 mmHg [facility] PO2, Arterial 125(H) 83 - 108 mmHg [facility] HCO3 Art (Calculated) 20 20 - 30 mmol/L [facility] BE, art -6 mmol/L [facility] Comment: Interpretive Data No Reference Range Established Current Interpretive Data was last revised on 2017 O2 Sat Art (Measured) 98(H) 90 - 95 % [facility] Blood 2024 5:00 PM CDT 2024 5:22 PM CDT Braeden Alcantar MD LAB BLOOD ORDERABLES Final Res ult [facility] [place] [address] * (ABNORMAL) Basic metabolic panel (2024 5:00 PM CDT) Pathologist [facility] Sodium 142 135 - 145 mmol/L Potassium, pl 3.1(L) 3.3 - 4.9 mmol/L [facility] Chloride 107 97 - 110 mmol/L [facility] CO2 23 22 - 32 mmol/L [facility] Anion gap 12 2 - 15 mmol/L [facility] BUN 15 6 - 25 mg/dL [facility] Creatinine 1.12(H) 0.60 - 1.10 mg/dL [facility] Glucose 126 70 - 199 mg/dL [facility] Comment: Interpretive Data Fasting glucose [...] 2022. Calcium 8.1(L) 8.5 - 10.3 mg/dL [facility] Blood 2024 5:00 PM CDT 2024 5:37 PM CDT us Braeden Alcantar MD LAB BLOOD ORDERABLES Final Res ult Performing Organization Address City/[facility]/ZIP Co de Phone Number [facility] [place] [address] * ECG 12 lead (2024 4:29 PM CDT) Ventricular Rate EKG/Min 63 BPM [facility] Atrial Rate 63 BPM [facility] AL-Interval (MSEC) 144 ms [facility] QRS-Interval (MSEC) 86 ms [facility] QT-Interval (MSEC) 498 ms [facility] QTc 509 ms [facility] P [place] 17 degrees [facility] R [place] -22 degrees [facility] T [place] 12 degrees [facility] Diagnosis Normal sinus rhythm Minimal voltage criteria for LVH, may be normal variant Prolonged QT Abnormal ECG Confirmed by Abdelrahman Chowdhury MD ([id number]) on 06/24/2024 6:57:56 PM [facility] 2024 4:29 PM CDT 06/24/2024 6:57 PM CDT us Braeden Alcantar MD ECG ORDERABLES Final Result [facility] * (ABNORMAL) POC Blood Gas and Chemistries, Arterial - (2024 3:47 PM CDT) pH, Art POC 7.42 7.35 - 7.45 pCO2, Art POC 31(L) 35 - 45 mmHg [facility] pO2, Art POC 158(H) 83 - 108 mmHg [facility] Na, POC 139 135 - 145 mmol/L [facility] K POC 2.9(L) 3.3 - 4.9 mmol/L [facility] Comment: Interpretive Data Not all point of care methods assess for hemolysis. Confirm with instrument and retest K+ if not consistent with clinical signs and symptoms. Current Interpretive Data was last revised on 2023. Cl, POC 112(H) 97 - 110 mmol/L [facility] Ionized Ca, POC 4.44(L) 4.50 - 5.10 mg/dL [facility] Glucose, POC 116 70 - 199 mg/dL [facility] Lactate POC 1.2 0.7 - 2.0 mmol/L [facility] SO2 (chay) arterial 100(H) 90 - 95 % [facility] Base excess, POC -3.6 mmol/L [facility] HCO3, Art POC 20 20 - 30 mmol/L [facility] Hct, POC 31.0(L) 36.3 - 45.3 % [facility] Total Hb, POC 10.3(L) 11.9 - 15.5 g/dL [facility] Blood 2024 3:47 PM CDT 2024 3:47 PM CDT Braeden Alcantar MD LAB POCT ORDERABLES - DEVICE F inal Result Performing Organization Address City/[facility]/ZIP Co de Phone Number [facility] [place] [address] * FL Fluoroscopy < 1 Hour (2024 3:20 PM CDT) Narrative [facility] - 2024 3:20 PM CDT The images from this study are not interpreted by Radiology. Please refer to the physician's procedure / OR operative note. Chelsea Haywood MD IMG FLUOROSCOPY PROCEDURES Fin al Result Performing Organization Address [facility] Co de Phone Number [facility] * (ABNORMAL) Urine culture Urine, [...] (clinically insignificant growth. (.) Organism ESCHERICHIA COLI [facility] Urine, bladder 2024 3: 20 PM CDT 2024 5:31 PM CDT Narrative [facility] - 06/27/2024 10:28 AM CDT URINE CULTURE Indications for Culture:->Urology patient Testing performed by [facility] ([phone]) Organism Antibiotic Method Susceptibility Escherichia coli Ampicillin [...] Edited Result - Final Performing Organization Address City/[facility]/ZIP Co de Phone Number [facility] Department of [employer] [place] [address] * Lactate (2024 1:07 PM CDT) Pathologist [facility] Lactate 0.8 0.7 - 2.0 mmol/L Blood 2024 1:07 PM CDT 2024 1:40 PM CDT us Lyla Jenkins NP LAB BLOOD ORDERABLES Final Res ult Performing Organization Address [facility] Co de Phone Number [facility] Department of [employer] [place] [address] * (ABNORMAL) eGFR (2024 1:07 PM CDT) [...] CDT 2024 2:06 PM CDT Lyla Jenkins SEARCH OPTIMIZATION ANALYST LAB BLOOD ORDERABLES Final Res ult Performing Organization Address City/[facility]/ZIP Co de Phone Number [facility] [place] [address] * (ABNORMAL) CBC without differential (2024 1:07 PM CDT) WBC 7.70 3.80 - 9.90 K/cumm Hgb 10.6(L) 11.9 - 15.5 g/dL [facility] Hct 30.6(L) 35.6 - 45.5 % [facility] Plt 161 150 - 400 K/cumm [facility] MPV 11.0 9.1 - 12.3 fL [facility] RBC 3.31(L) 3.90 - 5.20 M/cumm [facility] MCV 92.4 81.3 - 96.4 fL [facility] MCH 32.0 27.1 - 33.3 pg [facility] MCHC 34.6 32.3 - 35.7 g/dL [facility] RDW CV 14.3 11.1 - 14.9 % [facility] RDW SD 49.0(H) 35.7 - 48.1 fL [facility] NRBC abs 0.00 0.00 - 0.01 K/cumm [facility] Blood 2024 1:07 PM CDT 2024 2:06 PM CDT Lyla Jenkins NP LAB BLOOD ORDERABLES Final Res ult [facility] [place] [address] * (ABNORMAL) Basic metabolic panel (2024 1:07 PM CDT) Sodium 139 135 - 145 mmol/L Potassium, pl 3.3 3.3 - 4.9 mmol/L [facility] Chloride 108 97 - 110 mmol/L [facility] CO2 21(L) 22 - 32 mmol/L [facility] Anion gap 10 2 - 15 mmol/L [facility] BUN 16 6 - 25 mg/dL [facility] Creatinine 1.21(H) 0.60 - 1.10 mg/dL [facility] Glucose 100 70 - 199 mg/dL [facility] Comment: Interpretive Data Fasting glucose [...] 2022. Calcium 7.8(L) 8.5 - 10.3 mg/dL [facility] Blood 2024 1:07 PM CDT 2024 2:06 PM CDT us Lyla Jenkins NP LAB BLOOD ORDERABLES Final Res ult [facility] [place] [address] * Urine culture Urine, clean voided (2024 8:45 AM CDT) Report Final Report: Less than 100,000 colonies/mL (clinically insignificant growth based on current clinical standards) Organism (CLINICALLY INSIGNIFICANT GROWTH [facility] Urine, clean voided 2024 8:45 AM CDT 2024 9:43 AM CDT Narrative [facility] - 06/22/2024 12:09 PM CDT Indications for Culture:->Recent positive UA Testing performed by [facility] ([phone]) Braeden Alcantar MD LAB MICROBIOLOGY - GENERAL ORD ERABLES Final Result [facility] [place] [address] * (ABNORMAL) Urinalysis reflex to microscopic (2024 8:32 AM CDT) Color, ur Yellow Yellow Clarity, ur Turbid(A) Clear [facility] Specific gravity, ur 1.017 1.003 - 1.030 [facility] pH, urine 6.0 [facility] Comment: Interpretive Data U rine pH is affected by diet, medications, systemic acid-base disturbances, and renal tubular function. pH may affect urinary stone formation. For example, urine pH below 6.0 may help reduce the tendency for calcium phosphate stones and pH greater than 6.0 may reduce the tendency for uric acid stone formation. Source: [facility] Current Interpretive Data was last revised on 2017 Protein, ur ql 2+(A) Negative [facility] Glucose, ur ql Negative Negative [facility] Ketones, ur 1+(A) Negative [facility] Bilirubin, ur Negative Negative [facility] Blood, ur 1+(A) Negative [facility] Urobilinogen, ur <2.0 <2.0 mg/dL [facility] Nitrite, ur Positive(A) Negative [facility] Leukocyte esterase, ur 3+(A) Negative [facility] UA reflex comment Reflex to microscopic UA will be performed. [facility] Urine 2024 8:32 AM CDT 2024 9:19 AM CDT Braeden Alcantar MD LAB URINE ORDERABLES Final Res ult Performing Organization Address City/[facility]/ZIP Co de Phone Number [facility] [place] [address] * (ABNORMAL) Urinalysis, microscopic only (2024 8:32 AM CDT) WBC, ur >50(A) 0 - 5 /HPF RBC, ur 6-10(A) 0 - 2 /HPF [facility] Epithelial cells, squamous, ur 1-5 0 - 5 /HPF [facility] Bacteria, ur 4+(A) [facility] Urine 2024 8:32 AM CDT 2024 9:19 AM CDT Braeden Alcantar MD LAB URINE ORDERABLES Final Res ult Performing Organization Address [facility] de Phone Number [facility] Department [place] [address] * US Kidney Complete (2024 12:33 AM [...] by: Yojana Perez M.D. Miko Edwards MD [facility] US PROCEDURES Final Result * Check Sample (06/20/2024 11:13 PM CDT) ABO Rh A Negative [facility] OTHER 06/20/2024 11:1 3 PM CDT 06/20/2024 11:45 PM CDT us Carlos Palomares MD LAB BLOOD ORDERABLES Shanell l Result [facility] [place] [address] [facility] * XR Chest 1 [...] images may or may not represent the [place] source data set and thus may contain changes that may lower the accuracy of this second-opinion interpretation. Dictated by: Bhupinder Pearl MD The radiology attending physician has personally reviewed this study, and had reviewed and/or edited this written report and agrees with it. Electronically signed by: Braeedn Lyle M.D. Narrative 2024 8:52 AM CDT EXAMINATION: RADIOLOGY CONSULTATION ON OUTSIDE IMAGING STUDY STUDY INITIALLY PERFORMED: 06/20/2024 at [facility]. TYPE OF STUDY: Multiple CT images of [...] IMAGING STUDY STUDY INITIALLY PERFORMED: 06/20/2024 at [facility]. TYPE OF STUDY: Multiple CT images of [...] images may or may not represent the [place] source data set and thus may contain [...] only and have not been reviewed by [facility] Radiology. There will be no report generated by a [facility] Radiologist. Narrative [facility] - 06/20/2024 10:49 PM CDT EXAMINATION: Images For Reference Purposes Only Marc Grijalva MD IMG CT PROCEDURES Final Result [facility] * ECG 12-LEAD (06/20/2024 10:46 PM CDT) Narrative [facility] - 06/20/2024 10:46 PM CDT [...] evidence of acuteischemia. Carlos Palomares MD 06/20/24 2644 Miko Edwards MD ECG ORDERABLES Final R esult Performing Organization Address [facility]/ZIP Co de Phone Number [facility] * Sepsis Lactate w/ Reflex (06/20/2024 10:38 PM CDT) [facility] Sepsis Lactate 1.1 0.7 - 2.0 mmol/L Blood 06/20/2024 10:3 8 PM CDT 06/20/2024 10:42 PM CDT Carlos Palomares MD LAB BLOOD ORDERABLES Shanell l Result Performing Organization Address [facility] Co de Phone Number [facility] [place] [address] * POCT glucose (06/20/2024 10:27 PM CDT) [facility] Glucose, POC 162 70 - 199 mg/dL Blood 06/20/2024 10:2 7 PM CDT 06/20/2024 10:27 PM CDT Carlos Palomares MD LAB POCT ORDERABLES - DEV ICE Final Result Performing Organization Address [facility] de Phone Number [facility] Department [place] [address] * (ABNORMAL) eGFR (06/20/2024 10:24 PM CDT) [facility] eGFR 37(L) >=60 mL/min/1. 73 m2 [...] MD LAB BLOOD ORDERABLES Fi nal Result [facility] [place] [address] * (ABNORMAL) Differential, auto (06/20/2024 10:24 PM CDT) Neutrophil abs 8.00(H) 1.50 - 6.50 K/cumm Imm gran abs 0.12(H) 0.00 - 0.10 K/cumm [facility] Lymphocyte abs 1.11 0.80 - 3.30 K/cumm [facility] Monocyte abs 1.06(H) 0.20 - 0.80 K/cumm [facility] Eosinophil abs 0.00 0.00 - 0.50 K/cumm [facility] Basophil abs 0.04 0.00 - 0.10 K/cumm [facility] Neutrophil pct 77.4 % [facility] Comment: Interpretive Data Percent cell count reference ranges are not reported, since discordance with absolute values may lead to misinterpretation of CBC data. Current Interpretive Data was last revised on 2017. Imm gran pct 1.2 % [facility] Comment: Interpretive Data Percent cell count reference ranges are not reported, since discordance with absolute values may lead to misinterpretation of CBC data. Current Interpretive Data was last revised on 2017. Lymphocyte pct 10.7 % [facility] Comment: Interpretive Data Percent cell count reference ranges are not reported, since discordance with absolute values may lead to misinterpretation of CBC data. Current Interpretive Data was last revised on 2017. Monocyte pct 10.3 % [facility] Comment: Interpretive Data Percent cell count reference ranges are not reported, since discordance with absolute values may lead to misinterpretation of CBC data. Current Interpretive Data was last revised on 2017. Eosinophil pct 0.0 % [facility] Comment: Interpretive Data Percent cell count reference ranges are not reported, since discordance with absolute values may lead to misinterpretation of CBC data. Current Interpretive Data was last revised on 2017. Basophil pct 0.4 % [facility] Comment: Interpretive Data Percent cell count reference ranges are not reported, since discordance with absolute values may lead to misinterpretation of CBC data. Current Interpretive Data was last revised on 2017. Blood 06/20/2024 10:2 4 PM CDT 06/20/2024 10:35 PM CDT Miko Edwards MD LAB BLOOD ORDERABLES nal Result [facility] [place] [address] * Respiratory pathogen panel Nasopharyngeal (06/20/2024 10:24 PM CDT) Pathologist [facility] Influenza A RNA Not Detected Not Detected Influenza B RNA Not Detected Not Detected [facility] RSV RNA Not Detected Not Detected [facility] COVID-19 RNA Not Detected Not Detected [facility] Coronavirus 229E RNA Not Detected Not Detected [facility] Coronavirus HKU1 RNA Not Detected Not Detected [facility] Coronavirus NL63 RNA Not Detected Not Detected [facility] Coronavirus OC43 RNA Not Detected Not Detected [facility] Adenovirus DNA Not Detected Not Detected [facility] Metapneumovirus RNA Not Detected Not Detected [facility] Rhinovirus/Enterov irus RNA Not Detected Not Detected [facility] Parainfluenza 1 RNA Not Detected Not Detected [facility] Parainfluenza 2 RNA Not Detected Not Detected [facility] Parainfluenza 3 RNA Not Detected Not Detected [facility] Parainfluenza 4 RNA Not Detected Not Detected [facility] B. pertussis DNA Not Detected Not Detected [facility] B. parapertussis DNA Not Detected Not Detected [facility] C. pneumoniae DNA Not Detected Not Detected [facility] M. pneumoniae DNA Not Detected Not Detected [facility] Nasopharyngeal 06/20/2024 10 :24 PM CDT 06/20/2024 10:40 PM CDT Narrative [facility] - 06/20/2024 11:35 PM CDT Is the Patient experiencing symptoms consistent with COVID?->No Surveillance testing for transplant patient?->No Interpretive Data The Zero2IP[employer] FilmArray Respiratory Panel (RP2.1) assay is a [...] assay has FDA clearance for testing of SEARCH OPTIMIZATION ANALYST swabs. The performance of additional specimen types has been assessed by the performing laboratory. The performance characteristics of this assay have been determined by [facility] Molecular Infectious Disease Laboratory. Current interpretive data was last revised on 21. Miko Edwards MD LAB MICROBIOLOGY - [facility] ORDERABLES Final Result [facility] [place] [address] * (ABNORMAL) CBC with auto differential (06/20/2024 10:24 PM CDT) WBC 10.33(H) 3.80 - 9.90 K/cumm Hgb 10.6(L) 11.9 - 15.5 g/dL [facility] Hct 31.6(L) 35.6 - 45.5 % [facility] Plt 167 150 - 400 K/cumm [facility] MPV 10.3 9.1 - 12.3 fL [facility] RBC 3.37(L) 3.90 - 5.20 M/cumm [facility] MCV 93.8 81.3 - 96.4 fL [facility] MCH 31.5 27.1 - 33.3 pg [facility] MCHC 33.5 32.3 - 35.7 g/dL [facility] RDW CV 14.0 11.1 - 14.9 % [facility] [facility] RDW SD 47.5 35.7 - 48.1 fL [facility] NRBC abs 0.02(H) 0.00 - 0.01 K/cumm [facility] Blood 06/20/2024 10:2 4 PM CDT 06/20/2024 10:35 PM CDT Miko Edwards MD LAB BLOOD ORDERABLES Fi nal Result Performing Organization Address [facility]/ZIP Co de Phone Number [facility] Department [place] [address] * Blood culture Blood Peripheral (06/20/2024 10:24 [...] performance characteristics have been verified by the [facility]. For questions about this culture, contact the Microbiology Laboratory at [phone]. Interpretive data was last revised on 23. Miko Edwards MD LAB MICROBIOLOGY - GENE RAL ORDERABLES Final Result Performing Organization Address City/[facility] Co de Phone Number [facility] Department [place] [address] * Blood culture Blood Peripheral (06/20/2024 10:24 [...] performance characteristics have been verified by the [facility]. For questions about this culture, contact the Microbiology Laboratory at [phone]. Interpretive data was last revised on 23. us Miko Edwards MD LAB MICROBIOLOGY - GENE [facility] ORDERABLES Final Result ALMA Arellano [facility] Department [place] [address] * aPTT (06/20/2024 10:24 PM CDT) aPTT [...] ORDERABLES Fi nal Result Performing Organization Address [facility] de Phone Number [facility] Department [place] [address] * (ABNORMAL) Protime-INR (06/20/2024 10:24 PM CDT) PT 13.5(H) 9.7 - 13.0 sec INR 1.24(H) 0.90 - 1.20 [facility] Comment: Interpretive data Oral anticoagulant therapeutic ranges: Venous thromboembolism prophylaxis or treatment: 2.0-3.0 CARDIOLOGY Standard range: 2.0-3.0 High-intensity range: 2.5-3.5 Refer to indication-specific guidelines for appropriate target ranges for prosthetic heart valve replacement. Current interpretive data was last revised on 2019. Blood 06/20/2024 10:2 4 PM CDT 06/20/2024 10:38 PM CDT Result [facility] Miko Edwards MD LAB BLOOD ORDERABLES Fi nal Result Performing Organization Address [facility] Co de Phone Number [facility] Department [place] [address] * Type and screen (06/20/2024 10:24 PM CDT) ABO Rh A Negative Jeanette, indirect Negative [facility] Blood 06/20/2024 10:2 4 PM CDT 06/20/2024 10:42 PM CDT Narrative [facility] - 06/20/2024 11:43 PM CDT Has the patient had Daratumumab or Isatuximab in the past 6 months?->Unknown Miko Edwards MD LAB BLOOD BANK TEST ORD ERABLES Final Result [facility] Department [place] [address] * (ABNORMAL) Basic metabolic panel (06/20/2024 10:24 PM CDT) [facility] Sodium 138 135 - 145 mmol/L Potassium, pl 3.3 3.3 - 4.9 mmol/L [facility] Chloride 106 97 - 110 mmol/L [facility] CO2 22 22 - 32 mmol/L [facility] Anion gap 10 2 - 15 mmol/L [facility] BUN 19 6 - 25 mg/dL [facility] Creatinine 1.56(H) 0.60 - 1.10 mg/dL [facility] Glucose 134 70 - 199 mg/dL [facility] Comment: Interpretive Data Fasting glucose [...] 2022. Calcium 7.2(L) 8.5 - 10.3 mg/dL [facility] Blood 06/20/2024 10:2 4 PM CDT 06/20/2024 10:35 PM CDT Miko Edwards MD LAB BLOOD ORDERABLES Fi nal Result [facility] Department [place] [address] * COLONOSCOPY (07/18/2017 9:10 AM CDT) Anatomical Region Laterality Modality Other Narrative Procedure Note Mike Locke MD - 07/18/2017 9:10 AM CDT [facility] Patient Name: Juli Koo Procedure Date: 07/18/2017 9:10 AM Date of : 1960 Admit Type: Outpatient Age: 57 Gender: Female Attending MD: Mike Locke MD Room: [facility] ENDOSCOPY CAPSULE Note Status: Finalized Patient Profile: [...] passed under direct vision.The Pediatric Colonoscope PCF-H190L [id number] was introduced through the anus and advanced [...] 9:10 AM Procedure Code(s): --- Professional --- 74120, Colonoscopy, flexible; diagnostic, including collection of specimen(s) by brushing or washing, when performed (separateprocedure) Diagnosis Code(s): --- Professional --- Z86.010, Personal history of colonic polyps K64.8, Other hemorrhoids K57.30, Diverticulosis of large intestine without perforation orabscess without bleeding CPT copyright 2017 [employer]. All rights reserved. The codes documented in this report are preliminary and upon sales account coordinator reviewmay be revised to meet current compliance requirements. 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 [id number] [place] [address] [facility] WORK[employer] COMPENSATION GENERIC Member Subscriber Plan / Payer (Ef fective 2022-Present) Name:Juli Koo Relation to Subscriber:Self Name:Juli Koo Payer ID:[id number] Group ID:Not on file Type:WORKERS COMPENSATION Address: [place] [phone] [facility] Advance Directives For more information, please contact: [phone] * Full Code (Latest Code Status on [...] 8:32 AM 07/18/2017 12:39 PM Care Teams Blindstitch Lapel Padder Relationship Specialty Start Date End Date Yancy Guerrero MD [address] [place] [address] PCP - General 05/22/16 Lupillo Reyes MD [address] [address] Consulting Physician Orthopedic Surgery 07/26/22
[2024-07-12 21:45] LABS: Basophils Absolute Auto 0.02 K/mm3 (0.00-0.10); Basophils Percent Auto 0.3 % (0.0-1.0); Eosinophils Absolute Auto 0.12 K/mm3 (0.02-0.50); Eosinophils Percent Auto 1.8 % (1.0-6.0); Hematocrit 36.4 % (35.0-49.0); Immature Granulocyte Absolute 0.02 K/mm3 (0.00-0.00); Immature Granulocyte Percent A 0.3 % (0.0-0.0); Lymphocytes Absolute Auto 2.59 K/mm3 (1.10-4.50); Lymphocytes Percent Auto 38.5 % (18.0-42.0); Mean Corpuscular Hemoglobin 31.1 pg (27.0-31.0); Mean Corpuscular Volume 94.3 fL (78.0-102.0); Mean Platelet Volume 9.8 fl (9.2-11.8); Monocytes Absolute Auto 0.83 K/mm3 (0.10-0.90); Monocytes Percent Auto 12.3 % (2.0-11.0); Neutrophils Absolute Auto 3.15 K/mm3 (1.70-7.20); Neutrophils Percent Auto 46.8 % (50.0-70.0); Platelet Count Result 265 K/mm3 (150-420); Red Blood Count 3.86 M/mm3 (4.20-5.40); Red Cell Distribution Width 13.2 % (11.6-14.4); White Blood Count 6.7 K/mm3 (4.8-10.8)
[2024-07-12 21:58] LABS: Ethanol 221 mg/dL (<10)
[2024-07-12 21:59] LABS: Lactic Acid Reflex 2.8 mmol/L (0.4-2.0)
[2024-07-12 22:00] LABS: Chloride 107 mmol/L (98-107); Potassium 3.1 mmol/L (3.4-5.0); Sodium 141 mmol/L (137-145)
[2024-07-12 22:01] LABS: Alanine Aminotransferase 15 U/L (6-35); Albumin Level 3.7 g/dL (3.5-5.1); Anion Gap 13 mmol/L (4-12); Aspartate Amino Transferase 25 U/L (14-36); Bilirubin,Total 0.3 mg/dL (0.2-1.3); Blood Urea Nitrogen 11 mg/dL (7-17); Calcium 8.8 mg/dL (8.4-10.2); Carbon Dioxide 21 mmol/L (22-30); Estimated CRCL calculation 70 ml/min; Estimated Glomerular Filt Rate > 60; Glucose 109 mg/dL (65-110); Osmolality Calculated 292 mOsm/kg (285-295)
[2024-07-12 22:02] LABS: Alkaline Phosphatase 81 U/L (38-126)
[2024-07-12 22:15] LABS: Troponin I < 0.012 ng/mL (0.000-0.034)
[2024-07-12] MEDS: LORazepam INJ (*CRX) 2 MG/ML VIAL 0.5 MG IV PUSH (22:15)
[2024-07-12] MEDS: SODIUM CHLORIDE 0.9% IV 1,000 ML 999 ML IV CONT (22:16)
--- NOTE | 2024-07-12 23:02 | PC.NURSE ---
report to monica daniel
--- NOTE | 2024-07-12 23:05 | PC.NURSE ---
call to charge nurse, reyes, bed requested for admission.
[2024-07-12] MEDS: POTASSIUM CHLORIDE 20 MEQ ER TABLET PO (23:10)
--- NOTE | 2024-07-12 23:18 | PC.NURSE ---
ED SBAR printed and reviewed. Room is ready for admission.
[2024-07-12 23:42] LABS: Reflex Lactic Acid Yes or No Add Lactic
--- NOTE | 2024-07-12 23:47 | ADMGEN ---
This patient, Camille Shultz, was admitted to 2nd Floor Room 209-1. Patient oriented to hospital policies and general routines including ID bracelet, bed and alarms, visiting hours, pain management, procedures, bathroom and other care routines, personal items, smoking policy, room service/diet, and visiting hours. Information on how to activate the Rapid Response Team has been discussed. Patient are encouraged to report perceived risks to care and to ask questions if they do not understand what they are told or what they should do.
[2024-07-13] VITALS: BP 109/67; PULSE 89; RESP 17; TEMP 36.4; O2SAT 93
[2024-07-13 00:13] LABS: Glucose Point of Care 104 mg/dl (65-105)
[2024-07-13 00:16] LABS: Lactic Acid 2.1 mmol/L (0.7-2.0)
[2024-07-13] MEDS: SODIUM CHLORIDE 0.9% IV 1,000 ML 125 ML IV CONT (03:11)
[2024-07-13] MEDS: ACETAMINOPHEN 325 MG TABLET 650 MG PO (03:14)
[2024-07-13 04:00] VITALS: BP 141/82; PULSE 92; PULSE 94; RESP 15; TEMP 36.2; O2SAT 92
[2024-07-13 05:30] LABS: Basophils Absolute Auto 0.02 K/mm3 (0.00-0.10); Basophils Percent Auto 0.3 % (0.0-1.0); Eosinophils Absolute Auto 0.16 K/mm3 (0.02-0.50); Eosinophils Percent Auto 2.6 % (1.0-6.0); Hematocrit 34.6 % (35.0-49.0); Hemoglobin 11.5 g/dL (12.0-15.0); Immature Granulocyte Absolute 0.02 K/mm3 (0.00-0.00); Immature Granulocyte Percent A 0.3 % (0.0-0.0); Lymphocytes Absolute Auto 2.06 K/mm3 (1.10-4.50); Mean Corpuscular HGB Conc 33.2 g/dL (32-36); Mean Corpuscular Hemoglobin 31.3 pg (27.0-31.0); Mean Platelet Volume 9.4 fl (9.2-11.8); Monocytes Absolute Auto 0.74 K/mm3 (0.10-0.90); Monocytes Percent Auto 11.9 % (2.0-11.0); Neutrophils Absolute Auto 3.24 K/mm3 (1.70-7.20); Neutrophils Percent Auto 51.9 % (50.0-70.0); Platelet Count Result 241 K/mm3 (150-420); Red Blood Count 3.68 M/mm3 (4.20-5.40); Red Cell Distribution Width 13.1 % (11.6-14.4); White Blood Count 6.2 K/mm3 (4.8-10.8)
[2024-07-13 05:41] LABS: Alanine Aminotransferase 16 U/L (6-35); Albumin Level 3.4 g/dL (3.5-5.1); Alkaline Phosphatase 79 U/L (38-126); Anion Gap 4 mmol/L (4-12); Aspartate Amino Transferase 26 U/L (14-36); Bilirubin,Total 0.3 mg/dL (0.2-1.3); Blood Urea Nitrogen 13 mg/dL (7-17); Calcium 8.3 mg/dL (8.4-10.2); Carbon Dioxide 29 mmol/L (22-30); Chloride 107 mmol/L (98-107); Estimated CRCL calculation 82 ml/min; Estimated Glomerular Filt Rate > 60; Glucose 116 mg/dL (65-110); Osmolality Calculated 291 mOsm/kg (285-295); Potassium 3.2 mmol/L (3.4-5.0); Sodium 140 mmol/L (137-145); Total Protein 6.7 g/dL (6.3-8.2)
[2024-07-13 05:42] LABS: Lactic Acid Reflex 0.8 mmol/L (0.4-2.0)
[2024-07-13 08:00] VITALS: BP 137/78; PULSE 88; PULSE 96; RESP 14; TEMP 36.4; O2SAT 94
[2024-07-13 09:17] VITALS: PULSE 96
[2024-07-13] MEDS: POTASSIUM CHLORIDE 10 MEQ ER TABLET PO (09:17)
[2024-07-13] MEDS: ATORVASTATIN 40 MG TABLET 80 MG PO (09:17)
[2024-07-13] MEDS: METOPROLOL SUCCINATE EXT REL 25 MG TABCR 75 MG PO (09:17)
[2024-07-13] MEDS: CITALOPRAM HYDROBROMIDE 20 MG TABLET 40 MG PO (09:18)
--- NOTE | 2024-07-13 11:59 | PM.IMHP ---
H&P: HPI History of Present Illness Date/Time: 07/13/24 11:59 Chief Complaint: AMS Narrative: 64 yo female with PMH Hypertension, endometriosis, anxiety and UTI how was brought to the ER yesterday on account AMS. Patient noted she has not drunk alcohol since about mid May, however yesterday she decided to drink some alcohol to relax. noted she had about 9 drinks. Afterwards a friend called her on the phone and noted that she sounded delirious, informed her daughter who called the police for a welfare check. Patient was brought to the ER for alcohol intoxication. She denies any chest pain, SOB, ABd pain, diarrhea, vomiting, focal weakness and no dysuria. Noted she is on antibiotics for UTI disgnosed recently and has follow up with urology. Strongly denies sari alcohol use and no smoking. ER eval V/s stable and wnl. Labs K 3.1, lactic acid 2.8, anion gap 13, UA unremarkable CT head and CXR unremarkable. was started on IVF and admitted for observation overnight. Review of Systems Review of Systems: All other systems were reviewed and negative except as noted in the HPI above PMFSH Past Medical History Medical History Endometriosis Anxiety Tachycardia HTN (hypertension) Surgical History Surgical History History of [facility] Family History Family History Father , father at age 62 of mesothelioma Mesothelioma FH: carotid endarterectomy Hyperlipidemia Diabetes mellitus Hypertension Heart disease Mother Congestive heart failure Acute myocardial infarction due to DE Hypertension Heart disease Daughter Depression PTSD (post-traumatic stress disorder) Sibling Grand mal seizure S/P CABG x 5 Diabetes mellitus Sibling Hypertension Diabetes mellitus Sibling Diabetes mellitus Social History Social History Years smoked: 2 Smoking status: Current some day smoker Tobacco type: cigarettes Second hand tobacco smoke exposure: Yes Alcohol intake: current Drinks per week: 5 Substance use: never Substance use type: does not use Do You Feel Safe in your Home?: Yes Lack of Transportation: No Lack of Food: Never True Current Housing: I Have Housing Concerned About Future Housing: No Difficulty Paying Gas/Electric Bills: No Difficulty Paying for Meds: No Currently Unemployed: No Education: Associate Degree Difficulty w/ Childcare or Family Care: No Gender identity (if verbalized by the patient): Female Spiritual care concerns: No Agree to blood products: Yes Meds Home Medications and Allergies Home Medications ?Medication ?Instructions ?Recorded ?Confirmed ?Type citalopram 20 mg tablet (Celexa) 40 mg PO DAILY 02/25/19 07/13/24 History lorazepam 0.5 mg tablet (Ativan) 0.5 mg PO PRN PRN Anxiety 12/14/22 07/13/24 History trazodone 100 mg tablet 100 mg PO HS 05/29/23 07/13/24 History potassium chloride 10 mEq 10 meq PO DAILY 05/31/23 07/13/24 History capsule,extended release amlodipine 5 mg tablet 5 mg PO DAILY 06/12/23 07/13/24 History atorvastatin 40 mg tablet 80 mg PO DAILY 06/12/23 07/13/24 History losartan 25 mg tablet (Cozaar) 50 mg PO DAILY 06/12/23 07/13/24 History metoprolol succinate 25 mg 75 mg PO DAILY 06/12/23 07/13/24 History tablet,extended release 24 hr Allergies Allergy/AdvReac Type Severity Reaction Status Date / Time No Known Allergies Allergy Verified 06/20/24 17:18 Vital Signs Vital Signs - 24 hr 07/12/24 21:00 07/12/24 21:56 07/12/24 21:57 Temperature 98.3 F Pulse Rate 86 81 Pulse Rate [Monitor] Respiratory Rate 20 20 Blood Pressure 105/72 89/68 L Pulse Oximetry 93 87 L 89 L Oxygen Delivery Room Air Room Air 07/12/24 22:00 07/12/24 22:01 07/12/24 22:15 Temperature Pulse Rate Pulse Rate [Monitor] Respiratory Rate Blood Pressure 104/68 99/63 L Pulse Oximetry 90 91 90 Oxygen Delivery Room Air 07/12/24 22:16 07/12/24 22:30 07/12/24 22:31 Temperature Pulse Rate Pulse Rate [Monitor] Respiratory Rate Blood Pressure 104/64 Pulse Oximetry 91 90 92 Oxygen Delivery Room Air 07/12/24 22:45 07/12/24 23:19 07/12/24 23:27 Temperature Pulse Rate 74 80 Pulse Rate [Monitor] Respiratory Rate 20 18 Blood Pressure 91/61 L 102/46 L Pulse Oximetry 92 91 93 Oxygen Delivery Room Air Room Air 07/12/24 23:27 07/13/24 00:00 07/13/24 04:00 Temperature 97.6 F Pulse Rate 89 92 Pulse Rate [Monitor] Respiratory Rate 17 Blood Pressure 109/67 Pulse Oximetry 93 93 Oxygen Delivery Room Air Room Air 07/13/24 04:00 07/13/24 08:00 07/13/24 08:00 Temperature 97.2 F L Pulse Rate 94 96 Pulse Rate [Monitor] 88 Respiratory Rate 15 Blood Pressure 141/82 H 137/78 Pulse Oximetry 92 Oxygen Delivery Room Air 07/13/24 08:00 07/13/24 09:17 Temperature 97.6 F Pulse Rate 88 96 Pulse Rate [Monitor] Respiratory Rate 14 Blood Pressure 137/78 Pulse Oximetry 94 Oxygen Delivery Room Air Exam Narrative: General: alert and comfortable Eyes: EOMI, PERRLA ENNT External ears normal, Neck is supple, no masses, Respiratory systems: Clear to auscultation Cardiovascular S1, S2, normal rhythm, no murmur, rub, or gallop; no thrill or palpable murmurs on palpation. Gastrointestinal: soft, non-tender, and non-distended abdomen with no masses; BS present Skin: no rash, lesions, ulcerations, subcutaneous nodules or induration Musculoskeletal: no abnormality and no tenderness, normal ROM Neurologic: Alert and oriented x3, non focal Mental Status Exam: normal affect H&P: Results Labs Labs: Short CBC 07/12/24 07/13/24 Range/Units 21:31 05:26 WBC 6.7 6.2 (4.8-10.8) K/mm3 Hgb 12.0 11.5 L (12.0-15.0) g/dL Hct 36.4 34.6 L (35.0-49.0) % Plt Count 265 241 (150-420) K/mm3 [facility] 07/12/24 07/13/24 21:31 05:26 Sodium 141 140 Potassium 3.1 L 3.2 L Chloride 107 107 Carbon Dioxide 21 L 29 BUN 11 13 Creatinine 0.77 0.63 L Glucose 109 116 H Calcium 8.8 8.3 L Cardiac Enzymes 07/12/24 Range/Units 21:31 Troponin I < 0.012 (0.000-0.034) ng/mL Liver Function 07/12/24 07/13/24 Range/Units 21:31 05:26 Total Bilirubin 0.3 0.3 (0.2-1.3) mg/dL AST 25 26 (14-36) U/L ALT 15 16 (6-35) U/L Alkaline Phosphatase 81 79 (38-126) U/L Albumin 3.7 3.4 L (3.5-5.1) g/dL Urine 07/12/24 Range/Units 21:10 Urine Color Light yellow (Yellow) Urine Appearance Clear (Clear) Urine pH 6.5 (5.0-8.0) Ur Specific [place] <= 1.005 L (1.010-1.020) Urine Protein Negative (Negative) Urine Glucose (UA) Negative (Negative) Assessment and Plan Assessment and plan (1) Alcohol intoxication: Code(s): F10.929 - Alcohol use, unspecified with intoxication, unspecified Status: Acute Plan Alcohol intoxication AMS from alcohol intoxication Patient noted has been teetotal since May and had a binge yesterday CT head and CXR unremarkable Continue IVF Counseled about Alcohol cessation Recent UTI continue Macrobid and continue follow up with urology monitor Hypertension conitnue home meds DVT prophylaxis on Sq Lovenox Full code Hospitalist MIPS Advance Care Plan I have confirmed that the patient's Advanced Care Plan is present, code status is documented, or surrogate decision maker is listed in patient medical record.: Yes Medication Reconciliation I have utilized all available resources to obtain, update and review the patients current medications (includes all prescriptions, OTC, herbals, cannabis, and nutritional supplements).: Yes
[2024-07-13 12:00] VITALS: BP 135/70; PULSE 86
--- NOTE | 2024-07-13 12:33 | PM.DS ---
DS: Admitting Diagnosis Discharge Date 07/13/2024 Admitting Diagnosis AMS DS: Discharge Diagnosis Discharge Diagnosis (1) Alcohol intoxication: Code(s): F10.929 - Alcohol use, unspecified with intoxication, unspecified Status: Acute (2) Hypokalemia: Code(s): E87.6 - Hypokalemia Status: Acute DS: Summary Hospital Course Hospital Course: 64 yo female with PMH Hypertension, endometriosis, anxiety and UTI how was brought to the ER yesterday on account AMS. Patient noted she has not drunk alcohol since about mid May, however yesterday she decided to drink some alcohol to relax. noted she had about 9 drinks. Afterwards a friend called her on the phone and noted that she sounded delirious, informed her daughter who called the police for a welfare check. Patient was brought to the ER for alcohol intoxication. She denies any chest pain, SOB, Abd pain, diarrhea, vomiting, focal weakness and no dysuria. Noted she is on antibiotics for UTI diagnosed recently and has follow up with urology. Strongly denies sari alcohol use and no smoking. ER eval V/s stable and wnl. Labs K 3.1, lactic acid 2.8, anion gap 13, UA unremarkable CT head and CXR unremarkable. was started on IVF and admitted for observation overnight. Patient was observe overnight and started on IVF, lactic and anion gap now normal. Patient alert adn oriented and denies any habitual alcohol use and noted she has been teetotal since May. Counseled about alcohol cessation. Discharged on KCl 20mEq daily x 7 days. Potassium is 3.2 today up from 3.1 Also noted she is on Antibiotics for UTI and has follow up with Urology. Patient encouraged to continue other home meds and continue follow up with Urology F/u with PCP in 3-5 days Time Spent with Patient Time attestation: Total time spent providing and/or coordinating discharge services: DS: Data Data Completed and Pending Labs on day of discharge: Labs from last 24 hours 07/13/24 07/13/24 07/13/24 05:26 00:12 00:00 WBC 6.2 RBC 3.68 L Hgb 11.5 L Hct 34.6 L MCV 94.0 MCH 31.3 H MCHC 33.2 RDW 13.1 Plt Count 241 MPV 9.4 Immature Gran % (Auto) 0.3 H Neut % (Auto) 51.9 Lymph % (Auto) 33.0 Whitman % (Auto) 11.9 H Eos % (Auto) 2.6 Baso % (Auto) 0.3 Lymph # (Auto) 2.06 Whitman # (Auto) 0.74 Eos # (Auto) 0.16 Baso # (Auto) 0.02 Abs Immat Gran (auto) 0.02 H Absolute Neuts (auto) 3.24 Absolute Nucleated RBC 0.00 Nucleated RBC % 0.0 Sodium 140 Potassium 3.2 L Chloride 107 Carbon Dioxide 29 Anion Gap 4 BUN 13 Creatinine 0.63 L Estim Creat Clear Calc 82 Estimated GFR > 60 Glucose 116 H POC Capillary Glucose 104 Calculated Osmolality 291 Lactic Acid 0.8 2.1 H Calcium 8.3 L Total Bilirubin 0.3 AST 26 ALT 16 Alkaline Phosphatase 79 Troponin I Total Protein 6.7 Albumin 3.4 L Urine Color Urine Appearance Urine pH Ur Specific [place] Urine Protein Urine Glucose (UA) Urine Ketones Ur Blood (Man) Urine Nitrate Urine Bilirubin Urine Urobilinogen Leukocyte Esterase Rfl Urine RBC Urine WBC Ur Squamous Epith Cells Urine Bacteria Ethyl Alcohol 07/12/24 07/12/24 21:31 21:10 WBC 6.7 RBC 3.86 L Hgb 12.0 Hct 36.4 MCV 94.3 MCH 31.1 H MCHC 33.0 RDW 13.2 Plt Count 265 MPV 9.8 Immature Gran % (Auto) 0.3 H Neut % (Auto) 46.8 L Lymph % (Auto) 38.5 Whitman % (Auto) 12.3 H Eos % (Auto) 1.8 Baso % (Auto) 0.3 Lymph # (Auto) 2.59 Whitman # (Auto) 0.83 Eos # (Auto) 0.12 Baso # (Auto) 0.02 Abs Immat Gran (auto) 0.02 H Absolute Neuts (auto) 3.15 Absolute Nucleated RBC 0.00 Nucleated RBC % 0.0 Sodium 141 Potassium 3.1 L Chloride 107 Carbon Dioxide 21 L Anion Gap 13 H BUN 11 Creatinine 0.77 Estim Creat Clear Calc 70 Estimated GFR > 60 Glucose 109 POC Capillary Glucose Calculated Osmolality 292 Lactic Acid 2.8 H Calcium 8.8 Total Bilirubin 0.3 AST 25 ALT 15 Alkaline Phosphatase 81 Troponin I < 0.012 Total Protein 7.0 Albumin 3.7 Urine Color Light yellow Urine Appearance Clear Urine pH 6.5 Ur Specific [place] <= 1.005 L Urine Protein Negative Urine Glucose (UA) Negative Urine Ketones Negative Ur Blood (Man) Trace-intact H Urine Nitrate Negative Urine Bilirubin Negative Urine Urobilinogen 0.2 Leukocyte Esterase Rfl 1+ H Urine RBC 0-2 Urine WBC 4-6 H Ur Squamous Epith Cells Few Urine Bacteria Trace Ethyl Alcohol 221 Discharge Plan Discharge Attending physician on discharge: Ijeoma Goodson Discharging Clinician: Ijeoma Goodson Anticipated Discharge Date/Time: 07/13/24 12:32 Patient Disposition: Home Activity: as tolerated Diet: as tolerated and regular Patient Instructions: Antibiotic Form, Lorazepam (By mouth), Potassium Chloride (By mouth), Dehydration (DC), Urinary Tract Infection in Women (DC), Alcohol Intoxication (DC) Patient Language: [place] Stand Alone Forms: General Discharge Information Follow-up/Referrals: Yancy Guerrero MD [Primary Care Provider] - Call for Appointment (F/u with PCP in 3-5 days ) Discharge Medications: New potassium chloride [K-Tab] 20 mEq tablet extended release 20 meq PO DAILY Qty: 7 0RF Continued citalopram [Celexa] 20 mg tablet 40 mg PO DAILY lorazepam [Ativan] 0.5 mg tablet 0.5 mg PO PRN PRN (Reason: Anxiety) losartan [Cozaar] 25 mg tablet 50 mg PO DAILY trazodone 100 mg tablet 100 mg PO HS atorvastatin 40 mg tablet 80 mg PO DAILY metoprolol succinate 25 mg tablet extended release 24 hr 75 mg PO DAILY potassium chloride 10 mEq capsule, extended release 10 meq PO DAILY amlodipine 5 mg tablet 5 mg PO DAILY Date of admission: 07/12/24 23:11 Primary Care Provider: Yancy Guerrero Admitting Provider: Ijeoma Goodson Attending physician on admission: Ijeoma Goodson Condition: Stable
--- NOTE | 2024-07-13 14:25 | PC.NURSE ---
All discharge instructions and education reviewed with patient, patien states understanding. Calling family member to come pick her up. Denies any questions at this time.
--- NOTE | 2024-07-13 15:09 | PC.NURSE ---
Pt discharged to home with family. A/O x3, VSS. ISAIAS Lennon gave discharge instructions to pt who verbalized understanding.
--- OUTSIDE RECORDS SUMMARY | 2024-07-15 09:22 | XMS_ITS | Encounter Summary ---
Author Organization [facility] [employer] of [facility] Address [address] [place] [address] Phone Care Team Providers Care Analyst Name Role Phone Yancy Guerrero MD Primary Care Provider + [phone] Lupillo Reyes MD Unavailable [phone] Encounter Details Date Type Department Care Team (Late st Contact Info) Description 06/28/2024 Results Follow-Up [facility] - [facility] Urology [address] [facility] Advanced Medicine 11th [place] [address] [place] [address] Chelsea Haywood MD [address] [facility] [address] [place] [address] Urine culture Urine, bladder Social History Tobacco Use Types Packs/Day Years Used Date Smoking Tobacco: Every Day Cigarettes 0.2 2 Smokeless Tobacco: Never Comments:Two packs per week for last 2 years Alcohol Use Standard Drinks/Week Comments Yes 0 (1 standard drink = 0.6 oz pur e alcohol) socially [facility] Utilities Answer Date Recorded In the past 12 months has [employer], gas, oil, or water [employer] threatened to shut off services in your [...] often do you attend chur ch or orthodoxy services? 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 Gender Identity Not on file Sexual Orientation Not on file documented as of this encounter Plan of Treatment Upcoming Encounters Date Type Department Care Team (Late st Contact Info) Description 07/19/2024 12:00 PM CDT Hospital Encounter [facility] Operating Room [address] [place] [address] Rob Kline MD [address] [facility] [place] [address] 07/19/2024 12:00 PM CDT Anesthesia Event [facility] Operating Room [address] [place] [address] Nabila Martinez, YENI [address] [address] DR [place] [address] 07/19/2024 12:00 PM CDT - 07/19/2024 1:00 PM CDT Surgery [facility] Operating Room [address] [place] [address] Rob Kline MD [address] [facility] [place] [address] URETEROSCOPY Scheduled Procedures Name Priority Associated Diagnoses [...] documented as of this encounter Care Teams Analyst Relationship Specialty Start Date End Date Yancy Guerrero MD [address] [place] [address] PCP - General 05/22/16 Lupillo Reyes MD [address] [address] Consulting Physician Orthopedic Surgery 07/26/22 documented as of this encounter
--- OUTSIDE RECORDS SUMMARY | 2024-07-15 09:22 | XMS_ITS | Encounter Summary ---
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 Gender Identity Not on file Sexual Orientation Not on file documented as of this encounter Plan of Treatment Upcoming Encounters Date Type Department Care Team (Late st Contact Info) Description 07/19/2024 12:00 PM CDT Hospital Encounter [facility] Operating Room [address] [place] [address] Rob Kline MD [address] [place] [address] 07/19/2024 12:00 PM CDT Anesthesia Event [facility] Operating Room [address] [place] [address] Nabila Martinez NP [address] [place] [address] [place] [address] 07/19/2024 12:00 PM CDT - 07/19/2024 1:00 PM CDT Surgery [facility] Operating Room [address] [place] [address] Rob Kline MD [address] [facility] [place] [address] URETEROSCOPY Scheduled Procedures Name Priority Associated Diagnoses [...] documented as of this encounter Care Teams Green Building Materials Distributor Relationship Specialty Start Date End Date Yancy Guerrero MD [address] [place] [address] PCP - General 05/22/16 Lupillo Reyes MD [address] [address] Consulting Physician Orthopedic Surgery 07/26/22 documented as of this encounter
--- OUTSIDE RECORDS SUMMARY | 2024-07-15 09:22 | XMS_ITS | Encounter Summary ---
Author Organization [facility] of 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 Gender Identity Not on file Sexual Orientation Not on file documented as of this encounter Plan of Treatment Upcoming Encounters Date Type Department Care Team (Late st Contact Info) Description 07/19/2024 12:00 PM CDT Hospital Encounter [facility] Operating Room [address] [place] [address] Rob Kline MD [address] [place] [place] [address] 07/19/2024 12:00 PM CDT Anesthesia Event [facility] Operating Room [address] [place] [address] Nabila Martinez, YENI [address] [place] [address] [place] [address] 07/19/2024 12:00 PM CDT - 07/19/2024 1:00 PM CDT Surgery [facility] Operating Room [address] [place] [address] Rob Kline MD [address] [facility] [place] [address] URETEROSCOPY Scheduled Procedures Name Priority Associated Diagnoses [...] as of this encounter Care Teams Parts Clerk Relationship Specialty Start Date End Date Yancy Guerrero MD [address] [place] [address] PCP - General 05/22/16 Lupillo Reyes MD [address] [address] Consulting Physician Orthopedic Surgery 07/26/22 documented as of this encounter
--- OUTSIDE RECORDS SUMMARY | 2024-07-15 09:22 | XMS_ITS | Encounter Summary ---
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 Gender Identity Not on file Sexual Orientation Not on file documented as of this encounter Plan of Treatment Upcoming Encounters Date Type Department Care Team (Late st Contact Info) Description 07/19/2024 12:00 PM CDT Hospital Encounter [facility] Operating Room [address] [place] [address] Rob Kline MD [address] [place] [address] 07/19/2024 12:00 PM CDT Anesthesia Event [facility] Operating Room [address] [place] [address] Nabila Martinez NP [address] [place] [address] [place] [address] 07/19/2024 12:00 PM CDT - 07/19/2024 1:00 PM CDT Surgery [facility] Operating Room [address] [place] [address] Rob Kline MD [address] [facility] [place] [address] URETEROSCOPY Scheduled Procedures Name Priority Associated Diagnoses [...] as of this encounter Care Teams Gas Line Repairer Relationship Specialty Start Date End Date Yancy Guerrero MD [address] [place] [address] PCP - General 05/22/16 Lupillo Reyes MD [address] [address] Consulting Physician Orthopedic Surgery 07/26/22 documented as of this encounter
--- OUTSIDE RECORDS SUMMARY | 2024-07-15 09:22 | XMS_ITS | Encounter Summary ---
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 Operating Room [address] [place] [address] Rob Kline MD [address] [place] [address] 07/19/2024 12:00 PM CDT Anesthesia Event [facility] Operating Room [address] [place] [address] Nabila Martinez NP [address] [place] [address] [place] [address] 07/19/2024 12:00 PM CDT - 07/19/2024 1:00 PM CDT Surgery [facility] Operating Room [address] [place] [address] Rob Kline MD [address] [facility] [place] [address] URETEROSCOPY Scheduled Procedures Name Priority Associated Diagnoses [...] documented as of this encounter Care Teams White Hat Hacker Relationship Specialty Start Date End Date Yancy Guerrero MD [address] [place] [address] PCP - General 05/22/16 Lupillo Reyes MD [address] [address] Consulting Physician Orthopedic Surgery 07/26/22 documented as of this encounter
--- OUTSIDE RECORDS SUMMARY | 2024-07-15 09:22 | XMS_ITS | Encounter Summary ---
Author Organization [facility] [employer] 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 Gender Identity Not on file Sexual Orientation Not on file documented as of this encounter Plan of Treatment Upcoming Encounters Date Type Department Care Team (Late st Contact Info) Description 07/19/2024 12:00 PM CDT Hospital Encounter [facility] Operating Room [address] [place] [address] Rob Kline MD [address] [place] [address] 07/19/2024 12:00 PM CDT Anesthesia Event [facility] Operating Room [address] [place] [address] Nabila Martinez NP [address] [place] [address] [place] [address] 07/19/2024 12:00 PM CDT - 07/19/2024 1:00 PM CDT Surgery [facility] Operating Room [address] [place] [address] Rob Kline MD [address] [facility] [place] [address] URETEROSCOPY Scheduled Procedures Name Priority Associated Diagnoses [...] documented as of this encounter Care Teams Biofuels Production Associate Relationship Specialty Start Date End Date Yancy Guerrero MD [address] [place] [address] PCP - General 05/22/16 Lupillo Reyes MD [address] [address] Consulting Physician Orthopedic Surgery 07/26/22 documented as of this encounter
--- OUTSIDE RECORDS SUMMARY | 2024-07-15 09:22 | XMS_ITS | Continuity of Care Document ---
Author Organization [facility] Address [address] [facility] [address] [place] [address] Phone Care Team Providers Care Director Of Category Management Name Role Phone Lupillo Reyes MD Unavailable [...] Date Provider Providers Copied on Encounter [facility], [address], [id number], [place] [phone] [facility] No Information 4 Eric Wesley. [address] [address], [place], [place], [id number] , [place]. tel: [phone] [facility], [address], [id number], [place] tel:[phone] [facility] No Information 4 Eric Wesley. [address], [id number] , [place]. tel: [phone] Office/outpat ient visit,est, [facility], [address], [id number], [place] [phone] Rt Shoulder (chief complaint) Complete rotatr-cuff tear/ruptr of r shoulder, not trauma 4 Eric Wesley. [address], [id number] , [place]. tel: [phone] Office/outpat ient visit,est, [facility], [address], [id number], [place] tel:[phone] Right shoulder (chief complaint) Complete rotatr-cuff tear/ruptr of r shoulder, not trauma 3 Eric Wesley. [address] [facility], [address] [place] [address], [place], [place], [id number] , [place]. tel: [phone] Office/outpat ient visit,est, [facility], [address], [id number], [place] tel:[phone] Follow up (chief complaint) Complete rotatr-cuff tear/ruptr of r shoulder, not trauma 3 Eric Wesley. [address] [facility], [address] [place] [address], [place], [place], [id number] , [place]. tel: [phone] Office/outpat ient visit,est, [facility], [address] [address], [place], [place], [id number], [place] tel:[phone] [facility] Post op check up (chief complaint) Complete rotatr-cuff tear/ruptr of r shoulder, not trauma 3 Eric Wesley. [address] [facility], [place] [address], [place], [place], [id number] , [place]. tel: [phone] [facility], [address] [place] [address], [id number], [place] tel:[phone] [facility] Right shoulder (chief complaint) Complete rotatr-cuff tear/ruptr of r shoulder, not trauma 3 Eric Wesley. [address] [facility], [place] [address], [place], [place], [id number] , [place]. tel: [phone] [facility], [address], [id number], [place] tel:[phone] [facility] Right shoulder (chief complaint) Complete rotatr-cuff tear/ruptr of r shoulder, not trauma 3 Eric Wesley. [address] [facility], [address], [id number] , [place]. tel: [phone] [facility], [address] [place] [address], [id number], [place] tel:[phone] [facility] No Information 3 Eric Wesley. [address] [facility], [address] [place] [address], [place], [place], [id number] , [place]. tel: [phone] [facility], [address] [place] [address], [id number], [place] tel:[phone] [facility] Complete rotatr-cuff tear/ruptr of r shoulder, not trauma 3 Eric Wesley. [address] [facility], [address], [place], [place], [id number] , [place]. tel:[phone] Office consultation, moderate [facility], [address] [facility], [place], [place], [id number], [place] tel:[phone] [facility] Right shoulder muscle tear/pain (chief complaint) Complete rotatr-cuff tear/ruptr of r shoulder, not trauma 3 Eric Lupillo. [address] [facility], [address], [place], [place], [id number] , [place]. [phone] Referring Provider: Lupillo Mueller, [address] [facility] [address], [place], [address] . tel:[phone] Family History Family Member Type Diagnosis Age [...] tion(s) [facility] Workers Compensation Adm WC [id number] Social History Type Description Quantity Date [...]
--- OUTSIDE RECORDS SUMMARY | 2024-07-15 09:22 | XMS_ITS | Encounter Summary ---
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 Gender Identity Not on file Sexual Orientation Not on file documented as of this encounter Plan of Treatment Upcoming Encounters Date Type Department Care Team (Late st Contact Info) Description 07/19/2024 12:00 PM CDT Hospital Encounter [facility] Operating Room [address] [place] [address] Rob Kline MD [address] [place] [address] 07/19/2024 12:00 PM CDT Anesthesia Event [facility] Operating Room [address] [place] [address] Nabila Martinez, YENI [address] [place] [address] [place] [address] 07/19/2024 12:00 PM CDT - 07/19/2024 1:00 PM CDT Surgery [facility] Operating Room [address] [place] [address] Rob Kline MD [address] [facility] [place] [address] URETEROSCOPY Scheduled Procedures Name Priority Associated Diagnoses [...] documented as of this encounter Care Teams Char Filter Tank Tender Head Relationship Specialty Start Date End Date Yancy Guerrero MD [address] [place] [address] PCP - General 05/22/16 Lupillo Reyes MD [address] [address] Consulting Physician Orthopedic Surgery 07/26/22 documented as of this encounter
--- OUTSIDE RECORDS SUMMARY | 2024-07-15 09:23 | XMS_ITS | Clinical Summary ---
Author Organization [facility] Address [address] [place] [address] Care Team Providers Care Technical Aid Name Role Phone Yancy Guerrero MD Primary Care Provider + [phone] Lupillo Reyes MD Unavailable [phone] Allergies No known active allergies Medications citalopram [...] 03/21/2023 Assessment & Plan (03/23/2023 7:20 AM TUFTER HAND): Atenolol resumed with reasonable control Continue to hold Dyazide and losartan until outpatient follow-up HLD (hyperlipidemia) 03/21/2023 Assessment & Plan (03/22/2023 2:05 PM TUFTER HAND): Continue atorvastatin Transaminases have normalized. Depression with anxiety 03/21/2023 Assessment & Plan (03/23/2023 7:20 AM TUFTER HAND): Cont citalopram 40mg daily and lorazepam 0.5mg BID Resolved Problems Problem Noted Date Diagnosed Date Resolved Date Hypotension 03/21/2023 03/22/2023 Assessment & Plan (03/21/2023 8:09 PM TUFTER HAND): - Presenting with BP 80/50s in setting of reduced PO intake and ongoing BP meds - (+)orthostatics on presentation - Hold BP meds, check orthostatics in AM - Restart meds as needed Headache 03/21/2023 03/22/2023 Assessment & Plan (03/21/2023 8:10 PM TUFTER HAND): - Tylenol ordered; avoid NSAIDs Weakness 03/21/2023 03/23/2023 Assessment & Plan (03/22/2023 2:06 PM TUFTER HAND): TSH and B12 within acceptable limits. Monitor symptoms as blood pressure and renal function recover Nausea 03/21/2023 03/22/2023 Assessment & Plan (03/21/2023 8:10 PM TUFTER HAND): - Zofran ordered SUN (acute kidney injury) 03/21/2023 Assessment & Plan (03/23/2023 7:19 AM TUFTER HAND): Creatinine improved today Check renal function and electrolytes in outpatient follow-up Continue to hold Dyazide and losartan until outpatient follow-up. Abnormal transaminases 03/21/202303/22 Assessment & Plan (03/21/2023 8:11 PM TUFTER HAND): - Elevated in setting of recent viral infection and presumed hypovolemia - Trend in AM - if continues to be elevated consider hepatitis panel/HIV given occupation history Complete rupture of rotator cuff 07/13/2022 03/21/2023 Acute medial meniscus tear of left knee 06/25/2020 03/21/2023 Overview (06/25/2020): Added automatically from request for surgery [id number] Axillary mass, left 12/30/2016 03/21/19 24 Lipoma of forehead 11/23/2015 Pain in shoulder 11/12/2014 03/21/2023 Syncope 03/06/2013 03/21/2023 Encounters Date Type Department Care Team Description 07/11/2024 Telephone [facility] Surgery [address] [place] [address] Cassie Bee EMT 07/09/2024 2:00 PM CDT Pre-Admission Testing [facility] Pre Anesthesia Testing 6 [facility] [address], [address] [place] [address] 07/09/2024 Telephone [facility] Urology [address] [place] [address] [address] [place] [phone] Glenis Degroot LPN 07/09/2024 Telephone [facility] Surgery [address] [place] [phone] Armida Hughes, PURNIMA 07/01/2024 Orders Only [facility] Urology [address] [place] [address] [address] [place] [phone] Chelsea Haywood MD Urinary tract infection without hematuria, site unspecified (Primary Dx) 06/28/2024 Results Follow-Up [facility] Urology [address] [place] [address] 11th [place] [address] [place] [phone] Chelsea Haywood MD Urine culture Urine, bladder 06/28/2024 Telephone [facility]) [facility] Urology [address] [place] [address] 11th [place] [address] [place] [phone] Erica Moore B.A. 06/27/2024 Telephone [facility] Case Management [address] [place] [phone] Dulce Maria Benites RN 06/26/2024 Orders Only [facility] Care Services [address] [place] [phone] Laurie Tierney, [facility] 06/24/2024 Telephone [facility] Cardiology [address] [place] [address] [place] [address] Pat Calvo 06/24/2024 Documentation [facility] Urology [address] [facility] Medical Office Building [address] [place] [phone] Chelsea Haywood MD 2024 2:38 PM CDT Anesthesia Event [facility] Operating Room [address] [place] [phone] Jyothi Roque MD Jablonski, Melody A., NP 2024 2:02 PM CDT - 2024 3:07 PM CDT Surgery [facility] Operating Room [address] [place] [phone] Chelsea Haywood MD CYSTOSCOPY PLACEMENT URETERAL STENT 06/20/2024 10:10 PM CDT - 06/26/2024 6:14 PM CDT Hospital Encounter [facility] 1 [place] [address] Carlos Palomares MD Baiocco, Joseph, MD Mendelsohn, Marc, MD Sepsis without acute organ dysfunction, due to unspecified organism (HCC) (Primary Dx); Kidney stone; Bradycardia; Pyelonephritis of right kidney Discharge Disposition: Discharge to home, home health skilled care 06/20/2024 Hospital Encounter [facility] ADMIT [address] [place] [address] 06/17/2024 Telephone [facility] Orthopaedic Surgery [address] [place] [address] 2nd Floor [address] [place] [phone] Cheryl Trujillo RN WC Intake Form 06/04/2024 Telephone [facility] Orthopaedic Surgery [address] [facility] 2nd Floor [address] [place] [address] Cheryl Trujillo RN from Last [...] = 0.6 oz pur e alcohol) socially [employer] Answer Date Recorded In the past 12 months has [employer], gas, oil, or water [employer] threatened to shut off services in your [...] How often do you attend chur or christianity services? More than 4 times per year 06/02/2023 Do you belong to any clubs o r organizations such as sabianist groups, unions, fraternal or athletic groups, or [...] on file Legal 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 TUFTER HAND Gender Identity Not on file Sexual [...] Description 07/19/2024 12:00 PM CDT Hospital Encounter [facility] Operating Room [address] [place] [address] Rob Kline MD [address] [facility] [place] [address] 07/19/2024 12:00 PM CDT Anesthesia Event [facility] Operating Room [address] [place] [address] Nabila Martinez, YENI [address] [place] [address] [place] [address] 07/19/2024 12:00 PM CDT - 07/19/2024 1:00 PM CDT Surgery [facility] Operating Room [address] [place] [address] Rob Kline MD [address] [facility] [place] [address] URETEROSCOPY Scheduled Procedures Name Priority Associated Diagnoses [...] Completed 2024 Medical Devices Implanted Type Area Painter And Decorator Device Identifier Shelf Expiration Date Model / Serial / Lot [employer] Universa 6fr 24cm Radiopaque Graduate Firm Monofilament Tether [id number] - [id number] Implanted:Qty: 1 on 2024 by Chelsea Haywood MD at [facility] Stent Right: Ureter [employer] [id number] 12/28/2026 [id number] / / [id number] [employer] Corkscrew Tigertail 5.5mm 14.[address] Mechanism Vent 2 Square [id number] - [id number] Implanted:Qty: 1 on 07/26/2022 by Lupillo Reyes MD at [facility] Right: Shoulder [employer] 02/13/2024 AR-1927B CFT / / [id number] [employer] Corkscrew Tigertail 5.5mm 14.7[address] Drive Mechanism Vent 2 Square [id number] - [id number] Implanted:Qty: 1 on 07/26/2022 by Lupillo Reyes MD at [facility] Right: Shoulder [employer] 11/12/2024 AR-1927B CFT / / [id number] [employer] Swivelock C 4.75mm 19.1mm Closed Eyelet Vent Donald Suture Ar-2324bcc - [id number] Implanted:Qty: 1 on 07/26/2022 by Lupillo Reyes MD at [facility] Right: Shoulder [employer] 02/12/2026 AR-2324B CC / / [id number] Procedures Procedure Name Priority Date/Time Associated Diagnosis [...] CDT Kidney stone Case Notes Poc; Elian [phone] CYSTOSCOPY PLACEMENT URETERAL STENT 2024 2:43 PM CDT Kidney stone Case Notes Poc; Elian [phone] EGFR STAT 2024 1:07 PM CDT LACTATE [...] MD LAB BLOOD ORDERABLES Final Res ult [facility] One [facility] Department [place] [address] * (ABNORMAL) CBC without differential (06/25/2024 8:45 PM CDT) WBC 7.87 3.80 - 9.90 K/cumm Hgb 11.0(L) 11.9 - 15.5 g/dL [facility] Hct 32.9(L) 35.6 - 45.5 % [facility] Plt 385 150 - 400 K/cumm [facility] MPV 10.6 9.1 - 12.3 fL [facility] RBC 3.50(L) 3.90 - 5.20 M/cumm [facility] MCV 94.0 81.3 - 96.4 fL [facility] MCH 31.4 27.1 - 33.3 pg [facility] MCHC 33.4 32.3 - 35.7 g/dL [facility] RDW CV 14.4 11.1 - 14.9 % [facility] RDW SD 49.4(H) 35.7 - 48.1 fL [facility] NRBC abs 0.00 0.00 - 0.01 K/cumm [facility] Blood 06/25/2024 8:45 PM CDT 06/25/2024 9:59 PM CDT Braeden Alcantar MD LAB BLOOD ORDERABLES Final Res ult Performing Organization Address City/[facility]/ZIP Co de Phone Number [facility] Department [place] [address] * Phosphorus (06/25/2024 8:45 PM CDT) [facility] Phosphorus, pl 2.8 2.3 - 4.5 mg/dL Blood 06/25/2024 8:45 PM CDT 06/25/2024 9:43 PM CDT Braeden Alcantar MD LAB BLOOD ORDERABLES Final Res ult Performing Organization Address City/[facility] Co de Phone Number [facility] Department [place] [address] * Magnesium (06/25/2024 8:45 PM CDT) [facility] Magnesium 2.0 1.4 - 2.5 mg/dL Blood 06/25/2024 8:45 PM CDT 06/25/2024 9:43 PM CDT Braeden Alcantar MD LAB BLOOD ORDERABLES Final Res ult Performing Organization Address [facility] Co de Phone Number [facility] Department [place] [address] * Basic metabolic panel (06/25/2024 8:45 PM CDT) [facility] Sodium 139 135 - 145 mmol/L Potassium, pl 3.7 3.3 - 4.9 mmol/L [facility] Chloride 101 97 - 110 mmol/L [facility] CO2 30 22 - 32 mmol/L [facility] Anion gap 8 2 - 15 mmol/L [facility] BUN 11 6 - 25 mg/dL [facility] Creatinine 0.73 0.60 - 1.10 mg/dL [facility] Glucose 137 70 - 199 mg/dL [facility] Comment: Interpretive Data Fasting glucose >/= [...] Calcium 9.2 8.5 - 10.3 mg/dL [facility] Blood 06/25/2024 8:45 PM CDT 06/25/2024 9:43 PM CDT us Braeden Alcantar MD LAB BLOOD ORDERABLES Final Res ult [facility] One [facility] Department [place] [address] * eGFR (06/24/2024 9:08 PM CDT) eGFR [...] MD LAB BLOOD ORDERABLES Final Res ult [facility] [place] [address] * (ABNORMAL) CBC without differential (06/24/2024 9:08 PM CDT) Pathologist [facility] WBC 8.12 3.80 - 9.90 K/cumm Hgb 10.9(L) 11.9 - 15.5 g/dL [facility] Hct 31.5(L) 35.6 - 45.5 % [facility] Plt 291 150 - 400 K/cumm [facility] MPV 11.0 9.1 - 12.3 fL [facility] RBC 3.43(L) 3.90 - 5.20 M/cumm [facility] MCV 91.8 81.3 - 96.4 fL [facility] MCH 31.8 27.1 - 33.3 pg [facility] MCHC 34.6 32.3 - 35.7 g/dL [facility] RDW CV 14.1 11.1 - 14.9 % [facility] RDW SD 47.6 35.7 - 48.1 fL [facility] NRBC abs 0.00 0.00 - 0.01 K/cumm [facility] Blood 06/24/2024 9:08 PM CDT 06/24/2024 10:07 PM CDT us Braeden Alcantar MD LAB BLOOD ORDERABLES Final Res ult [facility] [place] [address] * Phosphorus (06/24/2024 9:08 PM CDT) Pathologist [facility] Phosphorus, pl 2.9 2.3 - 4.5 mg/dL Blood 06/24/2024 9:08 PM CDT 06/24/2024 9:47 PM CDT Braeden Alcantar MD LAB BLOOD ORDERABLES Final Res ult [facility] One [facility] [place] [address] * Magnesium (06/24/2024 9:08 PM CDT) Pathologist [facility] Magnesium 1.8 1.4 - 2.5 mg/dL Blood 06/24/2024 9:08 PM CDT 06/24/2024 9:47 PM CDT Braeden Alcantar MD LAB BLOOD ORDERABLES Final Res ult Performing Organization Address [facility] Co de Phone Number [facility] [place] [address] * Basic metabolic panel (06/24/2024 9:08 PM CDT) [facility] Sodium 141 135 - 145 mmol/L Potassium, pl 3.6 3.3 - 4.9 mmol/L [facility] Chloride 103 97 - 110 mmol/L [facility] CO2 30 22 - 32 mmol/L [facility] Anion gap 8 2 - 15 mmol/L [facility] BUN 8 6 - 25 mg/dL [facility] Creatinine 0.67 0.60 - 1.10 mg/dL [facility] Glucose 155 70 - 199 mg/dL [facility] Comment: Interpretive Data Fasting glucose >/= [...] 2022. Calcium 8.8 8.5 - 10.3 mg/dL [facility] Blood 06/24/2024 9:08 PM CDT 06/24/2024 9:47 PM CDT us Braeden Alcantar MD LAB BLOOD ORDERABLES Final Res ult [facility] One [facility] Department [place] [address] * TRANSTHORACIC ECHO (TTE) COMPLETE W DOPPLER/CF W CONTRAST (06/24/2024 2:47 PM CDT) Estimated EF 55-60 % CONS SCIMAGE EF Mod BP 68 % CONS SCIMAGE Anatomical Region Laterality Modality Ultrasound 06/24/2024 1:39 PM CDT Narrative 06/24/2024 3:12 PM CDT [facility] Cardiac [place] [address] Transthoracic Echocardiographic Report Patient Name: JULI KOO J : 1960 (64y ) Gender: F Study Date: 06/24/2024 01:39:40 PM Ht(Inch): 65 Wt(Lb): 201.06 BSA: 2.05 Campaign Analyst: Renita Rosado RDCS Location: [id number] Order Provider: DONNY CARRANZA BMI: 33.45 BP: [...] Note Slava Carrion MD PhD - 06/24/2024 [facility] [place]iac [place] [address] Transthoracic Echocardiographic Report Patient Name: JULI KOO J : 1960 (64y ) Gender: F Study Date: 06/24/2024 01:39:40 PM Ht(Inch): 65 Wt(Lb): 201.06 BSA: 2.05 Campaign Analyst: Renita Rosado RDCS Location: [id number] Order Provider:DONNY CARRANZA BMI: 33.45 BP: 123 [...] LAB BLOOD ORDERABLES Final Res ult [facility] One [facility] Department [place] [address] * (ABNORMAL) CBC without differential (06/23/2024 9:45 PM CDT) WBC 7.48 3.80 - 9.90 K/cumm Hgb 10.6(L) 11.9 - 15.5 g/dL [facility] Hct 30.7(L) 35.6 - 45.5 % [facility] Plt 223 150 - 400 K/cumm [facility] MPV 10.9 9.1 - 12.3 fL [facility] RBC 3.32(L) 3.90 - 5.20 M/cumm [facility] MCV 92.5 81.3 - 96.4 fL [facility] MCH 31.9 27.1 - 33.3 pg [facility] MCHC 34.5 32.3 - 35.7 g/dL [facility] RDW CV 14.1 11.1 - 14.9 % [facility] RDW SD 47.7 35.7 - 48.1 fL [facility] NRBC abs 0.00 0.00 - 0.01 K/cumm [facility] Blood 06/23/2024 9:45 PM CDT 06/23/2024 10:21 PM CDT Braeden Alcantar MD LAB BLOOD ORDERABLES Final Res ult Performing Organization Address City/[facility]/ZIP Co de Phone Number [facility] Department of [employer] [place] [address] * Phosphorus (06/23/2024 9:45 PM CDT) [facility] Phosphorus, pl 2.9 2.3 - 4.5 mg/dL Blood 06/23/2024 9:45 PM CDT 06/23/2024 10:22 PM CDT Braeden Alcantar MD LAB BLOOD ORDERABLES Final Res ult [facility] [place] [address] * Magnesium (06/23/2024 9:45 PM CDT) [facility] Magnesium 1.5 1.4 - 2.5 mg/dL Blood 06/23/2024 9:45 PM CDT 06/23/2024 10:22 PM CDT Braeden Alcantar MD LAB BLOOD ORDERABLES Final Res ult Performing Organization Address City/[facility] Co de Phone Number [facility] Department of [employer] [place] [address] * (ABNORMAL) Basic metabolic panel (06/23/2024 9:45 PM CDT) Pathologist [facility] Sodium 138 135 - 145 mmol/L Potassium, pl 2.8(L) 3.3 - 4.9 mmol/L [facility] Chloride 105 97 - 110 mmol/L [facility] CO2 25 22 - 32 mmol/L [facility] Anion gap 8 2 - 15 mmol/L [facility] BUN 8 6 - 25 mg/dL [facility] Creatinine 0.82 0.60 - 1.10 mg/dL [facility] Glucose 91 70 - 199 mg/dL [facility] Comment: Interpretive Data Fasting glucose >/= [...] 2022. Calcium 8.4(L) 8.5 - 10.3 mg/dL [facility] Blood 06/23/2024 9:45 PM CDT 06/23/2024 10:22 PM CDT Braeden Alcantar MD LAB BLOOD ORDERABLES Final Res ult Performing Organization Address [facility] Co de Phone Number [facility] Department [place] [address] * Critical Care (06/23/2024 9:12 AM CDT) Narrative Kecia Troy MD - 06/23/2024 9:12 AM CDT Kecia Troy MD 06/23/2024 4:13 PM Critical Care Performed by: Donny Carranza NP Authorized by: Donny Carranza NP CRITICAL CARE: Team: GENEVA Shift: AM Level of Billing: Subsequent Hospital [...] plan with the patient's team and other medical/events solutions consultant staff. This time was in addition to and separate from care provided by other practitioners on this day of service. I spent time reviewing and interpreting data from bedside monitors, laboratory results, and imaging, I spent time discussing the management of this critically ill patient with consultants and the medical staff and I spent time documenting in the medical record Donny Carranza CUT IN WORKER IN CLINIC/BEDSIDE JOSE MARR Final Result * [...] MD LAB BLOOD ORDERABLES Final Res ult [facility] of [employer] [place] [address] * (ABNORMAL) CBC without differential (06/22/2024 7:55 PM CDT) WBC 7.81 3.80 - 9.90 K/cumm Hgb 11.1(L) 11.9 - 15.5 g/dL [facility] Hct 33.1(L) 35.6 - 45.5 % [facility] Plt 180 150 - 400 K/cumm [facility] MPV 11.1 9.1 - 12.3 fL [facility] RBC 3.51(L) 3.90 - 5.20 M/cumm [facility] MCV 94.3 81.3 - 96.4 fL [facility] MCH 31.6 27.1 - 33.3 pg [facility] MCHC 33.5 32.3 - 35.7 g/dL [facility] RDW CV 14.3 11.1 - 14.9 % [facility] RDW SD 48.6(H) 35.7 - 48.1 fL [facility] NRBC abs 0.00 0.00 - 0.01 K/cumm [facility] Blood 06/22/2024 7:55 PM CDT 06/22/2024 9:23 PM CDT Braeden Alcantar MD LAB BLOOD ORDERABLES Final Res ult [facility] [employer] [place] [address] * (ABNORMAL) Phosphorus (06/22/2024 7:55 PM CDT) [facility] Phosphorus, pl 2.2(L) 2.3 - 4.5 mg/dL Blood 06/22/2024 7:55 PM CDT 06/22/2024 8:52 PM CDT Braeden Alcantar MD LAB BLOOD ORDERABLES Final Res ult Performing Organization Address [facility] Co de Phone Number [facility] Department [place] [address] * Magnesium (06/22/2024 7:55 PM CDT) [facility] Magnesium 2.1 1.4 - 2.5 mg/dL Blood 06/22/2024 7:55 PM CDT 06/22/2024 8:52 PM CDT Braeden Alcantar MD LAB BLOOD ORDERABLES Final Res ult Performing Organization Address [facility] de Phone Number [facility] Department [place] [address] * (ABNORMAL) Basic metabolic panel (06/22/2024 7:55 PM CDT) [facility] Sodium 136 135 - 145 mmol/L Potassium, pl 4.1 3.3 - 4.9 mmol/L [facility] Chloride 106 97 - 110 mmol/L [facility] CO2 20(L) 22 - 32 mmol/L [facility] Anion gap 10 2 - 15 mmol/L [facility] BUN 15 6 - 25 mg/dL [facility] Creatinine 0.82 0.60 - 1.10 mg/dL [facility] Glucose 146 70 - 199 mg/dL [facility] Comment: Interpretive Data Fasting glucose >/= [...] 2022. Calcium 8.7 8.5 - 10.3 mg/dL [facility] Blood 06/22/2024 7:55 PM CDT 06/22/2024 8:52 PM CDT us Braeden Alcantar MD LAB BLOOD ORDERABLES Final Res ult [facility] One [facility] Department [place] [address] * Critical Care (06/22/2024 6:39 PM CDT) Narrative Benjy Godinez MD PhD - 06/22/2024 6:39 PM CDT Benjy Godinez MD PhD 06/23/2024 9:03 PM Critical Care Performed by: Asmita Sarabia NP Authorized by: Asmita Sarabia NP CRITICAL CARE: Team: GENEVA Shift: PM Level of Billing: Subsequent Hospital [...] plan with the patient's team and other medical/events solutions consultant staff. This time was in addition to and separate from care provided by other practitioners on this day of service. I spent time reviewing and interpreting data from bedside monitors, laboratory results, and imaging and I spent time documenting in the medical record us Asmita Sarabia CUT IN WORKER IN CLINIC/BEDSIDE O RDERABLES Final Result * [...] plan with the patient's team and other medical/events solutions consultant staff. This time was in addition [...] in the medical record us Donny Carranza CUT IN WORKER IN CLINIC/BEDSIDE JOSE MARR Final Result * (ABNORMAL) Vancomycin level trough Draw prior to giving vancomycin dose (06/22/2024 5:01 AM CDT) Pathologist [facility] Vancomycin trough 6.8(L) 10.0 - 20.0 mcg/mL Blood 06/22/2024 5:01 AM CDT 06/22/2024 5:14 AM CDT Narrative [facility] - 06/22/2024 6:29 AM CDT Draw prior to giving vancomycin dose us Lyla Jenkins NP LAB BLOOD ORDERABLES Final Res ult [facility] One [facility] Department [place] [address] * ECG 12 lead (2024 10:48 PM CDT) Ventricular Rate EKG/Min 56 BPM [facility] Atrial Rate 56 BPM [facility] [place]-Interval (MSEC) 148 ms [facility] QRS-Interval (MSEC) 84 ms [facility] QT-Interval (MSEC) 530 ms [facility] QTc 511 ms [facility] P [place] 42 degrees [facility] R [place] -13 degrees [facility] T [place] 23 degrees [facility] Diagnosis Sinus bradycardia Prolonged QT Abnormal ECG Confirmed by Abdelrahman Chowdhury MD ([id number]) on 06/24/2024 6:54:15 PM [facility] 2024 10:4 8 PM CDT 06/24/2024 6:54 PM CDT Braeden Alcantar MD ECG ORDERABLES Final Result Performing Organization Address City/State/[facility] Co de Phone Number [facility] * (ABNORMAL) POC Blood Gas and Chemistries, Arterial - (2024 9:59 PM CDT) pH, Art POC 7.34(L) 7.35 - 7.45 pCO2, Art POC 33(L) 35 - 45 mmHg [facility] pO2, Art POC 83 83 - 108 mmHg [facility] Na, POC 135 135 - 145 mmol/L [facility] POC 3.7 3.3 - 4.9 mmol/L [facility] Comment: Interpretive Data Not all point of care methods assess for hemolysis. Confirm with instrument and retest K+ if not consistent with clinical signs and symptoms. Current Interpretive Data was last revised on 2023. Cl, POC 109 97 - 110 mmol/L [facility] Ionized Ca, POC 5.02 4.50 - 5.10 mg/dL [facility] Glucose, POC 155 70 - 199 mg/dL [facility] Lactate POC 0.6(L) 0.7 - 2.0 mmol/L [facility] SO2 (chay) arterial 98(H) 90 - 95 % [facility] Base excess, POC -7.1 mmol/L [facility] HCO3, Art POC 18(L) 20 - 30 mmol/L [facility] Hct, POC 32.0(L) 36.3 - 45.3 % [facility] Total Hb, POC 10.6(L) 11.9 - 15.5 g/dL [facility] Blood 2024 9:59 PM CDT 2024 9:59 PM CDT Braeden Alcantar MD LAB POCT ORDERABLES - DEVICE F inal Result [facility] Department [place] [address] * XR Abdomen Ap 1 Vw (2024 [...] CDT Devon [facility] LAB MICROBIOLOGY - [facility] AL ORDERABLES [place] [address] * Hepatitis C antibody Blood (2024 5:02 PM CDT) Pathologist [facility] Hep C Ab Nonreactive Nonreactive Comment:Antibodies to HCV no t detected. Does NOT exclude the possibility of recent exposure to HCV. Current interpretive data was last revised on 21 Blood 2024 5:02 PM CDT 2024 5:30 PM CDT us Devon [facility] LAB MICROBIOLOGY - GENER AL ORDERABLES Final Result Performing Organization Address [facility] [place] [address] * RPR Blood (2024 5:02 PM CDT) [facility] RPR Nonreactive Nonreactive Blood 2024 5:02 PM CDT 2024 5:30 PM CDT us Devon [facility] LAB MICROBIOLOGY - GENER AL ORDERABLES Final Result Performing Organization Address City/[facility] Co de Phone Number [facility] [employer] [place] [address] * Hepatitis B Surface Antigen Blood (2024 5:02 PM CDT) [facility] HepBsAg Nonreactive Nonreactive Blood 2024 5:02 PM CDT 2024 5:30 PM CDT us Devon [facility] LAB MICROBIOLOGY - GENER AL ORDERABLES Final Result Performing Organization Address City/[facility] Co de Phone Number [facility] [place] [address] * Lactate (2024 5:00 PM CDT) Lactate 0.7 0.7 - 2.0 mmol/L Blood 2024 5:00 PM CDT 2024 5:31 PM CDT Braeden Alcantar MD LAB BLOOD ORDERABLES Final Res ult Performing Organization Address City/[facility]/ZIP Co de Phone Number [facility] [employer] [place] [address] * (ABNORMAL) eGFR (2024 5:00 PM CDT) [...] ORDERABLES Final Res ult Performing Organization Address City/[facility]/ZIP Co de Phone Number [facility] Department of [employer] [place] [address] * (ABNORMAL) Calcium, ionized (2024 5:00 PM CDT) [facility] Calcium, Ionized 4.43(L) 4.50 - 5.10 mg/dL Blood 2024 5:00 PM CDT 2024 5:37 PM CDT Braeden Alcantar MD LAB BLOOD ORDERABLES Final Res ult Performing Organization Address City/[facility]/ZIP Co de Phone Number [facility] [employer] [address] * (ABNORMAL) CBC without differential (2024 5:00 PM CDT) [facility] WBC 7.37 3.80 - 9.90 K/cumm Hgb 10.2(L) 11.9 - 15.5 g/dL [facility] Hct 29.8(L) 35.6 - 45.5 % [facility] Plt 152 150 - 400 K/cumm [facility] MPV 10.9 9.1 - 12.3 fL [facility] RBC 3.20(L) 3.90 - 5.20 M/cumm [facility] MCV 93.1 81.3 - 96.4 fL [facility] MCH 31.9 27.1 - 33.3 pg [facility] MCHC 34.2 32.3 - 35.7 g/dL [facility] RDW CV 14.2 11.1 - 14.9 % [facility] RDW SD 49.1(H) 35.7 - 48.1 fL [facility] NRBC abs 0.00 0.00 - 0.01 K/cumm [facility] Blood 2024 5:00 PM CDT 2024 5:30 PM CDT Braeden Alcantar MD LAB BLOOD ORDERABLES Final Res ult [facility] [employer] [address] * Phosphorus (2024 5:00 PM CDT) Pathologist [facility] Phosphorus, pl 2.6 2.3 - 4.5 mg/dL Blood 2024 5:00 PM CDT 2024 5:37 PM CDT Braeden Alcantar MD LAB BLOOD ORDERABLES Final Res ult Performing Organization Address [facility] de Phone Number [facility] Department [place] [address] * Magnesium (2024 5:00 PM CDT) [facility] Magnesium 1.7 1.4 - 2.5 mg/dL Blood 2024 5:00 PM CDT 2024 5:37 PM CDT Braeden Alcantar MD LAB BLOOD ORDERABLES Final Res ult Performing Organization Address [facility] de Phone Number [facility] [place] [address] * (ABNORMAL) Blood gas, arterial (2024 5:00 PM CDT) Pathologist [facility] pH, Art 7.36 7.35 - 7.45 PCO2, Arterial 34(L) 35 - 45 mmHg [facility] PO2, Arterial 125(H) 83 - 108 mmHg [facility] HCO3 Art (Calculated) 20 20 - 30 mmol/L [facility] BE, art -6 mmol/L [facility] Comment: Interpretive Data No Reference Range Established Current Interpretive Data was last revised on 2017 O2 Sat Art (Measured) 98(H) 90 - 95 % [facility] Blood 2024 5:00 PM CDT 2024 5:22 PM CDT Braeden Alcantar MD LAB BLOOD ORDERABLES Final Res ult [facility] Department [place] [address] * (ABNORMAL) Basic metabolic panel (2024 5:00 PM CDT) Pathologist [facility] Sodium 142 135 - 145 mmol/L Potassium, pl 3.1(L) 3.3 - 4.9 mmol/L [facility] Chloride 107 97 - 110 mmol/L [facility] CO2 23 22 - 32 mmol/L [facility] Anion gap 12 2 - 15 mmol/L [facility] BUN 15 6 - 25 mg/dL [facility] Creatinine 1.12(H) 0.60 - 1.10 mg/dL [facility] Glucose 126 70 - 199 mg/dL [facility] Comment: Interpretive Data Fasting glucose >/= [...] 2022. Calcium 8.1(L) 8.5 - 10.3 mg/dL [facility] Blood 2024 5:00 PM CDT 2024 5:37 PM CDT us Braeden Alcantar MD LAB BLOOD ORDERABLES Final Res ult [facility] Department [place] [address] * ECG 12 lead (2024 4:29 PM CDT) Ventricular Rate EKG/Min 63 BPM [facility] Atrial Rate 63 BPM [facility] [place]-Interval (MSEC) 144 ms [facility] QRS-Interval (MSEC) 86 ms [facility] QT-Interval (MSEC) 498 ms [facility] QTc 509 ms [facility] P [place] 17 degrees [facility] R [place] -22 degrees [facility] T [place] 12 degrees [facility] Diagnosis Normal sinus rhythm Minimal voltage criteria for LVH, may be normal variant Prolonged QT Abnormal ECG Confirmed by Abdelrahman Chowdhury MD ([id number]) on 06/24/2024 6:57:56 PM [facility] 2024 4:29 PM CDT 06/24/2024 6:57 PM CDT us Braeden Alcantar MD ECG ORDERABLES Final Result [facility] * (ABNORMAL) POC Blood Gas and Chemistries, Arterial - (2024 3:47 PM CDT) pH, Art POC 7.42 7.35 - 7.45 pCO2, Art POC 31(L) 35 - 45 mmHg [facility] pO2, Art POC 158(H) 83 - 108 mmHg [facility] Na, POC 139 135 - 145 mmol/L [facility] K POC 2.9(L) 3.3 - 4.9 mmol/L [facility] Comment: Interpretive Data Not all point of care methods assess for hemolysis. Confirm with instrument and retest K+ if not consistent with clinical signs and symptoms. Current Interpretive Data was last revised on 2023. Cl, POC 112(H) 97 - 110 mmol/L [facility] Ionized Ca, POC 4.44(L) 4.50 - 5.10 mg/dL [facility] Glucose, POC 116 70 - 199 mg/dL [facility] Lactate POC 1.2 0.7 - 2.0 mmol/L [facility] SO2 (chay) arterial 100(H) 90 - 95 % [facility] Base excess, POC -3.6 mmol/L [facility] HCO3, Art POC 20 20 - 30 mmol/L [facility] Hct, POC 31.0(L) 36.3 - 45.3 % [facility] Total Hb, POC 10.3(L) 11.9 - 15.5 g/dL [facility] Blood 2024 3:47 PM CDT 2024 3:47 PM CDT Braeden Alcantar MD LAB POCT ORDERABLES - DEVICE F inal Result Performing Organization Address City/[facility]/ZIP Co de Phone Number [facility] Department [place] [address] * FL Fluoroscopy < 1 Hour (2024 3:20 PM CDT) Narrative [facility] - 2024 3:20 PM CDT The images from this study are not interpreted by Radiology. Please refer to the physician's procedure / OR operative note. Chelsea Haywood MD IMG FLUOROSCOPY PROCEDURES Fin al Result Performing Organization Address [facility] Co de Phone Number [facility] * (ABNORMAL) Urine culture Urine, bladder (2024 [...] (clinically insignificant growth. (.) Organism ESCHERICHIA COLI [facility] Urine, bladder 2024 3: 20 PM CDT 2024 5:31 PM CDT Narrative [facility] - 06/27/2024 10:28 AM CDT URINE CULTURE Indications for Culture:->Urology patient Testing performed by [facility] ([phone]) Organism Antibiotic Method Susceptibility Escherichia coli Ampicillin [...] Edited Result - Final Performing Organization Address City/[facility]/ZIP Co de Phone Number [facility] [employer] [place] [address] * Lactate (2024 1:07 PM CDT) Pathologist [facility] Lactate 0.8 0.7 - 2.0 mmol/L Blood 2024 1:07 PM CDT 2024 1:40 PM CDT us Lyla Jenkins NP LAB BLOOD ORDERABLES Final Res ult Performing Organization Address [facility] Co de Phone Number [facility] Department of [employer] [place] [address] * (ABNORMAL) eGFR (2024 1:07 PM CDT) [...] 2024 2:06 PM CDT us Lyla Jenkins CUT IN WORKER LAB BLOOD ORDERABLES Final Res ult Performing Organization Address City/[facility]/ZIP Co de Phone Number [facility] Department [place] [address] * (ABNORMAL) CBC without differential (2024 1:07 PM CDT) WBC 7.70 3.80 - 9.90 K/cumm Hgb 10.6(L) 11.9 - 15.5 g/dL [facility] Hct 30.6(L) 35.6 - 45.5 % [facility] Plt 161 150 - 400 K/cumm [facility] MPV 11.0 9.1 - 12.3 fL [facility] RBC 3.31(L) 3.90 - 5.20 M/cumm [facility] MCV 92.4 81.3 - 96.4 fL [facility] MCH 32.0 27.1 - 33.3 pg [facility] MCHC 34.6 32.3 - 35.7 g/dL [facility] RDW CV 14.3 11.1 - 14.9 % [facility] RDW SD 49.0(H) 35.7 - 48.1 fL [facility] NRBC abs 0.00 0.00 - 0.01 K/cumm [facility] Blood 2024 1:07 PM CDT 2024 2:06 PM CDT us Lyla Jenkins NP LAB BLOOD ORDERABLES Final Res ult Performing Organization Address City/[facility]/ZIP Co de Phone Number [facility] [place] [address] * (ABNORMAL) Basic metabolic panel (2024 1:07 PM CDT) Sodium 139 135 - 145 mmol/L Potassium, pl 3.3 3.3 - 4.9 mmol/L [facility] Chloride 108 97 - 110 mmol/L [facility] CO2 21(L) 22 - 32 mmol/L [facility] Anion gap 10 2 - 15 mmol/L [facility] BUN 16 6 - 25 mg/dL [facility] Creatinine 1.21(H) 0.60 - 1.10 mg/dL [facility] Glucose 100 70 - 199 mg/dL [facility] Comment: Interpretive Data Fasting glucose >/= [...] 2022. Calcium 7.8(L) 8.5 - 10.3 mg/dL [facility] Blood 2024 1:07 PM CDT 2024 2:06 PM CDT us Lyla Jenkins NP LAB BLOOD ORDERABLES Final Res ult [facility] Eileen [facility] Department [place] [address] * Urine culture Urine, clean voided (2024 8:45 AM CDT) Pathologist [facility] Report Final Report: Less than 100,000 colonies/mL (clinically insignificant growth based on current clinical standards) Organism (CLINICALLY INSIGNIFICANT GROWTH [facility] Urine, clean voided 2024 8:45 AM CDT 2024 9:43 AM CDT Narrative [facility] - 06/22/2024 12:09 PM CDT Indications for Culture:->Recent positive UA Testing performed by [facility] ([phone]) Braeden Alcantar MD LAB MICROBIOLOGY - GENERAL ORD ERABLES Final Result [facility] Department [place] [address] * (ABNORMAL) Urinalysis reflex to microscopic (2024 8:32 AM CDT) Color, ur Yellow Yellow Clarity, ur Turbid(A) Clear [facility] Specific gravity, ur 1.017 1.003 - 1.030 [facility] pH, urine 6.0 [facility] Comment: Interpretive Data U rine pH is affected by diet, medications, systemic acid-base disturbances, and renal tubular function. pH may affect urinary stone formation. For example, urine pH below 6.0 may help reduce the tendency for calcium phosphate stones and pH greater than 6.0 may reduce the tendency for uric acid stone formation. Source: [facility] Current Interpretive Data was last revised on 2017 Protein, ur ql 2+(A) Negative [facility] Glucose, ur ql Negative Negative [facility] Ketones, ur 1+(A) Negative [facility] Bilirubin, ur Negative Negative [facility] Blood, ur 1+(A) Negative [facility] Urobilinogen, ur <2.0 <2.0 mg/dL [facility] Nitrite, ur Positive(A) Negative [facility] Leukocyte esterase, ur 3+(A) Negative [facility] UA reflex comment Reflex to microscopic UA will be performed. [facility] Urine 2024 8:32 AM CDT 2024 9:19 AM CDT Braeden Alcantar MD LAB URINE ORDERABLES Final Res ult Performing Organization Address City/[facility]/ZIP Co de Phone Number [facility] [place] [address] * (ABNORMAL) Urinalysis, microscopic only (2024 8:32 AM CDT) WBC, ur >50(A) 0 - 5 /HPF RBC, ur 6-10(A) 0 - 2 /HPF [facility] Epithelial cells, squamous, ur 1-5 0 - 5 /HPF [facility] Bacteria, ur 4+(A) [facility] Urine 2024 8:32 AM CDT 2024 9:19 AM CDT Braeden Alcantar MD LAB URINE ORDERABLES Final Res ult Performing Organization Address [facility] Co de Phone Number [facility] [place] [address] * [place] Kidney Complete (2024 12:33 AM [...] by: Yojana Perez M.D. Miko Edwards MD [facility] US PROCEDURES Final Result * Check Sample (06/20/2024 11:13 PM CDT) ABO Rh A Negative [facility] OTHER 06/20/2024 11:1 3 PM CDT 06/20/2024 11:45 PM CDT us Carlos Palomares MD LAB BLOOD ORDERABLES Shanell l Result [facility] Department [place] [address] [facility] * XR Chest 1 Vw Portable (06/20/2024 [...] images may or may not represent the [place] source data set and thus may contain [...] IMAGING STUDY STUDY INITIALLY PERFORMED: 06/20/2024 at [facility]. TYPE OF STUDY: Multiple CT images of [...] IMAGING STUDY STUDY INITIALLY PERFORMED: 06/20/2024 at [facility]. TYPE OF STUDY: Multiple CT images of [...] images may or may not represent the [place] source data set and thus may contain [...] only and have not been reviewed by [facility] Radiology. There will be no report generated by a [facility] Radiologist. Narrative [facility] - 06/20/2024 10:49 PM CDT EXAMINATION: Images For Reference Purposes Only Marc Grijalva MD IM CT PROCEDURES Final Result [facility] * ECG 12-LEAD (06/20/2024 10:46 PM CDT) Narrative [facility] - 06/20/2024 10:46 PM CDT Carlos [...] evidence of acuteischemia. Carlos Palomares MD 06/20/24 [id number] Miko Edwards MD ECG ORDERABLES Final R esult Performing Organization Address City/[facility]/ZIP Co de Phone Number [facility] * Sepsis Lactate w/ Reflex (06/20/2024 10:38 PM CDT) [facility] Sepsis Lactate 1.1 0.7 - 2.0 mmol/L Blood 06/20/2024 10:3 8 PM CDT 06/20/2024 10:42 PM CDT Carlos Palomares MD LAB BLOOD ORDERABLES Shanell l Result Performing Organization Address [facility] Co de Phone Number [facility] Department [place] [address] * POCT glucose (06/20/2024 10:27 PM CDT) [facility] Glucose, POC 162 70 - 199 mg/dL Blood 06/20/2024 10:2 7 PM CDT 06/20/2024 10:27 PM CDT Carlos Palomares MD LAB POCT ORDERABLES - DEV ICE Final Result Performing Organization Address [facility] de Phone Number [facility] Department [place] [address] * (ABNORMAL) eGFR (06/20/2024 10:24 PM CDT) [facility] eGFR 37(L) >=60 mL/min/1. 73 m2 [...] MD LAB BLOOD ORDERABLES Fi nal Result [facility] Department [place] [address] * (ABNORMAL) Differential, auto (06/20/2024 10:24 PM CDT) Neutrophil abs 8.00(H) 1.50 - 6.50 K/cumm Imm gran abs 0.12(H) 0.00 - 0.10 K/cumm [facility] Lymphocyte abs 1.11 0.80 - 3.30 K/cumm [facility] Monocyte abs 1.06(H) 0.20 - 0.80 K/cumm [facility] Eosinophil abs 0.00 0.00 - 0.50 K/cumm [facility] Basophil abs 0.04 0.00 - 0.10 K/cumm [facility] Neutrophil pct 77.4 % [facility] Comment: Interpretive Data Percent cell count reference ranges are not reported, since discordance with absolute values may lead to misinterpretation of CBC data. Current Interpretive Data was last revised on 2017. Imm gran pct 1.2 % [facility] Comment: Interpretive Data Percent cell count reference ranges are not reported, since discordance with absolute values may lead to misinterpretation of CBC data. Current Interpretive Data was last revised on 2017. Lymphocyte pct 10.7 % [facility] Comment: Interpretive Data Percent cell count reference ranges are not reported, since discordance with absolute values may lead to misinterpretation of CBC data. Current Interpretive Data was last revised on 2017. Monocyte pct 10.3 % [facility] Comment: Interpretive Data Percent cell count reference ranges are not reported, since discordance with absolute values may lead to misinterpretation of CBC data. Current Interpretive Data was last revised on 2017. Eosinophil pct 0.0 % [facility] Comment: Interpretive Data Percent cell count reference ranges are not reported, since discordance with absolute values may lead to misinterpretation of CBC data. Current Interpretive Data was last revised on 2017. Basophil pct 0.4 % [facility] Comment: Interpretive Data Percent cell count reference ranges are not reported, since discordance with absolute values may lead to misinterpretation of CBC data. Current Interpretive Data was last revised on 2017. Blood 06/20/2024 10:2 4 PM CDT 06/20/2024 10:35 PM CDT Miko Edwards MD LAB BLOOD ORDERABLES nal Result [facility] Department [place] [address] * Respiratory pathogen panel Nasopharyngeal (06/20/2024 10:24 PM CDT) Pathologist [facility] Influenza A RNA Not Detected Not Detected Influenza B RNA Not Detected Not Detected [facility] RSV RNA Not Detected Not Detected [facility] COVID-19 RNA Not Detected Not Detected [facility] Coronavirus 229E RNA Not Detected Not Detected [facility] Coronavirus HKU1 RNA Not Detected Not Detected [facility] Coronavirus NL63 RNA Not Detected Not Detected [facility] Coronavirus OC43 RNA Not Detected Not Detected [facility] Adenovirus DNA Not Detected Not Detected [facility] Metapneumovirus RNA Not Detected Not Detected [facility] Rhinovirus/Enterov irus RNA Not Detected Not Detected [facility] Parainfluenza 1 RNA Not Detected Not Detected [facility] Parainfluenza 2 RNA Not Detected Not Detected [facility] Parainfluenza 3 RNA Not Detected Not Detected [facility] Parainfluenza 4 RNA Not Detected Not Detected [facility] B. pertussis DNA Not Detected Not Detected [facility] B. parapertussis DNA Not Detected Not Detected [facility] C. pneumoniae DNA Not Detected Not Detected [facility] M. pneumoniae DNA Not Detected Not Detected [facility] Nasopharyngeal 06/20/2024 10 :24 PM CDT 06/20/2024 10:40 PM CDT Narrative [facility] - 06/20/2024 11:35 PM CDT Is the Patient experiencing symptoms consistent with COVID?->No Surveillance testing for transplant patient?->No Interpretive Data The [employer] FilmArray Respiratory Panel (RP2.1) assay is a [...] assay has FDA clearance for testing of CUT IN WORKER swabs. The performance of additional specimen types has been assessed by the performing laboratory. The performance characteristics of this assay have been determined by [facility] Molecular Infectious Disease Laboratory. Current interpretive data was last revised on 21. Miko Edwards MD LAB MICROBIOLOGY - [facility] ORDERABLES Final Result [facility] Department [place] [address] * (ABNORMAL) CBC with auto differential (06/20/2024 10:24 PM CDT) WBC 10.33(H) 3.80 - 9.90 K/cumm Hgb 10.6(L) 11.9 - 15.5 g/dL [facility] Hct 31.6(L) 35.6 - 45.5 % [facility] Plt 167 150 - 400 K/cumm [facility] MPV 10.3 9.1 - 12.3 fL [facility] RBC 3.37(L) 3.90 - 5.20 M/cumm [facility] MCV 93.8 81.3 - 96.4 fL [facility] MCH 31.5 27.1 - 33.3 pg [facility] MCHC 33.5 32.3 - 35.7 g/dL [facility] RDW CV 14.0 11.1 - 14.9 % [facility] RDW SD 47.5 35.7 - 48.1 fL [facility] NRBC abs 0.02(H) 0.00 - 0.01 K/cumm [facility] Blood 06/20/2024 10:2 4 PM CDT 06/20/2024 10:35 PM CDT Miko Edwards MD LAB BLOOD ORDERABLES Fi nal Result Performing Organization Address [facility]/ZIP Co de Phone Number [facility] Department [place] [address] * Blood culture Blood Peripheral (06/20/2024 10:24 PM CDT) Report Final Report: No growth Blood (Peripheral) 06/20/2024 10:24 PM CDT 06/20/2024 10:37 PM CDT Narrative [facility] - 06/25/2024 7:01 AM CDT From a [...] performance characteristics have been verified by the [facility]. For questions about this culture, contact the Microbiology Laboratory at [phone]. Interpretive data was last revised on 23. Miko Edwards MD LAB MICROBIOLOGY - GENE RAL ORDERABLES Final Result Performing Organization Address City/[facility]/ZIP Co de Phone Number [facility] Department [place] [address] * Blood culture Blood Peripheral (06/20/2024 10:24 PM CDT) Report Final Report: No growth Blood (Peripheral) 06/20/2024 10:24 PM CDT 06/20/2024 10:38 PM CDT Narrative [facility] - 06/25/2024 7:01 AM CDT Draw Blood [...] performance characteristics have been verified by the [facility]. For questions about this culture, contact the Microbiology Laboratory at [phone]. Interpretive data was last revised on 23. Miko Edwards MD LAB MICROBIOLOGY - GENE [facility] ORDERABLES Final Result [facility] ARVIZU Eileen [facility] Department [place] [address] * aPTT (06/20/2024 10:24 PM CDT) aPTT [...] ORDERABLES Fi nal Result Performing Organization Address [facility] de Phone Number [facility] Department [place] [address] * (ABNORMAL) Protime-INR (06/20/2024 10:24 PM CDT) PT 13.5(H) 9.7 - 13.0 sec INR 1.24(H) 0.90 - 1.20 [facility] Comment: Interpretive data Oral anticoagulant therapeutic ranges: Venous thromboembolism prophylaxis or treatment: 2.0-3.0 CARDIOLOGY Standard range: 2.0-3.0 High-intensity range: 2.5-3.5 Refer to indication-specific guidelines for appropriate target ranges for prosthetic heart valve replacement. Current interpretive data was last revised on 2019. Blood 06/20/2024 10:2 4 PM CDT 06/20/2024 10:38 PM CDT Miko Edwards MD LAB BLOOD ORDERABLES Fi nal Result Performing Organization Address [facility] de Phone Number [facility] Department [place] [address] * Type and screen (06/20/2024 10:24 PM CDT) ABO Rh A Negative Jeanette, indirect Negative [facility] Blood 06/20/2024 10:2 4 PM CDT 06/20/2024 10:42 PM CDT Narrative [facility] - 06/20/2024 11:43 PM CDT Has the patient had Daratumumab or Isatuximab in the past 6 months?->Unknown Miko Edwards MD LAB BLOOD BANK TEST ORD ERABLES Final Result [facility] Department [place] [address] * (ABNORMAL) Basic metabolic panel (06/20/2024 10:24 PM CDT) Pathologist [facility] Sodium 138 135 - 145 mmol/L Potassium, pl 3.3 3.3 - 4.9 mmol/L [facility] Chloride 106 97 - 110 mmol/L [facility] CO2 22 22 - 32 mmol/L [facility] Anion gap 10 2 - 15 mmol/L [facility] BUN 19 6 - 25 mg/dL [facility] Creatinine 1.56(H) 0.60 - 1.10 mg/dL [facility] Glucose 134 70 - 199 mg/dL [facility] Comment: Interpretive Data Fasting glucose >/= [...] 2022. Calcium 7.2(L) 8.5 - 10.3 mg/dL [facility] Blood 06/20/2024 10:2 4 PM CDT 06/20/2024 10:35 PM CDT Miko Edwards MD LAB BLOOD ORDERABLES Fi nal Result Performing Organization Address [facility]/ZIP Co de Phone Number [facility] Department [place] [address] * COLONOSCOPY (07/18/2017 9:10 AM CDT) Anatomical Region Laterality Modality Other Narrative Procedure Note Mike Locke MD - 07/18/2017 9:[address] [facility] Patient Name: Juli Koo Procedure Date: 07/18/2017 9:10 AM Date of : 1960 Admit Type: Outpatient Age: 57 Gender: Female Attending MD: Mike Locke MD Room: [facility] ENDOSCOPY CAPSULE Note Status: Finalized [...] passed under direct vision.The Pediatric Colonoscope PCF-H190L [id number] was introduced through the anus and advanced [...] 9:10 AM Procedure Code(s): --- Professional --- 05549, Colonoscopy, flexible; diagnostic, including collection of specimen(s) by brushing or washing, when performed (separateprocedure) Diagnosis Code(s): --- Professional --- Z86.010, Personal history of colonic polyps K64.8, Other hemorrhoids K57.30, Diverticulosis of large intestine without perforation orabscess without bleeding CPT copyright 2017 [employer]. All rights reserved. The codes documented in this report are preliminary and upon transfill technician reviewmay be revised to meet current compliance requirements. 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 Advance Directives For more information, please contact: [phone] * Full Code (Latest Code Status on [...] 8:32 AM 07/18/2017 12:39 PM Care Teams Technical Aid Relationship Specialty Start Date End Date Yancy Guerrero MD [address] [place] [address] PCP - General 05/22/16 Lupillo Reyes MD [address] [address] Consulting Physician Orthopedic Surgery 07/26/22
--- OUTSIDE RECORDS SUMMARY | 2024-07-15 09:23 | XMS_ITS | Encounter Summary ---
Author Organization [facility] Address [address] [place] [address] Care Team Providers Care Fiction And Nonfiction Author Name Role Phone Yancy Guerrero MD Primary Care Provider + Encounter Details Date Type Department Care Team (Latest Contact Info) Description 01/24/2008 Outpatient Historical [facility] Tod Cifuentes, [address] [facility] [address] [place] [address] Other Screening Mammogram Social History Tobacco Use Types Packs/Day Years Used Date Smoking Tobacco: Never Assessed Comments Unknown Sex and Gender Information Value Date Recorded Sex Assigned at Not on file Legal Sex 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 Gender Identity Not on file Sexual Orientation Not on file documented as of this encounter Plan of Treatment Not on file documented as of this encounter Procedures Procedure Name Priority Date/Time Associated Diagnosis Comments MAMMO SCREEN BILAT W OR WO CAD Routine 01/24/2008 9:19 AM MANUFACTURING SYSTEMS ENGINEER documented in this encounter Results * MAMMO DIGITAL SCREEN BILAT (01/24/2008 9:19 AM MANUFACTURING SYSTEMS ENGINEER) Anatomical Region Laterality Modality Breast Bilateral Other 01/24/2008 9:19 AM MANUFACTURING SYSTEMS ENGINEER Narrative 01/25/2008 7:03 PM MANUFACTURING SYSTEMS ENGINEER [facility] [address] [place], [place] [address] Admit Date: 01/24/2008 JULI KOO Sex: F Admit Prov: TOD DALLAS Date: 1960 Primary Care Prov: PCP, UNKNOWN CMRN: [id number] Room: [facility] SSN: [id number] IMAGING SERVICES Ordering Prov: TOD DALLAS Accession Number: [id number] Interpretation BILATERAL SCREENING DIGITAL MAMMOGRAMS WITH COMPUTER [...] Note Olena Christy - 01/25/2008 [address] [place], [place] [address] Admit Date: 01/24/2008 HANANEJULI Sex: F Admit Prov: TOD DALLAS Date: 1960 Primary Care Prov: PCP, UNKNOWN CMRN: [id number] [id number] [facility] Ordering Prov: TOD DALLAS Interpretation [...] mammogram documented in this encounter Care Teams Fiction And Nonfiction Author Relationship Specialty Start Date End Date Yancy Guerrero MD [address] [place] [id number] PCP - General Internal Medicine 09/22/14 documented as of this encounter
--- OUTSIDE RECORDS SUMMARY | 2024-07-15 09:23 | XMS_ITS ---
Author Organization [facility] [place] [facility] Address [address] [facility] [address] [place] [address] Care Team Providers Care Product Distribution Specialist Name Role Phone Cesar ROSARIO, Yancy Primary Care Provider Arcelia Mullins [phone] Social History Sex Assigned At : Social History Observation Description Sex Assigned At Female Encounters Encounter Location Date Provider Diagnosis [facility] [place] [address] [facility] [address] [place] [address] 03/06/2024 Arcelia Tripp Plan Of Treatment No Information Progress Notes * Camille KOODOB: [birth year] (64 yo F)Acc No.[id number]:03/06/2024 Patient: Anabel BARRCamille CROW Provider: Ami Tripp :1960 A ge:63 Y S ex:Female Date:03/06/2024 Phone: Address:[address] [place], [place] [id number] Pcp:Yancy Guerrero MD Data: * Chief Complaints: * Assessment: Plan: * Treatment: * Billing Information: * Visit Code: * Procedure Codes: * Electronic signature of Roman Tripp LCPC on 07/15/2024 at 09:22 AM CDT Sign off status: Pending Signatures: No Ad Hoc Signature Added * Provider: Ami Tripp Date: 03/06/2024 Generated for Veronika tovar/Dipika/eTlizett on: 0 07/15/2024 09:22 AM CDT
--- OUTSIDE RECORDS SUMMARY | 2024-07-15 09:23 | XMS_ITS | Referral Summary ---
Author Organization [facility] Address [address] [place] [address] Care Team Providers Care Sailmaker Name Role Phone Yancy Guerrero MD Primary Care Provider + [phone] Lupillo Reyes MD Unavailable [phone] Encounters Date Type Department Care Team Description 07/11/2024 Telephone [facility] Surgery [address] [place] [address] Cassie Bee EMT 07/09/2024 Telephone [facility] Urology [address] [place] [address] Office Building [address] [place] [address] Glenis Degroot LPN 07/09/2024 Telephone [facility] Surgery [address] [place] [address] Armida Hughes CMA 07/09/2024 2:00 PM CDT Pre-Admission Testing [facility] Pre Anesthesia Testing [address] [facility] M[address], [address] [place] [address] 07/01/2024 Orders Only [facility] Urology [address] [place] [address] Office Building [address] [place] [address] Chelsea Haywood MD Urinary tract infection without hematuria, site unspecified (Primary Dx) 06/28/2024 Results Follow-Up [facility] [address] [place] [address] 11th [place] [address] [place] [address] Chelsea Haywood MD Urine culture Urine, bladder 06/28/2024 Telephone [facility] Urology [address] [facility] [facility] 11th Floor [address] [place] [phone] Erica Moore B.A. 06/27/2024 Telephone [facility] Case Management [address] [place] [address] Dulce Maria Benites RN 06/26/2024 Orders Only [facility] [address] [place] [phone] Laurie Tierney, [facility] 06/20/2024 10:10 PM CDT - 06/26/2024 6:14 PM CDT Hospital Encounter [address] [phone] Carlos Palomares MD Baiocco, Joseph, MD Mendelsohn, Marc, MD Sepsis without acute organ dysfunction, due to unspecified organism (HCC) (Primary Dx); Kidney stone; Bradycardia; Pyelonephritis of right kidney Discharge Disposition: Discharge to home, home health skilled care 06/24/2024 Telephone [facility] Cardiology [address] [facility] 8th Floor [address] [place] [phone] Pat Calvo 06/24/2024 Documentation [facility] Urology [address] [facility] Office Building [address] [place] [address] Chelsea Haywood MD 2024 2:38 PM CDT Anesthesia Event [facility] Operating Room [address] [place] [phone] Jyothi Roque MD Jablonski, Melody A., NP 2024 2:02 PM CDT - 2024 3:07 PM CDT Surgery [facility] Operating Room [address] [place] [address] Chelsea Haywood MD CYSTOSCOPY PLACEMENT URETERAL STENT 06/20/2024 Hospital Encounter [facility] ADMIT [address] [facility] [place] [address] 06/17/2024 Telephone [facility] Orthopaedic Surgery [address] [facility] 2nd Floor [address] [place] [address] Cheryl Trujillo RN WC Intake Form 06/04/2024 Telephone [facility] Orthopaedic Surgery [address] [facility] 2nd Floor [address] [place] [address] Cheryl Trujillo RN from Last [...] HLD transferred from [facility] for higher level of [...] 03/21/2023 Assessment & Plan (03/23/2023 7:20 AM TECHNOLOGY COORDINATOR): Atenolol resumed with reasonable control Continue to hold Dyazide and losartan until outpatient follow-up HLD (hyperlipidemia) 03/21/2023 Assessment & Plan (03/22/2023 2:05 PM TECHNOLOGY COORDINATOR): Continue atorvastatin Transaminases have normalized. Depression with anxiety 03/21/2023 Assessment & Plan (03/23/2023 7:20 AM TECHNOLOGY COORDINATOR): Cont citalopram 40mg daily and lorazepam 0.5mg BID Resolved Problems Problem Noted Date Diagnosed Date Resolved Date Hypotension 03/21/2023 03/22/2023 Assessment & Plan (03/21/2023 8:09 PM TECHNOLOGY COORDINATOR): - Presenting with BP 80/50s in setting of reduced PO intake and ongoing BP meds - (+)orthostatics on presentation - Hold BP meds, check orthostatics in AM - Restart meds as needed Headache 03/21/2023 03/22/2023 Assessment & Plan (03/21/2023 8:10 PM TECHNOLOGY COORDINATOR): - Tylenol ordered; avoid NSAIDs Weakness 03/21/2023 03/23/2023 Assessment & Plan (03/22/2023 2:06 PM TECHNOLOGY COORDINATOR): TSH and B12 within acceptable limits. Monitor symptoms as blood pressure and renal function recover Nausea 03/21/2023 03/22/2023 Assessment & Plan (03/21/2023 8:10 PM TECHNOLOGY COORDINATOR): - Zofran ordered SUN (acute kidney injury) 03/21/2023 Assessment & Plan (03/23/2023 7:19 AM TECHNOLOGY COORDINATOR): Creatinine improved today Check renal function and electrolytes in outpatient follow-up Continue to hold Dyazide and losartan until outpatient follow-up. Abnormal transaminases 03/21/202303/22 Assessment & Plan (03/21/2023 8:11 PM TECHNOLOGY COORDINATOR): - Elevated in setting of recent viral infection and presumed hypovolemia - Trend in AM - if continues to be elevated consider hepatitis panel/HIV given occupation history Complete rupture of rotator cuff 07/13/2022 03/21/2023 Acute medial meniscus tear of left knee 06/25/2020 03/21/2023 Overview (06/25/2020): Added automatically from request for surgery [id number] Axillary mass, left 12/30/2016 03/21/19 24 Lipoma [...] = 0.6 oz pur e alcohol) socially Ed[employer] Answer Date Recorded In the past 12 months has e [employer], gas, oil, or water [employer] threatened to shut off services in your [...] often do you attend chur ch or hoahaoism services? More than 4 times per year 06/02/2023 Do you belong to any clubs o r organizations such as tenriism groups, unions, fraternal or athletic groups, or [...] on file Legal 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 TECHNOLOGY COORDINATOR Gender Identity Not on file Sexual [...] Description 07/19/2024 12:00 PM CDT Hospital Encounter [facility] Operating Room [address] [place] [address] Rob Kline MD [address] [facility] [place] [address] 07/19/2024 12:00 PM CDT Anesthesia Event [facility] Operating Room [address] [place] [address] Nabila Martinez NP [address] [place] [address] [place] [address] 07/19/2024 12:00 PM CDT - 07/19/2024 1:00 PM CDT Surgery [facility] Operating Room [address] [place] [address] Rob Kline MD [address] [facility] [place] [address] URETEROSCOPY Scheduled Procedures Name Priority Associated Diagnoses Date/Ti me URETEROSCOPY Right kidney stone 07/19/2024 12:00 PM CDT CYSTOSCOPY PLACEMENT URETERA L STENT Right kidney stone 07/19/2024 12:00 PM CDT REMOVAL URETERAL STONE Right kidney stone 07/19/2024 12:00 PM CDT Medical Devices Implanted Type Area Recruitment Manager Device Identifier Shelf Expiration Date Model / Serial / Lot [employer] Universa 6fr 24cm Radiopaque Graduate Firm Monofilament Tether [id number] - [id number] Implanted:Qty: 1 on 2024 by Chelsea Haywood MD at [facility] Stent Right: Ureter [employer] [id number] 12/28/2026 [id number] / / [id number] [employer] Corkscrew Tigertail 5.5mm 14.[address] Mechanism Vent 2 Square [id number] - [id number] Implanted:Qty: 1 on 07/26/2022 by Lupillo Reyes MD at [facility] Right: Shoulder [employer] 02/13/2024 AR-1927B CFT / / [id number] [employer] Corkscrew Tigertail 5.5mm 14.7[address] Mechanism Vent 2 Square [id number] - [id number] Implanted:Qty: 1 on 07/26/2022 by Lupillo Reyes MD at [facility] Right: Shoulder [employer] 11/12/2024 AR-1927B CFT / / [id number] [employer] Swivelock C 4.75mm 19.1mm Closed Eyelet Vent [place] Suture Ar-2324bcc - [id number] Implanted:Qty: 1 on 07/26/2022 by Lupillo Reyes MD at [facility] Right: Shoulder [employer] 02/12/2026 AR-2324B CC / / [id number] Procedures Procedure Name Priority Date/Time Associated Diagnosis [...] CDT Kidney stone Case Notes Poc; Elian [phone] CYSTOSCOPY PLACEMENT URETERAL STENT 2024 2:43 PM CDT Kidney stone Case Notes Poc; Elian [phone] EGFR STAT 2024 1:07 PM CDT LACTATE [...] MD LAB BLOOD ORDERABLES Final Res ult [facility] One [facility] [place] [address] * (ABNORMAL) CBC without differential (06/25/2024 8:45 PM CDT) WBC 7.87 3.80 - 9.90 K/cumm Hgb 11.0(L) 11.9 - 15.5 g/dL [facility] Hct 32.9(L) 35.6 - 45.5 % [facility] Plt 385 150 - 400 K/cumm [facility] MPV 10.6 9.1 - 12.3 fL [facility] RBC 3.50(L) 3.90 - 5.20 M/cumm [facility] MCV 94.0 81.3 - 96.4 fL [facility] MCH 31.4 27.1 - 33.3 pg [facility] MCHC 33.4 32.3 - 35.7 g/dL [facility] RDW CV 14.4 11.1 - 14.9 % [facility] RDW SD 49.4(H) 35.7 - 48.1 fL [facility] NRBC abs 0.00 0.00 - 0.01 K/cumm [facility] Blood 06/25/2024 8:45 PM CDT 06/25/2024 9:59 PM CDT us Braeden Alcantar MD LAB BLOOD ORDERABLES Final Res ult Performing Organization Address City/[facility]/ZIP Co de Phone Number [facility] [place] [address] * Phosphorus (06/25/2024 8:45 PM CDT) [facility] Phosphorus, pl 2.8 2.3 - 4.5 mg/dL Blood 06/25/2024 8:45 PM CDT 06/25/2024 9:43 PM CDT Braeden Alcantar MD LAB BLOOD ORDERABLES Final Res ult Performing Organization Address [facility] Co de Phone Number [facility] [place] [address] * Magnesium (06/25/2024 8:45 PM CDT) [facility] Magnesium 2.0 1.4 - 2.5 mg/dL Blood 06/25/2024 8:45 PM CDT 06/25/2024 9:43 PM CDT Braeden Alcantar MD LAB BLOOD ORDERABLES Final Res ult Performing Organization Address [facility] Co de Phone Number [facility] [place] [address] * Basic metabolic panel (06/25/2024 8:45 PM CDT) [facility] Sodium 139 135 - 145 mmol/L Potassium, pl 3.7 3.3 - 4.9 mmol/L [facility] Chloride 101 97 - 110 mmol/L [facility] CO2 30 22 - 32 mmol/L [facility] Anion gap 8 2 - 15 mmol/L [facility] BUN 11 6 - 25 mg/dL [facility] Creatinine 0.73 0.60 - 1.10 mg/dL [facility] Glucose 137 70 - 199 mg/dL [facility] Comment: Interpretive Data Fasting glucose >/= [...] Calcium 9.2 8.5 - 10.3 mg/dL [facility] Blood 06/25/2024 8:45 PM CDT 06/25/2024 9:43 PM CDT us Braeden Alcantar MD LAB BLOOD ORDERABLES Final Res ult [facility] One [facility] [place] [address] * eGFR (06/24/2024 9:08 PM CDT) eGFR [...] MD LAB BLOOD ORDERABLES Final Res ult [facility] [place] [address] * (ABNORMAL) CBC without differential (06/24/2024 9:08 PM CDT) Pathologist [facility] WBC 8.12 3.80 - 9.90 K/cumm Hgb 10.9(L) 11.9 - 15.5 g/dL [facility] Hct 31.5(L) 35.6 - 45.5 % [facility] Plt 291 150 - 400 K/cumm [facility] MPV 11.0 9.1 - 12.3 fL [facility] RBC 3.43(L) 3.90 - 5.20 M/cumm [facility] MCV 91.8 81.3 - 96.4 fL [facility] MCH 31.8 27.1 - 33.3 pg [facility] MCHC 34.6 32.3 - 35.7 g/dL [facility] RDW CV 14.1 11.1 - 14.9 % [facility] RDW SD 47.6 35.7 - 48.1 fL [facility] NRBC abs 0.00 0.00 - 0.01 K/cumm [facility] Blood 06/24/2024 9:08 PM CDT 06/24/2024 10:07 PM CDT Braeden Alcantar MD LAB BLOOD ORDERABLES Final Res ult [facility] Department [place] [address] * Phosphorus (06/24/2024 9:08 PM CDT) Pathologist [facility] Phosphorus, pl 2.9 2.3 - 4.5 mg/dL Blood 06/24/2024 9:08 PM CDT 06/24/2024 9:47 PM CDT rBaeden Alcantar MD LAB BLOOD ORDERABLES Final Res ult [facility] One [facility] [place] [address] * Magnesium (06/24/2024 9:08 PM CDT) Pathologist [facility] Magnesium 1.8 1.4 - 2.5 mg/dL Blood 06/24/2024 9:08 PM CDT 06/24/2024 9:47 PM CDT Braeden Alcantar MD LAB BLOOD ORDERABLES Final Res ult Performing Organization Address [facility] Co de Phone Number [facility] Department [place] [address] * Basic metabolic panel (06/24/2024 9:08 PM CDT) [facility] Sodium 141 135 - 145 mmol/L Potassium, pl 3.6 3.3 - 4.9 mmol/L [facility] Chloride 103 97 - 110 mmol/L [facility] CO2 30 22 - 32 mmol/L [facility] Anion gap 8 2 - 15 mmol/L [facility] BUN 8 6 - 25 mg/dL [facility] Creatinine 0.67 0.60 - 1.10 mg/dL [facility] Glucose 155 70 - 199 mg/dL [facility] Comment: Interpretive Data Fasting glucose >/= [...] 2022. Calcium 8.8 8.5 - 10.3 mg/dL [facility] Blood 06/24/2024 9:08 PM CDT 06/24/2024 9:47 PM CDT us Braeden Alcantar MD LAB BLOOD ORDERABLES Final Res ult [facility] One [facility] [place] [address] * TRANSTHORACIC ECHO (TTE) COMPLETE W DOPPLER/CF W CONTRAST (06/24/2024 2:47 PM CDT) Estimated EF 55-60 % CONS SCIMAGE EF Mod BP 68 % CONS SCIMAGE Anatomical Region Laterality Modality Ultrasound 06/24/2024 1:39 PM CDT Narrative 06/24/2024 3:12 PM CDT [facility] [place] [address] Transthoracic Echocardiographic Report Patient Name: JULI KOO J : 1960 (64y ) Gender: F Study Date: 06/24/2024 01:39:40 PM Ht(Inch): 65 Wt(Lb): 201.06 BSA: 2.05 End Trimmer: Renita Rosado RDCS Location: [id number] Order Provider: DONNY CARRANZA BMI: 33.45 BP: [...] Note Slava Carrion MD PhD - 06/24/2024 [facility] [place] [address] Transthoracic Echocardiographic Report Patient Name: JULI KOO J : 1960 (64y ) Gender: F Study Date: 06/24/2024 01:39:40 PM Ht(Inch): 65 Wt(Lb): 201.06 BSA: 2.05 End Trimmer: Renita Rosado RDCS Location: [id number] Order Provider:DONNY CARRANZA BMI: 33.45 BP: 123 [...] LAB BLOOD ORDERABLES Final Res ult [facility] One [facility] [place] [address] * (ABNORMAL) CBC without differential (06/23/2024 9:45 PM CDT) WBC 7.48 3.80 - 9.90 K/cumm Hgb 10.6(L) 11.9 - 15.5 g/dL [facility] Hct 30.7(L) 35.6 - 45.5 % [facility] Plt 223 150 - 400 K/cumm [facility] MPV 10.9 9.1 - 12.3 fL [facility] RBC 3.32(L) 3.90 - 5.20 M/cumm [facility] MCV 92.5 81.3 - 96.4 fL [facility] MCH 31.9 27.1 - 33.3 pg [facility] MCHC 34.5 32.3 - 35.7 g/dL [facility] RDW CV 14.1 11.1 - 14.9 % [facility] RDW SD 47.7 35.7 - 48.1 fL [facility] NRBC abs 0.00 0.00 - 0.01 K/cumm [facility] Blood 06/23/2024 9:45 PM CDT 06/23/2024 10:21 PM CDT Braeden Alcantar MD LAB BLOOD ORDERABLES Final Res ult Performing Organization Address City/[facility]/ZIP Co de Phone Number [facility] [email or web address] [address] * Phosphorus (06/23/2024 9:45 PM CDT) [facility] Phosphorus, pl 2.9 2.3 - 4.5 mg/dL Blood 06/23/2024 9:45 PM CDT 06/23/2024 10:22 PM CDT Braeden Alcantar MD LAB BLOOD ORDERABLES Final Res ult [facility] [place] [address] * Magnesium (06/23/2024 9:45 PM CDT) [facility] Magnesium 1.5 1.4 - 2.5 mg/dL Blood 06/23/2024 9:45 PM CDT 06/23/2024 10:22 PM CDT Braeden Alcantar MD LAB BLOOD ORDERABLES Final Res ult Performing Organization Address City/[facility]/ZIP Co de Phone Number [facility] Department [place] [address] * (ABNORMAL) Basic metabolic panel (06/23/2024 9:45 PM CDT) Pathologist [facility] Sodium 138 135 - 145 mmol/L Potassium, pl 2.8(L) 3.3 - 4.9 mmol/L [facility] Chloride 105 97 - 110 mmol/L [facility] CO2 25 22 - 32 mmol/L [facility] Anion gap 8 2 - 15 mmol/L [facility] BUN 8 6 - 25 mg/dL [facility] Creatinine 0.82 0.60 - 1.10 mg/dL [facility] Glucose 91 70 - 199 mg/dL [facility] Comment: Interpretive Data Fasting glucose >/= [...] 2022. Calcium 8.4(L) 8.5 - 10.3 mg/dL [facility] Blood 06/23/2024 9:45 PM CDT 06/23/2024 10:22 PM CDT Braeden Alcantar MD LAB BLOOD ORDERABLES Final Res ult Performing Organization Address [facility]/ZIP Co de Phone Number [facility] [place] [address] * Critical Care (06/23/2024 9:12 AM CDT) Narrative Kecia Troy MD - 06/23/2024 9:12 AM CDT Kecia Troy MD 06/23/2024 4:13 PM Critical Care Performed by: Donny Carranza NP Authorized by: Donny Carranza NP CRITICAL CARE: Team: [place] Shift: AM Level of Billing: Subsequent Hospital [...] plan with the patient's team and other medical/senior product consultant staff. This time was in addition to and separate from care provided by other practitioners on this day of service. I spent time reviewing and interpreting data from bedside monitors, laboratory results, and imaging, I spent time discussing the management of this critically ill patient with consultants and the medical staff and I spent time documenting in the medical record Donny Carranza TEST SPECIALIST IN CLINIC/BEDSIDE JOSE MARR Final Result * eGFR (06/22/2024 7:55 PM CDT) Pathologist [facility] eGFR 80 >=60 mL/min/1. 73 m2 Comment: [...] LAB BLOOD ORDERABLES Final Res ult [facility] [email or web address] [address] * (ABNORMAL) CBC without differential (06/22/2024 7:55 PM CDT) WBC 7.81 3.80 - 9.90 K/cumm Hgb 11.1(L) 11.9 - 15.5 g/dL [facility] Hct 33.1(L) 35.6 - 45.5 % [facility] Plt 180 150 - 400 K/cumm [facility] MPV 11.1 9.1 - 12.3 fL [facility] RBC 3.51(L) 3.90 - 5.20 M/cumm [facility] MCV 94.3 81.3 - 96.4 fL [facility] MCH 31.6 27.1 - 33.3 pg [facility] MCHC 33.5 32.3 - 35.7 g/dL [facility] RDW CV 14.3 11.1 - 14.9 % [facility] RDW SD 48.6(H) 35.7 - 48.1 fL [facility] NRBC abs 0.00 0.00 - 0.01 K/cumm [facility] Blood 06/22/2024 7:55 PM CDT 06/22/2024 9:23 PM CDT Braeden Alcantar MD LAB BLOOD ORDERABLES Final Res ult [facility] [email or web address] [address] * (ABNORMAL) Phosphorus (06/22/2024 7:55 PM CDT) Pathologist [facility] Phosphorus, pl 2.2(L) 2.3 - 4.5 mg/dL Blood 06/22/2024 7:55 PM CDT 06/22/2024 8:52 PM CDT Braeden Alcantar MD LAB BLOOD ORDERABLES Final Res ult Performing Organization Address [facility] Co de Phone Number [facility] Department [place] [address] * Magnesium (06/22/2024 7:55 PM CDT) [facility] Magnesium 2.1 1.4 - 2.5 mg/dL Blood 06/22/2024 7:55 PM CDT 06/22/2024 8:52 PM CDT Braeden Alcantar MD LAB BLOOD ORDERABLES Final Res ult Performing Organization Address [facility] de Phone Number [facility] [place] [address] * (ABNORMAL) Basic metabolic panel (06/22/2024 7:55 PM CDT) [facility] Sodium 136 135 - 145 mmol/L Potassium, pl 4.1 3.3 - 4.9 mmol/L [facility] Chloride 106 97 - 110 mmol/L [facility] CO2 20(L) 22 - 32 mmol/L [facility] Anion gap 10 2 - 15 mmol/L [facility] BUN 15 6 - 25 mg/dL [facility] Creatinine 0.82 0.60 - 1.10 mg/dL [facility] Glucose 146 70 - 199 mg/dL [facility] Comment: Interpretive Data Fasting glucose >/= [...] 2022. Calcium 8.7 8.5 - 10.3 mg/dL [facility] Blood 06/22/2024 7:55 PM CDT 06/22/2024 8:52 PM CDT us Braeden Alcantar MD LAB BLOOD ORDERABLES Final Res ult [facility] One [facility] [place] [address] * Critical Care (06/22/2024 6:39 PM CDT) Narrative Benjy Godinez MD PhD - 06/22/2024 6:39 PM CDT Benjy Godinez MD PhD 06/23/2024 9:03 PM Critical Care Performed by: Asmita Sarabia NP Authorized by: Asmita Sarabia NP CRITICAL CARE: Team: [place] Shift: PM Level of Billing: Subsequent Hospital [...] plan with the patient's team and other medical/senior product consultant staff. This time was in addition to and separate from care provided by other practitioners on this day of service. I spent time reviewing and interpreting data from bedside monitors, laboratory results, and imaging and I spent time documenting in the medical record us Asmita Sarabia TEST SPECIALIST IN CLINIC/BEDSIDE O RDERABLES Final Result * [...] plan with the patient's team and other medical/senior product consultant staff. This time was in addition [...] in the medical record us Donny Carranza TEST SPECIALIST IN CLINIC/BEDSIDE JOSE MARR Final Result * (ABNORMAL) Vancomycin level trough Draw prior to giving vancomycin dose (06/22/2024 5:01 AM CDT) Pathologist [facility] Vancomycin trough 6.8(L) 10.0 - 20.0 mcg/mL Blood 06/22/2024 5:01 AM CDT 06/22/2024 5:14 AM CDT Narrative [facility] - 06/22/2024 6:29 AM CDT Draw prior to giving vancomycin dose us Lyla Jenkins NP LAB BLOOD ORDERABLES Final Res ult [facility] One [facility] [place] [address] * ECG 12 lead (2024 10:48 PM CDT) Ventricular Rate EKG/Min 56 BPM [facility] Atrial Rate 56 BPM [facility] [place]-Interval (MSEC) 148 ms [facility] QRS-Interval (MSEC) 84 ms [facility] QT-Interval (MSEC) 530 ms [facility] QTc 511 ms [facility] P [place] 42 degrees [facility] R [place] -13 degrees [facility] T [place] 23 degrees [facility] Diagnosis Sinus bradycardia Prolonged QT Abnormal ECG Confirmed by Abdelrahman Chowdhury MD ([id number]) on 06/24/2024 6:54:15 PM [facility] 2024 10:4 8 PM CDT 06/24/2024 6:54 PM CDT Braeden Alcantar MD ECG ORDERABLES Final Result Performing Organization Address [facility] Co de Phone Number [facility] * (ABNORMAL) POC Blood Gas and Chemistries, Arterial - (2024 9:59 PM CDT) pH, Art POC 7.34(L) 7.35 - 7.45 pCO2, Art POC 33(L) 35 - 45 mmHg [facility] pO2, Art POC 83 83 - 108 mmHg [facility] Na, POC 135 135 - 145 mmol/L [facility] K POC 3.7 3.3 - 4.9 mmol/L [facility] Comment: Interpretive Data Not all point of care methods assess for hemolysis. Confirm with instrument and retest K+ if not consistent with clinical signs and symptoms. Current Interpretive Data was last revised on 2023. Cl, POC 109 97 - 110 mmol/L [facility] Ionized Ca, POC 5.02 4.50 - 5.10 mg/dL [facility] Glucose, POC 155 70 - 199 mg/dL [facility] Lactate POC 0.6(L) 0.7 - 2.0 mmol/L [facility] SO2 (chay) arterial 98(H) 90 - 95 % [facility] Base excess, POC -7.1 mmol/L [facility] HCO3, Art POC 18(L) 20 - 30 mmol/L [facility] Hct, POC 32.0(L) 36.3 - 45.3 % [facility] Total Hb, POC 10.6(L) 11.9 - 15.5 g/dL [facility] Blood 2024 9:59 PM CDT 2024 9:59 PM CDT Braeden Alcantar MD LAB POCT ORDERABLES - DEVICE F inal Result Performing Organization Address City/[facility]/ZIP Co de Phone Number [facility] [place] [address] * XR Abdomen Ap 1 Vw (2024 [...] PM CDT Devon [facility] LAB MICROBIOLOGY - [facility] [place] [address] * Hepatitis C antibody Blood (2024 5:02 PM CDT) Pathologist [facility] Hep C Ab Nonreactive Nonreactive Comment:Antibodies to HCV no t detected. Does NOT exclude the possibility of recent exposure to HCV. Current interpretive data was last revised on 21 Blood 2024 5:02 PM CDT 2024 5:30 PM CDT us Devon [facility] LAB MICROBIOLOGY - GENER AL ORDERABLES Final Result Performing Organization Address [facility] [place] [address] * RPR Blood (2024 5:02 PM CDT) [facility] RPR Nonreactive Nonreactive Blood 2024 5:02 PM CDT 2024 5:30 PM CDT us Devon [facility] LAB MICROBIOLOGY - GENER AL ORDERABLES Final Result Performing Organization Address [facility] Co de Phone Number [facility] [email or web address] [address] * Hepatitis B Surface Antigen Blood (2024 5:02 PM CDT) [facility] HepBsAg Nonreactive Nonreactive Blood 2024 5:0 2 PM CDT 2024 5:30 PM CDT us Devon [facility] LAB MICROBIOLOGY - GENER AL ORDERABLES Final Result Performing Organization Address [facility] Co de Phone Number [facility] [email or web address] [address] * Lactate (2024 5:00 PM CDT) Lactate 0.7 0.7 - 2.0 mmol/L Blood 2024 5:00 PM CDT 2024 5:31 PM CDT Braeden Alcantar MD LAB BLOOD ORDERABLES Final Res ult Performing Organization Address City/[facility]/ZIP Co de Phone Number ALMA [facility] [email or web address] [address] * (ABNORMAL) eGFR (2024 5:00 PM CDT) [...] ORDERABLES Final Res ult Performing Organization Address City/[facility]/ZIP Co de Phone Number ALMA [facility] [email or web address] [address] * (ABNORMAL) Calcium, ionized (2024 5:00 PM CDT) [facility] Calcium, Ionized 4.43(L) 4.50 - 5.10 mg/dL Blood 2024 5:00 PM CDT 2024 5:37 PM CDT Braeden Alcantar MD LAB BLOOD ORDERABLES Final Res ult [facility] [place] [employer] [address] * (ABNORMAL) CBC without differential (2024 5:00 PM CDT) [facility] WBC 7.37 3.80 - 9.90 K/cumm Hgb 10.2(L) 11.9 - 15.5 g/dL [facility] Hct 29.8(L) 35.6 - 45.5 % [facility] Plt 152 150 - 400 K/cumm [facility] MPV 10.9 9.1 - 12.3 fL [facility] RBC 3.20(L) 3.90 - 5.20 M/cumm [facility] MCV 93.1 81.3 - 96.4 fL [facility] MCH 31.9 27.1 - 33.3 pg [facility] MCHC 34.2 32.3 - 35.7 g/dL [facility] RDW CV 14.2 11.1 - 14.9 % [facility] RDW SD 49.1(H) 35.7 - 48.1 fL [facility] NRBC abs 0.00 0.00 - 0.01 K/cumm [facility] Blood 2024 5:00 PM CDT 2024 5:30 PM CDT Braeden Alcantar MD LAB BLOOD ORDERABLES Final Res ult [facility] [place] [address] * Phosphorus (2024 5:00 PM CDT) Pathologist [facility] Phosphorus, pl 2.6 2.3 - 4.5 mg/dL Blood 2024 5:00 PM CDT 2024 5:37 PM CDT Braeden Alcantar MD LAB BLOOD ORDERABLES Final Res ult Performing Organization Address City/[facility] Co de Phone Number [facility] [place] [address] * Magnesium (2024 5:00 PM CDT) [facility] Magnesium 1.7 1.4 - 2.5 mg/dL Blood 2024 5:00 PM CDT 2024 5:37 PM CDT Braeden Alcantar MD LAB BLOOD ORDERABLES Final Res ult Performing Organization Address [facility] de Phone Number [facility] [place] [address] * (ABNORMAL) Blood gas, arterial (2024 5:00 PM CDT) Pathologist [facility] pH, Art 7.36 7.35 - 7.45 PCO2, Arterial 34(L) 35 - 45 mmHg [facility] PO2, Arterial 125(H) 83 - 108 mmHg [facility] HCO3 Art (Calculated) 20 20 - 30 mmol/L [facility] BE, art -6 mmol/L [facility] Comment: Interpretive Data No Reference Range Established Current Interpretive Data was last revised on 2017 O2 Sat Art (Measured) 98(H) 90 - 95 % [facility] Blood 2024 5:00 PM CDT 2024 5:22 PM CDT Braeden Alcantar MD LAB BLOOD ORDERABLES Final Res ult [facility] [place] [address] * (ABNORMAL) Basic metabolic panel (2024 5:00 PM CDT) Pathologist [facility] Sodium 142 135 - 145 mmol/L Potassium, pl 3.1(L) 3.3 - 4.9 mmol/L [facility] Chloride 107 97 - 110 mmol/L [facility] CO2 23 22 - 32 mmol/L [facility] Anion gap 12 2 - 15 mmol/L [facility] BUN 15 6 - 25 mg/dL [facility] Creatinine 1.12(H) 0.60 - 1.10 mg/dL [facility] Glucose 126 70 - 199 mg/dL [facility] Comment: Interpretive Data Fasting glucose >/= [...] 2022. Calcium 8.1(L) 8.5 - 10.3 mg/dL [facility] Blood 2024 5:00 PM CDT 2024 5:37 PM CDT us Braeden Alcantar MD LAB BLOOD ORDERABLES Final Res ult Performing Organization Address City/[facility]/ZIP Co de Phone Number AL[facility] [place] [address] * ECG 12 lead (2024 4:29 PM CDT) Ventricular Rate EKG/Min 63 BPM [facility] Atrial Rate 63 BPM [facility] [place]-Interval (MSEC) 144 ms [facility] QRS-Interval (MSEC) 86 ms [facility] QT-Interval (MSEC) 498 ms [facility] QTc 509 ms [facility] P [place] 17 degrees [facility] R [place] -22 degrees [facility] T [place] 12 degrees [facility] Diagnosis Normal sinus rhythm Minimal voltage criteria for LVH, may be normal variant Prolonged QT Abnormal ECG Confirmed by Abdelrahman Chowdhury MD ([id number]) on 06/24/2024 6:57:56 PM [facility] 2024 4:29 PM CDT 06/24/2024 6:57 PM CDT us Braeden Alcantar MD ECG ORDERABLES Final Result [facility] * (ABNORMAL) POC Blood Gas and Chemistries, Arterial - (2024 3:47 PM CDT) pH, Art POC 7.42 7.35 - 7.45 pCO2, Art POC 31(L) 35 - 45 mmHg [facility] pO2, Art POC 158(H) 83 - 108 mmHg [facility] Na, POC 139 135 - 145 mmol/L [facility] K POC 2.9(L) 3.3 - 4.9 mmol/L [facility] Comment: Interpretive Data Not all point of care methods assess for hemolysis. Confirm with instrument and retest K+ if not consistent with clinical signs and symptoms. Current Interpretive Data was last revised on 2023. Cl, POC 112(H) 97 - 110 mmol/L [facility] Ionized Ca, POC 4.44(L) 4.50 - 5.10 mg/dL [facility] Glucose, POC 116 70 - 199 mg/dL [facility] Lactate POC 1.2 0.7 - 2.0 mmol/L [facility] SO2 (chay) arterial 100(H) 90 - 95 % [facility] Base excess, POC -3.6 mmol/L [facility] HCO3, Art POC 20 20 - 30 mmol/L [facility] Hct, POC 31.0(L) 36.3 - 45.3 % [facility] Total Hb, POC 10.3(L) 11.9 - 15.5 g/dL [facility] Blood 2024 3:47 PM CDT 2024 3:47 PM CDT Braeden Alcantar MD LAB POCT ORDERABLES - DEVICE F inal Result Performing Organization Address City/[facility]/ZIP Co de Phone Number [facility] One [facility] [place] [address] * FL Fluoroscopy < 1 Hour (2024 3:20 PM CDT) Narrative [facility] - 2024 3:20 PM CDT The images from this study are not interpreted by Radiology. Please refer to the physician's procedure / OR operative note. Chelsea Haywood MD IMG FLUOROSCOPY PROCEDURES Fin al Result Performing Organization Address [facility] Co de Phone Number [facility] * (ABNORMAL) Urine culture Urine, bladder (2024 [...] (clinically insignificant growth. (.) Organism ESCHERICHIA COLI [facility] Urine, bladder 2024 3: 20 PM CDT 2024 5:31 PM CDT Narrative [facility] - 06/27/2024 10:28 AM CDT URINE CULTURE Indications for Culture:->Urology patient Testing performed by [facility] ([phone]) Organism Antibiotic Method Susceptibility Escherichia coli Ampicillin [...] Edited Result - Final Performing Organization Address City/[facility]/ZIP Co de Phone Number [facility] [email or web address] [address] * Lactate (2024 1:07 PM CDT) Pathologist [facility] Lactate 0.8 0.7 - 2.0 mmol/L Blood 2024 1:07 PM CDT 2024 1:40 PM CDT us Lyla Jenkins NP LAB BLOOD ORDERABLES Final Res ult Performing Organization Address [facility] Co de Phone Number [facility] [email or web address] [address] * (ABNORMAL) eGFR (2024 1:07 PM CDT) [...] CDT 2024 2:06 PM CDT Lyla Jenkins TEST SPECIALIST LAB BLOOD ORDERABLES Final Res ult Performing Organization Address City/[facility]/ZIP Co de Phone Number [facility] One [facility] [place] [address] * (ABNORMAL) CBC without differential (2024 1:07 PM CDT) WBC 7.70 3.80 - 9.90 K/cumm Hgb 10.6(L) 11.9 - 15.5 g/dL [facility] Hct 30.6(L) 35.6 - 45.5 % [facility] Plt 161 150 - 400 K/cumm [facility] MPV 11.0 9.1 - 12.3 fL [facility] RBC 3.31(L) 3.90 - 5.20 M/cumm [facility] MCV 92.4 81.3 - 96.4 fL [facility] MCH 32.0 27.1 - 33.3 pg [facility] MCHC 34.6 32.3 - 35.7 g/dL [facility] RDW CV 14.3 11.1 - 14.9 % [facility] RDW SD 49.0(H) 35.7 - 48.1 fL [facility] NRBC abs 0.00 0.00 - 0.01 K/cumm [facility] Blood 2024 1:07 PM CDT 2024 2:06 PM CDT Lyla Jenkins NP LAB BLOOD ORDERABLES Final Res ult ALMA [facility] [place] [address] * (ABNORMAL) Basic metabolic panel (2024 1:07 PM CDT) Sodium 139 135 - 145 mmol/L Potassium, pl 3.3 3.3 - 4.9 mmol/L [facility] Chloride 108 97 - 110 mmol/L [facility] CO2 21(L) 22 - 32 mmol/L [facility] Anion gap 10 2 - 15 mmol/L [facility] BUN 16 6 - 25 mg/dL [facility] Creatinine 1.21(H) 0.60 - 1.10 mg/dL [facility] Glucose 100 70 - 199 mg/dL [facility] Comment: Interpretive Data Fasting glucose >/= [...] 2022. Calcium 7.8(L) 8.5 - 10.3 mg/dL [facility] Blood 2024 1:07 PM CDT 2024 2:06 PM CDT us Lyla Jenkins NP LAB BLOOD ORDERABLES Final Res ult [facility] [place] [address] * Urine culture Urine, clean voided (2024 8:45 AM CDT) Report Final Report: Less than 100,000 colonies/mL (clinically insignificant growth based on current clinical standards) Organism (CLINICALLY INSIGNIFICANT GROWTH [facility] Urine, clean voided 2024 8:45 AM CDT 2024 9:43 AM CDT Narrative [facility] - 06/22/2024 12:09 PM CDT Indications for Culture:->Recent positive UA Testing performed by [facility]biology [facility] ([phone]) Braeden Alcantar MD LAB MICROBIOLOGY - GENERAL ORD ERABLES Final Result [facility] One [facility] [place] [address] * (ABNORMAL) Urinalysis reflex to microscopic (2024 8:32 AM CDT) Color, ur Yellow Yellow Clarity, ur Turbid(A) Clear [facility] Specific gravity, ur 1.017 1.003 - 1.030 [facility] pH, urine 6.0 [facility] Comment: Interpretive Data U rine pH [...] on 2017 Protein, ur ql 2+(A) Negative [facility] Glucose, ur ql Negative Negative [facility] Ketones, ur 1+(A) Negative [facility] Bilirubin, ur Negative Negative [facility] Blood, ur 1+(A) Negative [facility] Urobilinogen, ur <2.0 <2.0 mg/dL [facility] Nitrite, ur Positive(A) Negative [facility] Leukocyte esterase, ur 3+(A) Negative [facility] UA reflex comment Reflex to microscopic UA will be performed. [facility] Urine 2024 8:32 AM CDT 2024 9:19 AM CDT Braeden Alcantar MD LAB URINE ORDERABLES Final Res ult Performing Organization Address City/[facility]/ZIP Co de Phone Number [facility] [place] [address] * (ABNORMAL) Urinalysis, microscopic only (2024 8:32 AM CDT) WBC, ur >50(A) 0 - 5 /HPF RBC, ur 6-10(A) 0 - 2 /HPF [facility] Epithelial cells, squamous, ur 1-5 0 - 5 /HPF [facility] Bacteria, ur 4+(A) [facility] Urine 2024 8:32 AM CDT 2024 9:19 AM CDT Braeden Alcantar MD LAB URINE ORDERABLES Final Res ult Performing Organization Address [facility] de Phone Number [facility] [place] [address] * [place] Kidney Complete (2024 12:33 AM [...] by: Yojana Perez M.D. Miko Edwards MD [facility] [place] PROCEDURES Final Result * Check Sample (06/20/2024 11:13 PM CDT) ABO Rh A Negative [facility] OTHER 06/20/2024 11:1 3 PM CDT 06/20/2024 11:45 PM CDT us Carlos Palomares MD LAB BLOOD ORDERABLES Shanell l Result ALMA [facility] One [facility] [place] [address] [facility] * XR Chest 1 Vw Portable (06/20/2024 [...] images may or may not represent the paimiut source data set and thus may contain [...] IMAGING STUDY STUDY INITIALLY PERFORMED: 06/20/2024 at [facility] [place]. TYPE OF STUDY: Multiple CT images of [...] IMAGING STUDY STUDY INITIALLY PERFORMED: 06/20/2024 at [facility] [place]. TYPE OF STUDY: Multiple CT images of [...] images may or may not represent the paimiut source data set and thus may contain [...] only and have not been reviewed by [facility] Radiology. There will be no report generated by a [facility] Radiologist. Narrative [facility] - 06/20/2024 10:49 PM CDT EXAMINATION: Images For Reference Purposes Only Marc Grijalva MD IMG CT PROCEDURES Final Result [facility] * ECG 12-LEAD (06/20/2024 10:46 PM CDT) Narrative [facility] - 06/20/2024 10:46 PM CDT Carlos [...] evidence of acuteischemia. Carlos Palomares MD 06/20/24 0310 Miko Edwards MD ECG ORDERABLES Final R esult Performing Organization Address [facility]/ZIP Co de Phone Number [facility] * Sepsis Lactate w/ Reflex (06/20/2024 10:38 PM CDT) [facility] Sepsis Lactate 1.1 0.7 - 2.0 mmol/L Blood 06/20/2024 10:3 8 PM CDT 06/20/2024 10:42 PM CDT Carlos Palomares MD LAB BLOOD ORDERABLES Shanell l Result Performing Organization Address [facility] Co de Phone Number [facility] [place] [address] * POCT glucose (06/20/2024 10:27 PM CDT) [facility] Glucose, POC 162 70 - 199 mg/dL Blood 06/20/2024 10:2 7 PM CDT 06/20/2024 10:27 PM CDT Carlos Palomares MD LAB POCT ORDERABLES - DEV ICE Final Result Performing Organization Address [facility] de Phone Number [facility] [place] [address] * (ABNORMAL) eGFR (06/20/2024 10:24 PM CDT) [facility] eGFR 37(L) >=60 mL/min/1. 73 m2 [...] MD LAB BLOOD ORDERABLES Fi nal Result [facility] One [facility] [place] [address] * (ABNORMAL) Differential, auto (06/20/2024 10:24 PM CDT) Neutrophil abs 8.00(H) 1.50 - 6.50 K/cumm Imm gran abs 0.12(H) 0.00 - 0.10 K/cumm [facility] Lymphocyte abs 1.11 0.80 - 3.30 K/cumm [facility] Monocyte abs 1.06(H) 0.20 - 0.80 K/cumm [facility] Eosinophil abs 0.00 0.00 - 0.50 K/cumm [facility] Basophil abs 0.04 0.00 - 0.10 K/cumm [facility] Neutrophil pct 77.4 % [facility] Comment: Interpretive Data Percent cell count reference ranges are not reported, since discordance with absolute values may lead to misinterpretation of CBC data. Current Interpretive Data was last revised on 2017. Imm gran pct 1.2 % [facility] Comment: Interpretive Data Percent cell count reference ranges are not reported, since discordance with absolute values may lead to misinterpretation of CBC data. Current Interpretive Data was last revised on 2017. Lymphocyte pct 10.7 % [facility] Comment: Interpretive Data Percent cell count reference ranges are not reported, since discordance with absolute values may lead to misinterpretation of CBC data. Current Interpretive Data was last revised on 2017. Monocyte pct 10.3 % [facility] Comment: Interpretive Data Percent cell count reference ranges are not reported, since discordance with absolute values may lead to misinterpretation of CBC data. Current Interpretive Data was last revised on 2017. Eosinophil pct 0.0 % [facility] Comment: Interpretive Data Percent cell count reference ranges are not reported, since discordance with absolute values may lead to misinterpretation of CBC data. Current Interpretive Data was last revised on 2017. Basophil pct 0.4 % [facility] Comment: Interpretive Data Percent cell count reference ranges are not reported, since discordance with absolute values may lead to misinterpretation of CBC data. Current Interpretive Data was last revised on 2017. Blood 06/20/2024 10:2 4 PM CDT 06/20/2024 10:35 PM CDT Miko Edwards MD LAB BLOOD ORDERABLES nal Result [facility] One [facility] [place] [address] * Respiratory pathogen panel Nasopharyngeal (06/20/2024 10:24 PM CDT) Pathologist [facility] Influenza A RNA Not Detected Not Detected Influenza B RNA Not Detected Not Detected [facility] RSV RNA Not Detected Not Detected [facility] COVID-19 RNA Not Detected Not Detected [facility] Coronavirus 229E RNA Not Detected Not Detected [facility] Coronavirus HKU1 RNA Not Detected Not Detected [facility] Coronavirus NL63 RNA Not Detected Not Detected [facility] Coronavirus OC43 RNA Not Detected Not Detected [facility] Adenovirus DNA Not Detected Not Detected [facility] Metapneumovirus RNA Not Detected Not Detected [facility] Rhinovirus/Enterov irus RNA Not Detected Not Detected [facility] Parainfluenza 1 RNA Not Detected Not Detected [facility] Parainfluenza 2 RNA Not Detected Not Detected [facility] Parainfluenza 3 RNA Not Detected Not Detected [facility] Parainfluenza 4 RNA Not Detected Not Detected [facility] B. pertussis DNA Not Detected Not Detected [facility] B. parapertussis DNA Not Detected Not Detected [facility] C. pneumoniae DNA Not Detected Not Detected [facility] M. pneumoniae DNA Not Detected Not Detected [facility] Nasopharyngeal 06/20/2024 10 :24 PM CDT 06/20/2024 10:40 PM CDT Narrative [facility] - 06/20/2024 11:35 PM CDT Is the Patient experiencing symptoms consistent with COVID?->No Surveillance testing for transplant patient?->No Interpretive Data The [employer] FilmArray Respiratory Panel (RP2.1) assay is a [...] assay has FDA clearance for testing of TEST SPECIALIST swabs. The performance of additional specimen types has been assessed by the performing laboratory. The performance characteristics of this assay have been determined by [facility]ious Disease [facility]. Current interpretive data was last revised on 21. Miko Edwards MD LAB MICROBIOLOGY - [facility] ORDERABLES Final Result [facility] One [facility] [place] [address] * (ABNORMAL) CBC with auto differential (06/20/2024 10:24 PM CDT) WBC 10.33(H) 3.80 - 9.90 K/cumm Hgb 10.6(L) 11.9 - 15.5 g/dL [facility] Hct 31.6(L) 35.6 - 45.5 % [facility] Plt 167 150 - 400 K/cumm [facility] MPV 10.3 9.1 - 12.3 fL [facility] RBC 3.37(L) 3.90 - 5.20 M/cumm [facility] MCV 93.8 81.3 - 96.4 fL [facility] MCH 31.5 27.1 - 33.3 pg [facility] MCHC 33.5 32.3 - 35.7 g/dL [facility] RDW CV 14.0 11.1 - 14.9 % [facility] RDW SD 47.5 35.7 - 48.1 fL [facility] NRBC abs 0.02(H) 0.00 - 0.01 K/cumm [facility] Blood 06/20/2024 10:2 4 PM CDT 06/20/2024 10:35 PM CDT Miko Edwards MD LAB BLOOD ORDERABLES Fi nal Result Performing Organization Address [facility]/ZIP Co de Phone Number [facility] [place] [address] * Blood culture Blood Peripheral (06/20/2024 10:24 PM CDT) Report Final Report: No growth Blood (Peripheral) 06/20/2024 10:24 PM CDT 06/20/2024 10:37 PM CDT Narrative [facility] - 06/25/2024 7:01 AM CDT From a [...] performance characteristics have been verified by the [facility]. For questions about this culture, contact the Microbiology Laboratory at [phone]. Interpretive data was last revised on 23. Miko Edwards MD LAB MICROBIOLOGY - [facility] ORDERABLES Final Result Performing Organization Address City/[facility] Co de Phone Number [facility] One [facility] [place] [address] * Blood culture Blood Peripheral (06/20/2024 10:24 [...] performance characteristics have been verified by the [facility]. For questions about this culture, contact the Microbiology Laboratory at [phone]. Interpretive data was last revised on 23. us Miko Edwards MD LAB MICROBIOLOGY - [facility] ORDERABLES Final Result [facility] [place] [address] * aPTT (06/20/2024 10:24 PM CDT) aPTT [...] ORDERABLES Fi nal Result Performing Organization Address [facility] de Phone Number [facility] [place] [address] * (ABNORMAL) Protime-INR (06/20/2024 10:24 PM CDT) PT 13.5(H) 9.7 - 13.0 sec INR 1.24(H) 0.90 - 1.20 [facility] Comment: Interpretive data Oral anticoagulant therapeutic ranges: Venous thromboembolism prophylaxis or treatment: 2.0-3.0 CARDIOLOGY Standard range: 2.0-3.0 High-intensity range: 2.5-3.5 Refer to indication-specific guidelines for appropriate target ranges for prosthetic heart valve replacement. Current interpretive data was last revised on 2019. Blood 06/20/2024 10:2 4 PM CDT 06/20/2024 10:38 PM CDT Result [facility] Miko Edwards MD LAB BLOOD ORDERABLES Fi nal Result Performing Organization Address [facility] Co de Phone Number [facility] [place] [address] * Type and screen (06/20/2024 10:24 PM CDT) ABO Rh A Negative Jeanette, indirect Negative [facility] Blood 06/20/2024 10:2 4 PM CDT 06/20/2024 10:42 PM CDT Narrative [facility] - 06/20/2024 11:43 PM CDT Has the patient had Daratumumab or Isatuximab in the past 6 months?->Unknown Miko Edwards MD LAB BLOOD BANK TEST ORD ERABLES Final Result [facility] [place] [address] * (ABNORMAL) Basic metabolic panel (06/20/2024 10:24 PM CDT) [facility] Sodium 138 135 - 145 mmol/L Potassium, pl 3.3 3.3 - 4.9 mmol/L [facility] Chloride 106 97 - 110 mmol/L [facility] CO2 22 22 - 32 mmol/L [facility] Anion gap 10 2 - 15 mmol/L [facility] BUN 19 6 - 25 mg/dL [facility] Creatinine 1.56(H) 0.60 - 1.10 mg/dL [facility] Glucose 134 70 - 199 mg/dL [facility] Comment: Interpretive Data Fasting glucose >/= [...] 2022. Calcium 7.2(L) 8.5 - 10.3 mg/dL [facility] Blood 06/20/2024 10:2 4 PM CDT 06/20/2024 10:35 PM CDT Miko Edwards MD LAB BLOOD ORDERABLES Fi nal Result [facility] [place] [address] * COLONOSCOPY (07/18/2017 9:10 AM CDT) Anatomical Region Laterality Modality Other Narrative Procedure Note Mike Locke MD - 07/18/2017 9:10 AM CDT [facility] Patient Name: Juli Koo Procedure Date: 07/18/2017 9:10 AM Date of : 1960 Admit Type: Outpatient Age: 57 Gender: Female Attending MD: Mike Locke MD Room: [facility] ENDOSCOPY CAPSULE Note Status: Finalized [...] passed under direct vision.The Pediatric Colonoscope PCF-H190L [id number] was introduced through the anus and advanced [...] 9:10 AM Procedure Code(s): --- Professional --- 16143, Colonoscopy, flexible; diagnostic, including collection of specimen(s) by brushing or washing, when performed (separateprocedure) Diagnosis Code(s): --- Professional --- Z86.010, Personal history of colonic polyps K64.8, Other hemorrhoids K57.30, Diverticulosis of large intestine without perforation orabscess without bleeding CPT copyright 2017 [employer]. All rights reserved. The codes documented in this report are preliminary and upon outreach specialist reviewmay be revised to meet current compliance requirements. Recognized by the [place] for promoting quality in endoscopy Mike Locke MD ENDOSCOPY PROCEDURES Final Result from Last 3 Months or Most Recently Relevant to Health Maintenance Additional Health Concerns Infection Onset Date Last Indicated MDR gram neg/ESBL 2024 20[id number] [place] [address] [facility] WORKERS COMPENSATION GENERIC Member Subscriber Plan / Payer (Ef fective 2022-Present) Name:Juli Koo Relation to Subscriber:Self Name:Juli Koo Payer ID:[id number] Group ID:Not on file Type:WORKERS COMPENSATION Address: [place] [id number] [facility] Advance Directives For more information, please contact: [phone] * Full Code (Latest Code Status on [...] 8:32 AM 07/18/2017 12:39 PM Care Teams Sailmaker Relationship Specialty Start Date End Date Yancy Guerrero MD [address] [place] [address] PCP - General 05/22/16 Lupillo Reyes MD [address] [address] Consulting Physician Orthopedic Surgery 07/26/22
--- OUTSIDE RECORDS SUMMARY | 2024-07-15 09:23 | XMS_ITS | Encounter Summary ---
Author Organization [facility] Address [address] [place] [address] Phone Care Team Providers Care Alcohol Still Operator Name Role Phone Yancy Guerrero MD Primary Care Provider + [phone] Lupillo Reyes MD Unavailable [phone] Encounter Details Date Type Department Care Team (Late st Contact Info) Description 06/24/2024 Documentation [facility] [address] [facility] [address] [place] [address] Chelsea Haywood MD [address] [facility] [address] [place], [place] [id number] Social History Tobacco Use Types Packs/Day Years Used Date Smoking Tobacco: Every Day Cigarettes 0.2 2 Smokeless Tobacco: Never Comments:Two packs per week for last 2 years Alcohol Use Standard Drinks/Week Comments Yes 0 (1 standard drink = 0.6 oz pur e alcohol) socially [facility] Utilities Answer Date Recorded In the past 12 months has [employer], gas, oil, or water company threatened [...] any clubs o r organizations such as caodaism groups, unions, fraternal or athletic groups, or [...] place to sleep or slept in a nursing home (including now)? No 06/02/2023 Personal Safety Answer Date Recorded Have you ever been in or are you currently in a harmful physical or emotional relationship or is someone making you feel afraid or unsafe? 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 female with pmh anxiety/depression, AF (Xarelto), HTN, HLD transferred from [facility] for higher level of care. Had Right [...] Description 07/19/2024 12:00 PM CDT Hospital Encounter [facility] Operating Room [address] [place] [address] Rob Kline MD [address] [facility] [place] [address] 07/19/2024 12:00 PM CDT Anesthesia Event [facility] Operating Room [address] [place] [address] Nabila Martinez NP [address] [place] [address] [place] [address] 07/19/2024 12:00 PM CDT - 07/19/2024 1:00 PM CDT Surgery [facility] Operating Room [address] [place] [address] Rob Kline MD [address] [facility] [place] [address] URETEROSCOPY Scheduled Procedures Name Priority Associated Diagnoses [...] documented as of this encounter Care Teams Alcohol Still Operator Relationship Specialty Start Date End Date Yancy Guerrero MD [address] [place] [address] PCP - General 05/22/16 Lupillo Reyes MD [address] [facility] [address] [place] [address] Consulting Physician Orthopedic Surgery 07/26/22 documented as of this encounter
--- OUTSIDE RECORDS SUMMARY | 2024-07-15 09:23 | XMS_ITS | Patient Health Record ---
Author Organization [facility] Address [address] [facility] [address] [place] [address] Care Team Providers Care Math And Science Division Chair Name Role Phone Yancy Guerrero MD Primary Care Provider UnavailArcelia Gonzalez Unavailable [phone] Reason For Referral No Information Social History [...] (F33.2) Active confirmed Problem Generalized anxiety disorder (27626570) Generalized anxiety disorder (F41.1) Active confirmed Problem Posttraumatic stress disorder (48535012) PTSD (post-traumatic stress disorder) (F43.10) Active confirmed Problem Alcohol abuse (08728191) Alcohol abuse (F10.10) Active confirmed Encounters Encounter Location Date Provider Diagnosis [facility], Walk[facility] [address] [place] [address] 01/18/2024 Arcelia Tripp Major depressive disorder, recurrent severe without psychotic features F33.2 ; Generalized anxiety disorder F41.1 and Alcohol abuse F10.10 [facility] [address] [place] [address] 01/23/2024 Arcelia Tripp Major depressive disorder, recurrent severe without psychotic features F33.2 ; Generalized anxiety disorder F41.1 ; Alcohol abuse F10.10 and PTSD (post-traumatic stress disorder) F43.10 [facility] [address] [place] [address] 02/02/2024 Arcelia Tripp [employer] [facility], Walkin [address] [place] [address] 02/28/2024 Arcelia Tripp Major depressive disorder, recurrent severe without psychotic features F33.2 ; Generalized anxiety disorder F41.1 ; Alcohol abuse F10.10 and PTSD (post-traumatic stress disorder) F43.10 [facility] [employer] [facility] [address] [place] [address] 02/13/2024 Arcelia Tripp [facility] [employer] [facility] [address] [place] [address] 02/26/2024 Arcelia Tripp [facility] [employer] [facility] [address] [place] [address] 03/06/2024 Arcelia Tripp Assessments Encounter Date Diagnosis (ICD Code) Assessment Notes Treatment Notes Treatment Clinical Notes Section Notes 01/18/2024 Major depressive disorder, recurrent severe without psychotic features (ICD-10 - F33.2) Marital Status: Living Arrangement: lives alone Children: 2 daughters Support System: daughters Highest Level of Education: completed college 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 History: Denied Legal History: DUI, 04/26/22 Family History of MH/RADHAMES: alcohol, anxiety, PTSD, bipolar Physical Medical Conditions: hypertension, afib, elevated lipids Spiritual Beliefs: Jainism Suicidal Ideation/Self Harm: Denied Homicidal Ideation: Denied [...] weekly support group meetings, like AA or [employer], to sustain sobriety and develop a support [...] Level of Education: completed college 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 and [employer], for additional support. 2. Family-related Stress - [...] of local support groups, including [employer] and [employer], for additional support. 2. Family-related Stress - [...] to address underlying issues. Utilize a daily operations planner incorporating affirmations and goals to foster [...] of the potential tear. Consult with an homeland security program specialist for a comprehensive evaluation and to [...] to address underlying issues. Utilize a daily operations planner incorporating affirmations and goals to foster [...] of the potential tear. Consult with an homeland security program specialist for a comprehensive evaluation and to [...] of local support groups, including [employer] and [employer], for additional support. 2. Family-related Stress - [...] to address underlying issues. Utilize a daily operations planner incorporating affirmations and goals to foster [...] of the potential tear. 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 and [employer], for additional support. 2. Family-related Stress - [...] to address underlying issues. Utilize a daily operations planner incorporating affirmations and goals to foster [...] of the potential tear. Consult with an homeland security program specialist for a comprehensive evaluation and to [...] Insured Coverage Start Date Coverage End Date [facility] [address] [place] [address] [phone] [id number] Camille Hendricks Self - patient is the [...]
--- OUTSIDE RECORDS SUMMARY | 2024-07-15 09:23 | XMS_ITS | Encounter Summary ---
Author Organization [facility] Address [address] [facility] [address] [place] [address] Phone Care Team Providers Care Reexaminer Name Role Phone Yancy Guerrero MD Primary Care Provider + [phone] Lupillo Reyes MD Unavailable [phone] Encounter Details Date Type Department Care Team (Latest Contact Info) Description 11/25/2010 Orders Only [facility] Wendy Choudhary, ISAIAS [address] [facility] [address] [place], [place] [id number] Social History Tobacco Use Types Packs/Day Years Used Date Smoking Tobacco: Never Assessed Comments Unknown Sex and Gender Information Value Date Recorded Sex Assigned at Not on file Legal 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 AUDIO VISUAL DIRECTOR Gender Identity Not on file Sexual Orientation Not on file documented as of this encounter Plan of Treatment Upcoming Encounters Date Type Department Care Team (Late st Contact Info) Description 07/19/2024 12:00 PM CDT Hospital Encounter [facility] Operating Room [address] [place] [address] Rob Kline MD [address] [facility] [place] [address] 07/19/2024 12:00 PM CDT Anesthesia Event [facility] Operating Room [address] [place] [address] Nabila Martinez NP [address] [place] [address] [place] [address] 07/19/2024 12:00 PM CDT - 07/19/2024 1:00 PM CDT Surgery [facility] Operating Room [address] [place] [address] Rob Kline MD [address] [place] [place] [address] URETEROSCOPY Scheduled Procedures Name Priority Associated Diagnoses [...] COVID: Suspected 12/06/2019 12/06/2019 12/20/2019 3:05 AM AUDIO VISUAL DIRECTOR COVID: Suspected 01/14/2021 01/14/2021 01/14/2021 9:43 PM AUDIO VISUAL DIRECTOR COVID: Suspected 01/17/2021 01/17/2021 01/18/2021 5:33 AM AUDIO VISUAL DIRECTOR COVID: Suspected 08/06/2021 08/06/2021 08/07/2021 3:05 AM CDT COVID: Suspected 08/06/2021 08/06/2021 08/07/2021 3:18 AM CDT COVID19 08/06/2021 08/06/2021 08/16/2021 3:05 AM CDT COVID: Recovered Comment:Added based on recent COVID infection. 08/16/2021 08/16/2021 12/14/2021 3:05 AM C DT COVID: Suspected 09/23/2021 09/23/2021 09/23/2021 10:56 PM CDT COVID: Suspected 09/29/2021 09/29/2021 09/29/2021 10:32 PM CDT COVID: Suspected 12/24/2021 12/25/2021 12/25/2021 3:05 AM AUDIO VISUAL DIRECTOR COVID: Suspected 12/25/2021 12/25/2021 12/26/2021 3:05 AM AUDIO VISUAL DIRECTOR COVID: Suspected 12/25/2021 12/25/2021 12/26/2021 3:49 PM AUDIO VISUAL DIRECTOR MDR gram neg/ESBL 2024 2024 documented as of this encounter Care Teams Reexaminer Relationship Specialty Start Date End Date Yancy Guerrero MD [address] [place] [address] PCP - General 05/22/16 Lupillo Reyes MD [address] [address] Consulting Physician Orthopedic Surgery 07/26/22 documented as of this encounter
--- OUTSIDE RECORDS SUMMARY | 2024-07-15 09:23 | XMS_ITS | Encounter Summary ---
Author Organization [facility] Healthcare Address [address] [place] [address] Care Team Providers Care Gis Database Administrator Name Role Phone Yancy Guerrero MD Primary Care Provider + [phone] Lupillo Reyes MD Unavailable [phone] Encounter Details Date Type Department Care Team (Late st Contact Info) Description 06/20/2024 Hospital Encounter [facility] ADMIT [address] [place] [address] Social History Tobacco Use Types Packs/Day Years Used Date Smoking Tobacco: Every Day Cigarettes 0.2 2 Smokeless Tobacco: Never Comments:Two packs per week for last 2 years Alcohol Use Standard Drinks/Week Comments Yes 0 (1 standard drink = 0.6 oz pur e alcohol) socially [facility] Utilities Answer Date Recorded In the past 12 months has [employer], gas, oil, or water company threatened to [...] often do you attend chur ch or restorationist services? More than 4 times per year 06/02/2023 Do you belong to any clubs o r organizations such as voodoo groups, unions, fraternal or athletic groups, or [...] place to sleep or slept in a intermediate (including now)? No 06/02/2023 Personal Safety Answer Date Recorded Have you ever been in or are you currently in a harmful physical or emotional relationship or is someone making you feel afraid or unsafe? 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 ROD PLACER Gender Identity Not on file Sexual Orientation [...] Encounter [facility] Operating Room [address] [place] [address] Rob Kline MD [address] [facility] [place] [address] 07/19/2024 12:00 PM CDT Anesthesia Event [facility] Operating Room [address] [place] [address] Nabila Martinez, YENI [address] [place] [address] [place] [address] 07/19/2024 12:00 PM CDT - 07/19/2024 1:00 PM CDT Surgery [facility] Operating Room [address] [place] [address] Rob Kline MD [address] [facility] [place] [address] URETEROSCOPY Scheduled Procedures Name Priority Associated Diagnoses Date/Ti co URETEROSCOPY Right kidney stone 07/19/2024 12:00 PM [...] documented as of this encounter Care Teams Gis Database Administrator Relationship Specialty Start Date End Date Yancy Guerrero MD [address] [place] [address] PCP - General 05/22/16 Lupillo Reyes MD [address] [address] Consulting Physician Orthopedic Surgery 07/26/22 documented as of this encounter
--- OUTSIDE RECORDS SUMMARY | 2024-07-15 09:23 | XMS_ITS | Clinical Summary ---
Author Organization [facility] Address [address] [facility] [place] [address] Phone Care Team Providers Care Date Pitter Name Role Phone Yancy Guerrero MD Primary [...] on file Legal Sex Female 4:27 AM TRIAGE REGISTER NURSE Gender Identity Not on file Sexual Orientation Not on file Occupation Industry Job Start Date Job End Date Not on file Not on file Not on file Not on file Last Filed Vital Signs Vital Sign Reading Time Taken Comments Blood Pressure 132/89 12/30/2016 11:52 AM TRIAGE REGISTER NURSE Pulse 92 12/30/2016 11:52 AM TRIAGE REGISTER NURSE Temperature 36.9 C (98.4 F) 01/29/2009 11:30 AM TRIAGE REGISTER NURSE Respiratory Rate 16 01/29/2009 11:30 AM TRIAGE REGISTER NURSE Oxygen Saturation 93% 01/29/2009 11:30 AM TRIAGE REGISTER NURSE Inhaled Oxygen Concentration - - Weight 76.7 kg (169 lb) 12/30/2016 11:52 AM TRIAGE REGISTER NURSE Height 167.6 cm (5' 6) 12/30/2016 11:52 AM TRIAGE REGISTER NURSE Body Mass Index 27.28 12/30/2016 11:52 AM TRIAGE REGISTER NURSE Plan of Treatment Health Maintenance Due Date [...] series) 2036 Medical Devices Implanted Type Area Radiology Therapist Device Identifier Shelf Expiration Date Model / Serial / Lot Sling Monarc [id number] Implanted:Qty: 1 on 01/28/2009 at [facility] Sling Pelvis PENDING SALE TO [facility] [employer] [id number] / / Procedures Procedure Name Priority Date/Time [...] ASSESSMENT: BI-RADS CATEGORY 1: Negative DICTATION LOCATION: [facility] Narrative 10/31/2019 3:53 PM CDT BILATERAL [...] ASSESSMENT: BI-RADS CATEGORY 1: Negative DICTATION LOCATION: [facility] Tod Dallas MD MAMMO ORDERABLES Final Result from Last 3 Months or Most Recently Relevant to Health Maintenance Insurance [place] [id number] POS II Advance Directives For more information, please contact: [phone] * Full Code (Latest Code Status on File) Date Activated Date Inactivated Comments 01/28/2009 9:06 PM 01/29/2009 4:29 PM * Full Code Date Activated Date Inactivated Comments 01/28/2009 7:38 PM 01/28/2009 9:06 PM * Full Code Date Activated Date Inactivated Comments 01/28/2009 2:46 PM 01/28/2009 7:38 PM Care Teams Date Pitter Relationship Specialty Start Date End Date Yancy Guerrero MD [address] [place] [phone] PCP - General Internal Medicine 09/22/14
--- OUTSIDE RECORDS SUMMARY | 2024-07-15 09:23 | XMS_ITS | Encounter Summary ---
Author Organization [facility] Address [address] [place] [address] Phone Care Team Providers Care Straw Hat Brusher Name Role Phone Yancy Guerrero MD Primary Care Provider + [phone] Lupillo Reyes MD Unavailable [phone] Encounter Details Date Type Department Care Team (Late st Contact Info) Description 06/24/2024 Telephone [facility] Cardiology [address] [facility] Advanced Medicine 8th [place] [address] [place] [address] Pat Calvo Social History Tobacco Use Types Packs/Day Years Used Date Smoking Tobacco: Every Day Cigarettes 0.2 2 Smokeless Tobacco: Never Comments:Two packs per week for last 2 years Alcohol Use Standard Drinks/Week Comments Yes 0 (1 standard drink = 0.6 oz pur e alcohol) socially [facility] Utilities Answer Date Recorded In the past 12 months has [employer], gas, oil, or water [employer] threatened to shut off services in your [...] week 06/02/2023 How often do you attend [facility] or islam services? More than 4 times per year 06/02/2023 Do you belong to any clubs o r organizations such as latter-day groups, unions, fraternal or athletic groups, or [...] place to sleep or slept in a assisted (including now)? No 06/02/2023 Personal Safety Answer Date Recorded Have you ever been in or are you currently in a harmful physical or emotional relationship or is someone making you feel afraid or unsafe? 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 HUMAN RESOURCES OPERATIONS MANAGER Gender Identity Not on file Sexual [...] CONSULT: general CALLER'S NAME: Rosalinda CALLER'S PAGER: [phone] PATIENT'S NAME: Camille Shultz : 1960 CAMPUS: [facility] PATIENT'S LOCATION: [facility] REASON FOR CONSULT: Management of Bradycardia ATTENDING PHYSICIAN: Dr. Steinberg documented in this encounter Plan of Treatment Upcoming Encounters Date Type Department Care Team (Late st Contact Info) Description 07/19/2024 12:00 PM CDT Hospital Encounter [facility] Operating Room [address] [place] [address] Rob Kline MD [address] [place] [address] 07/19/2024 12:00 PM CDT Anesthesia Event [facility] Operating Room [address] [place] [address] Nabila Martinez NP [address] [place] [address] [place] [address] 07/19/2024 12:00 PM CDT - 07/19/2024 1:00 PM CDT Surgery [facility] Operating Room [address] [place] [address] Rob Kline MD [address] [facility] [place] [address] URETEROSCOPY Scheduled Procedures Name Priority Associated Diagnoses [...] documented as of this encounter Care Teams Straw Hat Brusher Relationship Specialty Start Date End Date Yancy Guerrero MD [address] [place], [place] [id number] PCP - General 05/22/16 Lupillo Reyes MD [address] [facility] [address] [place] [address] Consulting Physician Orthopedic Surgery 07/26/22 documented as of this encounter
--- OUTSIDE RECORDS SUMMARY | 2024-07-15 09:23 | XMS_ITS | Encounter Summary ---
Author Organization [facility] Address [address] [place] [address] Care Team Providers Care Agricultural Aircraft Pilot Name Role Phone Yancy Guerrero MD Primary Care Provider + Encounter Details Date Type Department Care Team (Latest Contact Info) Description 03/10/2006 Outpatient Historical HIS [facility] Velázquez, [place] [address] [facility] [address] [place] [address] Lump or Mass in Breast (Primary Dx) Social History Tobacco Use Types Packs/Day Years Used Date Smoking Tobacco: Never Assessed Comments Unknown Sex and Gender Information Value Date Recorded Sex Assigned at Not on file Legal Sex Female 4:27 AM JEWEL HOLE FINISH OPENER Gender Identity Not on file Sexual Orientation Not on file documented as of this encounter Plan of Treatment Not on file documented as of this encounter Visit Diagnoses Diagnosis Lump or mass in breast- Primary documented in this encounter Care Teams Agricultural Aircraft Pilot Relationship Specialty Start Date End Date Yancy Guerrero MD [address] [place] [address] PCP - General Internal Medicine 09/22/14 documented as of this encounter
--- OUTSIDE RECORDS SUMMARY | 2024-07-15 09:23 | XMS_ITS | Encounter Summary ---
Author Organization [facility] Address [address] [facility] [address] [place] [address] Phone Care Team Providers Care School Health Aide Name Role Phone Yancy Guerrero MD Primary Care Provider + [phone] Lupillo Reyes MD Unavailable [phone] Encounter Details Date Type Department Care Team (Latest Contact Info) Description 04/10/2013 Orders Only [facility] Wendy Choudhary, ISAIAS [address] [facility] [address] [place], [place] [id number] Social History Tobacco Use Types Packs/Day Years Used Date Smoking Tobacco: Never Assessed Comments Unknown Sex and Gender Information Value Date Recorded Sex Assigned at Not on file Legal 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 CLERK CHECKER Gender Identity Not on file Sexual Orientation Not on file documented as of this encounter Plan of Treatment Upcoming Encounters Date Type Department Care Team (Late st Contact Info) Description 07/19/2024 12:00 PM CDT Hospital Encounter [facility] Operating Room [address] [place] [address] Rob Kline MD [address] [facility] [place] [address] 07/19/2024 12:00 PM CDT Anesthesia Event [facility] Operating Room [address] [place] [address] Nabila Martinez NP [address] [place] [address] [place] [address] 07/19/2024 12:00 PM CDT - 07/19/2024 1:00 PM CDT Surgery [facility] Operating Room [address] [place] [address] Rob Kline MD [address] [place] [place] [address] URETEROSCOPY Scheduled Procedures Name Priority Associated Diagnoses [...] COVID: Suspected 12/06/2019 12/06/2019 12/20/2019 3:05 AM CLERK CHECKER COVID: Suspected 01/14/2021 01/14/2021 01/14/2021 9:43 PM CLERK CHECKER COVID: Suspected 01/17/2021 01/17/2021 01/18/2021 5:33 AM CLERK CHECKER COVID: Suspected 08/06/2021 08/06/2021 08/07/2021 3:05 AM CDT COVID: Suspected 08/06/2021 08/06/2021 08/07/2021 3:18 AM CDT COVID19 08/06/2021 08/06/2021 08/16/2021 3:05 AM CDT COVID: Recovered Comment:Added based on recent COVID infection. 08/16/2021 08/16/2021 12/14/2021 3:05 AM C DT COVID: Suspected 09/23/2021 09/23/2021 09/23/2021 10:56 PM CDT COVID: Suspected 09/29/2021 09/29/2021 09/29/2021 10:32 PM CDT COVID: Suspected 12/24/2021 12/25/2021 12/25/2021 3:05 AM CLERK CHECKER COVID: Suspected 12/25/2021 12/25/2021 12/26/2021 3:05 AM CLERK CHECKER COVID: Suspected 12/25/2021 12/25/2021 12/26/2021 3:49 PM CLERK CHECKER MDR gram neg/ESBL 2024 2024 documented as of this encounter Care Teams School Health Aide Relationship Specialty Start Date End Date Yancy Guerrero MD [address] [place] [address] PCP - General 05/22/16 Lupillo Reyes MD [address] [address] Consulting Physician Orthopedic Surgery 07/26/22 documented as of this encounter
--- OUTSIDE RECORDS SUMMARY | 2024-07-15 09:23 | XMS_ITS | Encounter Summary ---
Author Organization [facility] Address [address] [place] [address] Care Team Providers Care Recovery Room Rn Name Role Phone Yancy Guerrero MD Primary Care Provider + Encounter Details Date Type Department Care Team (Latest Contact Info) Description 05/26/2005 Outpatient Historical HIS [facility] Tod Cifuentes MD [address] [facility] [address] [place] [address] Other Screening Mammogram (Primary Dx) Social History Tobacco Use Types Packs/Day Years Used Date Smoking Tobacco: Never Assessed Comments Unknown Sex and Gender Information Value Date Recorded Sex Assigned at Not on file Legal Sex Female 4:27 AM MANAGER OF TRAINING AND DEVELOPMENT Gender Identity Not on file Sexual Orientation Not on file documented as of this encounter Plan of Treatment Not on file documented as of this encounter Visit Diagnoses Diagnosis Other screening mammogram- Primary documented in this encounter Care Teams Recovery Room Rn Relationship Specialty Start Date End Date Yancy Guerrero MD [address] [place] [address] PCP - General Internal Medicine 09/22/14 documented as of this encounter
--- OUTSIDE RECORDS SUMMARY | 2024-07-15 09:23 | XMS_ITS | Encounter Summary ---
Author Organization [facility] Address [address] [place] [address] Care Team Providers Care Marine Gear Keeper Name Role Phone Yancy Guerrero MD Primary Care Provider + Encounter Details Date Type Department Care Team (Latest Contact Info) Description 05/02/2003 Outpatient Historical HIS [facility] Tod Cifuentes MD [address] [facility] [address] [place] [address] SCREENING MAMM-MAILG NEOPL-OTHER (Primary Dx) Social History Tobacco Use Types Packs/Day Years Used Date Smoking Tobacco: Never Assessed Comments Unknown Sex and Gender Information Value Date Recorded Sex Assigned at Not on file Legal Sex Female 4:27 AM GRAVEL ROOFER Gender Identity Not on file Sexual Orientation Not on file documented as of this encounter Plan of Treatment Not on file documented as of this encounter Visit Diagnoses Diagnosis Other screening mammogram- Primary documented in this encounter Care Teams Marine Gear Keeper Relationship Specialty Start Date End Date Yancy Guerrero MD [address] [place] [address] PCP - General Internal Medicine 09/22/14 documented as of this encounter
--- OUTSIDE RECORDS SUMMARY | 2024-07-15 09:23 | XMS_ITS | Encounter Summary ---
Author Organization [facility] Address [address] [place] [address] Care Team Providers Care Sound Equipment Mechanic Name Role Phone Yancy Guerrero MD Primary Care Provider + Encounter Details Date Type Department Care Team (Latest Contact Info) Description 05/10/2004 Outpatient Historical HIS [facility] Tod Cifuentes MD [address] [facility] [address] [place] [address] SCREENING MAMM-MAILG NEOPL-OTHER (Primary Dx) Social History Tobacco Use Types Packs/Day Years Used Date Smoking Tobacco: Never Assessed Comments Unknown Sex and Gender Information Value Date Recorded Sex Assigned at Not on file Legal Sex Female 4:27 AM SEWER PIPE LAYER HELPER Gender Identity Not on file Sexual Orientation Not on file documented as of this encounter Plan of Treatment Not on file documented as of this encounter Visit Diagnoses Diagnosis Other screening mammogram- Primary documented in this encounter Care Teams Sound Equipment Mechanic Relationship Specialty Start Date End Date Yancy Guerrero MD [address] [place] [address] PCP - General Internal Medicine 09/22/14 documented as of this encounter
--- OUTSIDE RECORDS SUMMARY | 2024-07-15 09:23 | XMS_ITS | CONTINUITY OF CARE DOCUMENT ---
Author Name emerald corbin Address Unknown Organization [facility] Address [address] [place] [address] [address] [place] [address] Phone [phone] Care Team Providers Care White Spooler Name Role Phone Prabhu ROSARIO, Tha Unavailable INSURANCE PROVIDERS Payer name Policy type / Coverage type Giovanny red republican ID LESIA [facility] [employer] [id number]
--- NOTE | 2024-07-16 09:27 | PC.NURSE ---
Discharge call back completed. Left message for return call to facility.
== END 2024-07-13 14:45 | disposition home or self-care (01) ==
LOC: CHSED 23:01 → CHS2ND 07-13 12:33
PROVIDERS: Admitting Provider Internal Medicine; Emergency Provider Emergency Medicine; PCP Internal Medicine; Visit Provider Internal Medicine
DX: F10.929 Alcohol use, unspecified with intoxication, unspecified (principal); Y90.7 Blood alcohol level of 200-239 mg/100 ml; N30.01 Acute cystitis with hematuria; E86.0 Dehydration; E87.6 Hypokalemia; E87.20 Acidosis, unspecified; I10 Essential (primary) hypertension; F41.9 Anxiety disorder, unspecified; F17.200 Nicotine dependence, unspecified, uncomplicated; Z79.2 Long term (current) use of antibiotics; Z79.899 Other long term (current) drug therapy; Z87.42 Personal history of other diseases of the female genital tract; Z90.710 Acquired absence of both cervix and uterus
CPT/HCPCS: 36415; 70450; 71045; 80053; 81001; 82077; 82948; 83605; 84484; 85025; 87040; 87086; 87181; 93005; 96361; 96365; 96374; 99285; A9270; G0378; J0696; J2060; J7030

== ENCOUNTER 2024-07-18 10:32 | Outpatient (CLI) | payer OTHER, SELFPAY ==
[2024-07-18 10:51] LABS: Add Urine Microscopic? YES; Appearance Urine Clear (Clear); Bilirubin Urine Negative (Negative); Blood Urine 3+ (Negative); Color Urine Yellow (Yellow); Glucose Urine UA Negative (Negative); Ketones Urine Negative (Negative); Leukocyte Esterase Ur 2+ (Negative); Nitrate Urine Positive (Negative); Protein Urine 2+ (Negative); Urobilinogen Urine 0.2 mg/dL (0.2-1.0)
[2024-07-18 10:53] LABS: Basophils Absolute Auto 0.02 K/mm3 (0.00-0.10); Basophils Percent Auto 0.2 % (0.0-1.0); Eosinophils Absolute Auto 0.15 K/mm3 (0.02-0.50); Eosinophils Percent Auto 1.8 % (1.0-6.0); Hematocrit 43.5 % (35.0-49.0); Hemoglobin 13.9 g/dL (12.0-15.0); Immature Granulocyte Absolute 0.02 K/mm3 (0.00-0.00); Immature Granulocyte Percent A 0.2 % (0.0-0.0); Immature Platelet Fraction Pct 1.6 % (1.0-7.0); Lymphocytes Absolute Auto 1.91 K/mm3 (1.10-4.50); Lymphocytes Percent Auto 23.5 % (18.0-42.0); Mean Platelet Volume 9.4 fl (9.2-11.8); Monocytes Absolute Auto 0.44 K/mm3 (0.10-0.90); Monocytes Percent Auto 5.4 % (2.0-11.0); Neutrophils Percent Auto 68.9 % (50.0-70.0); Platelet Count Result 534 K/mm3 (150-420); Red Blood Count 4.63 M/mm3 (4.20-5.40); Red Cell Distribution Width 13.3 % (11.6-14.4); White Blood Count 8.1 K/mm3 (4.8-10.8)
[2024-07-18 10:59] LABS: Bacteria Urine 1+ /hpf; RBC Urine 21-50 /hpf (0-2); Squamous Epithelial Cell Urine Few /hpf (Few); WBC Urine 31-50 /hpf (0-3)
[2024-07-18 11:32] LABS: Alanine Aminotransferase 21 U/L (6-35); Albumin Level 4.3 g/dL (3.5-5.1); Alkaline Phosphatase 100 U/L (38-126); Anion Gap 9 mmol/L (4-12); Aspartate Amino Transferase 33 U/L (14-36); Bilirubin,Total 0.5 mg/dL (0.2-1.3); Blood Urea Nitrogen 15 mg/dL (7-17); Calcium 9.9 mg/dL (8.4-10.2); Carbon Dioxide 25 mmol/L (22-30); Chloride 107 mmol/L (98-107); Estimated Glomerular Filt Rate > 60; Glucose 173 mg/dL (65-110); Osmolality Calculated 296 mOsm/kg (285-295); Potassium 4.6 mmol/L (3.4-5.0); Sodium 141 mmol/L (137-145); Total Protein 7.3 g/dL (6.3-8.2)
--- OUTSIDE RECORDS SUMMARY | 2024-07-18 11:35 | XMS_ITS | Encounter Summary ---
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 Gender Identity Not on file Sexual Orientation Not on file documented as of this encounter Plan of Treatment Upcoming Encounters Date Type Department Care Team (Late st Contact Info) Description 07/19/2024 12:00 PM CDT Hospital Encounter [facility] Operating Room [address] [place] [address] Rob Kline MD [address] [place] [address] 07/19/2024 12:00 PM CDT Anesthesia Event [facility] Operating Room [address] [place] [address] Nabila Martinez, YENI [address] [place] [address] [place] [address] 07/19/2024 12:00 PM CDT - 07/19/2024 1:00 PM CDT Surgery [facility] Operating Room [address] [place] [address] Rob Kline MD [address] [facility] [place] [address] URETEROSCOPY Scheduled Procedures Name Priority Associated Diagnoses [...] documented as of this encounter Care Teams Material Requisitioner Relationship Specialty Start Date End Date Yancy Guerrero MD [address] [place] [address] PCP - General 05/22/16 Lupillo Reyes MD [address] [address] Consulting Physician Orthopedic Surgery 07/26/22 documented as of this encounter
--- OUTSIDE RECORDS SUMMARY | 2024-07-18 11:35 | XMS_ITS | Encounter Summary ---
Author Organization [facility] [facility] Address [address] [place] [address] Phone Care Team Providers Care Assessment Nurse Name Role Phone Yancy Guerrero MD Primary Care Provider + [phone] Lupillo Reyes MD Unavailable [phone] Encounter Details Date Type Department Care Team (Late st Contact Info) Description 06/28/2024 Results Follow-Up [employer] [facility] ([facility]) - [facility] Urology [address] [facility] Advanced Medicine 11th [place] [address] [place] [address] Chelsea Haywood MD [address] [facility] [address] [place] [address] Urine culture Urine, bladder Social History Tobacco Use Types Packs/Day Years Used Date Smoking Tobacco: Every Day Cigarettes 0.2 2 Smokeless Tobacco: Never Comments:Two packs per week for last 2 years Alcohol Use Standard Drinks/Week Comments Yes 0 (1 standard drink = 0.6 oz pur e alcohol) socially [facility] Utilities Answer Date Recorded In the past 12 months has [employer], gas, oil, or water [employer] threatened to shut off services in your [...] on file 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 Gender Identity Not on file Sexual Orientation Not on file documented as of this encounter Plan of Treatment Upcoming Encounters Date Type Department Care Team (Late st Contact Info) Description 07/19/2024 12:00 PM CDT Hospital Encounter [facility] Operating Room [address] [place] [address] Rob Kline MD [address] [facility] [place] [address] 07/19/2024 12:00 PM CDT Anesthesia Event [facility] Operating Room [address] [place] [address] Nabila Martinez, YENI [address] [place] [address] [place] [address] 07/19/2024 12:00 PM CDT - 07/19/2024 1:00 PM CDT Surgery [facility] Operating Room [address] [place] [address] Rob Kline MD [address] [facility] [place] [address] URETEROSCOPY Scheduled Procedures Name Priority Associated Diagnoses [...] documented as of this encounter Care Teams Assessment Nurse Relationship Specialty Start Date End Date Yancy Guerrero MD [address] [place] [address] PCP - General 05/22/16 Lupillo Reyes MD [address] [address] Consulting Physician Orthopedic Surgery 07/26/22 documented as of this encounter
--- OUTSIDE RECORDS SUMMARY | 2024-07-18 11:36 | XMS_ITS | Encounter Summary ---
Author Organization [facility] Address [address] [place] [address] Phone Care Team Providers Care Cook Chill Technician Name Role Phone Yancy Guerrero MD Primary Care Provider + [phone] Lupillo Reyes MD Unavailable [phone] Encounter Details Date Type Department Care Team (Latest Contact Info) Description 04/28/2023 Orders Only [facility] Wendy Choudhary, ISAIAS [address] [facility] [address] [place], [place] [id number] Social History Tobacco Use Types Packs/Day Years [...] on file 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 Gender Identity Not on file Sexual Orientation Not on file documented as of this encounter Plan of Treatment Upcoming Encounters Date Type Department Care Team (Late st Contact Info) Description 07/19/2024 12:00 PM CDT Hospital Encounter [facility] Operating Room [address] [place] [address] Rob Kline MD [address] [place] [address] 07/19/2024 12:00 PM CDT Anesthesia Event [facility] Operating Room [address] [place] [address] Nabila Martinez NP [address] [place] [address] [place] [address] 07/19/2024 12:00 PM CDT - 07/19/2024 1:00 PM CDT Surgery [facility] Operating Room [address] [place] [address] Rob Kline MD [address] [facility] [place] [address] URETEROSCOPY Scheduled Procedures Name Priority Associated Diagnoses [...] documented as of this encounter Care Teams Cook Chill Technician Relationship Specialty Start Date End Date Yancy Guerrero MD [address] [place] [address] PCP - General 05/22/16 Lupillo Reyes MD [address] [address] Consulting Physician Orthopedic Surgery 07/26/22 documented as of this encounter
--- OUTSIDE RECORDS SUMMARY | 2024-07-18 11:36 | XMS_ITS | Patient Health Record ---
Author Organization [facility] Address [address] [facility] [address] [place] [address] Care Team Providers Care Night Filler Name Role Phone Yancy Guerrero MD Primary Care Provider Arcelia Mullins Unavailable [phone] Reason For Referral No Information Social History [...] Severe recurrent major depression without psychotic features (50169651) Major depressive disorder, recurrent severe without psychotic features (F33.2) Active confirmed Problem Generalized anxiety disorder (55018975) Generalized anxiety disorder (F41.1) Active confirmed Problem Posttraumatic stress disorder (26402078) PTSD (post-traumatic stress disorder) (F43.10) Active confirmed Problem Alcohol abuse (F10.10) Active confirmed Encounters Encounter Location Date Provider Diagnosis [facility] [employer] [address] [place] [address] 01/18/2024 Arcelia Tripp Major depressive disorder, recurrent severe without psychotic features F33.2 ; Generalized anxiety disorder F41.1 and Alcohol abuse F10.10 [facility] [address] [facility] [address] [place] [address] 01/23/2024 Arcelia Tripp Major depressive disorder, recurrent severe without psychotic features F33.2 ; Generalized anxiety disorder F41.1 ; Alcohol abuse F10.10 and PTSD (post-traumatic stress disorder) F43.10 [facility] [address] [facility] [address] [place] [address] 02/02/2024 Arcelia Tripp [facility] [address] [place] [address] 02/28/2024 Arcelia Tripp Major depressive disorder, recurrent severe without psychotic features F33.2 ; Generalized anxiety disorder F41.1 ; Alcohol abuse F10.10 and PTSD (post-traumatic stress disorder) F43.10 [employer] [facility] [address] [facility] [address] [place] [address] 02/13/2024 Arcelia Tripp [facility] [address] [facility] [address] [place] [address] 02/26/2024 Arcelia Tripp [facility] [address] [address] 03/06/2024 Arcelia Tripp Assessments Encounter Date Diagnosis (ICD Code) Assessment Notes Treatment Notes Treatment Clinical Notes Section Notes 01/18/2024 Major depressive disorder, recurrent severe without psychotic features (ICD-10 - F33.2) Marital Status: Living Arrangement: lives alone Children: 2 daughters Support System: daughters Highest Level of Education: completed college 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 History: Denied Legal History: DUI, 04/26/22 Family History of MH/RADHAMES: alcohol, anxiety, PTSD, bipolar Physical Medical Conditions: hypertension, afib, elevated lipids Spiritual Beliefs: Pentecostalism Suicidal Ideation/Self Harm: Denied Homicidal Ideation: Denied [...] weekly support group meetings, like AA or [employer], to sustain sobriety and develop a support [...] Level of Education: completed college 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 2. Family-related Stress - [...] of local support groups, including [employer] and [employer], for additional support. 2. Family-related Stress - [...] to address underlying issues. Utilize a daily nurse discharge planner incorporating affirmations and goals to foster [...] of the potential tear. Consult with an custom framing specialist for a comprehensive evaluation and to [...] to address underlying issues. Utilize a daily nurse discharge planner incorporating affirmations and goals to foster [...] of the potential tear. Consult with an custom framing specialist for a comprehensive evaluation and to [...] a list of local support groups, including [employer] and [employer], for additional support. 2. Family-related Stress - [...] to address underlying issues. Utilize a daily nurse discharge planner incorporating affirmations and goals to foster [...] of the potential tear. 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 2. Family-related Stress - [...] to address underlying issues. Utilize a daily nurse discharge planner incorporating affirmations and goals to foster [...] of the potential tear. Consult with an custom framing specialist for a comprehensive evaluation and to [...] Insured Coverage Start Date Coverage End Date [facility] [address] [place] [phone] [id number] Camille Hendricks Self - patient is the [...]
--- OUTSIDE RECORDS SUMMARY | 2024-07-18 11:36 | XMS_ITS | Encounter Summary ---
Author Organization [facility] Address [address] [place] [address] Phone Care Team Providers Care Director Of Creative Services Name Role Phone Yancy Guerrero MD Primary Care Provider + [phone] Lupillo Reyes MD Unavailable [phone] Encounter Details Date Type Department Care Team (Latest Contact Info) Description 04/13/2023 Orders Only [facility] Wendy Choudhary, ISAIAS [address] [facility] [address] [place], [place] [id number] Social History Tobacco Use Types Packs/Day Years [...] on file Legal 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 Gender Identity Not on file Sexual Orientation Not on file documented as of this encounter Plan of Treatment Upcoming Encounters Date Type Department Care Team (Late st Contact Info) Description 07/19/2024 12:00 PM CDT Hospital Encounter [facility] Operating Room [address] [place] [phone] Rob Kline MD [address] [place] [address] 07/19/2024 12:00 PM CDT Anesthesia Event [facility] Operating Room [address] [place] [phone] Nabila Martinez NP [address] [place] [address] [place] [address] 07/19/2024 12:00 PM CDT - 07/19/2024 1:00 PM CDT Surgery [facility] Operating Room [address] [place] [address] Rob Kline MD [address] [facility] [place] [address] URETEROSCOPY Scheduled Procedures Name Priority Associated Diagnoses [...] documented as of this encounter Care Teams Director Of Creative Services Relationship Specialty Start Date End Date Yancy Guerrero MD [address] [place] [address] PCP - General 05/22/16 Lupillo Reyes MD [address] [address] Consulting Physician Orthopedic Surgery 07/26/22 documented as of this encounter
--- OUTSIDE RECORDS SUMMARY | 2024-07-18 11:36 | XMS_ITS | Clinical Summary ---
Author Organization 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 Gender Identity Not on file Sexual Orientation Not on file Occupation Industry Job Start Date Job End Date Not on file Not on file Not on file Not on file Last Filed Vital Signs Vital Sign Reading Time Taken Comments Blood Pressure 132/89 12/30/2016 11:52 AM CRACKER AND COOKIE MACHINE OPERATOR Pulse 92 12/30/2016 11:52 AM CRACKER AND COOKIE MACHINE OPERATOR Temperature 36.9 C (98.4 F) 01/29/2009 11:30 AM CRACKER AND COOKIE MACHINE OPERATOR Respiratory Rate 16 01/29/2009 11:30 AM CRACKER AND COOKIE MACHINE OPERATOR Oxygen Saturation 93% 01/29/2009 11:30 AM CRACKER AND COOKIE MACHINE OPERATOR Inhaled Oxygen Concentration - - Weight 76.7 kg (169 lb) 12/30/2016 11:52 AM CRACKER AND COOKIE MACHINE OPERATOR Height 167.6 cm (5' 6) 12/30/2016 11:52 AM CRACKER AND COOKIE MACHINE OPERATOR Body Mass Index 27.28 12/30/2016 11:52 AM CRACKER AND COOKIE MACHINE OPERATOR Plan of Treatment Health Maintenance [...] series) 2036 Medical Devices Implanted Type Area Tricot Knitter Device Identifier Shelf Expiration Date Model / Serial / Lot Sling Monarc [id number] Implanted:Qty: 1 on 01/28/2009 at [facility] Sling Pelvis [facility] [employer] [id number] / / Procedures Procedure Name Priority Date/Time [...] ASSESSMENT: BI-RADS CATEGORY 1: Negative DICTATION LOCATION: [facility] Narrative 10/31/2019 3:53 PM CDT BILATERAL [...] ASSESSMENT: BI-RADS CATEGORY 1: Negative DICTATION LOCATION: [facility] Tod Dallas MD MAMMO ORDERABLES Final Result from Last 3 Months or Most Recently Relevant to Health Maintenance Insurance [employer] [id number] POS II Advance Directives For more information, please contact: [phone] * Full Code (Latest Code Status on File) Date Activated Date Inactivated Comments 01/28/2009 9:06 PM 01/29/2009 4:29 PM * Full Code Date Activated Date Inactivated Comments 01/28/2009 7:38 PM 01/28/2009 9:06 PM * Full Code Date Activated Date Inactivated Comments 01/28/2009 2:46 PM 01/28/2009 7:38 PM Care Teams Cyber Analyst Relationship Specialty Start Date End Date Yancy Guerrero MD [address] [place] [phone] PCP - General Internal Medicine 09/22/14
--- OUTSIDE RECORDS SUMMARY | 2024-07-18 11:36 | XMS_ITS | Encounter Summary ---
Author Organization [facility] Address [address] [place] [address] Phone Care Team Providers Care Soil Tester Name Role Phone Yancy Guerrero MD Primary Care Provider + [phone] Lupillo Reyes MD Unavailable Encounter Details Date Type Department Care Team (Late st Contact Info) Description 06/24/2024 Documentation [facility] Urology [address] [facility] [address] [place] [address] Chelsea Haywood MD [address] [address] [place], [place] [id number] Social History Tobacco Use Types Packs/Day Years Used Date Smoking Tobacco: Every Day Cigarettes 0.2 2 Smokeless Tobacco: Never Comments:Two packs per week for last 2 years Alcohol Use Standard Drinks/Week Comments Yes 0 (1 standard drink = 0.6 oz pur e alcohol) socially [facility] Utilities Answer Date Recorded In the past 12 months has [employer] electric, gas, oil, or water company threatened [...] often do you attend chur ch or samaritan services? More than 4 times per year [...] on file Legal 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 REGULAR SENIOR CARE PROVIDER Gender Identity Not on file Sexual Orientation [...] diff and platelet, CMP Fax Labs To: [facility] ([phone]) Call For a Change in Clinical Status, Critical/Abnormal Results, or Order Verification: [facility] ([phone]) OPAT Summary of Consult Summary of Consult: 64 y.o. female with pmh anxiety/depression, AF (Xarelto), HTN, HLD transferred from [facility] for higher level of care. Had Right [...] CDT Hospital Encounter [facility] Operating Room [address] [place] [phone] Rob Kline MD [address] [facility] [place] [address] 07/19/2024 12:00 PM CDT Anesthesia Event [facility] Operating Room [address] [place] [phone] Nabila Martinez NP [address] [place] [address] [place] [address] 07/19/2024 12:00 PM CDT - 07/19/2024 1:00 PM CDT Surgery [facility] Operating Room [address] [place] [address] Rob Kline MD [address] [facility] [place] [address] URETEROSCOPY Scheduled Procedures Name Priority Associated Diagnoses [...] documented as of this encounter Care Teams Soil Tester Relationship Specialty Start Date End Date Yancy Guerrero MD [address] [place] [address] PCP - General 05/22/16 Lupillo Reyes MD [address] [facility] [address] [place] [address] Consulting Physician Orthopedic Surgery 07/26/22 documented as of this encounter
--- OUTSIDE RECORDS SUMMARY | 2024-07-18 11:36 | XMS_ITS | Encounter Summary ---
Author Organization [facility] Address [address] [place] [address] Care Team Providers Care Mint Machine Operator Name Role Phone Yancy Guerrero MD Primary Care Provider + Encounter Details Date Type Department Care Team (Latest Contact Info) Description 05/10/2004 Outpatient Historical [facility] Tod Cifuentes MD [address] [facility] [address] [place] [address] SCREENING MAMM-MAILG NEOPL-OTHER (Primary Dx) Social History Tobacco Use Types Packs/Day Years Used Date Smoking Tobacco: Never Assessed Comments Unknown Sex and Gender Information Value Date Recorded Sex Assigned at Not on file Legal Sex Female 4:[address] SCAN TECH Gender Identity Not on file Sexual Orientation Not on file documented as of this encounter Plan of Treatment Not on file documented as of this encounter Visit Diagnoses Diagnosis Other screening mammogram- Primary documented in this encounter Care Teams Mint Machine Operator Relationship Specialty Start Date End Date Yancy Guerrero MD [address] [place] [address] PCP - General Internal Medicine 09/22/14 documented as of this encounter
--- OUTSIDE RECORDS SUMMARY | 2024-07-18 11:36 | XMS_ITS | Referral Summary ---
Author Organization [facility] Address [address] [place] [address] Care Team Providers Care Group Social Worker Name Role Phone Yancy Guerrero MD Primary Care Provider + [phone] Lupillo Reyes MD Unavailable [phone] Encounters Date Type Department Care Team Description 07/11/2024 Telephone [facility] Surgery [address] [place] [address] Cassie Bee EMT 07/09/2024 Telephone [facility] Urology [address] [place] [address] Office Building [address] [place] [address] Glenis Degroot LPN 07/09/2024 Telephone [facility] Surgery [address] [place] [address] Armida Hughes CMA 07/09/2024 2:00 PM CDT Pre-Admission Testing [facility] Pre Anesthesia Testing [address] [facility] [address], [address] [place] [address] 07/01/2024 Orders Only [facility] Urology [address] [place] [address] Office Building [address] [place] [address] Chelsea Haywood MD Urinary tract infection without hematuria, site unspecified (Primary Dx) 06/28/2024 Results Follow-Up [facility] Urology [address] [place] [address] 11th [place] [address] [place] [address] Chelsea Haywood MD Urine culture Urine, bladder 06/28/2024 Telephone [facility] Urology [address] [facility] 11th [place] [address] [place] [address] Erica Moore B.A. 06/27/2024 Telephone [facility] Case Management [address] [place] [address] Dulce Maria Benites RN 06/26/2024 Orders Only [facility] Home Care Services [address] [place] [address] Laurie Tierney, [facility] 06/20/2024 10:10 PM CDT - 06/26/2024 6:14 PM CDT Hospital Encounter [address] [address] Carlos Palomares MD Baiocco, Joseph, MD Sepsis without acute organ dysfunction, due to unspecified organism (HCC) (Primary Dx); Kidney stone; Bradycardia; Pyelonephritis of right kidney Discharge Disposition: Discharge to home, home health skilled care 06/24/2024 Telephone [facility] Cardiology [address] [facility] 8th [place] [address] [place] [address] Pat Calvo 06/24/2024 Documentation [facility] Urology [address] [facility] Office Building [address] [place] [address] Chelsea Haywood MD 2024 2:38 PM CDT Anesthesia Event [facility] Operating Room [address] [place] [phone] Jyothi Roque MD Jablonski, Melody A., NP 2024 2:02 PM CDT - 2024 3:07 PM CDT Surgery [facility] Operating Room [address] [place] [address] Chelsea Haywood MD CYSTOSCOPY PLACEMENT URETERAL STENT 06/20/2024 Hospital Encounter [facility] ADMIT [address] [place] [address] 06/17/2024 Telephone [facility] Orthopaedic Surgery [address] [place] [address] 2nd Floor [address] [place] [address] Cheryl Trujillo RN Intake Form 06/04/2024 Telephone [facility] Orthopaedic Surgery [address] [place] [address] 2nd Floor [address] [place] [address] Cheryl Trujillo RN from Last [...] anxiety/depression, AF (Xarelto), HTN, HLD transferred from [facility] for higher level of care. Had Right [...] 03/21/2023 Assessment & Plan (03/23/2023 7:20 AM PRESSURE VESSEL INSPECTOR): Atenolol resumed with reasonable control Continue to hold Dyazide and losartan until outpatient follow-up HLD (hyperlipidemia) 03/21/2023 Assessment & Plan (03/22/2023 2:05 PM PRESSURE VESSEL INSPECTOR): Continue atorvastatin Transaminases have normalized. Depression with anxiety 03/21/2023 Assessment & Plan (03/23/2023 7:20 AM PRESSURE VESSEL INSPECTOR): Cont citalopram 40mg daily and lorazepam 0.5mg BID Resolved Problems Problem Noted Date Diagnosed Date Resolved Date Hypotension 03/21/2023 03/22/2023 Assessment & Plan (03/21/2023 8:09 PM PRESSURE VESSEL INSPECTOR): - Presenting with BP 80/50s in setting of reduced PO intake and ongoing BP meds - (+)orthostatics on presentation - Hold BP meds, check orthostatics in AM - Restart meds as needed Headache 03/21/2023 03/22/2023 Assessment & Plan (03/21/2023 8:10 PM PRESSURE VESSEL INSPECTOR): - Tylenol ordered; avoid NSAIDs Weakness 03/21/2023 03/23/2023 Assessment & Plan (03/22/2023 2:06 PM PRESSURE VESSEL INSPECTOR): TSH and B12 within acceptable limits. Monitor symptoms as blood pressure and renal function recover Nausea 03/21/2023 03/22/2023 Assessment & Plan (03/21/2023 8:10 PM PRESSURE VESSEL INSPECTOR): - Zofran ordered SUN (acute kidney injury) 03/21/2023 Assessment & Plan (03/23/2023 7:19 AM PRESSURE VESSEL INSPECTOR): Creatinine improved today Check renal function and electrolytes in outpatient follow-up Continue to hold Dyazide and losartan until outpatient follow-up. Abnormal transaminases 03/21/202303/22 Assessment & Plan (03/21/2023 8:11 PM PRESSURE VESSEL INSPECTOR): - Elevated in setting of recent viral infection and presumed hypovolemia - Trend in AM - if continues to be elevated consider hepatitis panel/HIV given occupation history Complete rupture of rotator cuff 07/13/2022 03/21/2023 Acute medial meniscus tear of left knee 06/25/2020 03/21/2023 Overview (06/25/2020): Added automatically from request for surgery [id number] Axillary mass, left 12/30/2016 03/21/19 24 Lipoma [...] = 0.6 oz pur e alcohol) socially [employer] Utilities Answer Date Recorded In the past 12 months has [employer], gas, oil, or water company threatened to [...] often do you attend chur ch or druze services? More than 4 times per year [...] place to sleep or slept in a mcfp (including now)? No 06/02/2023 Personal Safety Answer Date Recorded Have you ever been in or are you currently in a harmful physical or emotional relationship or is someone making you feel afraid or unsafe? 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 PRESSURE VESSEL INSPECTOR Gender Identity Not on file Sexual [...] Description 07/19/2024 12:00 PM CDT Hospital Encounter [facility] Operating Room [address] [place] [address] Rob Kline MD [address] [facility] [place] [address] 07/19/2024 12:00 PM CDT Anesthesia Event [facility] Operating Room [address] [place] [address] Nabila Martinez NP [address] [place] [address] [place] [address] 07/19/2024 12:00 PM CDT - 07/19/2024 1:00 PM CDT Surgery [facility] Operating Room [address] [place] [address] Rob Kline MD [address] [facility] [place] [address] URETEROSCOPY Scheduled Procedures Name Priority Associated Diagnoses Date/Ti ca URETEROSCOPY Right kidney stone 07/19/2024 12:00 PM CDT CYSTOSCOPY PLACEMENT URETERA L STENT Right kidney stone 07/19/2024 12:00 PM CDT REMOVAL URETERAL STONE Right kidney stone 07/19/2024 12:00 PM CDT Medical Devices Implanted Type Area Brazing Machine Tender Device Identifier Shelf Expiration Date Model / Serial / Lot [employer] Universa 6fr 24cm Radiopaque Graduate Firm Monofilament Tether [id number] - [id number] Implanted:Qty: 1 on 2024 by Chelsea Haywood MD at [facility] Stent Right: Ureter [employer] [id number] 12/28/2026 [id number] / / [id number] [employer] Corkscrew Tigertail 5.5mm 14.7[address] Drive Mechanism Vent 2 Square [id number] - [id number] Implanted:Qty: 1 on 07/26/2022 by Lupillo Reyes MD at [facility] Right: Shoulder [employer] 02/13/2024 AR-1927B CFT / / [id number] [employer] Corkscrew Tigertail 5.5mm 14.7mm Drive Mechanism Vent 2 Square [id number] - [id number] Implanted:Qty: 1 on 07/26/2022 by Lupillo Reyes MD at [facility] Right: Shoulder [employer] 11/12/2024 AR-1927B CFT / / [id number] [employer] Swivelock C 4.75mm 19.1mm Closed Eyelet Vent [place] Suture Ar-2324bcc - [id number] Implanted:Qty: 1 on 07/26/2022 by Lupillo Reyes MD at [facility] Right: Shoulder [employer] 02/12/2026 AR-2324B CC / / [id number] Procedures Procedure Name Priority Date/Time Associated Diagnosis [...] 5:00 PM CDT CALCIUM, IONIZED STAT 2024 5:0 0 PM CDT PHOSPHORUS STAT 2024 5:00 PM [...] CDT Kidney stone Case Notes Poc; Elian [phone] CYSTOSCOPY PLACEMENT URETERAL STENT 2024 2:43 PM CDT Kidney stone Case Notes Poc; Elian [phone] EGFR STAT 2024 1:07 PM CDT LACTATE [...] MD LAB BLOOD ORDERABLES Final Res ult [facility] Department [place] [address] * (ABNORMAL) CBC without differential (06/25/2024 8:45 PM CDT) WBC 7.87 3.80 - 9.90 K/cumm Hgb 11.0(L) 11.9 - 15.5 g/dL [facility] Hct 32.9(L) 35.6 - 45.5 % [facility] Plt 385 150 - 400 K/cumm [facility] MPV 10.6 9.1 - 12.3 fL [facility] RBC 3.50(L) 3.90 - 5.20 M/cumm [facility] MCV 94.0 81.3 - 96.4 fL [facility] MCH 31.4 27.1 - 33.3 pg [facility] MCHC 33.4 32.3 - 35.7 g/dL [facility] RDW CV 14.4 11.1 - 14.9 % [facility] RDW SD 49.4(H) 35.7 - 48.1 fL [facility] NRBC abs 0.00 0.00 - 0.01 K/cumm [facility] Blood 06/25/2024 8:45 PM CDT 06/25/2024 9:59 PM CDT Braeden Alcantar MD LAB BLOOD ORDERABLES Final Res ult [facility] [place] [address] * Phosphorus (06/25/2024 8:45 PM CDT) [facility] Phosphorus, pl 2.8 2.3 - 4.5 mg/dL Blood 06/25/2024 8:45 PM CDT 06/25/2024 9:43 PM CDT Braeden Alcantar MD LAB BLOOD ORDERABLES Final Res ult Performing Organization Address City/[facility] Co de Phone Number [facility] [place] [address] * Magnesium (06/25/2024 8:45 PM CDT) [facility] Magnesium 2.0 1.4 - 2.5 mg/dL Blood 06/25/2024 8:45 PM CDT 06/25/2024 9:43 PM CDT Braeden Alcantar MD LAB BLOOD ORDERABLES Final Res ult Performing Organization Address [facility] Co de Phone Number [facility] [place] [address] * Basic metabolic panel (06/25/2024 8:45 PM CDT) [facility] Sodium 139 135 - 145 mmol/L Potassium, pl 3.7 3.3 - 4.9 mmol/L [facility] Chloride 101 97 - 110 mmol/L [facility] CO2 30 22 - 32 mmol/L [facility] Anion gap 8 2 - 15 mmol/L [facility] BUN 11 6 - 25 mg/dL [facility] Creatinine 0.73 0.60 - 1.10 mg/dL [facility] Glucose 137 70 - 199 mg/dL [facility] Comment: Interpretive Data Fasting glucose >/= 126 [...] Calcium 9.2 8.5 - 10.3 mg/dL [facility] Blood 06/25/2024 8:45 PM CDT 06/25/2024 9:43 PM CDT us Braeden Alcantar MD LAB BLOOD ORDERABLES Final Res ult [facility] Department [place] [address] * eGFR (06/24/2024 9:08 PM CDT) eGFR [...] MD LAB BLOOD ORDERABLES Final Res ult [facility] [place] [address] * (ABNORMAL) CBC without differential (06/24/2024 9:08 PM CDT) Pathologist [facility] WBC 8.12 3.80 - 9.90 K/cumm Hgb 10.9(L) 11.9 - 15.5 g/dL [facility] Hct 31.5(L) 35.6 - 45.5 % [facility] Plt 291 150 - 400 K/cumm [facility] MPV 11.0 9.1 - 12.3 fL [facility] RBC 3.43(L) 3.90 - 5.20 M/cumm [facility] MCV 91.8 81.3 - 96.4 fL [facility] MCH 31.8 27.1 - 33.3 pg [facility] MCHC 34.6 32.3 - 35.7 g/dL [facility] RDW CV 14.1 11.1 - 14.9 % [facility] RDW SD 47.6 35.7 - 48.1 fL [facility] NRBC abs 0.00 0.00 - 0.01 K/cumm [facility] Blood 06/24/2024 9:08 PM CDT 06/24/2024 10:07 PM CDT Braeden Alcantar MD LAB BLOOD ORDERABLES Final Res ult [facility] Department [place] [address] * Phosphorus (06/24/2024 9:08 PM CDT) Pathologist [facility] Phosphorus, pl 2.9 2.3 - 4.5 mg/dL Blood 06/24/2024 9:08 PM CDT 06/24/2024 9:47 PM CDT Braeden Alcantar MD LAB BLOOD ORDERABLES Final Res ult Performing Organization Address City/[facility] Hospital/ZIP Co de Phone Number [facility] One [facility] [place] [address] * Magnesium (06/24/2024 9:08 PM CDT) [facility] Magnesium 1.8 1.4 - 2.5 mg/dL Blood 06/24/2024 9:08 PM CDT 06/24/2024 9:47 PM CDT Braeden Alcantar MD LAB BLOOD ORDERABLES Final Res ult Performing Organization Address [facility] Co de Phone Number [facility] [place] [address] * Basic metabolic panel (06/24/2024 9:08 PM CDT) [facility] Sodium 141 135 - 145 mmol/L Potassium, pl 3.6 3.3 - 4.9 mmol/L [facility] Chloride 103 97 - 110 mmol/L [facility] CO2 30 22 - 32 mmol/L [facility] Anion gap 8 2 - 15 mmol/L [facility] BUN 8 6 - 25 mg/dL [facility] Creatinine 0.67 0.60 - 1.10 mg/dL [facility] Glucose 155 70 - 199 mg/dL [facility] Comment: Interpretive Data Fasting glucose >/= 126 [...] 2022. Calcium 8.8 8.5 - 10.3 mg/dL [facility] Blood 06/24/2024 9:08 PM CDT 06/24/2024 9:47 PM CDT us Braeden Alcantar MD LAB BLOOD ORDERABLES Final Res ult [facility] Department [place] [address] * TRANSTHORACIC ECHO (TTE) COMPLETE W DOPPLER/CF W CONTRAST (06/24/2024 2:47 PM CDT) Estimated EF 55-60 % CONS SCIMAGE EF Mod BP 68 % CONS SCIMAGE Anatomical Region Laterality Modality Ultrasound 06/24/2024 1:39 PM CDT Narrative 06/24/2024 3:12 PM CDT [facility] [place] [address] Transthoracic Echocardiographic Report Patient Name: JULI KOO J : 1960 (64y ) Gender: F Study Date: 06/24/2024 01:39:40 PM Ht(Inch): 65 Wt(Lb): 201.06 BSA: 2.05 Enterprise Account Manager: Renita Rosado RDCS Location: [id number] Order Provider: DONNY CARRANZA BMI: 33.45 BP: [...] Note Slava Carrion MD PhD - 06/24/2024 [facility] Cardiac [place] [address] Transthoracic Echocardiographic Report Patient Name: JULI KOO J : 1960 (64y ) Gender: F Study Date: 06/24/2024 01:39:40 PM Ht(Inch): 65 Wt(Lb): 201.06 BSA: 2.05 Enterprise Account Manager: Renita Rosado RDCS Location: [id number] Order Provider:DONNY CARRANZA BMI: 33.45 BP: 123 [...] LAB BLOOD ORDERABLES Final Res ult [facility] Department of Laboratories [place], [place] [id number] * (ABNORMAL) CBC without differential (06/23/2024 9:45 PM CDT) WBC 7.48 3.80 - 9.90 K/cumm Hgb 10.6(L) 11.9 - 15.5 g/dL [facility] Hct 30.7(L) 35.6 - 45.5 % [facility] Plt 223 150 - 400 K/cumm [facility] MPV 10.9 9.1 - 12.3 fL [facility] RBC 3.32(L) 3.90 - 5.20 M/cumm [facility] MCV 92.5 81.3 - 96.4 fL [facility] MCH 31.9 27.1 - 33.3 pg [facility] MCHC 34.5 32.3 - 35.7 g/dL [facility] RDW CV 14.1 11.1 - 14.9 % [facility] RDW SD 47.7 35.7 - 48.1 fL [facility] NRBC abs 0.00 0.00 - 0.01 K/cumm [facility] Blood 06/23/2024 9:45 PM CDT 06/23/2024 10:21 PM CDT Braeden Alcantar MD LAB BLOOD ORDERABLES Final Res ult Performing Organization Address City/[facility] Hospital/ZIP Co de Phone Number [facility] [place] [address] * Phosphorus (06/23/2024 9:45 PM CDT) [facility] Phosphorus, pl 2.9 2.3 - 4.5 mg/dL Blood 06/23/2024 9:45 PM CDT 06/23/2024 10:22 PM CDT Braeden Alcantar MD LAB BLOOD ORDERABLES Final Res ult [facility] [place] [address] * Magnesium (06/23/2024 9:45 PM CDT) [facility] Magnesium 1.5 1.4 - 2.5 mg/dL Blood 06/23/2024 9:45 PM CDT 06/23/2024 10:22 PM CDT Braeden Alcantar MD LAB BLOOD ORDERABLES Final Res ult [facility] [place] [address] * (ABNORMAL) Basic metabolic panel (06/23/2024 9:45 PM CDT) [facility] Sodium 138 135 - 145 mmol/L Potassium, pl 2.8(L) 3.3 - 4.9 mmol/L [facility] Chloride 105 97 - 110 mmol/L [facility] CO2 25 22 - 32 mmol/L [facility] Anion gap 8 2 - 15 mmol/L [facility] BUN 8 6 - 25 mg/dL [facility] Creatinine 0.82 0.60 - 1.10 mg/dL [facility] Glucose 91 70 - 199 mg/dL [facility] Comment: Interpretive Data Fasting glucose >/= 126 [...] 2022. Calcium 8.4(L) 8.5 - 10.3 mg/dL [facility] Blood 06/23/2024 9:45 PM CDT 06/23/2024 10:22 PM CDT Braeden Alcantar MD LAB BLOOD ORDERABLES Final Res ult Performing Organization Address City/[facility] Hospital/ZIP Co de Phone Number [facility] [place] [address] * Critical Care (06/23/2024 9:12 AM CDT) Narrative Kecia Troy MD - 06/23/2024 9:12 AM CDT Kceia Troy MD 06/23/2024 4:13 PM Critical Care Performed by: Donny Carranza NP Authorized by: Donny Carranza NP CRITICAL CARE: Team: [place] Shift: AM Level of Billing: Subsequent Hospital [...] plan with the patient's team and other medical/jewelry consultant staff. This time was in addition to and separate from care provided by other practitioners on this day of service. I spent time reviewing and interpreting data from bedside monitors, laboratory results, and imaging, I spent time discussing the management of this critically ill patient with consultants and the medical staff and I spent time documenting in the medical record Donny Carranza PORTRAIT PAINTER IN CLINIC/BEDSIDE JUDYAmi JUSTA Final Result * eGFR (06/22/2024 7:55 PM [...] ORDERABLES Final Res ult Performing Organization Address City/[facility] Co de Phone Number [facility] [place] [address] * (ABNORMAL) CBC without differential (06/22/2024 7:55 PM CDT) Pathologist [facility] WBC 7.81 3.80 - 9.90 K/cumm Hgb 11.1(L) 11.9 - 15.5 g/dL [facility] Hct 33.1(L) 35.6 - 45.5 % [facility] Plt 180 150 - 400 K/cumm [facility] MPV 11.1 9.1 - 12.3 fL [facility] RBC 3.51(L) 3.90 - 5.20 M/cumm [facility] MCV 94.3 81.3 - 96.4 fL [facility] MCH 31.6 27.1 - 33.3 pg [facility] MCHC 33.5 32.3 - 35.7 g/dL [facility] RDW CV 14.3 11.1 - 14.9 % [facility] RDW SD 48.6(H) 35.7 - 48.1 fL [facility] NRBC abs 0.00 0.00 - 0.01 K/cumm [facility] Blood 06/22/2024 7:55 PM CDT 06/22/2024 9:23 PM CDT Braeden Alcantar MD LAB BLOOD ORDERABLES Final Res ult Performing Organization Address City/[facility] Hospital/ZIP Co de Phone Number [facility] [place] [address] * (ABNORMAL) Phosphorus (06/22/2024 7:55 PM CDT) Pathologist [facility] Phosphorus, pl 2.2(L) 2.3 - 4.5 mg/dL Blood 06/22/2024 7:55 PM CDT 06/22/2024 8:52 PM CDT Braeden Alcantar MD LAB BLOOD ORDERABLES Final Res ult Performing Organization Address [facility]/ZIP Co de Phone Number [facility] Department [place] [address] * Magnesium (06/22/2024 7:55 PM CDT) [facility] Magnesium 2.1 1.4 - 2.5 mg/dL Blood 06/22/2024 7:55 PM CDT 06/22/2024 8:52 PM CDT Braeden Alcantar MD LAB BLOOD ORDERABLES Final Res ult Performing Organization Address [facility] de Phone Number [facility] Department [place] [address] * (ABNORMAL) Basic metabolic panel (06/22/2024 7:55 PM CDT) [facility] Sodium 136 135 - 145 mmol/L Potassium, pl 4.1 3.3 - 4.9 mmol/L [facility] Chloride 106 97 - 110 mmol/L [facility] CO2 20(L) 22 - 32 mmol/L [facility] Anion gap 10 2 - 15 mmol/L [facility] BUN 15 6 - 25 mg/dL [facility] Creatinine 0.82 0.60 - 1.10 mg/dL [facility] Glucose 146 70 - 199 mg/dL [facility] Comment: Interpretive Data Fasting glucose >/= 126 [...] Calcium 8.7 8.5 - 10.3 mg/dL [facility] Blood 06/22/2024 7:55 PM CDT 06/22/2024 8:52 PM CDT us Braeden Alcantar MD LAB BLOOD ORDERABLES Final Res ult [facility] [place] [address] * Critical Care (06/22/2024 6:39 PM CDT) Narrative Benjy Godinez MD PhD - 06/22/2024 6:39 PM CDT Benjy Godinez MD PhD 06/23/2024 9:03 PM Critical Care Performed by: Asmita Sarabia NP Authorized by: Asmita Sarabia NP CRITICAL CARE: Team: [place] Shift: PM Level of Billing: Subsequent Hospital [...] plan with the patient's team and other medical/jewelry consultant staff. This time was in addition to and separate from care provided by other practitioners on this day of service. I spent time reviewing and interpreting data from bedside monitors, laboratory results, and imaging and I spent time documenting in the medical record us Asmita Sarabia PORTRAIT PAINTER IN CLINIC/BEDSIDE O RDERABLES Final Result * [...] plan with the patient's team and other medical/jewelry consultant staff. This time was in addition [...] in the medical record us Donny Carranza NP IN CLINIC/BEDSIDE JOES MARR Final Result * (ABNORMAL) Vancomycin level trough Draw prior to giving vancomycin dose (06/22/2024 5:01 AM CDT) Pathologist [facility] Vancomycin trough 6.8(L) 10.0 - 20.0 mcg/mL Blood 06/22/2024 5:01 AM CDT 06/22/2024 5:14 AM CDT Narrative [facility] - 06/22/2024 6:29 AM CDT Draw prior to giving vancomycin dose us Lyla Jenkins NP LAB BLOOD ORDERABLES Final Res ult [facility] [place] [address] * ECG 12 lead (2024 10:48 PM CDT) Ventricular Rate EKG/Min 56 BPM [facility] Atrial Rate 56 BPM [facility] DC-Interval (MSEC) 148 ms [facility] QRS-Interval (MSEC) 84 ms [facility] QT-Interval (MSEC) 530 ms [facility] QTc 511 ms [facility] P Atco 42 degrees [facility] R Atco -13 degrees [facility] T Atco 23 degrees [facility] Diagnosis Sinus bradycardia Prolonged QT Abnormal ECG Confirmed by Abdelrahman Chowdhury MD ([id number]) on 06/24/2024 6:54:15 PM [facility] 2024 10:4 8 PM CDT 06/24/2024 6:54 PM CDT Braeden Alcantar MD ECG ORDERABLES Final Result Performing Organization Address [facility]/ZIP Co de Phone Number [facility] * (ABNORMAL) POC Blood Gas and Chemistries, Arterial - (2024 9:59 PM CDT) Pathologist [facility] pH, Art POC 7.34(L) 7.35 - 7.45 pCO2, Art POC 33(L) 35 - 45 mmHg [facility] pO2, Art POC 83 83 - 108 mmHg [facility] Na, POC 135 135 - 145 mmol/L [facility] K POC 3.7 3.3 - 4.9 mmol/L [facility] Comment: Interpretive Data Not all point of care methods assess for hemolysis. Confirm with instrument and retest K+ if not consistent with clinical signs and symptoms. Current Interpretive Data was last revised on 2023. Cl, POC 109 97 - 110 mmol/L [facility] Ionized Ca, POC 5.02 4.50 - 5.10 mg/dL [facility] Glucose, POC 155 70 - 199 mg/dL [facility] Lactate POC 0.6(L) 0.7 - 2.0 mmol/L [facility] SO2 (chay) arterial 98(H) 90 - 95 % [facility] Base excess, POC -7.1 mmol/L [facility] HCO3, Art POC 18(L) 20 - 30 mmol/L [facility] Hct, POC 32.0(L) 36.3 - 45.3 % [facility] Total Hb, POC 10.6(L) 11.9 - 15.5 g/dL [facility] Blood 2024 9:59 PM CDT 2024 9:59 PM CDT Braeden Alcantar MD LAB POCT ORDERABLES - DEVICE F inal Result [facility] Department [place] [address] * XR Abdomen Ap 1 Vw (2024 [...] MICROBIOLOGY - GENER [place] [address] * Hepatitis C antibody Blood (2024 5:02 PM CDT) Pathologist [facility] Hep C Ab Nonreactive Nonreactive Comment:Antibodies to HCV no t detected. Does NOT exclude the possibility of recent exposure to HCV. Current interpretive data was last revised on 21 Blood 2024 5:02 PM CDT 2024 5:30 PM CDT us Devon CENTENO LAB MICROBIOLOGY - GENER AL ORDERABLES Final Result Performing Organization Address [facility] [place] [address] * RPR Blood (2024 5:02 PM CDT) [facility] RPR Nonreactive Nonreactive Blood 2024 5:02 PM CDT 2024 5:30 PM CDT us Devon CENTENO LAB MICROBIOLOGY - GENER AL ORDERABLES Final Result Performing Organization Address [facility] de Phone Number [facility] [place] [address] * Hepatitis B Surface Antigen Blood (2024 5:02 PM CDT) [facility] HepBsAg Nonreactive Nonreactive Blood 2024 5:02 PM CDT 2024 5:30 PM CDT us Devon CENTENO LAB MICROBIOLOGY - GENER AL ORDERABLES Final Result Performing Organization Address [facility] [place] [address] * Lactate (2024 5:00 PM CDT) Lactate 0.7 0.7 - 2.0 mmol/L Blood 2024 5:00 PM CDT 2024 5:31 PM CDT Braeden Alcantar MD LAB BLOOD ORDERABLES Final Res ult Performing Organization Address [facility] Co de Phone Number ALMA [facility] [place] [address] * (ABNORMAL) eGFR (2024 5:00 PM CDT) [...] LAB BLOOD ORDERABLES Final Res ult [facility] [place] [address] * (ABNORMAL) Calcium, ionized (2024 5:00 PM CDT) [facility] Calcium, Ionized 4.43(L) 4.50 - 5.10 mg/dL Blood 2024 5:00 PM CDT 2024 5:37 PM CDT Braeden Alcantar MD LAB BLOOD ORDERABLES Final Res ult Performing Organization Address [facility]/ZIP Co de Phone Number [facility] [place] [address] * (ABNORMAL) CBC without differential (2024 5:00 PM CDT) [facility] WBC 7.37 3.80 - 9.90 K/cumm Hgb 10.2(L) 11.9 - 15.5 g/dL [facility] Hct 29.8(L) 35.6 - 45.5 % [facility] Plt 152 150 - 400 K/cumm [facility] MPV 10.9 9.1 - 12.3 fL [facility] RBC 3.20(L) 3.90 - 5.20 M/cumm [facility] MCV 93.1 81.3 - 96.4 fL [facility] MCH 31.9 27.1 - 33.3 pg [facility] MCHC 34.2 32.3 - 35.7 g/dL [facility] RDW CV 14.2 11.1 - 14.9 % [facility] RDW SD 49.1(H) 35.7 - 48.1 fL [facility] NRBC abs 0.00 0.00 - 0.01 K/cumm [facility] Blood 2024 5:00 PM CDT 2024 5:30 PM CDT Braeden Alcantar MD LAB BLOOD ORDERABLES Final Res ult Performing Organization Address City/[facility]/ZIP Co de Phone Number [facility] [place] [address] * Phosphorus (2024 5:00 PM CDT) Pathologist [facility] Phosphorus, pl 2.6 2.3 - 4.5 mg/dL Blood 2024 5:00 PM CDT 2024 5:37 PM CDT Braeden Alcantar MD LAB BLOOD ORDERABLES Final Res ult Performing Organization Address [facility] de Phone Number [facility] Department [place] [address] * Magnesium (2024 5:00 PM CDT) [facility] Magnesium 1.7 1.4 - 2.5 mg/dL Blood 2024 5:00 PM CDT 2024 5:37 PM CDT Braeden Alcantar MD LAB BLOOD ORDERABLES Final Res ult Performing Organization Address [facility] de Phone Number [facility] [place] [address] * (ABNORMAL) Blood gas, arterial (2024 5:00 PM CDT) [facility] pH, Art 7.36 7.35 - 7.45 PCO2, Arterial 34(L) 35 - 45 mmHg [facility] PO2, Arterial 125(H) 83 - 108 mmHg [facility] HCO3 Art (Calculated) 20 20 - 30 mmol/L [facility] BE, art -6 mmol/L [facility] Comment: Interpretive Data No Reference Range Established Current Interpretive Data was last revised on 2017 O2 Sat Art (Measured) 98(H) 90 - 95 % [facility] Blood 2024 5:00 PM CDT 2024 5:22 PM CDT Braeden Alcantar MD LAB BLOOD ORDERABLES Final Res ult [facility] Department [place] [address] * (ABNORMAL) Basic metabolic panel (2024 5:00 PM CDT) Pathologist [facility] Sodium 142 135 - 145 mmol/L Potassium, pl 3.1(L) 3.3 - 4.9 mmol/L [facility] Chloride 107 97 - 110 mmol/L [facility] CO2 23 22 - 32 mmol/L [facility] Anion gap 12 2 - 15 mmol/L [facility] BUN 15 6 - 25 mg/dL [facility] Creatinine 1.12(H) 0.60 - 1.10 mg/dL [facility] Glucose 126 70 - 199 mg/dL [facility] Comment: Interpretive Data Fasting glucose >/= 126 [...] 2022. Calcium 8.1(L) 8.5 - 10.3 mg/dL [facility] Blood 2024 5:00 PM CDT 2024 5:37 PM CDT us Braeden Alcantar MD LAB BLOOD ORDERABLES Final Res ult [facility] [place] [address] * ECG 12 lead (2024 4:29 PM CDT) Ventricular Rate EKG/Min 63 BPM [facility] Atrial Rate 63 BPM [facility] DC-Interval (MSEC) 144 ms [facility] QRS-Interval (MSEC) 86 ms [facility] QT-Interval (MSEC) 498 ms [facility] QTc 509 ms [facility] P Atco 17 degrees [facility] R Atco -22 degrees [facility] T Atco 12 degrees [facility] Diagnosis Normal sinus rhythm Minimal voltage criteria for LVH, may be normal variant Prolonged QT Abnormal ECG Confirmed by Abdelrahman Chowdhury MD ([id number]) on 06/24/2024 6:57:56 PM [facility] 2024 4:29 PM CDT 06/24/2024 6:57 PM CDT us Braeden Alcantar MD ECG ORDERABLES Final Result [facility] * (ABNORMAL) POC Blood Gas and Chemistries, Arterial - (2024 3:47 PM CDT) pH, Art POC 7.42 7.35 - 7.45 pCO2, Art POC 31(L) 35 - 45 mmHg [facility] pO2, Art POC 158(H) 83 - 108 mmHg [facility] Na, POC 139 135 - 145 mmol/L [facility] K POC 2.9(L) 3.3 - 4.9 mmol/L [facility] Comment: Interpretive Data Not all point of care methods assess for hemolysis. Confirm with instrument and retest K+ if not consistent with clinical signs and symptoms. Current Interpretive Data was last revised on 2023. Cl, POC 112(H) 97 - 110 mmol/L [facility] Ionized Ca, POC 4.44(L) 4.50 - 5.10 mg/dL [facility] Glucose, POC 116 70 - 199 mg/dL [facility] Lactate POC 1.2 0.7 - 2.0 mmol/L [facility] SO2 (chay) arterial 100(H) 90 - 95 % [facility] Base excess, POC -3.6 mmol/L [facility] HCO3, Art POC 20 20 - 30 mmol/L [facility] Hct, POC 31.0(L) 36.3 - 45.3 % [facility] Total Hb, POC 10.3(L) 11.9 - 15.5 g/dL [facility] Blood 2024 3:47 PM CDT 2024 3:47 PM CDT Braeden Alcantar MD LAB POCT ORDERABLES - DEVICE F inal Result Performing Organization Address City/[facility]/ZIP Co de Phone Number [facility] Department [place] [address] * FL Fluoroscopy < 1 Hour (2024 3:20 PM CDT) Narrative [facility] - 2024 3:20 PM CDT The images from this study are not interpreted by Radiology. Please refer to the physician's procedure / OR operative note. Chelsea Haywood MD IMG FLUOROSCOPY PROCEDURES Fin al Result Performing Organization Address [facility] Co de Phone Number [facility] * (ABNORMAL) Urine culture Urine, [...] (clinically insignificant growth. (.) Organism ESCHERICHIA COLI [facility] Urine, bladder 2024 3: 20 PM CDT 2024 5:31 PM CDT Narrative [facility] - 06/27/2024 10:28 AM CDT URINE CULTURE Indications for Culture:->Urology patient Testing performed by [facility] Microbiology Laboratory ([phone]) Organism Antibiotic Method Susceptibility Escherichia coli Ampicillin [...] Edited Result - Final Performing Organization Address [facility] Co de Phone Number [facility] Department [place] [address] * Lactate (2024 1:07 PM CDT) Lactate 0.8 0.7 - 2.0 mmol/L Blood 2024 1:07 PM CDT 2024 1:40 PM CDT us Lyla Jenkins NP LAB BLOOD ORDERABLES Final Res ult Performing Organization Address [facility] Co de Phone Number [facility] [place] [address] * (ABNORMAL) eGFR (2024 1:07 PM CDT) [...] CDT 2024 2:06 PM CDT Lyla Jenkins [employer] LAB BLOOD ORDERABLES Final Res ult [facility] [place] [address] * (ABNORMAL) CBC without differential (2024 1:07 PM CDT) WBC 7.70 3.80 - 9.90 K/cumm Hgb 10.6(L) 11.9 - 15.5 g/dL [facility] Hct 30.6(L) 35.6 - 45.5 % [facility] Plt 161 150 - 400 K/cumm [facility] MPV 11.0 9.1 - 12.3 fL [facility] RBC 3.31(L) 3.90 - 5.20 M/cumm [facility] MCV 92.4 81.3 - 96.4 fL [facility] MCH 32.0 27.1 - 33.3 pg [facility] MCHC 34.6 32.3 - 35.7 g/dL [facility] RDW CV 14.3 11.1 - 14.9 % [facility] RDW SD 49.0(H) 35.7 - 48.1 fL [facility] NRBC abs 0.00 0.00 - 0.01 K/cumm [facility] Blood 2024 1:07 PM CDT 2024 2:06 PM CDT us Lyla Jenkins [employer] LAB BLOOD ORDERABLES Final Res ult [facility] Department [place] [address] * (ABNORMAL) Basic metabolic panel (2024 1:07 PM CDT) Sodium 139 135 - 145 mmol/L Potassium, pl 3.3 3.3 - 4.9 mmol/L [facility] Chloride 108 97 - 110 mmol/L [facility] CO2 21(L) 22 - 32 mmol/L [facility] Anion gap 10 2 - 15 mmol/L [facility] BUN 16 6 - 25 mg/dL [facility] Creatinine 1.21(H) 0.60 - 1.10 mg/dL [facility] Glucose 100 70 - 199 mg/dL [facility] Comment: Interpretive Data Fasting glucose >/= 126 [...] 2022. Calcium 7.8(L) 8.5 - 10.3 mg/dL [facility] Blood 2024 1:07 PM CDT 2024 2:06 PM CDT us Lyla Jenkins [employer] LAB BLOOD ORDERABLES Final Res ult [facility] [place] [address] * Urine culture Urine, clean voided (2024 8:45 AM CDT) Pathologist [facility] Report Final Report: Less than 100,000 colonies/mL (clinically insignificant growth based on current clinical standards) Organism (CLINICALLY INSIGNIFICANT GROWTH [facility] Urine, clean voided 2024 8:45 AM CDT 2024 9:43 AM CDT Narrative [facility] - 06/22/2024 12:09 PM CDT Indications for Culture:->Recent positive UA Testing performed by [facility] Microbiology Laboratory ([phone]) Braeden Alcantar MD LAB MICROBIOLOGY - GENERAL ORD ERABLES Final Result Performing Organization Address City/State/[facility] Co de Phone Number [facility] Department [place] [address] * (ABNORMAL) Urinalysis reflex to microscopic (2024 8:32 AM CDT) Color, ur Yellow Yellow Clarity, ur Turbid(A) Clear [facility] Specific gravity, ur 1.017 1.003 - 1.030 [facility] pH, urine 6.0 [facility] Comment: Interpretive Data U rine pH is [...] on 2017 Protein, ur ql 2+(A) Negative [facility] Glucose, ur ql Negative Negative [facility] Ketones, ur 1+(A) Negative [facility] Bilirubin, ur Negative Negative [facility] Blood, ur 1+(A) Negative [facility] Urobilinogen, ur <2.0 <2.0 mg/dL [facility] Nitrite, ur Positive(A) Negative [facility] Leukocyte esterase, ur 3+(A) Negative [facility] UA reflex comment Reflex to microscopic UA will be performed. [facility] Urine 2024 8:32 AM CDT 2024 9:19 AM CDT Braeden Alcantar MD LAB URINE ORDERABLES Final Res ult Performing Organization Address City/[facility] Co de Phone Number [facility] [place] [address] * (ABNORMAL) Urinalysis, microscopic only (2024 8:32 AM CDT) WBC, ur >50(A) 0 - 5 /HPF RBC, ur 6-10(A) 0 - 2 /HPF [facility] Epithelial cells, squamous, ur 1-5 0 - 5 /HPF [facility] Bacteria, ur 4+(A) [facility] Urine 2024 8:32 AM CDT 2024 9:19 AM CDT us Braeden Alcantar MD LAB URINE ORDERABLES Final Res ult Performing Organization Address [facility] de Phone Number [facility] [place] [address] * US Kidney Complete (2024 12:33 AM [...] 11:13 PM CDT) ABO Rh A Negative [facility] HCLL OTHER 06/20/2024 11:1 3 PM CDT 06/20/2024 11:45 PM CDT us Carlos Palomares MD LAB BLOOD ORDERABLES Shanell l Result AL[facility] Department [place] [address] [facility] * XR Chest 1 Vw [...] images may or may not represent the white earth source data set and thus may contain [...] IMAGING STUDY STUDY INITIALLY PERFORMED: 06/20/[address] [facility]. TYPE OF STUDY: Multiple CT images of [...] IMAGING STUDY STUDY INITIALLY PERFORMED: 06/20/[address] [facility]. TYPE OF STUDY: Multiple CT images of [...] images may or may not represent the white earth source data set and thus may contain [...] Outside Reference (06/20/2024 10:49 PM CDT) Impressions [facility] - 06/20/2024 10:49 PM CDT These images are for Reference purposes only and have not been reviewed by [facility] Radiology. There will be no report generated by a [facility] Radiologist. Narrative [facility] - 06/20/2024 10:49 [...] evidence of acuteischemia. Carlos Palomares MD 06/20/24 2286 Miko Edwards MD ECG ORDERABLES Final R esult Performing Organization Address [facility] Co de Phone Number [facility] * Sepsis Lactate w/ Reflex (06/20/2024 10:38 PM CDT) [facility] Sepsis Lactate 1.1 0.7 - 2.0 mmol/L Blood 06/20/2024 10:3 8 PM CDT 06/20/2024 10:42 PM CDT Carlos Palomares MD LAB BLOOD ORDERABLES Shanell l Result Performing Organization Address [facility] Co de Phone Number [facility] Department [place] [address] * POCT glucose (06/20/2024 10:27 PM CDT) [facility] Glucose, POC 162 70 - 199 mg/dL Blood 06/20/2024 10:2 7 PM CDT 06/20/2024 10:27 PM CDT Carlos Palomares MD LAB POCT ORDERABLES - DEV ICE Final Result Performing Organization Address [facility] de Phone Number [facility] Department [place] [address] * (ABNORMAL) eGFR (06/20/2024 10:24 PM CDT) [facility] eGFR 37(L) >=60 mL/min/1. 73 m2 Comment: [...] MD LAB BLOOD ORDERABLES Fi nal Result [facility] [place] [address] * (ABNORMAL) Differential, auto (06/20/2024 10:24 PM CDT) Neutrophil abs 8.00(H) 1.50 - 6.50 K/cumm Imm gran abs 0.12(H) 0.00 - 0.10 K/cumm [facility] Lymphocyte abs 1.11 0.80 - 3.30 K/cumm [facility] Monocyte abs 1.06(H) 0.20 - 0.80 K/cumm [facility] Eosinophil abs 0.00 0.00 - 0.50 K/cumm [facility] Basophil abs 0.04 0.00 - 0.10 K/cumm [facility] Neutrophil pct 77.4 % [facility] Comment: Interpretive Data Percent cell count reference ranges are not reported, since discordance with absolute values may lead to misinterpretation of CBC data. Current Interpretive Data was last revised on 2017. Imm gran pct 1.2 % [facility] Comment: Interpretive Data Percent cell count reference ranges are not reported, since discordance with absolute values may lead to misinterpretation of CBC data. Current Interpretive Data was last revised on 2017. Lymphocyte pct 10.7 % [facility] Comment: Interpretive Data Percent cell count reference ranges are not reported, since discordance with absolute values may lead to misinterpretation of CBC data. Current Interpretive Data was last revised on 2017. Monocyte pct 10.3 % [facility] Comment: Interpretive Data Percent cell count reference ranges are not reported, since discordance with absolute values may lead to misinterpretation of CBC data. Current Interpretive Data was last revised on 2017. Eosinophil pct 0.0 % [facility] Comment: Interpretive Data Percent cell count reference ranges are not reported, since discordance with absolute values may lead to misinterpretation of CBC data. Current Interpretive Data was last revised on 2017. Basophil pct 0.4 % [facility] Comment: Interpretive Data Percent cell count reference ranges are not reported, since discordance with absolute values may lead to misinterpretation of CBC data. Current Interpretive Data was last revised on 2017. Blood 06/20/2024 10:2 4 PM CDT 06/20/2024 10:35 PM CDT Miko Edwards MD LAB BLOOD ORDERABLES Fi nal Result [facility] Department [place] [address] * Respiratory pathogen panel Nasopharyngeal (06/20/2024 10:24 PM CDT) Pathologist [facility] Influenza A RNA Not Detected Not Detected Influenza B RNA Not Detected Not Detected [facility] RSV RNA Not Detected Not Detected [facility] COVID-19 RNA Not Detected Not Detected [facility] Coronavirus 229E RNA Not Detected Not Detected [facility] Coronavirus HKU1 RNA Not Detected Not Detected [facility] Coronavirus NL63 RNA Not Detected Not Detected [facility] Coronavirus OC43 RNA Not Detected Not Detected [facility] Adenovirus DNA Not Detected Not Detected [facility] Metapneumovirus RNA Not Detected Not Detected [facility] Rhinovirus/Enterov irus RNA Not Detected Not Detected [facility] Parainfluenza 1 RNA Not Detected Not Detected [facility] Parainfluenza 2 RNA Not Detected Not Detected [facility] Parainfluenza 3 RNA Not Detected Not Detected [facility] Parainfluenza 4 RNA Not Detected Not Detected [facility] B. pertussis DNA Not Detected Not Detected [facility] B. parapertussis DNA Not Detected Not Detected [facility] C. pneumoniae DNA Not Detected Not Detected [facility] M. pneumoniae DNA Not Detected Not Detected [facility] Nasopharyngeal 06/20/2024 10 :24 PM CDT 06/20/2024 10:40 PM CDT Narrative [facility] - 06/20/2024 11:35 PM CDT Is the Patient experiencing symptoms consistent with COVID?->No Surveillance testing for transplant patient?->No Interpretive Data The [employer] Respiratory Panel (RP2.1) assay is a [...] assay has FDA clearance for testing of PORTRAIT PAINTER swabs. The performance of additional specimen types has been assessed by the performing laboratory. The performance characteristics of this assay have been determined by [facility] Molecular Infectious Disease Laboratory. Current interpretive data was last revised on 21. Miko Edwards MD LAB MICROBIOLOGY - [facility] ORDERABLES Final Result [facility] Department [place] [address] * (ABNORMAL) CBC with auto differential (06/20/2024 10:24 PM CDT) WBC 10.33(H) 3.80 - 9.90 K/cumm Hgb 10.6(L) 11.9 - 15.5 g/dL [facility] Hct 31.6(L) 35.6 - 45.5 % [facility] Plt 167 150 - 400 K/cumm [facility] MPV 10.3 9.1 - 12.3 fL [facility] RBC 3.37(L) 3.90 - 5.20 M/cumm [facility] MCV 93.8 81.3 - 96.4 fL [facility] MCH 31.5 27.1 - 33.3 pg [facility] MCHC 33.5 32.3 - 35.7 g/dL [facility] RDW CV 14.0 11.1 - 14.9 % [facility] RDW SD 47.5 35.7 - 48.1 fL [facility] NRBC abs 0.02(H) 0.00 - 0.01 K/cumm [facility] Blood 06/20/2024 10:2 4 PM CDT 06/20/2024 10:35 PM CDT Miko Edwards MD LAB BLOOD ORDERABLES Fi nal Result Performing Organization Address [facility]/ZIP Co de Phone Number [facility] Eileen [facility] Department [place] [address] * Blood culture Blood Peripheral (06/20/2024 10:24 PM CDT) Report Final Report: No growth Blood (Peripheral) 06/20/2024 10:24 PM CDT 06/20/2024 10:37 PM CDT Narrative [facility] - 06/25/2024 7:01 AM CDT [...] performance characteristics have been verified by the [facility] Microbiology Laboratory. For questions about this culture, contact the Microbiology Laboratory at [phone]. Interpretive data was last revised on 23. Miko Edwards MD LAB MICROBIOLOGY - GENE RAL ORDERABLES Final Result Performing Organization Address City/[facility]/ZIP Co de Phone Number [facility] Department [place] [address] * Blood culture Blood Peripheral (06/20/2024 10:24 PM CDT) Report Final Report: No growth Blood (Peripheral) 06/20/2024 10:24 PM CDT 06/20/2024 10:38 PM CDT Adam ARVIZU - 06/25/2024 7:01 AM CDT Draw [...] performance characteristics have been verified by the [facility] Microbiology Laboratory. For questions about this culture, contact the Microbiology Laboratory at [phone]. Interpretive data was last revised on 23. Miko Edwards MD LAB MICROBIOLOGY - GENE RAL ORDERABLES Final Result [facility] HERNANDE[facility] Department [place] [address] * aPTT (06/20/2024 10:24 PM CDT) aPTT [...] ORDERABLES Fi nal Result Performing Organization Address [facility] de Phone Number [facility] Department [place] [address] * (ABNORMAL) Protime-INR (06/20/2024 10:24 PM CDT) PT 13.5(H) 9.7 - 13.0 sec INR 1.24(H) 0.90 - 1.20 [facility] Comment: Interpretive data Oral anticoagulant therapeutic ranges: Venous thromboembolism prophylaxis or treatment: 2.0-3.0 CARDIOLOGY Standard range: 2.0-3.0 High-intensity range: 2.5-3.5 Refer to indication-specific guidelines for appropriate target ranges for prosthetic heart valve replacement. Current interpretive data was last revised on 2019. Blood 06/20/2024 10:2 4 PM CDT 06/20/2024 10:38 PM CDT Result [facility] Miko Edwards MD LAB BLOOD ORDERABLES Fi nal Result Performing Organization Address [facility] de Phone Number [facility] Department [place] [address] * Type and screen (06/20/2024 10:24 PM CDT) ABO Rh A Negative Jeanette, indirect Negative [facility] Blood 06/20/2024 10:2 4 PM CDT 06/20/2024 10:42 PM CDT Narrative [facility] - 06/20/2024 11:43 PM CDT Has the patient had Daratumumab or Isatuximab in the past 6 months?->Unknown Miko Edwards MD LAB BLOOD BANK TEST ORD ERABLES Final Result [facility] [facility] [place] [address] * (ABNORMAL) Basic metabolic panel (06/20/2024 10:24 PM CDT) Pathologist [facility] Sodium 138 135 - 145 mmol/L Potassium, pl 3.3 3.3 - 4.9 mmol/L [facility] Chloride 106 97 - 110 mmol/L [facility] CO2 22 22 - 32 mmol/L [facility] Anion gap 10 2 - 15 mmol/L [facility] BUN 19 6 - 25 mg/dL [facility] Creatinine 1.56(H) 0.60 - 1.10 mg/dL [facility] Glucose 134 70 - 199 mg/dL [facility] Comment: Interpretive Data Fasting glucose >/= 126 [...] 2022. Calcium 7.2(L) 8.5 - 10.3 mg/dL [facility] Blood 06/20/2024 10:2 4 PM CDT 06/20/2024 10:35 PM CDT Miko Edwards MD LAB BLOOD ORDERABLES Fi nal Result Performing Organization Address [facility]/ZIP Co de Phone Number [facility] Department [place] [address] * COLONOSCOPY (07/18/2017 9:10 AM CDT) Anatomical Region Laterality Modality Other Narrative Procedure Note Mike Locke MD - 07/18/2017 9:10 AM CDT [facility] Patient Name: Juli Koo Procedure Date: 07/18/2017 9:10 AM Date of : 1960 Admit Type: Outpatient Age: 57 Gender: Female Attending MD: Mike Locke MD Room: [facility] ENDOSCOPY CAPSULE Note Status: Finalized [...] passed under direct vision.The Pediatric Colonoscope [id number] was introduced through the anus and advanced [...] 9:10 AM Procedure Code(s): --- Professional --- 26649, Colonoscopy, flexible; diagnostic, including collection of specimen(s) by brushing or washing, when performed (separateprocedure) Diagnosis Code(s): --- Professional --- Z86.010, Personal history of colonic polyps K64.8, Other hemorrhoids K57.30, Diverticulosis of large intestine without perforation orabscess without bleeding CPT copyright 2017 [employer]. All rights reserved. The codes documented in this report are preliminary and upon client onboarding analyst reviewmay be revised to meet current compliance requirements. Recognized by the [employer] for promoting quality in endoscopy Mike Locke MD ENDOSCOPY PROCEDURES Final Result from Last 3 Months or Most Recently Relevant to Health Maintenance Additional Health Concerns Infection Onset Date Last Indicated MDR gram neg/ESBL [address] [facility] WORKERS COMPENSATION GENERIC Member Subscriber Plan / Payer (Ef fective 2022-Present) Name:Juli Koo Relation to Subscriber:Self Name:Juli Koo Payer ID:[id number] Group ID:Not on file Type:WORKERS COMPENSATION Address: [place] [id number] [facility] Advance Directives For more information, please contact: [phone] * Full Code (Latest Code Status on [...] 8:32 AM 07/18/2017 12:39 PM Care Teams Group Social Worker Relationship Specialty Start Date End Date Yancy Guerrero MD [address] [place] [address] PCP - General 05/22/16 Lupillo Reyes MD [address] [address] Consulting Physician Orthopedic Surgery 07/26/22
--- OUTSIDE RECORDS SUMMARY | 2024-07-18 11:36 | XMS_ITS | Encounter Summary ---
Author Organization [facility] [employer] [facility] Address [address] [place] [address] Phone Care Team Providers Care Insurance Consultant Name Role Phone Yancy Guerrero MD Primary Care Provider + [phone] Lupillo Reyes MD Unavailable [phone] Encounter Details Date Type Department Care Team (Latest Contact Info) Description 03/06/2023 Orders Only [facility] Wendy Choudhary, ISAIAS [address] 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 Gender Identity Not on file Sexual Orientation Not on file documented as of this encounter Plan of Treatment Upcoming Encounters Date Type Department Care Team (Late st Contact Info) Description 07/19/2024 12:00 PM CDT Hospital Encounter [facility] Operating Room [address] [place] [address] Rob Kline MD [address] [place] [address] 07/19/2024 12:00 PM CDT Anesthesia Event [facility] Operating Room [address] [place] [address] Nabila Martinez, YENI [address] [place] [address] [place] [address] 07/19/2024 12:00 PM CDT - 07/19/2024 1:00 PM CDT Surgery [facility] Operating Room [address] [place] [address] Rob Kline MD [address] [facility] [place] [address] URETEROSCOPY Scheduled Procedures Name Priority Associated Diagnoses [...] documented as of this encounter Care Teams Insurance Consultant Relationship Specialty Start Date End Date Yancy Guerrero MD [address] [place] [address] PCP - General 05/22/16 Lupillo Reyes MD [address] [address] Consulting Physician Orthopedic Surgery 07/26/22 documented as of this encounter
--- OUTSIDE RECORDS SUMMARY | 2024-07-18 11:36 | XMS_ITS | Encounter Summary ---
Author Organization [facility] Address 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
--- OUTSIDE RECORDS SUMMARY | 2024-07-18 11:36 | XMS_ITS | Encounter Summary ---
Author Organization 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 Gender Identity Not on file Sexual Orientation Not on file documented as of this encounter Plan of Treatment Upcoming Encounters Date Type Department Care Team (Late st Contact Info) Description 07/19/2024 12:00 PM CDT Hospital Encounter [facility] Operating Room [address] [place] [address] Rob Kline MD [address] [place] [address] 07/19/2024 12:00 PM CDT Anesthesia Event [facility] Operating Room [address] [place] [address] Nabila Martinez NP [address] [place] [address] [place] [address] 07/19/2024 12:00 PM CDT - 07/19/2024 1:00 PM CDT Surgery [facility] Operating Room [address] [place] [address] Rob Kline MD [address] [facility] [place] [address] URETEROSCOPY Scheduled Procedures Name Priority Associated Diagnoses [...] documented as of this encounter Care Teams Steaming Cabinet Tender Relationship Specialty Start Date End Date Yancy Guerrero MD [address] [place] [address] PCP - General 05/22/16 Lupillo Reyes MD [address] [address] Consulting Physician Orthopedic Surgery 07/26/22 documented as of this encounter
--- OUTSIDE RECORDS SUMMARY | 2024-07-18 11:36 | XMS_ITS | Encounter Summary ---
Author Organization [facility] [employer] of [facility] Address [address] [place] [address] Phone Care Team Providers Care Return Agent Airport Name Role Phone Yancy Guerrero MD Primary Care Provider + [phone] Lupillo Reyes MD Unavailable [phone] Encounter Details Date Type Department Care Team (Latest Contact Info) Description 04/03/2023 Orders Only [facility] Wendy Choudhary, ISAIAS [address] [facility] [address] [place], [place] [phone] Social History Tobacco Use Types Packs/Day Years [...] on file Legal 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 Gender Identity Not on file Sexual Orientation Not on file documented as of this encounter Plan of Treatment Upcoming Encounters Date Type Department Care Team (Late st Contact Info) Description 07/19/2024 12:00 PM CDT Hospital Encounter [facility] Operating Room [address] [place] [address] Rob Kline MD [address] [place] [address] 07/19/2024 12:00 PM CDT Anesthesia Event [facility] Operating Room [address] [place] [address] Nabila Martinez NP [address] [place] [address] [place] [address] 07/19/2024 12:00 PM CDT - 07/19/2024 1:00 PM CDT Surgery [facility] Operating Room [address] [place] [address] Rob Kline MD [address] [facility] [place] [address] URETEROSCOPY Scheduled Procedures Name Priority Associated Diagnoses [...] documented as of this encounter Care Teams Return Agent Airport Relationship Specialty Start Date End Date Yancy Guerrero MD [address] [place] [address] PCP - General 05/22/16 Lupillo Reyes MD [address] [address] Consulting Physician Orthopedic Surgery 07/26/22 documented as of this encounter
--- OUTSIDE RECORDS SUMMARY | 2024-07-18 11:36 | XMS_ITS | Encounter Summary ---
Author Organization [facility] Address [address] [place] [address] Care Team Providers Care Blood Bank Coordinator Name Role Phone Yancy Guerrero MD Primary Care Provider + Encounter Details Date Type Department Care Team (Latest Contact Info) Description 01/24/[address] [facility] Tod Cifuentes, [address] [email or web address] [address] [place] [address] Other Screening Mammogram Social History Tobacco Use Types Packs/Day Years Used Date Smoking Tobacco: Never Assessed Comments Unknown Sex and Gender Information Value Date Recorded Sex Assigned at Not on file Legal Sex Female 4:27 AM RECORD MAKER Gender Identity Not on file Sexual Orientation Not on file documented as of this encounter Plan of Treatment Not on file documented as of this encounter Procedures Procedure Name Priority Date/Time Associated Diagnosis Comments MAMMO SCREEN BILAT W OR WO CAD Routine 01/24/2008 9:19 AM RECORD MAKER documented in this encounter Results * MAMMO DIGITAL SCREEN BILAT (01/24/2008 9:19 AM RECORD MAKER) Anatomical Region Laterality Modality Breast Bilateral Other 01/24/2008 9:19 AM RECORD MAKER Narrative 01/25/2008 7:03 PM RECORD MAKER [facility] [address] [place], [place] [address] Admit Date: 01/24/2008 JULI KOO Sex: F Admit Prov: TOD DALLAS Date: 1960 Primary Care Prov: PCP, UNKNOWN CMRN: [id number] Room: [facility] SSN: [id number] IMAGING SERVICES Ordering Prov: TOD DALLAS Accession Number: [id number] Interpretation BILATERAL SCREENING DIGITAL MAMMOGRAMS WITH COMPUTER [...] AMK Procedure Note Olena Christy - 01/25/2008 [address] [place], [place] [address] Admit Date: 01/24/2008 HANANEJULI Sex: F Admit Prov: TOD DALLAS Date: 1960 Primary Care Prov: PCP, UNKNOWN CMRN: [id number] [id number] Ordering Prov: TOD DALLAS Interpretation [...] mammogram documented in this encounter Care Teams Blood Bank Coordinator Relationship Specialty Start Date End Date Yancy Guerrero MD [address] [place] [address] PCP - General Internal Medicine 09/22/14 documented as of this encounter
--- OUTSIDE RECORDS SUMMARY | 2024-07-18 11:36 | XMS_ITS | CONTINUITY OF CARE DOCUMENT ---
Author Name emerald corbin Address Unknown Organization [facility] Address [address] [place] [address] [address] [place] [address] Phone [phone] Care Team Providers Care Plate Former Name Role Phone Prabhu ROSARIO, Tha Unavailable INSURANCE PROVIDERS Payer name Policy type / Coverage type [place] red green party ID [facility] [employer] insurance [employer] [id number]
--- OUTSIDE RECORDS SUMMARY | 2024-07-18 11:36 | XMS_ITS | Encounter Summary ---
Author Organization [facility] [employer] [facility] Address [address] [facility] [address] [place] [address] Phone Care Team Providers Care Court Manager Name Role Phone Yancy Guerrero MD Primary Care Provider + [phone] Lupillo Reyes MD Unavailable [phone] Encounter Details Date Type Department Care Team (Latest Contact Info) Description 11/25/2010 Orders Only [facility] Wendy Choudhary, ISAIAS [address] [facility] [address] [place], [place] [id number] Social History Tobacco Use Types Packs/Day Years Used Date Smoking Tobacco: Never Assessed Comments Unknown Sex and Gender Information Value Date Recorded Sex Assigned at Not on file Legal 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 HANDLE 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 Gender Identity Not on file Sexual Orientation Not on file documented as of this encounter Plan of Treatment Upcoming Encounters Date Type Department Care Team (Late st Contact Info) Description 07/19/2024 12:00 PM CDT Hospital Encounter [facility] Operating Room [address] [place] [address] Rob Kline MD [address] [facility] [place] [address] 07/19/2024 12:00 PM CDT Anesthesia Event [facility] Operating Room [address] [place] [address] Nabila Martinez NP [address] [place] [address] [place] [address] 07/19/2024 12:00 PM CDT - 07/19/2024 1:00 PM CDT Surgery [facility] Operating Room [address] [place] [address] Rob Kline MD [address] [place] [address] URETEROSCOPY Scheduled Procedures Name Priority Associated Diagnoses [...] COVID: Suspected 12/06/2019 12/06/2019 12/20/2019 3:05 AM HANDLE ASSEMBLER COVID: Suspected 01/14/2021 01/14/2021 01/14/2021 9:43 PM HANDLE ASSEMBLER COVID: Suspected 01/17/2021 01/17/2021 01/18/2021 5:33 AM HANDLE ASSEMBLER COVID: Suspected 08/06/2021 08/06/2021 08/07/2021 3:05 AM CDT COVID: Suspected 08/06/2021 08/06/2021 08/07/2021 3:18 AM CDT COVID19 08/06/2021 08/06/2021 08/16/2021 3:05 AM CDT COVID: Recovered Comment:Added based on recent COVID infection. 08/16/2021 08/16/2021 12/14/2021 3:05 AM C DT COVID: Suspected 09/23/2021 09/23/2021 09/23/2021 10:56 PM CDT COVID: Suspected 09/29/2021 09/29/2021 09/29/2021 10:32 PM CDT COVID: Suspected 12/24/2021 12/25/2021 12/25/2021 3:05 AM HANDLE ASSEMBLER COVID: Suspected 12/25/2021 12/25/2021 12/26/2021 3:05 AM HANDLE ASSEMBLER COVID: Suspected 12/25/2021 12/25/2021 12/26/2021 3:49 PM HANDLE ASSEMBLER MDR gram neg/ESBL 2024 2024 documented as of this encounter Care Teams Court Manager Relationship Specialty Start Date End Date Yancy Guerrero MD [address] [place] [address] PCP - General 05/22/16 Lupillo Reyes MD [address] [address] Consulting Physician Orthopedic Surgery 07/26/22 documented as of this encounter
--- OUTSIDE RECORDS SUMMARY | 2024-07-18 11:36 | XMS_ITS | Continuity of Care Document ---
Author Organization [facility] Address [address] [facility] [address] [place] [address] Phone Care Team Providers Care Team Foreman Name Role Phone Lupillo Reyes MD Unavailable [...] Date Provider Providers Copied on Encounter Orthopedic [facility] Review Source [facility], [address], [id number], [place] [phone] Orthopedic [facility] Review Source [facility] No Information 4 Eric Wesley. [address] [place] [address], [place], [place], [id number] , [place]. tel: [phone] [facility] Review Source [facility], [address], [id number], [place] tel:[phone] [facility] Review Source [facility] No Information 4 Eric Wesley. [address], [id number] , [place]. tel: [phone] Office/outpat ient visit,est, [facility] Review Source [facility], [address], [id number], [place] [phone] Rt Shoulder (chief complaint) Complete rotatr-cuff tear/ruptr of r shoulder, not trauma 4 Eric Wesley. [address], [id number] , [place]. tel: [phone] Office/outpat ient visit,est, [facility] Review Source [facility], [address], [id number], [place] tel:[phone] Right shoulder (chief complaint) Complete rotatr-cuff tear/ruptr of r shoulder, not trauma 3 Eric Wesley. [address] [facility], [place] [address], [place], [place], [id number] , [place]. tel: [phone] Office/outpat ient visit,est, [facility] Review Source [facility], [address], [id number], [place] tel:[phone] Follow up (chief complaint) Complete rotatr-cuff tear/ruptr of r shoulder, not trauma 3 Eric Wesley. [address] [facility], [place] [address], [place], [place], [id number] , [place]. tel: [phone] Office/outpat ient visit,est, mod [facility], [address] [place] [address], [place], [place], [id number], [place] tel:[phone] [facility] [place] Post op check up (chief complaint) Complete rotatr-cuff tear/ruptr of r shoulder, not trauma 3 Eric Wesley. [address] [facility], [place] [address], [place], [place], [id number] , [place]. tel: [phone] [facility], [address] [place] [address], [id number], [place] tel:[phone] [facility] Right shoulder (chief complaint) Complete rotatr-cuff tear/ruptr of r shoulder, not trauma 3 Eric Wesley. [address] [facility], [place] [address], [place], [place], [id number] , [place]. tel: [phone] [facility] Review Source [facility], [address], [id number], [place] tel:[phone] [facility] Right shoulder (chief complaint) Complete rotatr-cuff tear/ruptr of r shoulder, not trauma 3 Eric Wesley. [address] [facility], [address], [id number] , [place]. tel: [phone] [facility], [address] [place] [address], [id number], [place] tel:[phone] [facility] Review Source [facility] No Information 3 Eric Wesley. [address] [facility], [place] [address], [place], [place], [id number] , [place]. tel: [phone] [facility], [address] [place] [address], [id number], [place] tel:[phone] [facility] Review Source [facility] Complete rotatr-cuff tear/ruptr of r shoulder, not trauma 3 Eric Wesley. [address], [place], [place], [id number] , [place]. tel:[phone] Office consultation, moderate [facility], [address] [facility], [place], [place], [id number], [place] tel:[phone] [facility] Right shoulder muscle tear/pain (chief complaint) Complete rotatr-cuff tear/ruptr of r shoulder, not trauma 3 Eric Lupillo. [address], [address], [place], [place], [id number] , [place]. [phone] Referring Provider: Lupillo Mueller, [address] [facility] [address], [place], [address] . tel:[phone] Family History Family Member Type Diagnosis Age [...] type Covered constitution party ID Authoriza tion(s) [facility] Workers Compensation Adm WC [id number] Social History Type Description Quantity Date [...]
--- OUTSIDE RECORDS SUMMARY | 2024-07-18 11:36 | XMS_ITS | Clinical Summary ---
Author Organization [facility] Address [address] [place] [address] Care Team Providers Care Accounts Collector Name Role Phone Yancy Guerrero MD Primary Care Provider + [phone] Lupillo Reyes MD Unavailable [phone] Allergies No known active allergies Medications citalopram [...] anxiety/depression, AF (Xarelto), HTN, HLD transferred from [facility] for higher level of care. Had Right [...] 03/21/2023 Assessment & Plan (03/23/2023 7:20 AM [employer]): Atenolol resumed with reasonable control Continue to hold Dyazide and losartan until outpatient follow-up HLD (hyperlipidemia) 03/21/2023 Assessment & Plan (03/22/2023 2:05 PM [employer] Continue atorvastatin Transaminases have normalized. Depression with anxiety 03/21/2023 Assessment & Plan (03/23/2023 7:20 AM [employer] Cont citalopram 40mg daily and lorazepam 0.5mg BID Resolved Problems Problem Noted Date Diagnosed Date Resolved Date Hypotension 03/21/2023 03/22/2023 Assessment & Plan (03/21/2023 8:09 PM [employer]): - Presenting with BP 80/50s in setting of reduced PO intake and ongoing BP meds - (+)orthostatics on presentation - Hold BP meds, check orthostatics in AM - Restart meds as needed Headache 03/21/2023 03/22/2023 Assessment & Plan (03/21/2023 8:10 PM [employer]): - Tylenol ordered; avoid NSAIDs Weakness 03/21/2023 03/23/2023 Assessment & Plan (03/22/2023 2:06 PM [employer]): TSH and B12 within acceptable limits. Monitor symptoms as blood pressure and renal function recover Nausea 03/21/2023 03/22/2023 Assessment & Plan (03/21/2023 8:10 PM [employer]): - Zofran ordered SUN (acute kidney injury) 03/21/2023 Assessment & Plan (03/23/2023 7:19 AM [employer]): Creatinine improved today Check renal function and electrolytes in outpatient follow-up Continue to hold Dyazide and losartan until outpatient follow-up. Abnormal transaminases 03/21/202303/22 Assessment & Plan (03/21/2023 8:11 PM [employer]): - Elevated in setting of recent viral infection and presumed hypovolemia - Trend in AM - if continues to be elevated consider hepatitis panel/HIV given occupation history Complete rupture of rotator cuff 07/13/2022 03/21/2023 Acute medial meniscus tear of left knee 06/25/2020 03/21/2023 Overview (06/25/2020): Added automatically from request for surgery [id number] Axillary mass, left 12/30/2016 03/21/19 24 Lipoma of forehead 11/23/2015 Pain in shoulder 11/12/2014 03/21/2023 Syncope 03/06/2013 03/21/2023 Encounters Date Type Department Care Team Description 07/11/2024 Telephone [facility] [address] [place] [address] Cassie Bee EMT 07/09/2024 2:00 PM CDT Pre-Admission Testing [facility] Pre Anesthesia Testing [facility] [address], [address] [place] [address] 07/09/2024 Telephone [facility] [address] [place] [address] Office Building [address] [place] [phone] Glenis Degroot LPN 07/09/2024 Telephone [facility] [address] [place] [phone] Armida Hughes, PURNIMA 07/01/2024 Orders Only [facility] [address] [place] [address] Office Building [address] [place] [phone] Chelsea Haywood MD Urinary tract infection without hematuria, site unspecified (Primary Dx) 06/28/2024 Results Follow-Up [facility] [address] [place] [address] 11th [place] [address] [place] [phone] Chelsea Haywood MD Urine culture Urine, bladder 06/28/2024 Telephone [facility]) [facility]rology [address] [place] [address] 11th [place] [address] [place] [phone] Erica Moore B.A. 06/27/2024 Telephone [facility] Case Management [address] [place] [phone] Dulce Maria Benites RN 06/26/2024 Orders Only [facility] Home Care Services [address] [place] [phone] Laurie Tierney, [facility] 06/24/2024 Telephone [facility] [address] [facility] 8th [place] [address] [place] [address] Pat Calvo 06/24/2024 Documentation [facility] [address] [facility] [place] [facility] Medical Office Building [address] [place] [phone] Chelsea Haywood MD 2024 2:38 PM CDT Anesthesia Event [facility] Operating Room [address] [place] [phone] Jyothi Roque MD Jablonski, Melody A., NP 2024 2:02 PM CDT - 2024 3:07 PM CDT Surgery [facility] Operating Room [address] [place] [phone] Chelsea Haywood MD CYSTOSCOPY PLACEMENT URETERAL STENT 06/20/2024 10:10 PM CDT - 06/26/2024 6:14 PM CDT Hospital Encounter [facility] [address] [place] [address] Carlos Palomares MD Baiocco, Joseph, MD Sepsis without acute organ dysfunction, due to unspecified organism (HCC) (Primary Dx); Kidney stone; Bradycardia; Pyelonephritis of right kidney Discharge Disposition: Discharge to home, home health skilled care 06/20/2024 Hospital Encounter [facility] ADMIT [address] [place] [address] 06/17/2024 Telephone [facility] [address] [facility] [place] [facility] 2nd Floor [address] [place] [address] Cheryl Trujillo RN WC Intake Form 06/04/2024 Telephone [facility] [address] [facility] [place] [facility] 2nd Floor [address] [place] [phone] Cheryl Trujillo RN from Last 3 Months [...] = 0.6 oz pur e alcohol) socially [place] Utilities Answer Date Recorded In the past 12 months has [email or web address], gas, oil, or water [employer] threatened to shut off services in your [...] How often do you attend chur or yazdanism services? More than 4 times per year 06/02/2023 Do you belong to any clubs o r organizations such as methodist groups, unions, fraternal or athletic groups, or [...] place to sleep or slept in a long term (including now)? No 06/02/2023 Personal Safety Answer Date Recorded Have you ever been in or are you currently in a harmful physical or emotional relationship or is someone making you feel afraid or unsafe? 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 [employer] Gender Identity Not on file Sexual Orientation [...] Description 07/19/2024 12:00 PM CDT Hospital Encounter [facility] Operating Room [address] [place] [address] Rob Kline MD [address] [facility] [place] [place] [address] 07/19/2024 12:00 PM CDT Anesthesia Event [facility] Operating Room [address] [place] [address] Nabila Martinez, YENI [address] [place] [address] [place] [address] 07/19/2024 12:00 PM CDT - 07/19/2024 1:00 PM CDT Surgery [facility] Operating Room [address] [place] [address] Rob Kline MD [address] [facility] [place] [place] [address] URETEROSCOPY Scheduled Procedures Name Priority Associated Diagnoses [...] Completed 2024 Medical Devices Implanted Type Area Exercise Physiology Professor Device Identifier Shelf Expiration Date Model / Serial / Lot AB [employer] Universa 6fr 24cm Radiopaque Graduate Firm Monofilament Tether [id number] - [id number] Implanted:Qty: 1 on 2024 by Chelsea Haywood MD at [facility] Stent Right: Ureter [employer] [id number] 12/28/2026 [id number] / / [id number] [employer] Corkscrew Tigertail 5.5mm 14.7[address] Mechanism Vent 2 Square Ar-1927bcft - [id number] Implanted:Qty: 1 on 07/26/2022 by Lupillo Reyes MD at [facility] Right: Shoulder [employer] 02/13/2024 AR-1927B CFT / / [id number] [employer] Corkscrew Tigertail 5.5mm 14.7[address] Drive Mechanism Vent 2 Square Ar-1927bcft - [id number] Implanted:Qty: 1 on 07/26/2022 by Lupillo Reyes MD at [facility] Right: Shoulder [employer] 11/12/2024 AR-1927B CFT / / [id number] [employer] Swivelock C 4.75mm 19.1mm Closed Eyelet Vent [place] Suture Ar-2324bcc - [id number] Implanted:Qty: 1 on 07/26/2022 by Lupillo Reyes MD at [facility] Right: Shoulder [employer] 02/12/2026 AR-2324B CC / / [id number] Procedures Procedure Name Priority Date/Time Associated Diagnosis [...] CDT Kidney stone Case Notes Poc; Elian [phone] CYSTOSCOPY PLACEMENT URETERAL STENT 2024 2:43 PM CDT Kidney stone Case Notes Poc; Elian [phone] EGFR STAT 2024 1:07 PM CDT LACTATE [...] ORDERABLES Final Res ult Performing Organization Address City/[facility]/ZIP Co de Phone Number [facility] Department [place] [address] * (ABNORMAL) CBC without differential (06/25/2024 8:45 PM CDT) WBC 7.87 3.80 - 9.90 K/cumm Hgb 11.0(L) 11.9 - 15.5 g/dL [facility] Hct 32.9(L) 35.6 - 45.5 % [facility] Plt 385 150 - 400 K/cumm [facility] MPV 10.6 9.1 - 12.3 fL [facility] RBC 3.50(L) 3.90 - 5.20 M/cumm [facility] MCV 94.0 81.3 - 96.4 fL [facility] MCH 31.4 27.1 - 33.3 pg [facility] MCHC 33.4 32.3 - 35.7 g/dL [facility] RDW CV 14.4 11.1 - 14.9 % [facility] RDW SD 49.4(H) 35.7 - 48.1 fL [facility] NRBC abs 0.00 0.00 - 0.01 K/cumm [facility] Blood 06/25/2024 8:45 PM CDT 06/25/2024 9:59 PM CDT us Braeden Alcantar MD LAB BLOOD ORDERABLES Final Res ult [facility] [place] [address] * Phosphorus (06/25/2024 8:45 PM CDT) [facility] Phosphorus, pl 2.8 2.3 - 4.5 mg/dL Blood 06/25/2024 8:45 PM CDT 06/25/2024 9:43 PM CDT Braeden Alcantar MD LAB BLOOD ORDERABLES Final Res ult Performing Organization Address [facility] Co de Phone Number [facility] [place] [address] * Magnesium (06/25/2024 8:45 PM CDT) [facility] Magnesium 2.0 1.4 - 2.5 mg/dL Blood 06/25/2024 8:45 PM CDT 06/25/2024 9:43 PM CDT Braeden Alcantar MD LAB BLOOD ORDERABLES Final Res ult Performing Organization Address [facility] Co de Phone Number [facility] [place] [address] * Basic metabolic panel (06/25/2024 8:45 PM CDT) [facility] Sodium 139 135 - 145 mmol/L Potassium, pl 3.7 3.3 - 4.9 mmol/L [facility] Chloride 101 97 - 110 mmol/L [facility] CO2 30 22 - 32 mmol/L [facility] Anion gap 8 2 - 15 mmol/L [facility] BUN 11 6 - 25 mg/dL [facility] Creatinine 0.73 0.60 - 1.10 mg/dL [facility] Glucose 137 70 - 199 mg/dL [facility] Comment: Interpretive Data Fasting glucose >/= 126 [...] Calcium 9.2 8.5 - 10.3 mg/dL [facility] Blood 06/25/2024 8:45 PM CDT 06/25/2024 9:43 PM CDT Braeden Alcantar MD LAB BLOOD ORDERABLES Final Res ult [facility] Department [place] [address] * eGFR (06/24/2024 9:08 PM CDT) eGFR [...] MD LAB BLOOD ORDERABLES Final Res ult [facility] [place] [address] * (ABNORMAL) CBC without differential (06/24/2024 9:08 PM CDT) Pathologist [facility] WBC 8.12 3.80 - 9.90 K/cumm Hgb 10.9(L) 11.9 - 15.5 g/dL [facility] Hct 31.5(L) 35.6 - 45.5 % [facility] Plt 291 150 - 400 K/cumm [facility] MPV 11.0 9.1 - 12.3 fL [facility] RBC 3.43(L) 3.90 - 5.20 M/cumm [facility] MCV 91.8 81.3 - 96.4 fL [facility] MCH 31.8 27.1 - 33.3 pg [facility] MCHC 34.6 32.3 - 35.7 g/dL [facility] RDW CV 14.1 11.1 - 14.9 % [facility] RDW SD 47.6 35.7 - 48.1 fL [facility] NRBC abs 0.00 0.00 - 0.01 K/cumm [facility] Blood 06/24/2024 9:08 PM CDT 06/24/2024 10:07 PM CDT Braeden Alcantar MD LAB BLOOD ORDERABLES Final Res ult [facility] Department [place] [address] * Phosphorus (06/24/2024 9:08 PM CDT) Pathologist [facility] Phosphorus, pl 2.9 2.3 - 4.5 mg/dL Blood 06/24/2024 9:08 PM CDT 06/24/2024 9:47 PM CDT Braeden Alcantar MD LAB BLOOD ORDERABLES Final Res ult Performing Organization Address City/[facility]/ZIP Co de Phone Number [facility] One [facility] [employer] [place] [place] [address] * Magnesium (06/24/2024 9:08 PM CDT) Pathologist [facility] Magnesium 1.8 1.4 - 2.5 mg/dL Blood 06/24/2024 9:08 PM CDT 06/24/2024 9:47 PM CDT Braeden Alcantar MD LAB BLOOD ORDERABLES Final Res ult Performing Organization Address [facility] Co de Phone Number [facility] [employer] [place] [place] [address] * Basic metabolic panel (06/24/2024 9:08 PM CDT) [facility] Sodium 141 135 - 145 mmol/L Potassium, pl 3.6 3.3 - 4.9 mmol/L [facility] Chloride 103 97 - 110 mmol/L [facility] CO2 30 22 - 32 mmol/L [facility] Anion gap 8 2 - 15 mmol/L [facility] BUN 8 6 - 25 mg/dL [facility] Creatinine 0.67 0.60 - 1.10 mg/dL [facility] Glucose 155 70 - 199 mg/dL [facility] Comment: Interpretive Data Fasting glucose >/= 126 [...] 2022. Calcium 8.8 8.5 - 10.3 mg/dL [facility] Blood 06/24/2024 9:08 PM CDT 06/24/2024 9:47 PM CDT us Braeden Alcantar MD LAB BLOOD ORDERABLES Final Res ult [facility] Department [place] [address] * TRANSTHORACIC ECHO (TTE) COMPLETE W DOPPLER/CF W CONTRAST (06/24/2024 2:47 PM CDT) Estimated EF 55-60 % CONS SCIMAGE EF Mod BP 68 % CONS SCIMAGE Anatomical Region Laterality Modality Ultrasound 06/24/2024 1:39 PM CDT Narrative 06/24/2024 3:12 PM CDT [facility] [place] [address] Transthoracic Echocardiographic Report Patient Name: JULI KOO J : 1960 (64y ) Gender: F Study Date: 06/24/2024 01:39:40 PM Ht(Inch): 65 Wt(Lb): 201.06 BSA: 2.05 Monument Setter Helper: Renita Rosado RDCS Location: [id number] Order Provider: DONNY CARRANZA BMI: 33.45 BP: [...] Carrion MD PhD - 06/24/2024 [facility] Card[facility] [place] [address] Transthoracic Echocardiographic Report Patient Name: JULI KOO J : 1960 (64y ) Gender: F Study Date: 06/24/2024 01:39:40 PM Ht(Inch): 65 Wt(Lb): 201.06 BSA: 2.05 Monument Setter Helper: Renita Rosado RDCS Location: [id number] Order Provider:DONNY CARRANZA BMI: 33.45 BP: 123 [...] LAB BLOOD ORDERABLES Final Res ult [facility] Department [place] [address] * (ABNORMAL) CBC without differential (06/23/2024 9:45 PM CDT) WBC 7.48 3.80 - 9.90 K/cumm Hgb 10.6(L) 11.9 - 15.5 g/dL [facility] Hct 30.7(L) 35.6 - 45.5 % [facility] Plt 223 150 - 400 K/cumm [facility] MPV 10.9 9.1 - 12.3 fL [facility] RBC 3.32(L) 3.90 - 5.20 M/cumm [facility] MCV 92.5 81.3 - 96.4 fL [facility] MCH 31.9 27.1 - 33.3 pg [facility] MCHC 34.5 32.3 - 35.7 g/dL [facility] RDW CV 14.1 11.1 - 14.9 % [facility] RDW SD 47.7 35.7 - 48.1 fL [facility] NRBC abs 0.00 0.00 - 0.01 K/cumm [facility] Blood 06/23/2024 9:45 PM CDT 06/23/2024 10:21 PM CDT Braeden Alcantar MD LAB BLOOD ORDERABLES Final Res ult [facility] of [place] [employer] [address] * Phosphorus (06/23/2024 9:45 PM CDT) Pathologist [facility] Phosphorus, pl 2.9 2.3 - 4.5 mg/dL Blood 06/23/2024 9:45 PM CDT 06/23/2024 10:22 PM CDT Braeden Alcantar MD LAB BLOOD ORDERABLES Final Res ult [facility] [place] [address] * Magnesium (06/23/2024 9:45 PM CDT) Pathologist [facility] Magnesium 1.5 1.4 - 2.5 mg/dL Blood 06/23/2024 9:45 PM CDT 06/23/2024 10:22 PM CDT Braeden Alcantar MD LAB BLOOD ORDERABLES Final Res ult [facility] Department [place] [address] * (ABNORMAL) Basic metabolic panel (06/23/2024 9:45 PM CDT) [facility] Sodium 138 135 - 145 mmol/L Potassium, pl 2.8(L) 3.3 - 4.9 mmol/L [facility] Chloride 105 97 - 110 mmol/L [facility] CO2 25 22 - 32 mmol/L [facility] Anion gap 8 2 - 15 mmol/L [facility] BUN 8 6 - 25 mg/dL [facility] Creatinine 0.82 0.60 - 1.10 mg/dL [facility] Glucose 91 70 - 199 mg/dL [facility] Comment: Interpretive Data Fasting glucose >/= 126 [...] 2022. Calcium 8.4(L) 8.5 - 10.3 mg/dL [facility] Blood 06/23/2024 9:45 PM CDT 06/23/2024 10:22 PM CDT Braeden Alcantar MD LAB BLOOD ORDERABLES Final Res ult Performing Organization Address [facility]/ZIP Co de Phone Number [facility] of [place] [employer] [place] [address] * Critical Care (06/23/2024 9:12 AM CDT) Narrative Kecia Troy MD - 06/23/2024 9:12 AM CDT Kecia Troy MD 06/23/2024 4:13 PM Critical Care Performed by: Donny Carranza NP Authorized by: Donny Carranza NP CRITICAL CARE: Team: [place] Shift: AM Level of Billing: Subsequent Hospital [...] plan with the patient's team and other medical/technical services consultant staff. This time was in addition to and separate from care provided by other practitioners on this day of service. I spent time reviewing and interpreting data from bedside monitors, laboratory results, and imaging, I spent time discussing the management of this critically ill patient with consultants and the medical staff and I spent time documenting in the medical record Donny Carranza PATHOLOGY SECRETARY IN CLINIC/BEDSIDE JOSE MARR Final Result [...] ORDERABLES Final Res ult Performing Organization Address [facility] Co de Phone Number [facility] [place] [address] * (ABNORMAL) CBC without differential (06/22/2024 7:55 PM CDT) [facility] WBC 7.81 3.80 - 9.90 K/cumm Hgb 11.1(L) 11.9 - 15.5 g/dL [facility] Hct 33.1(L) 35.6 - 45.5 % [facility] Plt 180 150 - 400 K/cumm [facility] MPV 11.1 9.1 - 12.3 fL [facility] RBC 3.51(L) 3.90 - 5.20 M/cumm [facility] MCV 94.3 81.3 - 96.4 fL [facility] MCH 31.6 27.1 - 33.3 pg [facility] MCHC 33.5 32.3 - 35.7 g/dL [facility] RDW CV 14.3 11.1 - 14.9 % [facility] RDW SD 48.6(H) 35.7 - 48.1 fL [facility] NRBC abs 0.00 0.00 - 0.01 K/cumm [facility] Blood 06/22/2024 7:55 PM CDT 06/22/2024 9:23 PM CDT Braeden Alcantar MD LAB BLOOD ORDERABLES Final Res ult Performing Organization Address City/[facility]/ZIP Co de Phone Number [facility] [place] [address] * (ABNORMAL) Phosphorus (06/22/2024 7:55 PM CDT) [facility] Phosphorus, pl 2.2(L) 2.3 - 4.5 mg/dL Blood 06/22/2024 7:55 PM CDT 06/22/2024 8:52 PM CDT Braeden Alcantar MD LAB BLOOD ORDERABLES Final Res ult Performing Organization Address City/[facility]/ZIP Co de Phone Number [facility] Department [place] [address] * Magnesium (06/22/2024 7:55 PM CDT) [facility] Magnesium 2.1 1.4 - 2.5 mg/dL Blood 06/22/2024 7:55 PM CDT 06/22/2024 8:52 PM CDT Braeden Alcantar MD LAB BLOOD ORDERABLES Final Res ult Performing Organization Address [facility] de Phone Number [facility] [place] [address] * (ABNORMAL) Basic metabolic panel (06/22/2024 7:55 PM CDT) [facility] Sodium 136 135 - 145 mmol/L Potassium, pl 4.1 3.3 - 4.9 mmol/L [facility] Chloride 106 97 - 110 mmol/L [facility] CO2 20(L) 22 - 32 mmol/L [facility] Anion gap 10 2 - 15 mmol/L [facility] BUN 15 6 - 25 mg/dL [facility] Creatinine 0.82 0.60 - 1.10 mg/dL [facility] Glucose 146 70 - 199 mg/dL [facility] Comment: Interpretive Data Fasting glucose >/= 126 [...] 8.5 - 10.3 mg/dL [facility] Blood 06/22/2024 7:55 PM CDT 06/22/2024 8:52 PM CDT us Braeden Alcantar MD LAB BLOOD ORDERABLES Final Res ult [facility] Department [place] [address] * Critical Care (06/22/2024 6:39 PM CDT) Narrative Benjy Godinez MD PhD - 06/22/2024 6:39 PM CDT Benjy Godinez MD PhD 06/23/2024 9:03 PM Critical Care Performed by: Asmita Sarabia NP Authorized by: Asmita Sarabia NP CRITICAL CARE: Team: KEN Shift: PM Level of Billing: Subsequent Hospital [...] plan with the patient's team and other medical/technical services consultant staff. This time was in addition to and separate from care provided by other practitioners on this day of service. I spent time reviewing and interpreting data from bedside monitors, laboratory results, and imaging and I spent time documenting in the medical record us Asmita Sarabia PATHOLOGY SECRETARY IN CLINIC/BEDSIDE O RDERABLES Final Result [...] plan with the patient's team and other medical/technical services consultant staff. This time was in addition [...] in the medical record us Donny Carranza PATHOLOGY SECRETARY IN CLINIC/BEDSIDE JOSE MARR Final Result * (ABNORMAL) Vancomycin level trough Draw prior to giving vancomycin dose (06/22/2024 5:01 AM CDT) Pathologist [facility] Vancomycin trough 6.8(L) 10.0 - 20.0 mcg/mL Blood 06/22/2024 5:01 AM CDT 06/22/2024 5:14 AM CDT Narrative [facility] - 06/22/2024 6:29 AM CDT Draw prior to giving vancomycin dose us Lyla Jenkins NP LAB BLOOD ORDERABLES Final Res ult [facility] Department [place] [address] * ECG 12 lead (2024 10:48 PM CDT) Pathologist [facility] Ventricular Rate EKG/Min 56 BPM [facility] Atrial Rate 56 BPM [facility] VT-Interval (MSEC) 148 ms [facility] QRS-Interval (MSEC) 84 ms [facility] QT-Interval (MSEC) 530 ms [facility] QTc 511 ms [facility] P [place] 42 degrees [facility] R [place] -13 degrees [facility] T [place] 23 degrees [facility] Diagnosis Sinus bradycardia Prolonged QT Abnormal ECG Confirmed by Abdelrahman Chowdhury MD ([id number]) on 06/24/2024 6:54:15 PM [facility] 2024 10:4 8 PM CDT 06/24/2024 6:54 PM CDT Braeden Alcantar MD ECG ORDERABLES Final Result Performing Organization Address [facility]/ZIP Co de Phone Number [facility] * (ABNORMAL) POC Blood Gas and Chemistries, Arterial - (2024 9:59 PM CDT) pH, Art POC 7.34(L) 7.35 - 7.45 pCO2, Art POC 33(L) 35 - 45 mmHg [facility] pO2, Art POC 83 83 - 108 mmHg [facility] Na, POC 135 135 - 145 mmol/L [facility] K POC 3.7 3.3 - 4.9 mmol/L [facility] Comment: Interpretive Data Not all point of care methods assess for hemolysis. Confirm with instrument and retest K+ if not consistent with clinical signs and symptoms. Current Interpretive Data was last revised on 2023. Cl, POC 109 97 - 110 mmol/L [facility] Ionized Ca, POC 5.02 4.50 - 5.10 mg/dL [facility] Glucose, POC 155 70 - 199 mg/dL [facility] [facility] Lactate POC 0.6(L) 0.7 - 2.0 mmol/L [facility] SO2 (chay) arterial 98(H) 90 - 95 % [facility] Base excess, POC -7.1 mmol/L [facility] HCO3, Art POC 18(L) 20 - 30 mmol/L [facility] Hct, POC 32.0(L) 36.3 - 45.3 % [facility] Total Hb, POC 10.6(L) 11.9 - 15.5 g/dL [facility] Blood 2024 9:59 PM CDT 2024 9:59 PM CDT Braeden Alcantar MD LAB POCT ORDERABLES - DEVICE F inal Result [facility] Department [place] [address] * XR Abdomen Ap 1 Vw (2024 [...] fracture. Electronically signed by: Rose Stephen M.D. Bareden Alcantar MD IMG XR PROCEDURES Final Result [...] PM CDT Devon [facility] LAB MICROBIOLOGY - [facility] AL ORDERABLES [place] [address] * Hepatitis C antibody Blood (2024 5:02 PM CDT) [facility] Hep C Ab Nonreactive Nonreactive Comment:Antibodies to HCV no t detected. Does NOT exclude the possibility of recent exposure to HCV. Current interpretive data was last revised on 21 Blood 2024 5:02 PM CDT 2024 5:30 PM CDT Devon [facility] LAB MICROBIOLOGY - GENER AL ORDERABLES Final Result Performing Organization Address City/[facility] Co de Phone Number [facility] [address] * RPR Blood (2024 5:02 PM CDT) [facility] RPR Nonreactive Nonreactive Blood 2024 5:02 PM CDT 2024 5:30 PM CDT us Devon [facility] LAB MICROBIOLOGY - GENER AL ORDERABLES Final Result Performing Organization Address City/[facility] Co de Phone Number [facility] [employer] [place] [address] * Hepatitis B Surface Antigen Blood (2024 5:02 PM CDT) [facility] HepBsAg Nonreactive Nonreactive Blood 2024 5:02 PM CDT 2024 5:30 PM CDT Devon [facility] LAB MICROBIOLOGY - GENER AL ORDERABLES Final Result Performing Organization Address City/[facility] [place] [address] * Lactate (2024 5:00 PM CDT) Lactate 0.7 0.7 - 2.0 mmol/L Blood 2024 5:00 PM CDT 2024 5:31 PM CDT Braeden Alcantar MD LAB BLOOD ORDERABLES Final Res ult Performing Organization Address City/[facility]/ZIP Co de Phone Number [facility] Department of [employer] [address] * (ABNORMAL) eGFR (2024 5:00 PM CDT) [...] [facility] Department of [place] [employer] [address] * (ABNORMAL) Calcium, ionized (2024 5:00 PM CDT) [facility] Calcium, Ionized 4.43(L) 4.50 - 5.10 mg/dL Blood 2024 5:00 PM CDT 2024 5:37 PM CDT Braeden Alcantar MD LAB BLOOD ORDERABLES Final Res ult Performing Organization Address [facility]/ZIP Co de Phone Number [facility] [place] [employer] [place] [address] * (ABNORMAL) CBC without differential (2024 5:00 PM CDT) [facility] WBC 7.37 3.80 - 9.90 K/cumm Hgb 10.2(L) 11.9 - 15.5 g/dL [facility] Hct 29.8(L) 35.6 - 45.5 % [facility] Plt 152 150 - 400 K/cumm [facility] MPV 10.9 9.1 - 12.3 fL [facility] RBC 3.20(L) 3.90 - 5.20 M/cumm [facility] MCV 93.1 81.3 - 96.4 fL [facility] MCH 31.9 27.1 - 33.3 pg [facility] MCHC 34.2 32.3 - 35.7 g/dL [facility] RDW CV 14.2 11.1 - 14.9 % [facility] RDW SD 49.1(H) 35.7 - 48.1 fL [facility] NRBC abs 0.00 0.00 - 0.01 K/cumm [facility] Blood 2024 5:00 PM CDT 2024 5:30 PM CDT Braeden Alcantar MD LAB BLOOD ORDERABLES Final Res ult Performing Organization Address City/[facility]/ZIP Co de Phone Number [facility] [place] [employer] [place] [address] * Phosphorus (2024 5:00 PM CDT) Phosphorus, pl 2.6 2.3 - 4.5 mg/dL Blood 2024 5:00 PM CDT 2024 5:37 PM CDT Braeden Alcantar MD LAB BLOOD ORDERABLES Final Res ult Performing Organization Address [facility] de Phone Number [facility] Department [place] [address] * Magnesium (2024 5:00 PM CDT) Pathologist [facility] Magnesium 1.7 1.4 - 2.5 mg/dL Blood 2024 5:00 PM CDT 2024 5:37 PM CDT Braeden Alcantar MD LAB BLOOD ORDERABLES Final Res ult Performing Organization Address [facility] de Phone Number [facility] [place] [address] * (ABNORMAL) Blood gas, arterial (2024 5:00 PM CDT) Pathologist [facility] pH, Art 7.36 7.35 - 7.45 PCO2, Arterial 34(L) 35 - 45 mmHg [facility] PO2, Arterial 125(H) 83 - 108 mmHg [facility] HCO3 Art (Calculated) 20 20 - 30 mmol/L [facility] BE, art -6 mmol/L [facility] Comment: Interpretive Data No Reference Range Established Current Interpretive Data was last revised on 2017 O2 Sat Art (Measured) 98(H) 90 - 95 % [facility] Blood 2024 5:00 PM CDT 2024 5:22 PM CDT Braeden Alcantar MD LAB BLOOD ORDERABLES Final Res ult Performing Organization Address [facility] de Phone Number [facility] Department [place] [address] * (ABNORMAL) Basic metabolic panel (2024 5:00 PM CDT) Pathologist [facility] Sodium 142 135 - 145 mmol/L Potassium, pl 3.1(L) 3.3 - 4.9 mmol/L [facility] Chloride 107 97 - 110 mmol/L [facility] CO2 23 22 - 32 mmol/L [facility] Anion gap 12 2 - 15 mmol/L [facility] BUN 15 6 - 25 mg/dL [facility] Creatinine 1.12(H) 0.60 - 1.10 mg/dL [facility] Glucose 126 70 - 199 mg/dL [facility] Comment: Interpretive Data Fasting glucose >/= 126 [...] 2022. Calcium 8.1(L) 8.5 - 10.3 mg/dL [facility] Blood 2024 5:00 PM CDT 2024 5:37 PM CDT us Braeden Alcantar MD LAB BLOOD ORDERABLES Final Res ult Performing Organization Address [facility] Co de Phone Number [facility] Department [place] [address] * ECG 12 lead (2024 4:29 PM CDT) Ventricular Rate EKG/Min 63 BPM [facility] Atrial Rate 63 BPM [facility] VT-Interval (MSEC) 144 ms [facility] QRS-Interval (MSEC) 86 ms [facility] QT-Interval (MSEC) 498 ms [facility] QTc 509 ms [facility] P [place] 17 degrees [facility] R [place] -22 degrees [facility] T [place] 12 degrees [facility] Diagnosis Normal sinus rhythm Minimal voltage criteria for LVH, may be normal variant Prolonged QT Abnormal ECG Confirmed by Abdelrahman Chowdhury MD ([id number]) on 06/24/2024 6:57:56 PM [facility] 2024 4:29 PM CDT 06/24/2024 6:57 PM CDT us Braeden Alcantar MD ECG ORDERABLES Final Result [facility] * (ABNORMAL) POC Blood Gas and Chemistries, Arterial - (2024 3:47 PM CDT) pH, Art POC 7.42 7.35 - 7.45 pCO2, Art POC 31(L) 35 - 45 mmHg [facility] pO2, Art POC 158(H) 83 - 108 mmHg [facility] Na, POC 139 135 - 145 mmol/L [facility] K POC 2.9(L) 3.3 - 4.9 mmol/L [facility] Comment: Interpretive Data Not all point of care methods assess for hemolysis. Confirm with instrument and retest K+ if not consistent with clinical signs and symptoms. Current Interpretive Data was last revised on 2023. Cl, POC 112(H) 97 - 110 mmol/L [facility] Ionized Ca, POC 4.44(L) 4.50 - 5.10 mg/dL [facility] Glucose, POC 116 70 - 199 mg/dL [facility] Lactate POC 1.2 0.7 - 2.0 mmol/L [facility] SO2 (chay) arterial 100(H) 90 - 95 % [facility] Base excess, POC -3.6 mmol/L [facility] HCO3, Art POC 20 20 - 30 mmol/L [facility] Hct, POC 31.0(L) 36.3 - 45.3 % [facility] Total Hb, POC 10.3(L) 11.9 - 15.5 g/dL [facility] Blood 2024 3:47 PM CDT 2024 3:47 PM CDT Braeden Alcantar MD LAB POCT ORDERABLES - DEVICE F inal Result Performing Organization Address [facility] Co de Phone Number [facility] Department [place] [address] * FL Fluoroscopy < 1 Hour (2024 3:20 PM CDT) Narrative [facility] - 2024 3:20 PM CDT The images from this study are not interpreted by Radiology. Please refer to the physician's procedure / OR operative note. Chelsea Haywood MD IMG FLUOROSCOPY PROCEDURES Fin al Result Performing Organization Address [facility] de Phone Number [facility] * (ABNORMAL) Urine culture Urine, bladder (2024 [...] (clinically insignificant growth. (.) Organism ESCHERICHIA COLI [facility] Urine, bladder 2024 3: 20 PM CDT 2024 5:31 PM CDT Narrative [facility] - 06/27/2024 10:28 AM CDT URINE CULTURE Indications for Culture:->Urology patient Testing performed by [facility] Microbiology Laboratory ([phone]) Organism Antibiotic Method Susceptibility Escherichia coli Ampicillin [...] Edited Result - Final Performing Organization Address [facility] Co de Phone Number [facility] Department [place] [address] * Lactate (2024 1:07 PM CDT) Lactate 0.8 0.7 - 2.0 mmol/L Blood 2024 1:07 PM CDT 2024 1:40 PM CDT Lyla Jenkins NP LAB BLOOD ORDERABLES Final Res ult Performing Organization Address [facility] de Phone Number [facility] Department of [place] [employer] [place] [address] * (ABNORMAL) eGFR (2024 1:07 PM CDT) [...] CDT 2024 2:06 PM CDT Lyla Jenkins PATHOLOGY SECRETARY LAB BLOOD ORDERABLES Final Res ult [facility] Department [place] [address] * (ABNORMAL) CBC without differential (2024 1:07 PM CDT) WBC 7.70 3.80 - 9.90 K/cumm Hgb 10.6(L) 11.9 - 15.5 g/dL [facility] Hct 30.6(L) 35.6 - 45.5 % [facility] Plt 161 150 - 400 K/cumm [facility] MPV 11.0 9.1 - 12.3 fL [facility] RBC 3.31(L) 3.90 - 5.20 M/cumm [facility] MCV 92.4 81.3 - 96.4 fL [facility] MCH 32.0 27.1 - 33.3 pg [facility] MCHC 34.6 32.3 - 35.7 g/dL [facility] RDW CV 14.3 11.1 - 14.9 % [facility] RDW SD 49.0(H) 35.7 - 48.1 fL [facility] NRBC abs 0.00 0.00 - 0.01 K/cumm [facility] Blood 2024 1:07 PM CDT 2024 2:06 PM CDT Lyla Jenkins PATHOLOGY SECRETARY LAB BLOOD ORDERABLES Final Res ult [facility] Department [place] [address] * (ABNORMAL) Basic metabolic panel (2024 1:07 PM CDT) Sodium 139 135 - 145 mmol/L Potassium, pl 3.3 3.3 - 4.9 mmol/L [facility] Chloride 108 97 - 110 mmol/L [facility] CO2 21(L) 22 - 32 mmol/L [facility] Anion gap 10 2 - 15 mmol/L [facility] BUN 16 6 - 25 mg/dL [facility] Creatinine 1.21(H) 0.60 - 1.10 mg/dL [facility] Glucose 100 70 - 199 mg/dL [facility] Comment: Interpretive Data Fasting glucose >/= 126 [...] 2022. Calcium 7.8(L) 8.5 - 10.3 mg/dL [facility] Blood 2024 1:07 PM CDT 2024 2:06 PM CDT us Lyla Jenkins PATHOLOGY SECRETARY LAB BLOOD ORDERABLES Final Res ult [facility] Department [place] [address] * Urine culture Urine, clean voided (2024 8:45 AM CDT) Pathologist [facility] Report Final Report: Less than 100,000 colonies/mL (clinically insignificant growth based on current clinical standards) Organism (CLINICALLY INSIGNIFICANT GROWTH [facility] Urine, clean voided 2024 8:45 AM CDT 2024 9:43 AM CDT Narrative [facility] - 06/22/2024 12:09 PM CDT Indications for Culture:->Recent positive UA Testing performed by [facility] Microbiology Laboratory ([phone]) Braeden Alcantar MD LAB MICROBIOLOGY - GENERAL ORD ERABLES Final Result Performing Organization Address [facility] Co de Phone Number [facility] Department [place] [address] * (ABNORMAL) Urinalysis reflex to microscopic (2024 8:32 AM CDT) Color, ur Yellow Yellow Clarity, ur Turbid(A) Clear [facility] Specific gravity, ur 1.017 1.003 - 1.030 [facility] pH, urine 6.0 [facility] Comment: Interpretive Data U rine pH is affected by diet, medications, systemic acid-base disturbances, and renal tubular function. pH may affect urinary stone formation. For example, urine pH below 6.0 may help reduce the tendency for calcium phosphate stones and pH greater than 6.0 may reduce the tendency for uric acid stone formation. Source: [facility] Current Interpretive Data was last revised on 2017 Protein, ur ql 2+(A) Negative [facility] Glucose, ur ql Negative Negative [facility] Ketones, ur 1+(A) Negative [facility] Bilirubin, ur Negative Negative [facility] Blood, ur 1+(A) Negative [facility] Urobilinogen, ur <2.0 <2.0 mg/dL [facility] Nitrite, ur Positive(A) Negative [facility] Leukocyte esterase, ur 3+(A) Negative [facility] UA reflex comment Reflex to microscopic UA will be performed. [facility] Urine 2024 8:32 AM CDT 2024 9:19 AM CDT Braeden Alcantar MD LAB URINE ORDERABLES Final Res ult Performing Organization Address City/[facility] Co de Phone Number [facility] [place] [address] * (ABNORMAL) Urinalysis, microscopic only (2024 8:32 AM CDT) WBC, ur >50(A) 0 - 5 /HPF RBC, ur 6-10(A) 0 - 2 /HPF [facility] Epithelial cells, squamous, ur 1-5 0 - 5 /HPF [facility] Bacteria, ur 4+(A) [facility] Urine 2024 8:32 AM CDT 2024 9:19 AM CDT Braeden Alcantar MD LAB URINE ORDERABLES Final Res ult Performing Organization Address [facility] Co de Phone Number [facility] [place] [address] * [place] Kidney Complete (2024 12:33 AM [...] CDT) ABO Rh A Negative [facility] OTHER 06/20/2024 11:1 3 PM CDT 06/20/2024 11:45 PM CDT us Carlos Palomares MD LAB BLOOD ORDERABLES Shanell l Result [facility] [place] [address] [facility] * XR Chest 1 Vw Portable (06/20/2024 [...] images may or may not represent [place] source data set and thus may contain [...] acute or suspicious osseous lesion. Procedure Note Dariela, Braeden Edward, MD PhD - 2024 EXAMINATION: RADIOLOGY CONSULTATION [...] images may or may not represent [place] source data set and thus may contain [...] only and have not been reviewed by [facility]. There will be no report generated by a [facility]iologist. Narrative [facility] - 06/20/2024 10:49 PM CDT EXAMINATION: Images For Reference Purposes Only Marc Grijalva MD IMG CT PROCEDURES Final Result [email or web address] * ECG 12-LEAD (06/20/2024 10:46 PM CDT) Narrative [facility] - 06/20/2024 10:46 PM CDT Carlos [...] evidence of acuteischemia. Carlos Palomares MD 06/20/24 [id number] Miko Edwards MD ECG ORDERABLES Final R esult Performing Organization Address [facility] Co de Phone Number [facility] * Sepsis Lactate w/ Reflex (06/20/2024 10:38 PM CDT) Pathologist [facility] Sepsis Lactate 1.1 0.7 - 2.0 mmol/L Blood 06/20/2024 10:3 8 PM CDT 06/20/2024 10:42 PM CDT Carlos Palomares MD LAB BLOOD ORDERABLES Shanell l Result Performing Organization Address [facility] de Phone Number [facility] Department [place] [address] * POCT glucose (06/20/2024 10:27 PM CDT) [facility] Glucose, POC 162 70 - 199 mg/dL Blood 06/20/2024 10:2 7 PM CDT 06/20/2024 10:27 PM CDT Carlos Palomares MD LAB POCT ORDERABLES - DEV ICE Final Result Performing Organization Address [facility] de Phone Number [facility] [place] [address] * (ABNORMAL) eGFR (06/20/2024 10:24 PM CDT) [facility] eGFR 37(L) >=60 mL/min/1. 73 m2 Comment: [...] MD LAB BLOOD ORDERABLES Fi nal Result [facility] Department [place] [address] * (ABNORMAL) Differential, auto (06/20/2024 10:24 PM CDT) Neutrophil abs 8.00(H) 1.50 - 6.50 K/cumm Imm gran abs 0.12(H) 0.00 - 0.10 K/cumm [facility] Lymphocyte abs 1.11 0.80 - 3.30 K/cumm [facility] Monocyte abs 1.06(H) 0.20 - 0.80 K/cumm [facility] Eosinophil abs 0.00 0.00 - 0.50 K/cumm [facility] Basophil abs 0.04 0.00 - 0.10 K/cumm [facility] Neutrophil pct 77.4 % [facility] Comment: Interpretive Data Percent cell count reference ranges are not reported, since discordance with absolute values may lead to misinterpretation of CBC data. Current Interpretive Data was last revised on 2017. Imm gran pct 1.2 % [facility] Comment: Interpretive Data Percent cell count reference ranges are not reported, since discordance with absolute values may lead to misinterpretation of CBC data. Current Interpretive Data was last revised on 2017. Lymphocyte pct 10.7 % [facility] Comment: Interpretive Data Percent cell count reference ranges are not reported, since discordance with absolute values may lead to misinterpretation of CBC data. Current Interpretive Data was last revised on 2017. Monocyte pct 10.3 % [facility] Comment: Interpretive Data Percent cell count reference ranges are not reported, since discordance with absolute values may lead to misinterpretation of CBC data. Current Interpretive Data was last revised on 2017. Eosinophil pct 0.0 % [facility] Comment: Interpretive Data Percent cell count reference ranges are not reported, since discordance with absolute values may lead to misinterpretation of CBC data. Current Interpretive Data was last revised on 2017. Basophil pct 0.4 % [facility] Comment: Interpretive Data Percent cell count reference ranges are not reported, since discordance with absolute values may lead to misinterpretation of CBC data. Current Interpretive Data was last revised on 2017. Blood 06/20/2024 10:2 4 PM CDT 06/20/2024 10:35 PM CDT Miko Edwards MD LAB BLOOD ORDERABLES nal Result [facility] [place] [address] * Respiratory pathogen panel Nasopharyngeal (06/20/2024 10:24 PM CDT) Pathologist [facility] Influenza A RNA Not Detected Not Detected Influenza B RNA Not Detected Not Detected [facility] RSV RNA Not Detected Not Detected [facility] COVID-19 RNA Not Detected Not Detected [facility] Coronavirus 229E RNA Not Detected Not Detected [facility] Coronavirus HKU1 RNA Not Detected Not Detected [facility] Coronavirus NL63 RNA Not Detected Not Detected [facility] Coronavirus OC43 RNA Not Detected Not Detected [facility] Adenovirus DNA Not Detected Not Detected [facility] Metapneumovirus RNA Not Detected Not Detected [facility] Rhinovirus/Enterov irus RNA Not Detected Not Detected [facility] Parainfluenza 1 RNA Not Detected Not Detected [facility] Parainfluenza 2 RNA Not Detected Not Detected [facility] Parainfluenza 3 RNA Not Detected Not Detected [facility] Parainfluenza 4 RNA Not Detected Not Detected [facility] B. pertussis DNA Not Detected Not Detected [facility] B. parapertussis DNA Not Detected Not Detected [facility] C. pneumoniae DNA Not Detected Not Detected [facility] M. pneumoniae DNA Not Detected Not Detected [facility] Nasopharyngeal 06/20/2024 10 :24 PM CDT 06/20/2024 10:40 PM CDT Narrative [facility] - 06/20/2024 11:35 PM CDT Is the Patient experiencing symptoms consistent with COVID?->No Surveillance testing for transplant patient?->No Interpretive Data [employer] Respiratory Panel (RP2.1) assay is a [...] assay has FDA clearance for testing of PATHOLOGY SECRETARY swabs. The performance of additional specimen types has been assessed by the performing laboratory. The performance characteristics of this assay have been determined by [facility] Molecular Infectious Disease Laboratory. Current interpretive data was last revised on 21. Miko Edwards MD LAB MICROBIOLOGY - [facility] ORDERABLES Final Result [facility] Department [place] [address] * (ABNORMAL) CBC with auto differential (06/20/2024 10:24 PM CDT) WBC 10.33(H) 3.80 - 9.90 K/cumm Hgb 10.6(L) 11.9 - 15.5 g/dL [facility] Hct 31.6(L) 35.6 - 45.5 % [facility] Plt 167 150 - 400 K/cumm [facility] MPV 10.3 9.1 - 12.3 fL [facility] RBC 3.37(L) 3.90 - 5.20 M/cumm [facility] MCV 93.8 81.3 - 96.4 fL [facility] MCH 31.5 27.1 - 33.3 pg [facility] MCHC 33.5 32.3 - 35.7 g/dL [facility] RDW CV 14.0 11.1 - 14.9 % [facility] RDW SD 47.5 35.7 - 48.1 fL [facility] NRBC abs 0.02(H) 0.00 - 0.01 K/cumm [facility] Blood 06/20/2024 10:2 4 PM CDT 06/20/2024 10:35 PM CDT Miko Edwards MD LAB BLOOD ORDERABLES Fi nal Result Performing Organization Address City/[facility]/ZIP Co de Phone Number [facility] Department [place] [address] * Blood culture Blood Peripheral (06/20/2024 10:24 PM CDT) Report Final Report: No growth Blood (Peripheral) 06/20/2024 10:24 PM CDT 06/20/2024 10:37 PM CDT Narrative [facility] - 06/25/2024 7:01 AM CDT From a [...] performance characteristics have been verified by the [facility] Microbiology Laboratory. For questions about this culture, contact the Microbiology Laboratory at [phone]. Interpretive data was last revised on 23. Miko Edwards MD LAB MICROBIOLOGY - GENE RAL ORDERABLES Final Result Performing Organization Address City/[facility]/ZIP Co de Phone Number [facility] Department [place] [address] * Blood culture Blood Peripheral (06/20/2024 10:24 [...] performance characteristics have been verified by the [facility] Microbiology Laboratory. For questions about this culture, contact the Microbiology Laboratory at [phone]. Interpretive data was last revised on 23. Miko Edwards MD LAB MICROBIOLOGY - GENE RAL ORDERABLES Final Result [facility] Department [place] [address] * aPTT (06/20/2024 10:24 PM CDT) aPTT [...] ORDERABLES Fi nal Result Performing Organization Address [facility] [facility] de Phone Number [facility] Department [place] [address] * (ABNORMAL) Protime-INR (06/20/2024 10:24 PM CDT) PT 13.5(H) 9.7 - 13.0 sec INR 1.24(H) 0.90 - 1.20 [facility] Comment: Interpretive data Oral anticoagulant therapeutic ranges: Venous thromboembolism prophylaxis or treatment: 2.0-3.0 CARDIOLOGY Standard range: 2.0-3.0 High-intensity range: 2.5-3.5 Refer to indication-specific guidelines for appropriate target ranges for prosthetic heart valve replacement. Current interpretive data was last revised on 2019. Blood 06/20/2024 10:2 4 PM CDT 06/20/2024 10:38 PM CDT Miko Edwards MD LAB BLOOD ORDERABLES Fi nal Result Performing Organization Address [facility] de Phone Number [facility] [place] [address] * Type and screen (06/20/2024 10:24 PM CDT) ABO Rh A Negative Jeanette, indirect Negative [facility] Blood 06/20/2024 10:2 4 PM CDT 06/20/2024 10:42 PM CDT Narrative [facility] - 06/20/2024 11:43 PM CDT Has the patient had Daratumumab or Isatuximab in the past 6 months?->Unknown Miko Edwards MD LAB BLOOD BANK TEST ORD ERABLES Final Result [facility] [place] [address] * (ABNORMAL) Basic metabolic panel (06/20/2024 10:24 PM CDT) Sodium 138 135 - 145 mmol/L Potassium, pl 3.3 3.3 - 4.9 mmol/L [facility] Chloride 106 97 - 110 mmol/L [facility] CO2 22 22 - 32 mmol/L [facility] Anion gap 10 2 - 15 mmol/L [facility] BUN 19 6 - 25 mg/dL [facility] Creatinine 1.56(H) 0.60 - 1.10 mg/dL [facility] Glucose 134 70 - 199 mg/dL [facility] Comment: Interpretive Data Fasting glucose >/= 126 [...] 2022. Calcium 7.2(L) 8.5 - 10.3 mg/dL [facility] Blood 06/20/2024 10:2 4 PM CDT 06/20/2024 10:35 PM CDT Miko Edwards MD LAB BLOOD ORDERABLES Fi nal Result Performing Organization Address [facility]/ZIP Co de Phone Number [facility] [place] [address] * COLONOSCOPY (07/18/2017 9:10 AM CDT) Anatomical Region Laterality Modality Other Narrative Procedure Note Mike Locke MD - 07/18/2017 9:10 AM CDT [facility] Patient Name: Juli Koo Procedure Date: 07/18/2017 9:10 AM Date of : 1960 Admit Type: Outpatient Age: 57 Gender: Female Attending MD: Mike Locke MD Room: [facility] ENDOSCOPY CAPSULE Note Status: Finalized Patient Profile: [...] passed under direct vision.The Pediatric Colonoscope [id number]-[id number] was introduced through the anus and advanced [...] 9:10 AM Procedure Code(s): --- Professional --- 64307, Colonoscopy, flexible; diagnostic, including collection of specimen(s) by brushing or washing, when performed (separateprocedure) Diagnosis Code(s): --- Professional --- Z86.010, Personal history of colonic polyps K64.8, Other hemorrhoids K57.30, Diverticulosis of large intestine without perforation orabscess without bleeding CPT copyright 2017 [employer]. All rights reserved. The codes documented in this report are preliminary and upon ferris wheel operator reviewmay be revised to meet current compliance requirements. 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 Advance Directives For more information, please contact: [phone] * Full Code (Latest Code Status on [...] 8:32 AM 07/18/2017 12:39 PM Care Teams Accounts Collector Relationship Specialty Start Date End Date Yancy Guerrero MD [address] [place] [address] PCP - General 05/22/16 Lupillo Reyes MD [address] [address] Consulting Physician Orthopedic Surgery 07/26/22
--- OUTSIDE RECORDS SUMMARY | 2024-07-18 11:36 | XMS_ITS | Encounter Summary ---
Author Organization [facility] [employer] [facility] Address [address] [facility] [address] [place] [address] Phone Care Team Providers Care Supervisor Cigar Making Hand Name Role Phone Yancy Guerrero MD Primary Care Provider + [phone] Lupillo Reyes MD Unavailable [phone] Encounter Details Date Type Department Care Team (Latest Contact Info) Description 04/10/2013 Orders Only [facility] Wendy Choudhary, ISAIAS [address] [facility] [address] [place], [place] [id number] Social History Tobacco Use Types Packs/Day Years Used Date Smoking Tobacco: Never Assessed Comments Unknown Sex and Gender Information Value Date Recorded Sex Assigned at Not on file Legal 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 Operating Room [address] [place] [address] Rob Kline MD [address] [facility] [place] [address] 07/19/2024 12:00 PM CDT Anesthesia Event [facility] Operating Room [address] [place] [address] Nabila Martinez NP [address] [place] [address] [place] [address] 07/19/2024 12:00 PM CDT - 07/19/2024 1:00 PM CDT Surgery [facility] Operating Room [address] [place] [address] Rob Kline MD [address] [place] [address] URETEROSCOPY Scheduled Procedures Name Priority Associated Diagnoses [...] COVID: Suspected 12/06/2019 12/06/2019 12/20/2019 3:05 AM AIRPLANE CLEANER COVID: Suspected 01/14/2021 01/14/2021 01/14/2021 9:43 PM AIRPLANE CLEANER COVID: Suspected 01/17/2021 01/17/2021 01/18/2021 5:33 AM AIRPLANE CLEANER COVID: Suspected 08/06/2021 08/06/2021 08/07/2021 3:05 AM CDT COVID: Suspected 08/06/2021 08/06/2021 08/07/2021 3:18 AM CDT COVID19 08/06/2021 08/06/2021 08/16/2021 3:05 AM CDT COVID: Recovered Comment:Added based on recent COVID infection. 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
--- OUTSIDE RECORDS SUMMARY | 2024-07-18 11:36 | XMS_ITS | Encounter Summary ---
Author Organization [facility] Healthcare Address [address] [place] [address] Care Team Providers Care Therapeutic Recreation Specialist Name Role Phone Yancy Guerrero MD Primary Care Provider + [phone] Lupillo Reyes MD Unavailable [phone] Encounter Details Date Type Department Care Team (Late st Contact Info) Description 06/20/2024 Hospital Encounter [facility] ADMIT [address] [place] [address] Social History Tobacco Use Types Packs/Day Years Used Date Smoking Tobacco: Every Day Cigarettes 0.2 2 Smokeless Tobacco: Never Comments:Two packs per week for last 2 years Alcohol Use Standard Drinks/Week Comments Yes 0 (1 standard drink = 0.6 oz pur e alcohol) socially [facility] Utilities Answer Date Recorded In the past 12 months has [employer], gas, oil, or water company threatened to [...] often do you attend chur ch or pentecostal services? 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 Gender Identity Not on file Sexual Orientation [...] Description 07/19/2024 12:00 PM CDT Hospital Encounter [facility] Operating Room [address] [place] [address] Rob Kline MD [address] [facility] [place] [address] 07/19/2024 12:00 PM CDT Anesthesia Event [facility] Operating Room [address] [place] [address] Nabila Martinez, YENI [address] [place] [address] [place] [address] 07/19/2024 12:00 PM CDT - 07/19/2024 1:00 PM CDT Surgery [facility] Operating Room [address] [place] [address] Rob Kline MD [address] [facility] [place] [address] URETEROSCOPY Scheduled Procedures Name Priority Associated Diagnoses Date/Ti in URETEROSCOPY Right kidney stone 07/19/2024 12:00 PM [...] documented as of this encounter Care Teams Therapeutic Recreation Specialist Relationship Specialty Start Date End Date Yancy Guerrero MD [address] [place] [address] PCP - General 05/22/16 Lupillo Reyes MD [address] [address] Consulting Physician Orthopedic Surgery 07/26/22 documented as of this encounter
--- OUTSIDE RECORDS SUMMARY | 2024-07-18 11:36 | XMS_ITS ---
Author Organization [facility] Address [address] [facility] [address] [place] [address] Care Team Providers Care Extrusion Manager Name Role Phone Cesar ROSARIO, Yancy Primary Care Provider Arcelia Mullins [phone] Social History Sex Assigned At : Social History Observation Description Sex Assigned At Female Encounters Encounter Location Date Provider Diagnosis [facility] [address] [facility] [address] [place] [address] 03/06/2024 Arcelia Tripp Plan Of Treatment No Information Progress Notes * Camille KOODOB: [birth year] (64 yo F)Acc No.[id number]:03/06/2024 Patient: Anabel BARRCamille CROW Provider: Ami Tripp :1960 A ge:63 Y S ex:Female Date:03/06/2024 Phone: Address:[address] [place], [place] [id number] Pcp:Yancy Guerrero MD Data: * Chief Complaints: * Assessment: Plan: * Treatment: * Billing Information: * Visit Code: * Procedure Codes: * Electronic signature of Roman Tripp LCPC on 07/18/2024 at 11:35 AM CDT Sign off status: Pending Signatures: No Ad Hoc Signature Added * Provider: Ami Tripp Date: 03/06/2024 Generated for Veronika tovar/Dipika/eTranbrea on: 0 07/18/2024 11:35 AM CDT
--- OUTSIDE RECORDS SUMMARY | 2024-07-18 11:36 | XMS_ITS | Encounter Summary ---
Author Organization [facility] Address [address] [place] [address] Care Team Providers Care Business Supervisor Name Role Phone Yancy Guerrero MD Primary Care Provider + Encounter Details Date Type Department Care Team (Latest Contact Info) Description 05/02/2003 Outpatient Historical [facility] Tod Cifuentes MD [address] [facility] [address] [place] [address] SCREENING MAMM-MAILG NEOPL-OTHER (Primary Dx) Social History Tobacco Use Types Packs/Day Years Used Date Smoking Tobacco: Never Assessed Comments Unknown Sex and Gender Information Value Date Recorded Sex Assigned at Not on file Legal Sex Female 4:27 AM 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
--- OUTSIDE RECORDS SUMMARY | 2024-07-18 11:36 | XMS_ITS | Encounter Summary ---
Author Organization [facility] Address [address] [place] [address] Phone Care Team Providers Care Jerker Name Role Phone Yancy Guerrero MD Primary Care Provider + [phone] Lupillo Reyes MD Unavailable [phone] Encounter Details Date Type Department Care Team (Late st Contact Info) Description 06/24/2024 Telephone [facility] Cardiology [address] [facility] 8th [place] [address] [place] [address] Pat Calvo Social History Tobacco Use Types Packs/Day Years Used Date Smoking Tobacco: Every Day Cigarettes 0.2 2 Smokeless Tobacco: Never Comments:Two packs per week for last 2 years Alcohol Use Standard Drinks/Week Comments Yes 0 (1 standard drink = 0.6 oz pur e alcohol) socially [facility] Utilities Answer Date Recorded In the past 12 months has [employer], gas, oil, or water [employer] threatened to shut off services in your [...] week 06/02/2023 How often do you attend [facility] or latter day services? More than 4 [...] on file Legal 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 LINE LEAD Gender Identity Not on file Sexual [...] CONSULT: general CALLER'S NAME: Rosalinda CALLER'S PAGER: [phone] PATIENT'S NAME: Camille Shultz : 1960 CAMPUS: [place] PATIENT'S LOCATION: [facility] REASON FOR CONSULT: Management of Bradycardia ATTENDING PHYSICIAN: Dr. Steinberg documented in this encounter Plan of Treatment Upcoming Encounters Date Type Department Care Team (Late st Contact Info) Description 07/19/2024 12:00 PM CDT Hospital Encounter [facility] Operating Room [address] [place] [address] Rob Kline MD [address] [place] [address] 07/19/2024 12:00 PM CDT Anesthesia Event [facility] Operating Room [address] [place] [address] Nabila Martinez NP [address] [place] [address] [place] [address] 07/19/2024 12:00 PM CDT - 07/19/2024 1:00 PM CDT Surgery [facility] Operating Room [address] [place] [address] Rob Kline MD [address] [facility] [place] [address] URETEROSCOPY Scheduled Procedures Name Priority Associated Diagnoses [...] documented as of this encounter Care Teams Jerker Relationship Specialty Start Date End Date Yancy Guerrero MD [address] [place], [place] [id number] PCP - General 05/22/16 Lupillo Reyes MD [address] [facility] [address] [place] [address] Consulting Physician Orthopedic Surgery 07/26/22 documented as of this encounter
--- OUTSIDE RECORDS SUMMARY | 2024-07-18 11:36 | XMS_ITS | Encounter Summary ---
Author Organization [facility] Address [address] [place] [address] Care Team Providers Care Organ Assembler Name Role Phone Yancy Guerrero MD Primary Care Provider + Encounter Details Date Type Department Care Team (Latest Contact Info) Description 03/10/2006 Outpatient Historical [facility] SRIDHAR Velázquez, [place] [address] [facility] [address] [place] [address] Lump or Mass in Breast (Primary Dx) Social History Tobacco Use Types Packs/Day Years Used Date Smoking Tobacco: Never Assessed Comments Unknown Sex and Gender Information Value Date Recorded Sex Assigned at Not on file Legal Sex Female 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
== END 2024-07-18 10:33 | disposition home or self-care (01) ==
LOC: CHSLAB 10:34
PROVIDERS: PCP Internal Medicine; Visit Provider Internal Medicine
DX: N10 Acute pyelonephritis (principal)
CPT/HCPCS: 36415; 80053; 81001; 85025; 85055; 87086; 87186

== ENCOUNTER 2024-08-05 17:02 | Outpatient (CLI) | payer OTHER, SELFPAY ==
[2024-08-05 17:20] LABS: Add Urine Microscopic? YES; Appearance Urine Clear (Clear); Bilirubin Urine 1+ (Negative); Blood Urine Negative (Negative); Color Urine Yellow (Yellow); Glucose Urine UA Negative (Negative); Ketones Urine Trace (Negative); Leukocyte Esterase Ur Trace (Negative); Nitrate Urine Negative (Negative); Protein Urine Trace (Negative)
[2024-08-05 17:24] LABS: Bacteria Urine 1+ /hpf; RBC Urine None seen /hpf (0-2); Squamous Epithelial Cell Urine Few /hpf (Few)
== END 2024-08-05 17:03 | disposition home or self-care (01) ==
LOC: CHSLAB 17:05
PROVIDERS: PCP Internal Medicine; Visit Provider Internal Medicine
DX: N10 Acute pyelonephritis (principal)
CPT/HCPCS: 81001; 87086

== ENCOUNTER 2024-11-29 09:27 | Outpatient (CLI) | payer OTHER, SELFPAY ==
--- OUTSIDE RECORDS SUMMARY | 2024-01-15 04:22 | XMS_ITS | Continuity of Care Document ---
Author Organization [facility] Address [address] [place] [address] Phone Care Team Providers Care Video Technician Name Role Phone Lupillo Reyes MD Unavailable Unavailable Allergies, Adverse Reactions, Alerts Substance Reaction Status Criticality No Known Allergies Active No Inform ation Medications Medication Instructions Dosage Effective Dates (start - stop) Status Comments Mobic 15 mg tablet take 1 tablet by ora l route every day 1 po daily 15 MG - Active Xarelto 2.5 mg tablet - Active atenolol 25 mg tablet - Active lorazepam 0.5 mg tablet - Active losartan 25 mg tablet - Active Celexa 10 mg tablet - Active triamterene 37.5 mg-hydrochlorothiazide 25 mg capsule - Active atorvastatin 10 mg tablet - Active Procedures Procedure Date Pre Payment Office/outpatient visit,est, mod 2023 Supplemental Report Office/outpatient visit,est, mod 2022 Supplemental Report Office/outpatient visit,est, mod 2022 Supplemental Report Office/outpatient visit,est, mod 2022 Supplemental Report Global/Postop followup visit Supplemental Report Global/Postop followup visit Supplemental Report Disability Form Office consultation, moderate MDM Advance Directives Directive Yes / No Effective Date File Name No Information Encounters Encounter Description Practice Location Reason(s) For Visit Diagnoses Date Provider Providers Copied on Encounter [facility], [address], [id number], [place] [phone] [facility] No Information 4 Eric Wesley. [address] [address], [place], [place], [id number] , [place]. tel: [phone] [facility], [address], [id number], [place] tel:[phone] [facility] No Information 4 Eric Wesley. [address], [id number] , [place]. tel: [phone] Office/[place]pat ient visit[place]est, [facility] [place] [facility], [address], [id number], [place] [phone] Rt Shoulder (chief complaint) Complete rotatr-cuff tear/ruptr of r shoulder, not trauma 4 Eric Wesley. [address], [id number] , [place]. tel: [phone] Office/[place]pat ient visit,est, [facility] [place] [facility], [address], [id number], [place] tel:[phone] Right shoulder (chief complaint) Complete rotatr-cuff tear/ruptr of r shoulder, not trauma 3 Eric Wesley. [address] [facility] [address], [place], [place], [id number] , [place]. tel: [phone] Office/outpat ient visit,est, [facility] [place] [facility] [employer], [address], [id number], [place] tel:[phone] Follow up (chief complaint) Complete rotatr-cuff tear/ruptr of r shoulder, not trauma 3 Eric Wesely. [address] [facility], [address] [address], [place], [place], [id number] , [place]. tel: [phone] Office/outpat ient visit,est, mod [facility], [address] [address], [place], [place], [id number], [place] tel:[phone] [facility] Post op check up (chief complaint) Complete rotatr-cuff tear/ruptr of r shoulder, not trauma 3 Eric Wesley. [address] [facility], [address] [address], [place], [place], [id number] , [place]. tel: [phone] [facility], [address] [place] [address], [id number], [place] tel:[phone] [facility] Right shoulder (chief complaint) Complete rotatr-cuff tear/ruptr of r shoulder, not trauma 3 Eric Wesley. [address] [facility], [address] [address], [place], [place], [id number] , [place]. tel: [phone] [facility] [employer] [facility], [address], [id number], [place] tel:[phone] [facility] Right shoulder (chief complaint) Complete rotatr-cuff tear/ruptr of r shoulder, not trauma 3 Eric Wesley. [address] [facility], [address], [id number] , [place]. tel: [phone] [facility], [address] [place] [address], [id number], [place] tel:[phone] [facility] No Information 3 Eric Wesley. [address] [facility], [address] [address], [place], [place], [id number] , [place]. tel: [phone] [facility], [address] [place] [address], [id number], [place] tel:[phone] [facility] [employer] Complete rotatr-cuff tear/ruptr of r shoulder, not trauma 3 Eric Wesley. [address] [facility], [address], [place], [place], [id number] , [place]. tel:[phone] Office consultation, moderate MDM [facility], [address], [place], [place], [id number], [place] tel:[phone] [facility] Right shoulder muscle tear/pain (chief complaint) Complete rotatr-cuff tear/ruptr of r shoulder, not trauma 3 Eric Lupillo. [address] [facility], [address], [place], [place], [id number] , [place]. [phone] Referring Provider: Lupillo Mueller, [address] [facility] [address], [place], [address] . tel:[phone] Family History Family Member Type Diagnosis Age At Onset Father Problem (finding) Hypertension Mother Problem (finding) Hypertension Mother Problem (finding) Diabetes Father Problem (finding) Cancer, unknown Father Problem (finding) Other Immunizations Vaccine Date Status Comments influenza, injectable, quadr ivalent, (3 years or older) administered Source: Other Provid er Pneumo (2 yrs or older)(PPV) administered Source: Other Provider Payers Payer name Insurance type Covered constitution party ID Authoriza tion(s) [facility] Workers Compensation Adm WC [id number] Social History Type Description Quantity Date Captured Comments Sex Female Smoking Status No Information Chief Complaint And Reason For Visit No Information Reason For Referral Reason For Referral No Information History Of Present Illness Encounter Date Complaint History Of Prese nt Illness Rt Shoulder Pt comes in toda y for follow up on her right shoulder. Right shoulder Patient comes in today for follow up of her right shoulder Follow up Patient comes in today for follow up of her right shoulder Post op check up Camille returns to the office for right shoulder follow up. Right shoulder Patient comes in today for follow up of her right shoulder arthroscopy Right shoulder Patient comes in today for follow up of her right shoulder arthroscopy Right shoulder muscle tear/pain Patient comes in today for right shoulder pain Functional Status Date Functional Assessmen t No Information Instructions Date Instruction Additional Infor mation No Information Assessments Type Assessment Date No Information Patient Care Teams Name Effective Dates (start - stop) Status Members No Information
[2024-11-29 09:39] LABS: Hematocrit 45.5 % (35.0-49.0); Hemoglobin 15.0 g/dL (12.0-15.0); Mean Corpuscular HGB Conc 33.0 g/dL (32-36); Mean Corpuscular Hemoglobin 30.0 pg (27.0-31.0); Mean Corpuscular Volume 91.0 fL (78.0-102.0); Platelet Count Result 225 K/mm3 (150-420); Red Blood Count 5.00 M/mm3 (4.20-5.40); White Blood Count 9.0 K/mm3 (4.8-10.8)
[2024-11-29 09:40] LABS: Add Urine Microscopic? NO; Appearance Urine Clear (Clear); Glucose Urine UA Negative (Negative); Leukocyte Esterase Ur Negative (Negative); Nitrate Urine Negative (Negative); Specific Grav Ur 1.025 (1.010-1.020)
[2024-11-29 09:50] LABS: Hemoglobin A1C 6.7 % (<5.7)
--- OUTSIDE RECORDS SUMMARY | 2024-11-29 09:55 | XMS_ITS | Encounter Summary ---
Author Organization [facility] [employer] [facility] Address [address] [place] [address] Phone Care Team Providers Care Painter Ski Edge Name Role Phone Yancy Guerrero MD Primary Care Provider + [phone] Lupillo Reyes MD Unavailable [phone] Encounter Details Date Type Department Care Team (Latest Contact Info) Description 03/06/2023 Orders Only [facility] Wendy Choudhary, ISAIAS [address] [facility] [address] [place], [place] [id number] Social History Tobacco Use Types Packs/Day Years [...] on file Legal 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 LICENSED 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 [address] [address] Consulting Physician Orthopedic Surgery 07/26/22 documented as of this encounter
--- OUTSIDE RECORDS SUMMARY | 2024-11-29 09:55 | XMS_ITS | Encounter Summary ---
Author Organization [facility] [employer] [facility] Address [address] [place] [address] Phone Care Team Providers Care Brush Holder Inspector Name Role Phone Yancy Guerrero MD Primary Care Provider + [phone] Lupillo Reyes MD Unavailable [phone] Encounter Details Date Type Department Care Team (Latest Contact Info) Description 04/03/2023 Orders Only [facility] Wendy Choudhary, ISAIAS [address] [facility] [address] [place], [place] [phone] Social History Tobacco Use Types Packs/Day Years [...] on file Legal 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 TRANSPORTATION LEAD Gender Identity Not on file Sexual [...] documented as of this encounter Care Teams Brush Holder Inspector Relationship Specialty Start Date End Date Yancy Guerrero MD [address] [place] [address] PCP - General 05/22/16 Lupillo Reyes MD [address] [facility] [address] [facility] [address] [place] [address] Consulting Physician Orthopedic Surgery 07/26/22 documented as of this encounter
--- OUTSIDE RECORDS SUMMARY | 2024-11-29 09:55 | XMS_ITS | Encounter Summary ---
Author Organization [facility] [employer] [facility] Address [address] [place] [address] Phone Care Team Providers Care It Application Development Manager Name Role Phone Yancy Guerrero MD Primary Care Provider + [phone] Lupillo Reyes MD Unavailable [phone] Encounter Details Date Type Department Care Team (Latest Contact Info) Description 03/28/2023 Orders Only [facility] Wendy Choudhary, ISAIAS [address] [facility] [address] [place], [place] [phone] Social History Tobacco Use Types Packs/Day Years [...] on file Legal 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 FURNACE PACKER Gender Identity Not on file Sexual [...] documented as of this encounter Care Teams It Application Development Manager Relationship Specialty Start Date End Date Yancy Guerrero MD [address] [place] [address] PCP - General 05/22/16 Lupillo Reyes MD [address] [facility] [address] [facility] [address] [place] [address] Consulting Physician Orthopedic Surgery 07/26/22 documented as of this encounter
--- OUTSIDE RECORDS SUMMARY | 2024-11-29 09:55 | XMS_ITS | Encounter Summary ---
Author Organization [facility] [employer] [facility] Address [address] [place] [address] Phone Care Team Providers Care Mortician Helper Name Role Phone Yancy Guerrero MD Primary Care Provider + [phone] Lupillo Reyes MD Unavailable [phone] Encounter Details Date Type Department Care Team (Latest Contact Info) Description 04/28/2023 Orders Only [facility] Wendy Choudhary, ISAIAS [address] [facility] [address] [place], [place] [id number] Social History Tobacco Use Types Packs/Day Years [...] on file Legal 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
--- OUTSIDE RECORDS SUMMARY | 2024-11-29 09:55 | XMS_ITS | Encounter Summary ---
Author Organization [facility] [employer] [facility] Address [address] [place] [address] Phone Care Team Providers Care Insulation Worker Apprentice Name Role Phone Yancy Guerrero MD Primary Care Provider + [phone] Lupillo Reyes MD Unavailable [phone] Encounter Details Date Type Department Care Team (Latest Contact Info) Description 04/13/2023 Orders Only [facility] Wendy Choudhary, ISAIAS [address] [facility] [address] [place], [place] [phone] Social History Tobacco Use Types Packs/Day Years [...] on file Legal 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 COMMODITY SUPERVISOR Gender Identity Not on file Sexual [...] documented as of this encounter Care Teams Insulation Worker Apprentice Relationship Specialty Start Date End Date Yancy Guerrero MD [address] [place] [address] PCP - General 05/22/16 Lupillo Reyes MD [address] [facility] [address] [facility] [address] [place] [address] Consulting Physician Orthopedic Surgery 07/26/22 documented as of this encounter
--- OUTSIDE RECORDS SUMMARY | 2024-11-29 09:55 | XMS_ITS | Encounter Summary ---
Author Organization 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
--- OUTSIDE RECORDS SUMMARY | 2024-11-29 09:56 | XMS_ITS | Clinical Summary ---
Author Organization [facility] Address [address] [facility] [place] [address] Phone Care Team Providers Care Certified Ophthalmic Assistant Name Role Phone Yancy Guerrero MD [...] on file Legal Sex Female 4:27 AM KNITTER MECHANIC Gender Identity Not on file Sexual Orientation Not on file Occupation Industry Job Start Date Job End Date Not on file Not on file Not on file Not on file Last Filed Vital Signs Vital Sign Reading Time Taken Comments Blood Pressure 132/89 12/30/2016 11:52 AM KNITTER MECHANIC Pulse 92 12/30/2016 11:52 AM KNITTER MECHANIC Temperature 36.9 C (98.4 F) 01/29/2009 11:30 AM KNITTER MECHANIC Respiratory Rate 16 01/29/2009 11:30 AM KNITTER MECHANIC Oxygen Saturation 93% 01/29/2009 11:30 AM KNITTER MECHANIC Inhaled Oxygen Concentration - - Weight 76.7 kg (169 lb) 12/30/2016 11:52 AM KNITTER MECHANIC Height 167.6 cm (5' 6) 12/30/2016 11:52 AM KNITTER MECHANIC Body Mass Index 27.28 12/30/2016 11:52 AM KNITTER MECHANIC Plan of Treatment Health Maintenance Due Date Last Done Comments DTAP/TDAP/TD VACCINES (1 - Tdap) 1980 COLORECTAL SCREENING 2006 Colorectal Cancer Screening 2006 FIT-DNA Q 3 years 2006 FIT/FOBT Q 1 year 2006 Flex Sig/CT Colonography Q 5 years 2006 ZOSTER VACCINE (1 of 2) 06/22/2011 BREAST CANCER SCREENING 10/30/2020 10/31/19, 10/05/2017, 03/04/2016, Additional history exists INFLUENZA VACCINE (#1) 2024 RSV VACCINE (60+ or ) (1 - 1-dose 75+ series) 2036 Medical Devices Implanted Type Area Supervisor Extrusion Device Identifier Shelf Expiration Date Model / Serial / Lot Sling Monarc [id number] Implanted:Qty: 1 on 01/28/2009 at [facility] Sling Pelvis FORMERLY [facility] [employer] [id number] / / Procedures Procedure Name Priority Date/Time [...] ASSESSMENT: BI-RADS CATEGORY 1: Negative DICTATION LOCATION: [facility] Narrative 10/31/2019 3:53 PM CDT BILATERAL [...] ASSESSMENT: BI-RADS CATEGORY 1: Negative DICTATION LOCATION: [facility] Tod Dallas MD MAMMO ORDERABLES Final Result from Last 3 Months or Most Recently Relevant to Health Maintenance Insurance [place] [id number] POS II Advance Directives For more information, please contact: [phone] * Full Code (Latest Code Status on File) Date Activated Date Inactivated Comments 01/28/2009 9:06 PM 01/29/2009 4:29 PM * Full Code Date Activated Date Inactivated Comments 01/28/2009 7:38 PM 01/28/2009 9:06 PM * Full Code Date Activated Date Inactivated Comments 01/28/2009 2:46 PM 01/28/2009 7:38 PM Care Teams Certified Ophthalmic Assistant Relationship Specialty Start Date End Date Yancy Guerrero MD [address] [place] [phone] PCP - General Internal Medicine 09/22/14
--- OUTSIDE RECORDS SUMMARY | 2024-11-29 09:56 | XMS_ITS | Encounter Summary ---
Author Organization [facility] Address [address] [place] [address] Care Team Providers Care Chief Fundraising Officer Name Role Phone Yancy Guerrero MD Primary Care Provider + Encounter Details Date Type Department Care Team (Latest Contact Info) Description 05/26/2005 Outpatient Historical HIS [facility] Tod Cifuentes MD [address] [facility] [address] [place] [address] Other Screening Mammogram (Primary Dx) Social History Tobacco Use Types Packs/Day Years Used Date Smoking Tobacco: Never Assessed Comments Unknown Sex and Gender Information Value Date Recorded Sex Assigned at Not on file Legal Sex Female 4:27 AM ORDER ADMINISTRATOR Gender Identity Not on file Sexual Orientation Not on file documented as of this encounter Plan of Treatment Not on file documented as of this encounter Visit Diagnoses Diagnosis Other screening mammogram- Primary documented in this encounter Care Teams Chief Fundraising Officer Relationship Specialty Start Date End Date Yancy Guerrero MD [address] [place] [address] PCP - General Internal Medicine 09/22/14 documented as of this encounter
--- OUTSIDE RECORDS SUMMARY | 2024-11-29 09:56 | XMS_ITS | Encounter Summary ---
Author Organization [facility] Address [address] [place] [address] Care Team Providers Care Procurement Forester Name Role Phone Yancy Guerrero MD Primary Care Provider + Encounter Details Date Type Department Care Team (Latest Contact Info) Description 01/24/2008 Outpatient Historical HIS [facility] Tod Cifuentes, [address] [facility] [address] [place] [address] Other Screening Mammogram Social History Tobacco Use Types Packs/Day Years Used Date Smoking Tobacco: Never Assessed Comments Unknown Sex and Gender Information Value Date Recorded Sex Assigned at Not on file Legal Sex Female 4:27 AM CORRECTIONAL SECURITY OFFICER Gender Identity Not on file Sexual Orientation Not on file documented as of this encounter Plan of Treatment Not on file documented as of this encounter Procedures Procedure Name Priority Date/Time Associated Diagnosis Comments MAMMO SCREEN BILAT W OR WO CAD Routine 01/24/2008 9:19 AM CORRECTIONAL SECURITY OFFICER documented in this encounter Results * MAMMO DIGITAL SCREEN BILAT (01/24/2008 9:19 AM CORRECTIONAL SECURITY OFFICER) Anatomical Region Laterality Modality Breast Bilateral Other 01/24/2008 9:19 AM CORRECTIONAL SECURITY OFFICER Narrative 01/25/2008 7:03 PM CORRECTIONAL SECURITY OFFICER [facility] [address] [place], [place] [address] Admit Date: 01/24/2008 JULI KOO Sex: F Admit Prov: TOD DALLAS Date: 1960 Primary Care Prov: PCP, UNKNOWN CMRN: [id number] Room: [facility] SSN: [id number] IMAGING SERVICES Ordering Prov: TOD DALLAS Accession Number: [id number] Interpretation BILATERAL SCREENING DIGITAL MAMMOGRAMS WITH COMPUTER [...] AMK Procedure Note Olena Christy - 01/25/2008 [id number] [place], [place] [address] Admit Date: 01/24/2008 HANANEJULI Sex: F Admit Prov: TOD DALLAS Date: 1960 Primary Care Prov: PCP, UNKNOWN CMRN: [id number] [id number] [facility] Ordering Prov: TOD DALLAS Interpretation [...] mammogram documented in this encounter Care Teams Procurement Forester Relationship Specialty Start Date End Date Yancy Guerrero MD [address] [place] [phone] PCP - General Internal Medicine 09/22/14 documented as of this encounter
--- OUTSIDE RECORDS SUMMARY | 2024-11-29 09:56 | XMS_ITS | Encounter Summary ---
Author Organization [facility] Address [address] [place] [address] Care Team Providers Care Centerless Grinder Name Role Phone Yancy Guerrero MD Primary Care Provider + Encounter Details Date Type Department Care Team (Latest Contact Info) Description 03/10/2006 Outpatient Historical HIS [facility] SRIDHAR Velázquez, [place] [address] [facility] [address] [place] [address] Lump or Mass in Breast (Primary Dx) Social History Tobacco Use Types Packs/Day Years Used Date Smoking Tobacco: Never Assessed Comments Unknown Sex and Gender Information Value Date Recorded Sex Assigned at Not on file Legal Sex Female 4:27 AM UNDERWRITING ACCOUNT REPRESENTATIVE Gender Identity Not on file Sexual Orientation Not on file documented as of this encounter Plan of Treatment Not on file documented as of this encounter Visit Diagnoses Diagnosis Lump or mass in breast- Primary documented in this encounter Care Teams Centerless Grinder Relationship Specialty Start Date End Date Yancy Guerrero MD [address] [place] [address] PCP - General Internal Medicine 09/22/14 documented as of this encounter
--- OUTSIDE RECORDS SUMMARY | 2024-11-29 09:56 | XMS_ITS | Encounter Summary ---
Author Organization [facility] Address [address] [place] [address] Care Team Providers Care Executive Vice President Of Sales Name Role Phone Yancy Guerrero MD Primary Care Provider + Encounter Details Date Type Department Care Team (Latest Contact Info) Description 05/02/2003 Outpatient Historical HIS [facility] Tod Cifuentes MD [address] [facility] [address] [place] [address] SCREENING MAMM-MAILG NEOPL-OTHER (Primary Dx) Social History Tobacco Use Types Packs/Day Years Used Date Smoking Tobacco: Never Assessed Comments Unknown Sex and Gender Information Value Date Recorded Sex Assigned at Not on file Legal Sex Female 4:27 AM CAPACITOR INSPECTOR Gender Identity Not on file Sexual Orientation Not on file documented as of this encounter Plan of Treatment Not on file documented as of this encounter Visit Diagnoses Diagnosis Other screening mammogram- Primary documented in this encounter Care Teams Executive Vice President Of Sales Relationship Specialty Start Date End Date Yancy Guerrero MD [address] [place] [address] PCP - General Internal Medicine 09/22/14 documented as of this encounter
--- OUTSIDE RECORDS SUMMARY | 2024-11-29 09:56 | XMS_ITS | Patient Health Record ---
Author Organization [facility] [employer] Address [facility] [facility] [address] [place] [address] Care Team Providers Care Linen Controller Name Role Phone Yancy Guerrero MD Primary Care Provider Arcelia Mullins Unavailable [phone] Reason For Referral No Information Social History Tobacco Use: Social History Observation Description Date Details (start date - stop date) Current Smoker NA - NA Sex Assigned At : Social History Observation Description Sex Assigned At Female Social History Miscellaneous: Social Info Question Answer Notes Safety issues: Are there any firearms in the house? No Social History Social Info Question Answer Notes Household: Marital Status: Number of Adults in household: 1 Number of Children in Household: 0 Level of Education: Finished College Drug/Alcohol: Social Info Question Answer Notes Drugs Have you used drugs other than those for medical reasons in the past 12 months? No AUDIT-C (Standard) Points 6 Did you have a drink contain ing alcohol in the past year? Yes How often did you have six or more drinks on one occasion in the past year? 2 to 4 times a month (2 points) How many drinks did you have on a typical day when you were drinking in the past year? 3 or 4 drinks (1 point) How often did you have a drink containing alcohol in the past year? 2 to 3 times a week (3 points) Tobacco Use: Social Info Question Answer Notes Tobacco Control (Standard) Tobacco use: Current smoker How often do you smoke cigarettes? Every day How many cigarettes a day do you smoke? 5 or less How soon after you wake up do you smoke your first cigarette? 6-30 minutes Are you interested in quitting? 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 Problems Problem Type SNOMED Code ICD Code Onset Dates Problem Status W/U Status Risk Notes Problem Severe recurrent major depression without psychotic features (46288807) Major depressive disorder, recurrent severe without psychotic features (F33.2) Active confirmed Problem Generalized anxiety disorder (88655577) Generalized anxiety disorder (F41.1) Active confirmed Problem Posttraumatic stress disorder (04322347) PTSD (post-traumatic stress disorder) (F43.10) Active confirmed Problem Alcohol abuse (28904151) Alcohol abuse (F10.10) Active confirmed Encounters Encounter Location Date Provider Diagnosis [facility] [address] [address] 01/18/2024 Arcelia rTipp Major depressive disorder, recurrent severe without psychotic features F33.2 ; Generalized anxiety disorder F41.1 and Alcohol abuse F10.10 [facility] [address] [address] 01/23/2024 Arcelia Tripp Major depressive disorder, recurrent severe without psychotic features F33.2 ; Generalized anxiety disorder F41.1 ; Alcohol abuse F10.10 and PTSD (post-traumatic stress disorder) F43.10 [facility] [address] [address] 02/02/2024 Arcelia Tripp [facility] [address] [address] 02/28/2024 Arcelia Tripp Major depressive disorder, recurrent severe without psychotic features F33.2 ; Generalized anxiety disorder F41.1 ; Alcohol abuse F10.10 and PTSD (post-traumatic stress disorder) F43.10 [facility] [address] [address] 02/13/2024 Arcelia Tripp [facility] [address] [address] 02/26/2024 Arcelia Tripp [facility] [address] [address] 03/06/2024 Arcelia Tripp Assessments Encounter Date Diagnosis (ICD Code) Assessment Notes Treatment Notes Treatment Clinical Notes Section Notes 01/23/2024 Major depressive disorder, recurrent severe without psychotic features (ICD-10 - F33.2) Assessment and Plan: 1. Anxiety and Depression - Continue with the prescribed medication regimen. - Encourage engagement in self-care activities, such as journaling, to monitor progress and emotions. - Set small, manageable daily goals to prevent decision paralysis. - Provide a list of local support groups, including [facility] and [employer] [facility], for additional support. 2. Family-related Stress - [...] a list of local support groups, including [facility] and [employer], for additional support. 2. Family-related Stress - [...] to address underlying issues. Utilize a daily transportation planner incorporating affirmations and goals to foster [...] of the potential tear. Consult with an clinical trial specialist for a comprehensive evaluation and to [...] to address underlying issues. Utilize a daily transportation planner incorporating affirmations and goals to foster [...] of the potential tear. Consult with an clinical trial specialist for a comprehensive evaluation and to [...] and continue addressing the identified issues. 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 History: Denied Legal History: DUI, 04/26/22 Family History of MH/RADHAMES: alcohol, anxiety, PTSD, bipolar Physical Medical Conditions: hypertension, afib, elevated lipids Spiritual Beliefs: Mosque Suicidal Ideation/Self Harm: Denied Homicidal Ideation: Denied [...] weekly support group meetings, like AA or [employer], to sustain sobriety and develop a support [...] Level of Education: completed college 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 01/23/2024 Alcohol abuse (ICD-10 - F10.10) Assessment and Plan: 1. Anxiety and Depression - Continue with the prescribed medication regimen. - Encourage engagement in self-care activities, such as journaling, to monitor progress and emotions. - Set small, manageable daily goals to prevent decision paralysis. - Provide a list of local support groups, including [employer] and [employer], for additional support. 2. Family-related Stress - [...] - Offer information on support groups like [facility] and Adult Children of Alcoholics and Dysfunctional [...] to address underlying issues. Utilize a daily transportation planner incorporating affirmations and goals to foster [...] of the potential tear. Consult with an clinical trial specialist for a comprehensive evaluation and to [...] to address underlying issues. Utilize a daily transportation planner incorporating affirmations and goals to foster [...] of the potential tear. Consult with an clinical trial specialist for a comprehensive evaluation and to [...] and continue addressing the identified issues. 01/23/2024 PTSD (post-traumatic stress disorder) (ICD-10 - F43.10) Assessment and Plan: 1. Anxiety and Depression - Continue with the prescribed medication regimen. - Encourage engagement in self-care activities, such as journaling, to monitor progress and emotions. - Set small, manageable daily goals to prevent decision paralysis. - Provide a list of local support groups, including [facility] and [employer], for additional support. 2. Family-related Stress - [...] progress and continue addressing the outlined issues. Plan Of Treatment No Information Insurance Providers Payer Name Payer Address Payer Phone Subscriber Number Group Number Insured Name Patient Relationship to Insured Coverage Start Date Coverage End Date [facility] [address] [place] [phone] [id number] Camille Hendricks Self - patient is the [...]
--- OUTSIDE RECORDS SUMMARY | 2024-11-29 09:56 | XMS_ITS | Encounter Summary ---
Author Organization [facility] Address [address] [place] [address] Phone Care Team Providers Care Gang Punch Operator Name Role Phone Yancy Guerrero MD Primary Care Provider + [phone] Lupillo Reyes MD Unavailable [phone] Encounter Details Date Type Department Care Team (Latest Contact Info) Description 11/25/2010 Orders Only [facility] Wendy Choudhary, ISAIAS [address] [facility] [address] [place], [place] [id number] Social History Tobacco Use Types Packs/Day Years Used Date Smoking Tobacco: Never Assessed Comments Unknown Sex and Gender Information Value Date Recorded Sex Assigned at Not on file Legal 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 TIMBER SELECTOR Gender Identity Not on file Sexual Orientation [...] COVID: Suspected 12/06/2019 12/06/2019 12/20/2019 3:05 AM TIMBER SELECTOR COVID: Suspected 01/14/2021 01/14/2021 01/14/2021 9:43 PM TIMBER SELECTOR COVID: Suspected 01/17/2021 01/17/2021 01/18/2021 5:33 AM TIMBER SELECTOR COVID: Suspected 08/06/2021 08/06/2021 08/07/2021 3:05 AM CDT COVID: Suspected 08/06/2021 08/06/2021 08/07/2021 3:18 AM CDT COVID19 08/06/2021 08/06/2021 08/16/2021 3:05 AM CDT COVID: Recovered Comment:Added based on recent COVID infection. 08/16/2021 08/16/2021 12/14/2021 3:05 AM C DT COVID: Suspected 09/23/2021 09/23/2021 09/23/2021 10:56 PM CDT COVID: Suspected 09/29/2021 09/29/2021 09/29/2021 10:32 PM CDT COVID: Suspected 12/24/2021 12/25/2021 12/25/2021 3:05 AM TIMBER SELECTOR COVID: Suspected 12/25/2021 12/25/2021 12/26/2021 3:05 AM TIMBER SELECTOR COVID: Suspected 12/25/2021 12/25/2021 12/26/2021 3:49 PM TIMBER SELECTOR MDR gram neg/ESBL 2024 08/28/2024 documented as of this encounter Care Teams Gang Punch Operator Relationship Specialty Start Date End Date Yancy Guerrero MD [address] [place] [address] PCP - General 05/22/16 Lupillo Reyes MD [address] [facility] [address] [place] [address] Consulting Physician Orthopedic Surgery 07/26/22 documented as of this encounter
--- OUTSIDE RECORDS SUMMARY | 2024-11-29 09:56 | XMS_ITS | Encounter Summary ---
Author Organization [facility] Address [address] [place] [address] Phone Care Team Providers Care Salt Lifter Name Role Phone Yancy Guerrero MD Primary Care Provider + [phone] Lupillo Reyes MD Unavailable [phone] Encounter Details Date Type Department Care Team (Latest Contact Info) Description 04/10/2013 Orders Only [facility] Wendy Choudhary RN [address] [facility] [address] [place], [place] [id number] Social History Tobacco Use Types Packs/Day Years Used Date Smoking Tobacco: Never Assessed Comments Unknown Sex and Gender Information Value Date Recorded Sex Assigned at Not on file Legal 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 CENTRIFUGAL SPINNER Gender Identity Not on file Sexual Orientation [...] COVID: Suspected 12/06/2019 12/06/2019 12/20/2019 3:05 AM CENTRIFUGAL SPINNER COVID: Suspected 01/14/2021 01/14/2021 01/14/2021 9:43 PM CENTRIFUGAL SPINNER COVID: Suspected 01/17/2021 01/17/2021 01/18/2021 5:33 AM CENTRIFUGAL SPINNER COVID: Suspected 08/06/2021 08/06/2021 08/07/2021 3:05 AM CDT COVID: Suspected 08/06/2021 08/06/2021 08/07/2021 3:18 AM CDT COVID19 08/06/2021 08/06/2021 08/16/2021 3:05 AM CDT COVID: Recovered Comment:Added based on recent COVID infection. 08/16/2021 08/16/2021 12/14/2021 3:05 AM C DT COVID: Suspected 09/23/2021 09/23/2021 09/23/2021 10:56 PM CDT COVID: Suspected 09/29/2021 09/29/2021 09/29/2021 10:32 PM CDT COVID: Suspected 12/24/2021 12/25/2021 12/25/2021 3:05 AM CENTRIFUGAL SPINNER COVID: Suspected 12/25/2021 12/25/2021 12/26/2021 3:05 AM CENTRIFUGAL SPINNER COVID: Suspected 12/25/2021 12/25/2021 12/26/2021 3:49 PM CENTRIFUGAL SPINNER MDR gram neg/ESBL 2024 08/28/2024 documented as of this encounter Care Teams Salt Lifter Relationship Specialty Start Date End Date Yancy Guerrero MD [address] [place] [address] PCP - General 05/22/16 Lupillo Reyes MD [address] [email or web address] [address] [place] [address] Consulting Physician Orthopedic Surgery 07/26/22 documented as of this encounter
--- OUTSIDE RECORDS SUMMARY | 2024-11-29 09:56 | XMS_ITS | Encounter Summary ---
Author Organization [facility] Address [address] [place] [address] Care Team Providers Care Full Time Staff Interpreter Name Role Phone Yancy Guerrero MD Primary Care Provider + Encounter Details Date Type Department Care Team (Latest Contact Info) Description 05/10/2004 Outpatient Historical HIS [facility] Tod Cifuentes MD [address] [facility] [address] [address] SCREENING MAMM-MAILG NEOPL-OTHER (Primary Dx) Social History Tobacco Use Types Packs/Day Years Used Date Smoking Tobacco: Never Assessed Comments Unknown Sex and Gender Information Value Date Recorded Sex Assigned at Not on file Legal Sex Female 4:27 AM ACCOUNTS PAYABLE SPECIALIST Gender Identity Not on file Sexual Orientation Not on file documented as of this encounter Plan of Treatment Not on file documented as of this encounter Visit Diagnoses Diagnosis Other screening mammogram- Primary documented in this encounter Care Teams Full Time Staff Interpreter Relationship Specialty Start Date End Date Yancy Guerrero MD [address] [place] [address] PCP - General Internal Medicine 09/22/14 documented as of this encounter
--- OUTSIDE RECORDS SUMMARY | 2024-11-29 09:56 | XMS_ITS | Clinical Summary ---
Author Organization [facility] Address [address] [place] [address] Care Team Providers Care Railroad Design Consultant Name Role Phone Yancy Guerrero MD Primary Care Provider + [phone] Lupillo Reyes MD Unavailable [phone] Allergies No known active allergies Medications citalopram [...] mouth daily 30 tablet 1 4 Active acetaminophen 500 mg capsule Take 2 capsules (1,000 mg total) by mouth every 6 (six) hours as needed for fever 30 tablet 5 Active oxyCODONE (ROXICODONE) 5 mg immediate release tabletIndications :Pain Take 1 tablet (5 mg total) by mouth every 4 (four) hours as needed for pain 7 tablet 5 Active polyethylene glycol (MIRALAX) 17 gram/dose bulk powder Take 17 g by mouth daily 510 g 5 Active metoprolol XL (TOPROL-XL) 25 mg extended release tablet Take 0.5 tablets (12.5 mg total) by mouth daily 15 tablet 3 5 Active multivitamin tabletIndications :Vitamin Deficiency Prevention Take 1 tablet by mouth Active turmeric root extract 500 mg capsule Take by mouth Active phenazopyridine (PYRIDIUM) 200 mg tablet Take 1 tablet (200 mg total) by mouth 3 (three) times a day as needed for bladder spasms (dysuria) 10 tablet 5 Active nitrofurantoin monohydrate (MACROBID) 100 mg capsule Take 1 capsule (100 mg total) by mouth 2 (two) times a day 10 capsule 5 Active Active Problems Problem Noted Date Diagnosed Date Right kidney stone 07/05/2024 Pyelonephritis of right kidney 06/24/2024 Overview (06/24/2024): 64 y.o. female with pmh anxiety/depression, AF (Xarelto), HTN, HLD transferred from [facility] for higher level of care. Had [...] 03/21/2023 Assessment & Plan (03/23/2023 7:20 AM POLE SANDER OPERATOR): Atenolol resumed with reasonable control Continue to hold Dyazide and losartan until outpatient follow-up HLD (hyperlipidemia) 03/21/2023 Assessment & Plan (03/22/2023 2:05 PM POLE SANDER OPERATOR): Continue atorvastatin Transaminases have normalized. Depression with anxiety 03/21/2023 Assessment & Plan (03/23/2023 7:20 AM POLE SANDER OPERATOR): Cont citalopram 40mg daily and lorazepam 0.5mg BID Resolved Problems Problem Noted Date Diagnosed Date Resolved Date Hypotension 03/21/2023 03/22/2023 Assessment & Plan (03/21/2023 8:09 PM POLE SANDER OPERATOR): - Presenting with BP 80/50s in setting of reduced PO intake and ongoing BP meds - (+)orthostatics on presentation - Hold BP meds, check orthostatics in AM - Restart meds as needed Headache 03/21/2023 03/22/2023 Assessment & Plan (03/21/2023 8:10 PM POLE SANDER OPERATOR): - Tylenol ordered; avoid NSAIDs Weakness 03/21/2023 03/23/2023 Assessment & Plan (03/22/2023 2:06 PM POLE SANDER OPERATOR): TSH and B12 within acceptable limits. Monitor symptoms as blood pressure and renal function recover Nausea 03/21/2023 03/22/2023 Assessment & Plan (03/21/2023 8:10 PM POLE SANDER OPERATOR): - Zofran ordered USN (acute kidney injury) 03/21/2023 Assessment & Plan (03/23/2023 7:19 AM POLE SANDER OPERATOR): Creatinine improved today Check renal function and electrolytes in outpatient follow-up Continue to hold Dyazide and losartan until outpatient follow-up. Abnormal transaminases 03/21/202303/22 Assessment & Plan (03/21/2023 8:11 PM POLE SANDER OPERATOR): - Elevated in setting of recent viral infection and presumed hypovolemia - Trend in AM - if continues to be elevated consider hepatitis panel/HIV given occupation history Complete rupture of rotator cuff 07/13/2022 03/21/2023 Acute medial meniscus tear of left knee 06/25/2020 03/21/2023 Overview (06/25/2020): Added automatically from request for surgery [id number] Axillary mass, left 12/30/2016 03/21/19 24 Lipoma of forehead 11/23/2015 4 Pain in shoulder 11/12/2014 03/21/2023 Syncope 03/06/2013 03/21/2023 Encounters Date Type Department Care Team Description 11/13/2024 Telephone [facility] Orthopaedic Surgery [address] [facility] 2nd Floor [address] [place] [address] Ok Urbina MD 11/12/2024 Telephone [facility] Orthopaedic Surgery [address] [facility] 2[address] Floor [address] [place] [address] Ok Urbina MD 11/06/2024 Telephone [facility] Orthopaedic Surgery [address] [facility] 2[address] Floor [address] [place] [address] Ok Urbina MD 08/30/2024 Results Follow-Up [facility] Emergency Department [address] [place] [address] Karthikeyan Nielson MD Urine culture Urine 08/28/2024 7:15 PM CDT - 08/29/2024 5:11 AM CDT Emergency [facility] Emergency Department [address] [place] [address] Damon Strauss MD Kanumuri, Raghu, MD Depression, unspecified depression type (Primary Dx); Alcohol abuse; Acute cystitis without hematuria Discharge Disposition: Discharge to home or self care from Last 3 Months Immunizations Immunization Administration [...] = 0.6 oz pur e alcohol) socially [facility] Utilities Answer Date Recorded In the past 12 months has th e electric, gas, oil, or water company threatened to shut off services in your home? No 06/02/2023 Social Connection and Isolation Panel Answer Date Recorded In a typical week, how many times do you talk on the phone with family, friends, or neighbors? More than three times a week 06/02/2023 How often do you get togethe r with friends or relatives? More than three times a week 06/02/2023 How often do you attend chur ch or alevism services? More than 4 times per year 06/02/2023 Do you belong to any clubs o r organizations such as episcopalian groups, unions, fraternal or athletic groups, or school groups? No 06/02/2023 How often do you attend meet ings of the clubs or organizations you belong to? Never 06/02/2023 Are you , , di vorced, , never , or living with a partner? 06/02/2023 AUDIT-C Answer Date Recorded Q1: How often do you have a drink containing alc ohol? 2-4 times a month 07/19/2024 Q2: How many drinks containi ng alcohol do you have on a typical day when you are drinking? 1 or 2 07/19/2024 Q3: How often do you have si x or more drinks on one occasion? Never 07/19/2024 Overall Financial Resource Strain (CARDIA) Answe r [...] place to sleep or slept in a skilled nursing (including now)? No 06/02/2023 Personal Safety Answer Date Recorded Have you ever been in or are you currently in a harmful physical or emotional relationship or is someone making you feel afraid or unsafe? Denies 08/28/2024 Comments No Sex and Gender Information Value Date Recorded Sex Assigned at Not on file Legal 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 POLE SANDER OPERATOR Gender Identity Not on file Sexual Orientation Not on file Obstetrics History Last Filed Vital Signs Vital Sign Reading Time Taken Comments Blood Pressure 110/57 08/28/2024 6:56 PM CDT Pulse 71 08/28/2024 6:56 PM CDT Temperature 36.6 C (97.9 F) 08/28/2024 6:56 PM CDT Respiratory Rate 16 08/28/2024 6:56 PM CDT Oxygen Saturation 95% 08/28/2024 6:56 PM CDT Inhaled Oxygen Concentration - - Weight 77.1 kg (170 lb) 08/28/2024 6:56 PM CDT Height 167.6 cm (5' 6) 07/19/2024 10:50 AM CDT Body Mass Index 27.44 07/19/2024 10:50 AM CDT Plan of Treatment Health Maintenance Due Date Last Done Comments Depression Screening 1960 Hepatitis B Screening 06/22/1979 Regular Well Visit/Exam 18-64 06/22/1979 Breast Cancer Screening-Mammogram 10/30/2020 10/31/2019, 10/31/2019, 10/05/2017, Additional history exists Covid-19 Vaccine (2024-2 6 season) 2024 03/13/2020, 02/18/2020 Influenza Vaccine (#1) 2024 3, 11/13/2022, 11/18/2021, Additional history exists Pneumococcal [...] Completed 2024 Medical Devices Implanted Type Area Library Services Coordinator Device Identifier Shelf Expiration Date Model / Serial / Lot [employer] Corkscrew Tigertail 5.5mm 14.7mm Drive Mechanism Vent 2 Square [id number] - [id number] Implanted:Qty: 1 on 07/26/2022 by Lupillo Reyes MD at [facility] Right: Shoulder [employer] 02/13/2024 AR-[id number] T / / [id number] [employer] Corkscrew Tigertail 5.5mm 14.7[address] Drive Mechanism Vent 2 Square [id number] - [id number] Implanted:Qty: 1 on 07/26/2022 by Lupillo Reyes MD at [facility] Right: Shoulder [employer] 11/12/2024 AR-1927BCF T / / [id number] [employer] Swivelock C 4.75mm 19.1mm Closed Eyelet Vent [place] Suture Ar-2324bcc - [id number] Implanted:Qty: 1 on 07/26/2022 by Lupillo Reyes MD at [facility] Right: Shoulder [employer] 02/12/2026 AR-[id number] / / [id number] Explanted Type Area Library Services Coordinator Device Identifier Shelf Expiration Date Model / Serial / Lot [employer] Universa 6fr 24cm Radiopaque Graduate Firm Monofilament Tether [id number] - [id number] Implanted:Qty: 1 on 2024 by Chelsea Haywood MD at [facility] Explanted:Qty: 1 on 07/19/2024 by Rob Kline MD Stent Right: Ureter [employer] [id number] 12/28/2026 [id number] / / [id number] Procedures Procedure Name Priority Date/Time Associated Diagnosis Comments ETHANOL STAT 08/29/2024 1:07 AM CDT HEPATITIS C ANTIBODY Routine 2024 5:02 PM CDT COLONOSCOPY 07/18/2017 9:10 AM CDT from Last 3 Months or Most Recently Relevant to Health Maintenance Results * (ABNORMAL) Ethanol (08/29/2024 1:07 AM CDT) Ethanol 133(H) <=10 mg/dL [facility] ([place]) Comment: Interpretive Data Legal limit of intoxication > or = 80 mg/dL Levels > or = 400 mg/dL are potentially TOXIC. Current interpretive data was last revised on 2018. Blood 08/29/2024 1:07 AM CDT 08/29/2024 1:11 AM CDT Adebayo Pearce MD LAB BLOOD ORDERABLES Final Res ult [facility] 1 [facility] Department [place] [address] * Hepatitis C antibody Blood (2024 5:02 PM CDT) Hep C Ab Nonreactive Nonreactive Comment:Antibodies to HCV no t detected. Does NOT exclude the possibility of recent exposure to HCV. Current interpretive data was last revised on 21 Blood 2024 5:02 PM CDT 2024 5:30 PM CDT Devon [facility] LAB MICROBIOLOGY - GENER AL ORDERABLES Final Result [facility] Department [place] [address] * COLONOSCOPY (07/18/2017 9:10 AM CDT) Anatomical Region Laterality Modality Other Narrative Procedure Note Mike Locke MD - 07/18/2017 9:10 AM CDT Digestive [facility] Patient Name: Camille Shultz Procedure Date: [...] passed under direct vision.The Pediatric Colonoscope [id number] was introduced through the anus and advanced [...] Electronically signed by Mike Locke M.D. Mike oLcke MD 07/18/2017 9:48:46 AM Number of Addenda: 0 Note Initiated On: 07/18/2017 9:10 AM Procedure Code(s): --- Professional --- 82578, Colonoscopy, flexible; diagnostic, including collection of specimen(s) by brushing or washing, when performed (separateprocedure) Diagnosis Code(s): --- Professional --- Z86.010, Personal history of colonic polyps K64.8, Other hemorrhoids K57.30, Diverticulosis of large intestine without perforation orabscess without bleeding CPT copyright 2017 [employer]. All rights reserved. The codes documented in this report are preliminary and upon computer science professor reviewmay be revised to meet current compliance requirements. Recognized by the [employer] for promoting quality in endoscopy Mike Locke MD ENDOSCOPY PROCEDURES Final Result from Last 3 Months or Most Recently Relevant to Health Maintenance Additional Health Concerns Infection Onset Date Last Indicated MDR gram neg/ESBL 2024 08/28/2024 Insurance [facility] WORK[employer] [facility]ENS[facility] [place] [id number] [facility] Advance Directives For more information, please contact: [phone] * Full Code (Latest Code Status on [...] 8:32 AM 07/18/2017 12:39 PM Care Teams Railroad Design Consultant Relationship Specialty Start Date End Date Yancy Guerrero MD [address] [place] [address] PCP - General 05/22/16 Lupillo Reyes MD [address] [place] [address] Consulting Physician Orthopedic Surgery 07/26/22
--- OUTSIDE RECORDS SUMMARY | 2024-11-29 09:56 | XMS_ITS | Clinical Summary ---
Author Organization [facility] Address [address] [place] [address] Care Team Providers Care Product/Device Technologist Name Role Phone Yancy Guerrero MD Primary Care Provider Social History Tobacco Use Types Packs/Day Years [...] Vaccines (1 of 2) 06/22/2011 COVID-19 Vaccine ( - 2023-2 5 season) 2024 Influenza Adult (#1) 2024 RSV Immunization or 60+ Years (1 - 1-dose 75+ series) 2036 Meningococcal B Vaccine Aged Out No l onger eligible based on patient's age to complete this topic Meningococcal Vaccine Aged Out No laina bud eligible based on patient's age to complete this topic RSV Immunizations Under 20 Months Aged Out No longer eligible based on patient's age to complete this topic Insurance [employer] Care Teams Product/Device Technologist Relationship Specialty Start Date End Date Yancy Guerrero MD [address] [place] [address] PCP - General INTERNAL MEDICINE 06/26/24
--- OUTSIDE RECORDS SUMMARY | 2024-11-29 09:56 | XMS_ITS | Encounter Summary ---
Author Organization [facility] [employer] [facility] Address [address] [place] [address] Phone Care Team Providers Care Infectious Waste Technician Name Role Phone Yancy Guerrero MD Primary Care Provider + [phone] Lupillo Reyes MD Unavailable [phone] Encounter Details Date Type Department Care Team (Late st Contact Info) Description 06/24/2024 Documentation [facility] Medicine Urology [address] [facility] Medical Office Building [address] [place] [address] Chelsea Haywood MD [address] [facility] [address] [place] [address] Social History Tobacco Use Types Packs/Day Years Used Date Smoking Tobacco: Every Day Cigarettes 0.2 2 Smokeless Tobacco: Never Comments:Two packs per week for last 2 years Alcohol Use Standard Drinks/Week Comments Yes 0 (1 standard drink = 0.6 oz pur e alcohol) socially [facility] Utilities Answer Date Recorded In the past 12 months has [employer] electric, gas, oil, or water company threatened [...] any clubs o r organizations such as temple groups, unions, fraternal or athletic groups, or [...] place to sleep or slept in a chcf (including now)? No 06/02/2023 Personal Safety Answer Date Recorded Have you ever been in or are you currently in a harmful physical or emotional relationship or is someone making you feel afraid or unsafe? 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 TREE FARMER Gender Identity Not on file Sexual Orientation [...] diff and platelet, CMP Fax Labs To: [facility] ([phone]) Call For a Change in Clinical Status, Critical/Abnormal Results, or Order Verification: [facility] ([phone]) OPAT Summary of Consult Summary of Consult: 64 y.o. female with pmh anxiety/depression, AF (Xarelto), HTN, HLD transferred from [facility] for higher level of care. [...] documented as of this encounter Care Teams Infectious Waste Technician Relationship Specialty Start Date End Date Yancy Guerrero MD [address] [place] [address] PCP - General 05/22/16 Lupillo Reyes MD [address] [facility] [address] [place] [address] Consulting Physician Orthopedic Surgery 07/26/22 documented as of this encounter
[2024-11-29 10:39] LABS: Alanine Aminotransferase 20 U/L (6-35); Albumin Level 4.5 g/dL (3.5-5.1); Alkaline Phosphatase 81 U/L (38-126); Anion Gap 10 mmol/L (4-12); Aspartate Amino Transferase 23 U/L (14-36); Bilirubin,Total 0.6 mg/dL (0.2-1.3); Blood Urea Nitrogen 21 mg/dL (7-17); Calcium 10.5 mg/dL (8.4-10.2); Carbon Dioxide 28 mmol/L (22-30); Chloride 103 mmol/L (98-107); Cholesterol 268 mg/dL (0-200); Creatine Kinase 41 U/L (30-135); Estimated Glomerular Filt Rate > 60; Glucose 142 mg/dL (65-110); HDL Direct 53 mg/dL; Magnesium 1.8 mg/dL (1.6-2.3); Osmolality Calculated 297 mOsm/kg (285-295); Potassium 4.8 mmol/L (3.4-5.0); Sodium 141 mmol/L (137-145); Total Protein 8.0 g/dL (6.3-8.2); Triglycerides 420 mg/dL (<150)
[2024-11-29 10:49] LABS: NT Pro B Type Natriuretic Pept 35 pg/mL (19.9-100)
[2024-11-29 10:57] LABS: Free T4 Free Thyroxine 0.63 ng/dL (0.78-2.19)
[2024-11-29 10:59] LABS: Free T3 3.67 pg/mL (2.18-3.98)
[2024-11-29 11:10] LABS: Thyroid Stimulating Hormone 2.250 uIU/mL (0.465-4.680)
[2024-11-29 11:32] LABS: Vitamin B12 290.0 pg/mL (239-931)
== END 2024-11-29 09:28 | disposition home or self-care (01) ==
LOC: CHSLAB 09:29
PROVIDERS: PCP Internal Medicine; Visit Provider Internal Medicine
DX: E53.8 Deficiency of other specified B group vitamins (principal); E11.9 Type 2 diabetes mellitus without complications; I10 Essential (primary) hypertension; E78.2 Mixed hyperlipidemia; F10.29 Alcohol dependence with unspecified alcohol-induced disorder; E55.9 Vitamin D deficiency, unspecified; I48.92 Unspecified atrial flutter; G62.9 Polyneuropathy, unspecified
CPT/HCPCS: 36415; 80053; 80061; 81003; 82306; 82550; 82607; 83036; 83735; 83880; 84439; 84443; 84481; 85027; 87086

== ENCOUNTER 2025-01-23 09:32 | Outpatient (CLI) | payer OTHER, SELFPAY ==
--- NOTE | ~2025-01-23 | CT_ITS ---
EXAMINATION: CT lung screening, 01/23/2025 9:41 COMMUNICATIONS CONTROLLER HISTORY: HISTORY OF NICOTINE DEPENDENCE COMPARISON: None TECHNIQUE: CT scan of the chest was performed without IV contrast. One or more of the following dose reduction techniques were used: automated exposure control, adjustment of the mA and/or kV according to patient size, use of iterative reconstruction technique. FINDINGS: LUNGS: No tracheomalacia. No bronchiectasis. No significant emphysematous or pulmonary fibrotic changes. Nonspecific elevation left hemidiaphragm with left basilar atelectasis. HEART AND PERICARDIUM: Within normal limits. AORTA: Normal caliber aorta. ADENOPATHY/MEDIASTINUM: None. LIMITED VIEWS OF THE ABDOMEN: Mild hepatic steatosis. OSSEOUS STRUCTURES: No acute osseous abnormality.No suspicious lesions. OVERLYING SOFT TISSUES: Unremarkable. THYROID: The thyroid is unremarkable. IMPRESSION: 1. Minimal chronic changes. No micronodules identified. Lung-RADS category 1. 12 months follow-up recommended. Reviewed, dictated and finalized at location P. UNICATIONS CONTROLLER
== END 2025-01-23 09:33 | disposition home or self-care (01) ==
PROVIDERS: PCP Internal Medicine; Visit Provider Internal Medicine
DX: Z12.2 Encounter for screening for malignant neoplasm of respiratory organs (principal); Z87.891 Personal history of nicotine dependence
CPT/HCPCS: 71271

== ENCOUNTER 2025-01-30 07:27 | Outpatient (CLI) | payer OTHER, SELFPAY ==
--- NOTE | ~2025-01-30 | DEXA_ITS ---
Bone Density Report Name: JULI KOO Age: 64 Sex: Female Ethnicity: White Date of : 1960 Indication: postmenopausal; screening for osteoporosis; height loss; prior fracture; hysterectomy; Referring Provider: Yancy Guerrero Study: Bone densitometry was performed. Exam Date: January 30, 2025 Accession number: [id number] Bone Density: Region BMD T-score Z-score Classification AP Spine(L1, L2, L3) 1.278 2.4 4.0 Normal Femoral Neck (Left) 0.815 -0.3 1.1 Normal Total Hip (Left) 1.096 1.3 2.4 Normal Femoral Neck (Right) 0.849 0.0 1.4 Normal Total Hip (Right) 1.047 0.9 2.0 Normal Femoral Neck Mean 0.832 -0.2 1.3 Normal Total Hip Mean 1.072 1.1 2.2 Normal World Health Organization criteria for BMD impression classify patients as: Normal (T-score at or above -1.0), Osteopenia (T-score between -1.0 and -2.5), or Osteoporosis (T-score at or below -2.5). 10-year Fracture Risk: FRAX not reported because: All T-scores for Spine Total, Hip Total, Femoral Neck at or above -1.0 Clinical Information Provided by Patient: Has had a low trauma fracture Smokes Has the following medical conditions: Hysterectomy Patient maximum height was 67 Menopause Age: 55 No regular weight bearing exercise Onset of menses at age 13 Number of children 2 Impression: The patient has normal bone mass. The patient has risk factors, including: smoking, previous fracture. Discussion: BONE DENSITY IS ABOVE THE MINIMUM DESIRABLE LEVEL AT ALL SKELETAL SITES TESTED. This patient?s bone mineral density is above the minimum desirable level (T-score -1.0 or better) at all sites measured. The patient should follow a healthful lifestyle (good nutrition with adequate calcium and vitamin D, and appropriate weight-bearing exercise). Follow-Up: Consider repeating this study in 5 years or sooner if there is some new clinical indication. Reported by: JAYDON on 01/30/2025 8:00:00 AM. Reviewed, dictated and finalized at location A.
--- NOTE | ~2025-01-30 | MM_ITS ---
EXAMINATION: MM screening rachael BI w shavon HISTORY: Screening TECHNIQUE: Craniocaudal and mediolateral oblique 3-D tomosynthesis images were obtained and synthetic 2-D images were generated. CAD analysis was submitted and interpreted. COMPARISON: Comparison to multiple prior studies sequentially, with oldest reviewed study dated , 10/13/2021 BREAST PARENCHYMAL COMPOSITION: Not Dense: There are scattered areas of fibroglandular density. FINDINGS: There is no evidence of suspicious mass, calcification, or architectural distortion to suggest malignancy in either breast. IMPRESSION: 1. No mammographic evidence of malignancy. 2. Recommend routine screening mammography in one year. BI-RADS Category 1: Negative Reviewed, dictated and finalized at location A. NICIAN ASSISTANT
--- OUTSIDE RECORDS SUMMARY | 2025-01-30 07:31 | XMS_ITS | Encounter Summary ---
Author Organization [facility] [employer] [facility] Address [address] [place] [address] Phone Care Team Providers Care Supervisor Bottle Machines Name Role Phone Yancy Guerrero MD Primary Care Provider + [phone] Lupillo Reyes MD Unavailable [phone] Encounter Details Date Type Department Care Team (Latest Contact Info) Description 02/28/2023 Orders Only [facility] Wendy Choudhary, ISAIAS [address] [facility] [address] [place], [place] [id number] Social History Tobacco Use Types Packs/Day Years [...] file Legal 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 SUPERVISOR [employer] Gender Identity Not on file Sexual Orientation [...] as of this encounter Care Teams Supervisor Bottle Machines Relationship Specialty Start Date End Date Yancy Guerrero MD [address] [place] [address] PCP - General 05/22/16 Lupillo Reyes MD [address] [facility] [address] [address] Consulting Physician Orthopedic Surgery 07/26/22 documented as of this encounter
--- OUTSIDE RECORDS SUMMARY | 2025-01-30 07:31 | XMS_ITS | Encounter Summary ---
Author Organization [facility] [employer] [facility] Address [address] [place] [address] Phone Care Team Providers Care Communications Manager Name Role Phone Yancy Guerrero MD Primary Care Provider + [phone] Lupillo Reyes MD Unavailable [phone] Encounter Details Date Type Department Care Team (Latest Contact Info) Description 03/06/2023 Orders Only [facility] Wendy Choudhary, ISAIAS [address] [facility] [address] [place], [place] [id number] Social History Tobacco Use Types Packs/Day Years [...] on file Legal 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 COMPOUND SPECIALIST Gender Identity Not on file Sexual [...] documented as of this encounter Care Teams Communications Manager Relationship Specialty Start Date End Date Yancy Guerrero MD [address] [place] [address] PCP - General 05/22/16 Lupillo Reyes MD [address] [facility] [address] [address] Consulting Physician Orthopedic Surgery 07/26/22 documented as of this encounter
--- OUTSIDE RECORDS SUMMARY | 2025-01-30 07:32 | XMS_ITS | Encounter Summary ---
Author Organization [facility] Address [address] [place] [address] Care Team Providers Care Hot Mix Operator Name Role Phone Yancy Guerrero MD Primary Care Provider + Encounter Details Date Type Department Care Team (Latest Contact Info) Description 01/24/2008 Outpatient Historical [facility] Tod Cifuentes MD [address] [facility] [address] [place] [address] Other Screening Mammogram Social History Tobacco Use Types Packs/Day Years Used Date Smoking Tobacco: Never Assessed Comments Unknown Sex and Gender Information Value Date Recorded Sex Assigned at Not on file Legal Sex Female 4:27 AM CROSS CUT SAW OPERATOR Gender Identity Not on file Sexual Orientation Not on file documented as of this encounter Plan of Treatment Not on file documented as of this encounter Procedures Procedure Name Priority Date/Time Associated Diagnosis Comments MAMMO SCREEN BILAT W OR WO CAD Routine 01/24/2008 9:19 AM CROSS CUT SAW OPERATOR documented in this encounter Results * MAMMO DIGITAL SCREEN BILAT (01/24/2008 9:19 AM CROSS CUT SAW OPERATOR) Anatomical Region Laterality Modality Breast Bilateral Other 01/24/2008 9:19 AM CROSS CUT SAW OPERATOR Narrative 01/25/2008 7:03 PM CROSS CUT SAW OPERATOR [facility] [address] [place], [place] [address] Admit Date: 01/24/2008 JULI KOO Sex: F Admit Prov: TOD DALLAS Date: 1960 Primary Care Prov: PCP, UNKNOWN CMRN: [id number] [facility] [id number] IM[facility]ING [facility] Ordering Prov: TOD DALLAS Accession Number: [id number] Interpretation BILATERAL SCREENING DIGITAL MAMMOGRAMS WITH COMPUTER [...] AMK Procedure Note Olena Christy - 01/25/2008 [facility] [address] [place], [place] [address] Admit Date: 01/24/2008 JULI KOO Sex: F Admit Prov: TOD DALLAS Date: 1960 Primary Care Prov: PCP, UNKNOWN CMRN: [id number] [id number] IM[facility] Ordering Prov: TOD DALLAS Interpretation [...] mammogram documented in this encounter Care Teams Hot Mix Operator Relationship Specialty Start Date End Date Yancy Guerrero MD [address] [place] [address] PCP - General Internal Medicine 09/22/14 documented as of this encounter
--- OUTSIDE RECORDS SUMMARY | 2025-01-30 07:32 | XMS_ITS | Clinical Summary ---
Author Organization [facility] Address [address] [place] [address] Care Team Providers Care Biomedical Manager Name Role Phone Yancy Guerrero MD Primary Care Provider + [phone] Lupillo Reyes MD Unavailable Allergies No known active allergies Medications citalopram [...] AF (Xarelto), HTN, HLD transferred from [facility] for higher level of care. Had Right [...] 03/21/2023 Assessment & Plan (03/23/2023 7:20 AM BELTING INSPECTOR): Atenolol resumed with reasonable control Continue to hold Dyazide and losartan until outpatient follow-up HLD (hyperlipidemia) 03/21/2023 Assessment & Plan (03/22/2023 2:05 PM BELTING INSPECTOR): Continue atorvastatin Transaminases have normalized. Depression with anxiety 03/21/2023 Assessment & Plan (03/23/2023 7:20 AM BELTING INSPECTOR): Cont citalopram 40mg daily and lorazepam 0.5mg BID Resolved Problems Problem Noted Date Diagnosed Date Resolved Date Hypotension 03/21/2023 03/22/2023 Assessment & Plan (03/21/2023 8:09 PM BELTING INSPECTOR): - Presenting with BP 80/50s in setting of reduced PO intake and ongoing BP meds - (+)orthostatics on presentation - Hold BP meds, check orthostatics in AM - Restart meds as needed Headache 03/21/2023 03/22/2023 Assessment & Plan (03/21/2023 8:10 PM BELTING INSPECTOR): - Tylenol ordered; avoid NSAIDs Weakness 03/21/2023 03/23/2023 Assessment & Plan (03/22/2023 2:06 PM BELTING INSPECTOR): TSH and B12 within acceptable limits. Monitor symptoms as blood pressure and renal function recover Nausea 03/21/2023 03/22/2023 Assessment & Plan (03/21/2023 8:10 PM BELTING INSPECTOR): - Zofran ordered SUN (acute kidney injury) 03/21/2023 Assessment & Plan (03/23/2023 7:19 AM BELTING INSPECTOR): Creatinine improved today Check renal function and electrolytes in outpatient follow-up Continue to hold Dyazide and losartan until outpatient follow-up. Abnormal transaminases 03/21/202303/22 Assessment & Plan (03/21/2023 8:11 PM BELTING INSPECTOR): - Elevated in setting of recent viral infection and presumed hypovolemia - Trend in AM - if continues to be elevated consider hepatitis panel/HIV given occupation history Complete rupture of rotator cuff 07/13/2022 03/21/2023 Acute medial meniscus tear of left knee 06/25/2020 03/21/2023 Overview (06/25/2020): Added automatically from request for surgery [id number] Axillary mass, left 12/30/2016 03/21/19 24 Lipoma of forehead 11/23/2015 4 Pain in shoulder 11/12/2014 03/21/2023 Syncope 03/06/2013 03/21/2023 Encounters Date Type Department Care Team Description 11/29/2024 2:20 PM CDT Office Visit [facility] Medicine Orthopaedic Surgery [address] [place] [address] Ok Urbina MD Right shoulder pain, unspecified chronicity (Primary Dx) 11/13/2024 Telephone [facility] Medicine Orthopaedic Surgery [address] [place] [address] Ok Urbina MD 11/12/2024 Telephone [facility] Orthopaedic Surgery [address] [place] [address] Ok Urbina MD 11/06/2024 Telephone [facility] Orthopaedic Surgery [address] [place] [address] Ok Urbina MD from Last 3 Months Immunizations Immunization [...] = 0.6 oz pur e alcohol) socially [facility] Utilities Answer Date Recorded In the past 12 months has [employer], gas, oil, or water company threatened to [...] often do you attend chur ch or scientologist services? More than 4 times per year 06/02/2023 Do you belong to any clubs o r organizations such as cheondoism groups, unions, fraternal or athletic groups, or [...] on file Legal 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 BELTING INSPECTOR Gender Identity Not on file Sexual [...] Additional history exists Covid-19 Vaccine (3 - 2024-2 6 season) 2024 03/13/2020, 02/18/2020 Influenza Vaccine (#1) 2024 , 01/09/2023, 11/13/2022, Additional history exists Pneumococcal vaccine <65 (3 [...] Completed 2024 Medical Devices Implanted Type Area Signal Manager Device Identifier Shelf Expiration Date Model / Serial / Lot [employer] Corkscrew Tigertail 5.5mm 14.7mm Drive Mechanism Vent 2 Square [id number] - [id number] Implanted:Qty: 1 on 07/26/2022 by Lupillo Reyes MD at [facility] Right: Shoulder [employer] 02/13/2024 [id number] T / / [id number] [employer] Corkscrew Tigertail 5.5mm 14.7[address] Drive Mechanism Vent 2 Square [id number] - [id number] Implanted:Qty: 1 on 07/26/2022 by Lupillo Reyes MD at [facility] Right: Shoulder [employer] 11/12/2024 [id number] T / / [id number] [employer] Swivelock C 4.75mm 19.1mm Closed Eyelet Vent [place] Suture Ar-[id number] - [id number] Implanted:Qty: 1 on 07/26/2022 by Lupillo Reyes MD at [facility] Right: Shoulder [employer] 02/12/2026 [id number] / / [id number] Explanted Type Area Signal Manager Device Identifier Shelf Expiration Date Model / Serial / Lot [employer] Universa 6fr 24cm Radiopaque Graduate Firm Monofilament Tether [id number] - [id number] Implanted:Qty: 1 on 2024 by Chelsea Haywood MD at [facility] Explanted:Qty: 1 on 07/19/2024 by Rob Kline MD Stent Right: Ureter [employer] [id number] 12/28/2026 [id number] / / [id number] Procedures Procedure Name Priority Date/Time Associated Diagnosis Comments HEPATITIS C ANTIBODY Routine 2024 5:02 PM CDT COLONOSCOPY 07/18/2017 9:10 AM CDT from Last 3 Months or Most Recently Relevant to Health Maintenance Results * Hepatitis C antibody Blood (2024 5:02 PM CDT) Hep C Ab Nonreactive Nonreactive Comment:Antibodies to HCV no t detected. Does NOT exclude the possibility of recent exposure to HCV. Current interpretive data was last revised on 21 Blood 2024 5:02 PM CDT 2024 5:30 PM CDT [facility] MICROBIOLOGY - GENER AL ORDERABLES Final Result Performing Organization Address City/State/ZIP Co ks Phone Number [facility] Department [place] [address] * COLONOSCOPY (07/18/2017 9:10 AM CDT) Anatomical Region Laterality Modality Other Narrative Procedure Note Mike Locke MD - 07/18/2017 9:10 AM CDT [facility] Patient Name: Camille Shultz Procedure Date: 07/18/2017 9:10 AM Date of : 1960 Admit Type: Outpatient Age: 57 Gender: Female Attending MD: Mike Locke MD Room: [facility] ENDOSCOPY CAPSULE Note Status: Finalized [...] passed under direct vision.The Pediatric Colonoscope [id number]-[id number] was introduced through the anus and advanced [...] 9:10 AM Procedure Code(s): --- Professional --- 59722, Colonoscopy, flexible; diagnostic, including collection of specimen(s) by brushing or washing, when performed (separateprocedure) Diagnosis Code(s): --- Professional --- Z86.010, Personal history of colonic polyps K64.8, Other hemorrhoids K57.30, Diverticulosis of large intestine without perforation orabscess without bleeding CPT copyright 2017 [employer] [place]. All rights reserved. The codes documented in this report are preliminary and upon air intercept controller supervisor reviewmay be revised to meet current compliance requirements. 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
--- OUTSIDE RECORDS SUMMARY | 2025-01-30 07:32 | XMS_ITS | Encounter Summary ---
Author Organization [facility] Address [address] [place] [address] Care Team Providers Care Box Printer Name Role Phone Yancy Guerrero MD Primary Care Provider + Encounter Details Date Type Department Care Team (Latest Contact Info) Description 03/10/2006 Outpatient Historical HIS [facility] SRIDHAR Velázquez, [place] [address] [facility] [address] [place] [address] Lump or Mass in Breast (Primary Dx) Social History Tobacco Use Types Packs/Day Years Used Date Smoking Tobacco: Never Assessed Comments Unknown Sex and Gender Information Value Date Recorded Sex Assigned at Not on file Legal Sex Female 4:27 AM 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
--- OUTSIDE RECORDS SUMMARY | 2025-01-30 07:32 | XMS_ITS | Clinical Summary ---
Author Organization [facility] Address [address] [facility] [place] [address] Phone Care Team Providers Care Trim Setter Helper Name Role Phone Yancy Guerrero MD [...] on file Legal Sex Female 4:27 AM SEO EXPERT Gender Identity Not on file Sexual Orientation Not on file Occupation Industry Job Start Date Job End Date Not on file Not on file Not on file Not on file Last Filed Vital Signs Vital Sign Reading Time Taken Comments Blood Pressure 132/89 12/30/2016 11:52 AM SEO EXPERT Pulse 92 12/30/2016 11:52 AM SEO EXPERT Temperature 36.9 C (98.4 F) 01/29/2009 11:30 AM SEO EXPERT Respiratory Rate 16 01/29/2009 11:30 AM SEO EXPERT Oxygen Saturation 93% 01/29/2009 11:30 AM SEO EXPERT Inhaled Oxygen Concentration - - Weight 76.7 kg (169 lb) 12/30/2016 11:52 AM SEO EXPERT Height 167.6 cm (5' 6) 12/30/2016 11:52 AM SEO EXPERT Body Mass Index 27.28 12/30/2016 11:52 AM SEO EXPERT Plan of Treatment Health Maintenance Due Date [...] series) 2036 Medical Devices Implanted Type Area Hse Coordinator Device Identifier Shelf Expiration Date Model / Serial / Lot Sling Monarc [id number] Implanted:Qty: 1 on 01/28/2009 at [facility] Sling Pelvis AMS AM [id number] / / Procedures Procedure Name Priority Date/Time [...] ASSESSMENT: BI-RADS CATEGORY 1: Negative DICTATION LOCATION: [facility] Narrative 10/31/2019 3:53 PM CDT [...] ASSESSMENT: BI-RADS CATEGORY 1: Negative DICTATION LOCATION: [facility] Tod [place] MD MAMMO ORDERABLES Final Result from Last 3 Months or Most Recently Relevant to Health Maintenance Insurance [employer] [id number] POS II Advance Directives For more information, please contact: [phone] * Full Code (Latest Code Status on File) Date Activated Date Inactivated Comments 01/28/2009 9:06 PM 01/29/2009 4:29 PM * Full Code Date Activated Date Inactivated Comments 01/28/2009 7:38 PM 01/28/2009 9:06 PM * Full Code Date Activated Date Inactivated Comments 01/28/2009 2:46 PM 01/28/2009 7:38 PM Care Teams Trim Setter Helper Relationship Specialty Start Date End Date Yancy Guerrero MD [address] [place] [phone] PCP - General Internal Medicine 09/22/14
--- OUTSIDE RECORDS SUMMARY | 2025-01-30 07:32 | XMS_ITS | Clinical Summary ---
Author Organization [facility] [facility] Address [address] [place] [address] Care Team Providers Care Nuclear Powerplant Mechanic Name Role Phone Yancy Guerrero MD Primary Care Provider + Social History Tobacco Use Types Packs/Day Years Used Date Smoking Tobacco: Never Assessed Comments Unknown Sex and Gender Information Value Date Recorded Sex Assigned at Not on file Legal Sex Female 1:54 PM EDT Gender Identity Not on file Sexual Orientation Not on file Plan of Treatment Not on file Medical Devices Not on file Care Teams Nuclear Powerplant Mechanic Relationship Specialty Start Date End Date Yancy Guerrero MD [address] [place] [address] PCP - General Senior Data Modeler 12/06/19
--- OUTSIDE RECORDS SUMMARY | 2025-01-30 07:32 | XMS_ITS | Encounter Summary ---
Author Organization [facility] [employer] [facility] Address [address] [place] [address] Phone Care Team Providers Care Transplant Rn Name Role Phone Yancy Guerrero MD Primary Care Provider + [phone] Lupillo Reyes MD Unavailable [phone] Encounter Details Date Type Department Care Team (Latest Contact Info) Description 04/10/2013 Orders Only [facility] Wendy Choudhary RN [address] [facility] [address] [place], [place] [id number] Social History Tobacco Use Types Packs/Day Years Used Date Smoking Tobacco: Never Assessed Comments Unknown Sex and Gender Information Value Date Recorded Sex Assigned at Not on file Legal 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 INVESTMENT BANKING ASSOCIATE Gender Identity Not on file Sexual [...] COVID: Suspected 12/06/2019 12/06/2019 12/20/2019 3:05 AM INVESTMENT BANKING ASSOCIATE COVID: Suspected 01/14/2021 01/14/2021 01/14/2021 9:43 PM INVESTMENT BANKING ASSOCIATE COVID: Suspected 01/17/2021 01/17/2021 01/18/2021 5:33 AM INVESTMENT BANKING ASSOCIATE COVID: Suspected 08/06/2021 08/06/2021 08/07/2021 3:05 AM CDT COVID: Suspected 08/06/2021 08/06/2021 08/07/2021 3:18 AM CDT COVID19 08/06/2021 08/06/2021 08/16/2021 3:05 AM CDT COVID: Recovered Comment:Added based on recent COVID infection. 08/16/2021 08/16/2021 12/14/2021 3:05 AM C DT COVID: Suspected 09/23/2021 09/23/2021 09/23/2021 10:56 PM CDT COVID: Suspected 09/29/2021 09/29/2021 09/29/2021 10:32 PM CDT COVID: Suspected 12/24/2021 12/25/2021 12/25/2021 3:05 AM INVESTMENT BANKING ASSOCIATE COVID: Suspected 12/25/2021 12/25/2021 12/26/2021 3:05 AM INVESTMENT BANKING ASSOCIATE COVID: Suspected 12/25/2021 12/25/2021 12/26/2021 3:49 PM INVESTMENT BANKING ASSOCIATE MDR gram neg/ESBL 2024 08/28/2024 documented as of this encounter Care Teams Transplant Rn Relationship Specialty Start Date End Date Yancy Guerrero MD [address] [place] [address] PCP - General 05/22/16 Lupillo Reyes MD [address] [facility] [address] [place] [address] Consulting Physician Orthopedic Surgery 07/26/22 documented as of this encounter
--- OUTSIDE RECORDS SUMMARY | 2025-01-30 07:32 | XMS_ITS | Patient Health Record ---
Author Organization 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 [email or web address] [facility] [address] [address] 02/28/2024 Arcelia Tripp Major depressive disorder, recurrent severe without psychotic features F33.2 ; Generalized anxiety disorder F41.1 ; Alcohol abuse F10.10 and PTSD (post-traumatic stress disorder) F43.10 [facility] [employer] [facility] [address] [address] 02/13/2024 Arcelia Tripp [facility] [employer] [facility] [address] [address] 02/26/2024 Arcelia Tripp [facility] [employer] [facility] [address] [address] 03/06/2024 Arcelia Tripp [facility] [employer] [facility] [address] [address] 12/18/2024 Arcelia Tripp [facility] [employer] [facility] [address] [address] 12/20/2024 Arcelia Tripp [facility] [employer] [facility] [address] [address] 01/01/2025 Arcelia Tripp Assessments Encounter Date Diagnosis (ICD Code) Assessment Notes Treatment Notes Treatment Clinical Notes Section Notes 02/28/2024 Major depressive disorder, recurrent severe without psychotic features (ICD-10 - F33.2) Depression Continue with weekly therapy sessions to address underlying issues. Utilize a daily workforce planner incorporating affirmations and goals to foster [...] of the potential tear. Consult with an energy management specialist for a comprehensive evaluation and to [...] to address underlying issues. Utilize a daily workforce planner incorporating affirmations and goals to foster [...] of the potential tear. Consult with an energy management specialist for a comprehensive evaluation and to [...] to address underlying issues. Utilize a daily workforce planner incorporating affirmations and goals to foster [...] of the potential tear. Consult with an energy management specialist for a comprehensive evaluation and to [...] to address underlying issues. Utilize a daily workforce planner incorporating affirmations and goals to foster [...] of the potential tear. Consult with an energy management specialist for a comprehensive evaluation and to [...] Insured Coverage Start Date Coverage End Date [facility] [address] [place] [address] [id number] Camille Hendricks Self - patient is the [...]
--- OUTSIDE RECORDS SUMMARY | 2025-01-30 07:32 | XMS_ITS | Encounter Summary ---
Author Organization [facility] [employer] [facility] Address [address] [place] [address] Phone Care Team Providers Care Rivet Sorter Name Role Phone Yancy Guerrero MD Primary Care Provider + [phone] Lupillo Reyes MD Unavailable [phone] Encounter Details Date Type Department Care Team (Latest Contact Info) Description 03/28/2023 Orders Only [facility] Wendy Choudhary, ISAIAS [address] [facility] [address] [place], [place] [phone] Social History Tobacco Use Types Packs/Day Years [...] on file Legal 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 BAG LINER Gender Identity Not on file Sexual Orientation [...] documented as of this encounter Care Teams Rivet Sorter Relationship Specialty Start Date End Date Yancy Guerrero MD [address] [place] [address] PCP - General 05/22/16 Lupillo Reyes MD [address] [facility] [address] [facility] [address] [place] [address] Consulting Physician Orthopedic Surgery 07/26/22 documented as of this encounter
--- OUTSIDE RECORDS SUMMARY | 2025-01-30 07:32 | XMS_ITS | Encounter Summary ---
Author Organization [facility] [employer] [facility] Address [address] [place] [address] Phone Care Team Providers Care Data Entry Assistant Name Role Phone Yancy Guerrero MD Primary Care Provider + [phone] Lupillo Reyes MD Unavailable [phone] Encounter Details Date Type Department Care Team (Latest Contact Info) Description 11/25/2010 Orders Only [facility] Wendy Choudhary RN [address] [facility] [address] [place], [place] [phone] Social History Tobacco Use Types Packs/Day Years Used Date Smoking Tobacco: Never Assessed Comments Unknown Sex and Gender Information Value Date Recorded Sex Assigned at Not on file Legal 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 SENIOR NETWORK SYSTEMS ENGINEER Gender Identity Not on file [...] Suspected 12/06/2019 12/06/2019 12/20/2019 3:05 AM SENIOR NETWORK SYSTEMS ENGINEER COVID: Suspected 01/14/2021 01/14/2021 01/14/2021 9:43 PM SENIOR NETWORK SYSTEMS ENGINEER COVID: Suspected 01/17/2021 01/17/2021 01/18/2021 5:33 AM SENIOR NETWORK SYSTEMS ENGINEER COVID: Suspected 08/06/2021 08/06/2021 08/07/2021 3:05 AM CDT COVID: Suspected 08/06/2021 08/06/2021 08/07/2021 3:18 AM CDT COVID19 08/06/2021 08/06/2021 08/16/2021 3:05 AM CDT COVID: Recovered Comment:Added based on recent COVID infection. 08/16/2021 08/16/2021 12/14/2021 3:05 AM C DT COVID: Suspected 09/23/2021 09/23/2021 09/23/2021 10:56 PM CDT COVID: Suspected 09/29/2021 09/29/2021 09/29/2021 10:32 PM CDT COVID: Suspected 12/24/2021 12/25/2021 12/25/2021 3:05 AM SENIOR NETWORK SYSTEMS ENGINEER COVID: Suspected 12/25/2021 12/25/2021 12/26/2021 3:05 AM SENIOR NETWORK SYSTEMS ENGINEER COVID: Suspected 12/25/2021 12/25/2021 12/26/2021 3:49 PM SENIOR NETWORK SYSTEMS ENGINEER MDR gram neg/ESBL 2024 08/28/2024 documented as of this encounter Care Teams Data Entry Assistant Relationship Specialty Start Date End Date Yancy Guerrero MD [address] [place] [address] PCP - General 05/22/16 Lupillo Reyes MD [address] [facility] [address] [place] [address] Consulting Physician Orthopedic Surgery 07/26/22 documented as of this encounter
--- OUTSIDE RECORDS SUMMARY | 2025-01-30 07:32 | XMS_ITS | Encounter Summary ---
Author Organization [facility] [employer] [facility] Address [address] [place] [address] Phone Care Team Providers Care Brazer Assembler Name Role Phone Yancy Guerrero MD Primary Care Provider + [phone] Lupillo Reyes MD Unavailable Encounter Details Date Type Department Care Team (Latest Contact Info) Description 04/03/2023 Orders Only [facility] Wendy Choudhary, ISAIAS [address] [facility] [address] [place], [place] [phone] Social History Tobacco Use Types Packs/Day Years [...] on file Legal 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 PATIENT CARE TECHNICIAN Gender Identity Not on file Sexual [...] documented as of this encounter Care Teams Brazer Assembler Relationship Specialty Start Date End Date Yancy Guerrero MD [address] [place] [address] PCP - General 05/22/16 Lupillo Reyes MD [address] [facility] [address] [facility] [address] [place] [address] Consulting Physician Orthopedic Surgery 07/26/22 documented as of this encounter
--- OUTSIDE RECORDS SUMMARY | 2025-01-30 07:32 | XMS_ITS | Encounter Summary ---
Author Organization [facility] Address [address] [place] [address] Care Team Providers Care Control Clerk Head Name Role Phone Yancy Guerrero MD Primary Care Provider + Encounter Details Date Type Department Care Team (Latest Contact Info) Description 05/10/2004 Outpatient Historical HIS [facility] Tod Cifuentes MD [address] [facility] [address] [place] [phone] SCREENING MAMM-MAILG NEOPL-OTHER (Primary Dx) Social History Tobacco Use Types Packs/Day Years Used Date Smoking Tobacco: Never Assessed Comments Unknown Sex and Gender Information Value Date Recorded Sex Assigned at Not on file Legal Sex Female 4:27 AM GIS PHYSICAL SCIENTIST Gender Identity Not on file Sexual Orientation Not on file documented as of this encounter Plan of Treatment Not on file documented as of this encounter Visit Diagnoses Diagnosis Other screening mammogram- Primary documented in this encounter Care Teams Control Clerk Head Relationship Specialty Start Date End Date Yancy Guerrero MD [address] [place] [address] PCP - General Internal Medicine 09/22/14 documented as of this encounter
--- OUTSIDE RECORDS SUMMARY | 2025-01-30 07:32 | XMS_ITS | Encounter Summary ---
Author Organization [facility] [place] [facility] Address [address] [place] [address] Phone Care Team Providers Care Histology Specialist Name Role Phone Yancy Guerrero MD Primary Care Provider + [phone] Lupillo Reyes MD Unavailable [phone] Encounter Details Date Type Department Care Team (Latest Contact Info) Description 04/13/2023 Orders Only [facility] Wendy Choudhary, ISAIAS [address] [facility] [address] [place], [place] [id number] Social History Tobacco Use Types Packs/Day Years [...] on file Legal 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 YOUTH TEACHER Gender Identity Not on file Sexual [...] documented as of this encounter Care Teams Histology Specialist Relationship Specialty Start Date End Date Yancy Guerrero MD [address] [place] [address] PCP - General 05/22/16 Lupillo Reyes MD [address] [facility] [address] [facility] [address] [place] [address] Consulting Physician Orthopedic Surgery 07/26/22 documented as of this encounter
--- OUTSIDE RECORDS SUMMARY | 2025-01-30 07:32 | XMS_ITS | Encounter Summary ---
Author Organization [facility] Address [address] [place] [address] Phone Care Team Providers Care Automated Equipment Engineer Technician Name Role Phone Yancy Guerrero MD Primary Care Provider + [phone] Lupillo Reyes MD Unavailable [phone] Encounter Details Date Type Department Care Team (Latest Contact Info) Description 04/28/2023 Orders Only [facility] Wendy Choudhary, ISAIAS [address] [facility] [address] [place], [place] [id number] Social History Tobacco Use Types Packs/Day Years [...] on file 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
--- OUTSIDE RECORDS SUMMARY | 2025-01-30 07:32 | XMS_ITS | Clinical Summary ---
Author Organization [facility] Address [address] [place] [address] Care Team Providers Care Tempering Kiln Tender Name Role Phone Yancy Guerrero MD Primary Care Provider [phone] Social History Tobacco Use Types Packs/Day Years [...] of 2) 06/22/2011 COVID-19 Vaccine ( - 2024-2 6 season) 2024 Influenza Adult (#1) 2024 RSV Immunization or 60+ Years (1 - 1-dose 75+ series) 2036 Hepatitis A Vaccines Aged Out No long er eligible based on patient's age to complete this topic Meningococcal B Vaccine Aged Out No l onger eligible based on patient's age to complete this topic Meningococcal Vaccine Aged Out No laina bud eligible based on patient's age to complete this topic RSV Immunizations Under 20 Months Aged Out No longer eligible based on patient's age to complete this topic Insurance [employer] [place] Care Teams Tempering Kiln Tender Relationship Specialty Start Date End Date Yancy Guerrero MD [address] [place] [address] PCP - General INTERNAL MEDICINE 06/26/24
--- OUTSIDE RECORDS SUMMARY | 2025-01-30 07:33 | XMS_ITS | Encounter Summary ---
Author Organization [facility] Address [address] [place] [address] Care Team Providers Care Millinery Blocker Name Role Phone Yancy Guerrero MD Primary Care Provider + Encounter Details Date Type Department Care Team (Latest Contact Info) Description 05/02/2003 Outpatient Historical [facility] Tod Cifuentes MD [address] [facility] [address] [place] [phone] SCREENING MAMM-MAILG NEOPL-OTHER (Primary Dx) Social History Tobacco Use Types Packs/Day Years Used Date Smoking Tobacco: Never Assessed Comments Unknown Sex and Gender Information Value Date Recorded Sex Assigned at Not on file 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
== END 2025-01-30 07:28 | disposition home or self-care (01) ==
PROVIDERS: PCP Internal Medicine; Visit Provider Internal Medicine
DX: Z12.31 Encounter for screening mammogram for malignant neoplasm of breast (principal); Z78.0 Asymptomatic menopausal state
CPT/HCPCS: 77063; 77067; 77080